=== PATIENT | female | born 1990 | race Caucasian/White ===

== ENCOUNTER 2020-01-19 18:48 | Emergency (ER) | payer BC, OTHER ==
[~2020-01-19] VITALS: Ht 162.6 cm; Wt 100.2 kg
[2020-01-19] MEDS ORDERED: LEVO25TA5 (18:55)
[2020-01-19] MEDS ORDERED: KETOROLAC 60 MG/2 ML VIAL (J1885) IM ONE (20:00)
[2020-01-19] MEDS ORDERED: KETO10TAB PO (21:24)
[2020-01-19] MEDS ORDERED: CYCL5TAB PO (21:24)
[2020-01-19 21:37] VITALS: BP 155/87
== END 2020-01-19 21:42 | disposition home or self-care (01) ==
LOC: M ED 18:48
DX: M54.16 Radiculopathy, lumbar region (principal); E06.3 Autoimmune thyroiditis; M32.9 Systemic lupus erythematosus, unspecified; Z79.899 Other long term (current) drug therapy; Z88.2 Allergy status to sulfonamides
CPT/HCPCS: 81001; 87088; 87186; 96372; 99283; J1885

== ENCOUNTER → 2020-07-23 | Outpatient (CLI) | payer OTHER ==
[~2020-07-23] MED LIST: ASPI81TAEC PO; CYCL5TAB PO; DOCU100C16 PO; IBUP1TAB7 PO; KETO10TAB PO; LEVO25TA5 PO; METF-839 PO; METF750T36 PO; PERCOCET PO
== END ==
LOC: M LABSMTC 12:05
PROVIDERS: ATTEND Anesthesiology
DX: Z11.59 Encounter for screening for other viral diseases (principal)
CPT/HCPCS: C9803; U0003

== ENCOUNTER 2020-07-28 06:20 | Day surgery (SDC) | payer OTHER ==
[2020-07-28] VITALS (7 sets, daily range): BP systolic 133–150; BP diastolic 74–85
[~2020-07-28] VITALS: Ht 162.6 cm; Wt 99.6 kg
[~2020-07-28 06:20] MED LIST changes: -ASPI81TAEC PO; -DOCU100C16 PO; -IBUP1TAB7 PO; -METF750T36 PO; -PERCOCET PO
[2020-07-28 06:50] LABS: HEMATOCRIT 42.5 % (36.0-47.0); HEMOGLOBIN 13.8 g/dl (12.0-15.5); MEAN CORPUSCULAR HEMOGLOBIN 30.7 pg (27.0-33.0); MEAN CORPUSCULAR HGB CONC 32.5 g/dl (32.0-36.5); MEAN CORPUSCULAR VOLUME 94.4 fl (80.0-96.0); PLATELET COUNT, AUTOMATED 302 10^3/uL (150-450); WHITE BLOOD COUNT 7.9 10^3/uL (4.0-10.0)
[2020-07-28] MEDS ORDERED: ceFAZolin SOD 2 GM in IV 1 EA IV ONE (07:00)
[2020-07-28] MEDS ORDERED: ROCURONIUM BROMIDE 50 MG/5 ML VIAL As Ordered ONE ×2 (07:00→08:06)
[2020-07-28] MEDS ORDERED: ONDANSETRON 4MG/2ML VIAL As Ordered ONE (07:00)
[2020-07-28] MEDS ORDERED: dexameTHASONE 4 MG/ML 1ML VIAL (J1100 PER 1MG) As Ordered ONE (07:00)
[2020-07-28] MEDS ORDERED: LIDOCAINE 2% 100MG/5ML SDV (FOR ANES.) As Ordered ONE (07:00)
[2020-07-28] MEDS ORDERED: LR 1,000 ML IV ONE (07:00)
[2020-07-28] MEDS ORDERED: propofoL 200 MG/20 ML VIAL As Ordered ONE ×2 (07:00→07:03)
[2020-07-28] MEDS ORDERED: ACETAMINOPHEN 1000MG 100ML IV BTL (OFIRMEV) (J0131 PER 10MG) As Ordered ONE (07:00)
[2020-07-28] MEDS ORDERED: fentaNYL 250 MCG/5 ML INJECTION (J3010) As Ordered ONE (07:00)
[2020-07-28] MEDS ORDERED: KETOROLAC 60MG 2ML VIAL As Ordered ONE (07:00)
[2020-07-28] MEDS ORDERED: MIDAZOLAM INJ 2MG/2ML VIAL (J2250 PER 1MG) As Ordered ONE (07:01)
[2020-07-28] MEDS ORDERED: BUPIVACAINE HCL 0.25% 30ML VIAL As Ordered ONE (07:15)
[2020-07-28] MEDS ORDERED: METHYLENE BLUE 0.5% (5MG/ML) 10 ML AMP (PROVAYBLUE) As Ordered ONE (07:15)
[2020-07-28] MEDS ORDERED: LABETALOL 100MG/20ML VIAL As Ordered ONE (08:12)
[2020-07-28] MEDS ORDERED: SUGAMMADEX SODIUM 500 MG/5 ML VIAL (BRIDION) As Ordered ONE (08:30)
[2020-07-28] MEDS ORDERED: MORPHINE 4 MG/ML 1ML VIAL/SYRINGE (J2270) IV PRN (10:30)
[2020-07-28] MEDS ORDERED: ONDANSETRON 4MG/2ML VIAL IV PRN ×2 (10:30→10:45)
[2020-07-28] MEDS ORDERED: LR 1,000 ML IV SCH (10:30)
[2020-07-28] MEDS ORDERED: PERCOCET 5MG/325MG TAB PO PRN ×2 (10:30)
[2020-07-28] MEDS ORDERED: oxyCODONE 5MG TAB PO PRN (10:30)
[2020-07-28] MEDS ORDERED: KETOROLAC 30 MG/ML 1ML VIAL IV PRN (10:30)
[2020-07-28] MEDS ORDERED: fentaNYL 100 MCG/2 ML INJECTION (J3010) IV PRN (10:30)
[2020-07-28] MEDS ORDERED: METF750T36 PO (10:36)
[2020-07-28] MEDS: LR 1,000 ML IV SCH ×2 (11:47→14:22)
--- NOTE | 2020-07-28 13:14 | ROOPDOC ---
[facility] Report Of Operation Report of Operation DATE OF PROCEDURE: 07/28/20 PREPROCEDURE DIAGNOSES: Abnormal uterine bleeding, chronic pelvic pain. Suspect adenomyosis POSTPROCEDURE DIAGNOSES: Same. PROCEDURE: Robotic-assisted total laparoscopic hysterectomy, right salpingectomy, cystoscopy SURGEON: Brooks Wilkinson D.O. FACOG PROFESSIONAL BONDSMAN: Starla Tellez ANESTHESIA: General endotracheal. ESTIMATED BLOOD LOSS: Approximately 50 mL. FLUIDS REPLACED: 1300 mL LR URINE OUTPUT: 200 mL COMPLICATIONS: None. FINDINGS: Normal-appearing ovaries bilaterally. Mildly enlarged uterus, surgically absent left fallopian tube. Cystoscopy: Bilateral ureteral orifice efflux, no bladder injury/suture material. PREOPERATIVE ANTIBIOTIC PROPHYLAXIS: Ancef 2 g IV 1. SPECIMEN(S): Uterus w/ cervix, fallopian tube (right) DESCRIPTION OF PROCEDURE: The patient was counseled, consented on the respective benefits, indications, alternatives of procedure. Informed consent was obtained. She was taken to the operating room with an IV running. She was placed on the operating table in dorsal supine position. Gen. anesthesia was administered and the airway was secured without any difficulty. She was placed in the low lithotomy position. . She was prepared and draped in the normal sterile fashion. A time out was performed per protocol. A Cuevas catheter was placed under sterile conditions. A sterile speculum was placed resulting in good visualization of the cervix. A single-tooth tenaculum was used to grasp the anterior lip cervix. The cervix was sequentially dilated with Antony dilators. A V-Care uterine manipulator was placed without any difficulty. The single-tooth tenaculum was removed, as well as the speculum. A sterile glove switch was performed. Attention was turned to the abdomen. 2mL 0.25% Marcaine was injected in the umbilicus. A 2mm incision was made, and through this incision a Veress needle was inserted into the intraperitoneal cavity. Intraperitoneal placement was confirmed with ease of flow of normal saline, positive drop test, no return on aspiration, and an opening pressure of less than 10 mmHg upon initial insufflation. The abdomen was insufflated with 2 L of gas. The Veress needle was removed. A supraumbilical 8 mm incision was made. Through this incision, the robotic trochar/cannula was inserted into the intraperitoneal cavity under direct visualization. No incidental bleeding nor injury was noted. Patient was placed in 30 Trendelenburg. The right and left trocars/cannulas were placed on both the right and left side through 8 mm incisions, guided by laparoscopic visualization. No incidental bleeding nor injury was noted. The robot was docked in typical fashion. The instruments were inserted, guided by laparoscopic visualization. My attention was turned to the robotic console. Using the vessel sealer device, the right fallopian tube was amputated. The right fallopian tube was brought through the 8 mm cannula without any difficulty. The right utero-ovarian ligament and right round ligament were sequentially clamped, coagulated and transected with the vessel sealer device. The vesicouterine peritoneum was dissected with the vessel sealer device to create the bladder flap, thus mobilizing the lower uterine segment and cervix off of the bladder. The left utero-ovarian ligament and left round ligament were sequentially clamped, coagulated and transected with the vessel sealer device. The remainder of the bladder flap was dissected using the vessel sealer device and blunt dissection. The entire V- care colpotomy cup was able to be delineated. The right uterine vasculature was sequentially clamped, coagulated and transected above the colpotomy cup. The left uterine vasculature was sequentially clamped, coagulated and transected above the colpotomy cup. Excellent blanching of the uterus was noted. A circumferential colpotomy was performed using the da Prasanth monopolar chetna, following the contour of the cup. The amputated cervix and uterus were brought through the colpotomy into and out of the vagina, intact as one unit. The vaginal cuff was closed with the V-lock barbed suture in running fashion. Excellent hemostasis was noted throughout the steps above. Gildardo was placed over the vaginal cuff to ensure hemostasis. The instruments were removed from the abdomen and the robot was un-docked. The gas was released from the abdomen and the patient was taken out of Trendelenburg. I re-scrubbed, and attention was turned to the pelvis. The Cuevas catheter was removed. The cystoscope was placed transurethrally into the bladder and normal saline was instilled. No bladder injury/suture material was noted. IV methylene blue had been administered by anesthesia and bilateral UO efflux was confirmed. The fluid was drained out of the bladder through the cystoscope device, then the cystoscope was removed. The vagina was copiously irrigated. A sterile digital vaginal exam revealed no significant bleeding and an intact vaginal cuff. A sterile glove switch was performed. The cannulas were removed. The skin incisions were closed with 4-0 Monocryl in subcuticular fashion. Sponge, needle and instrument counts were correct per protocol. The patient tolerated the entire procedure very well. She was transferred to the PACU in good and stable condition. DO JORGE LUIS Roche JONATHAN R. DO Jul 28, 2020 13:14
[2020-07-28] MEDS ORDERED: DOCU100C16 PO (13:54)
[2020-07-28] MEDS ORDERED: IBUP1TAB7 PO (13:54)
[2020-07-28] MEDS ORDERED: PERCOCET PO (13:54)
[2020-07-28] MEDS: DOCUSATE SODIUM 100 MG CAP PO SCH (21:34)
[2020-07-29] MEDS: LR 1,000 ML IV SCH (00:45)
[2020-07-29 02:00] VITALS: BP 138/81
[2020-07-29 06:00] VITALS: BP 139/80
[2020-07-29] MEDS ORDERED: LEVOTHYROXINE 25MCG TABLET (0.025MG) PO SCH (06:00)
[2020-07-29] MEDS: DOCUSATE SODIUM 100 MG CAP PO SCH (08:05)
== END 2020-07-29 11:00 | disposition home or self-care (01) ==
LOC: M SDC 06:20 → M MS5PR 11:35 → M SDC 07-29 11:00
PROVIDERS: ATTEND Obstetrics & Gynecology
DX: N93.9 Abnormal uterine and vaginal bleeding, unspecified (principal); R10.2 Pelvic and perineal pain; N72 Inflammatory disease of cervix uteri; E03.9 Hypothyroidism, unspecified; E28.2 Polycystic ovarian syndrome; G43.909 Migraine, unspecified, not intractable, without status migrainosus; M32.9 Systemic lupus erythematosus, unspecified; Z79.890 Hormone replacement therapy; Z79.84 Long term (current) use of oral hypoglycemic drugs; Z88.2 Allergy status to sulfonamides; Z91.040 Latex allergy status; Z91.048 Other nonmedicinal substance allergy status
CPT/HCPCS: 36415; 58571; 81025; 85027; 86850; 88307; J0131; J0690; J1100; J1885; J2250; J2405; J3010; Q9968

== ENCOUNTER → 2020-08-15 | Outpatient (REF) | payer OTHER ==
[~2020-08-15] MED LIST changes: +ASPI81TAEC PO; +DOCU100C16 PO; +IBUP1TAB7 PO; +METF750T36 PO; +PERCOCET PO
[2020-08-15 13:45] LABS: HEMATOCRIT 42.6 % (36.0-47.0); HEMOGLOBIN 13.8 g/dl (12.0-15.5); MEAN CORPUSCULAR HEMOGLOBIN 30.7 pg (27.0-33.0); MEAN CORPUSCULAR HGB CONC 32.4 g/dl (32.0-36.5); MEAN CORPUSCULAR VOLUME 94.7 fl (80.0-96.0); PLATELET COUNT, AUTOMATED 321 10^3/uL (150-450); WHITE BLOOD COUNT 7.9 10^3/uL (4.0-10.0)
[2020-08-15 14:19] LABS: FREE T4 0.9 NG/DL (0.76-1.46); THYROID STIMULATING HORMONE 0.921 uIU/ML (0.358-3.740)
[2020-08-15 14:23] LABS: ESTRADIOL 93.5 PG/ML; FOLLICLE STIMULATING HORMONE 3.5 mIU/mL; LUTEINIZING HORMONE 6.7 mIU/mL
[2020-08-15 14:37] LABS: HEMOGLOBIN A1c 5.2 %
[2020-08-16 12:07] LABS: TESTOSTERONE FREE (DIRECT) 3.1 pg/mL (0.0-4.2)
== END ==
LOC: M PLALAB 11:04
PROVIDERS: ATTEND Obstetrics & Gynecology
DX: E28.2 Polycystic ovarian syndrome (principal)

== ENCOUNTER 2020-09-22 05:03 | Inpatient (IN) | payer OTHER ==
[~2020-09-22] VITALS: Ht 162.6 cm; Wt 98.3 kg
[~2020-09-22 05:03] MED LIST changes: -ASPI81TAEC PO
[2020-09-22] MEDS ORDERED: NS 1,000 ML IV SCH (07:06)
[2020-09-22] MEDS ORDERED: KETOROLAC 30 MG/ML 1ML VIAL IV ONE ×2 (07:15→09:30)
[2020-09-22] MEDS ORDERED: NS 1,000 ML IV ONE (07:15)
[2020-09-22 07:33] LABS: BASO # 0.1 10^3/uL (0.0-0.2); BASO % 0.5 % (0.0-1.0); EOS # 0.4 10^3/uL (0.0-0.5); EOS % 3.6 % (0.0-3.0); HEMATOCRIT 41.8 % (36.0-47.0); HEMOGLOBIN 13.8 g/dl (12.0-15.5); LYMPH # 1.8 10^3/uL (1.5-5.0); LYMPH % 16.7 % (24.0-44.0); MEAN CORPUSCULAR HEMOGLOBIN 30.5 pg (27.0-33.0); MEAN CORPUSCULAR VOLUME 92.3 fl (80.0-96.0); MONO # 0.8 10^3/uL (0.0-0.8); MONO % 7.3 % (0.0-5.0); NEUTROPHILS # 7.5 10^3/uL (1.5-8.5); NEUTROPHILS % 71.6 % (36.0-66.0); PLATELET COUNT, AUTOMATED 318 10^3/uL (150-450); RED BLOOD COUNT 4.53 10^6/uL (4.00-5.40); WHITE BLOOD COUNT 10.5 10^3/uL (4.0-10.0)
[2020-09-22] MEDS ORDERED: ISOVUE-370 76% 100ML VIAL As Ordered ONE (07:47)
[2020-09-22 07:56] LABS: ALBUMIN 4.1 GM/DL (3.2-5.2); BILIRUBIN,DIRECT 0.2 MG/DL (0.0-0.2); BILIRUBIN,TOTAL 0.6 MG/DL (0.2-1.0); TOTAL PROTEIN 7.4 GM/DL (6.4-8.2)
--- NOTE | 2020-09-22 08:42 | REP ---
INDICATION: abd pain. COMPARISON: None. TECHNIQUE: Bolus 100 mL Isovue 370 scanning through the abdomen and pelvis with coronal and sagittal reconstructions. FINDINGS: CT abdomen: There is calcified granuloma in the lateral basal segment of the left lower lobe. Minor dependent atelectatic changes are seen without effusion or mass heart is not enlarged there is no pericardial thickening or effusion. No hiatal hernia. See no hepatosplenomegaly the spleen shows 2 wedges of hypodensity within intervening normal tissue. There is no ascites or perisplenic hematoma. No history of trauma. Gallbladder is surgically absent. Pancreas was unremarkable. The aorta is without aneurysm. No periaortic or other retroperitoneal lymphadenopathy seen small bowel loops and colon in the abdomen proper were unremarkable. Kidneys show symmetric enhancement and no mass, stone, or hydronephrosis. There is a interpolar left renal cyst peripherally. Lung window review of all CT slices in the abdomen and pelvis shows no free air perforation. Bone windows show lumbar and thoracic spine with no compression deformities or destructive lesions a few small marginal osteophytes and lower thoracic levels are normal in this age group. Visualized ribs are intact CT pelvis: Sacrum, SI joints, iliac bones, hips and acetabulae show no fracture or destructive lesion. There is some minor degenerative changes did fear left SI joint. Abdominal and pelvic portions of colon show scattered stool and gas without colitis or diverticulitis. A trace amount of free fluid in the right deep pelvis adjacent to the sigmoid. Small bowel loops are fluid-filled but not abnormally dilated. There are no inflammatory changes in the mesentery. Uterus is absent the vaginal cuff intact. The right ovary shows an 18 mm dominant follicle and low-density throughout. I do not see a solid adnexal mass. No ventral or inguinal hernia, inguinal or pelvic lymphadenopathy identified. IMPRESSION: 1. Small amount of free fluid in the deep pelvis adjacent to the sigmoid and the deep and inferior to the right ovary which has low density throughout in a dominant follicle 18 mm. I could not exclude ruptured ovarian cyst or follicle. Patient is status post hysterectomy. 2. Multiple low-density wedge-shaped areas in the spleen with normal intervening enhancing parenchyma most consistent with splenic infarcts. There is no upper abdominal ascites. Liver unremarkable. 3. Prior cholecystectomy. Small left renal cyst. No other significant finding. <Electronically signed by Ranjit Walker > 09/22/20 [id number]
--- NOTE | 2020-09-22 09:57 | ECGEPIP ---
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
--- NOTE | 2020-09-22 11:09 | REP ---
In the right ovary. INDICATION: right pain Ct ?hemor cyst. COMPARISON: Comparison is made with today's CT study.. TECHNIQUE: Transabdominal and transvaginal scanning were performed. FINDINGS: The uterus is surgically absent. A small right-sided ureterocele is noted incidentally in the urinary bladder. This corresponds to the CT. No free fluid is seen in the cul-de-sac.. The right ovary has dimensions of 2.9 x 2.2 x 2.8 cm. It's Doppler flow is normal with a resistive index of 0.38. There is a 1.9 cm hypoechoic cyst The left ovary dimensions are normal as well at 2.3 x 2.1 x 1.6 cm. It's Doppler flow was normal with resistive index of 0.57. IMPRESSION: Incidental small right ureterocele in the urinary bladder. 1.9 cm hypoechoic follicle cyst right ovary. Normal left ovary. No free fluid. Uterus surgically absent.. <Electronically signed by Arsh Cano > 09/22/20 [id number]
[2020-09-22] MEDS ORDERED: ONDANSETRON 4MG/2ML VIAL IV ONE (12:30)
[2020-09-22] MEDS: MORPHINE 2 MG/ML 1ML VIAL (J2270) IV PRN ×2 (12:53→16:55)
[2020-09-22] MEDS ORDERED: ONDANSETRON 4MG/2ML VIAL IV PRN (14:00)
[2020-09-22] MEDS ORDERED: oxyCODONE 5MG TAB PO PRN (14:00)
[2020-09-22] MEDS: LEVOTHYROXINE 25MCG TABLET (0.025MG) PO SCH (15:59)
[2020-09-22 16:50] LABS: INR 1.03; PARTIAL THROMBOPLASTIN TIME 28.3 SECONDS (24.2-38.5); PROTHROMBIN TIME 13.7 SECONDS (12.5-14.3)
[2020-09-22] MEDS: ACETAMINOPHEN 500 MG TAB PO SCH ×2 (16:54→20:10)
[2020-09-22] MEDS: NS 1,000 ML IV SCH ×2 (17:48→20:05)
[2020-09-22 18:01] VITALS: BP 135/84
--- NOTE | 2020-09-22 20:29 | HPEPDOC ---
General Date of Admission Sep 22, 2020 at 13:56 Date of Service: Sep 22, 2020 Chief Complaint The patient is a 30-year-old female admitted with a reason for visit of Intractable Pain,Splenic Infarct. Source: Patient History of Present Illness Mrs. Navarro is a 30 year old female with Lupus not on medication her with intractable abdominal pain found to have splenic infarct. Pain started yesterday afternoon. Abdominal pain was right sided, sharp, and radiated up to the chest, shoulders, and neck. Pain would be constant with waves of worsening pain. Worse with movement, better with rest. Pain progressively worsened and she decided to come to the ED. Pain was 9/10. Imaging demonstrated small amounts of pelvic free fluid which may be from ruptured ovarian cyst or follicle. Also demonstrated splenic infarcts. ED spoke with general surgery. No surgery at this time but rec ommended work up for cause of infarct. ED called for admission. Due to her intractable pain, her diet is poor. Otherwise, no fever/chills or dysuria. Abdomen was tender on the right side, but not on the left. She has never had a miscarriage, but she did have a ruptured ectopic . No known family history of hypercoagulably. Denies history of atrial fibrillation. Home Medications Scheduled Levothyroxine Sodium (Levothyroxine Sodium) 25 Mcg Tablet, 25 MCG PO DAILY, (Reported) Allergies Coded Allergies: Sulfa (Sulfonamide Antibiotics) (Verified Allergy, Intermediate, CHILD, 07/18/20) anaph latex (Verified Allergy, Intermediate, RASH, 07/18/20) adhesive (Verified Adverse Reaction, Unknown, SURGICAL GLUE- ITCHING, 07/18/20) Past Medical History Medical History 1. Lupus 2. Rosendo's thyroiditis 3. PCOS Surgical History 1. Tonsillectomy and adenoidectomy 2. Cholecystectomy 3. Left fallopian tube removal 4. Hysterectomy Family History Father: Unknown history Mother: Stroke and disease of the mitral valve Social History Alcohol: rarely Drugs: denies A-FIB/CHADSVASC A-FIB History Current/History of A-Fib/PAF?: No Review of Systems Constitutional: Denies: Chills, Fever Eyes: Denies: Vision change ENT: Denies: Sore Throat Skin: Denies: Rash Pulmonary: Reports: Dyspnea (from pain), Pleuritic Chest Pain; Denies: Cough Cardiovascular: Denies: Palpitations, Lt Headedness Gastrointestinal: Reports: Nausea, Abdominal Pain (right sided) Genitourinary: Denies: Dysuria Hematologic: Denies: Bruising Endocrine: Denies: Polydipsia, Polyphagia, Polyuria Physical Examination General Exam: Positive: Alert, Cooperative, Mild Distress Eye Exam: Positive: EOMI; Negative: Sclera icteric ENT Exam: Positive: Atraumatic Neck Exam: Positive: Supple Chest Exam: Positive: Clear to auscultation; Negative: Rales, Rhonchi, Wheezing Heart Exam: Positive: Rate Normal, Regular Rhythm Abdomen Exam: Positive: Normal bowel sounds, Soft, Tenderness Extremity Exam: Negative: Edema Neuro Exam: Positive: Cranial Nerves 3-12 NL Psych Exam: Positive: Mood NL Vital Signs Vital Signs Date Time Temp Pulse Resp B/P (MAP) Pulse Ox O2 Delivery O2 Flow Rate FiO2 09/22/20 18:01 99.0 62 18 135/84 (101) 98 Room Air Laboratory Data Labs 24H Laboratory Tests 2 09/22/20 07:20: Immature Granulocyte % (Auto) 0.3, Neutrophils (%) (Auto) 71.6H, Lymphocytes (%) (Auto) 16.7L, Monocytes (%) (Auto) 7.3H, Eosinophils (%) (Auto) 3.6H, Basophils (%) (Auto) 0.5, Neutrophils # (Auto) 7.5, Lymphocytes # (Auto) 1.8, Monocytes # (Auto) 0.8, Eosinophils # (Auto) 0.4, Basophils # (Auto) 0.1, Nucleated Red Blood Cells % (auto) 0.0, Total Bilirubin 0.6, Direct Bilirubin 0.2, Aspartate Amino Transf (AST/SGOT) 23, Alanine Aminotransferase (ALT/SGPT) 32, Alkaline Phosphatase 74, Total Protein 7.4, Albumin 4.1, Albumin/Globulin Ratio 1.2, Lipase 85 09/22/20 07:27: POC Glucose (Misc Panel) 90, POC Sodium (Misc Panel) 139, POC Potassium (Misc Panel) 4.1, POC Chloride (Misc Panel) 103, POC Total CO2 (Misc Panel) 26.0, POC Blood Urea Nitrogen (Misc Panel 8, POC Ionized Calcium (Misc Panel) 4.9, POC Creatinine (Misc Panel) 0.7, POC Hematocrit (Misc Panel) 42.0 09/22/20 14:53: Coronavirus (COVID-19)(PCR) NEGATIVE 09/22/20 16:25: Erythrocyte Sedimentation Rate 10, Prothrombin Time 13.7, Prothromb Time International Ratio 1.03, Activated Partial Thromboplast Time 28.3, C-Reactive Protein, Quantitative 1.53H 09/22/20 16:26: CBC/BMP Laboratory Tests 09/22/20 07:20 Assessment/Plan Mrs. Navarro is a 30 year old female with Lupus who is here with intractable abdominal pain from splenic infarction. Unknown etiology. Will monitor on Tele for atrial fibrillation and order an echo with bubble study to look for PFO. Will also obtain a hypercoagulable work up. Plan / VTE VTE Prophylaxis Ordered?: Yes Plan Plan 1. Intractable pain -2/2 to splenic infarcts -Pain control with scheduled acetaminophen and breakthrough pain with oxycodone -Clear liquid diet and IV fluids due to poor appetite -Zofran for the nausea 2. Splenic infarct -Monitor on tele for atrial fibrillation -Echocardiogram with bubble study. Look for emboli in the ventricles and look for PFO -Hypercoagulable work up -Denies miscarriage, denies family history of hypercoagulability 3. Hypothyroidism -Levothyroxine 4. DVT ppx -SCD and TEDs ASA FINNEGAN DO Sep 22, 2020 20:29
[2020-09-22 22:00] VITALS: BP 125/70
[2020-09-23 06:00] VITALS: BP 122/75
[2020-09-23] MEDS: LEVOTHYROXINE 25MCG TABLET (0.025MG) PO SCH (06:21)
[2020-09-23] MEDS: ACETAMINOPHEN 500 MG TAB PO SCH ×3 (08:51→20:25)
--- NOTE | 2020-09-23 11:26 | IPNPDOC ---
Date Seen The patient was seen on 09/23/20. Progress Note SUBJECTIVE: Patient is a 30 year old female who presented for severe right sided abdominal pain that was extending up her shoulder and back. The patient had received a CT of the abdomen and pelvis which demonstrated free pelvic fluid suggesting a possible right ruptured ovarian cyst or follicle. Additionally hypodense lesions the spleen were noted which were consistent for possible splenic infarction. Patient states that she has a history of Lupus although she states that she only has a positive ISRAEL. She did use to follow with Rheumatology in [place] and at one point was on Plaquenil for a year before discontinuing due to multiple recurrent upper respiratory infections. She has denied any previous history of clotting disorders in herself or family members. She has 2 children. She denies any miscarriages although did have an ectopic . She does admit to a history of Rosendo, Raynaud, photosensitivity, and chronic fatigue. She has recently had a total hysterectomy due to adenomyosis. Today the patient states that her pain has improved. She denies any current pain. She states that she feels well. OBJECTIVE PHYSICAL EXAMINATION: VITAL SIGNS: Please see below. GENERAL: Awake, alert, and oriented. Appears in no acute distress. Sitting up in bed comfortably. HEENT: Atraumatic, normocephalic. Eyes are nonicteric. Trachea is midline. Mucous membranes are pink and moist CARDIOVASCULAR: Normal S1, S2. Regular rate and rhythm. No clicks rubs or murmurs RESPIRATORY: Clear vesicular breath sounds bilaterally. No wheezes, rhonchi, or rales. Symmetric chest expansion. Good respiratory effort. ABDOMINAL: Soft, nondistended. Nontender. Normoactive bowel sounds throughout EXTREMITIES: No edema. Full and equal pulses in bilateral upper and lower extremities NEUROLOGICAL: No focal neurological deficits PSYCHOLOGICAL: Mood and affect appear appropriate LABORATORY DATA, IMAGING STUDIES, MICROBIOLOGY: Please see below. Echocardiogram: Pending DVT prophylaxis ordered?: Mechanical ASSESSMENT AND PLAN: Patient is a 30 year old female with a past medical history of ISRAEL positive questionable SLE, who presented to [facility] with intractable abdominal pain. CT of the abdomen and pelvis demonstrated free fluid in the pelvis suggesting a possible ruptured ovarian cyst/follicle. Additionally, imaging demonstrated two hypodense splenic lesions consistent with splenic infarct PROBLEMS: 1. Abdominal Pain -Patient presented with right sided abdominal pain. Imaging demonstrating free fluid in the pelvis suggesting a right ruptured ovarian cyst/follicle. Additionally, patient had two hypodense splenic lesions consistent with a splenic infarct -Patient abdominal pain has improved. She states that she feels well today. Her abdominal pain may have been secondary to ruptured ovarian cyst as it was p rimarily right sided -Continue with pain medications prn 2. Splenic Infarction -Patient has CT imaging consistent with possible splenic infarction. At this point the etiology is unknown. DDX includes cardioembolic source vs hypercoagulopathy such as antiphospholipid antibody syndrome, SLE, or inflammatory process. -She states that she has a history of SLE however she states that she has only ever had a positive ISRAEL and all other testing was negative. If true, unlikely that she has lupus as 15-20% of the general population will have positive ISRAEL. She did follow with a Maintenance Of Way Clerk in [place] who started her on Plaquenil due to fatigue. However this was discontinued in a year as her fatigue did not improve and she had medication side effects. She also has a history of hypothyroidism from Rosendo and Raynaud. Autoimmune/hypercoagulopathy is possible. Consider possible antiphospholipid antibody syndrome. She has had a hypercoagulable work up ordered through ED including Anti-cardiolipin antibody. However to complete workup for antiphospholipid she would need Anti-beta2 glycoprotein and lupus anticoagulant. However, this can be completed outpatient -Echocardiogram ordered to rule out cardioembolic source of splenic infarction 3. Hypothyroidism -Continue with Synthroid DISPOSITION: Patient is clinically improved. Currently awaiting echocardiogram. Likely D/C in 24-48 hours VS, I&O, 24H, Fishbone Vital Signs/I&O Vital Signs Date Time Temp Pulse Resp B/P (MAP) Pulse Ox O2 Delivery O2 Flow Rate FiO2 09/23/20 06:00 98.6 63 20 122/75 (91) 97 Room Air I&O- Last 24 Hours up to 6 AM 09/23/20 06:00 Intake Total 3860 ml Output Total 300 ml Balance 3560 ml Laboratory Data 24H LABS Laboratory Tests 2 09/22/20 14:53: Coronavirus (COVID-19)(PCR) NEGATIVE 09/22/20 16:25: Erythrocyte Sedimentation Rate 10, Prothrombin Time 13.7, Prothromb Time International Ratio 1.03, Activated Partial Thromboplast Time 28.3, C-Reactive Protein, Quantitative 1.53H 09/22/20 16:26: ANGELIA CONKLIN DO Sep 23, 2020 11:26
[2020-09-23 14:00] VITALS: BP 125/76
[2020-09-23 20:40] VITALS: O2SAT 99
[2020-09-23 22:00] VITALS: BP 143/82
[2020-09-24] MEDS: LEVOTHYROXINE 25MCG TABLET (0.025MG) PO SCH (05:36)
[2020-09-24 06:00] VITALS: BP 138/80
[2020-09-24 06:39] LABS: HEMATOCRIT 38.8 % (36.0-47.0); HEMOGLOBIN 12.6 g/dl (12.0-15.5); MEAN CORPUSCULAR HEMOGLOBIN 30.7 pg (27.0-33.0); MEAN CORPUSCULAR HGB CONC 32.5 g/dl (32.0-36.5); MEAN CORPUSCULAR VOLUME 94.4 fl (80.0-96.0); PLATELET COUNT, AUTOMATED 272 10^3/uL (150-450); RED BLOOD COUNT 4.11 10^6/uL (4.00-5.40); WHITE BLOOD COUNT 10.3 10^3/uL (4.0-10.0)
[2020-09-24 06:59] LABS: BLOOD UREA NITROGEN 5 MG/DL (7-18); CALCIUM LEVEL 8.5 MG/DL (8.5-10.1); CARBON DIOXIDE LEVEL 27 MEQ/L (21-32); CHLORIDE LEVEL 110 MEQ/L (98-107); CREATININE FOR GFR 0.71 MG/DL (0.55-1.30); GLOMERULAR FILTRATION RATE > 60.0 (>60); GLUCOSE, FASTING 94 MG/DL (70-100); POTASSIUM SERUM 4.2 MEQ/L (3.5-5.1); SODIUM LEVEL 142 MEQ/L (136-145)
[2020-09-24] MEDS: ACETAMINOPHEN 500 MG TAB PO SCH ×3 (09:42→21:44)
[2020-09-24] MEDS: ASPIRIN 81 MG ENTERIC TAB PO SCH (09:42)
--- NOTE | 2020-09-24 09:53 | ECHO ---
DATE OF PROCEDURE: 09/23/2020 Age: 30 Gender: Female Height: 163 cm Weight: 97 kg REFERRING PHYSICIAN: Dudley Murillo DO INDICATION: Cardioembolic source of emboli. MEASUREMENTS: 2D Measurements: Aortic root 3.1 cm Left atrium 3.3 cm Interventricular septum 1.02 cm Posterior wall 0.84 cm Left ventricle diastole 5.0 cm Inferior vena cava 2.0 cm (more than 50% respiratory variation) Doppler Measurements: No aortic stenosis No aortic regurgitation Aortic valve velocity 126 cm/s LVOT velocity 6.8 cm/s No mitral regurgitation No mitral stenosis No aortic regurgitation Mitral E velocity 170 cm/s Mitral A velocity 78 cm/s Mitral deceleration time 209 m/s Trace tricuspid regurgitation Trace pulmonic regurgitation Pulmonary acceleration time 140 m/s MITRAL ANNULAR TISSUE DOPPLER E prime septal 10.9 cm/s, E prime lateral 11.9 cm/s DESCRIPTION: Rhythm was sinus. Image quality was fair. No pericardial effusion. This was a 2D, M-mode, color flow Doppler, and pulsed wave Doppler examination including mitral annular tissue Doppler. Also included was a saline bubble study. CONCLUSIONS: 1. Positive bubble study for detection of intracardiac shunting from right heart to left hear probably at the level of the interatrial septum. 2. Suspicious (probable) for interatrial septal aneurysm. 3. Normal left ventricle size and systolic function. Normal left ventricular (LV) wall thickness. Normal regional left ventricular (LV) wall motion and wall thickening. Normal left ventricular (LV) systolic function. Left ventricular ejection fraction (LVEF) 60% by visual estimate. Normal left ventricular (LV) diastolic function. 4. Otherwise normal appearing echocardiogram Doppler findings. RECOMMENDATIONS: I recommend further evaluation with a transesophageal echocardiogram with saline bubble study. MTDD
[2020-09-24 10:18] LABS: DRVV SCREEN 40.3 SEC
--- NOTE | 2020-09-24 10:59 | IPNPDOC ---
Date Seen The patient was seen on 09/24/20. Progress Note SUBJECTIVE: Patient was seen and examined this morning. There have been no acute events overnight. She did receive an transthoracic echocardiogram yesterday which demonstrated a possible septal defect. A WIN has been arranged. The patient has been informed of the results. She otherwise states that she feels ok. She does note some increased pain on her left side today which is fairly new. She denies any shortness of breath or chest pain OBJECTIVE PHYSICAL EXAMINATION: VITAL SIGNS: Please see below. GENERAL: Awake, alert, and oriented. Appears in no acute distress. Sitting up in bed comfortably. HEENT: Atraumatic, normocephalic. Eyes are nonicteric. Trachea is midline. Mucous membranes are pink and moist CARDIOVASCULAR: Normal S1, S2. Regular rate and rhythm. No clicks rubs or murm urs RESPIRATORY: Clear vesicular breath sounds bilaterally. No wheezes, rhonchi, or rales. Symmetric chest expansion. Good respiratory effort. ABDOMINAL: Soft, nondistended. Nontender. Normoactive bowel sounds throughout EXTREMITIES: No edema. Full and equal pulses in bilateral upper and lower ex tremities NEUROLOGICAL: No focal neurological deficits PSYCHOLOGICAL: Mood and affect appear appropriate LABORATORY DATA, IMAGING STUDIES, MICROBIOLOGY: Please see below. Echocardiogram: Positive bubble study for detection of intracardiac shunting from right heart to left heart at the level of the interarterial septum suspicious for interarterial septal aneurysm DVT prophylaxis ordered?: Mechanical ASSESSMENT AND PLAN: Patient is a 30 year old female with a past medical history of ISRAEL positive questionable SLE, who presented to [facility] with intractable abdominal pain. CT of the abdomen and pelvis demonstrated free fluid in the pelvis suggesting a possible ruptured ovarian cyst/follicle. Additionally, imaging demonstrated two hypodense splenic lesions consistent with splenic infarct PROBLEMS: 1. Abdominal Pain -Patient presented with right sided abdominal pain. Imaging demonstrating free fluid in the pelvis suggesting a right ruptured ovarian cyst/follicle. Additionally, patient had two hypodense splenic lesions consistent with a splenic infarct -Patient abdominal pain has improved. She states that she feels well today. Her abdominal pain may have been secondary to ruptured ovarian cyst as it was primarily right sided however, may also have been 2/2 to abdominal serositis given her history of Lupus -Continue with pain medications prn 2. Splenic Infarction -Patient has CT imaging consistent with possible splenic infarction. At this point the etiology is unknown. DDX includes cardioembolic source vs hypercoagulopathy such as antiphospholipid antibody syndrome, SLE, or inflammatory process. -She states that she has a history of SLE however she states that she has only ever had a positive ISRAEL and all other testing was negative. If true, unlikely that she has lupus as 15-20% of the general population will have positive ISRAEL. She did follow with a Labor Contract Analyst in [place] who started her on Plaquenil due to fatigue. However this was discontinued in a year as her fatigue did not improve and she had medication side effects. She also has a history of hypothyroidism from Rosendo and Raynaud. Autoimmune/hypercoagulopathy is possible. -TTE demonstrated a positive bubble study suggesting a interarterial sepal aneurysm/shunt. Patient is currently planned to have a WIN for further evaluation. However, if the source of her splenic infarcts is cardioembolic there would likely be other areas of infarction such as in the brain. Will order a brain MRI to assess for further cardioembolic disease. -Case was discussed with Rheumatology who agree that her history can be suggestive of Lupus. Recommendations for additional blood work to look for both Lupus and antiphospholipid antibody syndrome. These tests would have to be completed off of anticoagulation. Patient will follow-up in Rheum after discharge -Will obtain CT angiography or abdomen and pelvis -Continue Aspirin 3. 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 Unclear if her shunt is at all related to her splenic infarcts. Will obtain a WIN to further assess. Patient denies any history of arrhythmias or feelings of palpitations. -Will obtain MRI of the brain to chronic cardioembolic disease 4. Hypothyroidism -Continue with Synthroid DISPOSITION: Patient has clinically improved. Currently awaiting WIN. Likely discharge in 24-48 hours Attending Note: Patient seen and examined independently. Agree with resident's note. VS, I&O, 24H, Fishbone Vital Signs/I&O Vital Signs Date Time Temp Pulse Resp B/P (MAP) Pulse Ox O2 Delivery O2 Flow Rate FiO2 09/24/20 06:00 96.7 68 18 138/80 (99) 98 09/23/20 20:40 Room Air I&O- Last 24 Hours up to 6 AM 09/24/20 06:00 Intake Total 1560 ml Output Total 1650 ml Balance -90 ml Laboratory Data 24H LABS Laboratory Tests 2 09/24/20 06:18: Nucleated Red Blood Cells % (auto) 0.0, Anion Gap 5L, Glomerular Filtration Rate > 60.0, Calcium Level 8.5 CBC/BMP Laboratory Tests 09/24/20 06:18 ANGELIA CONKLIN DO Sep 24, 2020 10:59 MARIKA PARSONS MD Sep 24, 2020 18:19
[2020-09-24 11:44] LABS: COMPLEMENT C3 131 MG/DL (90-180); COMPLEMENT C4 18 MG/DL (10-40)
[2020-09-24 12:00] VITALS: O2SAT 97
[2020-09-24] MEDS ORDERED: ISOVUE-370 76% 100ML VIAL As Ordered ONE (12:08)
[2020-09-24] MEDS ORDERED: MORPHINE 2 MG/ML 1ML VIAL (J2270) IV ONE (12:30)
[2020-09-24 14:00] VITALS: BP 140/90
--- NOTE | 2020-09-24 14:15 | REP ---
INDICATION: eval dvt. COMPARISON: None. TECHNIQUE: Bilateral lower extremity duplex venous ultrasound. FINDINGS: The deep veins are anechoic and fully compressible from the groin to the popliteal fossa in the left and right lower extremity. Color flow imaging is homogeneous. Spectral Doppler interrogation demonstrates intact respiratory variation in flow and normal manual augmentation of flow. There is no evidence of deep vein thrombosis. IMPRESSION: Negative bilateral lower extremity duplex venous ultrasound. No evidence of deep vein thrombosis. <Electronically signed by Arsh Cano > 09/24/20 [id number]
--- NOTE | 2020-09-24 15:20 | REP ---
INDICATION: Splenic infarcts COMPARISON: CT abdomen pelvis 09/22/2012 TECHNIQUE: CT angiogram of the abdomen and pelvis was performed with intravenous administration of 100 cc of Isovue 370, without oral contrast. 3D MIP reconstruction images performed. FINDINGS: Abdominal aorta: The abdominal aorta shows no evidence of an aneurysm or dissection. 3D reconstruction confirms. Origin of the celiac axis is without stenosis or aneurysm see no vessel cut off or aneurysm involving the splenic artery or the hepatic artery. The SMA and proximal branches are unremarkable. The right and left main renal arteries show no stenosis or aneurysm. Lung bases: Showed an old calcified granuloma in the left lower lobe but remain clear Liver: Normal Gallbladder: Surgically absent Spleen: Earlier arterial phase injection shows the 2 areas of splenic infarction to less advantage than the previous study but there are no new areas. Infarcts do not appear to have extended further in the spleen size is unchanged no adjacent ascites, subcapsular hematoma or other finding in the spleen. Adrenals: Normal. Pancreas: Normal. Kidneys: Again show a small cyst interpolar region laterally on the left. Unchanged kidneys and collecting systems. Small and large bowel: No hiatal hernia retained food is distends the stomach without wall thickening or mass small bowel loops and colon show no acute finding. Free fluid: None. Adenopathy: None. Appendix: Without inflammatory change about the cecum. Pelvis: Status post hysterectomy. I do not see free pelvic fluid on today's study nor evidence for ovarian cyst. No pelvic adenopathy. Bladder without mass wall thickening or stone. No ventral or inguinal hernia. Osseous structures: Unremarkable. IMPRESSION: There is no CT angiographic evidence of aortic aneurysm or dissection. The celiac axis and splenic artery are unremarkable and without vessel cut off, aneurysm or other acute finding. Likewise the SMA and renal arteries were under remarkable. Trace pelvic fluid on the previous study has resolved and there is no visible ovarian cyst. Kidneys ureters and bladder without stone mass or hydronephrosis. Bowel loops are unremarkable. No free air. No change in the size of the spleen and there are 2 edge shaped splenic infarcts again seen. These are less obvious than the previous study because of the earlier phase of contrast injection when filming the angiogram. Nevertheless no interval change of the spleen or or new infarcts. <Electronically signed by Ranjit Walker > 09/24/20 [id number]
--- NOTE | 2020-09-24 18:18 | REPVR ---
PROCEDURE INFORMATION: Exam: MR Head Without Contrast Exam date and time: 09/24/2020 5:52 PM Age: 30 years old Clinical indication: Pain; Headache; Cluster; Additional info: Eval infarcts TECHNIQUE: Imaging protocol: MR of the head without contrast. COMPARISON: No relevant prior studies available. FINDINGS: Brain: No intracranial hemorrhage or extra-axial fluid collection. No evidence of mass effect or midline shift. No restricted diffusion to suggest acute infarct. Cerebral ventricles: Ventricles, cisterns, and sulci are normal. Bones/joints: Unremarkable. Paranasal sinuses: Left maxillary sinus retention cyst. Mastoid air cells: No mastoid effusion. Orbits: Unremarkable. Soft tissues: Unremarkable. IMPRESSION: No acute intracranial findings. Electronically signed by: Zen Mccormack On 09/24/2020 18:17:58 PM
[2020-09-24 21:00] VITALS: O2SAT 98
[2020-09-24 22:00] VITALS: BP 142/86
[2020-09-25] MEDS: LEVOTHYROXINE 25MCG TABLET (0.025MG) PO SCH (05:27)
[2020-09-25 06:00] VITALS: BP 140/82
[2020-09-25 06:32] LABS: HEMATOCRIT 40.1 % (36.0-47.0); MEAN CORPUSCULAR HEMOGLOBIN 30.6 pg (27.0-33.0); MEAN CORPUSCULAR HGB CONC 32.4 g/dl (32.0-36.5); MEAN CORPUSCULAR VOLUME 94.4 fl (80.0-96.0); PLATELET COUNT, AUTOMATED 306 10^3/uL (150-450); RED BLOOD COUNT 4.25 10^6/uL (4.00-5.40); WHITE BLOOD COUNT 9.2 10^3/uL (4.0-10.0)
[2020-09-25 07:00] LABS: BLOOD UREA NITROGEN 8 MG/DL (7-18); CALCIUM LEVEL 8.7 MG/DL (8.5-10.1); CARBON DIOXIDE LEVEL 27 MEQ/L (21-32); CHLORIDE LEVEL 107 MEQ/L (98-107); CREATININE FOR GFR 0.62 MG/DL (0.55-1.30); GLOMERULAR FILTRATION RATE > 60.0 (>60); GLUCOSE, FASTING 91 MG/DL (70-100); POTASSIUM SERUM 3.7 MEQ/L (3.5-5.1); SODIUM LEVEL 140 MEQ/L (136-145)
[2020-09-25 09:00] VITALS: O2SAT 98
[2020-09-25] MEDS: ASPIRIN 81 MG ENTERIC TAB PO SCH (10:06)
[2020-09-25] MEDS: ACETAMINOPHEN 500 MG TAB PO SCH ×3 (10:06→21:42)
[2020-09-25] MEDS ORDERED: ASPI81TAEC PO (10:22)
--- NOTE | 2020-09-25 11:50 | IPNPDOC ---
Date Seen The patient was seen on 09/25/20. Progress Note SUBJECTIVE: Patient was seen and examined this morning. There have been no adverse events reported overnight. Patient is currently planned to have WIN completed tomorrow at 2pm. Patient denies any new complaints. She does have some left sided pain however this has improved since yesterday. She denies any chest pain or shortness of breath OBJECTIVE PHYSICAL EXAMINATION: VITAL SIGNS: Please see below. GENERAL: Awake, alert, and oriented. Appears in no acute distress. Sitting up in bed comfortably. HEENT: Atraumatic, normocephalic. Eyes are nonicteric. Trachea is midline. Mucous membranes are pink and moist CARDIOVASCULAR: Normal S1, S2. Regular rate and rhythm. No clicks rubs or murm urs RESPIRATORY: Clear vesicular breath sounds bilaterally. No wheezes, rhonchi, or rales. Symmetric chest expansion. Good respiratory effort. ABDOMINAL: Soft, nondistended. mild tenderness of the left upper quadrant. No rebound tenderness or guarding. Normoactive bowel sounds EXTREMITIES: No edema. Full and equal pulses in bilateral upper and lower extremities NEUROLOGICAL: No focal neurological deficits PSYCHOLOGICAL: Mood and affect appear appropriate LABORATORY DATA, IMAGING STUDIES, MICROBIOLOGY: Please see below. Echocardiogram: Positive bubble study for detection of intracardiac shunting from right heart to left heart at the level of the interarterial septum suspicious for interarterial septal aneurysm DVT prophylaxis ordered?: Mechanical ASSESSMENT AND PLAN: Patient is a 30 year old female with a past medical history of ISRAEL positive questionable SLE, who presented to [facility] with intractable abdominal pain. CT of the abdomen and pelvis demonstrated free fluid in the pel vis suggesting a possible ruptured ovarian cyst/follicle. Additionally, imaging demonstrated two hypodense splenic lesions consistent with splenic infarct PROBLEMS: 1. Abdominal Pain -Patient presented with right sided abdominal pain. Imaging demonstrating free fluid in the pelvis suggesting a right ruptured ovarian cyst/follicle. Additionally, patient had two hypodense splenic lesions consistent with a splenic infarct -Patient abdominal pain has improved. She states that she feels well today. Her abdominal pain may have been secondary to ruptured ovarian cyst as it was primarily right sided however, may also have been 2/2 to abdominal serositis given her history of Lupus -Continue with pain medications prn 2. Splenic Infarction -Patient has CT imaging consistent with possible splenic infarction. At this point the etiology is unknown. DDX includes cardioembolic source vs hyper coagulopathy such as antiphospholipid antibody syndrome, SLE, or inflammatory process. -She states that she has a history of SLE however she states that she has only ever had a positive ISRAEL and all other testing was negative. If true, unlikely that she has lupus as 15-20% of the general population will have positive ISRAEL. She did follow with a Electric Repair Supervisor in [place] who started her on Plaquenil due to fatigue. However this was discontinued in a year as her fatigue did not improve and she had medication side effects. She also has a history of hypothyroidism from Rosendo and Raynaud. Aut oimmune/hypercoagulopathy is possible. -TTE demonstrated a positive bubble study suggesting a interarterial sepal aneurysm/shunt. -Case was discussed with Rheumatology who agree that her history can be suggestive of Lupus. Recommendations for additional blood work to look for both Lupus and antiphospholipid antibody syndrome. These tests would have to be completed off of anticoagulation. Patient will follow-up in Rheum after discharge -CT angio of the abdomen and pelvis demonstrating splenic infarct as previously demonstrated. No worsening of infarction or other areas of infarction -MRI brain negative for any acute or chronic process. -WIN planned for 09/26/2020 at 2pm. Patient is to be NPO after midnight -Continue Aspirin 3. 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 Unclear if her shunt is at all related to her splenic infarcts. Will obtain a WIN to further assess. Patient denies any history of arrhythmias or feelings of palpitations. -MRI brain negative for any acute findings -WIN planned tomorrow 09/26/2020 at 2pm 4. Hypothyroidism -Continue with Synthroid DISPOSITION: Patient has clinically improved. Awaiting WIN tomorrow. Anticipate discharge in 24-48 hours Attending Note: Patient seen and examined independently. Agree with resident's note. Case discussed extensively with rheumatology and cardiology, with recommendations for laboratory studies, WIN and outpatient follow up. VS, I&O, 24H, Fishbone Vital Signs/I&O Vital Signs Date Time Temp Pulse Resp B/P (MAP) Pulse Ox O2 Delivery O2 Flow Rate FiO2 09/25/20 09:00 98 Room Air 09/25/20 06:00 98.1 66 16 140/82 (101) I&O- Last 24 Hours up to 6 AM 09/25/20 05:59 Intake Total 1920 ml Output Total 2700 ml Balance -780 ml Laboratory Data 24H LABS Laboratory Tests 2 09/24/20 12:19: 09/25/20 06:09: Nucleated Red Blood Cells % (auto) 0.0, Anion Gap 6L, Glomerular Filtration Rate > 60.0, Calcium Level 8.7 CBC/BMP Laboratory Tests 09/25/20 06:09 ANGELIA CONKLIN DO Sep 25, 2020 11:50 MARIKA PARSONS MD Sep 28, 2020 06:40
[2020-09-25 14:00] VITALS: BP 144/85
[2020-09-25 21:00] VITALS: O2SAT 98
[2020-09-25 22:00] VITALS: BP 145/84
[2020-09-26] MEDS: LEVOTHYROXINE 25MCG TABLET (0.025MG) PO SCH (05:35)
[2020-09-26 06:00] VITALS: BP 133/81
[2020-09-26 07:08] LABS: HEMATOCRIT 38.3 % (36.0-47.0); HEMOGLOBIN 12.4 g/dl (12.0-15.5); MEAN CORPUSCULAR HEMOGLOBIN 30.2 pg (27.0-33.0); MEAN CORPUSCULAR HGB CONC 32.4 g/dl (32.0-36.5); MEAN CORPUSCULAR VOLUME 93.2 fl (80.0-96.0); PLATELET COUNT, AUTOMATED 304 10^3/uL (150-450); RED BLOOD COUNT 4.11 10^6/uL (4.00-5.40); WHITE BLOOD COUNT 7.7 10^3/uL (4.0-10.0)
[2020-09-26 07:32] LABS: BLOOD UREA NITROGEN 8 MG/DL (7-18); CALCIUM LEVEL 8.7 MG/DL (8.5-10.1); CARBON DIOXIDE LEVEL 28 MEQ/L (21-32); CHLORIDE LEVEL 108 MEQ/L (98-107); CREATININE FOR GFR 0.66 MG/DL (0.55-1.30); GLOMERULAR FILTRATION RATE > 60.0 (>60); GLUCOSE, FASTING 84 MG/DL (70-100); POTASSIUM SERUM 3.9 MEQ/L (3.5-5.1); SODIUM LEVEL 140 MEQ/L (136-145)
[2020-09-26] MEDS: ASPIRIN 81 MG ENTERIC TAB PO SCH (08:26)
[2020-09-26] MEDS: ACETAMINOPHEN 500 MG TAB PO SCH ×2 (08:26→15:28)
[2020-09-26 09:05] VITALS: O2SAT 98
[2020-09-26 13:07] LABS: ANA (HEP2) Negative (.); ANTI DS-DNA AB Negative (Negative); BETA-2 GLYCOPROTEIN I ABY IGA <9 (0-25); BETA-2 GLYCOPROTEIN I ABY IGG <9 (0-20); BETA-2 GLYCOPROTEIN I ABY IGM <9 (0-32); RNP ANTIBODY < 0.2 AI (0.0-0.9); SMITHS ANTIBODY < 0.2 AI (0.0-0.9)
[2020-09-26] MEDS ORDERED: LIDOCAINE VISCOUS 2% SOLN 15ML UDC As Ordered ONE (13:57)
[2020-09-26] MEDS ORDERED: MIDAZOLAM INJ 2MG/2ML VIAL (J2250 PER 1MG) As Ordered ONE (13:58)
[2020-09-26] MEDS ORDERED: CETACAINE SPRAY 5GM As Ordered ONE (14:00)
[2020-09-26] MEDS: MIDAZOLAM INJ 2MG/2ML VIAL (J2250 PER 1MG) IV PRN ×2 (14:26→14:29)
[2020-09-26 15:00] VITALS: BP 124/80
[2020-09-26] MEDS ORDERED: LIDOCAINE VISCOUS 2% SOLN 15ML UDC PO ONE (15:00)
[2020-09-26] MEDS ORDERED: MIDAZOLAM INJ 2MG/2ML VIAL (J2250 PER 1MG) IV ONE (15:00)
--- NOTE | 2020-09-26 18:12 | DS.PDOC ---
Discharge Summary General Date of Admission Sep 22, 2020 at 13:56 Date of Discharge 09/26/20 Attending Physician: MARIKA PARSONS MD Discharge Summary PROCEDURES PERFORMED DURING STAY: Transesophageal Echocardiogram ADMITTING DIAGNOSES: 1. Intractable Abdominal Pain 2. Splenic Infarct DISCHARGE DIAGNOSES: 1. Splenic Infarct 2. Patent Foramen Ovale w/ interatrial septal aneurysm COMPLICATIONS/CHIEF COMPLAINT: Intractable Pain,Splenic Infarct. HISTORY OF PRESENT ILLNESS: Patient is a 30 year old female with a past medical history significant for Rosendo thyroiditis and SLE who presented to the [facility] ER with intractable abdominal pain. At the time of presentation the patient had stated that her pain was right sided extending up to her shoulder however then developed into left sided abdominal pain. In the ER the patient received a CT abdomen and pelvis demonstrating free fluid in the pelvis suggesting a possible right sided ruptured ovarian cyst or follicle. Additionally the patient was found to have hypodense lesions in the spleen consistent with possible infarctio ns. The patient was subsequently admitted for intractable abdominal pain On further questioning, the patient stated that she has a history of Lupus although she is not on any medication. She stated that she originally had long time fatigue and had also started getting photosensitivity rashes and would get cold white fingers when going outside. She stated that her Mother and sister have a history of Lupus with her sister having Lupus Nephritis. 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 At the time she was started on Plaquenil. She remained on this medication for about 1 year. She did notice improvement in her fatigue however started to develop upper respiratory tract infections and was taken off Plaquenil by her [employer]. She was then told that they would just watch her. She states that she has not followed up with her [employer] in sometime. She denied any history of blood clots in herself or family members. She states that she has 2 children. She denies any history of miscarriages. She did have an ectopic . She does have a history of Rosendo thyroiditis but otherwise denied any autoimmune diseases. HOSPITAL COURSE: On admission the patients pain was managed. She received a work-up for the etiology of her splenic infarcts. A hypercoagulable workup was initiate as the patient had not been on or received any anticoagulation. Case was discussed with Rheumatology with recommendations to order additional blood work while inpatient to evaluate for possible Lupus vs phospholipid antibody s yndrome. Blood work was ordered and pending. Additionally, patient received a CTA of the abdomen/pelvis as recommended which demonstrated splenic infarcts. Attempt was made to obtain records from patients [employer] at [facility] however was unsuccessful. At the time Rheumatology recommended outpatient follow-up after discharge. The patient did receive a transthoracic echocardiogram to assess for possible cardioembolic source. Interestingly her TTE demonstrated a positive bubble study for detection of intracardiac shunting from right heart to left heart at the level of the interarterial septum. Due to this finding the patient was scheduled to have a transesophageal echocardiogram. A WIN demonstrated a large PFO (0.5mm) with interatrial septal aneurysm but no thrombi. An MRI was obtained to assess for other areas of infarction. The patients MRI was negative. Her only area of infarction was in the spleen. It would be unlikely that a PFO would be the cause of isolated splenic infarcts without infarctions in other areas. The patient was started on aspirin. At discharge the patient stated she had some mild pain in her left side. She was referred to Rheumatology for further evaluation of her previous Lupus diagnosis as she does have symptoms suggestive although she does not appear to meet diagnostic criteria. Additionally, the patient was referred to Cardiology for consultation on her PFO. Lastly the patient was recommended to follow-up with her PCP for follow-up with her hypercoagulability work-up. She may benefit from a Hematology referral DISCHARGE MEDICATIONS: Please see below. ALLERGIES: Please see below. PHYSICAL EXAMINATION ON DISCHARGE: VITAL SIGNS: Please see below. GENERAL: Awake, alert, and oriented. Appears in no acute distress. Sitting up in bed comfortably. HEENT: Atraumatic, normocephalic. Eyes are nonicteric. Trachea is midline. Mucous membranes are pink and moist CARDIOVASCULAR: Normal S1, S2. Regular rate and rhythm. No clicks rubs or murmurs RESPIRATORY: Clear vesicular breath sounds bilaterally. No wheezes, rhonchi, or rales. Symmetric chest expansion. Good respiratory effort. ABDOMINAL: Soft, nondistended. mild tenderness of the left upper quadrant. No rebound tenderness or guarding. Normoactive bowel sounds EXTREMITIES: No edema. Full and equal pulses in bilateral upper and lower extremities NEUROLOGICAL: No focal neurological deficits PSYCHOLOGICAL: Mood and affect appear appropriate LABORATORY DATA: Please see below. IMAGING: ADDENDUM: There are no inflammatory changes or adenopathy about the cecum. No definite visualized appendix. The complex low-density right ovary is immediately adjacent to the cecum. This was discussed by phone with Dr. Yen at 9:12 a.m. <Electronically signed by Ranjit Walker > 09/22/20919 DD: Ranjit Walker MD 09/22/20917 DT: GISELLE 09/22/20919 DS: REAL 09/22/2091709/22/20917 [~ rep ct labl] INDICATION: abd pain. COMPARISON: None. TECHNIQUE: Bolus 100 mL Isovue 370 scanning through the abdomen and pelvis with coronal and sagittal reconstructions. FINDINGS: CT abdomen: There is calcified granuloma in the lateral basal segment of the left lower lobe. Minor dependent atelectatic changes are seen without effusion or mass heart is not enlarged there is no pericardial thickening or effusion. No hiatal hernia. See no hepatosplenomegaly the spleen shows 2 wedges of hypodensity within intervening normal tissue. There is no ascites or perisplenic hematoma. No history of trauma. Gallbladder is surgically absent. Pancreas was unremarkable. The aorta is without aneurysm. No periaortic or other retroperitoneal lymphadenopathy seen small bowel loops and colon in the abdomen proper were unremarkable. Kidneys show symmetric enhancement and no mass, stone, or hydronephrosis. There is a interpolar left renal cyst peripherally. Lung window review of all CT slices in the abdomen and pelvis shows no free air perforation. Bone windows show lumbar and thoracic spine with no compression deformities or destructive lesions a few small marginal osteophytes and lower thoracic levels are normal in this age group. Visualized ribs are intact CT pelvis: Sacrum, SI joints, iliac bones, hips and acetabulae show no fracture or destructive lesion. There is some minor degenerative changes did fear left SI joint. Abdominal and pelvic portions of colon show scattered stool and gas without colitis or diverticulitis. A trace amount of free fluid in the right deep pelvis adjacent to the sigmoid. Small bowel loops are fluid-filled but not abnormally dilated. There are no inflammatory changes in the mesentery. Uterus is absent the vaginal cuff intact. The right ovary shows an 18 mm dominant follicle and low-density throughout. I do not see a solid adnexal mass. No ventral or inguinal hernia, inguinal or pelvic lymphadenopathy identified. IMPRESSION: 1. Small amount of free fluid in the deep pelvis adjacent to the sigmoid and the deep and inferior to the right ovary which has low density throughout in a dominant follicle 18 mm. I could not exclude ruptured ovarian cyst or follicle. Patient is status post hysterectomy. 2. Multiple low-density wedge-shaped areas in the spleen with normal intervening enhancing parenchyma most consistent with splenic infarcts. There is no upper abdominal ascites. Liver unremarkable. 3. Prior cholecystectomy. Small left renal cyst. No other significant finding. <Electronically signed by Ranjit Walker > 09/22/20 0838 In the right ovary. INDICATION: right pain Ct ?hemor cyst. COMPARISON: Comparison is made with today's CT study.. TECHNIQUE: Transabdominal and transvaginal scanning were performed. FINDINGS: The uterus is surgically absent. A small right-sided ureterocele is noted incidentally in the urinary bladder. This corresponds to the CT. No free fluid is seen in the cul-de-sac.. The right ovary has dimensions of 2.9 x 2.2 x 2.8 cm. It's Doppler flow is normal with a resistive index of 0.38. There is a 1.9 cm hypoechoic cyst The left ovary dimensions are normal as well at 2.3 x 2.1 x 1.6 cm. It's Doppler flow was normal with resistive index of 0.57. IMPRESSION: Incidental small right ureterocele in the urinary bladder. 1.9 cm hypoechoic follicle cyst right ovary. Normal left ovary. No free fluid. Uterus surgically absent. . INDICATION: eval dvt. COMPARISON: None. TECHNIQUE: Bilateral lower extremity duplex venous ultrasound. FINDINGS: The deep veins are anechoic and fully compressible from the groin to the poplite al fossa in the left and right lower extremity. Color flow imaging is homogeneous. Spectral Doppler interrogation demonstrates intact respiratory variation in flow and normal manual augmentation of flow. There is no evidence of deep vein thrombosis. IMPRESSION: Negative bilateral lower extremity duplex venous ultrasound. No evidence of deep vein thrombosis. PROCEDURE INFORMATION: Exam: MR Head Without Contrast Exam date and time: 09/24/2020 5:52 PM Age: 30 years old Clinical indication: Pain; Headache; Cluster; Additional info: Eval infarcts TECHNIQUE: Imaging protocol: MR of the head without contrast. COMPARISON: No relevant prior studies available. FINDINGS: Brain: No intracranial hemorrhage or extra-axial fluid collection. No evidence of mass effect or midline shift. No restricted diffusion to suggest acute infarct. Cerebral ventricles: Ventricles, cisterns, and sulci are normal. Bones/joints: Unremarkable. Paranasal sinuses: Left maxillary sinus retention cyst. Mastoid air cells: No mastoid effusion. Orbits: Unremarkable. Soft tissues: Unremarkable. IMPRESSION: No acute intracranial findings. Electronically signed by: Zen Mccormack On 09/24/2020 18:17:58 PM INDICATION: Splenic infarcts COMPARISON: CT abdomen pelvis 09/22/2012 TECHNIQUE: CT angiogram of the abdomen and pelvis was performed with intravenous administration of 100 cc of Isovue 370, without oral contrast. 3D MIP reconstruction images performed. FINDINGS: Abdominal aorta: The abdominal aorta shows no evidence of an aneurysm or dissection. 3D reconstruction confirms. Origin of the celiac axis is without stenosis or aneurysm see no vessel cut off or aneurysm involving the splenic artery or the hepatic artery. The SMA and proximal branches are unremarkable. The right and left main renal arteries show no stenosis or aneurysm. Lung bases: Showed an old calcified granuloma in the left lower lobe but remain clear Liver: Normal Gallbladder: Surgically absent Spleen: Earlier arterial phase injection shows the 2 areas of splenic infarction to less advantage than the previous study but there are no new areas. Infarcts do not appear to have extended further in the spleen size is unchanged no adjacent ascites, subcapsular hematoma or other finding in the spleen. Adrenals: Normal. Pancreas: Normal. Kidneys: Again show a small cyst interpolar region laterally on the left. Unchanged kidneys and collecting systems. Small and large bowel: No hiatal hernia retained food is distends the stomach without wall thickening or mass small bowel loops and colon show no acute finding. Free fluid: None. Adenopathy: None. Appendix: Without inflammatory change about the cecum. Pelvis: Status post hysterectomy. I do not see free pelvic fluid on today's study nor evidence for ovarian cyst. No pelvic adenopathy. Bladder without mass wall thickening or stone. No ventral or inguinal hernia. Osseous structures: Unremarkable. IMPRESSION: There is no CT angiographic evidence of aortic aneurysm or dissection. The celiac axis and splenic artery are unremarkable and without vessel cut off, aneurysm or other acute finding. Likewise the SMA and renal arteries were under remarkable. Trace pelvic fluid on the previous study has resolved and there is no visible ovarian cyst. Kidneys ureters and bladder without stone mass or hydronephrosis. Bowel loops are unremarkable. No free air. No change in the size of the spleen and there are 2 edge shaped splenic infarcts again seen. These are less obvious than the previous study because of the earlier phase of contrast injection when filming the angiogram. Nevertheless no interval change of the spleen or or new infarcts. PROGNOSIS: Good ACTIVITY: [As tolerated]. DIET: as tolerated DISCHARGE PLAN: Patient is to be discharged home. She is to follow-up with Rheumatology regarding questionable SLE diagnosis. She is to follow-up with Dr. Goldstein of Cardiology for PFO. She is to follow-up with her PCP in 3-4 days for her hypercoagulable workup. Patient was instructed to continue aspirin daily. She will follow recommendations of her PCP and Cardiology in regards to discontinuation of aspirin or initiation of further anticoagulation DISPOSITION: 01 Home, Self-Care. DISCHARGE CONDITION: [Stable]. TIME SPENT ON DISCHARGE: Greater than 40 minutes. Attending Note: Patient seen and examined independently. Agree with resident's note. Case discussed again with cardiology with findings on WIN. Recs for outpatient follow up, starting aspirin 81mg, outpatient follow up with rheumatology. Vital Signs/I&Os Vital Signs Date Time Temp Pulse Resp B/P (MAP) Pulse Ox O2 Delivery O2 Flow Rate FiO2 09/26/20 15:00 99.8 77 16 124/80 (95) 96 Room Air 09/26/20 14:41 3 I&O- Last 24 Hours up to 6 AM 09/26/20 05:59 Intake Total 1520 ml Output Total 2650 ml Balance -1130 ml Laboratory Data Labs 24H Laboratory Tests 2 09/26/20 06:46: Nucleated Red Blood Cells % (auto) 0.0, Anion Gap 4L, Glomerular Filtration Rate > 60.0, Calcium Level 8.7 CBC/BMP Laboratory Tests 09/26/20 06:46 Discharge Medications Scheduled Aspirin (Aspirin EC) 81 Mg Tablet., 81 MG PO DAILY Levothyroxine Sodium (Levothyroxine Sodium) 25 Mcg Tablet, 25 MCG PO DAILY, (Reported) Allergies Coded Allergies: Sulfa (Sulfonamide Antibiotics) (Verified Allergy, Intermediate, CHILD, 07/18/20) anaph adhesive (Verified Adverse Reaction, Mild, SURGICAL GLUE- ITCHING, 09/24/20) ANGELIA CONKLIN DO Sep 26, 2020 18:12 MARIKA PARSONS MD Sep 28, 2020 07:06
--- NOTE | 2020-09-29 13:22 | T-ECHO ---
DATE: 09/26/2020 REFERRING PHYSICIAN: Dominic Anders M.D. REASON FOR WIN: Atrial septal defect. PREPROCEDURE DIAGNOSIS: Atrial septal defect. POSTPROCEDURE DIAGNOSIS: Atrial septal defect (patent foramen ovale with interatrial septal aneurysm) with positive bubble study for [id number] interatrial shunting. PROCEDURE PERFORMED BY: Cricket Goldstein M.D. CROZE MACHINE OPERATOR: None. PROCEDURE PERFORMED: Transesophageal echocardiogram with saline bubble study. INTRAVENOUS (IV) SEDATION: Midazolam 4 mg IV. DESCRIPTION OF PROCEDURE: Patient received viscous lidocaine to gargle and swallow. She received a total of midazolam 5 mg IV for sedation. The patient tolerated the procedure well without any immediate complications. Rhythm was sinus. Esophageal intubation was accomplished without difficulty using a Chao 3D transesophageal echocardiogram probe. The left ventricle appeared normal in size and systolic function and without regional wall motion abnormalities. Left ventricle ejection fraction was 65% by visual estimate. Right ventricle appeared normal in size and systolic function. Atria did not appear to be enlarged. Pulmonary venous inflow connections to the left atrium were anatomically normal. Pulmonary venous flow in the left upper pulmonary vein by pulse wave Doppler was normal. The interatrial septum demonstrated a small interatrial septal aneurysm measuring 1.05 cm bulging from midline towards the right atrium. A patent foramen ovale was visible and at rest, color flow Doppler showed shunting via the PFO from the left atrium to the right atrium. Saline bubble study x1 with Valsalva maneuver release was performed, which demonstrated a large amount of bubble shunting across the patent foramen ovale from the right atrium into the left atrium via the PFO. The bubble study was performed using 8 mL of normal saline combined with 1 mL of the patients own blood withdrawn from the peripheral saline lock, as well as 1 mL of air, which was then agitated back and forth between two 10 mL syringes via a three-way stopcock. All the cardiac valves were structurally and functionally normal. No pericardial effusion. Distal aortic arch and descending thoracic aorta were normal. CONCLUSIONS: 1. Large patent foramen ovale (0.5 cm) with left atrium to right atrium shunting at rest. Positive saline bubble study of a large amount of contrast with Valsalva maneuver release from the right atrium to the left atrium via the patent foramen ovale (PFO). 2. Interatrial septal aneurysm without fenestrations or atrial septal defect. No intracardiac thrombus. 3. Normal left ventricle size and systolic function. Normal left ventricular (LV) systolic function. Left ventricular ejection fraction (LVEF) 65% by visual estimate. 4. Otherwise normal appearing transesophageal echocardiogram findings. ADDITIONAL COMMENTS/RECOMMENDATIONS: In the absence of infarcts to other organs other than the spleen, suggest addition of enteric coated aspirin 81 mg daily if no contraindication. This was discussed via [place] with Dr. Anders who will be referring the patient to me for further evaluation/management as an outpatient. SHERRYD
[2020-09-29 18:26] LABS: ANCA-ATYPICAL <1:20 titer (Neg:<1:20); ANTI THROMBIN 3 ANTIGEN IMMUNO 92 % (72-124); ANTI THROMBIN 3 FUNCT ACTIVITY 102 % (75-135); ANTINUCLEAR ANTIBODIES DIRECT Negative (Negative); CARDIOLIPIN IGA ANTIBODY <9 APL U/mL (0-11); CARDIOLIPIN IGG ANTIBODY 12 GPL U/mL (0-14); CARDIOLIPIN IGM ANTIBODY 9 MPL U/mL (0-12); CYTOPLASMIC NEUTROP AB ANCA-C <1:20 titer (Neg:<1:20); HOMOCYST(E)INE SERUM 6.2 umol/L (0.0-14.5); PERINUCLEAR AB ANCA-P <1:20 titer (Neg:<1:20); PROTEIN C ANTIGEN 107 % (60-150); PROTEIN S ANTIGEN FREE 128 % (57-157); PROTEIN S ANTIGEN TOTAL 98 % (60-150); SJOGREN'S ANTI SS-A <0.2 AI (0.0-0.9); SJOGREN'S ANTI SS-B <0.2 AI (0.0-0.9)
== END 2020-09-26 17:01 | disposition home or self-care (01) | DRG 663 ==
LOC: M ED 05:03 → M ED INP 13:56 → ENRESERV 16:09 → M MSPAV 17:24
PROVIDERS: ADMIT Internal Medicine; ATTEND Internal Medicine
PROC: B246ZZ4 Ultrasonography of Right and Left Heart, Transesophageal (ICD-10-PCS; principal; 2020-09-26 14:00)
DX: D73.5 Infarction of spleen (principal); I25.3 Aneurysm of heart; M32.9 Systemic lupus erythematosus, unspecified; Q21.1 Atrial septal defect; E06.3 Autoimmune thyroiditis; E28.2 Polycystic ovarian syndrome; E03.9 Hypothyroidism, unspecified; N83.01 Follicular cyst of right ovary; Z88.2 Allergy status to sulfonamides; Z91.040 Latex allergy status; Z91.048 Other nonmedicinal substance allergy status; Z90.49 Acquired absence of other specified parts of digestive tract; Z90.710 Acquired absence of both cervix and uterus; Z79.899 Other long term (current) drug therapy; Z20.828 Contact with and (suspected) exposure to other viral communicable diseases

== ENCOUNTER → 2020-10-01 | Outpatient (CLI) | payer OTHER ==
[~2020-10-01] MED LIST changes: +ASPI81TAEC PO
--- NOTE | 2020-10-01 17:23 | REP ---
INDICATION: GENERALIZED HYPERHIDROSIS COMPARISON: None. TECHNIQUE: PA and lateral. FINDINGS: 7mm nodule at the left base. Mediastinum and cardiac silhouette are normal. Lung adler are otherwise clear. No effusion. No consolidation. No pneumothorax. Skeletal structures intact.. IMPRESSION: 7 mm nodule in the left lower lobe. Chest CT with contrast is recommended for further investigation. <Electronically signed by Tom Morales > 10/01/20 [id number]
== END ==
LOC: M RAD 15:35
PROVIDERS: ATTEND Internal Medicine
DX: R61 Generalized hyperhidrosis (principal); R91.1 Solitary pulmonary nodule

== ENCOUNTER → 2020-10-01 | Outpatient (REF) | payer OTHER ==
[2020-10-01 16:59] LABS: APPEARANCE, URINE CLEAR (CLEAR); BACTERIA, URINE AUTO NEGATIVE (NEGATIVE); BILIRUBIN, URINE AUTO NEGATIVE (NEGATIVE); BLOOD, URINE BLOOD NEGATIVE (NEGATIVE); COLOR, URINE COLORLESS (YELLOW); GLUCOSE, URINE (UA) AUTO NEGATIVE (NEGATIVE); KETONE, URINE AUTO NEGATIVE (NEGATIVE); LEUKOCYTE ESTERASE, URINE AUTO NEGATIVE (NEGATIVE); MUCUS, URINE SMALL (NEGATIVE); NITRITE, URINE AUTO NEGATIVE (NEGATIVE); PROTEIN, URINE AUTO NEGATIVE (NEGATIVE); RBC, URINE AUTO 0 /HPF (0-3); SPECIFIC GRAVITY URINE AUTO 1.003 (1.002-1.035); SQUAMOUS EPITHELIAL CELL UR AU 1 /HPF (0-6); UROBILINOGEN, URINE AUTO 0.2 mg/dL (0.0-2.0); WBC, URINE AUTO 0 /HPF (0-3)
[2020-10-01 17:10] LABS: CREATININE,RANDOM URINE 16.7 MG/DL; TOTAL PROTEIN,RANDOM URINE < 5.0 MG/DL (0.0-12.0)
[2020-10-01 17:11] LABS: TOTAL PROTEIN 7.9 GM/DL (6.4-8.2)
[2020-10-01 17:22] LABS: ALBUMIN 4.1 GM/DL (3.2-5.2); ALT/SGPT 31 U/L (12-78); BILIRUBIN,TOTAL 0.3 MG/DL (0.2-1.0); BLOOD UREA NITROGEN 9 MG/DL (7-18); C REACTIVE PROTEIN QUANTITATIV 0.82 MG/DL (0.00-0.30); CALCIUM LEVEL 9.3 MG/DL (8.5-10.1); CARBON DIOXIDE LEVEL 30 MEQ/L (21-32); CHLORIDE LEVEL 103 MEQ/L (98-107); CREATININE FOR GFR 0.69 MG/DL (0.55-1.30); GLOMERULAR FILTRATION RATE > 60.0 (>60); GLUCOSE, FASTING 105 MG/DL (70-100); IMMUNOGLOBULIN G 1230 MG/DL (681-1648); POTASSIUM SERUM 3.7 MEQ/L (3.5-5.1); RHEUMATOID FACTOR QUANT < 10.0 IU/ML (<15.0); SODIUM LEVEL 138 MEQ/L (136-145); TOTAL PROTEIN 7.8 GM/DL (6.4-8.2)
[2020-10-01 17:33] LABS: HEPATITIS B SURFACE ANTIGEN NEGATIVE (NEGATIVE)
[2020-10-01 18:02] LABS: HEPATITIS C VIRUS ABY INDEX 0.1 INDEX (<0.8)
[2020-10-02 15:43] LABS: ALBUMIN % 59.5 % (55.8-66.1); ALPHA-1-GLOBULIN % 4.7 % (2.9-4.9); ALPHA-1-GLOBULINS 0.37 GM/DL (0.17-0.41); ALPHA-2-GLOBULINS 0.74 GM/DL (0.42-0.99); ALPHA-2-GLOBULINS % 9.4 % (7.1-11.8); BETA-1-GLOBULINS 0.53 GM/DL (0.28-0.60); BETA-1-GLOBULINS % 6.7 % (4.7-7.2); BETA-2-GLOBULINS % 4.7 % (3.2-6.5)
[2020-10-02 15:44] LABS: BETA-2-GLOBULINS 0.37 GM/DL (0.19-0.55); GAMMA GLOBULINS 1.19 GM/DL (0.65-1.58)
[2020-10-07 15:08] LABS: ANGIOTENSIN 1 CONVERTING ENZYM 20 U/L (14-82); CYCLIC CITRULLINATED PEPTIDE 5 units (0-19); HEPATITIS B CORE ANTIBODY IGG Negative (Negative); HLA-B27 Negative (.)
== END ==
LOC: M SFHCRHEU 14:49
PROVIDERS: ATTEND Internal Medicine
DX: M32.9 Systemic lupus erythematosus, unspecified (principal); M25.50 Pain in unspecified joint; R61 Generalized hyperhidrosis

== ENCOUNTER → 2020-10-14 | Outpatient (CLI) | payer OTHER ==
[~2020-10-14] MED LIST changes: +ISOVUE-370 76% 100ML VIAL As Ordered ONE
--- NOTE | 2020-10-14 10:41 | REP ---
INDICATION: NIGHT SWEATS COMPARISON: None TECHNIQUE: Axial contrast enhanced images from the thoracic inlet to the upper abdomen with coronal and sagittal reformations using 75 ml Isovue [address] intravenous [address] examination was performed using the following dose reduction techniques: Automated exposure control, adjustment of mA and/or kv according to the patient's size, and use of iterative reconstruction technique. FINDINGS: Scattered bilateral centrally calcified nodules and calcified mediastinal/hilar lymph nodes are consistent with prior granulomatous disease. No acute consolidation, suspicious nodule, or mass lesion is appreciated. No pleural effusion. No pneumothorax. Tracheobronchial tree is patent and without bronchiectasis. No acute adenopathy. Thoracic aorta, pulmonary vasculature, and heart/pericardium are normal. Limited upper abdomen demonstrates hepatomegaly and hepatosteatosis along with normal bilateral adrenal glands and evidence for prior cholecystectomy. Musculoskeletal structures are intact and within normal limits. IMPRESSION: 1. Evidence for prior granulomatous disease. 2. No acute mediastinal or pleuroparenchymal process. <Electronically signed by Tom Morales > 10/14/20 1038
== END ==
LOC: M RAD 10:05
PROVIDERS: ATTEND Internal Medicine
DX: R61 Generalized hyperhidrosis (principal)
CPT/HCPCS: 71260; Q9967

== ENCOUNTER 2020-12-18 21:04 | Emergency (ER) | payer OTHER ==
[~2020-12-18] VITALS: Ht 162.6 cm; Wt 101.7 kg
[~2020-12-18 21:04] MED LIST changes: -ISOVUE-370 76% 100ML VIAL As Ordered ONE
[2020-12-18 21:05] VITALS: BP 157/77
--- OUTSIDE RECORDS SUMMARY | 2020-12-18 21:11 | CCD | Continuity of Care Document ---
Author Author Eryn PARKER M.D. Organization Unknown Address [address] [place] [id number] Phone [phone] Care Team Providers Care Tester [employer] Name Role Phone Eryn Martinez N.P. AUTM Zabrina Liu AUTM [phone] Problems Description No Information Available Social History Type Date Description Comments Sex Unknown Allergies, Adverse Reactions, Alerts Description No Information Available Medications Active Medications SIG Qnty Indications Ordering Provide r Date Topamax 25mg Tablets 1 tab nightly x 1 week, then 1 tab twice day x 1 week, then 1 tab morning and 2 tabs nightly 42tabs Emilee Parker M.D. 12/09/2020 Topamax 50mg Tablets 1 by mouth twice a day 60tabs Emilee Parker M.D. 12/09/2020 Immunizations Description No Information Available Vital Signs Description No Information Available Results Description No Information Available Procedures Description No Information Available Medical Devices Description No Information Available Encounters Description No Information Available Assessments Description No Information Available Plan of Treatment Future Appointment(s):* 02/06/2021 8:00 am - Emilee Parker M.D. at Main office - [place] Functional Status Description No Information Available Mental Status Description No Information Available Referrals Description No Information Available
--- OUTSIDE RECORDS SUMMARY | 2020-12-18 21:11 | CCD ---
Author Author [facility] Organization [facility] Address Unknown Phone Unavailable Care Team Providers Care Specification Manager Name Role Phone Brandon Desai Unavailable PROBLEMS Type Condition ICD9-CM Code [id number] Code Onset Dates Condition S tatus SNOMED Code Notes Problem Systemic lupus erythematosus , unspecified SLE type, unspecified organ involvement status M32.9 Active 49526816 Problem Chronic bladder pain R39.82 Active [id number] Problem PCOS (polycystic ovarian syndrome) E28.2 Activ e [id number] ALLERGIES Allergen (clinical drug ingredient) Drug/Non Drug Allergy do cumented on EMR Reaction Allergy Type Onset Date Status Sulfacet-R Anaphylaxis Drug Allergy Active adhesives rash Non Drug Allergy 08/15/2020 Active nickel Hives Non Drug Allergy Active ENCOUNTERS from 1988 to 2020-12-13 Encounter Location Date Provider Diagnosis [facility] Urology [id number] [place] [address] [place] [address] Nov Brandon Desai Dysuria R30.0 and Chronic bladder pain R 39.82 IMMUNIZATIONS No Information SOCIAL HISTORY Tobacco Use: Social History Observation Description Date Details (start date - stop date) Never Smoker Sex Assigned At : Social History Observation Description Sex Assigned At Unknown Language: Question Answer Notes Languages spoken: [place] Rastafarian: Question Answer Notes Rastafarian No quaker beliefs that would impact health care. Alcohol Screening: Question Answer Notes Did you have a drink containing alcohol in the past year? Ye s Points 1 Interpretation Negative How often did you have six or more drinks on one occas ion in the past year? Never (0 points) How many drinks did you have on a typica l day when you were drinking in the past year? 1 or 2 (0 points) How often did you have a drink containing alcohol in t he past year? Monthly or less (1 point) Tobacco Use: Question Answer Notes Are you a: never smoker REASON FOR REFERRAL No Information VITAL SIGNS Weight 221.6 lbs Nov, Height 64 in Nov, BMI 38.03 kg/m2 Nov, Heart Rate 71 /min Nov, Respiratory Rate 18 /min Nov, Oximetry 99 Nov, Blood pressure systolic 128 mm Hg Nov, Blood pressure diastolic 72 mm Hg Nov, MEDICATIONS Medication SIG (Take, Route, Frequency, Duration) Notes Start Da te End Date Status Phentermine-Topiramate 11.25-69 MG 1 capsule Orally Once a day Not-Taking Levothyroxine Sodium 25 MCG 1 tablet in the morning on an empty stomach Oral Once a day Not-Taking Multivitamin - 1 tablet Orally Once a day Active SM Aspirin Adult Low Strength 81 MG Oral for 30 Active PROCEDURES No Information RESULTS No Results REASON FOR VISIT CHRONIC CYSTITIS MEDICAL (GENERAL) HISTORY Type Description Date Medical History lupus Medical History hashimotos Medical History PCOS Medical History hypothyroid Medical History chronic cystitis Medical History blood clot that went to spleen Surgical History RALH, right salpingectomy, cystoscopy Surgical History T&A 1999 Surgical History plantars wart removed under anesthesia 2 002 Surgical History Left salpingectomy- ruptured ectopic 201 1 Surgical History cholecystectomy 2018 Hospitalization History 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 She'll be scheduled for cystoscopy and hydrodistention Nov, Chronic bladder pain (ICD-10 - R39.82) PLAN OF TREATMENT Treatment Notes Assessment Notes Clinical Notes Dysuria Patient was given an IC diet. She'll be scheduled for cystoscopy and hydrodistention Next Appt Details next available appointment for cystoscop y Reason:probable IC Provider Name:Brandon Azul Desai, 2021-01-07 09:00:00 AM, [address], [place], [address], Follow Up:next available appointment for cystoscopyprobable IC Insurance Providers Payer Name Payer Address Payer Phone Insured Name Patient Relati onship to Insured Coverage Start Date Coverage End Date [facility] [employer] [facility] [employer] [address] [facility] [id number] AMALIA DUNN LM self
--- OUTSIDE RECORDS SUMMARY | 2020-12-18 21:12 | CCD | Continuity of Care Document ---
Author Organization Unknown Address Unknown Phone Unavailable Care Team Providers Care Sales And Merchandising Representative Name Role Phone Dudley Murillo DO AUTM [phone] Zabrina Liu AUTM [phone] Miranda Castelan MD AUTM [phone] Problems Active Problems Provider Date Chronic nonalcoholic liver disease Cricket Goldstein MD Onse t: 10/24/2020 Dietary management surveillance Cricket Goldstein MD Onset: 10/24/2020 Obesity Cricket Goldstein MD Onset: 10/24/2020 Ostium secundum type atrial septal defect Cricket Goldstein MD Onset: 10/24/2020 Social History Type Date Description Comments Sex Unknown ETOH Use Rarely consumes alcohol Tobacco Use Start: Unknown Patient has never smoked Smoking Status Reviewed: 10/24/20 Patient has never smoked Exercise Type/Frequency Walks daily 45 minut es at a time Exercise Type/Frequency Yoga Exercise Limitations None Allergies, Adverse Reactions, Alerts Active Allergies Reaction Severity Comments Date Sulfa 10/24/2020 Medications Active Medications SIG Qnty Indications Ordering Provide r Date Levothyroxine Sodium 25mcg Tablets 1 by mouth every day Unknown 10/23/[address] 1 by mouth every day Unknown 10/23/2020 Immunizations Description No Information Available Vital Signs Date Vital Result Comment 10/24/2020 9:02am Weight 218.00 lb Home Weight 213lb home weight Height 64 inches 5'4" BMI (Body Mass Index) 37.4 kg/m2 Heart Rate 70 /min BP Systolic Sitting 130 mmHg Omron, large cuff/Ra BP Diastolic Sitting 93 mmHg Omron, large cuff/R a Results Test Acquired Date Facility Test Result H/L Range Note CMP 10/01/2020 [facility] - not interfaced (151)- - Albumin Serum/Plasma 4.1 Alt - SGPT 31 Calcium Ser/Plasma Mass/Vol 9.3 Carbon Dioxide Ser/Plasm 30 Chloride Serum/Plasma 103 Alkaline Phosphatase 79 Potassium 3.7 Protein Total 7.8 Sodium 138 Ast - Sgot 15 BUN - Urea Nitrogen 9 Glucose 105 83-110 Creatinine For GFR 0.69 CBC without Differential 09/26/2020 [facility] - not inter faced (315)- - White Blood Count 7.7 5.0-10.0 Red Blood Count 4.11 4.00-5.40 Platelets 304 172-450 Hemoglobin 12.4 Hematocrit 38.3 Procedures Date Code Description Status 10/24/2020 65987 ECG 12-Lead Completed Medical Devices Description No Information Available Encounters Type Date Location Provider Dx Diagnosis Office Visit 10/24/2020 8:45a Main Office Cricket Goldstein MD Q21.1 Atrial septal defect E66.09 Other obesity due to excess calories K76.0 Fatty (change of) liver, not elsewhere classified Z71.3 Dietary counseling and surve illance Assessments Date Code Description Provider 10/24/2020 Q21.1 Atrial septal defect Cricket spivey MD 10/24/2020 E66.09 Other obesity due to excess paulino christal Cricket Goldstein MD 10/24/2020 K76.0 Fatty (change of) liver, not els ewhere classified Cricket Goldstein MD 10/24/2020 Z71.3 Dietary counseling and surveilla nce Cricket Goldstein MD Plan of Treatment 10/24/2020 - Cricket Goldstein MD* Q21.1 Atrial septal defect * E66.09 Other obesity due to excess calories * K76.0 Fatty (change of) liver, not elsewhere classified * Z71.3 Dietary counseling and surveillance * All * Follow up:* No specific arrangements were made for further cardiology follow-up. Functional Status Functional Condition Comment Date Status Independent with all ADL's Activ e Mental Status Description No Information Available Referrals Description No Information Available
--- OUTSIDE RECORDS SUMMARY | 2020-12-18 21:12 | CCD ---
Author Author [facility] Organization [facility] Address Unknown Phone Unavailable Care Team Providers Care Record Producer Name Role Phone Miranda Castelan Unavailable PROBLEMS Type Condition ICD9-CM Code QGA46-OH Code Onset Dates Condition S tatus SNOMED Code Notes Problem PCOS (polycystic ovarian syndrome) E28.2 Activ e [id number] Problem Systemic lupus erythematosus , unspecified SLE type, unspecified organ involvement status M32.9 Active [id number] ALLERGIES Allergen (clinical drug ingredient) Drug/Non Drug Allergy do cumented on EMR Reaction Allergy Type Onset Date Status Sulfacet-R Anaphylaxis Drug Allergy Active adhesives rash Non Drug Allergy 08/15/2020 Active ENCOUNTERS from 1988 to 2020-10-06 Encounter Location Date Provider Diagnosis [facility] Rheumatology [address] [place] [address] Sep, Miranda Castelan Systemic lupus erythematosus, unspecifie d SLE type, unspecified organ involvement status M32.9 ; Polyarthralgia M25.50 ; Night sweats R61 and Infarction of spleen D73.5 IMMUNIZATIONS No Information SOCIAL HISTORY Tobacco Use: Social History Observation Description Date Details (start date - stop date) Never Smoker Sex Assigned At : Social History Observation Description Sex Assigned At Unknown Alcohol Screening: Question Answer Notes Did you [...] FOR REFERRAL No Information VITAL SIGNS Weight 215.6 lbs Sep, Weight-kg 97.7 kg Sep, Height 64 in Sep, BMI 37.00 kg/m2 Sep, Heart Rate 97 /min Sep, Respiratory Rate 18 /min Sep, Temperature 97.8 degrees Fahrenheit Sep, Oximetry 98% Sep, Blood pressure systolic 132 mm Hg Sep, Blood pressure diastolic 70 mm Hg Sep, MEDICATIONS Medication SIG (Take, Route, Frequency, Duration) Notes Start Da te End Date Status SM Aspirin Adult Low Strength 81 MG Oral for 30 Active Levothyroxine Sodium 25 MCG 1 tablet in the morning on an empty stomach Oral Once a day Active Multivitamin - 1 tablet Orally Once a day Active Phentermine-Topiramate 11.25-69 MG 1 capsule Orally Once a day Not-Taking PROCEDURES No Information RESULTS Component Value Reference Range Comprehensive Metabolic Profile (CMP) Reviewed date:10/02/2020 14:20:51 Interpretation: Performing Lab:[facility] [address] [place] [address] , ,[place] [address] GLUCOSE, FASTING 105 70-100 BLOOD UREA NITROGEN 9 7-18 CREATININE FOR GFR 0.69 0.55-1.30 GLOMERULAR FILTRATION RATE > 60.0 >60 SODIUM LEVEL 138 136-145 POTASSIUM SERUM 3.7 3.5-5.1 CHLORIDE LEVEL 103 98-107 CARBON DIOXIDE LEVEL 30 21-32 CALCIUM LEVEL 9.3 8.5-10.1 AST/SGOT 15 7-37 ALT/SGPT 31 12-78 ALKALINE PHOSPHATASE 79 45-117 BILIRUBIN,TOTAL 0.3 0.2-1.0 TOTAL PROTEIN 7.8 6.4-8.2 ALBUMIN 4.1 3.2-5.2 ALBUMIN/GLOBULIN RATIO 1.1 1.2-2.2 C REACTIVE PROTEIN QUANTITATIV (At [facility] L ab) Reviewed date:10/02/2020 14:20:51 Interpretation: Performing Lab:[facility] [address] [facility] [address] , ,[facility]01 C REACTIVE PROTEIN QUANTITATIV 0.82 0.00-0.30 HEPATITIS B SURFACE ANTIGEN Reviewed date:10/02/2020 14:20:51 Interpretation: Performing Lab:[facility] [address] [facility] [address] , ,[place] [address] HEPATITIS B SURFACE ANTIGEN NEGATIVE NEGATIVE HEPATITIS C ANTIBODY INDEX Reviewed date:10/02/2020 14:20:51 Interpretation: Performing Lab:[facility] [address] [place] [address] , ,[place] [address] HEPATITIS C VIRUS RUSTY INDEX 0.1 <0.8 TOTAL PROTEIN,RANDOM URINE Reviewed date:10/02/2020 14:20:51 Interpretation: Performing Lab:[facility] [address] [place] [address] , ,[place] [address] TOTAL PROTEIN,RANDOM URINE < 5.0 0.0-12.0 UA URINALYSIS Reviewed date:10/02/2020 14:20:51 Interpretation: Performing Lab:[facility] [address] [facility] [address] , ,[place] [address] CREATININE,RANDOM URINE Reviewed date:10/02/2020 14:20:51 Interpretation: Performing Lab:[facility] [address] [facility] [address] , ,[place] [address] CREATININE,RANDOM URINE 16.7 IMMUNOGLOBULIN G,A,M Reviewed date:10/02/2020 14:20:51 Interpretation: Performing Lab:[facility] [address] [facility] [address] , ,[place] [address] IMMUNOGLOBULIN A 140.0 70-400 IMMUNOGLOBULIN G 1290 039-3133 IMMUNOGLOBULIN M 104.0 40-230 RHEUMATOID FACTOR QUANT Reviewed date:10/02/2020 14:20:51 Interpretation: Performing Lab:[facility] [address] [facility] [address] , ,[place] [address] RHEUMATOID FACTOR QUANT < 10.0 <15.0 Ser Prot Electro RFX ITS Reviewed date:10/03/2020 08:36:27 Interpretation: Performing Lab:[facility], [facility] [address] [facility] [id number] , ,[place] [address] ALBUMIN % 59.5 55.8-66.1 LISKN-9-UMDWQUHK % 4.7 2.9-4.9 RNFYK-6-CHXMSXAUH % 9.4 7.1-11.8 OOBP-2-JLXNFXWTO % 6.7 4.7-7.2 MUUS-4-CXTAIJZDZ % 4.7 3.2-6.5 GAMMA GLOBULIN % 15.0 11.1-18.8 ALBUMIN 4.70 3.29-5.55 OJPUT-6-FAHCMNRQR 0.37 0.17-0.41 KJUFR-2-KCVJIDNPA 0.74 0.42-0.99 CVDU-0-PWMUXRVDP 0.53 0.28-0.60 CFGC-5-LJWCLDPNK 0.37 0.19-0.55 GAMMA GLOBULINS 1.19 0.65-1.58 TOTAL PROTEIN 7.9 6.4-8.2 SPEP INTERPRETATION FOR RFX SEE COMMENT [facility] Chest, 2 view (PA\Lat) Reviewed date:10/03/2020 07:44:32 Interpretation: Performing Lab:[facility] [address]], ,[place] [address] REASON FOR VISIT Urgent per Flip/Zeynep MEDICAL (GENERAL) HISTORY Type Description Date Medical History lupus Medical History hashimotos Medical History PCOS Medical History hypothyroid Surgical History RALH, right salpingectomy, cystoscopy Surgical [...] Notes Treatment Notes Treatm ent Clinical Notes Sep, Systemic lupus erythematosus , unspecified SLE type, unspecified organ involvement status (ICD-10 - M32.9) Her previous history sounds consistent with mild lupus but currently her laboratory testing is all negative. I do see a lot of variability with the lab testing from lab to lab in this area so it's hard to know what to make of this. Unfortunate and somewhat unusual that she perceives she was having more infections on Plaquenil. This would be an extremely idiosyncratic side effect in relation to using this drug. Plaquenil typically does not promote increased susceptibility to infection. At this time, I think the main thing would be to determine if there is a medication that she could be treated with that will improve her joint pain and fatigue with a favorable safety and side effect profile. She will do some labs today and follow-up in a few weeks to review test results. Sep, Polyarthralgia (ICD-10 - M25.50) Her main symptom seems to be polyarthralgia, I will check and make sure she doesn't have rheumatoid arthritis or another autoimmune type of arthritis as opposed to SLE. Sep, Night sweats (ICD-10 - R61) She describes night sweats for the last 4-5 months. This can be a feature of autoimmune disease including SLE, vasculitis or less commonly RA. However, I think it would also be important to rule out the possibility of malignancy. She has already had a thorough abdominal/pelvic workup, I think it would be important to image the chest to make sure there are no unexpected findings. I will order a chest x-ray and a CT scan of the chest. 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 Her lab workup to date shows no evidence of hypercoagulable state. Splenic infarcts can be associated with hematologic disorders like malignancy or myeloproliferative disease. As above, image the chest with chest x-ray and chest CT. Check protein electrophoresis and immunoelectrophoresis. Possibly for the future consider hematology referral. Sep, Other Patient instructions: Lab tests today. Chest x-ray and chest CT Follow-up visit in 3-4 weeks PLAN OF TREATMENT Treatment Notes Assessment Notes Clinical Notes Systemic lupus erythematosus, unspecifie d SLE type, unspecified organ involvement status Her previous history sounds consistent w ith mild lupus but currently her laboratory testing is all negative.I do see a lot of variability with the lab testing from lab to lab in this area so it's hard to know what to make of this.Unfortunate and somewhat unusual that she perceives she was having more infections on Plaquenil. This would be an extremely idiosyncratic side effect in relation to using this drug. Plaquenil typically does not promote increased susceptibility to infection.At this time, I think the main thing would be to determine if there is a medication that she could be treated with that will improve her joint pain and fatigue with a favorable safety and side effect profile.She will do some labs today and follow-up in a few weeks to review test results. Polyarthralgia Her main symptom seems to be polyarthralgia, I will check and make sure she doesn't have rheumatoid arthritis or another autoimmune type of arthritis as opposed to SLE. Night sweats She describes night sweats f or the last 4-5 months.This can be a feature of autoimmune disease including SLE, vasculitis or less commonly RA.However, I think it would also be important to rule out the possibility of malignancy.She has already had a thorough abdominal/pelvic workup, I think it would be important to image the chest to make sure there are no unexpected findings. I will order a chest x-ray and a CT scan of the chest. Infarction of spleen The etiology of the splenic infarcts is puzzling.Her lab workup to date shows no evidence of hypercoagulable state.Splenic infarcts can be associated with hematologic disorders like malignancy or myeloproliferative disease.As above, image the chest with chest x-ray and chest CT.Check protein electrophoresis and immunoelectrophoresis.Possibly for the future consider hematology referral. Treatment Notes Test Name Order Date ANGIOTENSIN 1 CONVERTING ENZYM 2020-10-06 CYCLIC CITRULLINATED PEPTIDE 2020-10-06 HEPATITIS B CORE ANTIBODY IGG 2020-10-06 HLA-B27 2020-10-06 QUANTIFERON TB GOLD TEST 2020-10-06 IgG SUBCLASS 4 2020-10-[address] [facility] [address] CHEST W/O FOLL BY WITH CONT 2020-10-06 Next Appt Details 3-4 weeks Reason: Provider Name:Mirandasully Castelan, 2020-10 02:30:00 PM, [address] [place] [address], [place], [address], Insurance Providers Payer Name Payer Address Payer Phone Insured Name Patient Relati onship to Insured Coverage Start Date Coverage End Date [facility] [address] [facility] [phone] AMALIA DUNN LM self
--- OUTSIDE RECORDS SUMMARY | 2020-12-18 21:12 | CCD | Summary of Care ---
Author Author [facility] Organization [facility] Address Unknown Phone Unavailable Care Team Providers Care Game Designer/Creative Director Name Role Phone Zabrina Liu PCP Reason for Visit * Reason Comments Follow-up Encounter Details Care Team Description Date Type Department Remy Morin MD [address] [facility] 2[address] Floor [place], [place] [id number] Systemic lupus erythematosus, unspecifie d SLE type, unspecified organ involvement status (Primary Dx); ISRAEL positive; Vitamin D deficiency 10/08/2020 Telemedicine [facility] Rheumatolog at [facility] [address] [facility] [address], [address] [place] [id number] Allergies Comments Active Allergy Reactions Severity Noted Date Sulfa Antibiotics 08/20/2013 documented as of this encounter (statuses as of 10/08/2020) Medications End Date Status Medication Sig Dispensed Refills Start Date Active levonorgestrel (MIRENA) 1 each by 0 20 MCG/24HR IUD Intrauterine route once. Active Levothyroxine Sodium 25 Take 25 mcg 0 MCG Oral Tablet by mouth (SYNTHROID, LEVOTHROID) Active Aspirin EC 81 MG Oral Take 81 mg by 0 Tablet Delayed Release mouth daily documented as of this encounter (statuses as of 10/08/2020) Active Problems Problem Noted Date Vitamin D deficiency 06/08/2017 ISRAEL positive 06/11/2016 SLE (systemic lupus erythematosus) ISRAEL positive PCOS (polycystic ovarian syndrome) documented as of this encounter (statuses as of 10/08/2020) Social History Date Tobacco Use Types Packs/Day Years Used Never Smoker 0 Smokeless Tobacco: Never Used Drinks/Week oz/Week Comments Alcohol Use 0 Standard drinks or equivalent 0.0 No Sex Assigned at Date Recorded Not on file documented as of this encounter Last Filed Vital Signs Not on filedocumented in this encounter Progress Notes * Remy Morin MD - 10/08/2020 3:00 PM EST Subjective: This is a tele-medical visit. The patient was informed of the risks including se curity breech, technological failure, inability to perform a comprehensive physi robert exam which could delay or prevent an accurate diagnosis, and potential compl ications from treatment decisions rendered over a telemedical platform. The ashly ent understands and consented to the use of tele-health services. Telecommunication method was audio and video on [employer]. The patient verbally consented with telemedicine visit. Patient ID: Eryn Navarro is a 30 y.o. female. HPI This is a 30-year-old, white female with history of polycystic ovarian syndrome, positive ISRAEL, arthritis, suspected SLE came in for follow up. I first time saw her on 06/11/2016 at which time she was referred by primary care doctor for posit sima antinuclear antibody test. Since December 2015, the patient started to have bilateral hand and joint pain. The pain was located in both hand PIP joints and wrists. The pain was achy, 6/10 at worst, stiff in the morning and lasts at l east a half hour. She tried dhzc-efb-jfnrsdg NSAIDs, which was not very helpful . She saw her primary doctor in December 2015. At that time, antinuclear antib luciano was positive and vitamin D was low at 14.4. Her mother and sister both have lupus. She did have rashes on her arms on and off, and she had right ear and j aw pain at this time. She feels a bump on the roof of the mouth. No alopecia. She does have photosensitivity and headaches, and sometimes abdominal pain from endometriosis, dry eyes, mild and no dry mouth. No Raynaud's. One ectopic pre gnancy, no miscarriages, 2 healthy children. Her primary doctor put her on phen termine 37.5 mg for weight loss, which helped for the past of the first 3 months , now her body weight seems to have plateaued. On 12/03/2016, she came in for follow up. I reviewed labs with the patient. ISRAEL s peckle 250. The patient tolerated Plaquenil 200 mg twice a day well. No side-ef fects of the infections. Even though she did not notice a significant improveme nt, her symptoms did not get worse. She would like to continue Plaquenil 200 mg twice a day for now. I encouraged her to see Ophthalmology once a year. She h as not tried Paleo Diet yet, but she gradually changed her diet slowly. She has not been losing weight significantly. Otherwise, she is doing well. No skin r ashes, oral ulcers, alopecia, chest pain. Arthritis mainly of the hands, wrists , and ankles, but this is much less compared to before. On 06/08/2017, the patient came in for follow up. She had EMG/NCS and found to mitchell ve carpal tunnel syndromes of both wrists. She was still on Plaquenil 200mg bid. She tried Paleo diet and lost 20lbs. She felt better but recently had flare up. Majority of her arthritis of both fingers, PIP, MCP, wrist, right elbow, ankles and toes. Will continue Plaquenil 200 mg twice a day. Could add hrmt-tmv-[id number] ter ibuprofen as needed. Will repeat the blood work again. She also noticed a few nevi, her skin getting larger and irregular shape. She would like to see a billing spec. I made a referral. On 10/03/2018, the patient came in for follow up. She has a lot of fatigue. Over all, she is stable on Plaquenil 200 mg twice a day. Still has right hand pain a t PIP, MCP joint and the right thumb CMC joint. She had EMG/NCS and found to mitchell ve very minimal carpal tunnel syndrome. She certainly noticed if she sticks wit h the Paleo diet, she will feel much better. On 10/03/2019, the patient came in for follow up. About a month ago, patient was diagnosed with Rosendo thyroid disease, hypothyroidism. She started levothyr oxine 25 mcg daily 3 weeks ago. She also noticed if she sticks on Paleo diet, s he will feel much better. She has some insomnia and difficult to fall asleep an d maintain sleep. I suggest to add a small dose Flexeril 5 mg at bedtime. We d iscussed about hydroxychloroquine again, but she feels that she has a lot of vir us infections when she was on hydroxychloroquine, and she has been off it right now. Will repeat antinuclear antibody again. Her ISRAEL was negative in September 2018, but that time she was on Plaquenil 200 mg twice a day. If repeat ISRAEL posi tive, she will consider Plaquenil 200 mg daily. On 10/08/2020, telemedicine visit. She had total hysterectomy on 07/28/2020. She was doing fine until about 2 weeks ago, she had severe abdominal pain. She went to ER, then admitted to [facility] for 5 days. 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 Workup showed "a hole" in the heart. She is taking Aspirin 81mg daily. She was referred to notching press operator in 11/12/2020 at [place]. CXR showed pulmonary nodules. She was scheduled to have CT of chest and referral to pulmona ry. She had MRI of brain which was negative. She denied skin rash, small sore on roof of mouth, SOB on exertion, chronic migraine headache, arthralgia at both h and MCP joints, left knee, both ankles. Labs in September 2020 at [facility], CBC, CMP, ESR, CRP, rheumatoid factor, antinuclear antibody, double-strande d DNA, Severino antibody, MACHINE OPERATORS antibody, ANCA, IgA, IgM, IgG, serum protein electrop horesis, beta-2 glycoprotein antibody, anticardiolipin antibody, lupus anticoagu lant were all normal. Doppler of both legs were negative for deep vein thrombos is. Review of Systems Per HPI. Review of complete ROS is negative. Past Medical History: Diagnosis Date ISRAEL positive PCOS (polycystic ovarian syndrome) SLE (systemic lupus erythematosus) Past Surgical History: Procedure Laterality Date FOOT SURGERY TONSILLECTOMY AND ADENOIDECTOMY Family History Problem Relation Age of Onset Lupus Mother Lupus Sister Social History Tobacco Use Smoking status: Never Smoker Smokeless tobacco: Never Used Substance Use Topics Alcohol use: No Alcohol/week: 0.0 standard drinks Drug use: No Sulfa antibiotics Current Outpatient Medications Medication Sig Dispense Refill Aspirin EC 81 MG Oral Tablet Delayed Release Take 81 mg by mouth daily levonorgestrel (MIRENA) 20 MCG/24HR IUD 1 each by Intrauterine route once . Levothyroxine Sodium 25 MCG Oral Tablet (SYNTHROID, LEVOTHROID) Take 25 m cg by mouth No current facility-administered medications for this visit. Objective: Physical Exam There were no vitals taken for this visit. HEENT: no facial erythema, hearing grossly intact. Extremities no cyanosis, club jacqueline or edema. Neuro exam: AAO*3. Skin exam: No psoriasis or vasculitis skin destin h except a few nevi. Joint exam: No active synovitis in both upper and lower ext remity joints except right hand tenderness MCP joints and CMC joints. Left knee and right ankle tenderness. Data reviewed: Labs done 12/31/2015 CBC, CMP TSH, Free T4 were normal. ISRAEL homo 1:80. Vitamin D 14.4 Labs in September [address] [facility], CBC, CMP, ESR, CRP, rheumatoid fact or, antinuclear antibody, double-stranded DNA, Severino antibody, MACHINE OPERATORS antibody, ANC A, IgA, IgM, IgG, serum protein electrophoresis, beta-2 glycoprotein antibody, a nticardiolipin antibody, lupus anticoagulant were all normal. Doppler of both l egs were negative for deep vein thrombosis. Office Visit on 10/03/2019 Component Date Value Ref Range Status Free T3 10/03/2019 3.73 2.00 - 4.40 pg/mL Final Free Thyroxine 10/03/2019 1.35 0.93 - 1.70 ng/dL Final TSH 10/03/2019 0.937 0.270 - 4.200 u[IU]/mL Final Thyroid Peroxidase Ab 10/03/2019 4.6 <9.0 IU/mL Final Albumin 10/03/2019 5.0 3.5 - 5.2 g/dL Final Bilirubin, Total 10/03/2019 0.5 <1.2 mg/dL Final Calcium 10/03/2019 10.1* 8.6 - 10.0 mg/dL Final Chloride 10/03/2019 100 98 - 107 mmol/L Final Creatinine 10/03/2019 0.72 0.50 - 0.90 mg/dL Final Glucose 10/03/2019 90 70 - 140 mg/dL Final Alkaline Phosphatase 10/03/2019 61 35 - 104 U/L Final Potassium 10/03/2019 4.3 3.4 - 5.1 mmol/L Final Total Protein 10/03/2019 7.9 6.4 - 8.3 g/dL Final Sodium 10/03/2019 140 136 - 145 mmol/L Final AST/SGO 10/03/2019 22 <32 U/L Final Blood Urea Nitrogen 10/03/2019 10 6 - 20 mg/dL Final Osmolality, Robert 10/03/2019 289 275 - 300 mosm/kg Final BUN/Cre Ratio 10/03/2019 14 Final Bicarbonate 10/03/2019 26 22 - 29 mmol/L Final ALT/SGP 10/03/2019 30 <33 U/L Final Anion Gap 10/03/2019 14 8 - 15 mmol/L Final A/G Ratio 10/03/2019 1.7 Final GFR Non 2008 CDK-* 10/03/2019 >90 >60 mL/min/1.73m2 Final GFR 2008 CKD-EPI 10/03/2019 >90 >60 mL/min/1.73m2 Final White Blood Cell 10/03/2019 8.5 4 - 10 10*3/uL Final Red Blood Cell 10/03/2019 4.77 4.1 - 5.3 10*6/uL Final Hemoglobin 10/03/2019 14.6 11.5 - 15.5 g/dL Final Hematocrit 10/03/2019 44.0 36 - 45 % Final Mean Cell Volume 10/03/2019 92.3 80 - 96 fL Final Mean Cell Hemoglobin 10/03/2019 30.5 27 - 33 pg Final Mean Cell Hgb Conc 10/03/2019 33.1 32.0 - 36.0 g/dL Final Red Cell Dist Width 10/03/2019 12.4 11.5 - 14.5 % Final Platelet Count 10/03/2019 309 150 - 400 10*3/uL Final Differential Type 10/03/2019 Automated Diff Final Neutrophil 10/03/2019 58 % Final Lymphocyte 10/03/2019 28 % Final Monocyte 10/03/2019 7 % Final Eosinophil 10/03/2019 7 % Final Basophil 10/03/2019 0 % Final Abs Neutrophil 10/03/2019 4.88 1.8 - 7.0 10*3/uL Final Abs Lymphocyte 10/03/2019 2.41 1.2 - 4.0 10*3/uL Final Abs Monocyte 10/03/2019 0.60 0 - 0.8 10*3/uL Final Abs Eosinophil 10/03/2019 0.59* 0 - 0.5 10*3/uL Final Abs Basophil 10/03/2019 0.04 0 - 0.2 10*3/uL Final Nucleated Red Blood Cells 10/03/2019 0 0 - 0 /100 Final Homogeneous Pattern 10/03/2019 <50 0 - 49 1/dil Final Speckled Pattern 10/03/2019 <50 0 - 49 1/dil Final Peripheral Pattern 10/03/2019 <50 0 - 49 1/dil Final ISRAEL,Nucleolar pattern 10/03/2019 <50 0 - 49 1/dil Final Assessment: 1. Positive ISRAEL, skin rash, photosensitivity, arthritis. Suspected mild form of SLE. Responsive to Plaquenil 200mg bid. But frequent infections. Off it in 2017. Repeated ISRAEL negative in 2017, 2018, 2019. 2. Vitamin D deficiency. 3. PCOS. 4. Finley. 5. Fatigue. 6. Rosendo hypothyroidism. Diagnosed in 08/2019. 7. Diagnosed with spleen infarction in 09/2020. Labs in September 2020 at [facility], CBC, CMP, ESR, CRP, rheumatoid factor, antinuclear antibody, double -stranded DNA, Severino antibody, MACHINE OPERATORS antibody, ANCA, IgA, IgM, IgG, serum protein electrophoresis, beta-2 glycoprotein antibody, anticardiolipin antibody, lupus a nticoagulant were all normal. Doppler of both legs were negative for deep vein thrombosis. 8. Heart disease. Plan: - Eryn was seen today for follow-up. Diagnoses and all orders for this visit: Systemic lupus erythematosus, unspecified SLE type, unspecified organ involvemen t status ISRAEL positive Vitamin D deficiency - hold off Plaquenil since repeated autoimmune serology were all negative in 2019. - agreed with cardiology and pulmonary consult. - Discussed about Paleo diet, exercise and lose weight. - Activities as tolerated. - RV in 3 months; above findings, analysis and plan were all discussed with the patient and her questions were answered as much as possible. Time of video visit: 20 minutes. More than half time was education and counselin g. documented in this encounter Plan of Treatment Health Maintenance Due Date Last Done Comments MMR Vaccines ( of - 02/09/1989 Standard series) Varicella Vaccines ( of 02/09/1989 2 - 2-dose childhood series) DTaP,Tdap,and Td Vaccines 02/09/1995 (1 - Tdap) HIV Screening 02/09/2001 Cervical Cancer Screening 02/09/2009 5 years Influenza Vaccine 08/14/2020 08/07/2014 Pneumococcal Vaccine: 65+ 02/09/2053 Years (1 of 1 - PPSV23) HIB Vaccines Aged Out No longer eligible based on patient's age to complete this topic Hepatitis A Vaccines Aged Out No longer eligibl e based on patient's age to complete this topic Hepatitis B Vaccines Aged Out No longer eligibl e based on patient's age to complete this topic IPV Vaccines Aged Out No longer eligible based on patient's age to complete this topic Pneumococcal Vaccine: Aged Out No longer eligib le based on patient's age to Pediatrics (0 to 5 Years) complete this topic and At-Risk Patients (6 to 64 Years) documented as of this encounter Results Not on filedocumented in this encounter Visit Diagnoses Diagnosis Systemic lupus erythematosus, unspecifi ed SLE type, unspecified organ involvement status - Primary ISRAEL positive Other and unspecified nonspecific immun ological findings Vitamin D deficiency Unspecified vitamin D deficiency documented in this encounter
--- OUTSIDE RECORDS SUMMARY | 2020-12-18 21:12 | CCD | Continuity of Care Document ---
Author Author Eryn GOLDSTEIN MD Organization Unknown Address [address] [place] [address], [place] [address] Phone [phone] Care Team Providers Care Logistics Analyst Name Role Phone Dudley Murillo DO AUTM [phone] Zabrina Liu AUTM [phone] Miranda Castelan MD AUTM [phone] Problems Active Problems Provider Date Chronic nonalcoholic [...] Test Result H/L Range Note CMP 10/01/2020 [facility] - not interfaced (315)- - Albumin Serum/Plasma 4.1 Alt - SGPT 31 Calcium Ser/Plasma Mass/Vol 9.3 Carbon Dioxide Ser/Plasm 30 Chloride Serum/Plasma 103 Alkaline Phosphatase 79 Potassium 3.7 Protein Total 7.8 Sodium 138 Ast - Sgot 15 BUN - Urea Nitrogen 9 Glucose 105 83-110 Creatinine For GFR 0.69 CBC without Differential 09/26/2020 [facility] - not inter faced (315)- - White Blood Count 7.7 5.0-10.0 Red Blood Count 4.11 4.00-5.40 Platelets 304 172-450 Hemoglobin 12.4 Hematocrit 38.3 Procedures Date Code Description Status 10/24/2020 69949 ECG 12-Lead Completed Medical Devices Description No [...]
--- OUTSIDE RECORDS SUMMARY | 2020-12-18 21:12 | CCD ---
Author Author [facility] Organization [facility] Address Unknown Phone Unavailable Care Team Providers Care Slot Shift Supervisor Name Role Phone Brooks Wilkinson Unavailable PROBLEMS Type Condition ICD9-CM Code [id number] Code Onset Dates Condition S tatus SNOMED Code Notes Problem PCOS (polycystic ovarian syndrome) E28.2 Activ e [id number] Problem Systemic lupus erythematosus , unspecified SLE type, unspecified organ involvement status M32.9 Active 14076328 ALLERGIES Allergen (clinical drug ingredient) Drug/Non Drug Allergy do cumented on EMR Reaction Allergy Type Onset Date Status Sulfacet-R Anaphylaxis Drug Allergy Active adhesives rash Non Drug Allergy 08/15/2020 Active ENCOUNTERS from 1988 to 2020-10-09 Encounter Location Date Provider Diagnosis [facility] [address] [place] [phone] Aug, Brooks Wilkinson Aftercare following surgery of the genitourinary system Z48.816 IMMUNIZATIONS No Information SOCIAL HISTORY Tobacco Use: [...] FOR REFERRAL No Information VITAL SIGNS Weight 215.2 lbs Aug, Weight-kg 97.61 kg Aug, Height 64 in Aug, BMI 36.93 kg/m2 Aug, Blood pressure systolic 130 mm Hg Aug, Blood pressure diastolic 80 mm Hg Aug, MEDICATIONS Medication SIG (Take, Route, Frequency, Duration) [...] a day Not-Taking PROCEDURES No Information RESULTS No Results REASON FOR VISIT post op hyster bleed MEDICAL (GENERAL) HISTORY Type Description Date Medical History lupus Medical History hashimotos Medical History PCOS Medical History hypothyroid Surgical History RALH, right salpingectomy, cystoscopy Surgical History T&A 1999 Surgical History plantars wart removed under anesthesia 2 002 Surgical History Left salpingectomy- ruptured ectopic 201 1 Surgical History cholecystectomy 2017 Hospitalization History Splenic infarct / patent foramen ova le 09/2020 Goals Section No Information Health Concerns No Information MEDICAL EQUIPMENT No Information MENTAL STATUS No Information FUNCTIONAL STATUS No Information ASSESSMENTS Encounter Date Diagnosis Assessment Notes Treatment Notes Treatm ent Clinical Notes Aug, Aftercare following surgery of the genitourinary system (ICD-10 - Z48.816) No evidence of vaginal cuff dehiscence. No evidence of infection. PLAN OF TREATMENT Treatment Notes Assessment Notes Clinical Notes Aftercare following surgery of the genitourinary system No evidence of vaginal cuff dehiscence. No evidence of infection. Next Appt Details Provider Name:Miranda Castelan, 2020-10 02:30:00 PM, [address] [place] [address], [address], Insurance Providers Payer Name Payer Address Payer Phone Insured Name Patient Relati onship to Insured Coverage Start Date Coverage End Date [facility] [employer] [address] [facility] [address] [phone] AMALIA DUNN LM self
--- OUTSIDE RECORDS SUMMARY | 2020-12-18 21:12 | CCD | Summary of Care ---
Author Author [facility] Organization [facility] Address Unknown Phone Unavailable Care Team Providers Care Dermatologist Managing Partner Name Role Phone Zabrina Liu PCP Reason for Visit * Reason Comments Follow-up Encounter Details Care Team Description Date Type Department Remy Morin MD [address] [facility] 2nd Floor [place], [place] [id number] Systemic lupus erythematosus, unspecifie d SLE type, unspecified organ involvement status (Primary Dx); ISRAEL positive; Vitamin D deficiency 10/01/2020 Office Visit [facility] Rheumatolog y at [facility] [address] [facility] [address], [address] [place] [phone] Allergies Comments Active Allergy Reactions Severity Noted Date Sulfa Antibiotics 08/20/2013 documented as of this encounter (statuses as of 10/03/2020) Medications End Date Status Medication Sig Dispensed Refills Start Date Active levonorgestrel (MIRENA) 1 each by 0 20 MCG/24HR IUD Intrauterine route once. Active Levothyroxine Sodium 25 Take 25 mcg 0 MCG Oral Tablet by mouth (SYNTHROID, LEVOTHROID) Active Aspirin EC 81 MG Oral Take 81 mg by 0 Tablet Delayed Release mouth daily documented as of this encounter (statuses as of 10/03/2020) Active Problems Problem Noted Date Vitamin D deficiency 06/08/2017 ISRAEL positive 06/11/2016 SLE (systemic lupus erythematosus) ISRAEL positive PCOS (polycystic ovarian syndrome) documented as of this encounter (statuses as of 10/03/2020) Social History Date Tobacco Use Types Packs/Day Years Used Never Smoker 0 Smokeless Tobacco: Never Used Drinks/Week oz/Week Comments Alcohol Use 0 Standard drinks or equivalent 0.0 No Sex Assigned at Date Recorded Not on file documented as of this encounter Last Filed Vital Signs Reading Time Taken Comments Vital Sign - - Blood Pressure - - Pulse - - Temperature - - Respiratory Rate - - Oxygen Saturation - - Inhaled Oxygen Concentration 98.9 kg (218 lb) 09/30/2020 3:47 PM EST Weight 162.6 cm (5' 4.02") 09/30/2020 3:47 PM EST Height 37.4 09/30/2020 3:47 PM EST Body Mass Index documented in this encounter Progress Notes * Remy Morin MD - 10/01/2020 11:00 AM EST Subjective: Patient ID: Eryn Navarro is a 30 y.o. female. HPI This is a 29-year-old, white female with history of polycystic ovarian [...] l east a half hour. She tried [id number]-uvl-tllexni NSAIDs, which was not very helpful . [...] 200 mg twice a day. Could add zdbr-ggj-ipun ter ibuprofen as needed. Will repeat the blood work again. She also noticed a few nevi, her skin getting larger and irregular shape. She would like to see a restaurant host. I made a referral. On 10/03/2018, the [...] she will consider Plaquenil 200 mg daily. Review of Systems Per HPI. Review of [...] Release Take 81 mg by mouth daily Levothyroxine Sodium 25 MCG Oral Tablet (SYNTHROID, LEVOTHROID) Take 25 m cg by mouth levonorgestrel (MIRENA) 20 MCG/24HR IUD 1 each by Intrauterine route once . No current facility-administered medications for this visit. Objective: Physical Exam Visit Vitals Ht 1.626 m (5' 4.02") Wt 98.9 kg (218 lb) BMI 37.40 kg/m HEENT: no facial erythema, hearing grossly intact. Chest exam: clear to ausculta tion, no wheezing or crackles. Good airway entry. Heart exam: regular rate and r hythm, S1, S2 present, no murmur, rub, gallop. Extremities no cyanosis, clubbing or edema. Neuro exam: AAO*3, no focal deficits. Muscle strength preserved. Skin exam: No psoriasis or vasculitis skin rash except a few nevi. Joint exam: No ac tive synovitis in both upper and lower extremity joints except right hand tender ness at PIP, MCP joints and CMC joints. Normal gait and stance. Data reviewed: Labs done 12/31/2015 CBC, CMP TSH, Free T4 were normal. ISRAEL homo 1:80. Vitamin D 14.4 Office Visit on 10/03/2019 Component Date Value [...] 10 6 - 20 mg/dL Final Osmolality, Jacob 10/03/2019 289 275 - 300 mosm/kg Final [...] Plaquenil 200mg bid. But frequent infections. Off it. 2. Vitamin D deficiency. 3. PCOS. 4. Hope. 5. Fatigue. 6. Rosendo hypothyroidism. Diagnosed in 08/2019. Plan: - Eryn was seen today for follow-up. Diagnoses and all orders for this visit: Systemic lupus erythematosus, unspecified SLE type, unspecified organ involvemen t status ISRAEL positive Vitamin D deficiency - Flexeril 5mg at bedtime. E-prescribed. - Consider hydroxychloroquine 200mg daily if repeat ISRAEL positive again. Need santosh gonzalez pipe joints supervisor exam to monitor retinal toxicity. Side effect explained. - Discussed about Paleo diet, exercise and lose weight. - Activities as tolerated. - RV in 12 months; above findings, analysis and plan were all discussed with the patient and her questions were answered as much as possible. documented in this encounter Plan of Treatment Health Maintenance Due Date Last Done Comments MMR Vaccines (1 of - 02/09/1989 Standard series) Varicella Vaccines (1 of 02/09/1989 2 - 2-dose childhood series) [...]
--- OUTSIDE RECORDS SUMMARY | 2020-12-18 21:12 | CCD | Continuity of Care Document ---
Author Author [facility] Address [address] [place] [address] Phone Support Name Relationship Address [place] [address] Marito Stapleton PRS [address] [place] [address] Zev Figueroa PRS [address] [place] [address] Doctor Provided, Family No PRS Unknown Unava ilable Emiliano Delarosa PRS [address] [place] [address] Elkin II, Luis Miguel Sullivan PRS [facility] [place] [address] Elkin HONG, Luis Miguel Sullivan PRS [address] [place] [address] [place] [address] Allergies, Adverse Reactions, Alerts Allergen Type Severity Reaction Last Updated Verified Status Sulfa (Sulfonamide Antibiotics) Allergy Severe COULD NOT BREATH June 18, 2020 11:59am Yes Active SEASONAL ALLERGIES Allergy Unknown June 18, 2020 11:59am Yes Active Medications Medication Status Dose Units Route Directions Qty Days Start Date End Date Instructions Levonorgestrel (Mirena) 20 mcg/24 hours (5 yrs) 52 mg intrauterine device Discontinued intrauterine September 06, 2019 1:53pm January 10:56am Levothyroxine Discontinued 25 MCG PO daily September 06, 2019 2:49pm September 06, 2019 3:04pm Levothyroxine (Synthroid) 25 mcg tablet Discontinued 25 MCG PO daily September 06, 2019 3:02pm January 22, 2020 1:44pm Metronidazole Discontinued 500 MG PO 2 Times Per Day 14 November 01, 2019 12:33pm November 08, 2019 12:05am Amoxicillin-Pot Clavulanate (Augmentin) 875-125 mg tab let Discontinued 1 TAB PO 2 Times Per Day 14 November 01, 2019 12:33pm January 212019 1:44pm Multivitamin Active 1 TAB PO daily January 22, 2020 1:45pm Ciprofloxacin Hcl (Cipro) 500 mg tablet Discontinued 500 MG PO 2 Times Per Day 20 January 24, 2020 8:24am February 02, 2020 11:03pm 1 tab by mouth twice a day for 10 days Fluconazole (Diflucan) 150 mg tablet Discontinued 150 MG PO Every Week 1 January 24, 2020 8:2 7am March 07, 2020 9:05am 1 tab by ashley once a week IF NEEDED Doxycycline Hyclate Discontinued 100 MG PO 2 Times Per Day 14 February 01, 2020 10 :53am February 07, 2020 11:03pm 1 tab by mo [facility] twice a day for 7 days Fluconazole (Diflucan) 150 mg tablet Discontinued 150 MG PO Every Week 1 February 01, 2020 10:53am March 07, 2020 9:05am 1 tab by mouth once a week IF NEEDED Meloxicam (Mobic) 15 mg tablet Discontinue d 15 MG PO daily 15 February 01, 2020 10 :54am May 28, 2020 10:26am 1 tab by ashley for 3 days every month Levonorgestrel (Mirena) 20 mcg/24 hours (5 yrs) 52 mg intrauterine device Discontinued 20 MCG intrauterine February 01, 2020 10:57am November 8:34am Doxycycline Hyclate Discontinued 100 MG PO 2 Times Per Day 28 March 07, 2020 9 :45am March 19, 2020 4:51pm 1 tab by mouth twice a day for 14 days Metronidazole (Flagyl) 500 mg tablet Discontinued 500 MG PO 2 Times Per Day 28 March 07, 2020 9:46am March 19, 2020 4:52pm 1 tab by mouth twice a day for 14 days Fluconazole (Diflucan) 150 mg tablet Discontinued 150 MG PO Every Week 2 March 07, 2020 9:46am March 19, 2020 4:52pm 1 tab by mouth once a week IF NEEDED Metformin Discontinued 1 500 MG PO At Bedtime April 02, 2020 11:57am November 19, 2020 8:34am Cimetidine Discontinued 800 MG PO 2 Times Per Day 60 April 02, 2020 11:58am May 28, 2020 10:26am administer with meals Levothyroxine (Synthroid) 25 mcg tablet Discontinued 25 MCG PO daily April 02, 2020 11:5 9am November 19, 2020 8:34am Phentermine Discontinued 37.5 MG PO Once Per Day June 18, 2020 12:04pm June 18, 2020 12:26pm take 1 tab by mouth daily as directed Phentermine Discontinued 37.5 MG PO Once Per Day June 18, 2020 12:26pm November 19, 2020 8:35am take 1 tab by mouth daily as directed Aspirin (St Zen Aspirin) 81 mg tablet,chewable Active 81 MG PO d aily November 19, 2020 8:35am Hydroxychloroquine Discontinued 100 MG PO Once Per Day July 26, 2017 8:43am July 27, 2019 6:11am Oxycodone-Acetaminophen Discontinued 1 TAB PO Every 4 hours February 13, 2018 2:3 0pm March 01, 2018 12:58pm Multivitamin (Daily Tracy) 1 EACH tablet Discontinued 1 EACH PO Once Per Day August 07, 2014 9:40am July 26, 2017 8:49am Desogestrel-Ethinyl Estradiol (Ortho-Cept) 1 EACH tabl et Discontinued 1 TAB PO Once Per Day August 07, 2014 9:40am June 212014 12:51am Flu Vacc [id number](4yr,Up)(Pf) (Fluvirin [id number] Syringe) 45 MCG/0.5 ML syringe Discontinued 0.5 ML IM ONE TIME August 07, 2014 11:51am August 07, 2014 11:53am Sumatriptan Succinate (Imitrex) 100 MG tablet Discontinued 100 MG PO ONE TIME March 11, 2016 10:57am January 30, 2018 10:28am 1TAB AT ONSET OF HEADACHE, MAY REPEAT IN 2HRS, MAX 200MG/24HRS Phentermine Discontinued 18.75 MG PO Once Per Day March 11, 2016 10:57am March 11, 2016 2:57pm [employer] [id number], MDD 1TAB Phentermine Discontinued 18.75 MG PO Once Per Day March 11, 2016 2:58pm April 07, 2016 10:35am [employer] [id number], MDD 1/2TAB Ketotifen Fumarate Discontinued 1 DROPS OP 2 Times Per Day 1 March 11, 2016 4:3 2pm December 31, 2016 2:20pm 1 DROP OU BID,DISPENSE 1 BOTTLE Phentermine Discontinued 37.5 MG PO Once Per Day April 07, 2016 10:35am May 04, 2016 9:21am [employer] [id number], MDD 1TAB Fluticasone Propionate Discontinued 1 SM.AMT TP 2 Times Per Da y April 07, 2016 10:35 am July 26, 2017 8:49am apply to affected areas bid, no longer than 2wks at one time Loratadine Discontinued 10 MG PO Once Per Day May 04, 2016 9:21am December 31, 2016 2:20pm Phentermine Discontinued 37.5 MG PO Once Per Day May 04, 2016 9:43am June 07, 2016 5:51pm [employer] [id number] Phentermine Discontinued 37.5 MG PO Once Per Day June 07, 2016 5:52pm June 22, 2016 12:59pm [employer] #[id number] Hydroxychloroquine Discontinued 200 MG PO 2 Times Per Day June 17, 2016 3:4 6pm July 26, 2017 8:49am Phentermine Discontinued 37.5 MG PO Once Per Day June 22, 2016 12:59pm June 29, 2016 12:01pm [employer] #[id number] Phentermine Discontinued 37.5 MG PO Once Per Day June 29, 2016 12:02pm July 08, 2016 10:00am [employer] #[id number] Phentermine Discontinued 37.5 MG PO Once Per Day July 08, 2016 10:01am December 31, 2016 5:17pm [employer] #[id number] Ketotifen Fumarate Discontinued 1 DROPS OP 2 Times Per Day 1 December 31, 2016 2:20pm July 26, 2017 8:49am 1 DROP O U BID,DISPENSE 1 BOTTLE,prn Loratadine Discontinued 10 MG PO Once Per Day December 31, 2016 2:20pm July 26, 2017 8:49am durind spring/summer/fall as needed Phentermine Discontinued 37.5 MG PO Once Per Day December 31, 2016 5:18pm February 04, 2017 9:22am [employer] [id number] , 1/2tab daily x 7days then 37.5mg daily Phentermine Discontinued 37.5 MG PO Once Per Day February 04, 2017 9:22am March 10, 2017 10:31am [employer] [id number] Phentermine Discontinued 37.5 MG PO Once Per Day March 10, 2017 10:31am April 06, 2017 8:20am [employer] [id number] Cholecalciferol (Vitamin D3) Discontinued 3 TAB PO Once Per Day April 06, 2017 7:53a m July 26, 2017 8:49am Phentermine Discontinued 37.5 MG PO Once Per Day April 06, 2017 8:21am May 19, 2017 8:58am [employer] [id number] Fluconazole Discontinued 150 MG PO ONE TIME April 19, 2017 11:52am July 26, 2017 8:49am Phentermine Discontinued 37.5 MG PO Once Per Day May 19, 2017 8:58am July 26, 2017 8:48am [employer] [id number] Cetirizine Discontinued 10 MG PO Once Per Day September 19, 2017 10:49am 2018 12:32pm Amoxicillin Discontinued 500 MG PO Three times a day September 19, 2017 10:49am January 30, 2018 10:28am Fluconazole Discontinued 150 MG PO ONE TIME September 19, 2017 11:17am January 30, 2018 10:28am Phentermine Discontinued 37.5 MG PO As Directed (Daily ) April 04, 2018 2:27 pm June 15, 2018 1:45pm [employer] [id number] , 1/2TAB DAILY X 1WK THEN 1TAB DAILY Amoxicillin-Pot Clavulanate (Augmentin 8 75-125 Tablet) 1 EACH tablet Discontinued 875 MG PO Every 12 Hours May 02, 2018 9:35am June 15 018 1:26pm Cholecalciferol (Vitamin D3) Discontinued 3000 UNIT PO September 14, 2018 1 :11pm July 27, 2019 6:11am Fluconazole Discontinued 150 MG PO .ONCE 1 November 05, 2019 11:00am November 06, 2019 12:02am Problems Active Problems Medical Problem Onset Date Status Poor sleep pattern Act sima SLE (systemic lupus erythematosus) F ebruary 2016 Active Educated about management of weight Active Encounter for removal and reinsertion of IUD Active Migraine with aura and without status mi grainosus, not intractable March 11, 2016 Active History of chronic cystitis Active Polycystic ovaries Act sima PID (pelvic inflammatory disease) Active Pelvic pain Active Pelvic pain Active ISRAEL positive Active ISRAEL positive June 16, 2016 Active Weight gain, abnormal Active Dysuria Active Endometriosis determined by laparoscopy Active Rosendo's thyroiditis Active PFO (patent foramen ovale) Active Splenic infarct Active Abdominal pain Active Hemorrhagic cysts of both ovaries Active Inactive/Resolved Problems Medical Problem Onset Date Status Delivery normal Resolv ed Acute abdominal pain R esolved Cholecystitis Resolved Left knee pain Resolve d Right wrist pain Resol sally Abdominal pain Resolve d Procedures Procedure Date Performed Status Xray Barium enema-SINGLE CONTR May 30, 2020 11:41am completed US Pelvic complete April 23, 2020 11:30am completed CT Abd/pel w/ contrast March 19, 2020 4:01p m completed Genital Culture February 01, 2020 completed Anaerobic Culture February 01, 2020 completed US Pelvic complete January 22, 2020 5:42pm completed Urine Culture January 22, 2020 completed Relevant Diagnostic Tests and/or Laboratory Data Laboratory Results Test Date/Time Result Interpretation Reference Range Result Comment Performing Site Urine Specific [place] November 19, 2020 9:20am 1.005 Urine pH November 19, 2020 9:20am 6 Urine Leukocyte Esterase November 9:20am NEGATIVE Urine Nitrite November 19, 2020 9:20am NEGATIVE Urine Protein November 19, 2020 9:20am NEGATIVE Urine Ketones November 19, 2020 9:20am NEG mg/dl Urine Urobilinogen November 19, 2020 9:20a m NORMAL Urine Blood November 19, 2020 9:20am NEGATIVE Urine Hemoglobin November 19, 2020 9:20am NEGATIVE Urine Glucose November 19, 2020 9:20am NORMAL Urine Bilirubin November 19, 2020 9:20am NORMAL White Blood Count March 19, 2020 4:15pm 7.9 10e3/uL 4.45-10.71 [facility], [address] [place] [address] 40511 Red Blood Count March 19, 2020 4:15pm 4.36 10e6/uL 4.20-5.40 [facility], [address] [place] [address] 42291 Hemoglobin March 19, 2020 4:15pm 13.5 g/dL 10.7-15.4 [facility], [address] [place] [address] 43054 Hematocrit March 19, 2020 4:15pm 40.2 % 37-47 [facility], [address] [place] [address] Mean Corpuscular Volume March 19 0 4:15pm 92.2 fl 80-96 [facility], [address] [place] [address] Mean Corpuscular Hemoglobin March 19, 2020 4:15pm 31.0 pg 27-31 [facility], [address] [place] [address] 45288 Mean Corpuscular Hemoglobin Concent March 19, 2020 4:15pm 33.6 g/dl 33-37 [facility], [address] [place] [address] Red Cell Distribution Width March 19, 2020 4:15pm 12 % 11-15 [facility], [address] [place] [address] 33163 Platelet Count March 19, 2020 4:15pm 282 10e3/ul 130-472 [facility], [address] [place] [address] 35298 Mean Platelet Volume March 19, 2020 4:15pm 9.6 fl 9.1-13.1 [facility], [address] [place] [address] 16570 Neutrophils (%) (Auto) March 19, 2020 4:15p m 50.8 % 41-77 [facility], [address] [place] [address] 64858 Absolute Neutrophil March 19, 2020 4:15pm 4.0 # 1.7-7.6 [facility], [address] [place] [address] 78680 Lymphocytes (%) (Auto) March 19, 2020 4:15p m 32.7 % 14-46 [facility], [address] [place] [address] 44079 Lymphocytes # (Auto) March 19, 2020 4:15pm 2.6 # 0.6-4.6 [facility], [address] [place] [address] 09821 Monocytes (%) (Auto) March 19, 2020 4:15pm 8.1 % 4-12 [facility], [address] [place] [address] 96904 Monocytes # March 19, 2020 4:15pm 0.6 # 0.2-1.2 [facility], [address] [place] [address] 23730 Eosinophils (%) (Auto) March 19, 2020 4:15p m 7.4 % 0-7 [facility], [address] [place] [address] 04888 Absolute Eosinophils (CBC) March 19, 2020 4:15pm 0.6 # 0.0-0.5 [facility], [address] [place] [address] 03129 Basophils (%) (Auto) March 19, 2020 4:15pm 0.5 % 0.4-1.3 [facility], [address] [place] [address] 21226 Absolute Basophils (CBC) March 19 4:15pm 0.0 # 0.0-0.2 [facility], [address] [place] [address] 53856 Immature Granulocyte % (Auto) March 4:15pm 0.5 % 0-2 [facility], [address] [place] [address] 76588 Absolute Immature Granulocyte (auto March 19, 2020 4:15pm 0.0 # 0-0.1 [facility], [address] [place] [address] 02815 Add Manual Differential March 19 0 4:15pm No [facility], [address] [place] [address] Urine Color April 02, 2020 10:49am Yellow [facility], [address] [place] [address] Urine Color March 19, 2020 5:10pm Yellow [facility], [address] [place] [address] Urine Color March 07, 2020 9:20am Yellow [facility], [address] [place] [address] Urine Color January 22, 2020 2:10pm Yellow [facility], [address] [place] [address] Urine Appearance April 02, 2020 10:49am Clear CLEAR [facility], [address] [place] [address] Urine Appearance March 19, 2020 5:10pm Clear CLEAR [facility], [address] [place] [address] Urine Appearance March 07, 2020 9:20am Clear CLEAR [facility], [address] [place] [address] Urine Appearance January 22, 2020 2:10pm Clear CLEAR [facility], [address] [place] [address] Urine pH April 02, 2020 10:49am 7.5 [facility], [address] [place] [address] Urine pH March 19, 2020 5:10pm 7.0 [facility], [address] [place] [address] Urine pH March 07, 2020 9:20am 7.0 [facility], [address] [place] [address] Urine pH January 22, 2020 2:10pm 6.5 [facility], [address] [place], [place] [id number] Urine Specific [place] April 02 0 10:49am 1.007 [facility], [address] [place] [address] 49117 Urine Specific [place] March 19, 2020 5:10p m 1.009 [facility], [address] [place], [place] [id number] Urine Specific [place] March 07, 020 9:20am 1.003 [facility], [address] [place] [address] 35243 Urine Specific [place] January 21, 020 2:10pm 1.006 [facility], [address] [place] [address] 31358 Urine Leukocyte Esterase April 02, 020 10:49am Negative NEGATIVE [facility], [address] [place] [address] 62287 Urine Leukocyte Esterase March 19 5:10pm Negative NEGATIVE [facility], [address] [place] [address] Urine Leukocyte Esterase March 07, 2020 9:20am Negative NEGATIVE [facility], [address] [place] [address] 82490 Urine Leukocyte Esterase January 22, 2020 2:10pm Moderate NEGATIVE A Culture has been added to this specimen per established criteria [facility], [address] [place] [address] Urine Nitrate April 02, 2020 10:49am Negative NEGATIVE [facility], [address] [place] [address] Urine Nitrate March 19, 2020 5:10pm Negative NEGATIVE [facility], [address] [place] [address] Urine Nitrate March 07, 2020 9:20am Negative NEGATIVE [facility], [address] [place] [address] Urine Nitrate January 22, 2020 2:10pm Negative NEGATIVE [facility], [address] [place] [address] Urine Protein April 02, 2020 10:49am Negative NEGATIVE [facility], [address] [place] [address] Urine Protein March 19, 2020 5:10pm Negative NEGATIVE [facility], [address] [place] [address] Urine Protein March 07, 2020 9:20am Negative NEGATIVE [facility], [address] [place] [address] 68000 Urine Protein January 22, 2020 2:10pm Negative NEGATIVE [facility], [address] [place] [address] 90874 Urine Glucose April 02, 2020 10:49am Negative NEGATIVE [facility], [address] [place] [address] 56146 Urine Glucose March 19, 2020 5:10pm Negative NEGATIVE [facility], [address] [place] [address] 62970 Urine Glucose March 07, 2020 9:20am Negative NEGATIVE [facility], [address] [place] [address] 68379 Urine Glucose January 22, 2020 2:10pm Negative NEGATIVE [facility], [address] [place] [address] 51931 Urine Ketones April 02, 2020 10:49am Negative NEGATIVE [facility], [address] [place] [address] Urine Ketones March 19, 2020 5:10pm Negative NEGATIVE [facility], [address] [place] [address] 73029 Urine Ketones March 07, 2020 9:20am Negative NEGATIVE [facility], [address] [place] [address] 82682 Urine Ketones January 22, 2020 2:10pm Negative NEGATIVE [facility], [address] [place] [address] 72333 Urine Urobilinogen April 02, 2020 10:49am 0.2 eu/dl [facility], [address] [place] [address] 66685 Urine Urobilinogen March 19, 2020 5:10pm 0.2 eu/dl [facility], [address] [place] [address] Urine Urobilinogen March 07, 2020 9:20am 0.2 eu/dl [facility], [address] [place] [address] 03019 Urine Urobilinogen January 22, 2020 2:10pm 0.2 eu/dl [facility], [address] [place] [address] 34637 Urine Bilirubin April 02, 2020 10:49am Negative NEGATIVE [facility], [address] [place] [address] 70227 Urine Bilirubin March 19, 2020 5:10pm Negative NEGATIVE [facility], [address] [place] [address] 44559 Urine Bilirubin March 07, 2020 9:20am Negative NEGATIVE [facility], [address] [place] [address] 81262 Urine Bilirubin January 22, 2020 2:10pm Negative NEGATIVE [facility], [address] [place] [address] 89874 Urine Blood April 02, 2020 10:49am Negative NEGATIVE [facility], [address] [place] [address] 11360 Urine Blood March 19, 2020 5:10pm Negative NEGATIVE [facility], [address] [place] [address] Urine Blood March 07, 2020 9:20am Negative NEGATIVE [facility], [address] [place] [address] 51644 Urine Blood January 22, 2020 2:10pm Negative NEGATIVE [facility], [address] [place] [address] 99029 Add Urine Microanalysis April 02 10:49am No [facility], [address] [place] [address] 80984 Add Urine Microanalysis March 19 0 5:10pm No [facility], [address] [place] [address] Add Urine Microanalysis March 07, 2020 9:20am No [facility], [address] [place] [address] Add Urine Microanalysis January 22, 2020 2:10pm Microscopic added [facility], [address] [place] [address] Urine WBC January 22, 2020 2:10pm 8-12 /hpf [facility], [address] [place] [address] 19548 Urine Squamous Epithelial Cells [place] 2019 2:10pm Few /hpf [facility], [address] [place] [address] 75189 Urine Bacteria January 22, 2020 2:10pm Small amount NEGATIVE [facility], [address] [place] [address] 68622 Blood Urea Nitrogen March 19, 2020 4:15pm 8 mg/dL 9-23 [facility], [address] [place] [address] 91603 Sodium Level March 19, 2020 4:15pm 140 mmol/L 132-146 [facility], [address] [place] [address] 16999 Potassium Level March 19, 2020 4:15pm 3.7 mmol/L 3.5-5.5 [facility], [address] [place] [address] 21057 Chloride Level March 19, 2020 4:15pm 108 mmol/l 99-109 [facility], [address] [place] [address] 79291 Carbon Dioxide Level March 19, 2020 4:15pm 27 mmol/l 20-31 [facility], [address] [place] [address] 09465 Anion Gap March 19, 2020 4:15pm 9 mmol/l 8-16 L [facility], [address] [place] [address] 01281 Glucose Level March 19, 2020 4:15pm 96 mg/dL 74-106 [facility], [address] [place] [address] 99516 Creatinine March 19, 2020 4:15pm 0.7 mg/dL 0.5-1.1 [facility], [address] [place] [address] 75570 Glomerular Filtration Rate Calc March 19, 2020 4:15pm Greater than 60 ml/min ABOVE 60 [facility], [address] [place] [address] 57211 Alanine Aminotransferase (ALT/SGPT) March 19, 2020 4:15pm 49 U/L 10-49 [facility], [address] [place] [address] 62947 Aspartate Amino Transf (AST/SGOT) Ma y 2019 4:15pm 30 U/L 0-33 [facility], [address] [place] [address] 68908 Alkaline Phosphatase March 19, 2020 4:15pm 71 U/L 45-129 [facility], [address] [place] [address] 81336 Amylase Level March 19, 2020 4:15pm 70 U/L 30-118 [facility], [address] [place] [address] 88191 Lipase March 19, 2020 4:15pm 112 U/L 73-393 [facility], [address] [place] [address] 63364 Calcium Level March 19, 2020 4:15pm 9.5 mg/dL 8.5-10.1 [facility], [address] [place] [address] 71053 Total Bilirubin March 19, 2020 4:15pm 0.5 mg/dL 0.3-1.2 [facility], [address] [place] [address] 30354 Albumin March 19, 2020 4:15pm 4.0 g/dL 3.2-4.8 [facility], [address] [place] [address] 10772 Serum Total Protein March 19, 2020 4:15pm 7.4 g/dL 5.7-8.2 [facility], [address] [place] [address] 96178 Serum Test, Qualitative Ma y 2019 4:15pm Negative NEGATIVE [facility], [address] [place] [address] 38318 Thin Prep Pap w Human Papilloma Vir January 22, 2020 2:30pm See scanned report [facility], [address] [facility] [address] Trichomonas DNA Probe January 21 2:30pm Negative Negative Performed at: RN - [facility] [address] [place], [place] [id number] Director: Shanell Kyle MD, Phone: [phone] [facility] , [address] [facility] [address] Gardnerella DNA Probe January 21 2:30pm Negative Negative [facility] , [address] [facility] [address] Chelsy species DNA Probe January 2:30pm Negative Negative [facility] , [address] [facility] [address] Chlamydia trachomatis (CHIDI) (LAB) [facility] 2019 2:30pm Negative Negative [facility] , [address] [facility] [address] Neisseria gonorrhoeae DNA (CHIDI) [facility] 2019 2:30pm Negative Negative Performed at: RN [facility] [address] [place], [place] [id number] Director: Shanell Kyle MD, Phone: [phone] [facility] , [address] [facility] [id number] Microbiology Results Procedure Source Result Collection Date/Time Result Date/Time Result Comment Performing Site Urine Culture Urine,clean catch No growth. January 22, 2020 3:10pm January 23, 2020 1:46pm [facility], [address] [place] [address] 77161 Genital Culture Cervical/vaginal February 01, 2020 11:30am February 04, 2020 8:17am [facility], [address] [place] [address] 93838 Anaerobic Culture Cervical/vaginal February 01, 2020 11:30am February 04, 2020 8:17am [facility], [address] [place] [address] 53845 Diagnostic Imaging Reports Report Dictated Date/Time Dictated By Status Radiology Report January 23, 2020 8:09am Alber Ortiz MD completed [facility] [address] [place] [address] [phone] NAME SEX PT STATUS ACCOUNT NUMBER AMALIA NAVARRO BRITTANIE REG REF [id number] ORDERING PHYSICIAN LOCATION MEDICAL RECORD NO. Marito Stapleton MD [id number] ATTENDING PHYSICIAN DATE OF DATE OF EXAM/TIME Zabrian Liu RPA 1990 01/22/201841 TYPE / EXAM US Pelvic complete REASON FOR EXAM pelvic pain COMPARISON: None FINDINGS: The uterus is normal in size and echogenicity. There is no evidence of lobulation or contour abnormality. The adnexa reveal no evidence of mass, cysts, or other abnormality. No fluid is seen in the cul-de-sac. The uterus measures 9.7 x 3.5 x 5.9cm. The endometrium measures approximately 4.5 mm AP dimension. The right ovary measures 4.2 x 2.7 x 3.0cm. A right ovarian cyst measures approximately 2.6 x 2.6 x 1.8 cm. The left ovary measures 2.4 x 1.7 x 1.8cm. Both ovaries demonstrate normal spectral waveforms. The bladder is unremarkable. IMPRESSION: 1. 2.6 cm right ovarian cyst. 2. Normal spectral waveforms in both ovaries. 3. IUD in place. 4. No free pelvic fluid. Reported By Alber Ortiz MD on 01/23/20808 Signed By Alber Ortiz MD on 01/23/20812 Date Time CC: Alber Ortiz MD; Zabrina Liu Techn: NOREM Trans Dt/Tm: Trans by: DT Prt Dt/Tm: : Total DLP = 0.00 mGy-cm : Total Radiation Dose = 0.0000 mSv Lifetime Dose: 0 mSv Radiology Report March 19, 2020 6:23pm Anaya White MD completed [id number] [place] [address] [phone] NAME SEX PT STATUS ACCOUNT NUMBER Amalia Navarro LM F [facility] [id number] ORDERING PHYSICIAN LOCATION MEDICAL RECORD NO. Emiliano Delarosa MD [id number] ATTENDING PHYSICIAN DATE OF DATE OF EXAM/TIME Zabrina Liu RPA 1988 03/19/20 / 1701 TYPE / EXAM CT Abd/pel w/ contrast REASON FOR EXAM RLQ pain, nausea; R/O Appy Clinical History/Indication for Exam: RLQ pain, nausea; R/O Appy CT ABDOMEN AND PELVIS WITH INTRAVENOUS CONTRAST INDICATION: Rule out appy. TECHNIQUE: Axial computed tomography images of the abdomen and pelvis with intravenous contrast. Sagittal and coronal reformatted images were created and reviewed. This CT exam was performed using one or more of the following dose reduction techniques: automated exposure control, adjustment of the mA and/or kV according to patient size, and/or use of iterative reconstruction technique. COMPARISON: no prior. FINDINGS: Lung bases: Unremarkable. No mass. No consolidation. ABDOMEN: Liver: Hepatic steatosis is present. Gallbladder and bile ducts: Cholecystectomy. No ductal dilation. Pancreas: Unremarkable. No mass. No ductal dilation. Spleen: Splenic calcifications are present consistent with old granulomatous disease. Adrenals: Unremarkable. No mass. Kidneys and ureters: The LEFT kidney shows 2.5 cm simple cyst in the mid to inferior pole region. No hydronephrosis. Stomach and bowel: Unremarkable. No obstruction. No mucosal thickening. PELVIS: Appendix: Normal appendix. Bladder: Unremarkable. No mass. Reproductive: Mirena type IUD is present in satisfactory position in the uterus lumen. Normal ovaries. ABDOMEN and PELVIS: Intraperitoneal space: Unremarkable. No free air. No significant fluid collection. Bones/joints: Moderate RIGHT posterolateral disc herniation at T10-T11. No acute fracture. No dislocation. Soft tissues: Unremarkable. Vasculature: Unremarkable. No abdominal aortic aneurysm. Lymph nodes: Unremarkable. No enlarged lymph nodes. IMPRESSION: 1. Normal appendix. 2. Hepatic steatosis. 3. No acute pathology present within the abdomen or within the pelvis. Automatic exposure control was used as a dose lowering technique. Radiation Dose: CTDI is 21.74 mGy. DLP is 1127 mGy-cm. Contrast Type: Isovue 300. Contrast Volume: 100 mL REPORT SIGNATURE ON FILE 03/19/2020 (18:23 Eastern Time ) Signed by: Anaya White M.D. Reported By Anaya White MD on 03/19/201822 Signed By Anaya White MD on 03/19/201822 Date Time CC: Anaya White MD; Zabrina Liu Techn: EBEBR Trans Dt/Tm: Trans by: DT Prt Dt/Tm: : Total DLP = 1127.00 mGy-cm : Total Radiation Dose = 16.9050 mSv Lifetime Dose: 16.9050 mS v Radiology Report April 23, 2020 1:38pm Alber Ortiz MD completed [id number] [place] [address] [phone] NAME SEX PT STATUS ACCOUNT NUMBER AMALIA NAVARRO LM F REG REF [id number] ORDERING PHYSICIAN LOCATION MEDICAL RECORD NO. Nate Granger II, MD [id number] ATTENDING PHYSICIAN DATE OF DATE OF EXAM/TIME Zabrina Liu RPA 1988 04/23/20 / 0 TYPE / EXAM US Pelvic complete REASON FOR EXAM F/U 01/30 RT OVARIAN CYST COMPARISON: None FINDINGS: The uterus is normal in size and echogenicity. There is no evidence of lobulation or contour abnormality. The adnexa reveal no evidence of mass, cysts, or other abnormality. No fluid is seen in the cul-de-sac. The uterus measures 11.6 x 2.4 x 5.4cm. The endometrium measures up to 4.5mm AP dimension. An IUD is seen in place. The right ovary measures 4.2 x 2.0 x 2.0cm. A small right ovarian cyst measures 1.9 x 1.4 x 1.4 cm. The left ovary measures 2.7 x 1.7 x 2.4cm. Normal spectral waveforms are seen in both ovaries. The bladder is unremarkable. IMPRESSION: 1. Small right ovarian cyst. 2. Ovaries otherwise unremarkable in appearance. Normal spectral waveforms. 3. No free pelvic fluid. Reported By Alber Ortiz MD on 04/23/20 8955 Signed By Alber Ortiz MD on 04/23/20 1348 Date Time CC: Alber Ortiz MD; Zabrina Liu Techn: FREST Trans Dt/Tm: Trans by: DT Prt Dt/Tm: : Total DLP = 0.00 mGy-cm : Total Radiation Dose = 0.0000 mSv Lifetime Dose: 16.9050 mSv Radiology Report May 30, 2020 2:35pm Alber Ortiz MD completed [facility] [address] [place] [id number] [phone] NAME SEX PT STATUS ACCOUNT NUMBER AMALIA NAVARRO LM REG REF [id number] ORDERING PHYSICIAN LOCATION MEDICAL RECORD NO. Nate Granger II, MD RAD [id number] ATTENDING PHYSICIAN DATE OF DATE OF EXAM/TIME Zabrina Liu RPA 1988 05/30/20 / 1241 TYPE / EXAM Xray Barium enema-SINGLE CONTR REASON FOR EXAM Lower Abdominal Pain COMPARISON: None FINDINGS: Vice President radiograph of the abdomen displays an unremarkable intestinal gas pattern. Free retrograde passage of barium is seen from the rectum to cecum. The colonic mucosa shows no evidence of ulceration or stricture. However, owing to incomplete insufflation of the colon, the mucosa, itself is not optimally v isualized. There is no evidence of obstruction or annular constricting mass lesion. No definite polypoid filling defects are noted. IMPRESSION Somewhat suboptimal study with no significant abnormalities noted. Reported By Alber Ortiz MD on 05/30/20 1435 Signed By Alber Ortiz MD on 05/30/20 1437 Date Time CC: Alber Ortiz MD; Zabrina Liu Techn: MORSA Trans Dt/Tm: Trans by: DT Prt Dt/Tm: [id number]: Total DLP = 0.00 mGy-cm Fluoroscopy Time (in secs): Health Concerns Health Concerns may be documented in an alternate section. Advance Directives Advance Directive Response Recorded Date/Time Advanced Directive No Brenton garcia 2020 2:46pm Advance Directives on File or in chart? No November 17, 2020 2:46pm Does Patient have a DNR? No November 17, 2020 2:46pm Healthcare Proxy No Dexter sriram 2020 2:46pm Health Care Proxy Name Triston Navarro November 17, 2020 2:46pm Health Care Proxy Phone Number [phone] November 17, 2020 2:46pm Living Will No November 172020 2:46pm Power of Pay Station Department Manager No Santino ming 2020 2:46pm Chief Complaint and Reason for Visit Chief Complaint Pelvic pain PELVIC PAIN,R10.2,Z12.4 Pelvic Pain Follow-up IUD Placement Z30.432 IUD Check ABDOMINAL PAIN Medication check R10.2 OVARIAN CYST Pelvic Pain Follow-up CHANGE IN BOWEL HABITS,R10.2,R19.4 Test result Hospital Discharge Follow-up Reason for Visit Hemorrhagic cysts o f both ovaries Encounter for removal and reinsertion of IUD Pelvic pain Pelvic pain PID (pelvic inflammatory disease) ISRAEL positive Rosendo's thyroiditis Weight gain, abnormal Polycystic ovaries Endometriosis determined by laparoscopy History of chronic cystitis Educated about management of weight Endometriosis determined by laparoscopy History of chronic cystitis Pelvic pain ISRAEL positive Dysuria Rosendo's thyroiditis History of chronic cystitis PFO (patent foramen ovale) Splenic infarct Migraine with aura and without status migrainosus, not intractable SLE (systemic lupus erythematosus) Encounters Encounter Location(s) Ar rival/Admit Date Discharge/Depart Date Provider(s) Departed Physician/Provider Office Visit [facility] January 22, 2020 1:30pm January 22, 2020 2:38pm Marito cooper MD Registered Referred [facility]-Ultrasound January 22, 2020 2:43pm Marito Stapleton MD Departed Physician/Provider Office Visit [facility] January 29, 2020 1:03pm January 29, 2020 1:42pm Zev smith DO Departed Physician/Provider Office Visit [facility] February 01, 2020 9:55am February 01, 2020 10:51am Marito loya MD Registered Referred [facility]-Lab Drop Off February 01, 2020 10:30am Marito Stapleton MD Departed Physician/Provider Office Visit [facility] March 07, 2020 8:56am March 07, 2020 9:27am Marito cooper MD Registered Referred [facility]-Lab Drop Off March 07, 2020 11:05am Marito Stapleton MD Departed Emergency [facility]-Emergency Room ER March 19, 2020 3:29pm March 19, 2020 5:39pm null Departed Physician/Provider Office Visit [facility] April 02, 2020 9:02am April 02, 2020 10:29am Nate owens II, MD Registered Referred [facility]-Laboratory April 02, 2020 10:34am Nate Granger II, MD Registered Referred [facility]-Ultrasound April 23, 2020 10:58am Nate Granger II, MD Departed Physician/Provider Office Visit [facility] May 28, 2020 10:05am May 28, 2020 10:51am Nate nick II, MD Registered Referred [facility]-Radiology May 30, 2020 12:16pm Nate Granger II, MD Departed Physician/Provider Office Visit [facility] June 18, 2020 10:48am June 18, 2020 11:57am Nate celmente II, MD Departed Physician/Provider Office Visit [facility] November 19, 2020 8:20am November 19, 2020 9:50am Amalia rollins NP Recent Diagnosis Onset Date Hemorrhagic cysts of both ovaries Encounter for removal and reinsertion of IUD Pelvic pain Pelvic pain PID (pelvic inflammatory disease) ISRAEL positive Rosendo's thyroiditis Weight gain, abnormal Polycystic ovaries Endometriosis determined by laparoscopy History of chronic cystitis Educated about management of weight Endometriosis determined by laparoscopy History of chronic cystitis Pelvic pain ISRAEL positive Dysuria Rosendo's thyroiditis History of chronic cystitis PFO (patent foramen ovale) Splenic infarct Migraine with aura and without status mi grainosus, not intractable March 11, 2016 SLE (systemic lupus erythematosus) F [facility] 2016 Assessments Diagnosis Onset Date Res olution Status Hemorrhagic cysts of both ovaries acute Encounter for removal and reinsertion of IUD acute Pelvic pain acute Pelvic pain acute PID (pelvic inflammatory disease) acute ISRAEL positive acute Rosendo's thyroiditis acute Weight gain, abnormal acute Polycystic ovaries chronic Endometriosis determined by laparoscopy acute History of chronic cystitis acute Educated about management of weight acute Endometriosis determined by laparoscopy acute History of chronic cystitis acute Pelvic pain acute ISRAEL positive acute Dysuria acute Rosendo's thyroiditis acute History of chronic cystitis acute PFO (patent foramen ovale) acute Splenic infarct acute Migraine with aura and without status mi grainosus, not intractable March 11, 2016 chron ic SLE (systemic lupus erythematosus) F [facility] 2016 chronic Family History Relationship Condition A ge at Onset Recorded Date/Time Not Specified Systemic lupus erythematosus Unknown Depression Unknown Transient ischemic attack Unknown Not Specified Type 2 diabetes mellitus Unknown Not Specified Systemic lupus erythematosus Unknown Rosendo's thyroiditis Unknown Not Specified Hypertension Unknown Not Specified Cardiac disease Unknown Hypertension Unknown Functional Status No Functional Status information available Goals Goals may be documented in an alternate section. Immunizations Immunization Event Date Not Given Reason Dose Number [employer] Lot Number Vaccine Information Statement (VIS) Deta il pneumococcal conjugate PCV 13 April 152019 Patient refused influenza vaccine, inactivated Septe mber 2013 influenza vaccine, inactivated Septe mber 2013 [id number] tetanus, diphtheria, acell pertussis 7yrs &up January 15, 2014 Mental Status Observation Response Polo e Recorded Impairments No impairments or barriers November 17, 2020 2:46pm Medical Equipment No Medical Equipment Information available Insurance Providers Guarantor AMALIA GU MONA Address [address] [place] [address] Contact Info. Home Phone: Payer Policy Id Coverage Id Subscriber's Name Subscriber Id Effective Date Expiration Date BC/BS [facility] [id number] AMALIA GU [place] [id number] [facility] CLAIM SERVICES [id number] AMALIA NAVARRO [id number] [facility] [id number] AMALIA CHAOMONS [id number] MEDICAID OTHER INSURANCES [id number] AMALIA NAVARRO [id number] Self Pay Self N/A [employer] MEDICAID [id number] AMALIA NAVARRO [id number] Plan of Treatment SANDIE 1. Mirena IUD in situ. 1. Pelvic pain: Possibly PID. 2. Doxycycline 100 mg p.o. twice daily x14 days. Flagyl 500 mg p.o. twice cherelle y x14 days. Diflucan 150 mg p.o. weekly x2, refill x3. 3. Patient has a history of endometriosis and pelvic adhesions, which was diagn osed 9 years ago, at the time of a left ectopic salpingectomy. If there is no change in pelvic pain with Doxycycline/Flagyl, may try patient on Lupron x3-6 months. Will leave IUD in situ during that time. 4. Increasing dyspareunia over the past few months. History of left ovarian cy st. Will do pelvic sonogram at next visit. 1. Mirena IUD removed without complication. Patient had to be instrumented 3 t imes to get IUD out, so to discharge home on Doxycycline, because of risk of endometritis. 2. Doxycycline 100 mg p.o. twice daily x7 days. Diflucan 150 mg p.o. weekly x1 , refill x2. Old Mirena IUD sent for culture. 3. New Mirena IUD placed in the uterus without complication. 4. Return to office in 4 weeks to check IUD placement. 1. History of chronic pelvic pain. 2. Sonogram diagnosis of right ovarian cyst, small. 3. History of endometriosis diagnosed in 2010. 4. To give Mobic 15 mg daily x3 days each month, to see if it will help chronic pelvic pain. 5. If pain is not resolved in 2 to 3 months, to place on Lupron Depot IM q. mon thly for 6 months. Explained how Lupron works. H/O right sided pelvic pain. Right ovarian cyst. No need for F/U. Can discontinue cipro since urine cx was negative. Discussed possible treatment with progestins(has H/O migraines with aura) ie: de po provera or micronor for possible endometriosis. Risks and benefits discussed. She has appt for mirena replacement but will think about alternatives. 1. Pelvic pain: Possibly due to hemorrhagic ovarian cyst. Rule out UTI. 2. Labs: UA/C&S, Pap, GC/chlamydia. 3. Pelvic sonogramTV/AB. 1. Cystic ovarian mass in adnexa, predominantly in left adnexa into the midline . 2. Rule out ovarian cyst. 3. Pelvic sonogramTV/AB. Future Tests Future scheduled test information is unavailable Pending Tests Pending diagnostic test information is unavailable Future Visits Future appointment information is unavailable Referrals to Other Providers Reason for Referral Referral Start Date Provider Provider Conta ct Information Provider Address D73.5 - Infarction of spleen November 19, 2020 formerly [facility] [address]; [address] [facility] [address] D73.5 - Infarction of spleen,E06.3 - Aut oimmune thyroiditis,M32.9 - Systemic lupus erythematosus, unspecified,G43.109 - Migraine with aura, not intractable, without status migrainosus November 19, 2020 Gisselle Ji [facility] [address] [facility] [address] G43.109 - Migraine with aura, not intractable, without status migrainosus November 19, 2020 Kevin Parker [facility] [address] [facility] [address] D73.5 - Infarction of spleen,Q21.1 - Atrial septal defect Ja radha 2020 Riaz Butler [facility] [address] Z87.448 - Personal history of other diseases of urinar y system November 19, 2020 Mary Belcher [facility] [address] [facility] [address] Future Procedures Future procedure information is unavailable Future Medications Future medication information is unavailable Patient Instructions Abdominal Pain (ED) Social History Smoking Status Status Date of Observation Never smoker November 17, 2020 2:46p m Observation Status Date of Observation Not November 17, 2020 Observation Status Observation Response Polo e of Response Smoking Status Never smoker November 17, 2020 2:46pm Alcohol Use No November 172020 2:46pm Substance Use No November 17, 2020 2:46pm Assigned Sex Female Vital Signs Vital Reading Result Ref erence Range Collection Date/Time Height 64 [in_i] January 22, 2020 2:38pm Weight 220.02 [lb_av] January 22, 2020 2:38pm Body Temperature 99.0 [degF] 97.6-99.5 January 22, 2020 2:38pm Heart Rate 89 /min 60-100 January 22, 2020 2:38pm Respiratory rate 18 /min 12-24 January 22, 2020 2:38pm Oxygen saturation by Pulse oximetry 98 % 95- 100 January 22, 2020 2:38pm BP Systolic 134 mm[Hg] January 22, 2020 2:38pm BP Diastolic 84 mm[Hg] January 22, 2020 2:38pm BMI (Body Mass Index) 37.8 kg/m2 January 22, 2020 2:38pm Height 64 [in_i] January 29, 2020 2:09pm Weight 219.02 [lb_av] January 29, 2020 2:09pm Body Temperature 98.6 [degF] 97.6-99.5 January 29, 2020 2:09pm Heart Rate 78 /min 60-100 January 29, 2020 2:09pm Oxygen saturation by Pulse oximetry 98 % 95- 100 January 29, 2020 2:09pm BP Systolic 136 mm[Hg] January 29, 2020 2:09pm BP Diastolic 82 mm[Hg] January 29, 2020 2:09pm BMI (Body Mass Index) 37.5 kg/m2 January 29, 2020 2:09pm Height 64 [in_i] February 01, 2020 11:04am Weight 225.00 [lb_av] February 01, 2020 11:04am Body Temperature 98.3 [degF] 97.6-99.5 February 01, 2020 11:04am Heart Rate 78 /min 60-100 February 01, 2020 11:04am Respiratory rate 18 /min 12-24 February 01, 2020 11:04am Oxygen saturation by Pulse oximetry 97 % 95- 100 February 01, 2020 11:04am BP Systolic 142 mm[Hg] February 01, 2020 11:04am BP Diastolic 98 mm[Hg] February 01, 2020 11:04am BMI (Body Mass Index) 38.6 kg/m2 February 01, 2020 11:04am Height 64 [in_i] March 07, 2020 10:01am Weight 223.50 [lb_av] March 07, 2020 10:01am Body Temperature 98.2 [degF] 97.6-99.5 March 07, 2020 10:01am Heart Rate 89 /min 60-100 March 07, 2020 10:01am Respiratory rate 18 /min -March 07, 2020 10:01am Oxygen saturation by Pulse oximetry 97 % 95- 100 March 07, 2020 10:01am BP Systolic 142 mm[Hg] March 07, 2020 10:01am BP Diastolic 88 mm[Hg] March 07, 2020 10:01am BMI (Body Mass Index) 38.3 kg/m2 March 07, 2020 10:01am Height 64 [in_i] March 19, 2020 4:36pm Weight 226.00 [lb_av] March 19, 2020 4:36pm Body Temperature 97.7 [degF] 97.6-99.5 March 19, 2020 6:38pm Heart Rate 68 /min 60-100 March 19, 2020 6:38pm Respiratory rate 16 /min -March 19, 2020 6:38pm Oxygen saturation by Pulse oximetry 99 % 95- 100 March 19, 2020 6:38pm BP Systolic 136 mm[Hg] March 19, 2020 6:38pm BP Diastolic 79 mm[Hg] March 19, 2020 6:38pm Height 64 [in_i] April 02, 2020 10:22am Weight 225.37 [lb_av] April 02, 2020 10:22am Body Temperature 98.7 [degF] 97.6-99.5 April 02, 2020 10:22am Heart Rate 81 /min 60-100 April 02, 2020 10:22am Respiratory rate 16 /min -April 02, 2020 10:22am Oxygen saturation by Pulse oximetry 98 % 95- 100 April 02, 2020 10:22am BP Systolic 141 mm[Hg] April 02, 2020 10:22am BP Diastolic 84 mm[Hg] April 02, 2020 10:22am BMI (Body Mass Index) 38.7 kg/m2 April 02, 2020 10:22am Height 64 [in_i] May 28, 2020 11:17am Weight 219.12 [lb_av] May 28, 2020 11:17am Body Temperature 98.6 [degF] 97.6-99.5 May 28, 2020 11:17am Heart Rate 70 /min 60-100 May 28, 2020 11:17am Respiratory rate 16 /min 12-24 May 28, 2020 11:17am Oxygen saturation by Pulse oximetry 97 % 95- 100 May 28, 2020 11:17am BP Systolic 123 mm[Hg] May 28, 2020 11:17am BP Diastolic 86 mm[Hg] May 28, 2020 11:17am BMI (Body Mass Index) 37.5 kg/m2 May 28, 2020 11:17am Height 64 [in_i] June 18, 2020 12:26pm Weight 215.00 [lb_av] June 18, 2020 12:26pm Body Temperature 98.1 [degF] 97.6-99.5 June 18, 2020 12:26pm Heart Rate 73 /min 60-100 June 18, 2020 12:26pm Respiratory rate 16 /min -June 18, 2020 12:26pm Oxygen saturation by Pulse oximetry 100 % 95-100 June 18, 2020 12:26pm BP Systolic 128 mm[Hg] June 18, 2020 12:26pm BP Diastolic 84 mm[Hg] June 18, 2020 12:26pm BMI (Body Mass Index) 36.8 kg/m2 June 18, 2020 12:26pm Height 64 [in_i] November 19, 2020 8:22am Weight 223.00 [lb_av] November 19, 2020 8:22am Body Temperature 98.1 [degF] 97.6-99.5 November 19, 2020 8:22am Heart Rate 81 /min 60-100 November 19, 2020 8:22am Respiratory rate 18 /min -November 19, 2020 8:22am Oxygen saturation by Pulse oximetry 96 % 95- 100 November 19, 2020 8:22am BP Systolic 138 mm[Hg] November 19, 2020 8:22am BP Diastolic 86 mm[Hg] November 19, 2020 8:22am BMI (Body Mass Index) 38.2 kg/m2 November 19, 2020 8:22am
--- OUTSIDE RECORDS SUMMARY | 2020-12-18 21:12 | CCD ---
Author Author [facility] Organization [facility] Address Unknown Phone Unavailable Care Team Providers Care Database Report Writer Name Role Phone Brooks Wilkinson Unavailable PROBLEMS Type Condition ICD9-CM Code [id number] Code Onset Dates Condition S tatus SNOMED Code Notes Problem PCOS (polycystic ovarian syndrome) E28.2 Activ e [id number] ALLERGIES Allergen (clinical drug ingredient) Drug/Non Drug Allergy do cumented on EMR Reaction Allergy Type Onset Date Status Sulfacet-R Unknown Drug Allergy Active adhesives Unknown Non Drug Allergy 08/15/2020 Active ENCOUNTERS from 1988 to 2020-09-30 Encounter Location Date Provider Diagnosis [facility] [address] [place] [id number] Aug, Brooks Wilkinson Aftercare following surgery of the genitourinary system Z48.816 IMMUNIZATIONS No Information SOCIAL HISTORY Tobacco Use: Social History Observation Description Date Details (start date - stop date) Never Smoker Sex Assigned At : Social History Observation Description Sex Assigned At Unknown Alcohol Screening: Question Answer Notes Did you have a drink containing alcohol in the past year? No Points 0 Interpretation Negative Tobacco Use: Question Answer Notes Are you a: never smoker REASON FOR REFERRAL No Information VITAL SIGNS Weight 217 lbs Aug, Height 64 in Aug, BMI 37.24 kg/m2 Aug, Blood pressure systolic 132 mm Hg Aug, Blood pressure diastolic 78 mm Hg Aug, MEDICATIONS Medication SIG (Take, Route, Frequency, Duration) Notes Start Da te End Date Status Phentermine-Topiramate 11.25-69 MG 1 capsule Orally Once a day Not-Taking Multivitamin - 1 tablet Orally Once a day Active PROCEDURES No Information RESULTS No Results REASON FOR VISIT 6 WK PO MEDICAL (GENERAL) HISTORY Type Description Date Medical History lupus Medical History hashimotos Medical History PCOS Medical History hypothyroid Surgical History RALH, right salpingectomy, cystoscopy Surgical History T&A 1999 Surgical History plantars wart removed under anesthesia 2 002 Surgical History Left salpingectomy- ruptured ectopic 201 1 Surgical History cholecystectomy 2018 Goals Section No Information Health Concerns No Information MEDICAL EQUIPMENT No Information MENTAL STATUS No Information FUNCTIONAL STATUS No Information ASSESSMENTS Encounter Date Diagnosis Assessment Notes Treatment Notes Treatm ent Clinical Notes Aug, Aftercare following surgery of the genitourinary system (ICD-10 - Z48.816) She has been recovering well. No clinical evidence of infection, severe anemia, or surgical wound disruption. Reviewed routine postoperative precautions (bleeding, infection, fever, pain). Patient may increase her activity level, but she must continue vaginal rest until 8 weeks postop. PLAN OF TREATMENT Treatment Notes Assessment Notes Clinical Notes Aftercare following surgery of the genitourinary system She has been recovering well. No clinical evidence of infection, severe anemia, or surgical wound disruption. Reviewed routine postoperative precautions (bleeding, infection, fever, pain). Patient may increase her activity level, but she must continue vaginal rest until 8 weeks postop. Next Appt Details prn, 1 Year Reason: Provider Name:Miranda Castelan, 2020-09 02:00:00 PM, [address] [place] [address], [id number], Insurance Providers Payer Name Payer Address Payer Phone Insured Name Patient Relati onship to Insured Coverage Start Date Coverage End Date [facility] [id number] [facility] [id number] AMALIA DUNN LM self
--- OUTSIDE RECORDS SUMMARY | 2020-12-18 21:12 | CCD | Continuity of Care Document ---
Author Organization Unknown Address Unknown Phone Unavailable Care Team Providers Care Chief Radiologic Technologist Name Role Phone Dudley Murillo DO [facility] [phone] Zabrina Liu [facility] [phone] Miranda Castelan MD [facility] [phone] Problems Active Problems Provider Date Chronic nonalcoholic [...] Note CMP 10/01/2020 [facility] - not interfaced (702)- - Albumin Serum/Plasma 4.1 Alt - SGPT [...] 38.3 Procedures Date Code Description Status 10/24/2020 81590 ECG 12-Lead Completed Medical Devices Description No [...] (change of) liver, not els ewhere classified Crikcet Goldstein MD 10/24/2020 Z71.3 Dietary counseling and [...]
[2020-12-18] MEDS ORDERED: TOPI50TA9 (21:13)
[2020-12-18] MEDS ORDERED: ASPI-1 PO (21:13)
--- OUTSIDE RECORDS SUMMARY | 2020-12-18 21:14 | CCD ---
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 Unavailable Unavailable Granger II, Luis Miguel Sullivan M.D. Unavailable Unavailable Granger II, Luis Miguel Sullivan M.D. Unavailable Unavailable Granger II, Luis Miguel Sullivan M.D. Unavailable Unavailable Granger II, Luis Miguel Sullivan M.D. Unavailable Unavailable Granger II, Luis Miguel Sullivan M.D. Unavailable Unavailable Granger II, Luis Miguel Sullivan M.D. Unavailable Unavailable Granger II, Luis Miguel Sullivan M.D. Unavailable Unavailable Granger II, Luis Miguel Sullivan M.D. Unavailable Unavailable Granger II, Luis Miguel Sullivan M.D. Unavailable Unavailable Granger II, Luis Miguel Sullivan M.D. Unavailable Unavailable Granger II, Luis Miguel Sullivan M.D. Unavailable Unavailable Granger II, Luis Miguel Sullivan M.D. Unavailable Unavailable Granger II, Luis Miguel Sullivan M.D. Unavailable Unavailable Granger II, Luis Miguel Sullivan M.D. Unavailable Unavailable Granger II, Luis Miguel Sullivan M.D. Unavailable Unavailable Granger II, Luis Miguel Sullivan M.D. Unavailable Unavailable Granger II, A Nate Naidu Unavailable Unavailable Granger II, A Nate Naidu Unavailable Unavailable Granegr II, A Nate Naidu Unavailable Unavailable Granger II, A Nate Naidu Unavailable Unavailable Granger II, A Nate Naidu Unavailable Unavailable Granger II, A Nate Naidu Unavailable Unavailable Granger II, A Nate Naidu Unavailable Unavailable Granger II, A Nate Naidu Unavailable Unavailable Granger II, A Nate Naidu Unavailable Unavailable Granger II, A Nate Naidu Unavailable Unavailable Granger II, A aNte Naidu Unavailable Unavailable Granger II, A Nate Naidu Unavailable Unavailable Granger II, A Nate Naidu Unavailable Unavailable Granger II, A Nate Naidu Unavailable Unavailable Granger II, A Nate Naidu Unavailable Unavailable Granger II, A Nate Naidu Unavailable Unavailable Granger II, A Nate Naidu Unavailable Unavailable Granger II, A Nate Naidu Unavailable Unavailable Granger II, A Nate Naidu Unavailable Unavailable Granger II, A Nate Naidu Unavailable Unavailable Granger II, A Nate Naidu Unavailable Unavailable Granger II, A Nate Naidu Unavailable Unavailable Granger II, A Nate Naidu Unavailable Unavailable Granger II, A Nate Naidu Unavailable Unavailable Granger II, A Nate Naidu Unavailable Unavailable Granger II, A Nate Naidu Unavailable Unavailable Granger II, A Nate Naidu Unavailable Unavailable Granger II, A Nate Naidu Unavailable Unavailable Granger II, A Nate Naidu Unavailable Unavailable Granger II, A Nate Naidu Unavailable Unavailable Granger II, A Nate Naidu Unavailable Unavailable Granger II, A Nate Naidu Unavailable Unavailable Granger II, A Nate Naidu Unavailable Unavailable Granger II, A Nate Naidu Unavailable Unavailable Granger II, A Nate Naidu Unavailable Unavailable Granger II, A Nate Naidu Unavailable Unavailable Granger II, A Nate Naidu Unavailable Unavailable Breslau, Davide DO Unavailable Unavailable [place], Davide DO Unavailable Unavailable [place], Davide DO Unavailable Unavailable [place], Davide DO Unavailable Unavailable [place], Davide DO Unavailable Unavailable [place], Davide DO Unavailable Unavailable [place], Davide DO Unavailable Unavailable [place]au, Davide DO Unavailable Unavailable [place]au, Davide DO Unavailable Unavailable B[place]lau, Davide DO Unavailable Unavailable Breslau, Davide DO Unavailable Unavailable Breslau, Davide DO Unavailable Unavailable Breslau, Davide DO Unavailable Unavailable B[place]lau, Davide DO Unavailable Unavailable [place], Davide DO Unavailable Unavailable [place], Davide DO Unavailable Unavailable B[place]au, Davide DO Unavailable Unavailable [place], Davide DO Unavailable Unavailable [place], Davide DO Unavailable Unavailable [place], Davide DO Unavailable Unavailable [place], Davide DO Unavailable Unavailable [place], Davide DO Unavailable Unavailable [place], Davide DO Unavailable Unavailable LYNETTE REED MD Unavailable Unavailable LYNETTE REED MD Unavailable Unavailable LYNETTE REED MD Unavailable Unavailable LYNETTE REED MD Unavailable Unavailable LYNETTE REED MD Unavailable Unavailable LYNETTE REED MD Unavailable Unavailable LYNETTE REED MD Unavailable Unavailable LYNETTE REED MD Unavailable Unavailable LYNETTE REED MD Unavailable Unavailable LYNETTE REED MD Unavailable Unavailable LYNETTE REED MD Unavailable Unavailable LYNETTE REED MD Unavailable Unavailable LYNETTE REED MD Unavailable Unavailable LYNETTE REED MD Unavailable Unavailable LYNETTE REED MD Unavailable Unavailable LYNETTE REED MD Unavailable Unavailable LYNETTE REED MD Unavailable Unavailable LYNETTE REED MD Unavailable Unavailable LYNETTE REED MD Unavailable Unavailable LYNETTE REED MD Unavailable Unavailable LYNETTE REED MD Unavailable Unavailable LYNETTE REED MD Unavailable Unavailable LYNETTE REED MD Unavailable Unavailable LYNETTE REED MD Unavailable Unavailable LYNETTE REED MD Unavailable Unavailable LYNETTE REED MD Unavailable Unavailable LYNETTE REED MD Unavailable Unavailable LYNETTE REED MD Unavailable Unavailable LYNETTE REED MD Unavailable Unavailable LYNETTE REED MD Unavailable Unavailable LYNETTE REED MD Unavailable Unavailable LYNETTE REED MD Unavailable Unavailable LYNETTE REED MD Unavailable Unavailable LYNETTE REED MD Unavailable Unavailable LYNETTE REED MD Unavailable Unavailable LYNETTE REED MD Unavailable Unavailable LYNETTE REED MD Unavailable Unavailable LYNETTE REED MD Unavailable Unavailable LYNETTE REED MD Unavailable Unavailable LYNETTE REED MD Unavailable Unavailable LYNETTE REED MD Unavailable Unavailable LYNETTE REED MD Unavailable Unavailable LYNETTE REED MD Unavailable Unavailable LYNETTE REED MD Unavailable Unavailable LYNETTE REED MD Unavailable Unavailable LYNETTE REED MD Unavailable Unavailable LYNETTE REED MD Unavailable Unavailable LYNETTE REED MD Unavailable Unavailable LYNETTE REED MD Unavailable Unavailable LYNETTE REED MD Unavailable Unavailable LYNETTE REED MD Unavailable Unavailable LYNETTE REED MD Unavailable Unavailable LYNETTE REED MD Unavailable Unavailable LYNETTE REED MD Unavailable Unavailable LYNETTE REED MD Unavailable Unavailable LYNETTE REED MD Unavailable Unavailable LYNETTE REED MD Unavailable Unavailable LYNETTE REED MD Unavailable Unavailable LYNETTE REED MD Unavailable Unavailable LYNETTE REED MD Unavailable Unavailable LYNETTE REED MD Unavailable Unavailable LYNETTE REED MD Unavailable Unavailable LYNETTE REED MD Unavailable Unavailable LYNETTE REED MD Unavailable Unavailable LYNETTE REED MD Unavailable Unavailable LYNETTE REED MD Unavailable Unavailable LYNETTE REED MD Unavailable Unavailable LYNETTE REED MD Unavailable Unavailable LYNETTE REED MD Unavailable Unavailable LYNETTE REED MD Unavailable Unavailable LYNETTE REED MD Unavailable Unavailable LYNETTE REED MD Unavailable Unavailable LYNETTE REED MD Unavailable Unavailable LYNETTE REED MD Unavailable Unavailable LYNETTE REED MD Unavailable Unavailable LYNETTE REED MD Unavailable Unavailable LYNETTE REED MD Unavailable Unavailable LYNETTE REED MD Unavailable Unavailable LYNETTE REED MD Unavailable Unavailable LYNETTE REED MD Unavailable Unavailable LYNETTE REED MD Unavailable Unavailable YLNETTE REED MD Unavailable Unavailable LYNETTE REED MD Unavailable Unavailable LYNETTE REED MD Unavailable Unavailable COLLINS SANCHEZ MD Unavailable Unavailable COLLINS SANCHEZ MD Unavailable Unavailable COLLINS SANCHEZ MD Unavailable Unavailable COLLINS SANCHEZ MD Unavailable Unavailable COLLINS SANCHEZ MD Unavailable Unavailable COLLINS SANCHEZ MD Unavailable Unavailable COLLINS SANCHEZ MD Unavailable Unavailable COLLINS SANCHEZ MD Unavailable Unavailable COLLINS SANCHEZ MD Unavailable Unavailable COLLINS SANCHEZ MD Unavailable Unavailable COLLINS SANCHEZ MD Unavailable Unavailable COLLINS SANCHEZ MD Unavailable Unavailable COLLINS SANCHEZ MD Unavailable Unavailable COLLINS SANCHEZ MD Unavailable Unavailable COLLINS SANCHEZ MD Unavailable Unavailable COLLINS SANCHEZ MD Unavailable Unavailable COLLINS SANCHEZ MD Unavailable Unavailable COLLINS SANCHEZ MD Unavailable Unavailable COLLINS SANCHEZ MD Unavailable Unavailable COLLINS SANCHEZ MD Unavailable Unavailable COLLINS SANCHEZ MD Unavailable Unavailable COLLINS SANCHEZ MD Unavailable Unavailable COLLINS SANCHEZ MD Unavailable Unavailable COLLINS SANCHEZ MD Unavailable Unavailable COLLINS SANCHEZ MD Unavailable Unavailable COLLINS SANCHEZ MD Unavailable Unavailable COLLINS SANCHEZ MD Unavailable Unavailable COLLINS SANCHEZ MD Unavailable Unavailable COLLINS SANCHEZ MD Unavailable Unavailable COLLINS SANCHEZ MD Unavailable Unavailable COLLINS SANCHEZ MD Unavailable Unavailable COLLINS SANCHEZ MD Unavailable Unavailable Simon MARTINEZ SCREENER PERFUMER-SCREW MACHINE OPERATOR-C Unavailable Unava ilable KOPIDLANSKYSimon SCREENER PERFUMER-SCREW MACHINE OPERATOR-C Unavailable Unava ilable KOPIDLRIKKIKYSimon SCREENER PERFUMER-SCREW MACHINE OPERATOR-C Unavailable Unava ilable KOPIDLANSKYSimon SCREENER PERFUMER-SCREW MACHINE OPERATOR-C Unavailable Unava ilable KOPIDLANSKYSimon SCREENER PERFUMER-SCREW MACHINE OPERATOR-C Unavailable Unava ilable KOPIDLANSKYSimon SCREENER PERFUMER-SCREW MACHINE OPERATOR-C Unavailable Unava ilable KOPIDLANSKYSimon SCREENER PERFUMER-SCREW MACHINE OPERATOR-C Unavailable Unava ilable KOPIDLRIKKIKYSimonIE SCREENER PERFUMER-SCREW MACHINE OPERATOR-C Unavailable Unava ilable KOPIDLANSKY, Simon HOLLAND SCREENER PERFUMER-SCREW MACHINE OPERATOR-C Unavailable Unava ilable KOPIDLANSKY, Simon HOLLAND SCREENER PERFUMER-SCREW MACHINE OPERATOR-C Unavailable Unava ilable KOPIDLANSKY, Simon HOLLAND SCREENER PERFUMER-SCREW MACHINE OPERATOR-C Unavailable Unava ilable KOPIDLANSKY, Simon HOLLAND APRN-SCREW MACHINE OPERATOR-C Unavailable Unava ilable KOPIDLANSKY, Simon HOLLAND SCREENER PERFUMER-SCREW MACHINE OPERATOR-C Unavailable Unava ilable KOPIDLANSKY, Simon HOLLAND SCREENER PERFUMER-SCREW MACHINE OPERATOR-C Unavailable Unava ilable KOPIDLANSKY, Simon HOLLAND SCREENER PERFUMER-SCREW MACHINE OPERATOR-C Unavailable Unava ilable KOPIDLANSKY, Simon HOLLAND APRN-SCREW MACHINE OPERATOR-C Unavailable Unava ilable KOPIDLANSKY, Simon HOLLAND SCREENER PERFUMER-SCREW MACHINE OPERATOR-C Unavailable Unava ilable KOPIDLANSKY, Simon HOLLAND APRN-SCREW MACHINE OPERATOR-C Unavailable Unava ilable KOPIDLANSKY, Simon HOLLAND SCREENER PERFUMER-SCREW MACHINE OPERATOR-C Unavailable Unava ilable KOPIDLANSKY, Simon HOLLAND SCREENER PERFUMER-SCREW MACHINE OPERATOR-C Unavailable Unava ilable KOPIDLANSKY, Simon HOLLAND SCREENER PERFUMER-SCREW MACHINE OPERATOR-C Unavailable Unava ilable KOPIDLANSKY, Simon HOLLAND SCREENER PERFUMER-SCREW MACHINE OPERATOR-C Unavailable Unava ilable Granger II, Luis Miguel Sullivan M.D. Unavailable Unavailable Granger II, Luis Miguel Sullivan M.D. Unavailable Unavailable Granger II, Luis Miguel Sullivan M.D. Unavailable Unavailable Granger II, Luis Miguel Sullivan M.D. Unavailable Unavailable Granger II, Luis Miguel Sullivan M.D. Unavailable Unavailable Granger II, Luis Miguel Sullivan M.D. Unavailable Unavailable Granger II, Luis Miguel Sullivan M.D. Unavailable Unavailable Granger II, Luis Miguel Sullivan M.D. Unavailable Unavailable Granger II, Luis Miguel Sullivan M.D. Unavailable Unavailable Granger II, Luis Miguel Sullivan M.D. Unavailable Unavailable Granger II, Luis Miguel Sullivan M.D. Unavailable Unavailable Granger II, Luis Miguel Sullivan M.D. Unavailable Unavailable Granger II, Luis Miguel Sullivan M.D. Unavailable Unavailable Granger II, Luis Miguel Sullivan M.D. Unavailable Unavailable Granger II, Luis Miguel Sullivan M.D. Unavailable Unavailable Granger II, A Nate Naidu Unavailable Unavailable Granger II, A Nate Naidu Unavailable Unavailable Granger II, A Nate Naidu Unavailable Unavailable Granger II, A Nate Naidu Unavailable Unavailable Granger II, A Nate Naidu Unavailable Unavailable Granger II, A Nate Naidu Unavailable Unavailable Granger II, A Nate Naidu Unavailable Unavailable Granger II, A Nate Naidu Unavailable Unavailable Granger II, A Nate Naidu Unavailable Unavailable Granger II, A Nate Naidu Unavailable Unavailable Granger II, A Nate Naidu Unavailable Unavailable Granger II, A Nate Naidu Unavailable Unavailable Granger II, A Nate Naidu Unavailable Unavailable Granger II, A Nate Naidu Unavailable Unavailable Granger II, A Nate Naidu Unavailable Unavailable Granger II, A Nate Naidu Unavailable Unavailable Granger II, A Nate Naidu Unavailable Unavailable Granger II, A Nate Naidu Unavailable Unavailable Granger II, A Nate Naidu Unavailable Unavailable Granger II, A Nate Naidu Unavailable Unavailable Granger II, A Nate Naidu Unavailable Unavailable Granger II, A Nate Naidu Unavailable Unavailable Granger II, A Nate Naidu Unavailable Unavailable Granger II, A Nate Naidu Unavailable Unavailable Granger II, A Nate Naidu Unavailable Unavailable Granger II, A Nate Naidu Unavailable Unavailable Granger II, A Nate Naidu Unavailable Unavailable Granger II, A Nate Naidu Unavailable Unavailable Granger II, A Nate Naidu Unavailable Unavailable Granger II, A Nate Naidu Unavailable Unavailable Granger II, A Nate Naidu Unavailable Unavailable Granger II, A Nate Naidu Unavailable Unavailable Granger II, A Nate Naidu Unavailable Unavailable Granger II, A Nate Naidu Unavailable Unavailable Granger II, A Nate Naidu Unavailable Unavailable Granger II, A Nate Naidu Unavailable Unavailable Granger II, A Nate Naidu Unavailable Unavailable Granger II, A Nate Naidu Unavailable Unavailable Granger II, A Nate M.D. Unavailable Unavailable Tao, D Abner PA Unavailable Unavailable Tao, D Abner PA Unavailable Unavailable Tao, D Abner PA Unavailable Unavailable Tao, D Abner PA Unavailable Unavailable Tao, D Abner PA Unavailable Unavailable Tao, D Abner PA Unavailable Unavailable Tao, D Abner PA Unavailable Unavailable Tao, D Abner PA Unavailable Unavailable Tao, D Abner PA Unavailable Unavailable Tao, D Abner PA Unavailable Unavailable Tao, D Abner PA Unavailable Unavailable Tao, D Abner PA Unavailable Unavailable Tao, D Abner PA Unavailable Unavailable Tao, D Abner PA Unavailable Unavailable Tao, D Abner PA Unavailable Unavailable Tao, D Abner PA Unavailable Unavailable Tao, D Abner PA Unavailable Unavailable Tao, D Abner PA Unavailable Unavailable Tao, D Abner PA Unavailable Unavailable Tao, D Abner PA Unavailable Unavailable Tao, D Abner PA Unavailable Unavailable Cordaro Zev DO Unavailable Unavailable ANTECOL, Geneva BUTLER MD Unavailable Unavailable ANTECOL, Geneva BUTLER MD Unavailable Unavailable ANTECOL, Geneva BUTLER MD Unavailable Unavailable ANTECOL, Geneva BUTLER MD Unavailable Unavailable ANTECOL, Geneva BUTLER MD Unavailable Unavailable ANTECOL, Geneva BUTLER MD Unavailable Unavailable ANTECOL, Geneva BUTLER MD Unavailable Unavailable ANTECOL, Geneva BUTLER MD Unavailable Unavailable ANTECOL, Geneva BUTLER MD Unavailable Unavailable ANTECOL, Geneva BUTLER MD Unavailable Unavailable ANTECOL, Geneva BUTLER MD Unavailable Unavailable ANTECOL, Geneva BUTLER MD Unavailable Unavailable ANTECOL, Geneva BUTLER MD Unavailable Unavailable ANTECOL, Gneeva BUTLER MD Unavailable Unavailable ANTECOL, Geneva BUTLER MD Unavailable Unavailable ANTECOL, Geneva BUTLER MD Unavailable Unavailable ANTECOL, Geneva BUTLER MD Unavailable Unavailable ANTECOL, Geneva BUTLER MD Unavailable Unavailable ANTECOL, Geneva BUTLER MD Unavailable Unavailable ANTECOL, Geneva BUTLER MD Unavailable Unavailable ANTECOL, Geneva BUTLER MD Unavailable Unavailable ANTECOL, Geneva BUTLER MD Unavailable Unavailable ANTECOL, Geneva BUTLER MD Unavailable Unavailable ANTECOL, Geneva BUTLER MD Unavailable Unavailable ANTECOL, Geneva BUTLER MD Unavailable Unavailable ANTECOL, Geneva BUTLER MD Unavailable Unavailable ANTECOL, Geneva BUTLER MD Unavailable Unavailable ANTECOL, Geneva BUTLER MD Unavailable Unavailable ANTECOL, Geneva BUTLER MD Unavailable Unavailable ANTECOL, Geneva BUTLER MD Unavailable Unavailable ANTECOL, Geneva BUTLER MD Unavailable Unavailable ANTECOL, Geneva BUTLER MD Unavailable Unavailable ANTECOL, Geneva BUTLER MD Unavailable Unavailable ANTECOL, Geneva BUTLER MD Unavailable Unavailable ANTECOL, Geneva BUTLER MD Unavailable Unavailable ANTECOL, Geneva BUTLER MD Unavailable Unavailable ANTECOL, Geneva BUTLER MD Unavailable Unavailable ANTECOL, Geneva BUTLER MD Unavailable Unavailable ANTECOL, Geneva BUTLER MD Unavailable Unavailable ANTECOL, Geneva BUTLER MD Unavailable Unavailable ANTECOL, Geneva BUTLER MD Unavailable Unavailable ANTECOL, Geneva BUTLER MD Unavailable Unavailable ANTECOL, Geneva BUTLER MD Unavailable Unavailable ANTECOL, Geneva BUTLER MD Unavailable Unavailable ANTECOL, Geneva BUTLER MD Unavailable Unavailable ANTECOL, Geneva BUTLER MD Unavailable Unavailable ANTECOL, Geneva BUTLER MD Unavailable Unavailable ANTECOL, Geneva BUTLER MD Unavailable Unavailable ANTECOL, Geneva BUTLER MD Unavailable Unavailable ANTECOL, Geneva BUTLER MD Unavailable Unavailable ANTECOL, Geneva BUTLER MD Unavailable Unavailable ANTECOL, Geneva BUTLER MD Unavailable Unavailable ANTECOL, Geneva BUTLER MD Unavailable Unavailable ANTECOL, Geneva BUTLER MD Unavailable Unavailable ANTECOL, Geneva BUTLER MD Unavailable Unavailable RINKU, MORGAN SOLIS Unavailable Unavailable RINKU, MORGAN SOLIS Unavailable Unavailable RINKU, MORGAN SOLIS Unavailable Unavailable RINKU, MORGAN SOLIS Unavailable Unavailable RINKU, MORGAN SOLIS Unavailable Unavailable RINKUMORGAN MD Unavailable Unavailable RINKUMORGAN MD Unavailable Unavailable RINKUMORGAN MD Unavailable Unavailable RINKUMORGAN MD Unavailable Unavailable RINKUMORGAN MD Unavailable Unavailable RINKUMORGAN MD Unavailable Unavailable RINKUMORGAN MD Unavailable Unavailable RINKUMORGAN MD Unavailable Unavailable RINKUMORGAN MD Unavailable Unavailable RINKUMORGAN MD Unavailable Unavailable RINKUMORGAN MD Unavailable Unavailable RINKU, MORGAN SOLIS Unavailable Unavailable RINKU, MORGAN SOLIS Unavailable Unavailable RINKU, MORGAN SOLIS Unavailable Unavailable RINKUMORGAN MD Unavailable Unavailable RINKUMORGAN MD Unavailable Unavailable RINKUMORGAN MD Unavailable Unavailable RINKUMORGAN MD Unavailable Unavailable RINKUMORGAN MD Unavailable Unavailable RINKUMORGAN MD Unavailable Unavailable RINKUMORGAN MD Unavailable Unavailable RINKUMORGAN MD Unavailable Unavailable RINKUMORGAN MD Unavailable Unavailable RINKUMORGAN MD Unavailable Unavailable RINKUMORGAN MD Unavailable Unavailable RINKUMORGNA MD Unavailable Unavailable RINKUMORGAN MD Unavailable Unavailable RINUKMORGAN MD Unavailable Unavailable RINKU, MORGAN SOLIS Unavailable Unavailable RINKU, MORGAN SOLIS Unavailable Unavailable RINKU, MORGAN SOLIS Unavailable Unavailable RINKU, MORGAN SOLIS Unavailable Unavailable RINKU, MORGAN SOLIS Unavailable Unavailable RINKUMORGAN MD Unavailable Unavailable RINKU, MORGAN SOLIS Unavailable Unavailable Taryn Encarnacion MD Unavailable Unavailable Taryn Encarnacion MD Unavailable Unavailable Shashank, Taryn MD Unavailable Unavailable Shashank, Taryn MD Unavailable Unavailable Shashank, Taryn MD Unavailable Unavailable Shashank, Taryn MD Unavailable Unavailable Shashank, Taryn MD Unavailable Unavailable Shashank, Taryn MD Unavailable Unavailable Shashank, Taryn MD Unavailable Unavailable Shashank, Taryn MD Unavailable Unavailable Shashank, Taryn MD Unavailable Unavailable Shashank, Taryn MD Unavailable Unavailable Shashank, Taryn MD Unavailable Unavailable Shashank, Taryn MD Unavailable Unavailable Shashank, Taryn MD Unavailable Unavailable Shashank, Taryn MD Unavailable Unavailable Shashank, Taryn MD Unavailable Unavailable Shashank, Taryn MD Unavailable Unavailable Shashank, Taryn MD Unavailable Unavailable Shashank, Taryn MD Unavailable Unavailable Shashank, Taryn MD Unavailable Unavailable Shashank, Taryn MD Unavailable Unavailable Shashank, Taryn MD Unavailable Unavailable Shashank, Taryn MD Unavailable Unavailable Shashank, Taryn MD Unavailable Unavailable Shashank, Taryn MD Unavailable Unavailable Shashank, Taryn MD Unavailable Unavailable Shashank, Taryn MD Unavailable Unavailable Shashank, Taryn MD Unavailable Unavailable Shashank, Taryn MD Unavailable Unavailable Shashank, Taryn MD Unavailable Unavailable Shashank, Taryn MD Unavailable Unavailable Shashank, Taryn MD Unavailable Unavailable Shashank, Taryn MD Unavailable Unavailable Alexa, A Zabrina PA Unavailable Unavailable Alexa, A Zabrina PA Unavailable Unavailable Alexa, A Zabrina PA Unavailable Unavailable Alexa, A Zabrina PA Unavailable Unavailable Alexa, A Zabrina PA Unavailable Unavailable Alexa, A Zabrina PA Unavailable Unavailable Alexa, A Zabrina PA Unavailable Unavailable Alexa, A Zabrina PA Unavailable Unavailable Alexa, A Zabrina PA Unavailable Unavailable Alexa, A Zabrina PA Unavailable Unavailable Alexa, A Zabrina PA Unavailable Unavailable Alexa, A Zabrina PA Unavailable Unavailable Alexa, A Zabrina PA Unavailable Unavailable Alexa, A Zabrina PA Unavailable Unavailable Alexa, A Zabrina PA Unavailable Unavailable Alexa, A Zabrina PA Unavailable Unavailable Alexa, A Zabrina PA Unavailable Unavailable Alexa, A Zabrina PA Unavailable Unavailable Alexa, A Zabrina PA Unavailable Unavailable Alexa, A Zabrina PA Unavailable Unavailable Alexa, A Zabrina PA Unavailable Unavailable Alexa, A Zabrina PA Unavailable Unavailable Alexa, A Zabrina PA Unavailable Unavailable Alexa, A Zabrina PA Unavailable Unavailable Alexa, A Zabrina PA Unavailable Unavailable Alexa, A Zabrina PA Unavailable Unavailable Alexa, A Zabrina PA Unavailable Unavailable Alexa, A Zabrina PA Unavailable Unavailable Alexa, A Zabrina PA Unavailable Unavailable Alexa, A Zabrina PA Unavailable Unavailable Alexa, A Zabrina PA Unavailable Unavailable Alexa, A Zabrina PA Unavailable Unavailable Alexa, A Zabrina PA Unavailable Unavailable Alexa, A Zabrina PA Unavailable Unavailable Alexa, A Zabrina PA Unavailable Unavailable Alexa, A Zabrina PA Unavailable Unavailable Alexa, A Zabrina PA Unavailable Unavailable Alexa, A Zabrina PA Unavailable Unavailable Alexa, A Zabrina PA Unavailable Unavailable Alexa, A Zabrina PA Unavailable Unavailable Alexa, A Zabrina PA Unavailable Unavailable Alexa, A Zabrina PA Unavailable Unavailable Alexa, A Zabrina PA Unavailable Unavailable Alexa, A Zabrina PA Unavailable Unavailable Alexa, A Zabrina PA Unavailable Unavailable Alexa, A Zabrina PA Unavailable Unavailable Alexa, A Zabrina PA Unavailable Unavailable Alexa, A Zabrina PA Unavailable Unavailable Alexa, A Zabrina PA Unavailable Unavailable Alexa, A Zabrina PA Unavailable Unavailable Alexa, A Zabrina PA Unavailable Unavailable Alexa, A Zabrina PA Unavailable Unavailable Alexa, A Zabrina PA Unavailable Unavailable Alexa, A Zabrina PA Unavailable Unavailable Alexa, A Zabrina PA Unavailable Unavailable Emiliano Delarosa MD Unavailable Unavailable SEBASBASIA MD Unavailable Unavailable SEBASBASIA MD Unavailable Unavailable SEBAS, BASIA SOLIS Unavailable Unavailable SEBAS, BASIA SOLIS Unavailable Unavailable SEBAS, BASIA SOLIS Unavailable Unavailable SEBAS, BASIA SOLIS Unavailable Unavailable SEBAS, BASIA SOLIS Unavailable Unavailable SEBAS, BASIA SOLIS Unavailable Unavailable SEBAS, BASIA SOLIS Unavailable Unavailable SEBAS, BASIA SOLIS Unavailable Unavailable SEBAS, BASIA SOLIS Unavailable Unavailable SEBAS, BASIA SOLIS Unavailable Unavailable SEBAS, BASIA SOLIS Unavailable Unavailable SEBAS, BASIA SOLIS Unavailable Unavailable SEBAS, BASIA SOLIS Unavailable Unavailable SEBAS, BASIA SOLIS Unavailable Unavailable SEBAS, BASIA SOLIS Unavailable Unavailable SEBAS, BASIA SOLIS Unavailable Unavailable SEBAS, BASIA SOLIS Unavailable Unavailable SEBAS, BASIA SOLIS Unavailable Unavailable SEBAS, BASIA SOLIS Unavailable Unavailable SEBAS, BASIA SOLIS Unavailable Unavailable SEBAS, BASIA SOLIS Unavailable Unavailable SEBAS, FLOR MD Unavailable Unavailable SEBAS, FLOR MD Unavailable Unavailable SEBAS, FLOR MD Unavailable Unavailable SEBAS, FLOR MD Unavailable Unavailable SEBAS, FLOR MD Unavailable Unavailable SEBAS, FLOR MD Unavailable Unavailable SEBAS, FLOR MD Unavailable Unavailable SEBAS, FLOR MD Unavailable Unavailable SEBAS, FLOR MD Unavailable Unavailable SEBAS, FLOR MD Unavailable Unavailable SEBAS, FLOR MD Unavailable Unavailable SEBAS, FLOR MD Unavailable Unavailable SEBAS, FLOR MD Unavailable Unavailable SEBAS, FLOR MD Unavailable Unavailable SEBAS, FLOR MD Unavailable Unavailable SEBAS, FLOR MD Unavailable Unavailable SEBAS, FLOR MD Unavailable Unavailable SEBAS, FLOR MD Unavailable Unavailable SEBAS, FLOR MD Unavailable Unavailable SEBAS, FLOR MD Unavailable Unavailable SEBAS, FLOR MD Unavailable Unavailable SEBAS, FLOR MD Unavailable Unavailable SEBAS, FLOR MD Unavailable Unavailable SEBAS, FLOR MD Unavailable Unavailable SEBAS, FLOR MD Unavailable Unavailable SEBAS, FLOR MD Unavailable Unavailable SEBAS, FLOR MD Unavailable Unavailable SEBAS, FLOR MD Unavailable Unavailable SEBAS, FLOR MD Unavailable Unavailable SEBAS, FLOR MD Unavailable Unavailable SEBAS, FLOR MD Unavailable Unavailable Marito Bosch MD Unavailable Unavailable El-Khally, A Ziad MD Unavailable Unavailable El-Khally, A Ziad MD Unavailable Unavailable El-Khally, A Ziad MD Unavailable Unavailable El-Khally, A Ziad MD Unavailable Unavailable El-Khally, A Ziad MD Unavailable Unavailable El-Khally, A Ziad MD Unavailable Unavailable El-Khally, A Ziad MD Unavailable Unavailable El-Khally, A Ziad MD Unavailable Unavailable El-Khally, A Ziad MD Unavailable Unavailable El-Khally, A Ziad MD Unavailable Unavailable El-Khally, A Ziad MD Unavailable Unavailable El-Khally, A Ziad MD Unavailable Unavailable El-Khally, A Ziad MD Unavailable Unavailable El-Khally, A Ziad MD Unavailable Unavailable El-Khally, A Ziad MD Unavailable Unavailable El-Khally, A Ziad MD Unavailable Unavailable El-Khally, A Ziad MD Unavailable Unavailable El-Khally, A Ziad MD Unavailable Unavailable El-Khally, A Ziad MD Unavailable Unavailable El-Khally, A Ziad MD Unavailable Unavailable El-Khally, A Ziad MD Unavailable Unavailable El-Khally, A Ziad MD Unavailable Unavailable El-Khally, A Ziad MD Unavailable Unavailable El-Khally, A Ziad MD Unavailable Unavailable El-Khally, A Ziad MD Unavailable Unavailable El-Khally, A Ziad MD Unavailable Unavailable El-Khally, A Ziad MD Unavailable Unavailable El-Khally, A Ziad MD Unavailable Unavailable El-Khally, A Ziad MD Unavailable Unavailable El-Khally, A Ziad MD Unavailable Unavailable El-Khally, A Ziad MD Unavailable Unavailable El-Khally, A Ziad MD Unavailable Unavailable El-Khally, A Ziad MD Unavailable Unavailable El-Khally, A Ziad MD Unavailable Unavailable El-Khally, A Ziad MD Unavailable Unavailable El-Khally, A Ziad MD Unavailable Unavailable El-Khally, A Ziad MD Unavailable Unavailable El-Khally, A Ziad MD Unavailable Unavailable El-Khally, A Ziad MD Unavailable Unavailable Granger II, A Nate Lin. Unavailable Unavailable Granger II, A Nate Naidu Unavailable Unavailable Granger II, A Nate Naidu Unavailable Unavailable Granger II, A Nate Naidu Unavailable Unavailable Granger II, A Nate Naidu Unavailable Unavailable Granger II, A Nate Naidu Unavailable Unavailable Granger II, A Nate Naidu Unavailable Unavailable Granger II, A Nate Naidu Unavailable Unavailable Granger II, A Nate Naidu Unavailable Unavailable Granger II, A Nate Naidu Unavailable Unavailable Granger II, A Nate Naidu Unavailable Unavailable Granger II, A Nate Naidu Unavailable Unavailable Granger II, A Nate Naidu Unavailable Unavailable Granger II, A Nate Naidu Unavailable Unavailable Granger II, A Nate Naidu Unavailable Unavailable Granger II, A Nate Naidu Unavailable Unavailable Granger II, A Nate Naidu Unavailable Unavailable Granger II, A Nate Naidu Unavailable Unavailable Granger II, A Nate Naidu Unavailable Unavailable Granger II, A Nate Naidu Unavailable Unavailable Granger II, A Nate Naidu Unavailable Unavailable Granger II, A Nate Naidu Unavailable Unavailable Granger II, A Nate Naidu Unavailable Unavailable Granger II, A Nate Naidu Unavailable Unavailable Granger II, A Nate Naidu Unavailable Unavailable Granger II, A Nate Naidu Unavailable Unavailable Granger II, A Nate M.D. Unavailable Unavailable Granger II, A Nate M.D. Unavailable Unavailable Granger II, A Nate M.D. Unavailable Unavailable Granger II, A Nate M.D. Unavailable Unavailable Granger II, A Nate M.D. Unavailable Unavailable Granger II, A Nate M.D. Unavailable Unavailable Granger II, A Nate M.D. Unavailable Unavailable Granger II, A Nate M.D. Unavailable Unavailable Granger II, A Nate M.D. Unavailable Unavailable Granger II, A Nate M.D. Unavailable Unavailable Granger II, A Nate M.D. Unavailable Unavailable Granger II, A Nate M.D. Unavailable Unavailable Granger II, A Nate M.D. Unavailable Unavailable Granger II, A Nate M.D. Unavailable Unavailable Granger II, A Nate M.D. Unavailable Unavailable Granger II, A Nate M.D. Unavailable Unavailable Granger II, A Nate M.D. Unavailable Unavailable Granger II, A Nate M.D. Unavailable Unavailable Granger II, A Nate M.D. Unavailable Unavailable Granger II, A Nate M.D. Unavailable Unavailable Granger II, A Nate M.D. Unavailable Unavailable Granger II, A Nate M.D. Unavailable Unavailable Granger II, A Nate M.D. Unavailable Unavailable Granger II, A Nate M.D. Unavailable Unavailable Granger II, A Nate M.D. Unavailable Unavailable Granger II, A Nate M.D. Unavailable Unavailable Granger II, A Nate M.D. Unavailable Unavailable Granger II, A Nate M.D. Unavailable Unavailable Re-disclosure Warning The records that you are about to access may contain information from federally-assisted alcohol or drug abuse programs. If such information is present, then the following federally mandated warning applies: This information has been disclosed to you from records protected by federal confidentiality rules (42 CFR part 2). The federal rules prohibit you from making any further disclosure of this information unless further disclosure is expressly permitted by the written consent of the person to whom it pertains or as otherwise permitted by 42 CFR part 2. A general authorization for the release of medical or other information is NOT sufficient for this purpose. The Federal rules restrict any use of the information to criminally investigate or prosecute any alcohol or drug abuse patient.The records that you are about to access may contain highly sensitive health information, the redisclosure of which is protected by Article 27-F of the [facility] Public Health law. If you continue you may have access to information: Regarding HIV / AIDS; Provided by facilities licensed or operated by the [facility] Office of Mental Health; or Provided by the [facility] Office for People With Developmental Disabilities. If such information is present, then the following [facility] mandated warning applies: This information has been disclosed to you from confidential records which are protected by state law. State law prohibits you from making any further disclosure of this information without the specific written consent of the person to whom it pertains, or as otherwise permitted by law. Any unauthorized further disclosure in violation of state law may result in a fine or fdc sentence or both. A general authorization for the release of medical or other information is NOT sufficient authorization for further disc losure. Allergies and Adverse Reactions Type Description Substance Reaction Status Data Source(s ) Propensity to adverse reactions NICKEL nickel sulfate Active [facility] Propensity to adverse reactions adhesives Propensity to adverse reactions rash Active eCW1 ([facility], 1928–1983) Propensity to adverse reactions adhesives Propensity to adverse reactions rash Active eCW ([facility], [facility]1983) Propensity to adverse reactions adhesives Propensity to adverse reactions rash Active [facility] ([facility], [facility]) Propensity to adverse reactions adhesives Propensity to ad verse reactions Unknown Active eCW ([facility]) Propensity to adverse reactions adhesives Propensity to ad verse reactions Unknown Active eCW ([facility]) Propensity to adverse reactions adhesives Propensity to ad verse reactions Unknown Active eCW ([facility]) Drug allergy Sulfa (Sulfonamide Antibiotics) Sulfa (Sulfonami de Antibiotics) COULD NOT BREATH [facility] Allergy SEASONAL ALLERGIES SEASONAL ALLERGIES [facility] Family History Family Member Name Family Member Gender Family Member Status Date o f Status Description Data Source(s) Unknown Condition [facility] Unknown Condition [facility] Unknown Condition [facility] Unknown Condition [facility] Unknown Condition [facility] Unknown Condition [facility] Unknown Condition [facility] Unknown Condition [facility] Unknown Condition [facility] Condition [facility] Condition [facility] Unknown Condition [facility] Unknown Condition [facility] Unknown Condition [facility] Unknown Condition [facility] Unknown Condition [facility] Unknown Condition [facility] Unknown Condition [facility] Unknown Condition [facility] Unknown Condition [facility] Unknown Condition [facility] Unknown Condition [facility] Unknown Condition [facility] Unknown Condition [facility] Unknown Condition [facility] Unknown Condition [facility] Unknown Condition [facility] Unknown Condition [facility] Unknown Condition [facility] Unknown Condition [facility] Unknown Condition [facility] Unknown Condition [facility] Unknown Condition [facility] Encounters Encounter Providers Location Date Indications Data Source(s ) Outpatient Attender: SABINE REED MD 01/12/2021 12:00:00 A M [facility] Office Visit Attender: MORGAN DOBBS MD Main office - [facility] 12/09/2020 12:30:00 PM EST MEDENT ([facility], ) Outpatient [address] [place] [address], [facility] [phone] 12/09/2020 12:00:00 AM EST eCW1 ([facility]) Outpatient Attender: BASIA MULLEN MD [email or web address] 12/04/2020 12:00:00 AM EST [facility] Outpatient Attender: Chelo Chambers MDAdmitter: Chelo wheeler MD [email or web address] 11/28/2020 08:34:[address] [facility] Outpatient Attender: ERYN MICHELLE 11/25/2020 07:30:00 AM EST D73.5,E06.3 [facility] D73.5,E06.3 Outpatient Attender: ERYN FISCHER CReferrer: Zabrina CAREY 11/19/2020 08:20:00 AM EST - 11/19/2020 09:50:00 AM EST [facility] Outpatient Attender: BASIA MULLEN MD [email or web address] [id number] 12:00:00 AM EST - 11/12/2020 04:21:28 PM EST [facility] Outpatient Attender: LUKE CARREON MD Main Office 10/24/2020 07:45:00 AM EST MED[facility] ([facility]) Outpatient Attender: SABINE REED MD [id number] 10/08/2020 12:0 0:00 AM EST Systemic lupus erythematosus, unspecified [facility] Systemic lupus erythematosus, unspecifie d Outpatient Attender: SABINE REED MD [id number] 10/01/2020 12:0 0:00 AM EST Systemic lupus erythematosus, unspecified [facility] Systemic lupus erythematosus, unspecifie d Outpatient [address] [phone] 10/01/2020 12:00:00 AM EST [facility]CW1 ([facility]) [facility] [address] [facility] [address] [address] 09/12/2020 12:00:00 AM EDT eCW1 ([facility]) Postop visit [address] [facility] [place] [address] 09/03/2020 12:00:00 AM EDT eCW1 ([facility]) Unknown [address] [facility] [address] [address] 09/02/2020 12:00:00 AM EDT eCW1 ([facility]) Outpatient Attender: Taryn Encarnacion MDReferrer: Nate Olmos rd II 08/20/2020 12:00:00 AM T [facility] Postop visit [address] [facility] [place] [address] 08/15/2020 12:00:00 AM EDT eCW1 ([facility]) Preadmit Attender: Nate Granger II 07/02/2020 0 7:30:00 AM EDT R10.2,N80.9/DIAGNOSTIC LAPAROSCOPY [id number] [facility] R10.2,N80.9/DIAGNOSTIC LAPAROSCOPY [id number] Outpatient Attender: Nate Granger IIReferrer: Zabrina CAREY 06/18/2020 11:48:00 AM EDT - 06/18/2020 12:57:00 PM EDT [facility] Outpatient Attender: Nate Granger II 05/30/2020 0 1:16:00 PM EDT CHANGE IN BOWEL HABITS,R10.2,R19.4 [facility] CHANGE IN BOWEL HABITS,R10.2,R19.4 Outpatient Attender: Nate Granger IIReferrer: Zabrina CAREY 05/28/2020 11:05:00 AM EDT - 05/28/2020 11:51:00 AM EDT [facility] Outpatient Attender: Nate Granger II 04/23/2020 1 1:58:00 AM EDT OVARIAN CYST [facility] OVARIAN CYST Outpatient Attender: Nate Granger II 04/02/2020 11:34:0 0 AM EDT R10.2 [facility] R10.2 Outpatient Attender: Nate Granger IIReferrer: Zabrina CAREY 04/02/2020 10:02:00 AM EDT - 04/02/2020 11:29:00 AM EDT [facility] Emergency Attender: Emiliano Delarosa MD 04/2020 04:29:00 PM EDT - 03/19/2020 06:39:00 PM EDT ABDOMINAL PAIN [facility] ABDOMINAL PAIN Patient discharged. Outpatient Attender: Marito Bosch MD 03/07/2020 12:05:0 0 PM EDT [facility] Outpatient Attender: Marito Bosch MDReferrer: Zabrina CAREY 03/07/2020 09:56:00 AM EDT - 03/07/2020 10:27:00 AM EDT [facility] Outpatient Attender: Marito Bosch MD 02/01/2020 11:30:0 0 AM EDT Z30.432 [facility] Z30.432 Outpatient Attender: Marito Bosch MDReferrer: Zabrina CAREY 02/01/2020 10:55:00 AM EDT - 02/01/2020 11:51:00 AM EDT [facility] Outpatient Attender: Zev Figueroa DOReferrer: Zabrina CAREY 01/29/2020 02:03:00 PM EDT - 01/29/2020 02:42:00 PM EDT [facility] Outpatient Attender: Marito Bosch MD 01/22/2020 0 3:43:00 PM EDT PELVIC PAIN,R10.2,Z12.4 [facility] PELVIC PAIN,R10.2,Z12.4 Outpatient Attender: Marito Bosch MDReferrer: Zabrina CAREY 01/22/2020 02:30:00 PM EDT - 01/22/2020 03:38:00 PM EDT [facility] Outpatient<td ID="[email or web address] [email or web address]">urgent visit</td><td>Abner Burger PA-C</td><td>[facility]</td><td>12/29/2019</td><td><content ID="[email or web address]">Otitis Media</content></td> Attender: Abner CAREY [facility] 12/29/2019 11:35:00 AM EST - 12/29/2019 11:59:00 PM EST [facility] [email or web address] 12/27/2019 06:46:29 AM EST [facility] Attender: COLLINS SANCHEZ MDReferrer: Nate Olmos rd II [email or web address] 12/24/2019 12:00:00 AM EST [facility] Outpatient Attender: Nate Granger II 11/05/2019 1 2:24:00 PM EST PELVIC PAIN [facility] PELVIC PAIN Outpatient Attender: Davide López DO 11/01/2019 12:49:00 PM EST R30.9,R10.2,N89.8,R79.89 [facility] R30.9,R10.2,N89.8,R79.89 Outpatient Attender: Davide Burriserrer: Zabrina CAREY 11/01/2019 11:39:00 AM EST - 11/01/2019 12:38:00 PM EST [facility] Immunizations Vaccine Date Status Description Data Source(s) Pneumococcal conjugate PCV 13 05/07/2020 12:00:00 AM EDT complet ed pneumococcal conjugate PCV 13 [facility] Medications Medication Brand Name Start Date Product Form Dose Route Admi nistrative Instructions Pharmacy Instructions Status Indications Reaction Description Data Source(s) topiramate 25 MG Oral Tablet [Topamax] Topamax 12/09/2020 12:00:00 A M EST active [facility] ([facility]) 25 mg 12/09/2020 12:00:00 AM EST tablet 42 TAKE ONE TABLET BY MOUTH NIGHTLY FOR 1 WEEK THEN TAKE ONE TABLET BY MOUTH TWICE A DAY FOR 1 WEEK THEN TAKE ONE TABLET BY MOUTH EVERY MORNING AND TAKE TWO TABLETS NIGHTLY TAKE ONE TABLET BY MOUTH NIGHTLY FOR 1 WEEK THEN TAKE ONE TABLET BY MOUTH TWICE A DAY FOR 1 WEEK THEN TAKE ONE TABLET BY MOUTH EVERY MORNING AND TAKE TWO TABLETS NIGHTLY SOLD: 12/09/2020 [facility] 50 mg 12/09/2020 12:00:00 AM EST tablet 60 TAKE ONE TABLET BY MOUTH TWICE A DAY TAKE ONE TABLET BY MOUTH TWICE A DAY SOLD: 12/09/2020 [facility] topiramate 50 MG Oral Tablet [Topamax] Topamax 12/09/2020 12:00:00 AM EST ORAL active [facility] ([facility]) Aspirin 81 MG Chewable Tablet Aspirin ([facility]) 81 mg tablet,chewable Aspirin ([facility] Aspirin) 81 mg tablet,chewable 11/19/2020 08:35:43 AM EST 81 MG active [facility] 150 mg 11/19/2020 12:00:00 AM EST tablet 1 TAKE 1 TABLET BY MOUTH FOR ONE TIME DOSE AFTER ANTIBIOTIC DOSE IS COMPLETE TAKE 1 TABLET BY MOUTH FOR ONE TIME DOSE AFTER ANTIBIOTIC DOSE IS COMPLETE SOLD: 11/20/2020 [facility] 2 % 11/19/2020 12:00:00 AM EST cream 45 INSERT 1 APPLICATORFUL VAGINALLY AT BEDTIME INSERT 1 APPLICATORFUL VAGINALLY AT BEDTIME SOLD: 11/20/2020 [facility] 875-125 mg 11/19/2020 12:00:00 AM EST tablet 14 TAKE 1 TABLET BY MOUTH TWO TIMES A DAY TAKE 1 TABLET BY MOUTH TWO TIMES A DAY SOLD: 11/20/2020 [facility] Aspirin 81 MG Delayed Release Oral Tablet aspirin 81 M G EC tablet aspirin 81 MG EC tablet 10/23/2020 12:00:00 AM EST Oral active Take by mouth [facility] Aspirin 81 MG Delayed Release Oral Tablet Aspirin 10/23/2020 1 2:00:00 AM EST ORAL active [facility] ([facility]) Levothyroxine Sodium 0.025 MG Oral Tablet Levothyroxine Sodi um 10/23/2020 12:00:00 AM EST ORAL active M [facility] ([facility]) 800 mg 07/28/2020 12:00:00 AM EDT tablet 30 TAKE ONE TABLET BY MOUTH THREE TIMES A DAY FOR PAIN TAKE ONE TABLET BY MOUTH THREE TIMES A DAY FOR PAIN SO LD: 07/29/2020 [facility] 100 mg 07/28/2020 12:00:00 AM EDT capsule 14 TAKE ONE CAPSULE BY MOUTH EVERY 12 HOURS TAKE ONE CAPSULE BY MOUTH EVERY 12 HOURS SOLD: 07/29/2020 [facility] 5-325 mg 07/28/2020 12:00:00 AM EDT tablet 20 TAKE ONE TABLET BY MOUTH EVERY 4 HOURS NEEDED FOR MILD/MODERATE PAIN (SCORE OF 1-7) MAXIMUM DAILY DOSE = SIX TABLETS TAKE ONE TABLET BY MOUTH EVERY 4 HOURS A S NEEDED FOR MILD/MODERATE PAIN (SCORE OF 1-7) MAXIMUM DAILY DOSE = SIX TABLETS SOLD: 07/29/2020 [facility] Phentermine Hydrochloride 37.5 MG Oral Tablet Phentermine 06/18/2020 01:26:11 PM EDT 37.5 MG [facility] Phentermine Hydrochloride 37.5 MG Oral Tablet Phentermine 06/18/2020 01:04:10 PM EDT 37.5 MG [facility] 37.5 mg 06/18/2020 12:00:00 AM EDT tablet 30 TAKE ONE TABLET BY MOUTH EVERY DAY FOR WEIGHT MANAGEMENT MAXIMUM DAILY DOSE = ONE TABLET TAKE ONE TABLET BY MOUTH EVERY DAY FOR WEIGHT MANAGEMENT MAXIMUM DAILY DOSE = ONE TABLET SOLD: 06/18/2020 [facility] 37.5 mg 06/18/2020 12:00:00 AM EDT tablet 30 TAKE ONE TABLET BY MOUTH EVERY DAY FOR WEIGHT MANAGEMENT MAXIMUM DAILY DOSE = ONE TABLET TAKE ONE TABLET BY MOUTH EVERY DAY FOR WEIGHT MANAGEMENT MAXIMUM DAILY DOSE = ONE TABLET SOLD: 07/17/2020 [facility] Levothyroxine Sodium 0.025 MG Oral Table t Levothyroxine (Synthroid) 25 mcg tablet Levothyroxine (Synthroid) 25 mcg tablet 04/02/2020 12:59:19 PM E DT 25 MCG active [facility] Levothyroxine Sodium 0.025 MG Oral Table t Levothyroxine (Synthroid) 25 mcg tablet Levothyroxine (Synthroid) 25 mcg tablet 04/02/2020 12:59:19 PM E DT 25 MCG active [facility] Levothyroxine Sodium 0.025 MG Oral Table t Levothyroxine (Synthroid) 25 mcg tablet Levothyroxine (Synthroid) 25 mcg tablet 04/02/2020 12:59:19 PM E DT 25 MCG completed [facility] Cimetidine 800 MG Oral Tablet Cimetidine 04/02/2020 12:58:39 PM EDT 800 MG completed [facility] Cimetidine 800 MG Oral Tablet Cimetidine 04/02/2020 12:58:39 PM EDT 800 MG completed [facility] Cimetidine 800 MG Oral Tablet Cimetidine 04/02/2020 12:58:39 PM EDT 800 MG completed [facility] 24 HR Metformin hydrochloride 750 MG Extended Release Oral T ablet Metformin 04/02/2020 12:57:59 PM EDT 1500 MG active [facility] 24 HR Metformin hydrochloride 750 MG Extended Release Oral T ablet Metformin 04/02/2020 12:57:59 PM EDT 1500 MG completed [facility] 24 HR Metformin hydrochloride 750 MG Extended Release Oral T ablet Metformin 04/02/2020 12:57:59 PM EDT 1500 MG active [facility] 25 mcg 04/02/2020 12:00:00 AM EDT tablet 30 TAKE ONE TABLET BY MOUTH EVERY DAY TAKE ONE TABLET BY MOUTH EVERY DAY SOLD: 04/02/2020 [facility] 750 mg 04/02/2020 12:00:00 AM EDT tablet extended release 24 hr 60 TAKE TWO TABLETS BY MOUTH AT BEDTIME TAKE TWO TABLETS BY MOUTH AT BEDTIME SOLD: 05/28/2020 [facility] 750 mg 04/02/2020 12:00:00 AM EDT tablet extended release 24 hr 60 TAKE TWO TABLETS BY MOUTH AT BEDTIME TAKE TWO TABLETS BY MOUTH AT BEDTIME SOLD: 05/01/2020 [facility] 25 mcg 04/02/2020 12:00:00 AM EDT tablet 30 TAKE ONE TABLET BY MOUTH EVERY DAY TAKE ONE TABLET BY MOUTH EVERY DAY SOLD: 05/01/2020 [facility] 750 mg 04/02/2020 12:00:00 AM EDT tablet extended release 24 hr 60 TAKE TWO TABLETS BY MOUTH AT BEDTIME TAKE TWO TABLETS BY MOUTH AT BEDTIME SOLD: 07/17/2020 [facility] 800 mg 04/02/2020 12:00:00 AM EDT tablet 60 TAKE ONE TABLET BY MOUTH TWICE A DAY WITH MEALS TAKE ONE TABLET BY MOUTH TWICE A DAY WITH MEALS SOLD: 04/02/2020 [facility] 25 mcg 04/02/2020 12:00:00 AM EDT tablet 30 TAKE ONE TABLET BY MOUTH EVERY DAY TAKE ONE TABLET BY MOUTH EVERY DAY SOLD: 05/28/2020 [facility] 750 mg 04/02/2020 12:00:00 AM EDT tablet extended release 24 hr 60 TAKE TWO TABLETS BY MOUTH AT BEDTIME TAKE TWO TABLETS BY MOUTH AT BEDTIME SOLD: 04/02/2020 [facility] 800 mg 04/02/2020 12:00:00 AM EDT tablet 60 TAKE ONE TABLET BY MOUTH TWICE A DAY WITH MEALS TAKE ONE TABLET BY MOUTH TWICE A DAY WITH MEALS SOLD: 05/01/2020 [facility] 25 mcg 04/02/2020 12:00:00 AM EDT tablet 30 TAKE ONE TABLET BY MOUTH EVERY DAY TAKE ONE TABLET BY MOUTH EVERY DAY SOLD: 07/17/2020 [facility] Fluconazole 150 MG Oral Tablet Fluconazole (Diflucan) 150 mg tablet Fluconazole (Diflucan) 150 mg tablet 03/07/2020 10:46:43 AM EDT 150 MG completed [facility] Fluconazole 150 MG Oral Tablet Fluconazole 03/07/2020 10:46:43 AM EDT 150 MG completed [facility] Fluconazole 150 MG Oral Tablet Fluconazole (Diflucan) 150 mg tablet Fluconazole (Diflucan) 150 mg tablet 03/07/2020 10:46:43 AM EDT 150 MG completed [facility] Fluconazole 150 MG Oral Tablet Fluconazole (Diflucan) 150 mg tablet Fluconazole (Diflucan) 150 mg tablet 03/07/2020 10:46:43 AM EDT 150 MG completed [facility] Fluconazole 150 MG Oral Tablet Fluconazole 03/07/2020 10:46:43 AM EDT 150 MG completed [facility] Metronidazole 500 MG Oral Tablet Metronidazole 03/07/2020 10:46:08 AM EDT 500 MG completed [facility] Metronidazole 500 MG Oral Tablet Metronidazole (Flagyl ) 500 mg tablet Metronidazole (Flagyl) 500 mg tablet 03/07/2020 10:46:08 AM EDT 500 MG completed [facility] Metronidazole 500 MG Oral Tablet Metronidazole (Flagyl ) 500 mg tablet Metronidazole (Flagyl) 500 mg tablet 03/07/2020 10:46:08 AM EDT 500 MG completed [facility] Metronidazole 500 MG Oral Tablet Metronidazole (Flagyl ) 500 mg tablet Metronidazole (Flagyl) 500 mg tablet 03/07/2020 10:46:08 AM EDT 500 MG completed [facility] Metronidazole 500 MG Oral Tablet Metronidazole 03/07/2020 10:46:08 AM EDT 500 MG completed [facility] doxycycline hyclate 100 MG Oral Capsule Doxycycline Hyclate Doxycycline Hyclate 03/07/2020 10:45:22 AM EDT 100 MG completed [facility] doxycycline hyclate 100 MG Oral Capsule Doxycycline Hyclate Doxycycline Hyclate 03/07/2020 10:45:22 AM EDT 100 MG completed [facility] doxycycline hyclate 100 MG Oral Capsule Doxycycline Hyclate Doxycycline Hyclate 03/07/2020 10:45:22 AM EDT 100 MG completed [facility] doxycycline hyclate 100 MG Oral Capsule Doxycycline Hyclate Doxycycline Hyclate 03/07/2020 10:45:22 AM EDT 100 MG completed [facility] doxycycline hyclate 100 MG Oral Capsule Doxycycline Hyclate Doxycycline Hyclate 03/07/2020 10:45:22 AM EDT 100 MG [facility] 500 mg 03/07/2020 12:00:00 AM EDT tablet 28 TAKE ONE TABLET BY MOUTH TWICE A DAY FOR 14 DAYS TAKE ONE TABLET BY MOUTH TWICE A DAY FOR 14 DAYS SOLD: 03/07/2020 [facility] 100 mg 03/07/2020 12:00:00 AM EDT capsule 28 TAKE ONE CAPSULE BY MOUTH TWICE A DAY FOR 14 DAYS TAKE ONE CAPSULE BY MOUTH TWICE A DAY FOR 14 DAYS SOLD : 03/07/2020 [facility] 150 mg 03/07/2020 12:00:00 AM EDT tablet 2 TAKE 1 TABLET BY MOUTH ONCE A WEEK IF NEEDED TAKE 1 TABLET BY MOUTH ONCE A WEEK IF NEEDED SOLD: 03/07/2020 [facility] Levonorgestrel 0.431277 MG/HR Drug Implant Levonorgestrel 02/01/2020 11:57:05 AM EDT 20 MCG active [facility] Levonorgestrel 0.957877 MG/HR Drug Impla nt Levonorgestrel (Mirena) 20 mcg/24 hours (5 yrs) 52 mg intrauterine device Levonorgestrel (Mirena) 20 mcg/24 hours (5 yrs) 52 mg intrauterine device 02/01/2020 11:57:05 AM EDT 20 MCG active [facility] Levonorgestrel 0.684761 MG/HR Drug Impla nt Levonorgestrel (Mirena) 20 mcg/24 hours (5 yrs) 52 mg intrauterine device Levonorgestrel (Mirena) 20 mcg/24 hours (5 yrs) 52 mg intrauterine device 02/01/2020 11:57:05 AM EDT 20 MCG active [facility] Levonorgestrel 0.284415 MG/HR Drug Implant Levonorgestrel 02/01/2020 11:57:05 AM EDT 20 MCG active [facility] Levonorgestrel 0.049451 MG/HR Drug Implant Levonorgestrel 02/01/2020 11:57:05 AM EDT completed [facility] Levonorgestrel 0.836595 MG/HR Drug Impla nt Levonorgestrel (Mirena) 20 mcg/24 hours (5 yrs) 52 mg intrauterine device Levonorgestrel (Mirena) 20 mcg/24 hours (5 yrs) 52 mg intrauterine device 02/01/2020 11:57:05 AM EDT 20 MCG completed [facility] meloxicam 15 MG Oral Tablet Meloxicam Meloxicam 02/01/2020 11:54 :25 AM EDT 15 MG active [facility] meloxicam 15 MG Oral Tablet Meloxicam (Mobic) 15 mg ta blet Meloxicam (Mobic) 15 mg tablet 02/01/2020 11:54:25 AM EDT 15 MG completed [facility] meloxicam 15 MG Oral Tablet Meloxicam Meloxicam 02/01/2020 11:54 :25 AM EDT 15 MG active [facility] meloxicam 15 MG Oral Tablet Meloxicam (Mobic) 15 mg ta blet Meloxicam (Mobic) 15 mg tablet 02/01/2020 11:54:25 AM EDT 15 MG completed [facility] meloxicam 15 MG Oral Tablet Meloxicam Meloxicam 02/01/2020 11:54 :25 AM EDT 15 MG active [facility] meloxicam 15 MG Oral Tablet Meloxicam (Mobic) 15 mg ta blet Meloxicam (Mobic) 15 mg tablet 02/01/2020 11:54:25 AM EDT 15 MG completed [facility] Fluconazole 150 MG Oral Tablet Fluconazole (Diflucan) 150 mg tablet Fluconazole (Diflucan) 150 mg tablet 02/01/2020 11:53:42 AM EDT 150 MG completed [facility] Fluconazole 150 MG Oral Tablet Fluconazole 02/01/2020 11:53:42 AM EDT 150 MG completed [facility] Fluconazole 150 MG Oral Tablet Fluconazole 02/01/2020 11:53:42 AM EDT 150 MG completed [facility] Fluconazole 150 MG Oral Tablet Fluconazole 02/01/2020 11:53:42 AM EDT 150 MG completed [facility] Fluconazole 150 MG Oral Tablet Fluconazole (Diflucan) 150 mg tablet Fluconazole (Diflucan) 150 mg tablet 02/01/2020 11:53:42 AM EDT 150 MG completed [facility] Fluconazole 150 MG Oral Tablet Fluconazole (Diflucan) 150 mg tablet Fluconazole (Diflucan) 150 mg tablet 02/01/2020 11:53:42 AM EDT 150 MG completed [facility] doxycycline hyclate 100 MG Oral Tablet Doxycycline Hyclate D oxycycline Hyclate 02/01/2020 11:53:14 AM EDT 100 MG completed [facility] doxycycline hyclate 100 MG Oral Tablet Doxycycline Hyclate D oxycycline Hyclate 02/01/2020 11:53:14 AM EDT 100 MG completed [facility] doxycycline hyclate 100 MG Oral Tablet Doxycycline Hyclate D oxycycline Hyclate 02/01/2020 11:53:14 AM EDT 100 MG completed [facility] doxycycline hyclate 100 MG Oral Tablet Doxycycline Hyclate D oxycycline Hyclate 02/01/2020 11:53:14 AM EDT 100 MG completed [facility] doxycycline hyclate 100 MG Oral Tablet Doxycycline Hyclate D oxycycline Hyclate 02/01/2020 11:53:14 AM EDT 100 MG completed [facility] doxycycline hyclate 100 MG Oral Tablet Doxycycline Hyclate D oxycycline Hyclate 02/01/2020 11:53:14 AM EDT 100 MG completed [facility] 15 mg 02/01/2020 12:00:00 AM EDT tablet 3 TAKE ONE TABLET BY MOUTH EVERY DAY FOR 3 DAYS EVERY MONTH FOR PELVIC PAIN TAKE ONE TABLET BY MOUTH EVERY DAY FOR 3 DAYS EVERY MONTH FOR PELVIC PAIN SOLD: 03/07/2020 [facility] 100 mg 02/01/2020 12:00:00 AM EDT capsule 14 TAKE ONE TABLET BY MOUTH TWICE A DAY FOR 7 DAYS FOR INFECTION TAKE ONE TABLET BY MOUTH TWICE A DAY FOR 7 DAYS FOR INFECTION SOLD: 02/01/2020 [facility] 15 mg 02/01/2020 12:00:00 AM EDT tablet 3 TAKE ONE TABLET BY MOUTH EVERY DAY FOR 3 DAYS EVERY MONTH FOR PELVIC PAIN TAKE ONE TABLET BY MOUTH EVERY DAY FOR 3 DAYS EVERY MONTH FOR PELVIC PAIN SOLD: 02/01/2020 [facility] 150 mg 02/01/2020 12:00:00 AM EDT tablet 1 TAKE 1 TABLET BY MOUTH ONCE WEEKLY NEEDED FOR CHANO TAKE 1 TABLET BY MOUTH ONCE WEEKLY NE EDED FOR CHANO SOLD: 02/01/2020 [facility] Fluconazole 150 MG Oral Tablet Fluconazole (Diflucan) 150 mg tablet Fluconazole (Diflucan) 150 mg tablet 01/24/2020 09:27:00 AM EDT 150 MG completed [facility] Fluconazole 150 MG Oral Tablet Fluconazole (Diflucan) 150 mg tablet Fluconazole (Diflucan) 150 mg tablet 01/24/2020 09:27:00 AM EDT 150 MG completed [facility] Fluconazole 150 MG Oral Tablet Fluconazole 01/24/2020 09:27:00 AM EDT 150 MG completed [facility] Fluconazole 150 MG Oral Tablet Fluconazole 01/24/2020 09:27:00 AM EDT 150 MG active [facility] Fluconazole 150 MG Oral Tablet Fluconazole 01/24/2020 09:27:00 AM EDT 150 MG completed [facility] Fluconazole 150 MG Oral Tablet Fluconazole (Diflucan) 150 mg tablet Fluconazole (Diflucan) 150 mg tablet 01/24/2020 09:27:00 AM EDT 150 MG [facility] Fluconazole 150 MG Oral Tablet Fluconazole 01/24/2020 09:27:00 AM EDT 150 MG completed [facility] Fluconazole 150 MG Oral Tablet Fluconazole 01/24/2020 09:27:00 AM EDT 150 MG active [facility] Ciprofloxacin 500 MG Oral Tablet Ciprofloxacin Hcl Ciproflox acin Hcl 01/24/2020 09:24:50 AM EDT 500 MG completed [facility] Ciprofloxacin 500 MG Oral Tablet Ciprofloxacin Hcl (Ci pro) 500 mg tablet Ciprofloxacin Hcl (Cipro) 500 mg tablet 01/24/2020 09:24:50 AM EDT 50 0 MG completed [facility] Ciprofloxacin 500 MG Oral Tablet Ciprofloxacin Hcl Ciproflox acin Hcl 01/24/2020 09:24:50 AM EDT 500 MG [facility] Ciprofloxacin 500 MG Oral Tablet Ciprofloxacin Hcl Ciproflox acin Hcl 01/24/2020 09:24:50 AM EDT [address] [facility] Ciprofloxacin 500 MG Oral Tablet Ciprofloxacin Hcl Ciproflox acin Hcl 01/24/2020 09:24:50 AM EDT 500 MG [facility] Ciprofloxacin 500 MG Oral Tablet Ciprofloxacin Hcl (Ci pro) 500 mg tablet Ciprofloxacin Hcl (Cipro) 500 mg tablet 01/24/2020 09:24:50 AM EDT 50 0 MG completed [facility] Ciprofloxacin 500 MG Oral Tablet Ciprofloxacin Hcl (Ci pro) 500 mg tablet Ciprofloxacin Hcl (Cipro) 500 mg tablet 01/24/2020 09:24:50 AM EDT 50 0 MG completed [facility] Ciprofloxacin 500 MG Oral Tablet Ciprofloxacin Hcl Ciproflox acin Hcl 01/24/2020 09:24:50 AM EDT [address] [facility] 500 mg 01/24/2020 12:00:00 AM EDT tablet 20 TAKE ONE TABLET BY MOUTH TWICE A DAY FOR 10 DAYS FOR UTI TAKE ONE TABLET BY MOUTH TWICE A DAY FOR 10 DAYS FOR UTI SOLD: 01/24/2020 [facility] 150 mg 01/24/2020 12:00:00 AM EDT tablet 1 TAKE 1 TABLET BY MOUTH ONCE WEEKLY NEEDED FOR CHANO TAKE 1 TABLET BY MOUTH ONCE WEEKLY NE EDED FOR CHANO SOLD: 01/24/2020 [facility] Multivitamin 01/22/2020 02:45:17 PM EDT 1 TAB [facility] Multivitamin 01/22/2020 02:45:17 PM EDT 1 TAB [facility] Multivitamin 01/22/2020 02:45:17 PM EDT 1 TAB comp [facility] Multivitamin 01/22/2020 02:45:17 PM EDT 1 TAB [facility] Multivitamin 01/22/2020 02:45:17 PM EDT 1 TAB comp [facility] Multivitamin 01/22/2020 02:45:17 PM EDT 1 TAB comp [facility] Multivitamin 01/22/2020 02:45:17 PM EDT 1 TAB [facility] Multivitamin 01/22/2020 02:45:17 PM EDT 1 TAB [facility] Multivitamin 01/22/2020 02:45:17 PM EDT 1 TAB [facility] 5 mg 01/20/2020 12:00:00 AM EST tablet 30 TAKE ONE TABLET BY MOUTH THREE TIMES A DAY NEEDED FOR MUSCLE SPASMS TAKE ONE TABLET BY MOUTH THREE TIMES A DAY NEEDED FOR MUSCLE SPASMS SOLD: 02/01/2020 [facility] 10 mg 01/20/2020 12:00:00 AM EST tablet 20 TAKE ONE TABLET BY MOUTH EVERY 6 HOURS NEEDED FOR PAIN TAKE ONE TABLET BY MOUTH EVERY 6 HOURS A S NEEDED FOR PAIN SOLD: 02/01/2020 [facility] Amoxicillin 500 MG Oral Capsule Amoxicillin 500 MG Oral Caps ule 12/29/2019 12:00:00 AM EST 1 active Amoxicil gurinder 500 MG Oral Capsule [facility] Fluconazole 150 MG Oral Tablet [Diflucan] Diflucan 150 MG Oral Tablet Diflucan 150 MG Oral Tablet 12/29/2019 12:00:00 AM EST active Fluconazole 150 MG Oral Tablet [Diflucan] [facility]) Fluconazole 150 MG Oral Tablet Fluconazole 11/05/2019 11:00:50 AM EST 150 MG completed [facility] Fluconazole 150 MG Oral Tablet Fluconazole 11/05/2019 11:00:50 AM EST 150 MG completed [facility] Fluconazole 150 MG Oral Tablet Fluconazole 11/05/2019 11:00:50 AM EST 150 MG completed [facility] Fluconazole 150 MG Oral Tablet Fluconazole 11/05/2019 11:00:50 AM EST 150 MG completed [facility] Fluconazole 150 MG Oral Tablet Fluconazole 11/05/2019 11:00:50 AM EST 150 MG completed [facility] Fluconazole 150 MG Oral Tablet Fluconazole 11/05/2019 11:00:50 AM EST 150 MG completed [facility] Fluconazole 150 MG Oral Tablet Fluconazole 11/05/2019 11:00:50 AM EST 150 MG completed [facility] Fluconazole 150 MG Oral Tablet Fluconazole 11/05/2019 11:00:50 AM EST 150 MG completed [facility] Fluconazole 150 MG Oral Tablet Fluconazole 11/05/2019 11:00:50 AM EST 150 MG completed [facility] 150 mg 11/05/2019 12:00:00 AM EST tablet 1 TAKE 1 TABLET BY MOUTH FOR SINGLE DOSE TAKE 1 TABLET BY MOUTH FOR SINGLE DOSE SOLD: 11/05/2019 [facility] Amoxicillin 875 MG / Clavulanate 125 MG Oral Tablet Am oxicillin-Pot Clavulanate Amoxicillin-Pot Clavulanate 11/01/2019 12:33:30 PM EST 1 TAB [facility] Amoxicillin 875 MG / Clavulanate 125 MG Oral Tablet Am oxicillin-Pot Clavulanate Amoxicillin-Pot Clavulanate 11/01/2019 12:33:30 PM EST 1 TAB [facility] Amoxicillin 875 MG / Clavulanate 125 MG Oral Tablet Am oxicillin-Pot Clavulanate Amoxicillin-Pot Clavulanate 11/01/2019 12:33:30 PM EST 1 TAB [facility] Amoxicillin 875 MG / Clavulanate 125 MG Oral Tablet Am oxicillin-Pot Clavulanate Amoxicillin-Pot Clavulanate 11/01/2019 12:33:30 PM EST 1 TAB [facility] Amoxicillin 875 MG / Clavulanate 125 MG Oral Tablet Amoxicillin-Pot Clavulanate (Augmentin) 875-125 mg tablet Amoxicillin-Pot Clavulanate (Augmentin) 875-125 mg tablet 11/01/2019 12:33:30 PM EST 1 TAB [facility] Amoxicillin 875 MG / Clavulanate 125 MG Oral Tablet Amoxicillin-Pot Clavulanate (Augmentin) 875-125 mg tablet Amoxicillin-Pot Clavulanate (Augmentin) 875-125 mg tablet 11/01/2019 12:33:30 PM EST 1 TAB completed [facility] Amoxicillin 875 MG / Clavulanate 125 MG Oral Tablet Am oxicillin-Pot Clavulanate Amoxicillin-Pot Clavulanate 11/01/2019 12:33:30 PM EST 1 TAB completed [facility] Amoxicillin 875 MG / Clavulanate 125 MG Oral Tablet Amoxicillin-Pot Clavulanate (Augmentin) 875-125 mg tablet Amoxicillin-Pot Clavulanate (Augmentin) 875-125 mg tablet 11/01/2019 12:33:30 PM EST 1 TAB completed [facility] Amoxicillin 875 MG / Clavulanate 125 MG Oral Tablet Am oxicillin-Pot Clavulanate Amoxicillin-Pot Clavulanate 11/01/2019 12:33:30 PM EST 1 TAB completed [facility] Metronidazole 500 MG Oral Tablet Metronidazole 11/01/2019 12:33:17 PM EST 500 MG [facility] Metronidazole 500 MG Oral Tablet Metronidazole 11/01/2019 12:33:17 PM EST 500 MG completed [facility] Metronidazole 500 MG Oral Tablet Metronidazole 11/01/2019 12:33:17 PM EST 500 MG [facility] Metronidazole 500 MG Oral Tablet Metronidazole 11/01/2019 12:33:17 PM EST 500 MG [facility] Metronidazole 500 MG Oral Tablet Metronidazole 11/01/2019 12:33:17 PM EST 500 MG [facility] Metronidazole 500 MG Oral Tablet Metronidazole 11/01/2019 12:33:17 PM EST 500 MG [facility] Metronidazole 500 MG Oral Tablet Metronidazole 11/01/2019 12:33:17 PM EST 500 MG [facility] Metronidazole 500 MG Oral Tablet Metronidazole 11/01/2019 12:33:17 PM EST 500 MG [facility] Metronidazole 500 MG Oral Tablet Metronidazole 11/01/2019 12:33:17 PM EST 500 MG [facility] 875-125 mg 11/01/2019 12:00:00 AM EST tablet 14 TAKE ONE TABLET BY MOUTH TWICE A DAY TAKE ONE TABLET BY MOUTH TWICE A DAY SOLD: 11/01/2019 [facility] 500 mg 11/01/2019 12:00:00 AM EST tablet 14 TAKE ONE TABLET BY MOUTH TWICE A DAY FOR 7 DAYS TAKE ONE TABLET BY MOUTH TWICE A DAY FOR 7 DAYS SOLD: 11/01/2019 [facility] Cyclobenzaprine hydrochloride 5 MG Oral Tablet Cyclobenzaprine HCl 5 MG Oral Tablet (FLEXERIL) Cyclobenzaprine HCl 5 MG Oral Tablet (FLEXERIL) 2018 12:00:00 AM EST 5 mg Oral active Take 1 tablet by mouth nightly as needed for Muscle spasms [facility] Amoxicillin 500 MG Oral Capsule Amoxicillin 500MG Oral Capsule Amoxicillin 500MG Oral Capsule 09/25/2019 12:00:00 AM EST 1 abor lorraine Amoxicillin 500 MG Oral Capsule [facility] Fluconazole 150 MG Oral Tablet [Diflucan] Diflucan 150 MG Oral Tablet Diflucan 150MG Oral Tablet 09/25/2019 12:00:00 AM EST aborted Fluconazole 150 MG Oral Tablet [Diflucan] [facility]) Levothyroxine Sodium 0.025 MG Oral Tablet Levothyroxine 09/06/2019 04:02:49 PM EDT 25 MCG completed [facility] Levothyroxine Sodium 0.025 MG Oral Tablet Levothyroxine 09/06/2019 04:02:49 PM EDT 25 MCG completed [facility] Levothyroxine Sodium 0.025 MG Oral Tablet Levothyroxine 09/06/2019 04:02:49 PM EDT 25 MCG completed [facility] Levothyroxine Sodium 0.025 MG Oral Table t Levothyroxine (Synthroid) 25 mcg tablet Levothyroxine (Synthroid) 25 mcg tablet 09/06/2019 04:02:49 PM E DT 25 MCG completed [facility] Levothyroxine Sodium 0.025 MG Oral Tablet Levothyroxine 09/06/2019 04:02:49 PM EDT 25 MCG completed [facility] Levothyroxine Sodium 0.025 MG Oral Tablet Levothyroxine 09/06/2019 04:02:49 PM EDT 25 MCG completed [facility] Levothyroxine Sodium 0.025 MG Oral Table t Levothyroxine (Synthroid) 25 mcg tablet Levothyroxine (Synthroid) 25 mcg tablet 09/06/2019 04:02:49 PM E DT 25 MCG completed [facility] Levothyroxine Sodium 0.025 MG Oral Table t Levothyroxine (Synthroid) 25 mcg tablet Levothyroxine (Synthroid) 25 mcg tablet 09/06/2019 04:02:49 PM E DT 25 MCG completed [facility] Levothyroxine Sodium 0.025 MG Oral Tablet Levothyroxine 09/06/2019 04:02:49 PM EDT 25 MCG completed [facility] Levonorgestrel 0.196176 MG/HR Drug Implant Levonorgestrel 09/06/2019 02:53:14 PM EDT completed [facility] Levonorgestrel 0.398685 MG/HR Drug Implant Levonorgestrel 09/06/2019 02:53:14 PM EDT completed [facility] Levonorgestrel 0.339482 MG/HR Drug Impla nt Levonorgestrel (Mirena) 20 mcg/24 hours (5 yrs) 52 mg intrauterine device Levonorgestrel (Mirena) 20 mcg/24 hours (5 yrs) 52 mg intrauterine device 09/06/2019 02:53:14 PM EDT completed [facility] Levonorgestrel 0.908561 MG/HR Drug Impla nt Levonorgestrel (Mirena) 20 mcg/24 hours (5 yrs) 52 mg intrauterine device Levonorgestrel (Mirena) 20 mcg/24 hours (5 yrs) 52 mg intrauterine device 09/06/2019 02:53:14 PM EDT completed [facility] Levonorgestrel 0.647546 MG/HR Drug Impla nt Levonorgestrel (Mirena) 20 mcg/24 hours (5 yrs) 52 mg intrauterine device Levonorgestrel (Mirena) 20 mcg/24 hours (5 yrs) 52 mg intrauterine device 09/06/2019 02:53:14 PM EDT completed [facility] Levonorgestrel 0.163977 MG/HR Drug Implant Levonorgestrel 09/06/2019 02:53:14 PM EDT completed [facility] 25 mcg 09/06/2019 12:00:00 AM EDT tablet 30 TAKE ONE TABLET BY MOUTH EVERY DAY TAKE ONE TABLET BY MOUTH EVERY DAY SOLD: 11/05/2019 [facility] Levothyroxine Sodium 0.025 MG Oral Table t levothyroxine (SYNTHROID, LEVOTHROID) 25 MCG tablet levothyroxine (SYNTHROID, LEVOTHROID) 25 MCG tablet 25 ug Oral aborted Take 25 mcg by mouth daily [facility] Levonorgestrel 0.226658 MG/HR Drug Impla nt levonorgestrel (MIRENA, 52 MG,) 20 MCG/24HR IUD levonorgestrel (MIRENA, 52 MG,) 20 MCG/24HR IUD 1 {each} Intrauterine aborted 1 each by Intraut erine route once [facility] Insurance Providers Payer name Policy type / Coverage type Policy ID Covered alliance party ID Covered alliance party's relationship to redman Policy Redman Plan Information [facility] [id number] SP [id number] [facility] [id number] [facility] MED[facility] [id number] Kaela [id number] [facility] [place] [id number] SP [id number] [facility]) O [id number] S [id number] [facility] I [id number] Self [id number] [place] PPO [id number] [employer] Other 0 Self 0 [employer] Other 0 Self 0 [facility] U [id number] Self [id number] [employer] Other 0 Self 0 [employer] Other 0 Self 0 MEDICAID M [id number] Self [id number] EXCELLUS C [id number] Spouse [id number] BCBS CNY O [id number] U 57 MEDICAID W [id number] S [id number] BLUE CHOICE OPTION O [id number] S [id number] BLUE CROSS BLUE SHIELD-PHYSICIAN [id number] 01 [id number] BLUE CROSS BLUE SHIELD-O/P [id number] 01 [id number] BLUE CROSS BLUE SHIELD-CLINIC [id number] Problems, Conditions, and Diagnoses Code Display Name Description Problem Type Effective Dates Data Source(s) R39.82 [id number] Chronic bladder pain Problem 12:00:00 AM EST eC1 (Formerly [facility], 1928–1983) Q21.1 Patent foramen ovale with atrial septal aneurysm Patent foramen ovale with atrial septal aneurysm [id number] 11/15/2020 12:00:00 AM [facility] D73.5 Splenic infarct Splenic infarct [id number] 11/12/2020 12:0 0:00 AM [facility] 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 E28.2 PCOS (polycystic ovarian syndrome) PCOS (polycys tic ovarian syndrome) [id number] 11/12/2020 12:00:[address] [facility] Q21.1 Ostium secundum type atrial septal defec t Ostium secundum type atrial septal defect [id number] 10/24/2020 12:00:00 AM [facility] K76.9 Chronic nonalcoholic liver disease Chronic nonal coholic liver disease [id number] 10/24/2020 12:00:[address] [facility] E66.9 Obesity Obesity [id number] 10/24/2020 12:00:00 AM [facility] [id number] Ostium secundum type atrial septal defec t Ostium secundum type atrial septal defect Problem 10/24/2020 12:00:00 AM EST [facility] ([facility] [id number] Obesity Obesity Problem 10/24/2020 12:00:00 AM ES T [facility] ([facility]) [id number] Dietary management surveillance Dietary manageme nt surveillance Problem 10/24/2020 12:00:00 AM EST [facility] ([facility] [id number] Chronic nonalcoholic liver disease Chronic nonal coholic liver disease Problem 10/24/2020 12:00:00 AM EST [facility] ([facility] M32.9 [id number] Systemic lupus eryth ematosus, unspecified SLE type, unspecified organ involvement status Problem 10/01/2020 12:00:00 AM EST eCW1 ([facility]) E28.2 [id number] PCOS (polycystic ovarian syndrome) Proble m 08/15/2020 12:00:00 AM EDT eCW1 ([facility], 1928–[facility]) K76.9 Liver disease, unspecified Liver disease, unspecified Diagnosis 11/12/2020 03:27:42 PM EST [facility] E66.9 Obesity, unspecified Obesity, unspecified Diagnosis 11/12/2020 03:27:42 PM EST [facility] M32.9 Systemic lupus erythematosus, unspecifie d Systemic lupus erythematosus, unspecifie Diagnosis 11/12/2020 03:27:42 PM EST [facility] E28.2 Polycystic ovarian syndrome Polycystic ovarian syndrom e Diagnosis 11/12/2020 03:27:42 PM EST [facility] D73.5 Infarction of spleen Infarction of spleen Diagnosis 11/12/2020 03:27:42 PM EST [facility] E06.3 Autoimmune thyroiditis Autoimmune thyroiditis Diagnosi s 11/12/2020 03:27:42 PM EST [facility] E03.8 Other specified hypothyroidism Other specified hypothy roidism Diagnosis 11/12/2020 03:27:42 PM EST [facility] Q21.1 Atrial septal defect Atrial septal defect Diagnosis 11/12/2020 03:27:42 PM EST [facility] K76.0 Fatty (change of) liver, not elsewhere c lassified Fatty (change of) liver, not elsewhere c Diagnosis 11/12/2020 03:27:42 PM EST [facility] Surgeries/Procedures Procedure Description Date Indications Data Source(s) ECG ROUTINE ECG W/LEAST 12 LDS W/I&R POCT AMB EKG Routine 11/12/2020 4:00 PM EST Patent foramen ovale with atrial septal aneurysm 11/12/2020 09:00:00 PM EST Patent foramen ovale with atrial septal aneurysm [facility] Patent foramen ovale with atrial septal aneurysm ECG ROUTINE ECG W/LEAST 12 LDS W/I&R 10/24/2020 12:00: 00 AM EST [facility] ([facility]) Single contrast barium enema (procedure) 05/30/2020 12 :41:00 PM EDT [facility] Single contrast barium enema (procedure) 05/30/2020 12 :41:00 PM EDT [facility] Pelvic echography (procedure) 04/23/2020 12:30:00 PM E [facility] Pelvic echography (procedure) 04/23/2020 12:30:00 PM E [facility] Pelvic echography (procedure) 04/23/2020 12:30:00 PM E [facility] Computed tomography of abdomen and pelvis with contrast (pro cedure) [facility] with contrast (pro cedure) 03/19/2020 05:01:00 PM EDT [facility] Computed tomography of abdomen and pelvis with contrast (pro cedure) 03[facility]19[facility] and [facility] with contrast (pro cedure) 03/19/2020 05:01[facility] and pelvis with contrast (pro cedure) 03/19/2020 05:01:00 PM [facility] Bacterial culture (procedure) 02/01/2020 12:00:00 AM E [facility] Bacteria identification test (procedure) 02/01/2020 12 :00:00 AM [facility] Bacterial culture (procedure) 02/01/2020 12:00:00 AM E [facility] Bacteria identification test (procedure) 02/01/2020 12 :00:00 AM [facility] Bacterial culture (procedure) 02/01/2020 12:00:00 AM E [facility] Bacteria identification test (procedure) 02/01/2020 12 :00:00 AM [facility] Bacterial culture (procedure) 02/01/2020 12:00:00 AM E [facility] Bacteria identification test (procedure) 02/01/2020 12 :00:00 AM EDT [facility] Bacterial culture (procedure) 02/01/2020 12:00:00 AM E [facility] Bacteria identification test (procedure) [facility]2020 12:00:00 AM E [facility] Bacteria identification test (procedure) 02/01/2020 12 :00:00 AM EDT [facility] Pelvic echography (procedure) 01/22/2020 06:42:00 PM E [facility] Pelvic echography (procedure) 01/22/2020 06:42:00 PM E [facility] Pelvic echography (procedure) 01/22/2020 06:42:00 PM E [facility] Pelvic echography (procedure) 01/22/2020 06:42:00 PM E [facility] Pelvic echography (procedure) 01/22/2020 06:42:00 PM E [facility] Pelvic echography (procedure) 01/22/2020 06:42:00 PM E [facility] Pelvic echography (procedure) 01/22/2020 06:42:00 PM E [facility] Pelvic echography (procedure) 01/22/2020 06:42:00 PM E [facility] Urine culture (procedure) [facility] 01/22/2020 12:00:00 AM [facility] Urine culture (procedure) 01/22[facility]2020 [facility]2020 [facility] 01/22/2020 12:00:00 AM [facility] Urine culture (procedure) 01/22/2020 12:00:00 AM [facility] Urine culture (procedure) 01/22/2020 12:00:00 AM [facility] Pelvic echography (procedure) 11/05/2019 01:48:00 PM E [facility] Pelvic echography (procedure) 11/05/2019 01:48:00 PM E [facility] Pelvic echography (procedure) 11/05/2019 01:48:00 PM E [facility] Pelvic echography (procedure) 11/05/2019 01:48:00 PM E [facility] Pelvic echography (procedure) 11/05/2019 01:48:00 PM E [facility] Pelvic echography (procedure) 11/05/2019 01:48:00 PM E [facility] Pelvic echography (procedure) 11/05/2019 01:48:00 PM E [facility] Pelvic echography (procedure) 11/05/2019 01:48:00 PM E [facility] Results ID Date Data Source [id number] 11/25/2020 09:52:00 AM [facility] BR[facility] NOTERESULT: [id number] variant not detectedSEE NOTEINTERPRETATION: This individual is negative (normal) for [id number] variant in the Prothrombin/Factor II gene. Increasedrisk of thrombophilia can be caused by a variety of geneticand non-genetic factors not screened for by this assay.Laboratory testing supervised and results monitored byJuana Panchal, Ph.D., [facility], [facility].The V17589Y mutation [VR204167.1: g.61642T>A (c.*97G>A)] inthe Prothrombin/Factor II gene is the second most commoninherited risk factor for thrombosis occurring inapproximately 2% of Caucasians. Presence of the mutation isassociated with an elevation of prothrombin levels to about30% above normal in heterozygotes and to 70% above normal inhomozygotes.Prothrombin (W47745P) mutations are detected byamplification of their selected gene regions by polymerasechain reaction (PCR) and fluorescent probe hybridization tothe targeted region, followed by melting curve analysis witha real time PCR system. Although rare, false positive orfalse negative results may occur. All results should beinterpreted in context of clinical findings, relevanthistory, and other laboratory data.Health care providers, please contact your local [facility]' genetic counselor or call [phone]) for assistance with interpretation of theseresults.This test was developed and its analytical performancecharacteristics have been determined by [facility] [place]. It has not beencleared or approved by FDA. This assay has been validatedpursuant to the CLIA regulations and is used for clinicalpurposes.THIS TEST WAS PERFORMED AT:[employer]/[place] [id number] [address]VZPPPJASON AYON MD,PHD,ONI [facility] Name Value Range Interpretation Code Description Data Jodie rce(s) Supporting Document(s) Leukocytes [#/volume] in Blood by Automated count 8.0 10*3/uL 4.45-10 .71 N [facility] Erythrocytes [#/volume] in Blood by Automated count 4.41 10*6/uL 4.20 -5.40 N [facility] Hemoglobin [Moles/volume] in Blood 13.3 g/dL 10.7-15.4 N [facility] Hematocrit [Volume Fraction] of Blood by Automated count 41.6 % 3 7-47 N [facility] Erythrocyte mean corpuscular volume [Ent itic volume] in Cord blood by Automated count 94.3 fL 80-96 N [facility] Erythrocyte mean corpuscular hemoglobin [Entitic mass] by Automated count 30.2 pg 27-31 N [facility] Erythrocyte mean corpuscular hemoglobin concentration [Mass/volume] in Cord blood 32.0 g/dL 33-37 Below low normal [facility] Erythrocyte distribution width [Entitic volume] by Automated count 12 % 11-15 N [facility] Platelets [#/volume] in Blood by Automated count 305 10*3/uL 130-472 N [facility] Platelet mean volume [Entitic volume] in Blood 10.4 fL 9.1-13.1 N [facility] Neutrophils/100 leukocytes in Blood by Automated count 54.5 % 41- 77 N [facility] Neutrophils [#/volume] in Blood by Automated count 4.4 U 1.7-7.6 N [facility] Lymphocytes/100 leukocytes in Blood by Automated count 32.4 % 14- 46 N [facility] Lymphocytes [#/volume] in Blood by Automated count 2.6 U 0.6-4.6 N [facility] Monocytes/100 leukocytes in Blood by Automated count 6.7 % 4-12 N [facility] Monocytes [#/volume] in Blood by Automated count 0.5 U 0.2-1.2 N [facility] Eosinophils/100 leukocytes in Blood by Automated count 5.7 % 0-7 N [facility] Eosinophils [#/volume] in Blood by Automated count 0.5 U 0.0-0.5 N [facility] Basophils/100 leukocytes in Blood by Automated count 0.5 % 0.4-1 .3 N [facility] Basophils [#/volume] in Blood by Automated count 0.0 U 0.0-0.2 N [facility] NUCLEATED RED BLOOD CELL 0 % [facility] NUCLEATED RED BLOOD CELL# 0 U [facility] Immature granulocytes [Presence] in Blood by Automated count 0-2 N [facility] Immature granulocytes [#/volume] in Blood by Automated count 0.0 U 0-0.1 N [facility] Manual Differential panel - Blood NO [facility] ID Date Data Source [id number] 11/25/2020 10:37:00 AM EST [facility] BRSEE NOTERESULT: [id number] variant not detectedSEE NOTEINTERPRETATION: This individual is negative (normal) for [id number] variant in the Prothrombin/Factor II gene. Increasedrisk of thrombophilia can be caused by a variety of geneticand non-genetic factors not screened for by this assay.Laboratory testing supervised and results monitored Daniela Panchal, Ph.D., [facility], [facility].The R97106U mutation [JJ610308.1: g.77820K>A (c.*97G>A)] inthe Prothrombin/Factor II gene is the second most commoninherited risk factor for thrombosis occurring inapproximately 2% of Caucasians. Presence of the mutation isassociated with an elevation of prothrombin levels to about30% above normal in heterozygotes and to 70% above normal inhomozygotes.Prothrombin (S61506N) mutations are detected byamplification of their selected gene regions by polymerasechain reaction (PCR) and fluorescent probe hybridization tothe targeted region, followed by melting curve analysis witha real time PCR system. Although rare, false positive orfalse negative results may occur. All results should beinterpreted in context of clinical findings, relevanthistory, and other laboratory data.Health care providers, please contact your local [facility]' genetic counselor or call [phone]) for assistance with interpretation of theseresults.This test was developed and its analytical performancecharacteristics have been determined by [facility] [place]. It has not beencleared or approved by FDA. This assay has been validatedpursuant to the CLIA regulations and is used for clinicalpurposes.THIS TEST WAS PERFORMED AT:[employer] [id number] [facility] [place] [address]MCHFEJASON AYON MD,PHD,ONI [facility] Name Value Range Interpretation Code Description Data Jodie rce(s) Supporting Document(s) C reactive protein [Mass/volume] in Serum or Plasma 3.8 mg/L 0.0-5. 0 N [facility] ID Date Data Source [id number] 11/29/2020 04:27:00 [facility]: [id number] variant not detectedSEE NOTEINTERPRETATION: This individual is negative (normal) for [id number] variant in the Prothrombin/Factor II gene. Increasedrisk of thrombophilia can be caused by a variety of geneticand non-genetic factors not screened for by this assay.Laboratory testing supervised and results monitored Daniela Panchal, Ph.D., [facility], [facility].The P92621X mutation [VJ427051.1: g.05840P>A (c.*97G>A)] inthe Prothrombin/Factor II gene is the second most commoninherited risk factor for thrombosis occurring inapproximately 2% of Caucasians. Presence of the mutation isassociated with an elevation of prothrombin levels to about30% above normal in heterozygotes and to 70% above normal inhomozygotes.Prothrombin (B07884V) mutations are detected byamplification of their selected gene regions by polymerasechain reaction (PCR) and fluorescent probe hybridization tothe targeted region, followed by melting curve analysis witha real time PCR system. Although rare, false positive orfalse negative results may occur. All results should beinterpreted in context of clinical findings, relevanthistory, and other laboratory data.Health care providers, please contact your local [facility]' genetic counselor or call [phone]) for assistance with interpretation of theseresults.This test was developed and its analytical performancecharacteristics have been determined by [facility]. It has not beencleared or approved by FDA. This assay has been validatedpursuant to the CLIA regulations and is used for clinicalpurposes.THIS TEST WAS PERFORMED AT:[employer] [id number] [place] [address]TRWAHJASON AYON MD,PHD,ONI [facility] Name Value Range Interpretation Code Description Data Jodie rce(s) Supporting Document(s) Cardiolipin IgG Ab in Serum 17 GPL Above high normal [facility] Value Interpretation ----- < or = 14 Negative 15 - 20 Indeterminate 21 - 80 Low to Medium Positive >80 High Positive Cardiolipin IgA Ab in Serum <11 [facility] Value Interpretation ----- < or = 11 Negative 12 - 20 Indeterminate 21 - 80 Low to Medium Positive >80 High Positive Cardiolipin IgM Ab in Serum 13 MPL Above high normal [facility] Value Interpretation ----- < or = 12 Negative 13 - 20 Indeterminate 21 - 80 Low to Medium Positive > 80 High PositiveThe antiphospholipid antibody syndrome (APS) is aclinical-pathologic correlation that includes aclinical event (e.g. thrombosis, loss,thrombocytopenia) and persistent positiveantiphospholipid antibodies(IgM or IgG AWILDA >40 MPL/GPL, IgM or IgG anti-m8TUTtrdnwnlxun or a lupus anticoagulant). Internationalconsensus guidelines for APS suggest waiting at least12 weeks before retesting to confirm antibodypersistence. The Systemic Lupus International[facility]ating [facility] immunological classificationcriteria for systemic lupus erythematosus (SLE)include testing for isotype IgA, which has yet to beincorporated into APS criteria. Low levelantiphospholipid antibodies may sometimes be detectedin the setting of infection, drug therapy or aging.THIS TEST WAS PERFORMED AT:[employer] [address]OMWEUJ MERATI,MD ID Date Data Source [id number] 11/25/2020 10:37:00 AM [facility] BR BRFORMERLY [facility] BRSEE NOTERESULT: [id number] variant not detectedSEE NOTEINTERPRETATION: This individual is negative (normal) for [id number] variant in the Prothrombin/Factor II gene. Increasedrisk of thrombophilia can be caused by a variety of geneticand non-genetic factors not screened for by this assay.Laboratory testing supervised and results monitored byJuana Panchal, Ph.D., [facility], [facility].The N88706Q mutation [CT293740.1: g.99437J>A (c.*97G>A)] inthe Prothrombin/Factor II gene is the second most commoninherited risk factor for thrombosis occurring inapproximately 2% of Caucasians. Presence of the mutation isassociated with an elevation of prothrombin levels to about30% above normal in heterozygotes and to 70% above normal inhomozygotes.Prothrombin (C05699K) mutations are detected byamplification of their selected gene regions by polymerasechain reaction (PCR) and fluorescent probe hybridization tothe targeted region, followed by melting curve analysis witha real time PCR system. Although rare, false positive orfalse negative results may occur. All results should beinterpreted in context of clinical findings, relevanthistory, and other laboratory data.Health care providers, please contact your local [employer]' genetic counselor or call [phone]) for assistance with interpretation of theseresults.This test was developed and its analytical performancecharacteristics have been determined by [facility] [place]. It has not beencleared or approved by FDA. This assay has been validatedpursuant to the CLIA regulations and is used for clinicalpurposes.THIS TEST WAS PERFORMED AT:[employer] [id number] [place] [address]CZKSDJASON AYON MD,PHD,ONI [facility] Name Value Range Interpretation Code Description Data Jodie rce(s) Supporting Document(s) Thyrotropin [Units/volume] in Serum or Plasma by Detec tion limit <= 0.005 mIU/L 2.34 u[iU]/mL 0.35-5.50 N [facility] al ID Date Data Source [id number] 11/29/2020 04:27:00 PM [facility]: [id number] variant not detectedSEE NOTEINTERPRETATION: This individual is negative (normal) for [id number] variant in the Prothrombin/Factor II gene. Increasedrisk of thrombophilia can be caused by a variety of geneticand non-genetic factors not screened for by this assay.Laboratory testing supervised and results monitored byJuana Panchal, Ph.D., [facility], [facility].The Z90334P mutation [MD246667.1: g.25750W>A (c.*97G>A)] inthe Prothrombin/Factor II gene is the second most commoninherited risk factor for thrombosis occurring inapproximately 2% of Caucasians. Presence of the mutation isassociated with an elevation of prothrombin levels to about30% above normal in heterozygotes and to 70% above normal inhomozygotes.Prothrombin (M24553Y) mutations are detected byamplification of their selected gene regions by polymerasechain reaction (PCR) and fluorescent probe hybridization tothe targeted region, followed by melting curve analysis witha real time PCR system. Although rare, false positive orfalse negative results may occur. All results should beinterpreted in context of clinical findings, relevanthistory, and other laboratory data.Health care providers, please contact your local [employer]' genetic counselor or call [phone]) for assistance with interpretation of theseresults.This test was developed and its analytical performancecharacteristics have been determined by [facility]. It has not beencleared or approved by FDA. This assay has been validatedpursuant to the CLIA regulations and is used for clinicalpurposes.THIS TEST WAS PERFORMED AT:[employer] [id number] [address] [place] [address]WEAZMJASON AYON MD,PHD,ONI [facility] Name Value Range Interpretation Code Description Data Jodie rce(s) Supporting Document(s) Protein S [Units/volume] in Platelet poor plasma by Co agulation assay 84 % normal 70-140 [facility] Protein S actual/normal in Platelet poor plasma by Coa gulation assay 97 % normal 50-147 [facility] l THIS TEST WAS PERFORMED AT:[employer] [facility]/[employer] [id number] [place] [address] MD,PHD ID Date Data Source [id number] 11/29/2020 04:27:00 PM EST [facility]: [id number] variant not detectedSEE NOTEINTERPRETATION: This individual is negative (normal) for [id number] variant in the Prothrombin/Factor II gene. Increasedrisk of thrombophilia can be caused by a variety of geneticand non-genetic factors not screened for by this assay.Laboratory testing supervised and results monitored Daniela Panchal, Ph.D., [facility], [facility].The Z51694G mutation [VO094524.1: g.52360K>A (c.*97G>A)] inthe Prothrombin/Factor II gene is the second most commoninherited risk factor for thrombosis occurring inapproximately 2% of Caucasians. Presence of the mutation isassociated with an elevation of prothrombin levels to about30% above normal in heterozygotes and to 70% above normal inhomozygotes.Prothrombin (D91830U) mutations are detected byamplification of their selected gene regions by polymerasechain reaction (PCR) and fluorescent probe hybridization tothe targeted region, followed by melting curve analysis witha real time PCR system. Although rare, false positive orfalse negative results may occur. All results should beinterpreted in context of clinical findings, relevanthistory, and other laboratory data.Health care providers, please contact your local [facility]' genetic counselor or call [phone]) for assistance with interpretation of theseresults.This test was developed and its analytical performancecharacteristics have been determined by [facility]. It has not beencleared or approved by FDA. 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 found [Identifier] in Blood or Tissue by Molecular genetics method [facility] INTERPRETATION: This individual is negat jadyn (normal) for theFactor V Leiden (R506Q) variant in the Factor V gene.Increased risk of thrombophilia can be caused by a varietyof genetic and non-genetic factors not screened for by thisassay.Laboratory testing supervised and results monitored by MD Drea, PhD, [facility], [facility].MUTATION ANALYSIS:The Factor V Leiden (R506Q) mutation [NM 242615.2: c.1601G>A(p.R534Q)] in the Factor V gene is one of the most commoncauses of inherited thrombophilia. This mutation causesresistance to degradation of activated Factor V protein byactivated protein C (APC). The Factor V Leiden (R506Q)mutation is detected by amplification of the selected regionof Factor V gene by polymerase chain reaction (PCR) andfluorescent probe hybridization to the targeted region,followed by melting curve analysis with a real time PCRsystem. Although rare, false positive or false negativeresults may occur. All results should be interpreted incontext of clinical findings, relevant history, and otherlaboratory data.This test was developed and its analytical performancecharacteristics have been determined by [facility] [place]. It has not beencleared or approved by FDA. This assay has been validatedpursuant to the CLIA regulations and is used for clinicalpurposes.Health care providers, please contact your local [employer] genetic counselor or call [phone]) for assistance with interpretation of theseresults.THIS TEST WAS PERFORMED AT:[employer] [id number] [facility] [place] [address]JASON AYON MD,PHD,ONI ID Date Data Source [id number] 11/29/2020 04:27:00 PM [facility] BR BRFORMERLY [facility] BRSEE NOTERESULT: [id number] variant not detectedSEE NOTEINTERPRETATION: This individual is negative (normal) for [id number] variant in the Prothrombin/Factor II gene. Increasedrisk of thrombophilia can be caused by a variety of geneticand non-genetic factors not screened for by this assay.Laboratory testing supervised and results monitored byJuana Panchal, Ph.D., [facility], [facility].The H04035P mutation [EZ344781.1: g.54936F>A (c.*97G>A)] inthe Prothrombin/Factor II gene is the second most commoninherited risk factor for thrombosis occurring inapproximately 2% of Caucasians. Presence of the mutation isassociated with an elevation of prothrombin levels to about30% above normal in heterozygotes and to 70% above normal inhomozygotes.Prothrombin (U81227F) mutations are detected byamplification of their selected gene regions by polymerasechain reaction (PCR) and fluorescent probe hybridization tothe targeted region, followed by melting curve analysis witha real time PCR system. Although rare, false positive orfalse negative results may occur. All results should beinterpreted in context of clinical findings, relevanthistory, and other laboratory data.Health care providers, please contact your local [facility]' genetic counselor or call [phone]) for assistance with interpretation of theseresults.This test was developed and its analytical performancecharacteristics have been determined by [facility] [place]. It has not beencleared or approved by FDA. This assay has been validatedpursuant to the CLIA regulations and is used for clinicalpurposes.THIS TEST WAS PERFORMED AT:[employer] [id number] [facility] [place] [address]BRKHYJASON AYON MD,PHD,ONI [facility] Name Value Range Interpretation Code Description Data Jodie rce(s) Supporting Document(s) ID Date Data Source [id number] 11/29/2020 04:27:00 PM [facility]: [id number] variant not detectedSEE NOTEINTERPRETATION: This individual is negative (normal) for [id number] variant in the Prothrombin/Factor II gene. Increasedrisk of thrombophilia can be caused by a variety of geneticand non-genetic factors not screened for by this assay.Laboratory testing supervised and results monitored byJuana Panchal, Ph.D., [facility].The [id number] mutation [AP655855.1: g.33466D>A (c.*97G>A)] inthe Prothrombin/Factor II gene is the second most commoninherited risk factor for thrombosis occurring inapproximately 2% of Caucasians. Presence of the mutation isassociated with an elevation of prothrombin levels to about30% above normal in heterozygotes and to 70% above normal inhomozygotes.Prothrombin (L93010A) mutations are detected byamplification of their selected gene regions by polymerasechain reaction (PCR) and fluorescent probe hybridization tothe targeted region, followed by melting curve analysis witha real time PCR system. Although rare, false positive orfalse negative results may occur. All results should beinterpreted in context of clinical findings, relevanthistory, and other laboratory data.Health care providers, please contact your local [employer] genetic counselor or call [phone]) for assistance with interpretation of theseresults.This test was developed and its analytical performancecharacteristics have been determined by [facility]. It has not beencleared or approved by FDA. This assay has been validatedpursuant to the CLIA regulations and is used for clinicalpurposes.THIS TEST WAS PERFORMED AT:[employer] [id number] [place] [address]EJUHJJASON AYON MD,PHD,[facility] Name Value Range Interpretation Code Description Data Jodie rce(s) Supporting Document(s) Protein C Ag in Platelet poor plasma 108 % 70-140 [facility] Units: % of normalTHIS TEST WAS PERFORME D AT:[employer] [id number] [place] [address] MD,PHD ID Date Data Source [id number] 11/29/2020 04:27:00 PM EST [facility] BRSEE NOTERESULT: [id number] variant not detectedSEE NOTEINTERPRETATION: This individual is negative (normal) for [id number] variant in the Prothrombin/Factor II gene. Increasedrisk of thrombophilia can be caused by a variety of geneticand non-genetic factors not screened for by this assay.Laboratory testing supervised and results monitored byJuana Panchal, Ph.D., [facility], [facility].The T39788D mutation [RJ524145.1: g.37244C>A (c.*97G>A)] inthe Prothrombin/Factor II gene is the second most commoninherited risk factor for thrombosis occurring inapproximately 2% of Caucasians. Presence of the mutation isassociated with an elevation of prothrombin levels to about30% above normal in heterozygotes and to 70% above normal inhomozygotes.Prothrombin (A53474P) mutations are detected byamplification of their selected gene regions by polymerasechain reaction (PCR) and fluorescent probe hybridization tothe targeted region, followed by melting curve analysis witha real time PCR system. Although rare, false positive orfalse negative results may occur. All results should beinterpreted in context of clinical findings, relevanthistory, and other laboratory data.Health care providers, please contact your local [employer]' genetic counselor or call [phone]) for assistance with interpretation of theseresults.This test was developed and its analytical performancecharacteristics have been determined by [facility]. It has not beencleared or approved by FDA. This assay has been validatedpursuant to the CLIA regulations and is used for clinicalpurposes.THIS TEST WAS PERFORMED AT:[employer] [id number] [place] [address]ETFZUJASON AYON MD,PHD,[facility] Name Value Range Interpretation Code Description Data Jodie rce(s) Supporting Document(s) Anti-Thrombin III Activity 91 % normal 80-[address] [facility] THIS TEST WAS PERFORMED AT:[employer] [id number] [place] [address] MD,PHD ID Date Data Source [id number] 11/29/2020 04:27:00 PM [facility] BRSEE NOTERESULT: [id number] variant not detectedSEE NOTEINTERPRETATION: This individual is negative (normal) for [id number] variant in the Prothrombin/Factor II gene. Increasedrisk of thrombophilia can be caused by a variety of geneticand non-genetic factors not screened for by this assay.Laboratory testing supervised and results monitored byJuana Panchal, Ph.D., [facility], [facility].The [id number] mutation [TZ594392.1: g.84181T>A (c.*97G>A)] inthe Prothrombin/Factor II gene is the second most commoninherited risk factor for thrombosis occurring inapproximately 2% of Caucasians. Presence of the mutation isassociated with an elevation of prothrombin levels to about30% above normal in heterozygotes and to 70% above normal inhomozygotes.Prothrombin (Q10378Z) mutations are detected byamplification of their selected gene regions by polymerasechain reaction (PCR) and fluorescent probe hybridization tothe targeted region, followed by melting curve analysis witha real time PCR system. Although rare, false positive orfalse negative results may occur. All results should beinterpreted in context of clinical findings, relevanthistory, and other laboratory data.Health care providers, please contact your local [employer]' genetic counselor or call [phone]) for assistance with interpretation of theseresults.This test was developed and its analytical performancecharacteristics have been determined by [facility]. It has not beencleared or approved by FDA. This assay has been validatedpursuant to the CLIA regulations and is used for clinicalpurposes.THIS TEST WAS PERFORMED AT:[employer]/[address]RA [id number] [place] [address]UPFSWJASON AYON MD,PHD,[facility] Name Value Range Interpretation Code Description Data Jodie rce(s) Supporting Document(s) Fibrinogen [Mass/volume] in Platelet poor plasma by Coagulat ion assay 290 mg/dL 175-425 [facility] THIS TEST WAS PERFORMED AT:[employer] [facility]/[address]RA [id number] [place] [address] MD,PHD ID Date Data Source [id number] 11/19/2020 08:21:00 AM [facility] Patient Name: ERYN NAVARRO LM : 1990 Sex: F Pt Unit #: [id number] Location:[facility] Provider: Visit Date/Time: 11/19/20 Primary Insurance: [facility] Secondary Insurance: Self Pay Intake Vital Signs 11/19/20 08:22 Current Height 5 ft 4 in Current Weight 223 lb Weight Measurement Method Standing Scale BMI 38.2 BP 138/86 Blood Pressure Location Lt brachial Position Sitting Respiration 18 Pulse 81 Pulse Strength Normal Pulse Source Pulse Oximeter Temp 98.1 F Temp Source Tympanic Pulse Oximetry (%) 96 Oxygen Delivery Method room air Intake Visit Reasons: Hospital Discharge Follow-up Nurse Note: 30 year old female presents today s/p hospital discharge from [facility] 09/22/20-09/26/20. Patients discharge diagnosis Splenic Infarct, Patent Foramen Ovale/Interatrial Septal Aneurysm. Rheumatology consult done and holding off on restarting Plaquenil until sees Pulmonology. Patient saw Cardiology and she is to be monitoring BP at home. Patient notes that she checks Bi-weekly 130'sover low 80's per patient. Patient notes Facility Examiner wants her to be referred for possible removal of diseased portion of her spleen. Patient needs referral to Pulmonology. Sex Therapist Required: No Accompanied by: Self / Same as Patient Allergies Sulfa (Sulfonamide Antibiotics) Allergy (Severe, Verified 06/18/20 12:59) COULD NOT BREATH SEASONAL ALLERGIES Allergy (Unknown, Verified 06/18/20 12:59) Medications - Last Reconciled 11/19/20 by Eryn Martinez NP aspirin (St Zen Aspirin) 81 mg PO QDAY multivitamin 1 tab PO QDAY Post menopausal: Yes Fall Risk History of falls: No Medications:: Analgesics (BabyAspirin QD) HIV Testing Offer - ages 13-64 HIV testing Offer: Yes Req uirement for HIV testing offer been met?: Declines today. Pretest education received and acknowledged SBIRT Annual Questionnaire Are you currently in recovery for alcohol or substance use?: No How many times in the past year have you had 4 or more drinks in a day?: None How many times in the past year have you used a recreational drug or used a prescription medication for nonmedical reasons?: None Do you need a note to return Do you need a note to return to daycare/school/sports/work: No Coronavirus Screening Screening Have you traveled outside of [facility] or [facility] in the last 14 days.: No Has patient experienced coronavirus symptoms: No PFSH Medical History (Updated 11/23/20 @ 13:55 by Eryn Martinez NP) ISRAEL positive Carpal tunnel syndrome on right (04/04/17) Educated about management of weight endometriosis Endometriosis determined by laparoscopy History of chronic cystitis Migraine with aura Pelvic pain PFO with atrial septal ane urysm PID Polycystic ovaries Seasonal allergic rhinitis SLE (systemic lupus erythematosus) Vertigo Vitamin D deficiency Surgical History Cholecystectomy (02/13/18) History of - surgery History of - surgery planters wart removal Status post tonsillectomy Family History Mother Systemic lupus erythematosus Depression Transient ischemic attack Father Diabetes mellitus, type 2 Brother No problems noted. 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 current occupational exposures/hazards: No Hx Recent Travel (where): No sexually active: Yes well-balanced diet: daily high-fat food intake: 0-1 times daily daily servings fruits/ve-4 daily servings of milk/calcium: 2-4 eating out: rarely or never reads food labels: usually or always during the past year weight has: increased > 10 lbs Smoking Status: Never smoker alcohol intake: current alcohol intake frequency: holidays/special occasions only substance use type: does not use seatbelt use: always helmet use: Yes drive intox or ride w/ intox 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 driver: No working smoke detector in home: Yes fire extinguisher in home: Yes carbon monox detector in home: Yes firearms in home: Yes firearms unloaded a nd locked: Yes do you feel safe at home: Yes victim of physical abuse: No victim of emotional abuse: No victim of sexual abuse: No would you like helpful sources: No Female Reproductive History Menstrual Age of Menarche: 10 Duration of menses: other control method: progestin IUCD Total pregnancies: 3 Ab induced: 0 Ab spontaneous: 0 Ectopics: 1 HPI Additional HPI HPI Details: 30-year-old female patient presents to clinic today for a hospital discharge follow-up. Patient was recently hospitalized with unexpected/unprovoked splenic infarct. Patient reports that she has a known history of systemic lupus erythematous, and has had previous care by rheumatology. However recently was not undergoing chronic care management. She reports that her family members have a significant history of autoimmune issues and her's was much less intense than their's was. She reports that she also has had a complete hysterectomy, and has been a longtime suffer of migraines. She reports that she has had an MRI of her head, however has never been referred or [place] neurologist. She states that she does not take triptans for migraine management or daily medication to prevent migraines as she would rather deal with the discomfort of the headache and theway the medications make her feel. Review of Systems Const Denies anorexia, Denies body aches, Denies chills, Denies excessive sweating, Denies fatigue, Deniesfever(s), Reports headache(s), Denies increased appetite, Denies poor appetite, Denies weakness, Denies weight gain and Denies weight loss Eyes Den ies change in vision, Denies eye discharge, Denies dry eyes, Denies floaters, Denies itchy eyes, Reports other visual disturbances (Visual aura with migraines), Denies seeing flashes and Denies photophobia ENT Denies vertigo, Denies dizziness, Denies otalgia, Reports headache(s), Denies hearing loss, Denies lip swelling, Denies nasal congestion, Denies nasal discharge, Denies neck pain, Denies odynophagia,Denies tinnitus, Denies sinus pain, Denies sore throat, Denies throat swelling and Denies tongue swelling Card Denies chest pain, Denies diaphoresis, Denies syncope, Denies edema, Denies irregular heart rhythm, Denies leg ulcers, Denies leg edema, Denies palpitations, Denies dyspnea, Denies dyspnea on exertionand Denies orthopnea Resp Denies chest congestion, Denies cough, Denies dyspnea and Denies dyspnea on exertion GI Denies melena, Denies hematochezia, Denies change in bowel habits, Denies constipation, Denies diarrhea, Denies nausea, Denies odynophagia and Denies vomiting Genitourinary: Denies hematuria, difficulty voiding, post void dribbling, dyspareunia, dysuria, pelvic pain, prolapse symptoms, flank pain, urinary frequency, urinary incontinence, urinary hesitancy, urinary urgency, vaginal dryness, vaginal odor or vaginal pruritus Musc Denies back pain, Denies myalgias, Denies arthralgias, Denies joint swelling, Denies muscle cramps, Denies muscle weakness, Denies neck pain and Denies numbness Skin/Breast Denies change in hair, Denies changing lesions, Denies dry skin, Denies hirsutism, Denies alopecia, Denies pruritus, Denies non-healing lesions, Denies photosensitivity, Denies skin pain, Denies skin ulcer, Denies unusual bruising and Denies wounds Neuro Denies abnormal movements, Denies abnormal speech, Denies behavioral changes, Denies confusion, Denies vertigo, Denies dizziness, Denies syncope, Reports headache(s), Denies localized weakness, Denies numbness, Denies other visual disturbances, Denies convulsions, Denies seizure-like activity,Denies paresthesias and Denies weakness Psych Denies anxiety, Denies behavioral changes, Denies confusion, Denies depression, Denies hopelessness,Denies mood swings, Denies hallucinations, Denies tactile hallucinations, Denies homicidal ideation and Denies suicidal ideation Endo Denies deepening of the voice, Denies excessive sweating, Denies fatigue, Denies increase in ring/shoe/hat size and Denies palpitations Leander/Lymph Denies easy bleeding, Denies easy bruising and Denies lymphadenopathy Aller/Immun Denies itchy eyes, Denies lip swelling, Denies throat swelling and Denies tongue swelling Exam Const General: cooperative, healthy appearing and no acute distress Nutritional Appearance: overweight Orientation: alert, awake and oriented x3 [place] Head: normal to inspection, normocephalic and atraumatic Ears: hearing grossly normal bilaterally, external ears normal, TM's normal bilaterally and EAC's normal General nose exam: external nose normal, nares normal, nasal mucous membranes and turbinates normal and septum normal Face and sinus: normal facial exam and face symmetric Mouth: oral mucosae normal, lip normal, tongue normal, oropharynx normal and moist mucous membranes Throat: posterior oropharynx normal and uvula midline Eyes Alignment and Position: alignment normal and position normal Periorbital: periorbital findings normal Eyelids: eyelids normal Conjunctivae: conjunctivae normal Sclera: sclerae normal Pupils: PERRL and normal by confrontation EOM: EOM intact bilaterally Neck Neck: normal visual inspection, full ROM, no lymphadenopathy, trachea midline and supple Chest Chest: normal palpation of entire chest wall Resp Effort Inspection: normal respiratory effort, able to speak in complete sentences, no audible wheezes, no cough, no grunting, not labored, no nasal flaring and no pursed lip breathing Auscultation: clear to auscultation bilaterally Cardio Rate: regular rate Rhythm: regular rhythm Heart Sounds: S1 normal, S2 normal, no click, no gallops, no murmurs and no rubs GI Inspection: Yes normal to inspection, No edema and Yes obesity Palpation: soft and no hepatosplenomegaly Auscultation: normal bowel sounds Musc Cervical Spine: normal cervical lordosis and cervical ROM normal Thoracic/Lumbar Spine: thoracic and lumbar spine normal to inspection and thoraco-lumbar ROM normal Pelvis: no pain with anterior-posterior compression and no pain with lateral compression Skin Lesions: no lesions Rashes: no rashes Trauma: no lacerations or abrasions Wounds: no wounds Hair: normal Nails: normal Neuro General: patient alert, patient awake, patient oriented x3 and normal light touch, pain and propioception Cranial Nerves: CN's II-XII intact bilaterally Cognition: normal cognition Speech: speech normal Gait: normal gait Motor: muscle tone normal throughout and strength 5/5 throughout Extrem General: normal to inspection, full ROM, capillary refill normal, no joint enlargement, no pedal edema and no calf tenderness Psych Appearance: grossly normal and well kempt Mental Status: mental status grossly normal Speech and Movement: speech and movement normal Mood: congruent mood Affect: normal affect Attitude: cooperative Thought Process: normal Thought Content: normal Results Urinalysis (DipStick) Urine Specific [place] 1.005 Last Edit by Silvana Zee on 11/19/20 09:27 Urine PH 6 Last Edit by Silvana Zee on 11/19/20 09:27 Urine Leukocytes NEGATIVE Last Edit by Silvana Zee on 11/19/20 09:27 Urine Nitrates NEGATIVE Last Edit by Silvana Zee on 11/19/20 09:27 Urine Protein NEGATIVE Last Edit by Silvana Zee on 11/19/20 09:2 7 Urine Ketones NEG mg/dl Last Edit by Silvana Zee on 11/19/20 09:27 Urine Urobilinogen NORMAL Last Edit by Silvana Zee on 11/19/20 09:27 Urine Blood NEGATIVE Last Edit by Silvana Zee on 11/19/20 09:27 Urine Hemoglobin NEGATIVE Last Edit by Silvana Zee on 11/19/20 09:27 Urine Glucose NORMAL Last Edit by Silvana Zee on 11/19/20 09:27 Urine Bilirubin NORMAL Last Edit by Silvana Zee on 11/19/20 09:27 Assessment Plan Assessment Plan (1) Hospital discharge follow-up: Code(s): Z09 - Encounter for follow-up examination after completed treatment for conditions other than malignant neoplasm Plan - Eryn Martinez NP: Examination complete. Please see documentation. (2) Splenic infarct: Status: Acute Comment: admitted [facility] 09/22/20,D/C 09/26/20 Code(s): D73.5 - Infarction of spleen SNOMED Code(s): 67794764 Category: Medical Plan - Eryn Martinez NP: This has been documented as a condition found during her recent hospitalization. It has been suggested to patient that she have disease/affected portion of spleen removed. Will refer to GI. We will also add some hypercoagulability labs. Will advise patient of lab results as they are available. Orders: Orders: CBC W AUTO DIFF Today Anticardiolipin Ab IgG,IgA,IgM 11/19/20 Factor II DNA Analysis (PCR) 11/19/20 Factor V Leiden Mutation 11/19/20 Protein C Antigen 11/19/20 AT3 Anti-Thrombin III Activity 11/19/20 Protein S Antigen, Tot/Free 11/19/20 CRP, C-REACTIVE PROTEIN 11/19/20 Fibrinogen Activity (Factor I) 11/19/20 Referrals: Gastroenterology Referral Hematology/Oncology Referral Pulmonary Referral (3) History of chronic cystitis: Status: Acute Code(s): Z87.448 - Personal history of other diseases of urinary system SNOMED Code(s): 187867757 Category: Medical Plan - Eryn Martinez NP: Patient reports that she has a history of interstitial cystitis. States that she was diagnosed by her story analyst. Will check urine today and will treat if infection is present. Will refer to urology for further evaluation. Orders: Referrals: Urology Referral (4) ISRAEL positive: Status: Acute SNOMED Code(s): 421575562 Category: Medical Plan - Eryn Martinez NP: Encouraged patient to continue scheduled follow-up with rheumatology. Discussed with her that condition can affect different organs of the body in different ways. (5) Rosendo's thyroiditis: Status: Acute Code(s): E06.3 - Autoimmune thyroiditis SNOMED Code(s): 55120532 Category: Medical Plan - Eryn Martinez NP: Will check a TSH. Will advise patient of results as they are available. Will encourage patient to follow-up with endocrine. Orders: Orders: Protein C Antigen 11/19/20 AT3 Anti-Thrombin III Activity 11/19/20 Protein S Antigen, Tot/Free 11/19/20 Referrals: Hematology/Oncology Referral (6) Migraine with aura and without status migrainosus, not intractable: Status: Chronic Onset Date: 03/11/16 Code(s): G43.109 - Migraine with aura, not intractable, without status migrainosus SNOMED Code(s): 0947086 Category: Medical Plan - Eryn Martinez NP: Advised patient that migraines are occasionally associated with infarcts of the brain cardiac or other organs. Discussed with her that since she has issues with organic infarcts and migraines and is never seen neurology it is important with her to follow-up with neurologist. Will refer to neurology and hematology as suggested by discharge instructions. Orders: Orders: AT3 Anti- Thrombin III Activity 11/19/20 Referrals: Hematology/Oncology Referral Neurology Referral (7) SLE (systemic lupus erythematosus): Status: Chronic Onset Date: 12/31/16 Code(s): M32.9 - Systemic lupus erythematosus, unspecified SNOMED Code(s): 37818146 Category: Medical Qualifiers: Systemic lupus erythematosus organ involvement: unspecified Systemic lupus erythematosus type: unspecified Qualified Code(s): M32.9 - Systemic lupus erythematosus, unspecified Orders: Orders: Protein C Antigen 11/19/20 AT3 Anti-Thrombin III Activity 11/19/20 Protein S Antigen, Tot/Free 11/19/20 Referrals: Hematology/Oncology Referral (8) PFO (patent foramen ovale): Status: Acute Code(s): Q21.1 - Atrial septal defect SNOMED Code(s): 669321430 Category: Medical Plan - Eryn Martinez ROTARY DRIER: Will refer to pulmonology as suggested by discharge instructions. Also encouraged patient to continue scheduled follow-ups with cardiology. Orders: Referrals: Pulmonary Referral (9) Dysuria: Status: Acute Code(s): R30.0 - Dysuria SNOMED Code(s): 58637458 Category: Medical Plan - Eryn Martinez ROTARY DRIER: Urine in the office is indicative of UTI. Will treat with Augmentin twice daily. We will also givemiconazole and fluconazole for yeast infection if needed as patient is prone to having vaginal yeastinfections. Discussed dosing/side effects/administration. Encourage patient to complete antibiotics and follow-up in the clinic if needed. Orders Other Medications: New: amoxicillin-pot clavulanate 875-125 mg 1 tab PO BID 14 tabs 0RF fluconazole take after antibiotic complete 150 mg PO .once 1 tab 0RF miconazole nitrate 2% (Miconazole 7) 1 appful vaginal .at hs 45 grams 0RF [place] [address] New Pt Extended Comp Patient Type New History Detailed Exam Detailed Medical Decision Making Moderate Complexity Diagnoses Hospital discharge follow-up Z09 Splenic infarct D73.5 History of chronic cystitis Z87.448 ISRAEL positive R76.8 Rosendo's thyroiditis E06.3 Migraine with aura and without status migrainosus, not intractable G43.109 SLE (systemic lupus erythematosus) M32.9 Systemic lupus erythematosus organ involvement: unspecified Systemic lupus erythematosus type: unspecified PFO (patent foramen ovale) Q21.1 Dysuria R30.0 <Electronically signed by Eryn Martinez ROTARY DRIER> 11/23/20 1401 Name Value Range Interpretation Code Description Data Jodie rce(s) Supporting Document(s) ID Date Data Source [id number] 10/08/2020 03:34:20 PM [facility] Name Value Range Interpretation Code Description Data Jodie rce(s) Supporting Document(s) Progress Note [facility] IZZSRb8qWbDZBxPs79/LVAovONPmw5EkYOtxBUi3NCixHGLdO0UoJQO5yI6cHPU3JOzMVrEgPiMxHCH6 [facility] TcNwnYEqNgZVNoVikCLwXcYCudAkhigVAxWE8EzHX0DSVjB64qLGIvWGTaY8NuGXMtBSI+Yc4HTUJpnX EuEM1LYjuO3C5di4yYZl9+uN2RMO06r3BIIlv9QseDIQKcHKP3A/RlIIsbuwpAfxLokjUWqx42NKX3JL P0CBf9bIloUbFihydc9PjsxctwYzZ/o8nBEIpdy7o/ 1b8Ca0wHVmZt/6Lqx4y+moses+ak5LEqPy3rIlL/mfxv/yhR+P1N5zT+GvpbPSlYHGXEWpLaKcxN9Vmbw1 [file] Y98clX+KCanY1AS1sc2Yf89S8exq/Mónica+w4E3j/DoYRu9jfsvihPUE9mCJ2AY/8Dv/42lj0PRA2cz0Ue [file] ID Date Data Source [id number] 10/07/2020 10:03:57 AM EST [facility] Name Value Range Interpretation Code Description Data Jodie rce(s) Supporting Document(s) Progress Note [facility] IYNBAa3nVhSZNgZm36/EOGazGEEmw2FmMXelIPp9KPezNKKfU3HlOSW7wP3kCPF3TCbNAbFzPhQzWLW3 lbm [file] AgICAgICAgICAgICAgICAgICAgICAgICAgICAgICAg DMTjPGEjWXBtZXQpARIqQASmBDQuRYSuLOYsSVLfWBVqYMOyEKHiNAUyMXZhDYFbNMUjWKXlVY3BSKNt ICAgICAgICAgICAgICAgICAgICAgICAgICAgICAgICAgICAgICAgICAgICAgICAgICAgICAgICAgICAg ICAgICAgICAgICAgICAgICAgICAgICAgICAgICAgIC YpJTRcBY2NDYMjKLIrHNYlAUUtKRDfQKIkEWLoHZAiKYFnKPXuRPUbUINpHAKwENSpUGZcMHTrIFVzWB NuXIXzAMMjODPuAPLlJETsQKLgCXTqFKHrGWExIKGpMPDxUZTsKAQaTGHfXUPqKC4FBPJhAOPgLLRcES AgICAgICAgICAgICAgICAgICAgICAgICAgICAgICAg CZFuOJDpUHTxUZKdRWWmRMJrMCRyNALzRCEbXUDxTUPxAAOmWKTaQJFiMQQhHBXwRNAvYCBaIRFkCO9H ICAgICAgICAgICAgICAgICAgICAgICAgICAgICAgICAgICAgICAgICAgICAgICAgICAgICAgICAgICAg ICAgICAgICAgICAgICAgICAgICAgICAgICAgICAgIC RsAYPpKQCeJR7VWCFiUCRmFHIjMAHyJGPePIDeMIAhISCeMNBeCTViTVOvLUNvOTFhBKIxOVWqCLZtAL IzZGBsWMGlVRAvYSTcBGAdRDTlOZQiVQQyCEPhJMQwKUPvULHtMKAjPCRrHWSpODGnLY3YCGSmTHEcWH AgICAgICAgICAgICAgICAgICAgICAgICAgICAgICAg ICAgICAgICAgICAgICAgICAgICAgICAgICAgICAgICAgICAgICAgICAgICAgICAgICAgICAgICAgICAg TX0QBEGlTHHgIBAxALNrSRTlRDJgFIRoZAAzBBEuGQHgAZLeBPWpEPZeALRyFJYpVYBiLOSeQHMeVPQn ICAgICAgICAgICAgICAgICAgICAgICAgICAgICAgIC QjLJTwAIPxUPMjES3EZPJyBREqSMYsLIPqDTSxYTGoKJEgLMUuUOGbPTVnAUZaMAJdPVZuOLAkLLBhCM NwDRVqFYOlYYUuEUTbULPjWVEuUTTiGNHrJFQhWNZhMUErMHDtOPPaUWFmSQDiMUSaYWCcEJ8FMV45nE Dsy6Q5MASmVD9xotf/Py7QKHxpwxUxjJNaNC3WDdIp ZM8lya6NVyYoKG4lwk2ISClZIgHpW4T2sWUcXKQzHWTWBzCsS54yGUpaHl55AYrwTFHpUiFfKFo1Rv0X GqLcQ0sjTFFfXiB0OWKyGaWjDGgqYA9Ts6AcyGKeJRy+My3PNB7ro5KhZYxsXMEgJV0swd7MXTqFGzHq S1JamsG5SZMyDGOlZo3NBFVbXLDsqMPcYFPtFNBWEz YgY7EgkL08JKBZDk5+TKzyeuIlHszLVdHhDTElq7LuQMe2HE4RMVXbBIv4wEIoWVAtE8Uxv9KkSv10UT BsWqkyIbqbtdvdb45kFDp0JLNDKEGekEPlXS6xWZ3aDLXxAXVnTnNrOFPTIU8FMLPsOFUlvSFeRZDoDM DTWL0OTCtwKIK5HRJjqcYniOEiXAtoMO1QDDMeygXy MTkgMCBSDQo+St8QWB2mx6NoGAryTFBhLY5sfm8UQZkCPdReC3L7qOYfB1X7YNkoZv1GONSyPELoKOhx PZZYIQwvNH2JJY3upjG4QS2WuZXaEWGhESPhoMQnHPb8N16jqZLdFKoeAD6AKCI+Manuel+Rp0YCWRlPUEp CIJbScZpHORWUmRqU4OyB9SAo6GvW3BpPE00vSnsym BaCSrvUX4OZN1zNFSrJRTCTG7AnGGjsW3qpbRyMTTrNAEUHbPkD92wwKVdRXVrXAG0TEGkPg4RXHEwO5 XnatVqzJgyvbPaRYFjVCQFUO3ASFgkilUmqEZfmJjuVA18pUeiQT8BTw3KTnElGE5ait2QaGViVq5NIS IqMz9QPNJwXRXyFMBhQHK6OTUmXbMjATouGYYiNXUq ENK9JDGlVITnWF8HPoFgWPNjRQU2TyWqXUXoERGkhp1CAIOmIFKtWNE3QGDgPHAmUZLsEIzjXREiXFSv EVL2XDZtGFAjUA8OSgNnQVFqPUY9GVeaGWZbMGJnug2AFTCgMEViSWrcKQIyEPBdFANtKSqoXPQoIKQg XfNoSEIaWCNsCS2ORrBcPJJgUHE3VGIvBJTpVHUnkv 0IRFRwZOGvPbOmZaLnERPyIKXdOOfrKGRfWRI0CSe5HHEwHBEoSC4ECoAnZXViYZBdOBEqJBZcCRZndj 0LAFPbYFVwFEV0KeMtSWBbYMTfWDrtHRXuFXS6GPQ3SQSbABAhOU9EKqJaNWGwHHCqQDNoDRElTLFaws 9LQHJrFSGlWlP1CkZdEWBqPQEySUdfEKHoWZD0ItLz KKEiFIQpXB4QYrRzCOXrFUM7FXwtTRIiALHekk7NMUMqPSSwTlQ6CVXmGMPvSLGhPZniHWUeMRQ9WHe1 ZCLmGBPzBZ5KVmOzPOPpBLn5KBhqMKElBCKcjo7UWAQyDBPfAIhvXzDnCFVfFMYeXGc5ivDggLIxISi0 LE5HN8NagzSaHkZRBo2Ph313SOOvMOBhGy0WC6zbGv 1lPCCxSKLVHk6IDSt3CmQtKwr6HhygCei5KMPbQqGrZIUiRkD0UkM8NXXtBEG+IDxmZTMyNzhiOGNjNz EfKSQ7JgLyMAMaKodkPUkcGsA6Bz0uIMDAUa2+EAtetMHgcYvkUIHIKwK5HKNsMNgjZLWJRc6J ID Date Data Source [id number] 10/03/2020 08:47:58 AM EST [facility] Name Value Range Interpretation Code Description Data Jdoie rce(s) Supporting Document(s) Progress Note [facility] YQOMJd1mGhZYWpWu49/NVNzrKXOuq8LoIXrjQQb5HRuzITGnY5GjAKE4iV3pDAH0NPhVZoYxHaZkDWUd lbm [file] AgICAgICAgICAgICAgICAgICAgICAgICAgICAgICAg ICAgICAgICAgICAgICAgICAgICAgICAgICAgICAgICAgICAgICANCiAgICAgICAgICAgICAgICAgICAg ICAgICAgICAgICAgICAgICAgICAgICAgICAgICAgICAgICAgICAgICAgICAgICAgICAgICAgICAgICAg ICAgICAgICAgICAgICAgICAgICANCiAgICAgICAgIC AgICAgICAgICAgICAgICAgICAgICAgICAgICAgICAgICAgICAgICAgICAgICAgICAgICAgICAgICAgIC AgICAgICAgICAgICAgICAgICAgICAgICAgICAgICANCiAgICAgICAgICAgICAgICAgICAgICAgICAgIC AgICAgICAgICAgICAgICAgICAgICAgICAgICAgICAg ICAgICAgICAgICAgICAgICAgICAgICAgICAgICAgICAgICAgICAgICANCiAgICAgICAgICAgICAgICAg ICAgICAgICAgICAgICAgICAgICAgICAgICAgICAgICAgICAgICAgICAgICAgICAgICAgICAgICAgICAg ICAgICAgICAgICAgICAgICAgICAgICANCiAgICAgIC AgICAgICAgICAgICAgICAgICAgICAgICAgICAgICAgICAgICAgICAgICAgICAgICAgICAgICAgICAgIC AgICAgICAgICAgICAgICAgICAgICAgICAgICAgICAgICANCiAgICAgICAgICAgICAgICAgICAgICAgIC AgICAgICAgICAgICAgICAgICAgICAgICAgICAgICAg ICAgICAgICAgICAgICAgICAgICAgICAgICAgICAgICAgICAgICAgICAgICANCiAgICAgICAgICAgICAg ICAgICAgICAgICAgICAgICAgICAgICAgICAgICAgICAgICAgICAgICAgICAgICAgICAgICAgICAgICAg ICAgICAgICAgICAgICAgICAgICAgICAgICANCiAgIC AgICAgICAgICAgICAgICAgICAgICAgICAgICAgICAgICAgICAgICAgICAgICAgICAgICAgICAgICAgIC AgICAgICAgICAgICAgICAgICAgICAgICAgICAgICAgICAgICANCiAgICAgICAgICAgICAgICAgICAgIC AgICAgICAgICAgICAgICAgICAgICAgICAgICAgICAg ICAgICAgICAgICAgICAgICAgICAgICAgICAgICAgICAgICAgICAgICAgICAgICANCjw/wJMtL2asmTCl ycR8H4poOd2BYk0TIM1jq9RpTEUjRRrmdbMnOmnTBsLuRSIrTodXIbf9HNxvCR7AeQBtV5MkV7WfCEpt SS2YZTVnGZQpuPDuXNVaTMLxUkX5ZUQcOQwdVJ5UcW BgOEcxVYEuDEPwBoDoYJEaHQWlTXTrXQDrFHWBZSCaWWEqSdTyNRyoLE8Sj6SxgAA2NHt+Eu2UOW5jk0 MmZZrlGOQgTL2etf1RKNaVSrWsK0UeupT2OPDwMJWpSm6UWBUzAHPkwZRnIPBkRLSJRtOjQ0RztD73LJ ENCj4+VMmdznBrNkbCGbTpAHAvh1AkZMr8GW9BKFWy KLr7mBTyNVDfF1Sft6NgJk92BGEwTxhiLzcugldrm29iQQv4RHWCGGPinIVtNT9vMA6iHTZnQPBsZcEi UYMCJF6PJEVcYPOvlPViNBYbVGNCLQ3NLNypKEQ7TIPstsTdyBFnYQywII9NPCFnctReOkWxNSYEEIj+ Lz5IQB8pt0GrLQclUwGsSL8ebe7OVDvNQkItV9U2iO HuD1O3RDdlBx5XEGBcUMZqQcjcWZYFJDvhJN4DNP3iqdA9BV2LdUHtVPMoIUAlhJZvLNh1Y64tgPAqFL fvKB1SDZF+Manuel+We6OPPNdFDEhAXOjPmDmGJJPVnYwY4CkP0UAa0OdH0GvGO89dYyoodKcGQezQA1YYS 1pYAHvEJPYYG0HcIMgiW3lgfXgQORcFCCLVvUjY41j sAFnQXQgXKR0LXRoEd4VHKHoP6CpupIuuNyrfbCkJQWkBMCYGZ0JIDucekCxlXPytZuzLL02sVbjOB4I Tx3QNkBoVI6pdb5KgTTzGe3XDBGpQm1FYNGnJFZrGCVbYCF3XDRkOxMpXCwxETLxYFGeZZL8GSFkKXRh CW2MYmZlHVCrEqMkUXFbCZPaIHDjsp6PPRIlFQVoMT RmTnXqPOCvSCWeQSedWAHvNZCuNFQ6BLKpJZLwVH3QCrUqUZYbUAJ8MlTnCGEmHPHayx8FVAHjYZFeQL epNZIlWENdUMRoKVlgKQSzJNF8YVItWSKuNGVkLY5AVfApUKIwWXopHUQvKWRyYEGdtx5CBGUgHRLtXE Y6ZcGqMXQpPQMcLKwfLRDyBGAaNZsgEMXsXQCjFI1S CsMwZKLfKPVsQyFfOJExFAXbof8YHHVlKFArXGQaFBYlPZTpRZHfLJeiSSIvLDL1MhLcMVXxCFZiVM2Z YqBuAEJzHFS4EEtvJGBsHSOusj1MZKZiZGDaBsi6MEDvOMKhRARxAQrbOGEjAYF4FGN1CXMhDBCfOD8J SiPoJZLjGXvhADxlLMEoHTUpgz1WDPChJOMqBFQgYR SoIBXxJMYtIGqlUDJhXUD1MFCzTGItMYNfTL8MVkYcMXYkRGu8IUvbQMCzPGUnqz9XMWAkYRRcJNGjXY LdYIAmHZQjACrdIWDgWLSqWzPmRCQlQUSnYJ4LWcOjVCXtPsD9WhPlXQXyMMGnyo9PKNMtGVYcYDubSb LgAEYrSXGzWEnqLCSbXZOtWJA9QBZjDNRkYK3WOhVr NDCnEkR4XEJqOACaSZSmsm9DLDWaQYGeMvO9UqKkLBOiKIQpIUvzGUGyZMVePzqzVTGqNONiHK1TJnQf YDSdXyM6RVigGKWqJFWsvv6OZMZxZZThQKT2NQCfBFBbZVZpBCeaINMfPED8TdQwMRXvVMCbWR2RZbAa YFSdDaYeAjFpJEHmZPLshn6XwSEkxNosla8RIXwWCz 2QeSiwCZHtEKyzOd5lwHImXpWpWIFEMg6ZgzYtTELbDGVMIExoBSRuSPh2NbQsNRFcCiVxKbXsSOVqJR T7X4ZpZcBxTkDmFJydGzT0YhMlEcXbDwVeYZHbTIFkMsBwADA6KHM8HMCdKgRjJYY+IX6dARj+Pg0Kc3 UvecT5pkFlNFlqCSGsXA5TUPEUH8PFHb== ID Date Data Source [id number] 10/01/2020 08:55:00 AM EST [facility] ([facility] Name Value Range Interpretation Code Description Data Jodie rce(s) Supporting Document(s) Albumin [Mass/volume] in Serum or Plasma 4.1 [facility] ([facility]) Alanine aminotransferase [Enzymatic activity/volume] in Serum or Pl asma 31 [facility] ([facility]) Calcium [Mass/volume] in Serum or Plasma 9.3 [facility] ([facility]) Carbon dioxide, total [Moles/volume] in Serum or Plasma 30 [facility] ([facility]) Chloride [Moles/volume] in Serum or Plasma 103 [facility] ([facility]) Alkaline phosphatase [Enzymatic activity/volume] in Serum or Plasma 7 9 [facility] ([facility]) Potassium [Moles/volume] in Serum or Plasma 3.7 [facility] ([facility]) Protein [Mass/volume] in Serum or Plasma 7.8 [facility] ([facility]) Sodium 138 [facility] ([facility] Aspartate aminotransferase [Enzymatic activity/volume] in Serum or Plasma 15 [facility] ([facility]) Urea nitrogen [Mass/volume] in Serum or Plasma 9 [facility] ([facility]) Glucose 105 83-110 [facility] ([facility] Creatinine For GFR 0.69 [facility] ([facility]) ID Date Data Source [facility] Chest, 2 view (PA\\Lat) 10/01/2020 12:00:00 AM EST eCW1 ( Formerly [facility], [facility]1983) Name Value Range Interpretation Code Description Data Jodie rce(s) Supporting Document(s) [facility] Chest, 2 view (PA\\Lat) eCW 1 (Formerly [facility], [facility]–1983) ID Date Data Source Ser Prot Electro RFX ITS 10/01/2020 12:00:00 AM EST eCW1 ([facility]) Name Value Range Interpretation Code Description Data Jodie rce(s) Supporting Document(s) 59.5 55.8-66.1 ALBUMIN % eCW1 ([facility]) 9.4 7.1-11.8 SKNAY-8-GBVQIRDFH % eCW1 ([facility]) 4.7 2.9-4.9 VCNSB-6-OSMWCQZW % eCW1 ([facility]) 4.7 3.2-6.5 UPLF-1-RECBAWMJB % eCW1 ([facility]) 6.7 4.7-7.2 CAVS-2-DDITUXEUH % eCW1 ([facility]) 15.0 11.1-18.8 GAMMA GLOBULIN % eCW1 ([facility]) 0.53 0.28-0.60 VRGJ-5-LKJWLHRLD eCW1 ([facility]) 4.70 3.29-5.55 ALBUMIN eCW1 ([facility]) 0.74 0.42-0.99 AMGVW-8-VFBXYUVLJ eCW1 ([facility]) 0.37 0.17-0.41 KBJKV-0-ERQBAGSTV eCW1 ([facility]) 1.19 0.65-1.58 GAMMA GLOBULINS eCW1 ([facility]) SEE COMMENT SPEP INTERPRETATION FOR RFX eCW1 ([facility], [facility]) 7.9 6.4-8.2 TOTAL PROTEIN eCW1 ([facility], [facility]) 0.37 0.19-0.55 WZOL-3-BDETPJTHJ eCW1 ([facility]) ID Date Data Source RHEUMATOID FACTOR QUANT 10/01/2020 12:00:00 AM EST eCW1 ([facility]) Name Value Range Interpretation Code Description Data Jodie rce(s) Supporting Document(s) < 10.0 <15.0 RHEUMATOID FACTOR QUANT eCW1 ( [facility], [facility]) ID Date Data Source IMMUNOGLOBULIN G,A,M 10/01/2020 12:00:00 AM EST eCW1 ([facility]) Name Value Range Interpretation Code Description Data Jodie rce(s) Supporting Document(s) 104.0 40-230 IMMUNOGLOBULIN M eCW1 ([facility]) 140.0 70-400 IMMUNOGLOBULIN A eCW1 ([facility]) [phone] IMMUNOGLOBULIN G eCW1 ([facility]) ID Date Data Source CREATININE,RANDOM URINE 10/01/2020 12:00:00 AM EST eCW1 ([facility]) Name Value Range Interpretation Code Description Data Jodie rce(s) Supporting Document(s) 16.7 CREATININE,RANDOM URINE eCW1 ( [facility], [facility]) ID Date Data Source UA URINALYSIS 10/01/2020 12:00:00 AM EST eCW1 ([facility]) Name Value Range Interpretation Code Description Data Jodie rce(s) Supporting Document(s) UA URINALYSIS eCW1 ([facility]ly [facility], [facility]–1983) ID Date Data Source TOTAL PROTEIN,RANDOM URINE 10/01/2020 12:00:00 AM EST eCW1 ( [facility]) Name Value Range Interpretation Code Description Data Jodie rce(s) Supporting Document(s) < 5.0 0.0-12.0 TOTAL PROTEIN,RANDOM URIN E eCW1 ([facility], [facility]1983) ID Date Data Source HEPATITIS C ANTIBODY INDEX 10/01/2020 12:00:00 AM EST eCW1 ( [facility]) Name Value Range Interpretation Code Description Data Jodie rce(s) Supporting Document(s) 0.1 <0.8 HEPATITIS C VIRUS RUSTY INDEX eC W1 ([facility]ly [facility], [facility]–1983) ID Date Data Source HEPATITIS B SURFACE ANTIGEN 10/01/2020 12:00:00 AM EST eCW1 ([facility], [facility]) Name Value Range Interpretation Code Description Data Jodie rce(s) Supporting Document(s) NEGATIVE NEGATIVE HEPATITIS B SURFACE ANTIG EN eCW1 ([facility], [facility]) ID Date Data Source C REACTIVE PROTEIN QUANTITATIV (At [facility]) 10/01/2020 12:00 :00 AM EST eCW1 ([facility], [facility]) Name Value Range Interpretation Code Description Data Jodie rce(s) Supporting Document(s) 0.82 0.00-0.30 C REACTIVE PROTEIN QUANTI TATIV eCW1 ([facility]ly [facility], [facility]) ID Date Data Source Comprehensive Metabolic Profile (CMP) 10/01/2020 12:00:00 AM EST eCW1 ([facility], [facility]) Name Value Range Interpretation Code Description Data Jodie rce(s) Supporting Document(s) 105 70-100 GLUCOSE, FASTING eCW1 ([facility]) 138 136-145 SODIUM LEVEL eCW1 ([facility]) > 60.0 >60 GLOMERULAR FILTRATION RATE eCW 1 ([facility], [facility]) 9 7-18 BLOOD UREA NITROGEN eCW1 ([facility]) 0.69 0.55-1.30 CREATININE FOR GFR eCW1 ([facility]) 3.7 3.5-5.1 POTASSIUM SERUM eCW1 ([facility]) 30 21-32 CARBON DIOXIDE LEVEL eCW1 ([facility]) 103 98-107 CHLORIDE LEVEL eCW1 ([facility], [facility]) 9.3 8.5-10.1 CALCIUM LEVEL eCW1 ([facility]) 0.3 0.2-1.0 BILIRUBIN,TOTAL eCW1 ([facility]) 15 7-37 AST/SGOT eCW1 ([facility]) 79 45-117 ALKALINE PHOSPHATASE eCW1 ([facility]) 31 12-78 ALT/SGPT eCW1 ([facility]) 4.1 3.2-5.2 ALBUMIN eCW1 ([facility]) 7.8 6.4-8.2 TOTAL PROTEIN eCW1 ([facility]) 1.1 1.2-2.2 ALBUMIN/GLOBULIN RATIO eCW1 ([facility]) ID Date Data Source [id number] 09/26/2020 08:53:00 AM EST [facility] ([facility]) Name Value Range Interpretation Code Description Data Jodie rce(s) Supporting Document(s) White Blood Count 7.7 5.0-10.0 [facility] ([facility]) Red Blood Count 4.11 4.00-5.40 [facility] ([facility]) Platelets 304 172-450 [facility] ([facility] Hemoglobin 12.4 [facility] ([facility]) Hematocrit 38.3 [facility] ([facility]) ID Date Data Source ESTRADIOL 08/22/2020 10:17:50 AM EDT eCW1 ([facility]) Name Value Range Interpretation Code Description Data Jodie rce(s) Supporting Document(s) 93.5 eCW1 ([facility]) ID Date Data Source FREE T4 & TSH PANEL 08/22/2020 10:17:41 AM EDT eCW1 ([facility]) Name Value Range Interpretation Code Description Data Jodie rce(s) Supporting Document(s) 0.921 eCW1 ([facility]) 0.90 eCW1 ([facility]) ID Date Data Source FSH & LH EVAL 08/22/2020 10:17:35 AM EDT eCW1 ([facility]) Name Value Range Interpretation Code Description Data Jodie rce(s) Supporting Document(s) 3.5 eCW1 ([facility]) 6.7 eCW1 ([facility]) ID Date Data Source TESTOSTERONE FREE & TOTAL 08/22/2020 10:17:27 AM EDT eCW1 ([facility]) Name Value Range Interpretation Code Description Data Jodie rce(s) Supporting Document(s) 3.1 eCW1 ([facility]) 27.0 eCW1 ([facility]) ID Date Data Source CBC - Complete Blood Count 08/22/2020 10:17:20 AM EDT eCW1 ( [facility]) Name Value Range Interpretation Code Description Data Jodie rce(s) Supporting Document(s) 42.6 eCW1 ([facility]) 4.50 eCW1 ([facility]) 7.9 eCW1 ([facility]) 13.8 eCW1 ([facility]) 11.9 eCW1 ([facility]) 30.7 eCW1 ([facility]) 32.4 eCW1 ([facility]) 94.7 eCW1 ([facility]) 321 eCW1 ([facility]) ID Date Data Source [id number] 08/22/2020 10:16:50 AM EDT eCW1 ([facility]) Name Value Range Interpretation Code Description Data Jodie rce(s) Supporting Document(s) Hemoglobin A1c/Hemoglobin.total in Blood 5.2 eCW1 ([facility], [facility]) ID Date Data Source [id number] 07/23/2020 12:00:00 PM EDT [facility] Name Value Range Interpretation Code Description Data Jodie rce(s) Supporting Document(s) SARS coronavirus 2 RNA [facility] This lab was ordered by [facility] and reported by [facility]. ID Date Data Source [id number] 06/18/2020 12:25:00 PM EDT [facility] Patient Name: ERYN NAVARRO : 1990 Sex: F Pt Unit #: [id number] Location:[facility] Provider: Visit Date/Time: 06/18/20 Primary Insurance: [facility] Secondary Insurance: Self Pay Intake Vital Signs 06/18/20 12:26 Current Height 5 ft 4 in Current Weight 215 lb Weight Measurement Method Standing Scale BMI 36.8 BP 128/84 Blood Pressure Location Lt radial Position Sitting Respiration 16 Pulse 73 Pulse Strength Normal Pulse Source Pulse Oximeter Temp 98.1 F Temp Source Oral Pulse Oximetry (%) 100 Oxygen Delivery Method room air Intake Visit Reasons: Test result Nurse Note: PT HERE FOR FOLLOW UP ON BARIUM ENEMA WT LOSS AND PELVIC PAIN. SHE STATES THAT SHE HAS ALOG TODAY OF HER PAIN THAT SHE HAS HAD AND TRACKING OF TIMES OF MONTH. SHE FEELS IT IS CYCLIC SEEMS TO BE BEGINNING OF MONTHS. PAIN IS REPORTED "STABBING TWISTING PAIN LT>RT RADIATING INTO HER BACK. LMP WAS 01/27/20. SHE HAS THE MIRENA IUD HX PCOS AND ENDOMETRIOSIS. SHE WOULD LIKE TO TALK ABOUT A DX LAP TODAY SHE STATES YEARS AGO SHE HAD "TISSUE REMOVED". DO NOT HAVE DR PHILLIPS'S OLD RECORDS. SHE IS DOWN TOTAL 1O# SINCE MARCH AND DOING IT ON HER OWN. SHE HAS TOTALLY CHANGED HER DIET. SHE ISFEELING BETTER ABOUT HERSELF. SHE HAS USED PHENTERMINE IN PAST YEARS AGO SHE TELLS ME. Sex Therapist Required: No Is patient in pain?: Yes (LT>RT PELVIC INTO BACK) Pain scale (1-10): 4 Allergies Sulfa (Sulfonamide Antibiotics) Allergy (Sev ere, Verified 06/18/20 12:59) COULD NOT BREATH SEASONAL ALLERGIES Allergy (Unknown, Verified 06/18/20 12:59) Is last menstrual period known: Yes Last menstrual period: 01/27/20 Post menopausal: No Patient : No Vision Wearing glasses?: No Fall Risk Gait/Transferring:: Normal Coronavirus Screening Screening Have you traveled outside of [facility] or [facility] in the last 14 days.: No Has patient experienced coronavirus symptoms: No PFSH Medical History ISRAEL positive Carpal tunnel syndrome on right (04/04/17) endometriosis Endometriosis determined by laparoscopy History of chronic cystitis Migraine with aura Pelvic pain PID Polycystic ovaries Seasonal allergic rhinitis SLE (systemic lupus erythematosus) Vertigo Vitamin D deficiency Surgical History Cholecystectomy (02/13/18) History of - surgery History of - surgery planters wart removal Status post tonsillectomy Family History Mother Systemic lupus erythematosus Depression Transient ischemic attack Father Diabetes mellitus, type 2 Brother No problems noted. 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 current occupational exposures/hazards: No Hx Recent Travel (where): No sexually active: Yes well-balanced diet: daily high-fat food intake: 0-1 times daily daily servings fruits/ve-4 daily servings of milk/calcium: 2-4 eating out: rarely or never reads food labels: usually or always during the past year weight has: increased > 10 lbs alcohol intake: current alcohol intake frequency: holidays/special occasions only substance use type: does not use seatbelt use: always helmet use: Yes drive intox or ride w/ intox 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 driver: No working smoke detector in home: Yes fire extinguisher in home: Yes carbon monox detector in home: Yes firearms in home: Yes firearms unloaded and locked: Yes do you feel safe at home: Yes victim of physical abuse: No victim of emotional abuse: No victim of sexual abuse: No would you like helpful sources: No Female Reproductive History Menstrual Age of Menarche: 10 Duration of menses: other Date of last menstrual period: 01/27/20 control method: progestin IUCD Total pregnancies: 3 Full term: 2 Ab induced: 0 Ab spontaneous: 0 Ectopics: 1 Review of Systems Const All systems reviewed are unremarkable except as noted in HPI and below Reports as per HPI, Reports system reviewed and no additional complaints, except as documented, Denies headache(s) and Reports weight loss Details: has been loosing on her own,has used Phentermine in the past Eyes Reports as per HPI, Reports system reviewed and no additional complaints, except as documented, Denies change in vision and Denies other visual disturbances ENT Reports system reviewed and no additional complaints, except as documented, Reports as per HPI, Denies change in voice, Denies vertigo and Denies headache(s) Card Reports as per HPI, Reports system reviewed and no additional complaints, except as documented, Denies chest pain, Denies irregular heart rhythm, Denies palpitations and Denies dyspnea Resp Reports as per HPI, Reports system reviewed and no additional complaints, except as documented and Denies dyspnea GI Reports as per HPI, Reports system reviewed and no additional complaints, except as documented, Reports abdominal pain (bilateral lower quadrants,has been tracking and seems to flare monthly), Denies belching, Denies change in bowel habits, Denies change in stool character, Denies dyspepsia, Denies nausea and Denies vomiting Genitourinary: Reports system reviewed and no additional complaints, except as documented, as per HPI, amenorrhea (using MIrena) and pelvic pain (seems to occur monthly) Details: had removal of left ectopic 9 years ago and was told she had endometriosis.{old records pending}.May have scar tissue/ adhesions Musc Reports system reviewed and no additional complaints, except as documented and Reports as per HPI Skin/Breast Reports system reviewed and no additional complaints, except as documented and Reports as per HPI Neuro Reports system reviewed and no additional complaints, except as documented, Reports as per HPI, Denies vertigo, Denies headache(s) and Denies memory loss Psych Reports system reviewed and no additional complaints, except as documented, Reports as per HPI, Denies change in appetite, Denies memory loss and Denies mood swings Endo Reports system reviewed and no additional complaints, except as documented, Reports as per HPI and Denies palpitations Leander/Lymph Reports system reviewed and no additional complaints, except as documented and Reports as per HPI Aller/Immun Reports system reviewed and no additional complaints, except as documented and Reports as per HPI Exam Const General: cooperative, healthy appearing, comfortable, no acute distress, well developed and well groomed Nutritional Appearance: average body habitus and obese (BMI = 36.8) Orientation: alert, aw sourav and oriented x3 HENOH Head: normal to inspection and normocephalic Ears: hearing grossly normal bilaterally and external ears normal Other: Wearing mask due to COVID -19 Eyes General: appearance normal, both eyes and all related structures Alignment and Position: alignment normal Periorbital: periorbital findings normal Eyelids: eyelids normal Conjunctivae: conjunctivae normal Pupils: PERRL EOM: EOM intact bilaterally Neck Neck: normal visual inspection, full ROM, no lymphadenopathy, trachea midline and supple Neck mass: No Thyroid: thyroid normal Lymphatic: no lymphadenopathy noted Chest Chest: normal inspection of the chest Breast/Axilla Inspection: normal inspection of the breasts Resp Effort Inspection: normal respiratory effort and able to speak in complete sentences Auscultation: clear to auscultation bilaterally Percussion: percussion normal Cardio Rate: regular rate Rhythm: regular rhythm Heart Sounds: S1 normal and S2 normal Pulses: femoral pulses present bilaterally 2+ GI Inspection: Yes normal to inspection and Yes obesity Palpation: soft Percussion: normal to percussion Auscultation: normal bowel sounds Rectal Exam - Female: Yes visual inspection normal Other: tender to deep palpation bilaterally General: bimanual renal exam normal bilaterally and deferred (pelvic exam deferred to EUA) Musc Cervical Spine: normal cervical lordosis and cervical ROM normal Thoracic/Lumbar Spine: thoracic and lumbar spine normal to inspection Skin Lesions: no lesions Rashes: no rashes Trauma: no lacerations or abrasions Wounds: no wounds Hair: normal Nails: normal Neuro General: patient alert, patient awake, patient oriented x3, gait normal and moves all extremities Cranial Nerves: PERRL, hearing normal, able to rotate head bilaterally and able to elevate shouldersbilaterally Cognition: normal cognition Speech: speech normal Gait: normal gait Motor: no movement abnormalities noted Extrem General: normal to inspection, full ROM and normal gait Psych Appearance: grossly normal and well kempt Mental Status: mental status grossly normal Speech and Movement: speech and movement normal Mood: congruent mood Affect: normal affect Attitude: cooperative Thought Process: normal Thought Content: normal Insight: insight good Judgment: judgment good Assessment Plan Assessment Plan (1) Encounter to discuss test resu lts: Code(s): Z71.2 - Person consulting for explanation of examination or test findings (2) Endometriosis determined by laparoscopy: Status: Acute Comment: requesting operative report and pathology from surgery with . Code(s): N80.9 - Endometriosis, unspecified SNOMED Code(s): 797658261 Category: Medical (3) History of chronic cystitis: Status: Acute Code(s): Z87.448 - Personal history of other diseases of urinary system SNOMED Code(s): 615515431 Category: Medical (4) Pelvic pain: Status: Acute Code(s): R10.2 - Pelvic and perineal pain SNOMED Code(s): 33142217 Category: Medical (5) Educated about management of weight: Status: Acute Comment: has been able to lose on her own;used Phentermine in the past Code(s): Z78.9 - Other specified health status SNOMED Code(s): 234916923 Category: Medical Orders Other Medications: New: phent ermine take 1 tab by mouth daily as directed 37.5 mg PO DAILY 30 tabs 1RF MDD 1 Follow Up: 1 Week (postop) Electronically Signed By: <Electronically signed by Nate Granger II, MD> Date/Time Signed: 06/18/20 1321 Name Value Range Interpretation Code Description Data Jodie rce(s) Supporting Document(s) ID Date Data Source [id number] 05/30/2020 02:35:00 PM EDT [facility] [address] [place] [id number] [phone] NAME SEX PT STATUS ACCOUNT NUMBER ERYN NAVARRO LM F REG REF [id number] ORDERING PHYSICIAN LOCATION MEDICAL RECORD NO. Nate Granger II, MD RAD [id number] ATTENDING PHYSICIAN DATE OF DATE OF EXAM/TIME Zabrina Liu RPA 1990 05/30/20 / 1240 TYPE / EXAM Xray Barium enema-SINGLE CONTR REASON FOR EXAM Lower Abdominal Pain COMPARISON: None FINDINGS: Punchboard Assembler radiograph of the abdomen displays an unremarkable intestinal gas pattern. Free retrograde passage of barium is seen from the rectum to cecum. The colonic mucosa shows no evidence of ulceration or stricture. However, owing to incomplete insufflation of the colon, the mucosa, itself is not optimally visualized. There is no evidence of obstruction or annular constricting mass lesion. No definite polypoid filling defects are noted. IMPRESSION Somewhat suboptimal study with no significant abnormalities noted. Reported By Alber Ortiz MD on 05/30/20 1435 Signed By Alber Ortiz MD on 05/30/20 1437 Date Time CC: Alber Ortiz MD; Zabrina Liu Techn: MORSA Trans Dt/Tm: Trans by: DT Prt Dt/Tm: [id number]: Total DLP = 0.00 mGy-cm Fluoroscopy Time (in secs): Name Value Range Interpretation Code Description Data Jodie rce(s) Supporting Document(s) ID Date Data Source [id number] 05/28/2020 11:16:00 AM EDT [facility] Patient Name: ERYN NAVARRO LM : 1990 Sex: F Pt Unit #: [id number] Location:[facility] Provider: Visit Date/Time: 05/28/20 Primary Insurance: [facility] Secondary Insurance: Self Pay Intake Vital Signs 05/28/20 11:17 Current Height 5 ft 4 in Current Weight 219 lb 2 oz Weight Measurement Method Standing Scale BMI 37.5 BP 123/86 Blood Pressure Location Lt radial Position Sitting Respiration 16 Pulse 70 Pulse Strength Normal Pulse Source Pulse Oximeter Temp 98.6 F Temp Source Oral Pulse Oximetry (%) 97 Oxygen Delivery Method room air Intake Visit Reasons: Pelvic Pain Follow-up Nurse Note: PT HERE FOR FOLLOW UP ON UA AND PELVIC SONO. SONO SHOWED SMALL RT OVARIAN CYST. SHE STATES THAT SHE HAS CONSTANT STOMACH PAIN WONDERS IT MAYBE THAT . SHE HAS CHNAGED HER DIET HAS LOST WT 6#. SHE STATES THAT CHANGING HER DIET HAS NOT HELPED. SHE HAS BEEN TAKING THE METFORMIN AND IS TOLERATING IT TAKING 1500 MG PO QD. SHE DID NOT TOLERATE THE CIMETADINE MADE HER SICK TOOK IT FOR A MONTH BUT STOPPED IT A MONTH AGO WAS MAKING HER SICK AND ALSO HAD BREAST PAIN. PT HAS THE MIRENA ANDSTTAES SHE HAS NOT HAD ANY BLEEDING. SHE HAS WENT TO SEE NEPHROLOGY AND THEY ADVISED NO FURTHER FOLLOW UP ONLY PRN. SHE HAS NOT SEEN ENDOCRINE YET HAD A APPT IN AUGUST THAT WAS CANCELED BY THEM, THEY HAVE NOT CALLED HER BACK FOR F/U ADVISED PT TO CALL THEM AND SEE WHY SHE HAS NOT BEEN CALLED. Sex Therapist Required: No Is patient in pain?: No Allergies Sulfa (Sulfonamide Antibiotics) Allergy (Severe, Verified 05/28/20 13:19) COULD NOT BREATH SEASONAL ALLERGIES Allergy (Unknown, Verified 05/28/20 13:19) Is last menstrual period known: Yes Post menopausal: No Patient : No Fall Risk Gait/Transferring:: Normal HIV Testing Offer - ages 13-64 Requirement for HIV testing offer been met?: Declines today. Pretest education received and acknowledged Coronavirus Screening Screening Have you traveled outside of [facility] or [facility] in the last 14 days.: No Has patient experienced coronavirus symptoms: No PFSH Medical History ISRAEL positive Carpal tunnel syndrome on right (04/04/17) endometriosis Migraine with aura Pelvic pain PID Polycystic ovaries Seasonal allergic rhinitis SLE (systemic lupus erythematosus) Vertigo Vitamin D deficiency Surgical History Cholecystectomy (02/13/18) History of - surgery History of - surgery planters wart removal Status post tonsillectomy Family History Mother Systemic lupus erythematosus Depression Transient ischemic attack Father Diabetes mellitus, type 2 Brother No problems noted. 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 current occupational exposures/hazards: No Hx Recent Travel (where): No well- balanced diet: daily high-fat food intake: 0-1 times daily daily servings fruits/ve-4 daily servings of milk/calcium: 2-4 eating out: rarely or never reads food labels: usually or always during the past year weight has: increased > 10 lbs alcohol intake: current alcohol intake frequency: holidays/special occasions only substance use type: does not use seatbelt use: always helmet use: Yes drive intox or ride w/ intox 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 driver: No working smoke detector in home: Yes fire extinguisher in home: Yes carbon monox detector in home: Yes firearms in home: Yes firearms unloaded and locked: Yes do you feel safe at home: Yes victim of physical abuse: No victim of emotional abuse: No victim of sexual abuse: No would you like helpful sources: No Female Reproductive History Menstrual Age of Menarche: 10 Duration of menses: other control method: progestin IUCD Ab induced: 0 Ab spontaneous: 0 Ectopics: 1 HPI Pelvic Pain Associated symptoms: Reports dyspareunia (on ocassion) Review of Systems Const All systems reviewed are unremarkable except as noted in HPI and below Reports as per HPI, Reports system reviewed and no additional complaints, except as documented and Reports weight loss (down 6 lbs with change in diet and exercise.) Eyes Denies loss of vision ENT Denies dysphagia, Denies vertigo and Denies odynophagia GI Reports as per HPI, Reports system reviewed and no additional complaints, except as documented, Reports abdominal pain (constantlo wer abdominal pain.Patient states + CIC ,endometriosis), Denies hematochezia, Reports change in bowel habits, Reports change in stool character (loose), Denies dysphagia, Reports dyspepsia, Reports loose stools, Denies odynophagia and Denies hematemesis Genitourinary: Reports system reviewed and no additional complaints, except as documented, as per HPI, amenorrhea (Mirena in good position per US), dyspareunia (on ocassion) and pelvic pain Details: family history of endometriosis Musc Reports system reviewed and no additional complaints, except as documented, Reports as per HPI, Denies deformity and Denies loss of height Skin/Breast Reports system reviewed and no additional complaints, except as documented, Reports as per HPI, Denies breast swelling, Denies breast pain, Denies breast mass and Denies change in breast shape Neuro Reports system reviewed and no additional complaints, except as documented, Reports as per HPI, Denies behavioral changes, Denies vertigo, Denies lack of c oordination, Denies loss of vision, Denies memory loss and Denies other visual disturbances Psych Reports system reviewed and no additional complaints, except as documented, Reports as per HPI, Denies behavioral changes, Denies depression and Denies memory loss Endo Reports system reviewed and no additional complaints, except as documented and Reports as per HPI Leander/Lymph Reports system reviewed and no additional complaints, except as documented, Reports as per HPI, Denies easy bleeding, Denies easy bruising and Denies lymphadenopathy Aller/Immun Reports system reviewed and no additional comp laints, except as documented and Reports as per HPI Exam Const General: cooperative, comfortable, no acute distress, well developed and well groomed Nutritional Appearance: obese (BMI=37.5) Orientation: alert, awake and oriented x3 GI Inspection: Yes normal to inspection Palpation: soft Percussion: normal to percussion Auscultation: normal bowel sounds Other: deferred to next visit. Musc Cervical Spine: normal cervical lordosis and cervical ROM normal Thoracic/Lumbar Spine: thoracic and lumbar spine normal to inspection Skin Lesions: no lesions Rashes: no rashes Trauma: no lacerations or abrasions Wounds: no wounds Hair: normal Nails: normal Neuro General: patient alert, patient awake, patient oriented x3, oriented, gait normal and moves all extremities Cranial Nerves: PERRL, hearing normal, able to rotate head bilaterally and able to elevate shouldersbilaterally Cognition: normal cognition Speech: speech normal Gait: normal gait Motor: no movement abnormalities noted Extrem General: normal to inspection and full ROM Psych Appearance: grossly normal and well kempt Mental Status: mental status grossly normal Speech and Movement: speech and movement normal Mood: congruent mood Affect: normal affect Thought Process: normal Thought Content: normal Insight: insight good Judgment: judgment good Quality Reporting Sexual Activity Screening ([facility]) Sexually active?: Yes Assessment Plan Assessment Plan (1) Pain in female pelvis: Code(s): R10.2 - Pelvic and perineal pain (2) History of chronic cystitis: Status: Acute Code(s): Z87.448 - Personal history of other diseases of urinary system SNOMED Code(s): 043594700 Category: Medical (3) Endometriosis determined by laparoscopy: Status: Acute Comment: requesting operative report and pathology from surgery with . Code(s): N80.9 - Endometriosis, unspecified SNOMED Code(s): 930537954 Category: Medical Plan - Nate Granger II, MD: SANDIE Additional Comments Additional Comments: given the constant nature of her lower abdominal discomfort and change in bowels will request BaEnema. Orders Follow Up: 3 Weeks Electronically Signed By: <Electronically signed by Nate Granger II, MD> Date/Time Signed: 05/28/20 1345 Name Value Range Interpretation Code Description Data Jodie rce(s) Supporting Document(s) ID Date Data Source [id number] 04/23/2020 01:38:00 PM EDT [facility] [address] [place] [address] [phone] NAME SEX PT STATUS ACCOUNT NUMBER ERYN NAVARRO LM F REG REF [id number] ORDERING PHYSICIAN LOCATION MEDICAL RECORD NO. Nate Granger II, MD [id number] ATTENDING PHYSICIAN DATE OF DATE OF EXAM/TIME Zabrina Liu RPA 1990 04/23/20 / 0 TYPE / EXAM US Pelvic complete REASON FOR EXAM F/U 01/30 RT OVARIAN CYST COMPARISON: None FINDINGS: The uterus is normal in size and echogenicity. There is no evidence of lobulation or contour abnormality. The adnexa reveal no evidence of mass, cysts, or other abnormality. No fluid is seen inthe cul-de-sac. The uterus measures 11.6 x 2.4 [...] ovaries. The bladder is unremarkable. IMPRESSION: 1. Smal l right ovarian cyst. 2. Ovaries otherwise unremarkable in appearance. Normal spectral waveforms. 3. No free pelvic fluid. Reported By Alber Ortiz MD on 04/23/20 1338 Signed By Alber Ortiz MD on 04/23/20 1348 Date Time CC: Alber Ortiz MD; Zabrina Liu Techn: FREST Trans Dt/Tm: Trans by: DT Prt Dt/Tm: 19: Total DLP = 0.00 mGy-cm : Total Radiation Dose = 0.0000 mSv Lifetime Dose: 16.9050 mSv Name Value Range Interpretation Code Description Data Jodie rce(s) Supporting Document(s) ID Date Data Source [id number] 04/02/2020 12:03:00 PM EDT [facility] Method of Collection:: Clean Catch Name Value Range Interpretation Code Description Data Jodie rce(s) Supporting Document(s) Color of Urine [facility] Appearance of Urine CLEAR [facility] pH of Urine by Test strip 7.5 5-8 [facility] Specific gravity of Urine by Refractometry 1.007 1.005-1.030 [facility] Leukocyte esterase [Presence] in Urine by Test strip NEGAT JADYN [facility] Nitrite [Presence] in Urine by Test strip NEGATIVE [facility] Protein [Presence] in Urine by Test strip NEGATIVE [facility] Glucose [Mass/volume] in Urine by Automated test strip NEGATIVE NEG ATIVE [facility] Ketones [Presence] in Urine by Test strip NEGATIVE [facility] Urobilinogen [Presence] in Urine 0.2-1 EU/dl [facility] Bilirubin.total [Presence] in Urine by Automated test strip NEGATIVE [facility] Erythrocytes [#/volume] in Urine by Test strip NEGATIVE NEGATIVE [facility] URINE MICROSCOPIC? (CIF) NO [facility] ID Date Data Source [id number] 04/02/2020 10:21:00 AM EDT [facility] Patient Name: Eryn Navarro LM : 1990 Sex: F Pt Unit #: [id number] Location:[facility] Provider: Visit Date/Time: 04/02/20 Primary Insurance: [facility] Secondary Insurance: Self Pay Intake Vital Signs 04/02/20 10:22 Current Height 5 ft 4 in Current Weight 225 lb 6 oz Weight Measurement Method Standing Scale BMI 38.7 BP 141/84 Blood Pressure Location Lt radial Position Sitting Respiration 16 Pulse 81 Pulse Strength Normal Pulse Source Pulse Oximeter Temp 98.7 F Temp Source Oral Pulse Oximetry (%) 98 Oxygen Delivery Method room air Intake Visit Reasons: Medication check Nurse Note: PT HERE TODAY FROM A APPT BACK IN AUGUST. SHE WAS TO COME BACK TO SEE DR GRANGER BUT HAD GOT/ R/S . SHE SEEN DR BOSCH LAST 03/07/20 AND HAD A NEW MIRENA IUD PLACED IN. SHE HAS ENDOMETRIOSIS PCOS AND HASHIMOTOS. SHE ALSO REPORTS SEVERAL TIMES HAVING PID. SHE ALSO STATES LUPUS.SHE DID SEE [facility]. SHE WAS DOING PLAQUENIL BUT STOPPED IT MONTHS NOW. SHE WONDERS IF SHE SHOULD GO BACK TO IT. SHE WAS TO FOLLOW UP WITH THEM IN FEBRUARY GOT R/S D/T COVID. SHE ALSO STATESTHAT WANTED TO HAVE HER BACK IN AUGUST BUT THAT ALSO GOT CANCELED D/T COVID SHE HAS NO CURRENT APPTPER [facility]. SHE WAS RECENTLY IN ER FOR STOMACH PAIN. SHE HAD A CT DONE SHOWING LT KIDNEY CYST. SHE STATES ALSO HERNIATED T10-T11. SHE ALSO HAD SPLEEN CALCIFICATIONS. SHE STATES THAT SHE WAS UNAWARE OF THESE THINGS SHE SEEN THIS ON HER PORTAL. NOBODY HAD CALLED HER. SHE DID HAVE A RT OVARIAN CYST WITH A SONO DONE 01/22/[address] BOSCH. SHE HAS ABN HAIR GROWTH ALL OVER. SHE IS NOT ON ANY MEDS FOR THE ABN HAIR GROWTH. SHE CAN NOT LOSE WT NIGHT SWEATS ABD PAIN AN PRESSURE ON BLADDER REGION. SHE HAS NOENERGY. SHE IS NOT ON ANY THROID MEDS DID DO A SHORT RX OF ABOUT [address] GRANGER.SHE DID NOT GET ANY REFILLS WITH PCP THEY WANTED HER TO SEE ENDOCRINE. SHE DID GET A REFERRAL FROM DR GRANGER TO GO BUT HAS GOTTEN NO APPT. LAST PAP WAS 02/01/20 WNL SHE HAS NOT GOT ANY OTHER APPT TO CHECK ON THESE ANOMALIES FROM CT. Sex Therapist Required: No Is patient in pain?: Yes (STOMACH) Pain scale (1-10): 2 Allergies Sulfa (Loepz lfonamide Antibiotics) Allergy (Severe, Verified 04/02/20 13:54) COULD NOT BREATH SEASONAL ALLERGIES Allergy (Unknown, Verified 04/02/20 13:54) Is last menstrual period known: No Post menopausal: No Patient : No Fall Risk Gait/Transferring:: Normal HIV Testing Offer - ages 13-64 Requirement for HIV testing offer been met?: Declines today. Pretest education received and acknowledged [facility] Medical History ISRAEL positive (Inactive) Carpal tunnel syndrome on right (Chronic 04/04/17) endometriosis (Inactive) (Inactive) Migraine with aura (Chronic) Pelvic pain (Acute) PID (Resolved) Polycystic ovaries (Chronic) Seasonal allergic rhinitis (Chronic) SLE (systemic lupus erythematosus) (Chronic) Vertigo (Resolved) Vitamin D deficiency (Chronic) Surgical History Cholecystectomy (Resolved 02/13/18) History of - surgery (Resolved) History of - surgery (Resolved) planters wart removal (Resolved) Status post tonsillectomy (Resolved) Family History Mother Systemic lupus erythematosus Depression Transient ischemic attack Father Diabetes mellitus, type 2 Brother No problems noted. 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 current occupational exposures/hazards: No Hx Recent Travel (where): No well- balanced diet: daily high-fat food intake: 0-1 times daily daily servings fruits/ve-4 daily servings of milk/calcium: 2-4 eating out: rarely or never reads food labels: usually or always during the past year weight has: increased > 10 lbs alcohol intake: current alcohol intake frequency: holidays/special occasions only substance use type: does not use seatbelt use: always helmet use: Yes drive intox or ride w/ intox 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 driver: No working smoke detector in home: Yes fire extinguisher in home: Yes carbon monox detector in home: Yes firearms in home: Yes firearms unloaded and locked: Yes do you feel safe at home: Yes victim of physical abuse: No victim of emotional abuse: No victim of sexual abuse: No would you like helpful sources: No Female Reproductive History Menstrual Age of Menarche: 10 Duration of menses: other control method: progestin IUCD Ab induced: 0 Ab spontaneous: 0 Ectopics: 1 Review of Systems Const All systems reviewed are unremarkable except as noted in HPI and below Reports as per HPI, Reports system reviewed and no additional complaints, except as documented and Reports weight gain Details: Patient here to review labs and US and plan follow up.She had recent exam and placement of Mirena and is doing well with this. Previously we had discussed possible use of Synthroid 25mcg for Rosendo.She has used phentermine in the past and did well with it.She was given dietary educational material related to PCOS and weight loss.Her SLE status remains up in the air as she hasnot seen Rheumatology ;but was on Plaquenil in the past.Will refer by her request to Nephrology for renal cyst.She will need follow up ultrasound as well.In the meantime will restart the synthroid 25mcg daily and start Metformin 1500 mg HS.Will revaluate for phentermine use at next6 visit. GI Reports as per HPI and Reports system reviewed and no additional complaints, except as documented Exam Const General: cooperative, healthy appearing, comfortable, no acute distress and well developed Nutritional Appearance: average body habitus and obese Orientation: alert, awake and oriented x3 Assessment Plan Assessment Plan (1) Encounter for medication adjustment: Code(s): Z51.89 - Encounter for other specified aftercare (2) Rosendo's thyroiditis: Status: Acute Comment: WILL START SYNTHROID 25MCG AND FOLLOW UP ENDOCRINE W/U Code(s): E06.3 - Autoimmune thyroiditis SNOMED Code(s): 73286936 Category: Medical (3) ISRAEL positive: Status: Acute SNOMED Code(s): 117225298 Category: Medical (4) Weight gain, abnormal: Status: Acute Comment: +/- 40 LBS IN 4 MONTHS Code(s): R63.5 - Abnormal weight gain SNOMED Code(s): 331970867 Category: Medical (5) Polycystic ovaries: Status: Chronic Comment: LABS IN THE PAST WERE NOT SUFFICIENT FOR MAKING DIAGNOSIS SNOMED Code(s): 126110145 Category: Medical Orders Other Medications: New: metformin ER 1,500 mg (2 x 750 mg) PO HS 60 tabs 3RF cimetidine administer with meals 800 mg PO BID 60 tabs 3RF levothyroxine (Synthroid) 25 mcg PO QDAY 30 tabs 3RF Other Orders: Orders: UA W/ CULTURE IF ABNORMAL Today R10.2 US Pelvic complete 1 Month N83.201 Follow Up: 6 Weeks Electronically Signed By: <Electronically signed by Nate Granger II, MD> Date/Time Signed: 04/02/20 1611 Name Value Range Interpretation Code Description Data Jodie rce(s) Supporting Document(s) ID Date Data Source [id number] 03/19/2020 06:23:00 PM EDT [facility] [address] [place] [address] [phone] NAME SEX PT STATUS ACCOUNT NUMBER Eryn Navarro LM [facility] [id number] ORDERING PHYSICIAN LOCATION MEDICAL RECORD NO. Emiliano Delarosa MD ER [id number] ATTENDING PHYSICIAN DATE OF DATE OF EXAM/TIME Zabrina Liu LUKASZ Thao 1990 03/19/201700 TYPE / EXAM CT Abd/pel w/ contrast [...] Dose = 16.9050 mSv Lifetime Dose: 16.9050 mSv Name Value Range Interpretation Code Description Data Jodie rce(s) Supporting Document(s) ID Date Data Source [id number] 03/19/2020 06:18:00 PM EDT [facility] Reason for ordering culture: Abnormal fi ndings UAMethod of Collection:: Voided Name Value Range Interpretation Code Description Data Jodie rce(s) Supporting Document(s) Color of Urine [facility] Appearance of Urine CLEAR [facility] pH of Urine by Test strip 7.0 5-8 [facility] Specific gravity of Urine by Refractometry 1.009 1.005-1.030 [facility] Leukocyte esterase [Presence] in Urine by Test strip NEGAT JADYN [facility] Nitrite [Presence] in Urine by Test strip NEGATIVE [facility] Protein [Presence] in Urine by Test strip NEGATIVE [facility] Glucose [Mass/volume] in Urine by Automated test strip NEGATIVE NEG ATIVE [facility] Ketones [Presence] in Urine by Test strip NEGATIVE [facility] Urobilinogen [Presence] in Urine 0.2-1 EU/dl [facility] Bilirubin.total [Presence] in Urine by Automated test strip NEGATIVE [facility] Erythrocytes [#/volume] in Urine by Test strip NEGATIVE NEGATIVE [facility] URINE MICROSCOPIC? (CIF) NO [facility] ID Date Data Source [id number] 03/19/2020 05:39:00 PM EDT [facility] @ DID THE CONTROL BAND APPEAR? YES@ DID THE BACKGROUND CLEAR? YES Name Value Range Interpretation Code Description Data Jodie rce(s) Supporting Document(s) Choriogonadotropin [Moles/volume] in Serum or Plasma NEGATIVE NEGAT JADYN [facility] @Reenter manual test result: NEGATIVE@by Irena Laura at 03/19/20 1739. ID Date Data Source [id number] 03/19/2020 05:19:00 PM EDT [facility] Name Value Range Interpretation Code Description Data Jodie rce(s) Supporting Document(s) Leukocytes [#/volume] in Blood by Automated count 7.9 10*3/uL 4.45-10 .71 N [facility] Erythrocytes [#/volume] in Blood by Automated count 4.36 10*6/uL 4.20 -5.40 N [facility] Hemoglobin [Moles/volume] in Blood 13.5 g/dL 10.7-15.4 N [facility] Hematocrit [Volume Fraction] of Blood by Automated count 40.2 % 3 7-47 N [facility] Erythrocyte mean corpuscular volume [Ent itic volume] in Cord blood by Automated count 92.2 fL 80-96 [facility] Erythrocyte mean corpuscular hemoglobin [Entitic mass] by Automated count 31.0 pg 27-31 [facility] Erythrocyte mean corpuscular hemoglobin concentration [Mass/volume] in Cord blood 33.6 g/dL 33-37 [facility] Erythrocyte distribution width [Entitic volume] by Automated count 12 % 11-15 N [facility] Platelets [#/volume] in Blood by Automated count 282 10*3/uL 130-472 N [facility] Platelet mean volume [Entitic volume] in Blood 9.6 fL 9.1-13.1 N [facility] Neutrophils/100 leukocytes in Blood by Automated count 50.8 % 41- 77 N [facility] Neutrophils [#/volume] in Blood by Automated count 4.0 U 1.7-7.6 N [facility] Lymphocytes/100 leukocytes in Blood by Automated count 32.7 % 14- 46 N [facility] Lymphocytes [#/volume] in Blood by Automated count 2.6 U 0.6-4.6 N [facility] Monocytes/100 leukocytes in Blood by Automated count 8.1 % 4-12 N [facility] Monocytes [#/volume] in Blood by Automated count 0.6 U 0.2-1.2 N [facility] Eosinophils/100 leukocytes in Blood by Automated count 7.4 % 0-7 Above high normal [facility] Eosinophils [#/volume] in Blood by Automated count 0.6 U 0.0-0.5 Above high normal [facility] Basophils/100 leukocytes in Blood by Automated count 0.5 % 0.4-1 .3 N [facility] Basophils [#/volume] in Blood by Automated count 0.0 U 0.0-0.2 N [facility] NUCLEATED RED BLOOD CELL 0 % [facility] NUCLEATED RED BLOOD CELL# 0 U [facility] Immature granulocytes [Presence] in Blood by Automated count 0-2 N [facility] Immature granulocytes [#/volume] in Blood by Automated count 0.0 U 0-0.1 N [facility] Manual Differential panel - Blood NO [facility] ID Date Data Source [id number] 03/19/2020 05:38:00 PM EDT [facility] Name Value Range Interpretation Code Description Data Jodie rce(s) Supporting Document(s) Urea nitrogen [Mass/volume] in Serum or Plasma 8 mg/dL 9-23 Below low normal [facility] Sodium [Moles/volume] in Serum or Plasma 140 mmol/L 132-146 [facility] Potassium [Moles/volume] in Serum or Plasma 3.7 mmol/L 3.5-5.5 [facility] Chloride [Moles/volume] in Serum or Plasma 108 mmol/L 99-109 [facility] Carbon dioxide, total [Moles/volume] in Serum or Plasma 27 mmol/L 20 -31 N [facility] Anion gap in Serum or Plasma 9 mmol/L 8-16 N [facility] Glucose [Mass/volume] in Serum or Plasma 96 mg/dL 74-106 [facility] Creatinine 0.7 mg/dL 0.5-1.1 [facility] Glomerular filtration rate/1.73 sq M.pre dicted [Volume Rate/Area] in Serum or Plasma Greater Than 60 ABOVE 60 [facility] Alanine aminotransferase [Enzymatic acti vity/volume] in Serum or Plasma by With P-5'-P 49 U/L 10-49 N [facility] Aspartate aminotransferase [Enzymatic ac tivity/volume] in Serum or Plasma by With P-5'-P 30 U/L 0-33 N [facility] pital Alkaline phosphatase [Enzymatic activity/volume] in Serum or Plasma 71 U/L 45-129 N [facility] Calcium [Mass/volume] in Serum or Plasma 9.5 mg/dL 8.5-10.1 N [facility] Bilirubin.total [Mass/volume] in Serum or Plasma 0.5 mg/dL 0.3-1.2 N [facility] Albumin [Mass/volume] in Serum or Plasma by Bromocresol purple (BCP) dye binding method 4.0 g/dL 3.2-4.8 N [facility] Protein [Mass/volume] in Serum or Plasma 7.4 g/dL 5.7-8.2 N [facility] ID Date Data Source [id number] 03/19/2020 05:38:00 PM EDT [facility] Name Value Range Interpretation Code Description Data Jodie rce(s) Supporting Document(s) Amylase [Enzymatic activity/volume] in Serum or Plasma 70 U/L 30- 118 N [facility] ID Date Data Source [id number] 03/19/2020 05:38:00 PM EDT [facility] Name Value Range Interpretation Code Description Data Jodie rce(s) Supporting Document(s) Lipase [Enzymatic activity/volume] in Serum or Plasma 112 U/L 73-3 93 N [facility] ID Date Data Source [id number] 03/19/2020 05:03:00 PM EDT [facility] ED Physician Documentation NAME: Eryn Navarro BRITTANIE : 1990 AGE: 30 MR#: [id number] SERVICE DATE: 03/19/[address]: Emiliano Delarosa MD PRIMARY CARE DR: Zabrina Liu [facility] ROOM#: HPI (Adult, General) General Chief Complaint: GI Stated Complaint: ABDOMINAL PAIN Resident LT, travel outisde home, exposure to hot tubs:: No Time Seen by Provider: 03/19/20 16:31 Source: patient Exam Limitations: no limitations History of Present Illness Narrative: right lower abdominal pain and nausea since last night; deniesvomiting, fever or chills, but has had some diarrhea; pain si constant and is getting worse; denies preganacy because of her IUD History of Present Illness Timing/Duration: constant and getting worse Place Injury/Event Occurred (if applicable): home Past Medical History Past Medical History: Nursing Past Medical History Has Been Reviewed Allergies/Home Meds Allergies Allergy/AdvReac Type Severity Reaction Status Date / Time Sulfa (Sulfona mide Allergy Severe COULD NOT Verified 03/19/20 17:43 Antibiotics) BREATH SEASONAL ALLERGIES Allergy Unknown Verified 03/19/20 17:43 Home Medications Medication Instructions Recorded Confirmed Last Taken Type multivitamin 1 tab PO QDAY 01/22/20 03/19/20 03/19/20 History levonorgestrel 20 mcg/24 hours (5 20 mcg INTRAUTERINE 02/01/20 03/07/20 02/01/20 History yrs) 52 mg intrauterine device meloxicam 15 mg tablet 15 mg PO QDAY 3 Days #15 tab 02/01/20 03/07/20 Unknown Rx PMH (from Triage) Patient Medical History PMH Reviewed/Updated as Needed: Yes PMH/PSH from Triage: Medical History (Updated 03/07/20 @ 11:06 by Marito Bosch MD) ISRAEL positive (Inactive Medical) Carpal tunnel syndrome on right (Chronic Medical 04/04/17) very mild right median nerve entrapment endometriosis (Inactive Medical) (Inactive Medical) Migraine with aura (Chronic Medical) PID (Resolved Medical) Polycystic ovaries (Chronic Medical) LABS IN THE PAST WERE NOT SUFFICIENT FOR MAKING DIAGNOSIS Seasonal allergic rhinitis (Chronic Medical) SLE (systemic lupus erythematosus) (Chronic Medical) Dx by Dr. Patience Cortes 06/11/16 Vertigo (Resolved Medical) Vitamin D deficiency (Chronic Medical) Surgical History (Updated 07/27/19 @ 07:50 by NERI Tejada) Cholecystectomy (Resolved Surgical 02/13/18) Lap Dr Maldonado History of - surgery (Resolved Surgical) History of - surgery (Resolved Surgical) HX ECTOPIC , LT FALLOPIAN TUBE REMOVED 2010 planters wart removal (Resolved Surgical) 2000- put to sleep for this procedure. Status post tonsillectomy (Resolved Surgical) AND ADENOIDECTOMY Female History : No Hx Drug Resistant Infections Hx MRSA: (Methicillin- resistant Staphylococcus aureus): No Hx VRE (Vancomycin-resistant enterococci): No Hx C.Diff: No Hx CRKP: No Hx Other Resistant Infection?: No Isolation: St andard precautions Hx Recent Travel Out of the country within 10 days (where): No Hx Fever: No Hx Fever with a rash?: No Social History Does patient have suicidal/homicidal thoughts or ideation?: No Are you in a relationship with/Does anyone hit you, yell/swear at you, steal from you?: No Substance Use Hx Alcohol Use: No Hx Substance Use: No Hx Substance Use Treatment: No Vaccination History Hx/Date of Tetanus, Diphtheria Vaccination: Yes Hx/Date of Influenza Vaccination: No Hx/Date of Pneumococcal Vaccination: No ROS Review of Systems Constitutional: Reports fever; Denies chills and malaise Eyes: Denies vision change ENT: Denies mouth pain, nasal pain, nasal discharge, throat pain and hoarseness Respiratory: Denies cough and SOB Cardiovascular: Denies chest pain and palpitations Gastrointestinal: Reports nausea, abdominal pain and diarrhea; Denies vomiting Genitourinary-Female: Denies dysuria, frequency and urgency Musculoskeletal: Denies neck pain, arm pain and back pain Neurologic: Denies weakness, headache and lightheadedness Physical Exam General Limitations: no limitations General appearance: alert, in distress (miold distress) and obese Head Head exam: Present atraumatic, normocephalic and normal inspection Eye Eye exam: Present normal apperance and EOMI ENT ENT exam: Present normal exam, normal orophraynx and mucous membranes moist Neck Neck exam: Present normal inspection, full ROM and supple Respiratory Respiratory exam: Present normal lung sounds bilaterally Cardiovascular Cardiovascular Exam: Present regular rate and normal rhythm GI/Abdominal GI/Abdominal exam: Present soft and tenderness (RLQ tenderness with guarding and rebound; psoas and obturator signs positive) Extremities Exam Extremities exam: Present normal inspection and full ROM; Absent tenderness Back Exam Back exam: Present normal inspection and full ROM; Absent tenderness Neurological Exam Neurological exam: Present alert, normal gait and other (speech normal) Psychiatric Psychiatric exam: Present normal affect and normal mood Skin Skin exam: Present warm, dry, intact and normal color Vital Signs Vital Signs: Vital Signs 03/19/20 17:01 Temperature 98.3 F Pulse Rate 72 Respiratory Rate 18 Blood Pressure 137/92 O2 Sat by Pulse Oximetry 99 MDM (comprehensive) Lab Data Labs: 03/19/20 17:15 03/19/20 17:15 Laboratory Results Last 24 hours 03/19/20 17:15: WBC 7.9, RBC 4.36, Hgb 13.5, Hct 40.2, MCV 92.2, MCH 31.0, MCHC 33.6, RDW 12, Plt Count 282, MPV 9.6, Immature Gran % (Auto) 0.5, Neut % (Auto) 50.8, Lymph % (Auto) 32.7, [place] % (Auto) 8.1, Eos % (Auto) 7.4 H, Baso % (Auto) 0.5, Lymph # (Auto) 2.6, Abs Immat Gran (auto) 0.0, Add Manual Diff No, Absolute Neutrophils 4.0, Monocytes # 0.6, Absolute Eosinophils 0.6 H, Absolute Basophils 0.0 03/19/20 17:15: Sodium 140, Potassium 3.7, Chloride 108, Carbon Dioxide 27, Anion Gap 9, BUN 8 L, Creatinine 0.7, GFR Calculation Greater than 60, Glucose 96, Calcium 9.5, Total Bilirubin 0.5, AST 30, ALT 49, Alkaline Phosphatase 71, Serum Total Protein 7.4, Albumin 4.0, Amylase 70, Lipase 112 03/19/20 17:15: Serum , Qual Negative 03/19/20 18:10: Urine Color Yellow, Urine Appearance Clear, Urine pH 7.0, Ur Specific [place] 1.009,Urine Protein Negative, Urine Ketones Negative, Urine Blood Negative, Urine Nitrate Negative, Urine Bilirubin Negative, Urine Urobilinogen 0.2 eu/dl, Ur Leukocyte Esterase Negative, Add Ur Microanalysis No, Urine Glucose Negative Radiology Data Radiology impressions: CT abdomen and pelvis: IMPRESSION: 1. Normal appendix. 2. Hepatic steatosis. 3. No acute pathology present within the abdomen or within the pelvis. Discharge Plan Admission/Discharge Dx Primary DC Diagnosis: abdomnal pain of uncertain etiology ED Provider: Emiliano Delarosa ED Status: Sign up Time Seen by Provider: 03/19/20 16:31 Triaged At: 03/19/20 16:30 Discharge Detail Disposition: Home, Self-Care Med Rec New Prescriptions: Continued multivitamin Tablet 1 tab PO QDAY RF: 0 meloxicam [Mobic] 15 mg tablet 15 mg PO QDAY 3 Days Qty: 15 RF: 3 Mirena 20 mcg/24 hours (5 yrs) 52 mg intrauterine device 20 mcg intrauterine RF: 0 Discharge Education Printouts: Abdominal Pain (ED) Discharge Problem: Abdominal pain Medications Medication reconciliation performed by provider at discharge: Yes Follow Up Care/Instructions Diet/Activity/Wound Care..: drink plenty of fluids; take Tylenol or Ibuprofen, as needed for pain; return to the ED for any new or worsening symptoms *Dis charge Patient* Discharge Orders: Discharge Order (Routine); Ordered 03/19/20 Ordered By: Emiliano Delarosa Interventions Interventions: ED GI Gastrointestinal Last Done: 03/19/20 16:36 Report Signers: <Electronically signed by Emiliano Delarosa MD> Emiliano Delarosa MD 03/19/20 1831 Emiliano Delarosa MD SIGNATURE DA Report Cosigners: D: ROMAN 03/19/201702 T: ROMAN 03/19/201702 CC: Zabrina Liu Name Value Range Interpretation Code Description Data Jodie rce(s) Supporting Document(s) ID Date Data Source [id number] 03/07/2020 12:17:00 PM EDT [facility] Method of Collection:: Clean Catch Name Value Range Interpretation Code Description Data Jodie rce(s) Supporting Document(s) Color of Urine [facility] Appearance of Urine CLEAR [facility] pH of Urine by Test strip 7.0 5-8 [facility] Specific gravity of Urine by Refractometry 1.003 1.005 -1.030 Abnormal (applies to non-numeric results) [facility] Leukocyte esterase [Presence] in Urine by Test strip NEGAT JADYN [facility] Nitrite [Presence] in Urine by Test strip NEGATIVE [facility] Protein [Presence] in Urine by Test strip NEGATIVE [facility] Glucose [Mass/volume] in Urine by Automated test strip NEGATIVE NEG ATIVE [facility] Ketones [Presence] in Urine by Test strip NEGATIVE [facility] Urobilinogen [Presence] in Urine 0.2-1 EU/dl [facility] Bilirubin.total [Presence] in Urine by Automated test strip NEGATIVE [facility] Erythrocytes [#/volume] in Urine by Test strip NEGATIVE NEGATIVE [facility] URINE MICROSCOPIC? (CIF) NO [facility] ID Date Data Source [id number] 03/07/2020 09:56:00 AM EDT [facility] Patient Name: Eryn Navarro Lm : 1990 Sex: F Pt Unit #: [id number] Location:[facility] Provider: Visit Date/Time: 03/07/20 Primary Insurance: [facility] Secondary Insurance: Self Pay Intake Vital Signs 03/07/20 10:01 Current Height 5 ft 4 in Current Weight 223 lb 8 oz Weight Measurement Method Standing Scale BMI 38.3 BP 142/88 Blood Pressure Location Lt brachial Position Sitting Respiration 18 Pulse 89 Pulse Strength Normal Pulse Source Pulse Oximeter Temp 98.2 F Temp Source Tympanic Pulse Oximetry (%) 97 Oxygen Delivery Method room air Intake Visit Reasons: IUD Check Nurse Note: Patient presents to the clinic today for an IUD check. She notes that it was placed due to heavy bleeding and help with her cysts. She notes that this second IUD and she does not feel thatit is helping with her ovarian cysts. She does not get a period but continues to get cysts. She notes lower Right Quad pain. She did have a small cyst there. She is unsure if the pain is from thator something else. Sex Therapist Required: No Accompanied by: Self / Same as Patient Is patient in pain?: Yes (Right lower quadrant) Pain scale (1-10): 3 Allergies Sulfa (Sulfonamide Antibiotics) Allergy (Severe, Verified 03/07/20 10:30) COULD NOT BREATH SEASONAL ALLERGIES Allergy (Unknown, Verified 03/07/20 10:30) Patient : No Fall Risk History of falls: Yes PHQ-2/9 Over the last 2 weeks, how often have you been bothered by any of the following problems? 1. Little interest or pleasure in doing things: not at all 2. Feeling down, depressed, or hopeless: not at all Total score: 0 HIV Testing Offer - ages 13-64 HIV testing Offer: No Requirement for HIV testing offer been met?: Patient reports past refusal SBIRT Annual Questionnaire Are you currently in recovery for alcohol or substance use?: No Do you need a note to return Do you need a note to return to daycare/school/sports/work: No Coronavirus Screening Screening Have you traveled outside of [facility] or [facility] in the last 14 days.: No Has patient experienced coronavirus symptoms: No PFSH Medical History ISRAEL positive (Inactive) Carpal tunnel syndrome on right (Chronic 04/04/17) endometriosis (Inactive) (Inactive) Migraine with aura (Chronic) PID (Resolved) Polycystic ovaries (Chronic) Seasonal allergic rhinitis (Chronic) SLE (systemic lupus erythematosus) (Chronic) Vertigo (Resolved) Vitamin D deficiency (Chronic) Surgical History Cholecystectomy (Resolved 02/13/18) History of - surgery (Resolved) History of - surgery (Resolved) planters wart removal (Resolved) Status post tonsillectomy (Resolved) Family History Mother Systemic lupus erythematosus Depression Transient ischemic attack Father Diabetes mellitus, type 2 Brother No problems noted. 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 current occupational exposures/hazards: No Hx Recent Travel (where): No well-balanced diet: daily high-fat food intake: 0-1 times daily daily servings fruits/ve-4 daily servings of milk/calcium: 2-4 eating out: rarely or never reads food labels: usually or always during the past year weight has: increased > 10 lbs alcohol intake: current alcohol intake frequency: holidays/special occasions only substance use type: does not use seatbelt use: always helmet use: Yes drive intox or ride w/ intox 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 driver: No working smoke detector in home: Yes fire extinguisher in home: Yes carbon monox detector in home: Yes firearms in home: Yes firearms unloaded and locked: Yes do you feel safe at home: Yes victim of physical abuse: No victim of emotional abuse: No victim of sexual abuse: No would you like helpful sources: No Female Reproductive History Menstrual Age of Menarche: 10 Duration of menses: other (ABSENT) control method: progestin IUCD Total pregnancies: 3 Full term: 2 Premature: 0 Ab induced: 0 Ab spontaneous: 0 Ectopics: 1 Multiple births: 0 HPI Additional HPI HPI Details: 30-year-old CF LMP: 01/2020. Patient had Mirena IUD placed on 02/01/2020, same day the previous IUD was removed. Says she had a little bit of spotting afterwards for about 2-3 days, nothing since. Patient complains of right lower quadrant abdominalpelvic pain. It is a dull aching pain, before intermittent, now more constant. Patient has history of urinary frequency for a while now, but no urgency, dysuria or hematuria. No hesitancy. Patient states she had surgery for a left ectopic , 9 years ago, at that time she was told she had endometriosis and pelvic adhesions. Her first Mirena IUD, have decrease her heavy menses, sev ere dysmenorrhea and pelvic pain. Over thepast couple of years, the pain has gradually been going up. It feels more constant than intermittent. Sonogram she had on January 22, 2020, showed a right ovarian cyst, 2 cm size. Patient is sexually active. Now has increased pain with coitus. No other complaints. Review of Systems Const Denies anorexia, Denies fatigue, Denies fever(s), Denies weight gain and Denies weight loss ENT Denies dysphagia Card Denies chest pain, Denies pedal edema, Denies lightheadedness, Denies palpitations and Denies dyspnea Resp Denies dyspnea GI Reports abdominal pain (01/21, RLQ.), Denies change in bowel habits, Denies dysphagia, Denies early satiety, Denies heartburn, Denies diarrhea, Denies nausea and Denies vomiting Denies abnormal vaginal bleeding, Reports amenorrhea, Denies difficulty voiding, Reports pelvic pain(Increasing pain with time, over 1-2 yrs.), Denies urinary incontinence and Denies urinary urgency Details: Urinary frequency. Endo Denies fatigue and Denies palpitations Exam Const General: cooperative, healthy appearing, no acute distress, well developed and well groomed Nutritional Appearance: well nourished Orientation: alert, awake and oriented x3 HENMT Head: normal to inspection, normocephalic and atraumatic Ears: hearing grossly normal bilaterally and external ears normal General nose exam: external nose normal, nares normal, septum normal and no nasal discharge Face and sinus: normal facial exam Mouth: oral mucosae normal, lip normal, tongue normal and moist mucous membranes General: bladder abnormal tender (Moderately tender.) Distended: Moderate If distended, up to where:midway to bladder External Female Exam: normal external appearance (No erythema or lesions.) and normal appearance of the urethra Urethra: normal appearance of the urethra Speculum Exam - Vagina: normal appearance of the vagina and normal vaginal discharge (Small mucous.) Speculum Exam - Cervix: normal appearance of the cervix (IUD string visible on cervix.) Bimanual Exam- Vagina Uterus: normal bimanual exam, normal palpation, uterine size normal, consistency normal, normal palpation (Mildmoderate CMT.), uterine mobility normal, uterine shape normal, cervical motion tenderness (Mildmoderate CMT.) and tender (Anteverted, moderately tender.) Bimanual Exam- Adnexa, other: normal adnexae, normal and tender (Moderately tender bilaterally, no masses.) Pelvic Support: normal Assessment Plan Assessment Plan (1) Encounter for management of intrauterine contraceptive device (IUD): Code(s): Z30.431 - Encounter for routine checking of intrauterine contraceptive device Plan - Marito Bosch MD: 1. Mirena IUD in situ. (2) Pelvic pain: Status: Acute Code(s): R10.2 - Pelvic and perineal pain SNOMED Code(s): 91662237 Category: Medical Plan - Marito Bosch MD: 1. Pelvic pain: Possibly PID. 2. Doxycycline 100 mg p.o. twice daily x14 days. Flagyl 500 mg p.o. twice daily x14 days. Diflucan 150 mg p.o. weekly x2, refill x3. 3. Patient has a history of endometriosis and pelvic adhesions, which was diagnosed 9 years ago, atthe time of a left ectopic salpingectomy. If there is no change in pelvic pain with Doxycycline/Flagyl, may try patient on Lupron x3-6 months. Will leave IUD in situ during that time. 4. Increasing dyspareunia over the past few months. History of left ovarian cyst. Will do pelvic sonogram at next visit. Medications: New: doxycycline hyclate 1 tab by mouth twice a day for 14 days 100 mg PO BID 14 days 28 caps 0RF PID metronidazole (Flagyl) 1 tab by mouth twice a day for 14 days 500 mg PO BID 14 days 28 tabs 0RF PID (3) PID (pelvic inflammatory disease): Status: Acute Code(s): N73.9 - Female pelvic inflammatory disease, unspecified SNOMED Code(s): 424336311 Category: Medical Orders Other Medications: New: doxycycline hyclate 1 tab by mouth twice a day for 14 days 100 mg PO BID 14 days 28 caps 0RF PID N73.0 metronidazole (Flagyl) 1 tab by mouth twice a day for 14 days 500 mg PO BID 14 days 28 tabs 0RF PID N73.0 fluconazole (Diflucan) 1 tab by mouth once a week IF NEEDED 150 mg PO QWEEK 2 weeks PRN 2 tabs 3RF Chano B37.3 Follow Up: 4 Weeks Electronically Signed By: <Electronically signed by Marito Bosch MD> Date/Time Signed: 03/07/20 1111 Name Value Range Interpretation Code Description Data Jodie rce(s) Supporting Document(s) ID Date Data Source [id number] 02/04/2020 08:17:00 AM EDT [facility] SP DESC: IUD CULTURENO ANAEROBIC ORGANIS MS ISOLATED Name Value Range Interpretation Code Description Data Jodie rce(s) Supporting Document(s) Bacteria identified in Genital specimen by Aerobe culture SP DESC: IUD CULTURE [facility] No N. Gonorrhoaea isolatedFEW Staph Spp. coag neg ID Date Data Source [id number] 02/04/2020 08:17:00 AM EDT [facility] SP DESC: IUD CULTURENO ANAEROBIC ORGANIS MS ISOLATED Name Value Range Interpretation Code Description Data Jodie rce(s) Supporting Document(s) ID Date Data Source [id number] 02/01/2020 11:03:00 AM EDT [facility] Patient Name: ERYN NAVARRO LM : 1990 Sex: F Pt Unit #: [id number] Location:[facility] Provider: Visit Date/Time: 02/01/20 Primary Insurance: [facility] Secondary Insurance: Self Pay ADDENDUM Labs: 01/22/2020: Papnegative; HPVHRnegative. Pelvic sonogram: 01/22/2020: Uterus9.7 x 3.5 x 5.9 cm. Normal size and echogenicity. No evidence of lobulation or contour abnormality. Endometrium: 4.[address] Right ovary: 4.2 x 2.7 x 3.0 cm. Right ovarian cyst2.6 x 2.6 x 1.8 cm. Left ovary: 2.4 x 1.7 x 1.8 cm. Both ovaries demonstrate normal spectral waveforms. Both ovaries demonstrate normal spectral waveforms. The bladder is unremarkable. No free fluid in the pelvis. <Electronically signed by Marito Bosch MD> Addendum Signed By: Date/Time: 02/01/20 1441 Intake Vital Signs 02/01/20 11:04 Current Height 5 ft 4 in Current Weight 225 lb Weight Measurement Method Standing Scale BMI 38.6 BP 142/98 Blood Pressure Location Lt brachial Position Sitting Respiration 18 Pulse 78 Pulse Strength Normal Pulse Source Pulse Oximeter Temp 98.3 F Temp Source Tympanic Pulse Oximetry (%) 97 Oxygen Delivery Method room air Intake Visit Reasons: IUD Placement Nurse Note: Pt is here for IUD Mirena removal and replacement and pap results. Pt has had IUD since 2014 and has not had a period since then. Urine HCG test done in office and negative. Pt signed consent for procedure. IUD removed and replaced with Mirena, [facility] #: [id number], lot #: [id number], exp: 01/2022. Remove by 01/31/2025. Sex Therapist Required: No Accompanied by: Self / Same as Patient Is patient in pain?: No Allergies Sulfa (Sulfonamide Antibiotics) Allergy (Severe, Verified 02/01/20 11:54) COULD NOT BREATH SEASONAL ALLERGIES Allergy (Unknown, Verified 02/01/20 11:54) Is last menstrual period known: No Post menopausal: No Patient : No Fall Risk History of falls: No Ambulatory Aid:: None Gait/Transferring:: Normal HIV Testing Offer - ages 13-64 HIV testing Offer: No SBIRT Annual Questionnaire Are you currently in recovery for alcohol or substance use?: No Do you need a note to return Do you need a note to return to daycare/school/sports/work: No Coronavirus Screening Screening Risk:travel to high risk area;contact w/ high risk person: No Has patient experienced coronavirus symptoms: No PFSH Medical History ISRAEL positive (Inactive) Carpal tunnel syndrome on right (Chronic 04/04/17) endometriosis (Inactive) (Inactive) Migraine with aura (Chronic) PID (Resolved) Polycystic ovaries (Chronic) Seasonal allergic rhinitis (Chronic) SLE (systemic lupus erythematosus) (Chronic) Vertigo (Resolved) Vitamin D deficiency (Chronic) Surgical History Cholecystectomy (Resolved 02/13/18) History of - surgery (Resolved) History of - surgery (Resolved) planters wart removal (Resolved) Status post tonsillectomy (Resolved) Family History Mother Systemic lupus erythematosus Depression Transient ischemic attack Father Diabetes mellitus, type 2 Brother No problems noted. 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 current occupational exposures/hazards: No Hx Recent Travel (where): No well- balanced diet: daily high-fat food intake: 0-1 times daily daily servings fruits/ve-4 daily servings of milk/calcium: 2-4 eating out: rarely or never reads food labels: usually or always during the past year weight has: increased > 10 lbs alcohol intake: current alcohol intake frequency: holidays/special occasions only substance use type: does not use seatbelt use: always helmet use: Yes drive intox or ride w/ intox 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 driver: No working smoke detector in home: Yes fire extinguisher in home: Yes carbon monox detector in home: Yes firearms in home: Yes firearms unloaded and locked: Yes do you feel safe at home: Yes victim of physical abuse: No victim of emotional abuse: No victim of sexual abuse: No would you like helpful sources: No Female Reproductive History Menstrual Age of Menarche: 10 Duration of menses: other (ABSENT) control method: progestin IUCD Ab induced: 0 Ab spontaneous: 0 Ectopics: 1 HPI Additional HPI HPI Details: 29y/o CF LMP: 01/2012, Mirena in situ. Patient had been evaluated 2wks ago with c/o chronic pelvic pain and old IUD that she wanted out. New Mirena available, pelvic sonogram done. Patient says still has chronic pelvic pain, constant. Reviewed pelvic sonogram. Shows Right ovariancyst, and otherwise normal pelvis. Patient says at the time of her surgery for ectopic 2010, she was told by the [employer] at that time, that she had endometriosis, and that tissue was removed which had endometriosis in it. Wants something for the pain, and possibily long-term treatment for endometriosis. No other complaints. Review of Systems Const Denies anorexia, Denies fatigue, Denies fever(s), Denies weight gain and Denies weight loss Card Denies chest pain, Denies pedal edema, Denies lightheadedness, Denies palpitations and Denies dyspnea Resp Denies dyspnea Denies abnormal vaginal bleeding, Denies difficulty voiding, Reports pelvic pain, Denies urinary incontinence and Denies urinary urgency Endo Denies fatigue and Denies palpitations Exam Const General: cooperative, healthy appearing, no acute distress, well developed and well groomed Nutritional Appearance: well nourished Orientation: alert, awake and oriented x3 HENMT Head: normal to inspection, normocephalic and atraumatic Ears: hearing grossly normal bilaterally and external ears normal General nose exam: external nose normal, nares normal, septum normal and no nasal discharge Face and sinus: normal facial exam Mouth: oral mucosae normal, lip normal, tongue normal and moist mucous membranes General: bladder normal to palpation External Female Exam: external appearance normal and normal appearance of the urethra (No e rythema or lesions.) Urethra: normal appearance of the urethra (No erythema or lesions.) Speculum Exam - Vagina: normal appearance of the vagina and normal vaginal discharge Speculum Exam - Cervix: normal appearance of the cervix Bimanual Exam- Vagina Uterus: normal bimanual exam, normal vaginal palpation, uterine size normal (Anteverted, nontender.), bladder normal to palpation, uterine consistency normal, normal cervical palpation (No CMT.), uterine mobility normal and uterine shape normal Bimanual Exam- Adnexa, other: normal adnexae and pelvic support normal Pelvic Support: normal Office Procedures IUD Insertion Diagnosis: Contraception: Mirena IUD insertion. Informed consent given: Yes Consent signed: Yes Patient tolerated procedure: well Procedure note: Used speculum was placed in the vagina cavity. Cervix and vagina was cleaned with Betadine solution 3 times, the last 2 times lidocaine gel was added to Betadine swab. Anterior cervical lip was then grasped with single-tooth tenaculum. Uterus was sounded to 8 cm. Lidocaine gel was applied to the IUD introducer, the introducer was slowly placed into the uterus toreach the fundus. Pulled back 1cm. Arms of IUD deployed. Waited 30 seconds, Mirena IUD deployed. Introducer removed. String was then cut, leaving 4cm of string behind. Patient tolerated procedure well without complication. Discharged home in satisfactory condition. IUD Removal Diagnosis: Contraception: Removal of IUD. Informed consent given: Yes Consent signed: Yes Patient tolerated procedure: well Procedure note: A sterile speculum with a light attached, was introduced into the vagina cavity, cervix was visualized. Because of thickness of the mucus, unable to see the IUD string properly. Mucus was cleaned of the cervix IUD string was noticed in the external os. Every attempt to remove it with a sponge stick was not successful. A Cytobrush was introduced into the endocervical canal, and several attempts were made to try to get the string down. Not successful. The cervix was then cleaned with Betadinesolution the last 2 swabs of Betadine infused with Lidocaine gel. A straight clamp was obtained, and slowly we reached inside the cervical os the IUD string, grabbed it and slowly brought it out. Patient tolerated procedure well. Speculum was then removed. Assessment Plan Assessment Plan (1) Encounter for removal and reinsertion of IUD: Status: Acute Code(s): Z30.433 - Encounter for removal and reinsertion of intrauterine contraceptive device SNOMED Code(s): 552588429 Category: Medical Plan - Marito Bosch MD: 1. Mirena IUD removed without complication. Patient had to be instrumented 3 times to get IUD out,so to discharge home on Doxycycline, because of risk of endometritis. 2. Doxycycline 100 mg p.o. twice daily x7 days. Diflucan 150 mg p.o. weekly x1, refill x2. Old Mirena IUD sent for culture. 3. New Mirena IUD placed in the uterus without complication. 4. Return to office in 4 weeks to check IUD placement. (2) Pelvic pain: Status: Acute Code(s): R10.2 - Pelvic and perineal pain SNOMED Code(s): 80554068 Category: Medical Plan - Marito Bosch MD: 1. History of chronic pelvic pain. 2. Sonogram diagnosis of right ovarian cyst, small. 3. History of endometriosis diagnosed in 2010. 4. To give Mobic 15 mg daily x3 days each month, to see if it will help chronic pelvic pain. 5. If pain is not resolved in 2 to 3 months, to place on Lupron Depot IM q. monthly for 6 months. Explained how Lupron works. Orders Other Medications: New: doxycycline hyclate 1 tab by mouth twice a day for 7 days 100 mg PO BID 7 days 14 tabs 0RF infection fluconazole (Diflucan) 1 tab by mouth once a week IF NEEDED 150 mg PO QWEEK 1 week PRN 1 tab 2RF Chano meloxicam (Mobic) 1 tab by mouth for 3 days every month 15 mg PO QDAY 3 days 15 tabs 3RF pelvic pain Discontinued: levonorgestrel (Mirena) Discontinued Reason: Order intrauterine Other Orders: Orders: IUD culture Today Z30.432 Follow Up: 4 Weeks Electronically Signed By: <Electronically signed by Marito Bosch MD> Date/Time Signed: 02/01/20 1436 Name Value Range Interpretation Code Description Data Jodie rce(s) Supporting Document(s) ID Date Data Source [id number] 01/29/2020 02:09:00 PM EDT [facility] Patient Name: ERYN NAVARRO LM : 1990 Sex: F Pt Unit #: [id number] Location:[facility] Provider: Visit Date/Time: 01/29/20 Primary Insurance: [facility] Secondary Insurance: Self Pay Intake Vital Signs 01/29/20 14:09 Current Height 5 ft 4 in Current Weight 219 lb 0.4 oz Weight Measurement Method Standing Scale BMI 37.5 BP 136/82 Blood Pressure Location Lt brachial Position Sitting Pulse 78 Pulse Strength Normal Pulse Source Pulse Oximeter Temp 98.6 F Temp Source Tympanic Pulse Oximetry (%) 98 Oxygen Delivery Method room air Intake Visit Reasons: Pelvic Pain Follow-up Nurse Note: Pt presents for f/u of pelvic pain. Pt is currently taking Cipro and her last dose is . Pt states that she continues to have lower right abdominal pain which is radiating to herlower back. She states that it is consistent with occasional sharp shooting pains. Pt had labs:UAC C, pelvic sono, swabs, and a PAP on 01/22/2020. Pt's PAP is still pending. Sex Therapist Required: No Accompanied by: Self / Same as Patient Is patient in pain?: Yes (right abdomen and lower back) Pain scale (1-10): 7 Allergies Sulfa (Sulfonamide Antibiotics) Allergy (Severe, Verified 09/06/19 15:08) COULD NOT BREATH SEASONAL ALLERGIES Allergy (Unknown, Verified 09/06/19 15:08) Is last menstrual period known: No Post menopausal: No Patient : No Fall Risk Ambulatory Aid:: None Gait/Transferring:: Normal Medications:: No High Risk Medications HIV Testing Offer - ages 13-64 Requirement for HIV testing offer been met?: Patient reports past refusal SBIRT Annual Questionnaire Are you currently in recovery for alcohol or substance use?: No How many times in the past year have you had 4 or more drinks in a day?: None How many times in the past year have you used a recreational drug or used a prescription medication for nonmedical reasons?: None Do you need a note to return Do you need a note to return to daycare/school/sports/work: No Coronavirus Screening Screening Risk:travel to high risk area;contact w/ high risk person: No Has patient experienced coronavirus symptoms: No PFSH Medical History ISRAEL positive (Inactive) Carpal tunnel syndrome on right (Chronic 04/04/17) endometriosis (Inactive) (Inactive) Migraine with aura (Chronic) PID (Resolved) Polycystic ovaries (Chronic) Seasonal allergic rhinitis (Chronic) SLE (systemic lupus erythematosus) (Chronic) Vertigo (Resolved) Vitamin D deficiency (Chronic) Surgical History Cholecystectomy (Resolved 02/13/18) History of - surgery (Resolved) History of - surgery (Resolved) planters wart removal (Resolved) Status post tonsillectomy (Resolved) Family History Mother Systemic lupus erythematosus Depression Transient ischemic attack Father Diabetes mellitus, type 2 Brother No problems noted. 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 current occupational exposures/hazards: No Hx Recent Travel (where): No well- balanced diet: daily high-fat food intake: 0-1 times daily daily servings fruits/ve-4 daily servings of milk/calcium: 2-4 eating out: rarely or never reads food labels: usually or always during the past year weight has: increased > 10 lbs alcohol intake: current alcohol intake frequency: holidays/special occasions only substance use type: does not use seatbelt use: always helmet use: Yes drive intox or ride w/ intox 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 driver: No working smoke detector in home: Yes fire extinguisher in home: Yes carbon monox detector in home: Yes firearms in home: Yes firearms unloaded and locked: Yes do you feel safe at home: Yes victim of physical abuse: No victim of emotional abuse: No victim of sexual abuse: No would you like helpful sources: No Female Reproductive History Menstrual Age of M enarche: 10 Duration of menses: other (ABSENT) control method: progestin IUCD Ab induced: 0 Ab spontaneous: 0 Ectopics: 1 HPI Additional HPI HPI Details: 29 yo with H/O chronic pelvic pain with recent worsening which prompted last visit 01/22/20. Currently taking cipro for presumed UTI, but urine cx was negative. GC and chlamydia cx neg. Pt has Mirena since 01/2015 and has appt to replace. Pelvic sono 01/22/20 revealed normal uterus, IUD in proper position and 2.6 cm right ovarian cyst. Pt has H/O migraines with aura and lupus. Duration: chronic Pelvic Pain Pelvic pain severity: moderate Location: right lower quadrant Quality: sharp, shooting and radiates to back (right side) Timing: often present Associated symptoms: Denies nausea, vomiting or vaginal discharge Changes with: nothing Review of Systems Const Reports as per HPI and Denies poor appetite GI Denies nausea and Denies vomiting Reports amenorrhea (due to Mirena), Denies urinary frequency, Denies urinary urgency and Denies vaginal discharge Psych Denies change in appetite Exam Const General: cooperative, healthy appearing, comfortable and no acute distress Orientation: alert, awake and oriented x3 Psych Appearance: grossly normal Mood: congruent mood Attitude: cooperative Assessment Plan Assessment Plan (1) Pain in female pelvis: Code(s): R10.2 - Pelvic and perineal pain Plan - Zev Figueroa, DO: H/O right sided pelvic pain. Right ovarian cyst. No need for F/U. Can discontinue cipro since urine cx was negative. Discussed possible tr eatment with progestins(has H/O migraines with aura) ie: depo provera or micronor for possible endometriosis. Risks and benefits discussed. She has appt for mirena replacement but will think about alternatives. Electronically Signed By: <Electronically signed by Zev Figueroa DO> Date/Time Signed: 01/29/20 2412 Name Value Range Interpretation Code Description Data Jodie rce(s) Supporting Document(s) ID Date Data Source [id number] 01/23/2020 08:09:00 AM EDT [facility] [address] [place] [id number] [phone] NAME SEX PT STATUS ACCOUNT NUMBER ERYN NAVARRO LM REG REF [id number] ORDERING PHYSICIAN LOCATION MEDICAL RECORD NO. Marito Bosch MD [id number] ATTENDING PHYSICIAN DATE OF DATE OF EXAM/TIME Zabrina Liu RPA 1990 01/22/201841 TYPE / EXAM US Pelvic complete REASON FOR EXAM pelvic pain COMPARISON: None FINDINGS: The uterus is normal in size and echogenicity. There is no evidence of lobulation or contour abnormality. The adnexa reveal no evidence of mass, cysts, or other abnormality. No fluid is seen inthe cul-de-sac. The uterus measures 9.7 x 3.5 [...] Trans Dt/Tm: Trans by: DT Prt Dt/Tm: 21: Total DLP = 0.00 mGy-cm : Total Radiation Dose = 0.0000 mSv Lifetime Dose: 0 mSv Name Value Range Interpretation Code Description Data Jodie rce(s) Supporting Document(s) ID Date Data Source [id number] 01/30/2020 07:47:00 AM EDT [facility] LAST MENSTRUAL PERIOD [id number] on Technique: BRUSH-SPATULAPATIENT INFORMATION: IUDPREVIOUS CYTOLOGY: NEGATIVEDATES AND RESULTS: 2018 pap negativePREVIOUS TREATMENT: NONEBody Site: CERVIX Name Value Range Interpretation Code Description Data Jodie rce(s) Supporting Document(s) Microscopic observation [Identifier] in Cervix by Cyto stain.thin pre p [facility] ID Date Data Source [id number] 01/24/2020 06:06:00 AM EDT [facility] NegativeNegativePerformed at: [facility] [address] [id number] Director: Shanell Kyle MD, Phone: [phone] @01/22/20 1658: UA W/ MICRO added. RFLXG = UMIC CIF.Method of Collection:: Clean Catch @01/22/20 1728: Urine culture added. RFL XG = CULT.ADD. @01/22/20 1658: UA W/ MICRO added. RFLXG = UMIC CIF.Method of Collection:: Clean Catch Name Value Range Interpretation Code Description Data [facility] rce(s) Supporting Document(s) Trichomonas vaginalis DNA [Presence] in Unspecified specimen by Probe and target amplification method Negative [facility] Performed at: [facility] [address] [place] [id number] Director: Shanell Kyle MD, Phone: [phone] Gardnerella vaginalis rRNA [Presence] in Genital specimen by DNA probe Negative [facility] Chano sp rRNA [Presence] in Vaginal fluid by DNA probe N egative [facility] ID Date Data Source [id number] 01/24/2020 06:06:00 AM EDT [facility] NegativeNegativePerformed at: [facility] [address] [id number] Director: Shanell Kyle MD, Phone: [phone] @01/22/20 1658: UA W/ MICRO added. RFLXG = UMIC CIF.Method of Collection:: Clean Catch @01/22/20 1728: Urine culture added. RFL XG = CULT.ADD. @01/22/20 1658: UA W/ MICRO added. RFLXG = UMIC CIF.Method of Collection:: Clean Catch Name Value Range Interpretation Code Description Data Jodie rce(s) Supporting Document(s) ID Date Data Source [id number] 01/22/2020 05:28:00 PM EDT [facility] NegativeNegativePerformed at: [facility] [address] [id number] Director: Shanell Kyle MD, Phone: [phone] @01/22/20 1658: UA W/ MICRO added. RFLXG = UMIC CIF.Method of Collection:: Clean Catch @01/22/20 1728: Urine culture added. RFL XG = CULT.ADD. @01/22/20 1658: UA W/ MICRO added. RFLXG = UMIC CIF.Method of Collection:: Clean Catch Name Value Range Interpretation Code Description Data [facility] rce(s) Supporting Document(s) Color of Urine [facility] Appearance of Urine CLEAR [facility] pH of Urine by Test strip 6.5 5-8 [facility] Specific gravity of Urine by Refractometry 1.006 1.005-1.030 [facility] Leukocyte esterase [Presence] in Urine by Test strip NEGATIVE Abnormal (applies to non-numeric results) [facility] @DO MICRO!!!!A Culture has been added to this specimen per established criteria Nitrite [Presence] in Urine by Test strip NEGATIVE [facility] Protein [Presence] in Urine by Test strip NEGATIVE [facility] Glucose [Mass/volume] in Urine by Automated test strip NEGATIVE NEG ATIVE [facility] Ketones [Presence] in Urine by Test strip NEGATIVE [facility] Urobilinogen [Presence] in Urine 0.2-1 EU/dl [facility] Bilirubin.total [Presence] in Urine by Automated test strip NEGATIVE [facility] Erythrocytes [#/volume] in Urine by Test strip NEGATIVE NEGATIVE [facility] URINE MICROSCOPIC? (CIF) Microscopic Added [facility] ID Date Data Source [id number] 01/23/2020 01:46:00 PM EDT [facility] NegativeNegativePerformed at: [facility] [address] [id number] Director: Shanell Kyle MD, Phone: [phone] @01/22/20 1658: UA W/ MICRO added. RFLXG = UMIC CIF.Method of Collection:: Clean Catch @01/22/20 1728: Urine culture added. RFL XG = CULT.ADD. @01/22/20 1658: UA W/ MICRO added. RFLXG = UMIC CIF.Method of Collection:: Clean Catch Name Value Range Interpretation Code Description Data Jodie rce(s) Supporting Document(s) Bacteria identified in Urine by Culture [facility] ID Date Data Source [id number] 01/22/2020 05:28:00 PM EDT [facility] NegativeNegativePerformed at: [facility] [address] [id number] Director: Shanell Kyle MD, Phone: [phone] @01/22/20 1658: UA W/ MICRO added. RFLXG = UMIC CIF.Method of Collection:: Clean Catch @01/22/20 1728: Urine culture added. RFL XG = CULT.ADD. @01/22/20 1658: UA W/ MICRO added. RFLXG = UMIC CIF.Method of Collection:: Clean Catch Name Value Range Interpretation Code Description Data Jodie rce(s) Supporting Document(s) Leukocytes [#/volume] in Urine by Manual count 8-12 /hpf 0-5 Above high normal [facility] Cells [Type] in Urine sediment by Light microscopy [facility] Bacteria [Presence] in Urine sediment by Light microscopy NEGATIVE Above high normal [facility] ID Date Data Source [id number] 01/22/2020 02:37:00 PM EDT [facility] Patient Name: ERYN NAVARRO LM : 1990 Sex: F Pt Unit #: [id number] Location:[facility] Provider: Visit Date/Time: 01/22/20 Primary Insurance: [facility] Secondary Insurance: Self Pay Intake Vital Signs 01/22/20 14:38 Current Height 5 ft 4 in Current Weight 220 lb 0.4 oz Weight Measurement Method Standing Scale BMI 37.8 BP 134/84 Blood Pressure Location Lt brachial Position Sitting Respiration 18 Pulse 89 Pulse Strength Normal Pulse Source Pulse Oximeter Temp 99.0 F Temp Source Tympanic Pulse Oximetry (%) 98 Oxygen Delivery Method room air Intake Visit Reasons: Pelvic pain Nurse Note: Pt presents today for complaints of pelvic pain. Pt has hx of PID, PCOS, and endometriosis. Pt also has lupus. Pt states that she has had lower back, lower abdomen and cervix pain for the last week. Pt states that her cervix feels like it is burning. She was in the ER overweekend was told that she had a pulled muscle in her lower back. States she takes Synthroid but has not taken it in several months due to not getting back into her dr for refills. Pt's last visit was 11/01/19 and had labs, urine and a pelvic ultrasound completed. She was tx withantibiotics at that time. Pt stated that she did improved after that but her sx have returned. Sex Therapist Required: No Accompanied by: Self / Same as Patient Is patient in pain?: Yes (lower back, abdomen and cervix) Pain scale (1-10): 4 Allergies Sulfa (Sulfonamide Antibiotics) Allergy (Severe, Verified 09/06/19 15:08) COULD NOT BREATH SEASONAL ALLERGIES Allergy (Unknown, Verified 09/06/19 15:08) Is last menstrual period known: No Post menopausal: No Patient : No Fall Risk History of falls: No Ambulatory Aid:: None Gait/Transferring:: Normal Medications:: No High Risk Medications HIV Testing Offer - ages 13-64 Requirement for HIV testing offer been met?: Patient reports past refusal SBIRT Annual Questionnaire Are you currently in recovery for alcohol or substance use?: No How many times in the past year have you had 4 or more drinks in a day?: None How many times in the past year have you used a recreational drug or used a prescription medication for nonmedical reasons?: None Do you need a note to return Do you need a note to return to daycare/school/sports/work: No [facility] Medical History ISRAEL positive (Inactive) Carpal tunnel syndrome on right (Chronic 04/04/17) endometriosis (Inactive) (Inactive) Migraine with aura (Chronic) PID (Resolved) Polycystic ovaries (Chronic) Seasonal allergic rhinitis (Chronic) SLE (systemic lupus erythematosus) (Chronic) Vertigo (Resolved) Vitamin D deficiency (Chronic) Surgical History Cholecystectomy (Resolved 02/13/18) History of - surgery (Resolved) History of - surgery (Resolved) planters wart removal (Resolved) Status post tonsillectomy (Resolved) Family History Mother Systemic lupus erythematosus Depression Transient ischemic attack Father Diabetes mellitus, type 2 Brother No problems noted. 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 current occupational exposures/hazards: No Hx Recent Travel (where): No well- balanced diet: daily high-fat food intake: 0-1 times daily daily servings fruits/ve-4 daily servings of milk/calcium: 2-4 eating out: rarely or never reads food labels: usually or always during the past year weight has: increased > 10 lbs alcohol intake: current alcohol intake frequency: holidays/special occasions only substance use type: does not use seatbelt use: always helmet use: Yes drive intox or ride w/ intox 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 driver: No working smoke detector in home: Yes fire extinguisher in home: Yes carbon monox detector in home: Yes firearms in home: Yes firearms unloaded and locked: Yes do you feel safe at home: Yes victim of physical abuse: No victim of emotional abuse: No victim of sexual abuse: No would you like helpful sources: No Female Reproductive History Menstrual Age of M enarche: 10 Duration of menses: other (ABSENT) control method: progestin IUCD Total pregnancies: 3 Full term: 2 Premature: 0 Ab induced: 0 Ab spontaneous: 0 Ectopics: 1 Multiple births: 0 HPI Additional HPI HPI Details: 29-year-old CF -0-1-2 LMP: 01/2015, Mirena IUD, amenorrhea. Patient presents with past history of chronic pelvic pain for many years. IUD placed in January 2015, and it helped bring down level of pelvic pain, but never really went away,about 3/10. Has also had a history of endometriosis since teen years. Had an ectopic in 2010, with a left salpingectomy, at [facility]. For the past 1 week has had increased pain in pelvis. Mostly aching in nature, intensity of 45/10,but intermittently sharp, doubles around her waist and makes her double over in pain about 7/10. No complaints of urinary frequency, hesitancy, urgency, dysuria or hematuria. Patient is sexually active. Has been with the same partner for 15-16 years. No history of STDs. She says she has had pain before Mirena was placed in 2014, pain has gone down since Mirena placed. This current pain feels different. No other complaints. Pelvic Pain Associated symptoms: Denies nausea, vomiting, diarrhea or fever(s) Review of Systems Const Denies anorexia, Denies fatigue, Denies fever(s), Denies weight gain and Denies weight loss ENT Denies dysphagia Card Denies chest pain, Denies pedal edema, Denies lightheadedness, Denies palpitations and Denies dyspnea Resp Denies dyspnea GI Reports abdominal pain, Denies change in bowel habits, Denies dysphagia, Denies early satiety, Denies heartburn, Denies diarrhea, Denies nausea and Denies vomiting Denies abnormal vaginal bleeding, Denies difficulty voiding, Denies pelvic pain, Denies urinary incontinence and Denies urinary urgency Endo Denies fatigue and Denies palpitations Exam Const General: cooperative, healthy appearing, no acute distress, well developed and well groomed Nutritional Appearance: well nourished Orientation: alert, awake and oriented x3 HENMT Head: normal to inspection, normocephalic and atraumatic Ears: hearing grossly normal bilaterally and external ears normal General nose exam: external nose normal, nares normal, septum normal and no nasal discharge Face and sinus: normal facial exam Mouth: oral mucosae normal, lip normal, tongue normal and moist mucous membranes GI Inspection: Yes normal to inspection Palpation: soft, no hepatosplenomegaly and tender (Diffusely tender in all quadrants with rebound. No masses or guarding. ) Percussion: normal to percussion Auscultation: normal bowel sounds General: bladder normal to palpation External Female Exam: external appearance normal (No lesions or erythema.) and normal appearance of the urethra Urethra: normal appearance of the urethra Speculum Exam - Vagina: normal appearance of the vagina and normal vaginal discharge Speculum Exam - Cervix: normal appearance of the cervix Bimanual Exam- Vagina Uterus: normal bimanual exam, normal vaginal palpation, uterine size normal,bladder normal to palpation, uterine consistency normal, uterine mobility normal, uterine shape normal, cervical motion tenderness (Moderate CMT.) and uterus tender (Normal size, anteverted, moderately tender.) Bimanual Exam- Adnexa, other: normal adnexae, pelvic support normal and adnexal tenderness (Markedlytender bilaterally, questionable cystic mass in the left adnexa to midline.) Pelvic Support: normal Assessment Plan Assessment Plan (1) Pain in female pelvis: Code(s): R10.2 - Pelvic and perineal pain Plan - Marito Bosch MD: 1. Pelvic pain: Possibly due to hemorrhagic ovarian cyst. Rule out UTI. 2. Labs: UA/C S, Pap, GC/chlamydia. 3. Pelvic sonogramTV/AB. Orders: Orders: UA W/ CULTURE IF ABNORMAL 01/22/20 US Pelvic complete 01/22/20 Vaginitis DNA Probe Screen 01/22/20 GC Chlamydia CHIDI 01/22/20 (2) Hemorrhagic cysts of both ovaries: Status: Acute Code(s): N83.201 - Unspecified ovarian cyst, right side; N83.202 - Unspecified ovarian cyst, left side SNOMED Code(s): 388561760 Category: Medical Plan - Marito Bosch MD: 1. Cystic ovarian mass in adnexa, predominantly in left adnexa into the midline. 2. Rule out ovarian cyst. 3. Pelvic sonogramTV/AB. Orders Other Orders: Orders: PAP w HPV-Genotype if Positive 01/22/20 Z12.4 Follow Up: 1 Week Electronically Signed By: <Electronically signed by Marito Bosch MD> Date/Time Signed: 01/23/20 9062 Name Value Range Interpretation Code Description Data Jodie rce(s) Supporting Document(s) ID Date Data Source [id number] 11/05/2019 01:57:00 PM [facility] [address] [place] [address] [phone] NAME SEX PT STATUS ACCOUNT NUMBER ERYN NAVARRO LM REG REF [id number] ORDERING PHYSICIAN LOCATION MEDICAL RECORD NO. Davide López DO [id number] ATTENDING PHYSICIAN DATE OF DATE OF EXAM/TIME Zabrina Liu RPA 1990 11/05/191347 TYPE / EXAM US Pelvic complete REASON FOR EXAM pelvic pain/ IUD check COMPARISON: None FINDINGS: Transabdominal pelvic imaging is performed. The urinary bladder is grossly unremarkable and is usedas an acoustic window. The uterus measures 9.8 x 3.2 x 3.8 cm. There is an IUD present in the endometrial canal which appears to extend to the fundal region. Right ovary measures 2.8 x 1.7 x 2.1 cm. Left ovary measures 3.1 x 1.6 x 1.8 cm. Vascular flow is noted in both ovaries. No findings to suggest torsion. No adnexalmasses are seen. IMPRESSION: IUD appears to be in satisfactory position within the uterus. No adnexal masses or cul-de-sac fluid. Reported By Kajal Fernandez MD on 11/05/19 1357 Signed By Kajal Fernandez MD on 11/06/19 1437 Date Time CC: Kajal Fernandez MD; Zabrina Liu Techn: NOREM Trans Dt/Tm: Trans by: DT Prt Dt/Tm: 5625-7791: Total DLP = 0.00 mGy-cm 8775-7987: Total Radiation Dose = 0.0000 mSv Lifetime Dose: 0 mSv Name Value Range Interpretation Code Description Data Jodie rce(s) Supporting Document(s) ID Date Data Source [id number] 11/01/2019 02:10:00 PM [facility] Name Value Range Interpretation Code Description Data Jodie rce(s) Supporting Document(s) Hemoglobin A1c % 5.3 % 4.0-6.0 N [facility] The following ranges may be u sed for interpretation of results: HGBA1C degree of glucose control: Greater than 8%: Action Suggested * Less than 7%: Goal of Diabetic Therapy Less than 6%: NormalFactors such as duration of diabetes, adherence to therapyand the age of the patient should also be considered inassessing the degree of blood glucose control.* High risk of developing residential complications such asretinopathy, nephropathy, neuropathy, cardiopathy, etc. Some danger of hypoglycemic reaction in Type I diabetics.Some glucose intolerant individuals and "Sub Clinical"diabetics may demonstrate HGBA1C levels in this area. Glucose mean value [Moles/volume] in Blood Estimated f rom glycated hemoglobin 105 mg/dL [facility] An A1C of 7% - the goal of diabetic ther apy - is equivalentto an EAG of 154 mg/dl. ID Date Data Source [id number] 11/01/2019 02:17:00 PM [facility] Name Value Range Interpretation Code Description Data Jodie rce(s) Supporting Document(s) Follitropin [Units/volume] in Serum or Plasma 5.9 [iU]/L [facility] FSH REFERENCE RANGE IU/L Males Ages 13 - 70 yrs 1.4 - 18.1 Normally Menstruating Females Follicular Phase 2.5 - 10.2 Mid-Cycle Peak 3.4 - 33.4 Luteal Phase 1.5 - 9.1 Post-menopausal Females 23.0 - 116.3 Less Than 0.3 ID Date Data Source [id number] 11/02/2019 08:06:00 PM [facility] Name Value Range Interpretation Code Description Data Jodie rce(s) Supporting Document(s) Testosterone 41 ng/dL 8-48 [facility] Free Testosterone (Direct) 8.5 pg/mL 0.0-4.2 Above high normal [facility] Performed at: RN - [facility] [id number] [id number] Director: Shanell Kyle MD, Phone: [phone] ID Date Data Source 11/01/2019 02:17:00 PM [facility] Name Value Range Interpretation Code Description Data Jodie rce(s) Supporting Document(s) Lutropin [Units/volume] in Serum or Plasma 7.8 [iU]/L [facility] LH REFERENCE RANGE IU/L Males 20 - 70yrs 1.5 - 9.3 Greater than 70yrs 3.1 - 34.6 Normally Menstruating Females Follicular Phase 1.9 - 12.5 Mid-Cycle Peak 8.7 - 76.3 Luteal Phase 0.5 - 16.9 Postmenopausal Females 15.9 - 54.0 Less Than 0.1 - 1.5 Contraceptives 0.7 - 5.6 Children Less Than 0.1 - 6.0 ID Date Data Source [id number] 11/01/2019 02:17:00 PM [facility] Name Value Range Interpretation Code Description Data Jodie rce(s) Supporting Document(s) Prolactin [Mass/volume] in Serum or Plasma 4.3 ng/mL [facility] PROLACTIN REFERENCE RANGE ng/mL Males 2.1 - 17.7 Females Non 2.8 - 29.2 9.7 - 208.5 Postmenopausal 1.8 - 20.3 ID Date Data Source [id number] 11/01/2019 02:17:00 PM [facility] Name Value Range Interpretation Code Description Data Jodie rce(s) Supporting Document(s) Thyroxine (T4) free [Mass/volume] in Serum or Plasma 0.91 ng/dL 0.89- 1.76 N [facility] ID Date Data Source [id number] 11/01/2019 02:17:00 PM [facility] Name Value Range Interpretation Code Description Data Jodie rce(s) Supporting Document(s) Thyrotropin [Units/volume] in Serum or Plasma by Detec tion limit <= 0.005 mIU/L 0.72 u[iU]/mL 0.35-5.50 [facility] ID Date Data Source [id number] 11/02/2019 08:06:00 PM [facility] Name Value Range Interpretation Code Description Data Jodie rce(s) Supporting Document(s) Trichomonas vaginalis DNA [Presence] in Unspecified specimen by Probe and target amplification method Negative [facility] Performed at: RN - [facility] [place] [id number] Director: Shanell Kyle MD, Phone: [phone] Gardnerella vaginalis rRNA [Presence] in Genital specimen by DNA probe Negative [facility] [place] sp rRNA [Presence] in Vaginal fluid by DNA probe N egative [facility] ID Date Data Source [id number] 11/01/2019 12:01:00 PM [facility] Patient Name: ERYN NAVARRO LM : 1990 Sex: F Pt Unit #: [id number] Location:[facility] Provider: Visit Date/Time: 11/01/19 Primary Insurance: [facility] Secondary Insurance: Self Pay Intake Vital Signs 11/01/19 12:01 Current Height 5 ft 4 in Current Weight 220 lb 6 oz BMI 37.8 BP 122/80 Blood Pressure Location Lt brachial Position Sitting Respiration 18 Pulse 68 Pulse Strength Normal Pulse Source Pulse Oximeter Temp 99.3 F Temp Source Tympanic Pulse Oximetry (%) 99 Oxygen Delivery Method room air Intake Visit Reasons: Vaginal Discharge Nurse Note: Patient is here due to vaginal discharge and she has a history of PID. She is concerned she has pid now due to the lower abdominal pain. She also has a history of PCOS and endometriosis. Patient has had this for about 2 days. She also has lupus. Obtained a urine. no other questions orconcerns Sex Therapist Required: No Accompanied by: Self / Same as Patient Is patient in pain?: Yes (low abdominal discomfort) Pain scale (1-10): 3 Allergies Sulfa (Sulfonamide Antibiotics) Allergy (Severe, Verified 09/06/19 15:08) COULD NOT BREATH SEASONAL ALLERGIES Allergy (Unknown, Verified 09/06/19 15:08) Is last menstrual period known: No Post menopausal: No Patient : No Fall Risk History of falls: No Ambulatory Aid:: None Gait/Transferring:: Normal Medications:: No High Risk Medications HIV Testing Offer - ages 13-64 HIV testing Offer: No Requirement for HIV testing offer been met?: Patient reports past refusal SBIRT Annual Questionnaire Are you currently in recovery for alcohol or substance use?: No How many times in the past year have you had 4 or more drinks in a day?: None How many times in the past year have you used a recreati onal drug or used a prescription medication for nonmedical reasons?: None Do you need a note to return Do you need a note to return to daycare/school/sports/work: No PFSH Medical History ISRAEL positive (Inactive) Carpal tunnel syndrome on right (Chronic 04/04/17) endometriosis (Inactive) (Inactive) Migraine with aura (Chronic) PID (Resolved) Polycystic ovaries (Chronic) Seasonal allergic rhinitis (Chronic) SLE (systemic lupus erythematosus) (Chronic) Vertigo (Resolved) Vitamin D deficiency (Chronic) Surgical History Cholecystectomy (Resolved 02/13/18) History of - surgery (Resolved) History of - surgery (Resolved) planters wart removal (Resolved) Status post tonsillectomy (Resolved) Family History Mother Systemic lupus erythematosus Depression Transient ischemic attack Father Diabetes mellitus, type 2 Brother No problems noted. 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 current occupational exposures/hazards: No Hx Recent Travel (where): No well-ba lanced diet: daily high-fat food intake: 0-1 times daily daily servings fruits/ve-4 daily servings of milk/calcium: 2-4 eating out: rarely or never reads food labels: usually or always during the past year weight has: increased > 10 lbs alcohol intake: current alcohol intake frequency: holidays/special occasions only substance use type: does not use seatbelt use: always helmet use: Yes drive intox or ride w/ intox 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 Hx of Lupus, PCOS, Endometriosis., Ectopic Onset: 10/25/19 Location: Lower abdomen Review of Systems Const Reports as per HPI and Reports system reviewed and no additional complaints, except as documented Reports system reviewed and no additional complaints, except as documented, Reports as per HPI and Reports pelvic pain Exam Const General: cooperative, healthy appearing, comfortable, no acute distress, well developed, well groomed and well hydrated Nutritional Appearance: well nourished and obese Orientation: alert, awake, oriented x3, oriented to person, oriented to place and oriented to time General: bladder normal to inspection and bladder normal to palpation External Female Exam: external appearance normal and normal appearance of the urethra Urethra: normal appearance of the urethra and normal palpation Speculum Exam - Vagina: normal appearance of the vagina and normal vaginal discharge Speculum Exam - Cervix: normal appearance of the cervix (No IUD strings seen.), closed cervix and cervical tenderness Bimanual Exam- Vagina Uterus: uterine size normal, bladder normal to palpation, cervical tenderness and uterus tender Bimanual Exam- Adnexa, other: adnexal tenderness bilaterally Assessment Plan Assessment Plan (1) Vaginal discharge: Code(s): N89.8 - Other specified noninflammatory disorders of vagina Orders: Orders: Vaginitis DNA Probe Screen Today Additional Comments Additional Comments: Pelvic pain in female with the history of endometriosis, ectopic tubal resection, Lupus, PCOS 1. Augmentin 875 mg PO 1 tab BID for 7 days 2. Metronidazole 500 mg PO BID for 7 days Orders Other Medications: New: metronidazole 500 mg PO BID 7 days 14 tabs 0RF amoxicillin-pot clavulanate 875-125 mg (Augmentin) 1 tab PO BID 14 tabs 0RF Other Orders: Orders: UA W/ CULTURE IF ABNORMAL Today R30.9 LH -LUTINIZING HORMONE Today R10.2 FSH Today R10.2 PROLACTIN Today R10.2 Testosterone, Free(Direct)/Tot Today R10.2 US Pelvic complete 2 Weeks R10.2, T83.32XA HGBA1C + EAG Today R10.2 Follow Up: 2 Weeks Electronically Signed By: <Electronically signed by Davide López DO> Date/Time Signed: 11/01/19 1246 Name Value Range Interpretation Code Description Data Jodie rce(s) Supporting Document(s) ID Date Data Source [id number] 11/01/2019 01:41:00 PM EST [facility] Method of Collection:: Clean Catch Name Value Range Interpretation Code Description Data Jodie rce(s) Supporting Document(s) Color of Urine [facility] Appearance of Urine CLEAR [facility] pH of Urine by Test strip 7.0 5-8 [facility] Specific gravity of Urine by Refractometry 1.006 1.005-1.030 [facility] Leukocyte esterase [Presence] in Urine by Test strip NEGAT JADYN [facility] Nitrite [Presence] in Urine by Test strip NEGATIVE [facility] Protein [Presence] in Urine by Test strip NEGATIVE [facility] Glucose [Mass/volume] in Urine by Automated test strip NEGATIVE NEG ATIVE [facility] Ketones [Presence] in Urine by Test strip NEGATIVE [facility] Urobilinogen [Presence] in Urine 0.2-1 EU/dl [facility] Bilirubin.total [Presence] in Urine by Automated test strip NEGATIVE [facility] Erythrocytes [#/volume] in Urine by Test strip NEGATIVE NEGATIVE [facility] URINE MICROSCOPIC? (CIF) NO [facility] Procedure Social History Code Duration Value Status Description Data Source(s ) Smoking 12/09/2020 12:00:00 AM EST Never Smoker completed Never S moker eCW1 (Formerly [facility], 1928[facility]1983) Alcohol intake 12/04/2020 12:00:00 AM EST Yes completed [facility] Smoking 12/04/2020 12:00:00 AM EST Never smoker completed Never s [facility] 11/17/2020 02:46:00 PM EST No completed No [facility] 11/17/2020 02:46:00 PM EST No completed No [facility] 11/17/2020 02:46:00 PM EST Never smoker completed Never s [facility] Smoking 11/17/2020 02:46:00 PM EST Never smoker completed Never s [facility] Alcohol intake 11/15/2020 12:00:00 AM EST Yes completed [facility] Smoking 11/15/2020 12:00:00 AM EST Never smoker completed Never s [facility] Smoking 10/24/2020 12:00:00 AM EST Patient has never smoked co mpleted Patient has never smoked [facility] ([facility]) Smoking 10/01/2020 12:00:00 AM EST Never Smoker completed Never S moker eCW1 (Formerly [facility], 1928–1983) Smoking 10/01/2020 12:00:00 AM EST Never Smoker completed Never S moker eCW1 (Formerly [facility], 1928[facility]1983) Alcohol intake 09/30/2020 12:00:00 AM EST Current non-d petra of alcohol (finding) completed Current non-drinker of alcohol (finding) [facility] Tobacco use and exposure 09/30/2020 12:00:00 AM EST Never used co mpleted Never used [facility] Smoking 09/30/2020 12:00:00 AM EST Never smoker completed Never s [facility] Smoking 09/11/2020 12:00:00 AM EDT Never Smoker completed Never S moker eCW1 (Formerly [facility], [facility]1983) Smoking 09/11/2020 12:00:00 AM EDT Never Smoker completed Never S moker eCW1 (Formerly [facility], [facility]) Smoking 09/03/2020 12:00:00 AM EDT Never Smoker completed Never S moker eCW1 (Formerly [facility], [facility]) 04/02/2020 11:27:00 AM EDT No completed [facility] 04/02/2020 11:27:00 AM EDT No completed No [facility] 03/19/2020 04:36:00 PM EDT Never smoker completed Never s [facility] Smoking 03/19/2020 04:36:00 PM EDT Never smoker completed Never s [facility] 03/19/2020 04:36:00 PM EDT Never smoker completed Never s [facility] Smoking 03/19/2020 04:36:00 PM EDT Never smoker completed Never s [facility] 03/19/2020 04:36:00 PM EDT Never smoker completed Never s [facility] Smoking 03/19/2020 04:36:00 PM EDT Never smoker completed [facility] 03/19/2020 04:36:00 PM EDT Never smoker completed [facility] Smoking 03/19/2020 04:36:00 PM EDT Never smoker completed [facility] 03/07/2020 10:25:00 AM EDT No completed [facility] 03/07/2020 10:25:00 AM EDT No completed [facility] Vital Signs ID Date Data Source UNK Name Value Range Interpretation Code Description Data Source(s) Diastolic blood pressure 72 mm[Hg] 72 mm[Hg] eCW1 (Formerly [facility], 1928–1983) Systolic blood pressure 128 mm[Hg] 128 mm[Hg] e CW1 (Formerly [facility], 1928–1983) Respiratory rate 18 /min 18 /min eCW1 ([facility]) Heart rate 71 /min 71 /min eCW1 ([facility]) Body mass index (BMI) [Ratio] 38.03 kg/m2 38.03 kg/m2 eCW1 (Formerly [facility], 1928–1983) Body height 64 [in_i] 64 [in_i] eCW1 ([facility]) Body weight 221.6 [lb_av] 221.6 [lb_av] eCW1 ([facility]) Body mass index (BMI) [Ratio] 37.08 kg/m2 37.08 kg/m2 [facility] Body weight 97.977 kg 97.977 kg [facility] Body height 162.6 cm 162.6 cm [facility] Oxygen saturation in Arterial blood by Pulse oximetry 97 % 97 % [facility] Body mass index (BMI) [Ratio] 38.11 kg/m2 38.11 kg/m2 [facility] Body weight 100.699 kg 100.699 kg [facility] Body height 162.6 cm 162.6 cm [facility] Heart rate 72 /min 72 /min [facility] Diastolic blood pressure 90 mm[Hg] 90 mm[Hg] [facility] Systolic blood pressure 130 mm[Hg] 130 mm[Hg] [facility] Diastolic blood pressure--sitting 93 mm[Hg] 93 mm[Hg] MEDENT ([facility]) [place], large cuff/Ra Systolic blood pressure--sitting 130 mm[Hg] 130 mm[Hg] MEDENT ([facility]) [place], large cuff/Ra Heart rate 70 /min 70 /min [facility]ENT ([facility] Body mass index (BMI) [Ratio] 37.4 kg/m2 37.4 k g/m2 MEDENT ([facility]) Body height 64 [in_i] 64 [in_i] MEDENT ([facility] 5'4" Body weight 218.00 [lb_av] 218.00 [lb_av] MEDEN T ([facility]) Diastolic blood pressure 70 mm[Hg] 70 mm[Hg] eCW1 (Formerly [facility], 1928–1983) Systolic blood pressure 132 mm[Hg] 132 mm[Hg] e CW1 (Formerly [facility], 1928–1983) Body temperature 97.8 [degF] 97.8 [degF] eCW1 ( [facility]ly [facility], 1928–1983) Respiratory rate 18 /min 18 /min eCW1 ([facility]) Heart rate 97 /min 97 /min eCW1 ([facility]) Body mass index (BMI) [Ratio] 37.00 kg/m2 37.00 kg/m2 eCW1 (Formerly [facility], 1928–1983) Body height 64 [in_i] 64 [in_i] eCW1 ([facility]) Body weight 97.7 kg 97.7 kg eCW1 ([facility]) Body weight 215.6 [lb_av] 215.6 [lb_av] eCW1 ([facility]) Diastolic blood pressure 78 mm[Hg] 78 mm[Hg] eCW1 (Formerly [facility], 1928–1983) Systolic blood pressure 132 mm[Hg] 132 mm[Hg] e CW1 (Formerly [facility], 1928–1983) Body mass index (BMI) [Ratio] 37.24 kg/m2 37.24 kg/m2 eCW1 ([facility]ly [facility], 1928–1983) Body height 64 [in_i] 64 [in_i] eCW1 ([facility]) Body weight 217 [lb_av] 217 [lb_av] eCW1 ([facility]) Diastolic blood pressure 80 mm[Hg] 80 mm[Hg] eCW1 (Formerly [facility], 1928–1983) Systolic blood pressure 130 mm[Hg] 130 mm[Hg] e CW1 (Formerly [facility], 1928–1983) Body mass index (BMI) [Ratio] 36.93 kg/m2 36.93 kg/m2 eCW1 ([facility]ly [facility], 1928–1983) Body height 64 [in_i] 64 [in_i] eCW1 ([facility]) Body weight 97.61 kg 97.61 kg eCW1 ([facility]) Body weight 215.2 [lb_av] 215.2 [lb_av] eCW1 ([facility]) Diastolic blood pressure 78 mm[Hg] 78 mm[Hg] eCW1 (Formerly [facility], 1928–1983) Systolic blood pressure 130 mm[Hg] 130 mm[Hg] e CW1 (Formerly [facility], 1928–1983) Body mass index (BMI) [Ratio] 36.9 kg/m2 36.9 k g/m2 eCW1 (Formerly [facility], 1928–1983) Body height 64 [in_i] 64 [in_i] eCW1 ([facility]) Body weight 215 [lb_av] 215 [lb_av] eCW1 ([facility]) Diastolic blood pressure 88 mm[Hg] 88 mm[Hg] ANA[facility]) Systolic blood pressure 136 mm[Hg] 136 mm[Hg] G REENWAY ([facility]) Oxygen saturation in Arterial blood by Pulse oximetry 98 % 98 % [facility] ([facility]) Body temperature 97.9 [degF] 97.9 [degF] [facility] ([facility]) Respiratory rate 18 /min 18 /min A[facility] ([facility]) Heart rate rhythm 1 1 [place] Y ([facility]) Heart rate 75 /min 75 /min ANABEL ([facility]) ID Date Data Source [id number] 10/07/2020 10:03:57 AM [facility] Name Value Range Interpretation Code Description Data Source(s) WEIGHT RECORDED 218 lb 218 lb [facility] Body height Measured 64.02 in 64.02 in [facility] Patient Treatment Plan of Care Planned Activity Planned Date Details Description Data Source (s) Aspirin 81 MG Delayed Release Oral Tablet 10/23/2020 12:00:00 AM [facility] Amoxicillin 500 MG Oral Capsule 12/29/2019 12:00:00 AM [facility] Fluconazole 150 MG Oral Tablet [Diflucan] 12/29/2019 12:00:[address] [facility] Cyclobenzaprine hydrochloride 5 MG Oral Tablet 10/03/2019 12:00:00 AM [facility] Fluconazole 150 MG Oral Tablet [Diflucan] 09/25/2019 12:00:[address] [facility] Amoxicillin 500 MG Oral Capsule 09/25/2019 12:00:00 AM [facility]) Levonorgestrel 0.070063 MG/HR Drug Implant [facility] Levothyroxine Sodium 0.025 MG Oral Tablet [facility]
[2020-12-19 00:09] LABS: ALT/SGPT 43 U/L (12-78); BILIRUBIN,DIRECT < 0.1 MG/DL (0.0-0.2); BILIRUBIN,TOTAL 0.3 MG/DL (0.2-1.0); BLOOD UREA NITROGEN 9 MG/DL (7-18); CALCIUM LEVEL 9.8 MG/DL (8.5-10.1); CARBON DIOXIDE LEVEL 28 MEQ/L (21-32); CHLORIDE LEVEL 105 MEQ/L (98-107); CREATININE FOR GFR 0.79 MG/DL (0.55-1.30); GLOMERULAR FILTRATION RATE > 60.0 (>60); GLUCOSE, FASTING 87 MG/DL (70-100); LIPASE 111 U/L (73-393); SODIUM LEVEL 141 MEQ/L (136-145); TOTAL PROTEIN 7.5 GM/DL (6.4-8.2)
[2020-12-19 00:17] LABS: BASO # 0.1 10^3/uL (0.0-0.2); BASO % 0.6 % (0.0-1.0); EOS # 0.5 10^3/uL (0.0-0.5); EOS % 4.1 % (0.0-3.0); HEMATOCRIT 41.9 % (36.0-47.0); HEMOGLOBIN 13.5 g/dl (12.0-15.5); LYMPH # 3.7 10^3/uL (1.5-5.0); MEAN CORPUSCULAR HEMOGLOBIN 29.9 pg (27.0-33.0); MEAN CORPUSCULAR HGB CONC 32.2 g/dl (32.0-36.5); MEAN CORPUSCULAR VOLUME 92.9 fl (80.0-96.0); MONO # 0.9 10^3/uL (0.0-0.8); MONO % 7.9 % (0.0-5.0); NEUTROPHILS # 6.1 10^3/uL (1.5-8.5); PLATELET COUNT, AUTOMATED 344 10^3/uL (150-450); RED BLOOD COUNT 4.51 10^6/uL (4.00-5.40); WHITE BLOOD COUNT 11.3 10^3/uL (4.0-10.0)
--- OUTSIDE RECORDS SUMMARY | 2020-12-19 02:43 | CCD | Continuity of Care Document ---
Author Author Eryn BARRERA Organization Unknown Address [address] [place] [address] Phone [phone] Care Team Providers Care Plugger Name Role Phone Eryn Martinez N.P. [phone] Zabrina Liu AUTM Problems Description No Information Available Social History [...] Date Location Provider Dx Diagnosis Office Visit 12/09/2020 1:30p Main office - [place] Emilee Parker M.D. R42 Dizziness and giddiness G43.809 Other migraine, not intracta ble, without status migrainosus I95.1 Orthostatic hypotension H53.8 Other visual disturbances Q25.0 Patent ductus arteriosus Assessments Date Code Description Provider 12/09/2020 R42 Dizziness and giddiness Emilee hall M.D. 12/09/2020 G43.809 Other migraine, not intractable, without status migrainosus Emilee Parker M.D. 12/09/2020 I95.1 Orthostatic hypotension Emilee hall M.D. 12/09/2020 H53.8 Other visual disturbances Emilee Parker M.D. 12/09/2020 Q25.0 Patent ductus arteriosus Emilee Parker M.D. Plan of Treatment Future Appointment(s):* 02/06/2021 8:00 am - Emilee Parker M.D. at Main office - [place] Functional Status Description No Information Available Mental Status Description No Information Available Referrals Refer to Reason for Referral Status Appt Date Created
--- OUTSIDE RECORDS SUMMARY | 2020-12-19 02:45 | CCD ---
Author Author [facility] Organization [facility] Address Unknown Phone Unavailable Care Team Providers Care Transmission Inspector Name Role Phone Granger II, Luis Miguel [...] Naidu Unavailable Unavailable Granger II, A Nate aNidu Unavailable Unavailable Granger II, A Nate Naidu [...] COLLINS SANCHEZ MD Unavailable Unavailable Simon MARTINEZ GENERAL STORE MANAGER-HEALTH PLAN ADVISOR-C Unavailable Unava ilable KOPIDLANSKYSimon GENERAL STORE MANAGER-HEALTH PLAN ADVISOR-C Unavailable Unava ilable KOPIDLRIKKIKYSimon GENERAL STORE MANAGER-HEALTH PLAN ADVISOR-C Unavailable Unava ilable KOPIDLANSKYSimon GENERAL STORE MANAGER-HEALTH PLAN ADVISOR-C Unavailable Unava ilable KOPIDLANSKYSimon GENERAL STORE MANAGER-HEALTH PLAN ADVISOR-C Unavailable Unava ilable KOPIDLANSKYSimon GENERAL STORE MANAGER-HEALTH PLAN ADVISOR-C Unavailable Unava ilable KOPIDLANSKYSimon GENERAL STORE MANAGER-HEALTH PLAN ADVISOR-C Unavailable Unava ilable KOPIDLRIKKIKYSimonIE GENERAL STORE MANAGER-HEALTH PLAN ADVISOR-C Unavailable Unava ilable KOPIDLANSKY, Simon HOLLAND GENERAL STORE MANAGER-HEALTH PLAN ADVISOR-C Unavailable Unava ilable KOPIDLANSKY, Simon HOLLAND GENERAL STORE MANAGER-HEALTH PLAN ADVISOR-C Unavailable Unava ilable KOPIDLANSKY, Simon HOLLAND GENERAL STORE MANAGER-HEALTH PLAN ADVISOR-C Unavailable Unava ilable KOPIDLANSKY, Simon HOLLAND APRN-HEALTH PLAN ADVISOR-C Unavailable Unava ilable KOPIDLANSKY, Simon HOLLAND GENERAL STORE MANAGER-HEALTH PLAN ADVISOR-C Unavailable Unava ilable KOPIDLANSKY, Simon HOLLAND GENERAL STORE MANAGER-HEALTH PLAN ADVISOR-C Unavailable Unava ilable KOPIDLANSKY, Simon HOLLAND GENERAL STORE MANAGER-HEALTH PLAN ADVISOR-C Unavailable Unava ilable KOPIDLANSKY, Simon HOLLAND APRN-HEALTH PLAN ADVISOR-C Unavailable Unava ilable KOPIDLANSKY, Simon HOLLAND GENERAL STORE MANAGER-HEALTH PLAN ADVISOR-C Unavailable Unava ilable KOPIDLANSKY, Simon HOLLAND APRN-HEALTH PLAN ADVISOR-C Unavailable Unava ilable KOPIDLANSKY, Simon HOLLAND GENERAL STORE MANAGER-HEALTH PLAN ADVISOR-C Unavailable Unava ilable KOPIDLANSKY, Simon HOLLAND GENERAL STORE MANAGER-HEALTH PLAN ADVISOR-C Unavailable Unava ilable KOPIDLANSKY, Simon HOLLAND GENERAL STORE MANAGER-HEALTH PLAN ADVISOR-C Unavailable Unava ilable KOPIDLANSKY, Simon HOLLAND GENERAL STORE MANAGER-HEALTH PLAN ADVISOR-C Unavailable Unava ilable Granger II, Luis Miguel [...] Unavailable Shashank, Taryn MD Unavailable Unavailable Shashank, Atryn MD Unavailable Unavailable Shashank, Taryn MD Unavailable [...] Unavailable Alexa, A Zabrina PA Unavailable Unavailable Aelxa, A Zabrina PA Unavailable Unavailable Alexa, A [...] Granger II, A Nate Naidu Unavailable Unavailable Grangre II, A Nate Naidu Unavailable Unavailable Granger [...] is protected by Article 27-F of the [facility] Public Health law. If you continue you may have access to information: Regarding HIV / AIDS; Provided by facilities licensed or operated by the [facility] Office of Mental Health; or Provided by the [facility] Office for People With Developmental Disabilities. If such information is present, then the following [facility] mandated warning applies: This information has been [...] law may result in a fine or senior care sentence or both. A general authorization for the release of medical or other information is NOT sufficient authorization for further disc losure. Allergies and Adverse Reactions Type Description Substance Reaction Status Data Source(s ) Propensity to adverse reactions NICKEL nickel sulfate Active [facility] Propensity to adverse reactions adhesives Propensity to adverse reactions rash Active eCW1 (Replaced By [facility]) Propensity to adverse reactions adhesives Propensity to adverse reactions rash Active eCW (Replaced By [facility]) Propensity to adverse reactions adhesives Propensity to adverse reactions rash Active [facility] (Replaced By [facility]) Propensity to adverse reactions adhesives Propensity to ad verse reactions Unknown Active eCW ([facility]) Propensity to adverse reactions adhesives Propensity to ad verse reactions Unknown Active eCW ([facility]) Propensity to adverse reactions adhesives Propensity to ad verse reactions Unknown Active eCW ([facility]) Drug allergy Sulfa (Sulfonamide Antibiotics) Sulfa (Sulfonami de Antibiotics) [facility] BREATH [facility] SEASONAL ALLERGIES SEASONAL ALLERGIES [facility] Family History Family Member Name Family Member Gender Family Member Status Date o f Status Description Data Source(s) Unknown Condition [facility] Unknown Condition [facility] Unknown Condition [facility] Unknown Condition [facility] Unknown Condition [facility] Unknown Condition [facility] Unknown Condition [facility] Unknown Condition [facility] Condition [facility] Unknown Condition [facility] Unknown Condition [facility] Unknown Condition [facility] Unknown Condition [facility] Unknown Condition [facility] Unknown Condition [facility] Unknown Condition [facility] Unknown Condition [facility] Unknown Condition [facility] Unknown Condition [facility] Unknown Condition [facility] Unknown Condition [facility] Unknown Condition [facility] Unknown Condition [facility] Unknown Condition [facility] Unknown Condition [facility] Unknown [facility] Unknown Condition [facility] Unknown Condition [facility] Unknown Condition [facility] Unknown Condition [facility] Unknown Condition [facility] Unknown Condition [facility] Encounters Encounter Providers Location Date Indications Data Source(s ) Outpatient Attender: SABINE REED MD 01/12/2021 12:00:00 [facility] Office Visit Attender: MORGAN DOBBS MD Main office - [facility] 12/09/2020 12:30:00 PM EST MEDENT ([facility], ) Outpatient [address] [place] [address], [facility] [address] 12/09/2020 12:00:00 AM EST eCW1 ([facility]) Outpatient Attender: BASIA MULLEN MD [id number] 12/04/2020 12:00:00 AM EST [facility] Outpatient Attender: Chelo Chambers MDAdmitter: Chelo wheeler MD [email or web address] 11/28/2020 08:34:22 AM [facility] Outpatient Attender: ERYN MICHELLE 11/25/2020 07:30:00 AM EST D73.5,E06.3 [facility] D73.5,E06.3 Outpatient Attender: ERYN FISCHER CReferrer: Zabrina CAREY 11/19/2020 08:20:00 AM EST - 11/19/2020 09:50:[address] [facility] Outpatient Attender: BASIA MULLEN MD [email or web address] [id number] 12:00:00 AM EST - 11/12/2020 04:21:28 PM EST [facility] Outpatient Attender: LUKE CARREON MD Main Office 10/24/2020 07:45:00 AM EST MED[facility] ([facility]) Outpatient Attender: SABINE REED MD [id number] 10/08/2020 12:0 0:00 AM EST Systemic lupus erythematosus, unspecified [facility] Systemic lupus erythematosus, unspecifie d Outpatient Attender: SABINE REED MD [id number] 10/01/2020 12:0 0:00 AM EST Systemic lupus erythematosus, unspecified [facility] Systemic lupus erythematosus, unspecifie d Outpatient [address] [facility] [id number] 10/01/2020 12:00:00 AM EST [facility]CW1 ([facility]) [facility] [address] [facility] [address] [address] 09/12/2020 12:00:00 AM EDT eCW1 ([facility]) Postop visit [address] [facility] [address] [address] 09/03/2020 12:00:00 AM EDT eCW1 ([facility]) Unknown [address] [facility] [address] [address] 09/02/2020 12:00:00 AM EDT eCW1 ([facility]) Outpatient Attender: Taryn Encarnacion MDReferrer: Nate Olmos rd II 08/20/2020 12:00:00 AM T [facility] Postop visit [address] [facility] [address] [address] 08/15/2020 12:00:00 AM EDT eCW1 ([facility]) Preadmit Attender: Nate Granger II 07/02/2020 0 7:30:00 AM EDT R10.2,N80.9/DIAGNOSTIC LAPAROSCOPY [id number] [facility] R10.2,N80.9/DIAGNOSTIC LAPAROSCOPY [id number] Outpatient Attender: Nate Granger IIReferrer: Zabrina CAREY 06/18/2020 11:48:00 AM EDT - 06/18/2020 12:57:00 PM EDT [facility] Outpatient Attender: Nate Granger II 05/30/2020 0 1:16:00 PM EDT CHANGE IN BOWEL HABITS,R10.2,R19.4 [facility] CHANGE IN BOWEL HABITS,R10.2,R19.4 Outpatient Attender: Nate Granger IIReferrer: Zabrina CAREY 05/28/2020 11:05:00 AM EDT - 05/28/2020 11:51:00 AM EDT [facility] Outpatient Attender: Nate Granger II 04/23/2020 1 1:58:[address] [facility] OVARIAN CYST Outpatient Attender: Nate Granger II 04/02/2020 11:34:[address] [facility] R10.2 Outpatient Attender: Nate Granger IIReferrer: Zabrina CAREY 04/02/2020 10:02:00 AM EDT - 04/02/2020 11:29:00 AM EDT [facility] Emergency Attender: Emiliano Delarosa MD 04/2020 04:29:00 PM EDT - 03/19/2020 06:39:00 PM EDT [facility] Patient discharged. Outpatient Attender: Marito Bosch MD 03/07/2020 12:05:[address] [facility] Outpatient Attender: Marito Bosch MDReferrer: Zabrina CAREY 03/07/2020 09:56:00 AM EDT - 03/07/2020 10:27:00 AM EDT [facility] Outpatient Attender: Marito Bosch MD 02/01/2020 11:30:[address] [facility] Z30.432 Outpatient Attender: Marito Bosch MDReferrer: Zabrina CAREY 02/01/2020 10:55:00 AM EDT - 02/01/2020 11:51:00 AM EDT [facility] Outpatient Attender: Zev Figueroa DOReferrer: Zabrina CAREY 01/29/2020 02:03:00 PM EDT - 01/29/2020 02:42:00 PM EDT [facility] Outpatient Attender: Marito Bosch MD 01/22/2020 0 3:43:00 PM EDT PELVIC PAIN,R10.2,Z12.4 [facility] PELVIC PAIN,R10.2,Z12.4 Outpatient Attender: Marito Bosch MDReferrer: Zabrina CAREY 01/22/2020 02:30:00 PM EDT - 01/22/2020 03:38:00 PM EDT [facility] Outpatient<td ID="[email or web address]">urgent visit</td><td>Abner Burger PA-C</td><td>[facility]</td><td>12/29/2019</td><td><content ID="[email or web address]">[employer]</content></td> Attender: Abner CAREY [facility] 12/29/2019 11:35:00 AM EST - 12/29/2019 11:59:00 PM EST [employer] [place] ([facility] CLINIC [id number] 12/27/2019 06:46:29 AM EST [facility] Attender: COLLINS SANCHEZ MDReferrer: Nate Olmos rd II [id number] 12/24/2019 12:00:00 AM EST [facility] Outpatient Attender: Nate Granger II 11/05/2019 1 2:24:00 [address] [facility] PELVIC PAIN Outpatient Attender: Davide López DO 11/01/2019 12:49:00 PM EST R30.9,R10.2,N89.8,R79.89 [facility] R30.9,R10.2,N89.8,R79.89 Outpatient Attender: Davide Burriserrer: Zabrina CAREY 11/01/2019 11:39:00 AM EST - 11/01/2019 12:38:00 PM EST [facility] Immunizations Vaccine Date Status Description Data Source(s) Pneumococcal conjugate PCV 13 05/07/2020 12:00:00 AM EDT complet ed pneumococcal conjugate PCV 13 [facility] Medications Medication Brand Name Start Date Product Form Dose Route Admi nistrative Instructions Pharmacy Instructions Status Indications Reaction Description Data Source(s) topiramate 25 MG Oral Tablet [Topamax] Topamax 12/09/2020 12:00:00 A M EST active [facility] ([facility]) 25 mg 12/09/2020 12:00:00 AM [...] 12/09/2020 12:00:00 AM EST ORAL active [facility] ([facility] Aspirin 81 MG Chewable Tablet Aspirin ([facility]) 81 mg tablet,chewable Aspirin ([facility] Aspir[facility]) 81 mg tablet,chewable 11/19/2020 08:35:43 AM EST 81 MG active [facility] 150 mg 11/19/2020 12:00:00 AM EST [...] Oral active Take by mouth [facility] Aspirin 81 MG Delayed Release Oral Tablet Aspirin 10/23/2020 1 2:00:00 AM EST ORAL active [facility] ([facility] Levothyroxine Sodium 0.025 MG Oral Tablet Levothyroxine Sodi um 10/23/2020 12:00:00 AM EST ORAL active M EDENT ([facility]) 800 mg 07/28/2020 12:00:00 AM EDT tablet 30 TAKE ONE TABLET BY MOUTH THREE TIMES A DAY FOR PAIN TAKE ONE TABLET BY MOUTH THREE TIMES A DAY FOR PAIN SO LD: 07/29/2020 [facility] 100 mg 07/28/2020 12:00:00 AM EDT capsule 14 TAKE ONE CAPSULE BY MOUTH EVERY 12 HOURS TAKE ONE CAPSULE BY MOUTH EVERY 12 HOURS SOLD: 07/29/2020 [facility] 5-325 mg 07/28/2020 12:00:00 AM EDT tablet 20 TAKE ONE TABLET BY MOUTH EVERY 4 HOURS NEEDED FOR MILD/MODERATE PAIN (SCORE OF 1-7) MAXIMUM DAILY DOSE = SIX TABLETS TAKE ONE TABLET BY MOUTH EVERY 4 HOURS A S NEEDED FOR MILD/MODERATE PAIN (SCORE OF 1-7) MAXIMUM DAILY DOSE = SIX TABLETS SOLD: 07/29/2020 [facility] Phentermine Hydrochloride 37.5 MG Oral Tablet Phentermine 06/18/2020 01:26:11 PM EDT 37.5 MG [facility] Phentermine Hydrochloride 37.5 MG Oral Tablet Phentermine 06/18/2020 01:04:10 PM EDT 37.5 MG [facility] 37.5 mg 06/18/2020 12:00:00 AM EDT tablet 30 TAKE ONE TABLET BY MOUTH EVERY DAY FOR WEIGHT MANAGEMENT MAXIMUM DAILY DOSE = ONE TABLET TAKE ONE TABLET BY MOUTH EVERY DAY FOR WEIGHT MANAGEMENT MAXIMUM DAILY DOSE = ONE TABLET SOLD: 06/18/2020 [facility] 37.5 mg 06/18/2020 12:00:00 AM EDT [...] 12:59:19 PM E DT 25 MCG active [facility] Levothyroxine Sodium 0.025 MG Oral Table t Levothyroxine (Synthroid) 25 mcg tablet Levothyroxine (Synthroid) 25 mcg tablet 04/02/2020 12:59:19 PM E DT 25 MCG active [facility] Levothyroxine Sodium 0.025 MG Oral Table t Levothyroxine (Synthroid) 25 mcg tablet Levothyroxine (Synthroid) 25 mcg tablet 04/02/2020 12:59:19 PM E DT 25 MCG completed [facility] Cimetidine 800 MG Oral Tablet Cimetidine 04/02/2020 12:58:39 PM EDT 800 MG completed [facility] Cimetidine 800 MG Oral Tablet Cimetidine 04/02/2020 12:58:39 PM EDT 800 MG completed [facility] Cimetidine 800 MG Oral Tablet Cimetidine 04/02/2020 12:58:39 PM EDT 800 MG completed [facility] 24 HR Metformin hydrochloride 750 MG Extended Release Oral T ablet Metformin 04/02/2020 12:57:59 PM EDT [address] [facility] 24 HR Metformin hydrochloride 750 MG Extended Release Oral T ablet Metformin 04/02/2020 12:57:59 PM EDT [address] [facility] 24 HR Metformin hydrochloride 750 MG Extended Release Oral T ablet Metformin 04/02/2020 12:57:59 PM EDT [address] [facility] 25 mcg 04/02/2020 12:00:00 AM EDT [...] 03/07/2020 10:46:43 AM EDT 150 MG completed [facility] Fluconazole 150 MG Oral Tablet Fluconazole 03/07/2020 10:46:43 AM EDT 150 MG completed [facility] Fluconazole 150 MG Oral Tablet Fluconazole (Diflucan) 150 mg tablet Fluconazole (Diflucan) 150 mg tablet 03/07/2020 10:46:43 AM EDT 150 MG completed [facility] Fluconazole 150 MG Oral Tablet Fluconazole (Diflucan) 150 mg tablet Fluconazole (Diflucan) 150 mg tablet 03/07/2020 10:46:43 AM EDT 150 MG completed [facility] Fluconazole 150 MG Oral Tablet Fluconazole 03/07/2020 10:46:43 AM EDT 150 MG completed [facility] Metronidazole 500 MG Oral Tablet Metronidazole 03/07/2020 10:46:08 AM EDT 500 MG completed [facility] Metronidazole 500 MG Oral Tablet Metronidazole (Flagyl ) 500 mg tablet Metronidazole (Flagyl) 500 mg tablet 03/07/2020 10:46:08 AM EDT 500 MG completed [facility] Metronidazole 500 MG Oral Tablet Metronidazole (Flagyl ) 500 mg tablet Metronidazole (Flagyl) 500 mg tablet 03/07/2020 10:46:08 AM EDT 500 MG completed [facility] Metronidazole 500 MG Oral Tablet Metronidazole (Flagyl ) 500 mg tablet Metronidazole (Flagyl) 500 mg tablet 03/07/2020 10:46:08 AM EDT 500 MG completed [facility] Metronidazole 500 MG Oral Tablet Metronidazole 03/07/2020 10:46:08 AM EDT 500 MG completed [facility] doxycycline hyclate 100 MG Oral Capsule Doxycycline Hyclate Doxycycline Hyclate 03/07/2020 10:45:22 AM EDT [address] [facility] doxycycline hyclate 100 MG Oral Capsule Doxycycline Hyclate Doxycycline Hyclate 03/07/2020 10:45:22 AM EDT [address] [facility] doxycycline hyclate 100 MG Oral Capsule Doxycycline Hyclate Doxycycline Hyclate 03/07/2020 10:45:22 AM EDT [address] [facility] doxycycline hyclate 100 MG Oral Capsule Doxycycline Hyclate Doxycycline Hyclate 03/07/2020 10:45:22 AM EDT [address] [facility] doxycycline hyclate 100 MG Oral Capsule Doxycycline Hyclate Doxycycline Hyclate 03/07/2020 10:45:22 AM EDT 100 MG [facility] 500 mg 03/07/2020 12:00:00 AM EDT tablet [...] IF NEEDED SOLD: 03/07/2020 [facility] Levonorgestrel 0.946112 MG/HR Drug Implant Levonorgestrel 02/01/2020 11:57:05 AM EDT 20 MCG active [facility] Levonorgestrel 0.532542 MG/HR Drug Impla nt Levonorgestrel (Mirena) 20 mcg/24 hours (5 yrs) 52 mg intrauterine device Levonorgestrel (Mirena) 20 mcg/24 hours (5 yrs) 52 mg intrauterine device 02/01/2020 11:57:05 AM EDT 20 MCG active [facility] Levonorgestrel 0.536722 MG/HR Drug Impla nt Levonorgestrel (Mirena) 20 mcg/24 hours (5 yrs) 52 mg intrauterine device Levonorgestrel (Mirena) 20 mcg/24 hours (5 yrs) 52 mg intrauterine device 02/01/2020 11:57:05 AM EDT 20 MCG active [facility] Levonorgestrel 0.480629 MG/HR Drug Implant Levonorgestrel 02/01/2020 11:57:05 AM EDT 20 MCG active [facility] Levonorgestrel 0.934150 MG/HR Drug Implant Levonorgestrel 02/01/2020 11:57:05 AM EDT completed [facility] Levonorgestrel 0.414206 MG/HR Drug Impla nt Levonorgestrel (Mirena) 20 mcg/24 hours (5 yrs) 52 mg intrauterine device Levonorgestrel (Mirena) 20 mcg/24 hours (5 yrs) 52 mg intrauterine device 02/01/2020 11:57:05 AM EDT 20 MCG completed [facility] meloxicam 15 MG Oral Tablet Meloxicam Meloxicam 02/01/2020 11:54 :25 AM EDT 15 MG active [facility] meloxicam 15 MG Oral Tablet Meloxicam (Mobic) 15 mg ta blet Meloxicam (Mobic) 15 mg tablet 02/01/2020 11:54:25 AM EDT [address] [facility] meloxicam 15 MG Oral Tablet Meloxicam Meloxicam 02/01/2020 11:54 :25 AM EDT 15 MG active [facility] meloxicam 15 MG Oral Tablet Meloxicam (Mobic) 15 mg ta blet Meloxicam (Mobic) 15 mg tablet 02/01/2020 11:54:25 AM EDT [address] [facility] meloxicam 15 MG Oral Tablet Meloxicam Meloxicam 02/01/2020 11:54 :25 AM EDT 15 MG active [facility] meloxicam 15 MG Oral Tablet Meloxicam (Mobic) 15 mg ta blet Meloxicam (Mobic) 15 mg tablet 02/01/2020 11:54:25 AM EDT [address] [facility] Fluconazole 150 MG Oral Tablet Fluconazole (Diflucan) 150 mg tablet Fluconazole (Diflucan) 150 mg tablet 02/01/2020 11:53:42 AM EDT 150 MG completed [facility] Fluconazole 150 MG Oral Tablet Fluconazole 02/01/2020 11:53:42 AM EDT 150 MG completed [facility] Fluconazole 150 MG Oral Tablet Fluconazole 02/01/2020 11:53:42 AM EDT 150 MG completed [facility] Fluconazole 150 MG Oral Tablet Fluconazole 02/01/2020 11:53:42 AM EDT 150 MG completed [facility] Fluconazole 150 MG Oral Tablet Fluconazole (Diflucan) 150 mg tablet Fluconazole (Diflucan) 150 mg tablet 02/01/2020 11:53:42 AM EDT 150 MG completed [facility] Fluconazole 150 MG Oral Tablet Fluconazole (Diflucan) 150 mg tablet Fluconazole (Diflucan) 150 mg tablet 02/01/2020 11:53:42 AM EDT 150 MG completed [facility] doxycycline hyclate 100 MG Oral Tablet Doxycycline Hyclate D oxycycline Hyclate 02/01/2020 11:53:14 AM EDT [address] [facility] doxycycline hyclate 100 MG Oral Tablet Doxycycline Hyclate D oxycycline Hyclate 02/01/2020 11:53:14 AM EDT [address] [facility] doxycycline hyclate 100 MG Oral Tablet Doxycycline Hyclate D oxycycline Hyclate 02/01/2020 11:53:14 AM EDT [address] [facility] doxycycline hyclate 100 MG Oral Tablet Doxycycline Hyclate D oxycycline Hyclate 02/01/2020 11:53:14 AM EDT [address] [facility] doxycycline hyclate 100 MG Oral Tablet Doxycycline Hyclate D oxycycline Hyclate 02/01/2020 11:53:14 AM EDT [address] [facility] doxycycline hyclate 100 MG Oral Tablet Doxycycline Hyclate D oxycycline Hyclate 02/01/2020 11:53:14 AM EDT [address] [facility] 15 mg 02/01/2020 12:00:00 AM EDT [...] 01/24/2020 09:27:00 AM EDT 150 MG completed [facility] Fluconazole 150 MG Oral Tablet Fluconazole (Diflucan) 150 mg tablet Fluconazole (Diflucan) 150 mg tablet 01/24/2020 09:27:00 AM EDT 150 MG completed [facility] Fluconazole 150 MG Oral Tablet Fluconazole 01/24/2020 09:27:00 AM EDT 150 MG completed [facility] Fluconazole 150 MG Oral Tablet Fluconazole 01/24/2020 09:27:00 AM EDT 150 MG active [facility] Fluconazole 150 MG Oral Tablet Fluconazole 01/24/2020 09:27:00 AM EDT 150 MG completed [facility] Fluconazole 150 MG Oral Tablet Fluconazole (Diflucan) 150 mg tablet Fluconazole (Diflucan) 150 mg tablet 01/24/2020 09:27:00 AM EDT 150 MG completed [facility] Flu[facility] 150 MG Oral Tablet Fluconazole 01/24/2020 09:27:00 AM EDT 150 MG completed [facility] Fluconazole 150 MG Oral Tablet Fluconazole 01/24/2020 09:27:00 AM EDT 150 MG active [facility] Ciprofloxacin 500 MG Oral Tablet Ciprofloxacin Hcl Ciproflox acin Hcl 01/24/2020 09:24:50 AM EDT [address] [facility] Ciprofloxacin 500 MG Oral Tablet Ciprofloxacin Hcl (Ci pro) 500 mg tablet Ciprofloxacin Hcl (Cipro) 500 mg tablet 01/24/2020 09:24:50 AM EDT 50 0 MG completed [facility] Ciprofloxacin 500 MG Oral Tablet Ciprofloxacin Hcl Ciproflox acin Hcl 01/24/2020 09:24:50 AM EDT 500 MG [facility] Ciprofloxacin 500 MG Oral Tablet Ciprofloxacin Hcl Ciproflox acin Hcl 01/24/2020 09:24:50 AM EDT 500 MG active [facility] Ciprofloxacin 500 MG Oral Tablet Ciprofloxacin Hcl Ciproflox acin Hcl 01/24/2020 09:24:50 AM EDT 500 MG [facility] Ciprofloxacin 500 MG Oral Tablet Ciprofloxacin Hcl (Ci pro) 500 mg tablet Ciprofloxacin Hcl (Cipro) 500 mg tablet 01/24/2020 09:24:50 AM EDT 50 0 MG completed [facility] Ciprofloxacin 500 MG Oral Tablet Ciprofloxacin Hcl (Ci pro) 500 mg tablet Ciprofloxacin Hcl (Cipro) 500 mg tablet 01/24/2020 09:24:50 AM EDT 50 0 MG completed [facility] Ciprofloxacin 500 MG Oral Tablet Ciprofloxacin Hcl Ciproflox acin Hcl 01/24/2020 09:24:50 AM EDT 500 MG active L [facility] 500 mg 01/24/2020 12:00:00 AM [...] Multivitamin 01/22/2020 02:45:17 PM EDT 1 TAB [facility] Multivitamin 01/22/2020 02:45:17 PM EDT 1 TAB [facility] Multivitamin 01/22/2020 02:45:17 PM EDT 1 TAB comp [facility] Multivitamin 01/22/2020 02:45:17 PM EDT 1 TAB [facility] Multivitamin 01/22/2020 02:45:17 PM EDT 1 TAB comp [facility] Multivitamin 01/22/2020 02:45:17 PM EDT 1 TAB comp [facility] Multivitamin 01/22/2020 02:45:17 PM EDT 1 TAB [facility] Multivitamin 01/22/2020 02:45:17 PM EDT 1 TAB [facility] Multivitamin 01/22/2020 02:45:17 PM EDT 1 TAB [facility] 5 mg 01/20/2020 12:00:00 AM EST tablet [...] active Amoxicil gurinder 500 MG Oral Capsule [place] ([facility]) Fluconazole 150 MG Oral Tablet [Diflucan] Diflucan 150 MG Oral Tablet Diflucan 150 MG Oral Tablet 12/29/2019 12:00:00 AM EST active Fluconazole 150 MG Oral Tablet [Diflucan] [facility] Fluconazole 150 MG Oral Tablet Fluconazole 11/05/2019 11:00:50 AM EST 150 MG completed [facility] Fluconazole 150 MG Oral Tablet Fluconazole 11/05/2019 11:00:50 AM EST 150 MG completed [facility] Fluconazole 150 MG Oral Tablet Fluconazole 11/05/2019 11:00:50 AM EST 150 MG completed [facility] Fluconazole 150 MG Oral Tablet Fluconazole 11/05/2019 11:00:50 AM EST 150 MG completed [facility] Fluconazole 150 MG Oral Tablet Fluconazole 11/05/2019 11:00:50 AM EST 150 MG completed [facility] Fluconazole 150 MG Oral Tablet Fluconazole 11/05/2019 11:00:50 AM EST 150 MG completed [facility] Fluconazole 150 MG Oral Tablet Fluconazole 11/05/2019 11:00:50 AM EST 150 MG completed [facility] Fluconazole 150 MG Oral Tablet Fluconazole 11/05/2019 11:00:50 AM EST 150 MG completed [facility] Fluconazole 150 MG Oral Tablet Fluconazole 11/05/2019 11:00:50 AM EST 150 MG completed [facility] 150 mg 11/05/2019 12:00:00 AM EST tablet 1 TAKE 1 TABLET BY MOUTH FOR SINGLE DOSE TAKE 1 TABLET BY MOUTH FOR SINGLE DOSE SOLD: 11/05/2019 [facility] Amoxicillin 875 MG / Clavulanate 125 MG Oral Tablet Am oxicillin-Pot Clavulanate Amoxicillin-Pot Clavulanate 11/01/2019 12:33:30 PM EST 1 TAB [facility] Amoxicillin 875 MG / Clavulanate 125 MG Oral Tablet Am oxicillin-Pot Clavulanate Amoxicillin-Pot Clavulanate 11/01/2019 12:33:30 PM EST 1 TAB [facility] Amoxicillin 875 MG / Clavulanate 125 MG Oral Tablet Am oxicillin-Pot Clavulanate Amoxicillin-Pot Clavulanate 11/01/2019 12:33:30 PM EST 1 TAB [facility] Amoxicillin 875 MG / Clavulanate 125 MG Oral Tablet Am oxicillin-Pot Clavulanate Amoxicillin-Pot Clavulanate 11/01/2019 12:33:30 PM EST 1 TAB [facility] Amoxicillin 875 MG / Clavulanate 125 MG Oral Tablet Amoxicillin-Pot Clavulanate (Augmentin) 875-125 mg tablet Amoxicillin-Pot Clavulanate (Augmentin) 875-125 mg tablet 11/01/2019 12:33:30 PM EST 1 TAB [facility] Amoxicillin 875 MG / Clavulanate 125 MG Oral Tablet Amoxicillin-Pot Clavulanate (Augmentin) 875-125 mg tablet Amoxicillin-Pot Clavulanate (Augmentin) 875-125 mg tablet 11/01/2019 12:33:30 PM EST [address] [facility] Amoxicillin 875 MG / Clavulanate 125 MG Oral Tablet Am oxicillin-Pot Clavulanate Amoxicillin-Pot Clavulanate 11/01/2019 12:33:30 PM EST [address] [facility] Amoxicillin 875 MG / Clavulanate 125 MG Oral Tablet Amoxicillin-Pot Clavulanate (Augmentin) 875-125 mg tablet Amoxicillin-Pot Clavulanate (Augmentin) 875-125 mg tablet 11/01/2019 12:33:30 PM EST [address] [facility] Amoxicillin 875 MG / Clavulanate 125 MG Oral Tablet Am oxicillin-Pot Clavulanate Amoxicillin-Pot Clavulanate 11/01/2019 12:33:30 PM EST [address] [facility] Metronidazole 500 MG Oral Tablet Metronidazole 11/01/2019 12:33:17 PM EST 500 MG [facility] Metronidazole 500 MG Oral Tablet Metronidazole 11/01/2019 12:33:17 PM EST 500 MG completed [facility] Metronidazole 500 MG Oral Tablet Metronidazole 11/01/2019 12:33:17 PM EST 500 MG [facility] Metronidazole 500 MG Oral Tablet Metronidazole 11/01/2019 12:33:17 PM EST 500 MG [facility] Metronidazole 500 MG Oral Tablet Metronidazole 11/01/2019 12:33:17 PM EST 500 MG [facility] Metronidazole 500 MG Oral Tablet Metronidazole 11/01/2019 12:33:17 PM EST 500 MG [facility] Metronidazole 500 MG Oral Tablet Metronidazole 11/01/2019 12:33:17 PM EST 500 MG [facility] Metronidazole 500 MG Oral Tablet Metronidazole 11/01/2019 12:33:17 PM EST 500 MG [facility] Metronidazole 500 MG Oral Tablet Metronidazole 11/01/2019 12:33:17 PM EST 500 MG [facility] 875-125 mg 11/01/2019 12:00:00 AM EST tablet 14 TAKE ONE TABLET BY MOUTH TWICE A DAY TAKE ONE TABLET BY MOUTH TWICE A DAY SOLD: 11/01/2019 [facility] 500 mg 11/01/2019 12:00:00 AM EST tablet 14 TAKE ONE TABLET BY MOUTH TWICE A DAY FOR 7 DAYS TAKE ONE TABLET BY MOUTH TWICE A DAY FOR 7 DAYS SOLD: 11/01/2019 [facility] Cyclobenzaprine hydrochloride 5 MG Oral Tablet Cyclobenzaprine HCl 5 MG Oral Tablet (FLEXERIL) Cyclobenzaprine HCl 5 MG Oral Tablet (FLEXERIL) 2018 12:00:00 AM EST 5 mg Oral active Take 1 tablet by mouth nightly as needed for Muscle spasms [facility] Amoxicillin 500 MG Oral Capsule Amoxicillin 500MG Oral Capsule Amoxicillin 500MG Oral Capsule 09/25/2019 12:00:00 AM EST 1 abor lorraine Amoxicillin 500 MG Oral Capsule [place] ([facility]) Fluconazole 150 MG Oral Tablet [Diflucan] Diflucan 150 MG Oral Tablet Diflucan 150MG Oral Tablet 09/25/2019 12:00:00 AM EST aborted Fluconazole 150 MG Oral Tablet [Diflucan] [place] ([facility]) Levothyroxine Sodium 0.025 MG Oral Tablet Levothyroxine 09/06/2019 04:02:49 PM EDT 25 MCG completed [facility] Levothyroxine Sodium 0.025 MG Oral Tablet Levothyroxine 09/06/2019 04:02:49 PM EDT 25 MCG completed [facility] Levothyroxine Sodium 0.025 MG Oral Tablet Levothyroxine 09/06/2019 04:02:49 PM EDT 25 MCG completed [facility] Levothyroxine Sodium 0.025 MG Oral Table t Levothyroxine (Synthroid) 25 mcg tablet Levothyroxine (Synthroid) 25 mcg tablet 09/06/2019 04:02:49 PM E DT 25 MCG completed [facility] Levothyroxine Sodium 0.025 MG Oral Tablet Levothyroxine 09/06/2019 04:02:49 PM EDT 25 MCG completed [facility] Levothyroxine Sodium 0.025 MG Oral Tablet Levothyroxine 09/06/2019 04:02:49 PM EDT 25 MCG completed [facility] Levothyroxine Sodium 0.025 MG Oral Table t Levothyroxine (Synthroid) 25 mcg tablet Levothyroxine (Synthroid) 25 mcg tablet 09/06/2019 04:02:49 PM E DT 25 MCG completed [facility] Levothyroxine Sodium 0.025 MG Oral Table t Levothyroxine (Synthroid) 25 mcg tablet Levothyroxine (Synthroid) 25 mcg tablet 09/06/2019 04:02:49 PM E DT 25 MCG completed [facility] Levothyroxine Sodium 0.025 MG Oral Tablet Levothyroxine 09/06/2019 04:02:49 PM EDT 25 MCG completed [facility] Levonorgestrel 0.098912 MG/HR Drug Implant Levonorgestrel 09/06/2019 02:53:14 PM EDT completed [facility] Levonorgestrel 0.190684 MG/HR Drug Implant Levonorgestrel 09/06/2019 02:53:14 PM EDT completed [facility] Levonorgestrel 0.485916 MG/HR Drug Impla nt Levonorgestrel (Mirena) 20 mcg/24 hours (5 yrs) 52 mg intrauterine device Levonorgestrel (Mirena) 20 mcg/24 hours (5 yrs) 52 mg intrauterine device 09/06/2019 02:53:14 PM EDT completed [facility] Levonorgestrel 0.073215 MG/HR Drug Impla nt Levonorgestrel (Mirena) 20 mcg/24 hours (5 yrs) 52 mg intrauterine device Levonorgestrel (Mirena) 20 mcg/24 hours (5 yrs) 52 mg intrauterine device 09/06/2019 02:53:14 PM EDT completed [facility] Levonorgestrel 0.880782 MG/HR Drug Impla nt Levonorgestrel (Mirena) 20 mcg/24 hours (5 yrs) 52 mg intrauterine device Levonorgestrel (Mirena) 20 mcg/24 hours (5 yrs) 52 mg intrauterine device 09/06/2019 02:53:14 PM EDT completed [facility] Levonorgestrel 0.044706 MG/HR Drug Implant Levonorgestrel 09/06/2019 02:53:14 PM EDT completed [facility] 25 mcg 09/06/2019 12:00:00 AM EDT tablet 30 TAKE ONE TABLET BY MOUTH EVERY DAY TAKE ONE TABLET BY MOUTH EVERY DAY SOLD: 11/05/2019 [facility] Levothyroxine Sodium 0.025 MG Oral Table t levothyroxine (SYNTHROID, LEVOTHROID) 25 MCG tablet levothyroxine (SYNTHROID, LEVOTHROID) 25 MCG tablet 25 ug Oral aborted Take 25 mcg by mouth daily [facility] Levonorgestrel 0.873880 MG/HR Drug Impla nt levonorgestrel (MIRENA, 52 MG,) 20 MCG/24HR IUD levonorgestrel (MIRENA, 52 MG,) 20 MCG/24HR IUD 1 {each} Intrauterine aborted 1 each by Intraut erine route once [facility] Insurance Providers Payer name Policy type / Coverage type Policy ID Covered constitution party ID Covered constitution party's relationship to redman Policy Redman Plan Information [facility] [id number] SP [id number] [facility] MEDICAID [id number] [facility] MEDICAID [id number] Kaela [id number] [facility] [id number] SP [id number] [facility]) O [id number] S [id number] [facility] I [id number] Self [id number] [place] PPO [id number] [employer] Other 0 Self 0 United[employer] Other 0 Self 0 [facility] [id number] Self [id number] United[employer] Other 0 Self 0 United[employer] Other 0 Self 0 MEDICAID M [id number] Self [id number] EXCELLUS C [id number] Spouse [id number] BCBS CNY O [id number] U 59 MEDICAID W [id number] BLUE CHOICE OPTION O [id number] S [id number] BLUE CROSS BLUE SHIELD-PHYSICIAN [id number] 01 [id number] BLUE CROSS BLUE SHIELD-O/P [id number] 01 [id number] BLUE CROSS BLUE SHIELD-CLINIC [id number] 01 [id number] Problems, Conditions, and Diagnoses Code Display Name Description Problem Type Effective Dates Data Source(s) R39.82 [id number] Chronic bladder pain Problem 12:00:00 AM EST eC1 (Replaced By [facility]) Q21.1 Patent foramen ovale with atrial septal aneurysm Patent foramen ovale with atrial septal aneurysm [id number] 11/15/2020 12:00:00 AM [facility] D73.5 Splenic infarct Splenic infarct [id number] 11/12/2020 12:0 0:[address] 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 K76.9 Chronic nonalcoholic liver disease Chronic nonal coholic liver disease [id number] 10/24/2020 12:00:00 AM [facility] E66.9 Obesity Obesity [id number] 10/24/2020 12:00:00 AM [facility] [id number] Ostium secundum type atrial septal defec t Ostium secundum type atrial septal defect Problem 10/24/2020 12:00:00 AM EST [facility] ([facility]) [id number] Obesity Obesity Problem 10/24/2020 12:00:00 AM ES T [facility] ([facility]) [id number] Dietary management surveillance Dietary manageme nt surveillance Problem 10/24/2020 12:00:00 AM EST [facility] ([facility] [id number] Chronic nonalcoholic liver disease Chronic nonal coholic liver disease Problem 10/24/2020 12:00:00 AM EST [facility] ([facility] M32.9 [id number] Systemic lupus eryth ematosus, unspecified SLE type, unspecified organ involvement status Problem 10/01/2020 12:00:00 AM EST eCW1 ([facility]) E28.2 [id number] PCOS (polycystic ovarian syndrome) Proble m 08/15/2020 12:00:00 AM EDT eCW1 (Replaced By [facility]) K76.9 Liver disease, unspecified Liver disease, unspecified Diagnosis 11/12/2020 03:27:42 PM EST [facility] E66.9 Obesity, unspecified Obesity, unspecified Diagnosis 11/12/2020 03:27:42 PM EST [facility] M32.9 Systemic lupus erythematosus, unspecifie d Systemic lupus erythematosus, unspecifie Diagnosis 11/12/2020 03:27:42 PM EST [facility] E28.2 Polycystic ovarian syndrome Polycystic ovarian syndrom e Diagnosis 11/12/2020 03:27:42 PM EST [facility] D73.5 Infarction of spleen Infarction of spleen Diagnosis 11/12/2020 03:27:42 PM EST [facility] E06.3 Autoimmune thyroiditis Autoimmune thyroiditis Diagnosi s 11/12/2020 03:27:42 PM EST [facility] E03.8 Other specified hypothyroidism Other specified hypothy roidism Diagnosis 11/12/2020 03:27:42 PM EST [facility] Q21.1 Atrial septal defect Atrial septal defect Diagnosis 11/12/2020 03:27:42 PM EST [facility] K76.0 Fatty (change of) liver, not elsewhere c lassified Fatty (change of) liver, not elsewhere c Diagnosis 11/12/2020 03:27:42 PM EST [facility] Surgeries/Procedures Procedure Description Date Indications Data Source(s) ECG ROUTINE ECG W/LEAST 12 LDS W/I&R POCT AMB EKG Routine 11/12/2020 4:00 PM EST Patent foramen ovale with atrial septal aneurysm 11/12/2020 09:00:00 PM EST Patent foramen ovale with atrial septal aneurysm [facility] Patent foramen ovale with atrial septal aneurysm ECG ROUTINE ECG W/LEAST 12 LDS W/I&R 10/24/2020 12:00: 00 AM EST [place] ([facility] Single contrast barium enema (procedure) 05/30/2020 12 :41:[address] [facility] Single contrast barium enema (procedure) 05/30/2020 12 :41:[address] [facility] Pelvic echography (procedure) 04/23/2020 12:30:00 PM E [facility] Pelvic echography (procedure) 04/23/2020 12:30:00 PM E [facility] Pelvic echography (procedure) 04/23/2020 12:30:00 PM E [facility] Computed tomography of abdomen and pelvis with contrast (pro cedure) [facility] and [facility] with contrast (pro cedure) 03/19/2020 05:01:00 PM EDT [facility] l Computed tomography of abdomen and pelvis with contrast (pro cedure) 03/19/2020 [facility] of [facility] and pelvis with contrast (pro cedure) 03/19/2020 [facility] of abdomen and pelvis with contrast (pro cedure) 03/19/2020 05:01:00 PM [facility] Bacterial culture (procedure) 02/01/2020 12:00:00 AM E [facility] Bacteria identification test (procedure) 02/01/2020 12 :00:00 AM [facility] Bacterial culture (procedure) 02/01/2020 12:00:00 AM E [facility] Bacteria identification test (procedure) 02/01/2020 12 :00:00 AM [facility] Bacterial culture (procedure) 02/01/2020 12:00:00 AM E [facility] Bacteria identification test (procedure) 02/01/2020 12 :00:00 AM [facility] Bacterial culture (procedure) 02/01/2020 12:00:00 AM E [facility] Bacteria identification test (procedure) 02/01/2020 12 :00:[address] [facility] Bacterial culture (procedure) 02/01/2020 12:00:00 AM E [facility] Bacteria identification test (procedure) 02/[facility]2020 [facility]/01/2020 12:00:00 AM E [facility] Bacteria identification test (procedure) 02/01/2020 12 :00:[address] [facility] Pelvic echography (procedure) 01/22/2020 06:42:00 PM E [facility] Pelvic echography (procedure) 01/22/2020 06:42:00 PM E [facility] Pelvic echography (procedure) 01/22/2020 06:42:00 PM E [facility] Pelvic echography (procedure) 01/22/2020 06:42:00 PM E [facility] Pelvic echography (procedure) 01/22/2020 06:42:00 PM E [facility] Pelvic echography (procedure) 01/22/2020 06:42:00 PM E [facility] Pelvic echography (procedure) 01/22/2020 06:42:00 PM E [facility] Pelvic echography (procedure) 01/22/2020 06:42:00 PM E [facility] Urine culture (procedure) 01/22/2020 [facility] 01/22/2020 12:00:00 AM [facility] Urine culture (procedure) 01/22/2020 12:00[facility] (procedure[facility] 01/22/2020 [facility] ([facility] 01/22/2020 12:[facility] (procedure) 01/22/2020 12:00:00 AM [facility] Urine culture (procedure) 01/22/2020 12:00:00 AM [facility] Urine culture (procedure) 01/22/2020 12:00:00 AM [facility] Pelvic echography (procedure) 11/05/2019 01:48:00 PM E [facility] Pelvic echography (procedure) 11/05/2019 01:48:00 PM E [facility] Pelvic echography (procedure) 11/05/2019 01:48:00 PM E [facility] Pelvic echography (procedure) 11/05/2019 01:48:00 PM E [facility] Pelvic echography (procedure) 11/05/2019 01:48:00 PM E [facility] Pelvic echography (procedure) 11/05/2019 01:48:00 PM E [facility] Pelvic echography (procedure) 11/05/2019 01:48:00 PM E [facility] Pelvic echography (procedure) 11/05/2019 01:48:00 PM E [facility] Results ID Date Data Source [id number] 11/25/2020 09:52:00 AM [facility] BRSEE NOTERESULT: [id number] variant not detectedSEE NOTEINTERPRETATION: This individual is negative (normal) for [id number] variant in the Prothrombin/Factor II gene. Increasedrisk of thrombophilia can be caused by a variety of geneticand non-genetic factors not screened for by this assay.Laboratory testing supervised and results monitored byJuana Panchal, Ph.D., [facility], [facility].The [id number] mutation [EZ526202.1: g.60833M>A (c.*97G>A)] inthe Prothrombin/Factor II gene is the second most commoninherited risk factor for thrombosis occurring inapproximately 2% of Caucasians. Presence of the mutation isassociated with an elevation of prothrombin levels to about30% above normal in heterozygotes and to 70% above normal inhomozygotes.Prothrombin (C76768K) mutations are detected byamplification of their selected [...] your local [facility]' genetic counselor or call [phone]) for assistance with interpretation of theseresults.This test was developed and its analytical performancecharacteristics have been determined by [facility] [place]. It has not beencleared or approved by FDA. This assay has been validatedpursuant to the CLIA regulations and is used for clinicalpurposes.THIS TEST WAS PERFORMED AT:[employer]/[place] [id number] [facility] [id number] AYON MD,PHD,[facility]I [facility] Name Value Range Interpretation Code Description Data Jodie rce(s) Supporting Document(s) Leukocytes [#/volume] in Blood by Automated count 8.0 10*3/uL 4.45-[address] [facility] Erythrocytes [#/volume] in Blood by Automated count 4.41 10*6/uL 4.20 -5.[address] [facility] Hemoglobin [Moles/volume] in Blood 13.3 g/dL 10.7-15.[address] [facility] Hematocrit [Volume Fraction] of Blood by Automated count 41.6 % 3 7-[address] [facility] Erythrocyte mean corpuscular volume [Ent itic volume] in Cord blood by Automated count 94.3 fL 80-96 N [facility] Erythrocyte mean corpuscular hemoglobin [Entitic mass] by Automated count 30.2 pg 27-31 N [facility] Erythrocyte mean corpuscular hemoglobin concentration [Mass/volume] in Cord blood 32.0 g/dL 33-37 Below low normal [facility] Erythrocyte distribution width [Entitic volume] by Automated count 12 % 11-[address] [facility] Platelets [#/volume] in Blood by Automated count 305 10*3/uL 130-[address] [facility] Platelet mean volume [Entitic volume] in Blood 10.4 fL 9.1-13.[address] [facility] Neutrophils/100 leukocytes in Blood by Automated count 54.5 % 41- [address] [facility] Neutrophils [#/volume] in Blood by Automated count 4.4 U 1.7-7.[address] [facility] Lymphocytes/100 leukocytes in Blood by Automated count 32.4 % 14- [address] [facility] Lymphocytes [#/volume] in Blood by Automated count 2.6 U 0.6-4.[address] [facility] Monocytes/100 leukocytes in Blood by Automated count 6.7 % 4-[address] [facility] Monocytes [#/volume] in Blood by Automated count 0.5 U 0.2-1.[address] [facility] Eosinophils/100 leukocytes in Blood by Automated count 5.7 % 0-[address] [facility] Eosinophils [#/volume] in Blood by Automated count 0.5 U 0.0-0.[address] [facility] Basophils/100 leukocytes in Blood by Automated count 0.5 % 0.4-[address] [facility] Basophils [#/volume] in Blood by Automated count 0.0 U 0.0-0.[address] [facility] NUCLEATED RED BLOOD CELL 0 % [facility] NUCLEATED RED BLOOD CELL# 0 U [facility] Immature granulocytes [Presence] in Blood by Automated count 0-[address] [facility] Immature granulocytes [#/volume] in Blood by Automated count 0.0 U 0-0.[address] [facility] Manual Differential panel - Blood NO [facility] ID Date Data Source [id number] 11/25/2020 10:37:00 AM EST [facility] BRSEE NOTERESULT: [id number] variant not detectedSEE NOTEINTERPRETATION: This individual is negative (normal) for [id number] variant in the Prothrombin/Factor II gene. Increasedrisk of thrombophilia can be caused by a variety of geneticand non-genetic factors not screened for by this assay.Laboratory testing supervised and results monitored Daniela Panchal, Ph.D., [facility], [facility].The [id number] mutation [WP920395.1: g.24949C>A (c.*97G>A)] inthe Prothrombin/Factor II gene is the second most commoninherited risk factor for thrombosis occurring inapproximately 2% of Caucasians. Presence of the mutation isassociated with an elevation of prothrombin levels to about30% above normal in heterozygotes and to 70% above normal inhomozygotes.Prothrombin (K02634E) mutations are detected byamplification of their selected gene regions by polymerasechain reaction (PCR) and fluorescent probe hybridization tothe targeted region, followed by melting curve analysis witha real time PCR system. Although rare, false positive orfalse negative results may occur. All results should beinterpreted in context of clinical findings, relevanthistory, and other laboratory data.Health care providers, please contact your local [employer] genetic counselor or call [phone] for assistance with interpretation of theseresults.This test was developed and its analytical performancecharacteristics have been determined by [facility] [place]. It has not beencleared or approved by FDA. This assay has been validatedpursuant to the CLIA regulations and is used for clinicalpurposes.THIS TEST WAS PERFORMED AT:[employer] [id number] [facility] [place] [address]YYITQJASON AYON MD,PHD,ONI [facility] Name Value Range Interpretation Code Description Data Jodie rce(s) Supporting Document(s) C reactive protein [Mass/volume] in Serum or Plasma 3.8 mg/L 0.0-5. [address] [facility] ID Date Data Source [id number] 11/29/2020 04:27:00 [facility] NOT[facility]: [id number] variant not detectedSEE NOTEINTERPRETATION: This individual is negative (normal) for [id number] variant in the Prothrombin/Factor II gene. Increasedrisk of thrombophilia can be caused by a variety of geneticand non-genetic factors not screened for by this assay.Laboratory testing supervised and results monitored Daniela Panchal, Ph.D., [facility].The S16162I mutation [EG119183.1: g.70757R>A (c.*97G>A)] inthe Prothrombin/Factor II gene is the second most commoninherited risk factor for thrombosis occurring inapproximately 2% of Caucasians. Presence of the mutation isassociated with an elevation of prothrombin levels to about30% above normal in heterozygotes and to 70% above normal inhomozygotes.Prothrombin (C09256E) mutations are detected byamplification of their selected gene regions by polymerasechain reaction (PCR) and fluorescent probe hybridization tothe targeted region, followed by melting curve analysis witha real time PCR system. Although rare, false positive orfalse negative results may occur. All results should beinterpreted in context of clinical findings, relevanthistory, and other laboratory data.Health care providers, please contact your local [employer] genetic counselor or call [phone]) for assistance with interpretation of theseresults.This test was developed and its analytical performancecharacteristics have been determined by [facility]. It has not beencleared or approved by FDA. This assay has been validatedpursuant to the CLIA regulations and is used for clinicalpurposes.THIS TEST WAS PERFORMED AT:[employer] [id number] [place] [address]ALRVRJASON AYON MD,PHD,ONI [facility] Name Value Range Interpretation Code Description Data Jodie rce(s) Supporting Document(s) Cardiolipin IgG Ab in Serum [address] [facility] Value Interpretation ----- < or = 14 Negative 15 - 20 Indeterminate 21 - 80 Low to Medium Positive >80 High Positive Cardiolipin IgA Ab in Serum <11 [facility] Value Interpretation ----- < or = 11 Negative 12 - 20 Indeterminate 21 - 80 Low to Medium Positive >80 High Positive Cardiolipin IgM Ab in Serum 13 M[address] Above high normal [facility] Value Interpretation ----- < or = 12 Negative 13 - 20 Indeterminate 21 - 80 Low to Medium Positive > 80 High PositiveThe antiphospholipid antibody syndrome (APS) is aclinical-pathologic correlation that includes aclinical event (e.g. thrombosis, loss,thrombocytopenia) and persistent positiveantiphospholipid antibodies(IgM or IgG AWILDA >40 MPL/GPL, IgM or IgG anti-y6XAQsafyfxgezx or a lupus anticoagulant). Internationalconsensus guidelines for APS suggest waiting at least12 weeks before retesting to confirm antibodypersistence. The [facility] Lupus [facility] immunological classificationcriteria for systemic lupus erythematosus (SLE)include testing for isotype IgA, which has yet to beincorporated into APS criteria. Low levelantiphospholipid antibodies may sometimes be detectedin the setting of infection, drug therapy or aging.THIS TEST WAS PERFORMED AT:[employer] [address]YSSHGR MERATI,MD ID Date Data Source [id number] 11/25/2020 10:37:00 AM [facility] BR BRFORMERLY [facility] BRSEE NOTERESULT: [id number] variant not detectedSEE NOTEINTERPRETATION: This individual is negative (normal) for [id number] variant in the Prothrombin/Factor II gene. Increasedrisk of thrombophilia can be caused by a variety of geneticand non-genetic factors not screened for by this assay.Laboratory testing supervised and results monitored byJuana Panchal, Ph.D., [facility].The F62866W mutation [XD873958.1: g.65395U>A (c.*97G>A)] inthe Prothrombin/Factor II gene is the second most commoninherited risk factor for thrombosis occurring inapproximately 2% of Caucasians. Presence of the mutation isassociated with an elevation of prothrombin levels to about30% above normal in heterozygotes and to 70% above normal inhomozygotes.Prothrombin (I93275M) mutations are detected byamplification of their selected gene regions by polymerasechain reaction (PCR) and fluorescent probe hybridization tothe targeted region, followed by melting curve analysis witha real time PCR system. Although rare, false positive orfalse negative results may occur. All results should beinterpreted in context of clinical findings, relevanthistory, and other laboratory data.Health care providers, please contact your local [employer] genetic counselor or call [phone] for assistance with interpretation of theseresults.This test was developed and its analytical performancecharacteristics have been determined by [facility] [place]. It has not beencleared or approved by FDA. This assay has been validatedpursuant to the CLIA regulations and is used for clinicalpurposes.THIS TEST WAS PERFORMED AT:[employer] [id number] [place] [address]MUGPCJASON AYON MD,PHD,ONI [facility] Name Value Range Interpretation Code Description Data Jodie rce(s) Supporting Document(s) Thyrotropin [Units/volume] in Serum or Plasma by Detec tion limit <= 0.005 mIU/L 2.34 u[iU]/mL 0.35-5.50 N [facility] al ID Date Data Source [id number] 11/29/2020 04:27:00 PM [facility] NOT[facility]ESULT: [id number] variant not detectedSEE NOTEINTERPRETATION: This individual is negative (normal) for wplR07476U variant in the Prothrombin/Factor II gene. Increasedrisk of thrombophilia can be caused by a variety of geneticand non-genetic factors not screened for by this assay.Laboratory testing supervised and results monitored byJuana Panchal, Ph.D., [facility].The F83998Y mutation [LR526338.1: g.72024F>A (c.*97G>A)] inthe Prothrombin/Factor II gene is the second most commoninherited risk factor for thrombosis occurring inapproximately 2% of Caucasians. Presence of the mutation isassociated with an elevation of prothrombin levels to about30% above normal in heterozygotes and to 70% above normal inhomozygotes.Prothrombin (L37208Q) mutations are detected byamplification of their selected gene regions by polymerasechain reaction (PCR) and fluorescent probe hybridization tothe targeted region, followed by melting curve analysis witha real time PCR system. Although rare, false positive orfalse negative results may occur. All results should beinterpreted in context of clinical findings, relevanthistory, and other laboratory data.Health care providers, please contact your local [employer] genetic counselor or call [phone] for assistance with interpretation of theseresults.This test was developed and its analytical performancecharacteristics have been determined by [facility]. It has not beencleared or approved by FDA. This assay has been validatedpursuant to the CLIA regulations and is used for clinicalpurposes.THIS TEST WAS PERFORMED AT:[employer] [id number] [address] [address]WZTODJASON AYON MD,PHD,ONI [facility] Name Value Range Interpretation Code Description Data Jodie rce(s) Supporting Document(s) Protein S [Units/volume] in Platelet poor plasma by Co agulation assay 84 % normal 70-140 [facility] Protein S actual/normal in Platelet poor plasma by Coa gulation assay 97 % normal 50-147 [facility] l THIS TEST WAS PERFORMED AT:[facility] [id number] [place] [address] MD,PHD ID Date Data Source [id number] 11/29/2020 04:27:00 PM EST [facility] NOT[facility]: [id number] variant not detectedSEE NOTEINTERPRETATION: This individual is negative (normal) for yzeG85828J variant in the Prothrombin/Factor II gene. Increasedrisk of thrombophilia can be caused by a variety of geneticand non-genetic factors not screened for by this assay.Laboratory testing supervised and results monitored Daniela Panchal, Ph.D., [facility].The K94471I mutation [YN057502.1: g.95122A>A (c.*97G>A)] inthe Prothrombin/Factor II gene is the second most commoninherited risk factor for thrombosis occurring inapproximately 2% of Caucasians. Presence of the mutation isassociated with an elevation of prothrombin levels to about30% above normal in heterozygotes and to 70% above normal inhomozygotes.Prothrombin (G73883E) mutations are detected byamplification of their selected gene regions by polymerasechain reaction (PCR) and fluorescent probe hybridization tothe targeted region, followed by melting curve analysis witha real time PCR system. Although rare, false positive orfalse negative results may occur. All results should beinterpreted in context of clinical findings, relevanthistory, and other laboratory data.Health care providers, please contact your local [employer] genetic counselor or call [phone]) for assistance with interpretation of theseresults.This test was developed and its analytical performancecharacteristics have been determined by [facility]. It has not beencleared or approved by FDA. 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 F5 gene mutations found [Identifier] in Blood or Tissue by Molecular genetics method [facility] INTERPRETATION: This individual is negat jadyn (normal) for theFactor V Leiden (R506Q) variant in the Factor V gene.Increased risk of thrombophilia can be caused by a varietyof genetic and non-genetic factors not screened for by thisassay.Laboratory testing supervised and results monitored by MD Drea, PhD, [facility].MUTATION ANALYSIS:The Factor V Leiden (R506Q) mutation [NM 331649.2: c.1601G>A(p.R534Q)] in the Factor V gene is [...] its analytical performancecharacteristics have been determined by [facility] [place]. It has not beencleared or approved by FDA. This assay has been validatedpursuant to the CLIA regulations and is used for clinicalpurposes.Health care providers, please contact your local [employer] genetic counselor or call [phone]) for assistance with interpretation of theseresults.THIS TEST WAS PERFORMED AT:[employer] [id number] [facility] [place] [address]JASON AYON MD,PHD,ONI ID Date Data Source [id number] 11/29/2020 04:27:00 PM [facility] BR BRFORMERLY [facility] BRSEE NOTERESULT: [id number] variant not detectedSEE NOTEINTERPRETATION: This individual is negative (normal) for zikA23969I variant in the Prothrombin/Factor II gene. Increasedrisk of thrombophilia can be caused by a variety of geneticand non-genetic factors not screened for by this assay.Laboratory testing supervised and results monitored byJuana Panchal, Ph.D., [facility].The N00495G mutation [ZR980598.1: g.68482R>A (c.*97G>A)] inthe Prothrombin/Factor II gene is the second most commoninherited risk factor for thrombosis occurring inapproximately 2% of Caucasians. Presence of the mutation isassociated with an elevation of prothrombin levels to about30% above normal in heterozygotes and to 70% above normal inhomozygotes.Prothrombin (W01318I) mutations are detected byamplification of their selected [...] your local [employer] genetic counselor or call [phone]) for assistance with interpretation of theseresults.This test was developed and its analytical performancecharacteristics have been determined by [facility] [place]. It has not beencleared or approved by FDA. This assay has been validatedpursuant to the CLIA regulations and is used for clinicalpurposes.THIS TEST WAS PERFORMED AT:[employer] [id number] [facility] [place] [address]WSEZNJASON AYON MD,PHD,ONI [facility] Name Value Range Interpretation Code Description Data Jodie rce(s) Supporting Document(s) ID Date Data Source [id number] 11/29/2020 04:27:00 PM [facility] NOT[facility]: [id number] variant not detectedSEE NOTEINTERPRETATION: This individual is negative (normal) for yfwG38803J variant in the Prothrombin/Factor II gene. Increasedrisk of thrombophilia can be caused by a variety of geneticand non-genetic factors not screened for by this assay.Laboratory testing supervised and results monitored byJuana Panchal, Ph.D., [facility].The E38270J mutation [OI157959.1: g.39844R>A (c.*97G>A)] inthe Prothrombin/Factor II gene is the second most commoninherited risk factor for thrombosis occurring inapproximately 2% of Caucasians. Presence of the mutation isassociated with an elevation of prothrombin levels to about30% above normal in heterozygotes and to 70% above normal inhomozygotes.Prothrombin (Q78960Q) mutations are detected byamplification of their selected gene regions by polymerasechain reaction (PCR) and fluorescent probe hybridization tothe targeted region, followed by melting curve analysis witha real time PCR system. Although rare, false positive orfalse negative results may occur. All results should beinterpreted in context of clinical findings, relevanthistory, and other laboratory data.Health care providers, please contact your local [employer] genetic counselor or call [phone]) for assistance with interpretation of theseresults.This test was developed and its analytical performancecharacteristics have been determined by [facility]. It has not beencleared or approved by FDA. This assay has been validatedpursuant to the CLIA regulations and is used for clinicalpurposes.THIS TEST WAS PERFORMED AT:[employer] [id number] [place] [address]PPROYJASON AYON MD,PHD,ONI [facility] Name Value Range Interpretation Code Description Data Jodie rce(s) Supporting Document(s) Protein C Ag in Platelet poor plasma 108 % 70-140 [facility] Units: % of normalTHIS TEST WAS PERFORME D AT:[employer] [id number] [place] [address] MD,PHD ID Date Data Source [id number] 11/29/2020 04:27:00 PM EST [facility] BRSEE NOTERESULT: [id number] variant not detectedSEE NOTEINTERPRETATION: This individual is negative (normal) for uxzX47651O variant in the Prothrombin/Factor II gene. Increasedrisk of thrombophilia can be caused by a variety of geneticand non-genetic factors not screened for by this assay.Laboratory testing supervised and results monitored byJuana Panchal, Ph.D., [facility].The S24599U mutation [FG409993.1: g.53371T>A (c.*97G>A)] inthe Prothrombin/Factor II gene is the second most commoninherited risk factor for thrombosis occurring inapproximately 2% of Caucasians. Presence of the mutation isassociated with an elevation of prothrombin levels to about30% above normal in heterozygotes and to 70% above normal inhomozygotes.Prothrombin (L81923R) mutations are detected byamplification of their selected gene regions by polymerasechain reaction (PCR) and fluorescent probe hybridization tothe targeted region, followed by melting curve analysis witha real time PCR system. Although rare, false positive orfalse negative results may occur. All results should beinterpreted in context of clinical findings, relevanthistory, and other laboratory data.Health care providers, please contact your local [employer] genetic counselor or call [phone] for assistance with interpretation of theseresults.This test was developed and its analytical performancecharacteristics have been determined by [facility]. It has not beencleared or approved by FDA. This assay has been validatedpursuant to the CLIA regulations and is used for clinicalpurposes.THIS TEST WAS PERFORMED AT:[employer] [id number] [place] [address]XCNFQJASON AYON MD,PHD,ONI [facility] Name Value Range Interpretation Code Description Data Jodie rce(s) Supporting Document(s) Anti-Thrombin III Activity 91 % normal 80-135 L [facility] THIS TEST WAS PERFORMED AT:[employer] [id number] [place] [address] MD,PHD ID Date Data Source [id number] 11/29/2020 04:27:00 PM [facility] BRSEE NOTERESULT: [id number] variant not detectedSEE NOTEINTERPRETATION: This individual is negative (normal) for jzrE00607R variant in the Prothrombin/Factor II gene. Increasedrisk of thrombophilia can be caused by a variety of geneticand non-genetic factors not screened for by this assay.Laboratory testing supervised and results monitored byJuana Panchal, Ph.D., [facility].The X75881N mutation [XC427697.1: g.49170J>A (c.*97G>A)] inthe Prothrombin/Factor II gene is the second most commoninherited risk factor for thrombosis occurring inapproximately 2% of Caucasians. Presence of the mutation isassociated with an elevation of prothrombin levels to about30% above normal in heterozygotes and to 70% above normal inhomozygotes.Prothrombin (V12814W) mutations are detected byamplification of their selected gene regions by polymerasechain reaction (PCR) and fluorescent probe hybridization tothe targeted region, followed by melting curve analysis witha real time PCR system. Although rare, false positive orfalse negative results may occur. All results should beinterpreted in context of clinical findings, relevanthistory, and other laboratory data.Health care providers, please contact your local [employer] genetic counselor or call [phone] for assistance with interpretation of theseresults.This test was developed and its analytical performancecharacteristics have been determined by [facility]. It has not beencleared or approved by FDA. This assay has been validatedpursuant to the CLIA regulations and is used for clinicalpurposes.THIS TEST WAS PERFORMED AT:[employer] [id number] [place] [address]ZYWCQJASON AYON MD,PHD,ONI [facility] Name Value Range Interpretation Code Description Data Jodie rce(s) Supporting Document(s) Fibrinogen [Mass/volume] in Platelet poor plasma by Coagulat ion assay 290 mg/dL 175-425 [facility] THIS TEST WAS PERFORMED AT:[facility]/[employer] [id number] [place] [address] MD,PHD ID Date Data Source [id number] 11/19/2020 08:21:00 AM [facility] Patient Name: ERYN NAVARRO LM : 1990 Sex: F Pt Unit #: [id number] Location:[facility] Provider: Visit Date/Time: 11/19/20 Primary Insurance: [facility] Secondary Insurance: Self Pay Intake Vital Signs [...] female presents today s/p hospital discharge from [facility] 09/22/20-09/26/20. Patients discharge diagnosis Splenic Infarct, Patent Foramen Ovale/Interatrial Septal Aneurysm. Rheumatology consult done and holding off on restarting Plaquenil until sees Pulmonology. Patient saw Cardiology and she is to be monitoring BP at home. Patient notes that she checks Bi-weekly 130'sover low 80's per patient. Patient notes Administrator wants her to be referred for possible removal of diseased portion of her spleen. Patient needs referral to Pulmonology. 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 States that she was diagnosed by her tobacco hanger. Will check urine today and will treat if infection is present. Will refer to urology for further evaluation. Orders: Referrals: Urology Referral (4) ISRAEL positive: Status: Acute SNOMED Code(s): 996486039 Category: Medical Plan - Eryn Martinez NP: Encouraged patient to continue scheduled follow-up with rheumatology. Discussed with her that condition can affect different organs of the body in different ways. (5) Rosendo's thyroiditis: Status: Acute Code(s): E06.3 - Autoimmune thyroiditis SNOMED Code(s): 93265773 Category: Medical Plan - Eryn Martinez NP: [...] not intractable, without status migrainosus SNOMED Code(s): 6744137 Category: Medical Plan - Eryn Martinez NP: [...] - Systemic lupus erythematosus, unspecified SNOMED Code(s): 19076315 Category: Medical Qualifiers: Systemic lupus erythematosus organ involvement: unspecified Systemic lupus erythematosus type: unspecified Qualified Code(s): M32.9 - Systemic lupus erythematosus, unspecified Orders: Orders: Protein C Antigen 11/19/20 AT3 Anti-Thrombin III Activity 11/19/20 Protein S Antigen, Tot/Free 11/19/20 Referrals: Hematology/Oncology Referral (8) PFO (patent foramen ovale): Status: Acute Code(s): Q21.1 - Atrial septal defect SNOMED Code(s): 028667434 Category: Medical Plan - Eryn Martinez RAIL DETECTOR CAR OPERATOR: Will refer to pulmonology as suggested by discharge instructions. Also encouraged patient to continue scheduled follow-ups with cardiology. Orders: Referrals: Pulmonary Referral (9) Dysuria: Status: Acute Code(s): R30.0 - Dysuria SNOMED Code(s): 42787204 Category: Medical Plan - Eryn Martinez RAIL DETECTOR CAR OPERATOR: Urine in the office is indicative of [...] [place] [address] New Pt Extended Comp Patient Type New [...] Dysuria R30.0 <Electronically signed by Eryn Martinez RAIL DETECTOR CAR OPERATOR> 11/23/20 1401 Name Value Range Interpretation Code Description Data Jodie rce(s) Supporting Document(s) ID Date Data Source [id number] 10/08/2020 03:34:20 PM [facility] Name Value Range Interpretation Code Description Data Jodie rce(s) Supporting Document(s) Progress Note [facility] NBHHXe8aQwACJgCf38/JMMqwMRLki9UgMUpoOZc7RWxfJVIjO6MvEZM4lH0pSTM5HCgQIrQsQeTaQGO0 [facility] AxUzpEDqVgDAGeRxoJJsQvGMcxHazbcQWmVM3VqRU5WVChC38sPWLgOTBlV1BoAZDnQLG+Xq4RYDZblX EuZL0LRhlI3F1nc8eHAi8+rJ8ZXY22b4AGKso6CtvPIAHaRXL4U/HpRCnomooEaoZulfTEri55XTR7LU S4LKa4aRppAuQvsyzc9WxtupqlDjS/j7oQOZldu3t/ 2h1Hl1aNDpBm/6Lqx4y+moses+ze2XZrWx5cGfD/mfxv/yhR+P1N5zT+OprqFTcXEAGTZfNkMwlY5Whdl1 [file] Y98clX+ZTqpA3IF7yd4Ci51Q6mnr/Mónica+w4E3j/UrVTf0zhtpziPOW2xKG6WL/8Dv/51xk0ZKO1ha2Dc [file] ID Date Data Source [id number] 10/07/2020 10:03:57 AM EST [facility] Name Value Range Interpretation Code Description Data Jodie rce(s) Supporting Document(s) Progress Note [facility] OZICWq6wQkOUQrDy90/JTLmxFSSiq3PyUVjqOTf7ZGphBORgU4LtETZ8eQ0uASD9WPsLLqLeUwOuXOF0 lbm [file] AgICAgICAgICAgICAgICAgICAgICAgICAgICAgICAg CFWuRZIgLUBpNSOsDJNuKURoJADeXCDlUUZmMOObCOEiQRAsOXHmDCCjFJMrKJJwBBKlILCiSH7AQLVs ICAgICAgICAgICAgICAgICAgICAgICAgICAgICAgICAgICAgICAgICAgICAgICAgICAgICAgICAgICAg ICAgICAgICAgICAgICAgICAgICAgICAgICAgICAgIC PnSMOzOV5BQDChMNHxTJPmNXJwIWGvWONxAAMjRSBzVUAbLYMzLMDcNXDdLDIdYBAaQHIaCKIoNFAuCV NeVVLbHTCiRKTqHZQwELEiJXEbGHQnPDXnRTTvJCOvBWZnGYPgBVIvJKAxBJTvCK8RRRVlUTQuJQTnKO AgICAgICAgICAgICAgICAgICAgICAgICAgICAgICAg NDUvGECdCKFzWUGxZZQuPKIoDHIiVAJrXBXqTDLzVOZlOVWuEATmHWEyXTLoPCCrLNGhIGYcPYYrMR4H ICAgICAgICAgICAgICAgICAgICAgICAgICAgICAgICAgICAgICAgICAgICAgICAgICAgICAgICAgICAg ICAgICAgICAgICAgICAgICAgICAgICAgICAgICAgIC LcVDUwEFUtZY7EAICgBFFuZXStXXGfZACnFHVsXEGpIZFsNVLkGUJdEFKwFYMdDKUhARLmUGVuVQErUD XxDMHySHNjIAHrBIIoAEDwSBEySRYqHLRlSSTaYZVfNERjZSAvYKSkUIVeSDFePOQnKP7NHOIhPASpIZ AgICAgICAgICAgICAgICAgICAgICAgICAgICAgICAg ICAgICAgICAgICAgICAgICAgICAgICAgICAgICAgICAgICAgICAgICAgICAgICAgICAgICAgICAgICAg BQ6OTQUxWOKwGOZwXKDmLKMaNAYxBLPzTUQtICRjCKCfZPDlMXWqGXBeLBZfQPNnEGRaRJAfRIAjIXSb ICAgICAgICAgICAgICAgICAgICAgICAgICAgICAgIC WmFGNnQYApLRBlXM8HNZJtZKUgFQMhMEDnISHdSPNtZGWcNKDoZKGdITUzHCSqNFNrXIJaMCMwJGShOH CxZUDxLZDkTJOyTBWmXALlSEPrQZDnQVPqZCBpNXMzIESqGXPsFOEvSRQhQQDdGSWpARKtVT0VCE62vM Shl8Y8FHQsGW4rrxs/Ku6VECnquoHlfXJiMA4NKyNu MS7jnx0SXlMxDT8gkm0AWJjOKpNvX3O1fYVxEXJsXZVABhIlR82qKJsqNv28IAxrHJAtJxHeUAo3Rf1E YkDjU9awVTEiUbH8KKGzWoUoERjnDL9Yx4HifMBtPDo+Xj3UGM1ob7KmMHukZTPiKT7jom9MNYmXEtCb J7PwbpG1YYEnPCJzRc0QGNJfXYAlvXGmWLJbMVMIDs IcA1NmuP71GEPMKv1+AEcxwcNiHerAYcEhBAVzw3SxAJh6TE3APYUvVAe4gCNvGKKqP6Gey3WdWj29XZ YwTwqcTuxjgltix43sRGl5YVRRKUApqJDiIV6oTS4eEFEjJDMtAvBzRTHIYX1YTDQjDNVomTFcNQTpPG QBVA1SUZmsFKT8EPWsigXegXPnCFyxGR6AWIBseuTo MTkgMCBSDQo+Jr3SBF3ci5EfHGmiUOBdOQ4fgx6DVXmIUqUmN1G2aINoK8X1PYiyIm8PXCMtXFYmTQxa FPEZAVgtCO4EPH7eosK8SW6JjFLtLEZmUUNhkKPrTNy1A46sqTXqZCxrID9XVIZ+Manuel+Uu0MFSFgUBTa HHQkSmTdGJMDYdCcG3ZcC2RFi2OgP2XeCK60uCpyyb GuYKzfQH7NUS0jFOIgLJPZCK4ZgVJaoH2zlxPfYPYvCIULNiPcG73dlFJdSQIuDCF0ITUqSj7XUETtA7 VfsgCrzBumgdUmNKVqIAQMOG3PWKckpdZjlOIzaPggPD31rIzqMC5EOh3RLgRcYH3vkw9HrCQmBp6WFC SmEb0IIVUbLZByLIEkSRB4ZXMhCcWwDNypWJMnVLAk HYN9VJCkPCNeRO8UPsQpKZGnUVE5JsUyKRQjVSUixk8MSRLnEHEjQCW1HBInLWUgMBWfDHsnAXQrGBKt BJY5QCDwEBGwRU5UAjHvUYUoPDV4XQwzOKPvGHZaab3BDGFwEIZxCOuwFUZnWOZbOXFkFImwTNHjOETl VuNpFHAoXTQgRC7THrSkMIBaHCU7TXDiGUGuDYBcxg 5QKVPbWSImSoZaNlBfLVIrGHOiYZoxBJZeMGY0EAy7NUDwEXIiBR6AWiPaYTAdKCMaPADdFXKsDJMyel 3YNGLcENPiUYD4KyBgRWDnNQYvZGmwWSWuSXW2VNK2KAEmQRHkJY7EEyXsYNYbZUDhDLPcKFJwIYDous 2PTPHoTESxStJ7LqZuHURfTLTuBMqkQYBiKAK4GbXy EBIgFFHzCT7XLiPvDBPjVCG4YRtkSQMoILIhiy4JSTKmFLAtJoV4CDNrAMQdSJKpUEpiDLTbHFL1HWk3 EMZvBTTcNU9QSqVrRIKrOOx1VOkvFAAfXHLpqn0LFAKgGVUbDPwsWwImLSOuHKAgDNi5hkHlrNYtOFi8 RZ0AK7TpwqJzGuCMRg1Oo147LDIcSMYdPq8NU7wrPn 9cZKLcTUCCDb6SGPo1QgOvRoi7HdtbVgc6IMRvHpFeYTDaAjA9FjI1FBLgBER+IDxmZTMyNzhiOGNjNz KkOJN0QkCbSBRnIjclIVhdEvP1Dc9fIRXZUy5+AUdbzYUlvTieCLXWCkE8AUMbFBdvXACFGo0F ID Date Data Source [id number] 10/03/2020 08:47:58 AM EST [facility] Name Value Range Interpretation Code Description Data Jodie rce(s) Supporting Document(s) Progress Note [facility] OMYCCz0iAwAFBaCv88/AESzlSZSql4XuLYekIBw6AIkvIIHmZ8RfMYN5gF5bTQL4CGvMGvMvGcAnZDGf lbm [file] AgICAgICAgICAgICAgICAgICAgICAgICAgICAgICAg ICAgICAgICAgICAgICAgICAgICAgICAgICAgICAgICAgICAgICANCiAgICAgICAgICAgICAgICAgICAg ICAgICAgICAgICAgICAgICAgICAgICAgICAgICAgICAgICAgICAgICAgICAgICAgICAgICAgICAgICAg ICAgICAgICAgICAgICAgICAgICANCiAgICAgICAgIC AgICAgICAgICAgICAgICAgICAgICAgICAgICAgICAgICAgICAgICAgICAgICAgICAgICAgICAgICAgIC AgICAgICAgICAgICAgICAgICAgICAgICAgICAgICANCiAgICAgICAgICAgICAgICAgICAgICAgICAgIC AgICAgICAgICAgICAgICAgICAgICAgICAgICAgICAg ICAgICAgICAgICAgICAgICAgICAgICAgICAgICAgICAgICAgICAgICANCiAgICAgICAgICAgICAgICAg ICAgICAgICAgICAgICAgICAgICAgICAgICAgICAgICAgICAgICAgICAgICAgICAgICAgICAgICAgICAg ICAgICAgICAgICAgICAgICAgICAgICANCiAgICAgIC AgICAgICAgICAgICAgICAgICAgICAgICAgICAgICAgICAgICAgICAgICAgICAgICAgICAgICAgICAgIC AgICAgICAgICAgICAgICAgICAgICAgICAgICAgICAgICANCiAgICAgICAgICAgICAgICAgICAgICAgIC AgICAgICAgICAgICAgICAgICAgICAgICAgICAgICAg ICAgICAgICAgICAgICAgICAgICAgICAgICAgICAgICAgICAgICAgICAgICANCiAgICAgICAgICAgICAg ICAgICAgICAgICAgICAgICAgICAgICAgICAgICAgICAgICAgICAgICAgICAgICAgICAgICAgICAgICAg ICAgICAgICAgICAgICAgICAgICAgICAgICANCiAgIC AgICAgICAgICAgICAgICAgICAgICAgICAgICAgICAgICAgICAgICAgICAgICAgICAgICAgICAgICAgIC AgICAgICAgICAgICAgICAgICAgICAgICAgICAgICAgICAgICANCiAgICAgICAgICAgICAgICAgICAgIC AgICAgICAgICAgICAgICAgICAgICAgICAgICAgICAg ICAgICAgICAgICAgICAgICAgICAgICAgICAgICAgICAgICAgICAgICAgICAgICANCjw/xPIrN5mefYJn zjV3C2reGp6RTg8AZN8xh4SpMYRwPCugmwDjTzuWGmLfXNZvBtaRQxj1BIvtWD1HnUNnU5PmA2KdMMpq RN6JAHMbFROekXGdJYJrQTNzUoB7MVZlOGmwXR6TwC TjMQelLIKtNXOiRxWzXBKjTSVuTHEpJKEaUGNOKMRbONShPnPsDFxkFK6De7RoyBO5HDr+Ft3ZCP5pu6 YtWMdjPFDwTT4pfj1NBBdJQkOmT6KamsL8GFErNQAqXk5AAJZzVBLjnQCvBIPwSKXQZyZtK4FliO55TK ENCj4+FAhjowIcTejPNoNdGIVfe6JcDVn7EX6JXSPs FGf7mDEhULByM3Rsf5IcMc26DAJtHhrcZilhagdfq11nJMw7NMBLZKCndNDzAE0wGG5fQPIrZFAdMyCj FZCYSY1SHOHxUAQrsMUtYMEaXFPXZL4DHZtdGYI8NXBlpzYdtXNhECdyTN7PZJRewpCcLvQpAFZEFNq+ Hz3OCT6jy3EfYZuvUiCzBQ1ysn8SQGgSCrZwB2P0eG YqV9M7GEfoIz6SUGMqPMWzJednDCXLCWupLR1ZNX8dohZ2EH0UrACsRCJdDRFyqNWdRGp0X95wrBTyJZ viWP1DPOY+Manuel+Re2GQKJyYKUyXKThPbCpVURRYnYhX1LtI5VSu9BlQ9LqHA57dZiuvtWtCYcxST0OLF 6gXIDyTNSSGF9YaMIxoX5denGzIQYcMHYVJiCgL07p wZUrYWZzYEZ2CSFqCm2MWVNpU5WwbiBufLsxyaYnIEElRBGMSG4MQAaovoTnwRHvyGomZZ33lUhqOU6R Tp9PJoPsUK0ecn6VeOJrUb2AAPNfFt9UIGCmQZWrQJDyYRM2XGAzWnXtLIitJPItZTDiTTW2OIDyYYWc TG7NNvHqPOSjFlPqZLCkTNIhFLJmel4NXZMoGFVbXI KkHrBvWPYtLQKjZZebAKYtAHFuDSF6RBKwPPRkSQ4DNdJvUJLwKEC5BzAgYKPcRQDkwq6OLNZwONLfES orQQUcFQRsIIIhINyoUNQiNIF6NPWjYFGvNYEeGQ6DKpRmMWUpGHyjUSPgFCFbDVMxjm9FXNVpTUVoNN M7DcSoUAGfDLKyLGezIMJgBOUdYYgcSXQyFIYuUB7B WfSvMSOjUFQzYeWiTLQiXDZkyy7JGZZjMYTrVPGbHRVkSFZoNNUkMKslBFMaAQJ6HvJjLXFbDZZvII0X CyHrYKOhJLY4VIioKQLgMKVkmb4KGYPvPNXxJbs0QFRvJTIiETKgFIbaIHPsFCH9TQQ9UNHhSWUyKG1W AfBpPVZxAQuwMFdfISJaXUKmpd4ZLJQnSVViSEEsTZ FzNKVfENHiQApwPCEqMLU8YIEbHTLmBLPxHR0OMqPjFJKiVZn2BKpjXJWyDVLxxg5JTFLbRZWpANOlMF WjELRbNOIpUZsvUPTbCMRbIcZiOKMaHDIpER2YByHpFBWvQqI2TnWdOBAcXHWuvf3CWDWxOAZuQNkdUw LcXNZmDUCuNBieVATyIXMzAPK5VTZyUVLyJR7ZVvNe UZWfWhV1IJUeLXDdETZvas7IHAJeFMRxNnK4ExCiBAYhPQTkRXwdIITdZADhDunhHFTiQJHwHT5HXaHj YZUaUiT9IFchCUBcCULejn5ALPAqVAKuWHY3ARDjBRZwUYMdBOixWESkIIU0NwPsSOJvUSGxVR1DNcIh XOFkVhYiRpNtFKKoTKQtqz8DnQNneKfpzo5HRMxFXh 2VyCfvVXGaUJewKr6jiAVkEfNnDQXLRf5YnvWsMJUuGGMAITwnMTLpWYy4XsEuRUFtDaVvXiOdBUOqER I4G6IkEsMlWzHcOBbvRbK7CbOiJkDnDqHfHMCoZVQcYwOxTMT6TBZ4SRXiXdEkLAZ+WN5lPAy+Pg0Kc3 OeezQ9qnIdCRcqLBVcYA6XBMQWT9RTNo== ID Date Data Source [id number] 10/01/2020 08:55:00 AM EST [facility] ([facility]) Name Value Range Interpretation Code Description Data Jodie rce(s) Supporting Document(s) Albumin [Mass/volume] in Serum or Plasma 4.1 [facility] ([facility]) Alanine aminotransferase [Enzymatic activity/volume] in Serum or Pl asma 31 [facility] ([facility]) Calcium [Mass/volume] in Serum or Plasma 9.3 [facility] ([facility]) Carbon dioxide, total [Moles/volume] in Serum or Plasma 30 [facility] ([facility]) Chloride [Moles/volume] in Serum or Plasma 103 [facility] ([facility]) Alkaline phosphatase [Enzymatic activity/volume] in Serum or Plasma 7 9 [facility] ([facility]) Potassium [Moles/volume] in Serum or Plasma 3.7 [facility] ([facility]) Protein [Mass/volume] in Serum or Plasma 7.8 [facility] ([facility]) Sodium 138 [facility] Aspartate aminotransferase [Enzymatic activity/volume] in Serum or Plasma 15 [facility] ([facility]) Urea nitrogen [Mass/volume] in Serum or Plasma 9 [facility] ([facility]) Glucose 105 83-110 [facility] Creatinine For GFR 0.69 [facility] ([facility]) ID Date Data Source [facility] Chest, 2 view (PA\\Lat) 10/01/2020 12:00:00 AM EST eCW1 ( Replaced By [facility]) Name Value Range Interpretation Code Description Data Jodie rce(s) Supporting Document(s) [facility] Chest, 2 view (PA\\Lat) eCW 1 (Replaced By [facility]) ID Date Data Source Ser Prot Electro RFX ITS 10/01/2020 12:00:00 AM EST eCW1 ([facility]) Name Value Range Interpretation Code Description Data Jodie rce(s) Supporting Document(s) 59.5 55.8-66.1 ALBUMIN % eCW1 ([facility]) 9.4 7.1-11.8 ZADDF-0-FSPWJPNOX % eCW1 ([facility]) 4.7 2.9-4.9 UYJOS-0-EHBBJGAR % eCW1 ([facility]) 4.7 3.2-6.5 IEEW-2-UOLNXLVEO % eCW1 ([facility]) 6.7 4.7-7.2 JESZ-2-GDVDAIDCH % eCW1 ([facility]) 15.0 11.1-18.8 GAMMA GLOBULIN % eCW1 ([facility]) 0.53 0.28-0.60 KHYP-3-SXSOHMPWV eCW1 ([facility]) 4.70 3.29-5.55 ALBUMIN eCW1 ([facility]) 0.74 0.42-0.99 IOXFA-1-YZKHGKRHP eCW1 ([facility]) 0.37 0.17-0.41 TIJDD-7-YVBTZQMET eCW1 ([facility]) 1.19 0.65-1.58 GAMMA GLOBULINS eCW1 ([facility]) SEE COMMENT SPEP INTERPRETATION FOR RFX eCW1 (Replaced By [facility]) 7.9 6.4-8.2 TOTAL PROTEIN eCW1 (Replaced By [facility]) 0.37 0.19-0.55 TDCQ-7-HOJPTZKLE eCW1 ([facility]) ID Date Data Source RHEUMATOID FACTOR QUANT 10/01/2020 12:00:00 AM EST eCW1 ([facility]) Name Value Range Interpretation Code Description Data Jodie rce(s) Supporting Document(s) < 10.0 <15.0 RHEUMATOID FACTOR QUANT eCW1 ( Replaced By [facility]) ID Date Data Source IMMUNOGLOBULIN G,A,M 10/01/2020 12:00:00 AM EST eCW1 ([facility]) Name Value Range Interpretation Code Description Data Jodie rce(s) Supporting Document(s) 104.0 40-230 IMMUNOGLOBULIN M eCW1 ([facility]) 140.0 70-400 IMMUNOGLOBULIN A eCW1 ([facility]) [phone] IMMUNOGLOBULIN G eCW1 ([facility]) ID Date Data Source CREATININE,RANDOM URINE 10/01/2020 12:00:00 AM EST eCW1 ([facility]) Name Value Range Interpretation Code Description Data Jodie rce(s) Supporting Document(s) 16.7 CREATININE,RANDOM URINE eCW1 ( Replaced By [facility]) ID Date Data Source UA URINALYSIS 10/01/2020 12:00:00 AM EST eCW1 ([facility]) Name Value Range Interpretation Code Description Data Jodie rce(s) Supporting Document(s) UA URINALYSIS eCW1 (Replaced By [facility]) ID Date Data Source TOTAL PROTEIN,RANDOM URINE 10/01/2020 12:00:00 AM EST eCW1 ( Replaced By [facility]) Name Value Range Interpretation Code Description Data Jodie rce(s) Supporting Document(s) < 5.0 0.0-12.0 TOTAL PROTEIN,RANDOM URIN E eCW1 (Replaced By [facility]) ID Date Data Source HEPATITIS C ANTIBODY INDEX 10/01/2020 12:00:00 AM EST eCW1 ( Replaced By [facility]) Name Value Range Interpretation Code Description Data Jodie rce(s) Supporting Document(s) 0.1 <0.8 HEPATITIS C VIRUS RUSTY INDEX eC W1 (Replaced By [facility]) ID Date Data Source HEPATITIS B SURFACE ANTIGEN 10/01/2020 12:00:00 AM EST eCW1 (Replaced By [facility]) Name Value Range Interpretation Code Description Data Jodie rce(s) Supporting Document(s) NEGATIVE NEGATIVE HEPATITIS B SURFACE ANTIG EN eCW1 (Replaced By [facility]) ID Date Data Source C REACTIVE PROTEIN QUANTITATIV (At [facility]) 10/01/2020 12:00 :00 AM EST eCW1 (Replaced By [facility]) Name Value Range Interpretation Code Description Data Jodie rce(s) Supporting Document(s) 0.82 0.00-0.30 C REACTIVE PROTEIN QUANTI TATIV eCW1 (Replaced By [facility]) ID Date Data Source Comprehensive Metabolic Profile (CMP) 10/01/2020 12:00:00 AM EST eCW1 (Replaced By [facility]) Name Value Range Interpretation Code Description Data Jodie rce(s) Supporting Document(s) 105 70-100 GLUCOSE, FASTING eCW1 ([facility]) 138 136-145 SODIUM LEVEL eCW1 ([facility]) > 60.0 >60 GLOMERULAR FILTRATION RATE eCW 1 (Replaced By [facility]) 9 7-18 BLOOD UREA NITROGEN eCW1 ([facility]) 0.69 0.55-1.30 CREATININE FOR GFR eCW1 ([facility]) 3.7 3.5-5.1 POTASSIUM SERUM eCW1 ([facility]) 30 21-32 CARBON DIOXIDE LEVEL eCW1 ([facility]) 103 98-107 CHLORIDE LEVEL eCW1 (Replaced By [facility]) 9.3 8.5-10.1 CALCIUM LEVEL eCW1 (Replaced By [facility]) 0.3 0.2-1.0 BILIRUBIN,TOTAL eCW1 ([facility]) 15 7-37 AST/SGOT eCW1 ([facility]) 79 45-117 ALKALINE PHOSPHATASE eCW1 ([facility]) 31 12-78 ALT/SGPT eCW1 ([facility]) 4.1 3.2-5.2 ALBUMIN eCW1 ([facility]) 7.8 6.4-8.2 TOTAL PROTEIN eCW1 (Replaced By [facility]) 1.1 1.2-2.2 ALBUMIN/GLOBULIN RATIO eCW1 ([facility]) ID Date Data Source [id number] 09/26/2020 08:53:00 AM EST [facility] ([facility]) Name Value Range Interpretation Code Description Data Jodie rce(s) Supporting Document(s) White Blood Count 7.7 5.0-10.0 [facility] ([facility]) Red Blood Count 4.11 4.00-5.40 [facility]) Platelets 304 172-450 [facility]) Hemoglobin 12.4 [facility] ([facility]) Hematocrit 38.3 [facility] ([facility]) ID Date Data Source ESTRADIOL 08/22/2020 10:17:50 AM EDT eCW1 ([facility]) Name Value Range Interpretation Code Description Data Jodie rce(s) Supporting Document(s) 93.5 eCW1 ([facility]) ID Date Data Source FREE T4 & TSH PANEL 08/22/2020 10:17:41 AM EDT eCW1 ([facility]) Name Value Range Interpretation Code Description Data Jodie rce(s) Supporting Document(s) 0.921 eCW1 ([facility]) 0.90 eCW1 ([facility]) ID Date Data Source FSH & LH EVAL 08/22/2020 10:17:35 AM EDT eCW1 ([facility]) Name Value Range Interpretation Code Description Data Jodie rce(s) Supporting Document(s) 3.5 eCW1 ([facility]) 6.7 eCW1 ([facility]) ID Date Data Source TESTOSTERONE FREE & TOTAL 08/22/2020 10:17:27 AM EDT eCW1 ([facility]) Name Value Range Interpretation Code Description Data Jodie rce(s) Supporting Document(s) 3.1 eCW1 ([facility]) 27.0 eCW1 ([facility]) ID Date Data Source CBC - Complete Blood Count 08/22/2020 10:17:20 AM EDT eCW1 ( Replaced By [facility]) Name Value Range Interpretation Code Description Data Jodie rce(s) Supporting Document(s) 42.6 eCW1 ([facility]) 4.50 eCW1 ([facility]) 7.9 eCW1 ([facility]) 13.8 eCW1 ([facility]) 11.9 eCW1 ([facility]) 30.7 eCW1 ([facility]) 32.4 eCW1 ([facility]) 94.7 eCW1 ([facility]) 321 eCW1 ([facility]) ID Date Data Source [id number] 08/22/2020 10:16:50 AM EDT eCW1 ([facility]) Name Value Range Interpretation Code Description Data Jodie rce(s) Supporting Document(s) Hemoglobin A1c/Hemoglobin.total in Blood 5.2 eCW1 (Replaced By [facility]) ID Date Data Source [id number] 07/23/2020 12:00:00 PM EDT [facility] Name Value Range Interpretation Code Description Data Jodie rce(s) Supporting Document(s) SARS coronavirus 2 RNA [facility] This lab was ordered by [facility] and reported by [facility]. ID Date Data Source [id number] 06/18/2020 12:25:[address] [facility] Patient Name: ERYN NAVARRO : 1990 Sex: F Pt Unit #: [id number] Location[facility] Provider: Visit Date/Time: 06/18/20 Primary Insurance: [facility] Secondary Insurance: Self Pay Intake Vital Signs [...] IN PAST YEARS AGO SHE TELLS ME. 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: No working smoke detector in home: [...] Orientation: alert, aw sourav and oriented x3 HENGA Head: normal to inspection and normocephalic Ears: [...] Code(s): N80.9 - Endometriosis, unspecified SNOMED Code(s): 011478690 Category: Medical (3) History of chronic cystitis: Status: Acute Code(s): Z87.448 - Personal history of other diseases of urinary system SNOMED Code(s): 600451162 Category: Medical (4) Pelvic pain: Status: Acute Code(s): R10.2 - Pelvic and perineal pain SNOMED Code(s): 32421865 Category: Medical (5) Educated about management of weight: Status: Acute Comment: has been able to lose on her own;used Phentermine in the past Code(s): Z78.9 - Other specified health status SNOMED Code(s): 362569359 Category: Medical Orders Other Medications: New: phent ermine take 1 tab by mouth daily as directed 37.5 mg PO DAILY 30 tabs 1RF MDD 1 Follow Up: 1 Week (postop) Electronically Signed By: <Electronically signed by Nate Granger II, MD> Date/Time Signed: 06/18/20 1321 Name Value Range Interpretation Code Description Data Jodie rce(s) Supporting Document(s) ID Date Data Source [id number] 05/30/2020 02:35:00 PM EDT [facility] [address] [place] [phone] NAME SEX PT STATUS ACCOUNT NUMBER ERYN NAVARRO LM F REG REF [id number] ORDERING PHYSICIAN LOCATION MEDICAL RECORD NO. Nate Granger II, MD RAD [id number] ATTENDING PHYSICIAN DATE OF DATE OF EXAM/TIME Zabrina Liu RPA 1990 05/30/20 / 1240 TYPE / EXAM Xray Barium enema-SINGLE CONTR REASON FOR EXAM Lower Abdominal Pain COMPARISON: None FINDINGS: Brick Setter Operator radiograph of the abdomen displays an unremarkable [...] Trans Dt/Tm: Trans by: DT Prt Dt/Tm: 1963-2864: Total DLP = 0.00 mGy-cm Fluoroscopy Time (in secs): Name Value Range Interpretation Code Description Data Jodie rce(s) Supporting Document(s) ID Date Data Source [id number] 05/28/2020 11:16:[address] [facility] Patient Name: ERYN NAVARRO LM : 1990 Sex: F Pt Unit #: [id number] Location:[facility] Provider: Visit Date/Time: 05/28/20 Primary Insurance: [facility] Secondary Insurance: Self Pay Intake Vital Signs [...] SEE WHY SHE HAS NOT BEEN CALLED. 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 Code(s): N80.9 - Endometriosis, unspecified SNOMED Code(s): 989479290 Category: Medical Plan - Nate Granger II, MD: SANDIE Additional Comments Additional Comments: given the constant nature of her lower abdominal discomfort and change in bowels will request BaEnema. Orders Follow Up: 3 Weeks Electronically Signed By: <Electronically signed by Nate Granger II, MD> Date/Time Signed: 05/28/20 1345 Name Value Range Interpretation Code Description Data Jodie rce(s) Supporting Document(s) ID Date Data Source [id number] 04/23/2020 01:38:00 PM EDT [facility] [address] [place] [address] [place] [address] [phone] NAME SEX PT STATUS ACCOUNT NUMBER ERYN NAVARRO LM F REG REF [id number] ORDERING PHYSICIAN LOCATION MEDICAL RECORD NO. Nate Granger II, MD [id number] ATTENDING PHYSICIAN DATE OF DATE OF EXAM/TIME [...] 1348 Date Time CC: Alber Ortiz MD; Zarbina Liu Techn: FREST Trans Dt/Tm: Trans by: DT Prt Dt/Tm: 19: Total DLP = 0.00 mGy-cm : Total Radiation Dose = 0.0000 mSv Lifetime Dose: 16.9050 mSv Name Value Range Interpretation Code Description Data Jodie rce(s) Supporting Document(s) ID Date Data Source [id number] 04/02/2020 12:03:[address] [facility] Method of Collection:: Clean Catch Name Value Range Interpretation Code Description Data Jodie rce(s) Supporting Document(s) Color of Urine [facility] Appearance of Urine CLEAR [facility] pH of Urine by Test strip 7.5 5-8 [facility] Specific gravity of Urine by Refractometry 1.007 1.005-1.030 [facility] Leukocyte esterase [Presence] in Urine by Test strip NEGAT JADYN [facility] Nitrite [Presence] in Urine by Test strip NEGATIVE [facility] Protein [Presence] in Urine by Test strip NEGATIVE [facility] Glucose [Mass/volume] in Urine by Automated test strip NEGATIVE NEG ATIVE [facility] Ketones [Presence] in Urine by Test strip NEGATIVE [facility] Urobilinogen [Presence] in Urine 0.2-1 EU/dl [facility] Bilirubin.total [Presence] in Urine by Automated test strip NEGATIVE [facility] Erythrocytes [#/volume] in Urine by Test strip NEGATIVE NEGATIVE [facility] URINE MICROSCOPIC? (CIF) NO [facility] ID Date Data Source [id number] 04/02/2020 10:21:[address] [facility] Patient Name: Eryn Navarro LM : 1990 Sex: F Pt Unit #: [id number] Location:[facility] Provider: Visit Date/Time: 04/02/20 Primary Insurance: [facility] Secondary Insurance: Self Pay Intake Vital Signs [...] PID. SHE ALSO STATES LUPUS.SHE DID SEE [facility] RHEUMATOLOGY. SHE WAS DOING [place] BUT STOPPED IT MONTHS NOW. SHE WONDERS IF SHE SHOULD GO BACK TO IT. SHE WAS TO FOLLOW UP WITH THEM IN FEBRUARY GOT R/S D/T COVID. SHE ALSO STATESTHAT WANTED TO HAVE HER BACK IN AUGUST BUT THAT ALSO GOT CANCELED D/T COVID SHE HAS NO CURRENT APPTPER [facility]. SHE WAS RECENTLY IN ER FOR STOMACH [...] TO CHECK ON THESE ANOMALIES FROM CT. 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: No Is patient in pain?: Yes (STOMACH) Pain scale (1-10): 2 Allergies Sulfa (Lopez lfonamide Antibiotics) Allergy (Severe, Verified 04/02/20 13:54) COULD NOT BREATH SEASONAL ALLERGIES Allergy (Unknown, Verified 04/02/20 13:54) Is last menstrual period known: No Post menopausal: No Patient : No Fall Risk Gait/Transferring:: Normal HIV Testing Offer - ages 13-64 Requirement for HIV testing offer been met?: Declines today. 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: No working smoke detector in home: [...] Code(s): E06.3 - Autoimmune thyroiditis SNOMED Code(s): 87972390 Category: Medical (3) ISRAEL positive: Status: Acute SNOMED Code(s): 045590046 Category: Medical (4) Weight gain, abnormal: Status: Acute Comment: +/- 40 LBS IN 4 MONTHS Code(s): R63.5 - Abnormal weight gain SNOMED Code(s): 472340575 Category: Medical (5) Polycystic ovaries: Status: Chronic Comment: LABS IN THE PAST WERE NOT SUFFICIENT FOR MAKING DIAGNOSIS SNOMED Code(s): 593484338 Category: Medical Orders Other Medications: New: metformin [...] rce(s) Supporting Document(s) ID Date Data Source [id number] 03/19/2020 06:23:00 PM EDT [facility] [address] [place] [address] [phone] NAME SEX PT STATUS ACCOUNT NUMBER Eryn Navarro LM [facility] [id number] ORDERING PHYSICIAN LOCATION MEDICAL RECORD NO. Emiliano Delarosa MD ER [id number] ATTENDING PHYSICIAN DATE OF DATE OF EXAM/TIME [...] rce(s) Supporting Document(s) ID Date Data Source [id number] 03/19/2020 06:18:[address] [facility] Reason for ordering culture: Abnormal fi ndings UAMethod of Collection:: Voided Name Value Range Interpretation Code Description Data Jodie rce(s) Supporting Document(s) Color of Urine [facility] Appearance of Urine CLEAR [facility] pH of Urine by Test strip 7.0 5-8 [facility] Specific gravity of Urine by Refractometry 1.009 1.005-1.030 [facility] Leukocyte esterase [Presence] in Urine by Test strip NEGAT JADYN [facility] Nitrite [Presence] in Urine by Test strip NEGATIVE [facility] Protein [Presence] in Urine by Test strip NEGATIVE [facility] Glucose [Mass/volume] in Urine by Automated test strip NEGATIVE NEG ATIVE [facility] Ketones [Presence] in Urine by Test strip NEGATIVE [facility] Urobilinogen [Presence] in Urine 0.2-1 EU/dl [facility] Bilirubin.total [Presence] in Urine by Automated test strip NEGATIVE [facility] Erythrocytes [#/volume] in Urine by Test strip NEGATIVE NEGATIVE [facility] URINE MICROSCOPIC? (CIF) NO [facility] ID Date Data Source [id number] 03/19/2020 05:39:[address] [facility] @ DID THE CONTROL BAND APPEAR? YES@ DID THE BACKGROUND CLEAR? YES Name Value Range Interpretation Code Description Data Jodie rce(s) Supporting Document(s) Choriogonadotropin [Moles/volume] in Serum or Plasma NEGATIVE NEGAT JADYN [facility] @Reenter manual test result: NEGATIVE@by Irena Laura at 03/19/20 1739. ID Date Data Source [id number] 03/19/2020 05:19:[address] [facility] Name Value Range Interpretation Code Description Data Jodie rce(s) Supporting Document(s) Leukocytes [#/volume] in Blood by Automated count 7.9 10*3/uL 4.45-[address] [facility] Erythrocytes [#/volume] in Blood by Automated count 4.36 10*6/uL 4.20 -5.[address] [facility] Hemoglobin [Moles/volume] in Blood 13.5 g/dL 10.7-15.[address] [facility] Hematocrit [Volume Fraction] of Blood by Automated count 40.2 % 3 7-[address] [facility] Erythrocyte mean corpuscular volume [Ent itic volume] in Cord blood by Automated count 92.2 fL 80-96 N [facility] ital Erythrocyte mean corpuscular hemoglobin [Entitic mass] by Automated count 31.0 pg 27-31 [facility] E[facility]rocyte mean corpuscular hemoglobin concentration [Mass/volume] in Cord blood 33.6 g/dL 33-37 N [facility] ital Erythrocyte distribution width [Entitic volume] by Automated count 12 % 11-[address] [facility] Platelets [#/volume] in Blood by Automated count 282 10*3/uL 130-[address] [facility] Platelet mean volume [Entitic volume] in Blood 9.6 fL 9.1-13.[address] [facility] Neutrophils/100 leukocytes in Blood by Automated count 50.8 % 41- [address] [facility] Neutrophils [#/volume] in Blood by Automated count 4.0 U 1.7-7.[address] [facility] Lymphocytes/100 leukocytes in Blood by Automated count 32.7 % 14- [address] [facility] Lymphocytes [#/volume] in Blood by Automated count 2.6 U 0.6-4.[address] [facility] Monocytes/100 leukocytes in Blood by Automated count 8.1 % 4-[address] [facility] Monocytes [#/volume] in Blood by Automated count 0.6 U 0.2-1.[address] [facility] Eosinophils/100 leukocytes in Blood by Automated count 7.4 % 0-[address] [facility] Eosinophils [#/volume] in Blood by Automated count 0.6 U 0.0-0.[address] [facility] Basophils/100 leukocytes in Blood by Automated count 0.5 % 0.4-[address] [facility] Basophils [#/volume] in Blood by Automated count 0.0 U 0.0-0.[address] [facility] NUCLEATED RED BLOOD CELL 0 % [facility] NUCLEATED RED BLOOD CELL# 0 U [facility] Immature granulocytes [Presence] in Blood by Automated count 0-[address] [facility] Immature granulocytes [#/volume] in Blood by Automated count 0.0 U 0-0.[address] [facility] Manual Differential panel - Blood NO [facility] ID Date Data Source [id number] 03/19/2020 05:38:[address] [facility] Name Value Range Interpretation Code Description Data Jodie rce(s) Supporting Document(s) Urea nitrogen [Mass/volume] in Serum or Plasma 8 mg/dL 9-[address] [facility] Sodium [Moles/volume] in Serum or Plasma 140 mmol/L 132-146 [facility] Potassium [Moles/volume] in Serum or Plasma 3.7 mmol/L 3.5-5.5 [facility] Chloride [Moles/volume] in Serum or Plasma 108 mmol/L 99-109 [facility] Carbon dioxide, total [Moles/volume] in Serum or Plasma 27 mmol/L 20 -[address] [facility] Anion gap in Serum or Plasma 9 mmol/L 8-[address] [facility] Glucose [Mass/volume] in Serum or Plasma 96 mg/dL 74-106 [facility] Creatinine 0.7 mg/dL 0.5-1.1 [facility] Glomerular filtration rate/1.73 sq M.pre dicted [Volume Rate/Area] in Serum or Plasma Greater Than [address] [facility] Alanine aminotransferase [Enzymatic acti vity/volume] in Serum or Plasma by With P-5'-P 49 U/L 10-49 N [facility] ital Aspartate aminotransferase [Enzymatic ac tivity/volume] in Serum or Plasma by With P-5'-P 30 U/L 0-33 N [facility] pital Alkaline phosphatase [Enzymatic activity/volume] in Serum or Plasma 71 U/L 45-[address] [facility] Calcium [Mass/volume] in Serum or Plasma 9.5 mg/dL 8.5-10.[address] [facility] Bilirubin.total [Mass/volume] in Serum or Plasma 0.5 mg/dL 0.3-1.[address] [facility] Albumin [Mass/volume] in Serum or Plasma by Bromocresol purple (BCP) dye binding method 4.0 g/dL 3.2-4.8 N [facility] ital Protein [Mass/volume] in Serum or Plasma 7.4 g/dL 5.7-8.[address] [facility] ID Date Data Source [id number] 03/19/2020 05:38:[address] [facility] Name Value Range Interpretation Code Description Data Jodie rce(s) Supporting Document(s) Amylase [Enzymatic activity/volume] in Serum or Plasma 70 U/L 30- [address] [facility] ID Date Data Source [id number] 03/19/2020 05:38:[address] [facility] Name Value Range Interpretation Code Description Data Jodie rce(s) Supporting Document(s) Lipase [Enzymatic activity/volume] in Serum or Plasma 112 U/L 73-[address] [facility] ID Date Data Source [id number] 03/19/2020 05:03:[address] [facility] ED Physician Documentation NAME: Eryn Navarro BRITTANIE : 1990 AGE: 30 MR#: [id number] SERVICE DATE: 03/19/[address]: Emiliano Delarosa [...] % (Auto) 50.8, Lymph % (Auto) 32.7, Rogers % (Auto) 8.1, Eos % (Auto) 7.4 [...] Appearance Clear, Urine pH 7.0, Ur Specific [place] 1.009,Urine Protein Negative, Urine Ketones Negative, Urine [...] rce(s) Supporting Document(s) ID Date Data Source [id number] 03/07/2020 12:17:[address] [facility] Method of Collection:: Clean Catch Name Value Range Interpretation Code Description Data Jodie rce(s) Supporting Document(s) Color of Urine [facility] Appearance of Urine CLEAR [facility] pH of Urine by Test strip 7.0 5-8 [facility] Specific gravity of Urine by Refractometry 1.003 1.005 -1.030 Abnormal (applies to non-numeric results) [facility] Leukocyte esterase [Presence] in Urine by Test strip NEGAT JADYN [facility] Nitrite [Presence] in Urine by Test strip NEGATIVE [facility] Protein [Presence] in Urine by Test strip NEGATIVE [facility] Glucose [Mass/volume] in Urine by Automated test strip NEGATIVE NEG ATIVE [facility] Ketones [Presence] in Urine by Test strip NEGATIVE [facility] Urobilinogen [Presence] in Urine 0.2-1 EU/dl [facility] Bilirubin.total [Presence] in Urine by Automated test strip NEGATIVE [facility] Erythrocytes [#/volume] in Urine by Test strip NEGATIVE NEGATIVE [facility] URINE MICROSCOPIC? (CIF) NO [facility] ID Date Data Source [id number] 03/07/2020 09:56:[address] [facility] Patient Name: Eryn Navarro Lm : 1990 Sex: F Pt Unit #: [id number] Location:[facility] Provider: Visit Date/Time: 03/07/20 Primary Insurance: [facility] Secondary Insurance: Self Pay Intake Vital Signs [...] the pain is from thator something else. 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 SP DESC: IUD CULTURENO ANAEROBIC ORGANIS MS ISOLATED Name Value Range Interpretation Code Description Data Jodie rce(s) Supporting Document(s) Bacteria identified in Genital specimen by Aerobe culture SP DESC: IUD CULTURE [facility] No N. Gonorrhoaea isolatedFEW Staph Spp. coag neg ID Date Data Source [id number] 02/04/2020 08:17:[address] [facility] SP DESC: IUD CULTURENO ANAEROBIC ORGANIS MS ISOLATED Name Value Range Interpretation Code Description Data Jodie rce(s) Supporting Document(s) ID Date Data Source [id number] 02/01/2020 11:03:[address] [facility] Patient Name: ERYN NAVARRO LM : 1990 Sex: F Pt Unit #: [id number] Location:[facility] Provider: Visit Date/Time: 02/01/20 Primary Insurance: [facility] Secondary Insurance: Self Pay ADDENDUM Labs: 01/22/2020: [...] procedure. IUD removed and replaced with Mirena, [facility] #: [id number], lot #: [id number], exp: 01/2022. Remove by 01/31/2025. 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 Patient Name: ERYN NAVARRO LM : 1990 Sex: F Pt Unit #: [id number] Location:[facility] Provider: Visit Date/Time: 01/29/20 Primary Insurance: [facility] Secondary Insurance: Self Pay Intake Vital Signs [...] on 01/22/2020. Pt's PAP is still pending. 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 Marito Bosch MD [id number] ATTENDING PHYSICIAN DATE OF DATE OF EXAM/TIME [...] rce(s) Supporting Document(s) ID Date Data Source [id number] 01/30/2020 07:47:[address] [facility] LAST MENSTRUAL PERIOD [id number] on Technique: BRUSH-SPATULAPATIENT INFORMATION: IUDPREVIOUS CYTOLOGY: NEGATIVEDATES AND RESULTS: 2018 pap negativePREVIOUS TREATMENT: NONEBody Site: CERVIX Name Value Range Interpretation Code Description Data Jodie rce(s) Supporting Document(s) Microscopic observation [Identifier] in Cervix by Cyto stain.thin pre p [facility] ID Date Data Source [id number] 01/24/2020 06:06:[address] [facility] NegativeNegativePerformed at: [facility] [address] [id number] Director: Shanell Kyle MD, Phone: [phone] @01/22/20 1658: UA W/ MICRO added. RFLXG = UMIC CIF.Method of Collection:: Clean Catch @01/22/20 1728: Urine culture added. RFL XG = CULT.ADD. @01/22/20 1658: UA W/ MICRO added. RFLXG = UMIC CIF.Method of Collection:: Clean Catch Name Value Range Interpretation Code Description Data [facility] rce(s) Supporting Document(s) Trichomonas vaginalis DNA [Presence] in Unspecified specimen by Probe and target amplification method Negative [facility] Performed at: [facility] [address]rera[address] [place] [id number] Director: Shanell Kyle MD, Phone: [phone] Gardnerella vaginalis rRNA [Presence] in Genital specimen by DNA probe Negative [facility] [place] sp rRNA [Presence] in Vaginal fluid by DNA probe N egative [facility] ID Date Data Source [id number] 01/24/2020 06:06:[address] [facility] NegativeNegativePerformed at: [facility] [address] [id number] Director: Shanell Kyle MD, Phone: [phone] @01/22/20 1658: UA W/ MICRO added. RFLXG = UMIC CIF.Method of Collection:: Clean Catch @01/22/20 1728: Urine culture added. RFL XG = CULT.ADD. @01/22/20 1658: UA W/ MICRO added. RFLXG = UMIC CIF.Method of Collection:: Clean Catch Name Value Range Interpretation Code Description Data Jodie rce(s) Supporting Document(s) ID Date Data Source [id number] 01/22/2020 05:28:[address] [facility] NegativeNegativePerformed at: [facility] - [facility] [address] [id number] Director: Shanell Kyle MD, Phone: [phone] @01/22/20 1658: UA W/ MICRO added. RFLXG = UMIC CIF.Method of Collection:: Clean Catch @01/22/20 1728: Urine culture added. RFL XG = CULT.ADD. @01/22/20 1658: UA W/ MICRO added. RFLXG = UMIC CIF.Method of Collection:: Clean Catch Name Value Range Interpretation Code Description Data [facility] rce(s) Supporting Document(s) Color of Urine [facility] Appearance of Urine CLEAR [facility] pH of Urine by Test strip 6.5 5-8 [facility] Specific gravity of Urine by Refractometry 1.006 1.005-1.030 [facility] Leukocyte esterase [Presence] in Urine by Test strip NEGATIVE Abnormal (applies to non-numeric results) [facility] MICRO!!!!A Culture has been added to this specimen per established criteria Nitrite [Presence] in Urine by Test strip NEGATIVE [facility] Protein [Presence] in Urine by Test strip NEGATIVE [facility] Glucose [Mass/volume] in Urine by Automated test strip NEGATIVE NEG ATIVE [facility] Ketones [Presence] in Urine by Test strip NEGATIVE [facility] Urobilinogen [Presence] in Urine 0.2-1 EU/dl [facility] Bilirubin.total [Presence] in Urine by Automated test strip NEGATIVE [facility] Erythrocytes [#/volume] in Urine by Test strip NEGATIVE NEGATIVE [facility] URINE MICROSCOPIC? (CIF) Microscopic Added [facility] ID Date Data Source [id number] 01/23/2020 01:46:[address] [facility] NegativeNegativePerformed at: [facility] or[address] [id number] Director: Shanell Kyle MD, Phone: [phone] @01/22/20 1658: UA W/ MICRO added. RFLXG = UMIC CIF.Method of Collection:: Clean Catch @01/22/20 1728: Urine culture added. RFL XG = CULT.ADD. @01/22/20 1658: UA W/ MICRO added. RFLXG = UMIC CIF.Method of Collection:: Clean Catch Name Value Range Interpretation Code Description Data Jodie rce(s) Supporting Document(s) Bacteria identified in Urine by Culture [facility] ID Date Data Source [id number] 01/22/2020 05:28:[address] [facility] NegativeNegativePerformed at: [facility] [address] [id number] Director: Shanell Kyle MD, Phone: [phone] @01/22/20 1658: UA W/ MICRO added. RFLXG = UMIC CIF.Method of Collection:: Clean Catch @01/22/20 1728: Urine culture added. RFL XG = CULT.ADD. @01/22/20 1658: UA W/ MICRO added. RFLXG = UMIC CIF.Method of Collection:: Clean Catch Name Value Range Interpretation Code Description Data Jodie rce(s) Supporting Document(s) Leukocytes [#/volume] in Urine by Manual count 8-12 /hpf 0-[address] [facility] Cells [Type] in Urine sediment by Light microscopy [facility] Bacteria [Presence] in Urine sediment by Light microscopy NEGATIVE Above high normal [facility] ID Date Data Source [id number] 01/22/2020 02:37:[address] [facility] Patient Name: ERYN NAVARRO LM : 1990 Sex: F Pt Unit #: [id number] Location:[facility] Provider: Visit Date/Time: 01/22/20 Primary Insurance: [facility] Secondary Insurance: Self Pay Intake Vital Signs [...] after that but her sx have returned. 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 For the past 1 week has [...] Unspecified ovarian cyst, left side SNOMED Code(s): 627121282 Category: Medical Plan - Marito Bosch MD: 1. Cystic ovarian mass in adnexa, predominantly in left adnexa into the midline. 2. Rule out ovarian cyst. 3. Pelvic sonogramTV/AB. Orders Other Orders: Orders: PAP w HPV-Genotype if Positive 01/22/20 Z12.4 Follow Up: 1 Week Electronically Signed By: <Electronically signed by Marito Bosch MD> Date/Time Signed: 01/23/20 1076 Name Value Range Interpretation Code Description Data Jodie rce(s) Supporting Document(s) ID Date Data Source [id number] 11/05/2019 01:57:00 PM [facility] [address] [place] [address] [phone] NAME SEX PT STATUS ACCOUNT NUMBER ERYN NAVARRO LM REG REF [id number] ORDERING PHYSICIAN LOCATION MEDICAL RECORD NO. Davide López DO [id number] ATTENDING PHYSICIAN DATE OF DATE OF EXAM/TIME [...] Trans Dt/Tm: Trans by: DT Prt Dt/Tm: [id number]: Total DLP = 0.00 mGy-cm 5795-0519: Total Radiation Dose = 0.0000 mSv Lifetime Dose: 0 mSv Name Value Range Interpretation Code Description Data Jodie rce(s) Supporting Document(s) ID Date Data Source [id number] 11/01/2019 02:10:00 PM [facility] Name Value Range Interpretation Code Description Data Jodie rce(s) Supporting Document(s) Hemoglobin A1c % 5.3 % 4.0-6.[address] [facility] The following ranges may be u sed for interpretation of results: HGBA1C degree of glucose control: Greater than 8%: Action Suggested * Less than 7%: Goal of Diabetic Therapy Less than 6%: NormalFactors such as duration of diabetes, adherence to therapyand the age of the patient should also be considered inassessing the degree of blood glucose control.* High risk of developing halfway complications such asretinopathy, nephropathy, neuropathy, cardiopathy, etc. Some danger of hypoglycemic reaction in Type I diabetics.Some glucose intolerant individuals and "Sub Clinical"diabetics may demonstrate HGBA1C levels in this area. Glucose mean value [Moles/volume] in Blood Estimated f rom glycated hemoglobin 105 mg/dL [facility] An A1C of 7% - the goal of diabetic ther apy - is equivalentto an EAG of 154 mg/dl. ID Date Data Source [id number] 11/01/2019 02:17:00 PM [facility] Name Value Range Interpretation Code Description Data Jodie rce(s) Supporting Document(s) Follitropin [Units/volume] in Serum or Plasma 5.9 [iU]/L [facility] FSH REFERENCE RANGE IU/L Males Ages 13 - 70 yrs 1.4 - 18.1 Normally Menstruating Females Follicular Phase 2.5 - 10.2 Mid-Cycle Peak 3.4 - 33.4 Luteal Phase 1.5 - 9.1 Post-menopausal Females 23.0 - 116.3 Less Than 0.3 ID Date Data Source [id number] 11/02/2019 08:06:00 PM [facility] Name Value Range Interpretation Code Description Data Jodie rce(s) Supporting Document(s) Testosterone 41 ng/dL 8-48 [facility] Free Testosterone (Direct) 8.5 pg/mL 0.0-4.[address] [facility] Performed at: RN - [facility] [id number] [id number] Director: Shanell Kyle MD, Phone: [phone] ID Date Data Source 11/01/2019 02:17:00 PM [facility] Name Value Range Interpretation Code Description Data Jodie rce(s) Supporting Document(s) Lutropin [Units/volume] in Serum or Plasma 7.8 [iU]/L [facility] LH REFERENCE RANGE IU/L Males 20 - 70yrs 1.5 - 9.3 Greater than 70yrs 3.1 - 34.6 Normally Menstruating Females Follicular Phase 1.9 - 12.5 Mid-Cycle Peak 8.7 - 76.3 Luteal Phase 0.5 - 16.9 Postmenopausal Females 15.9 - 54.0 Less Than 0.1 - 1.5 Contraceptives 0.7 - 5.6 Children Less Than 0.1 - 6.0 ID Date Data Source [id number] 11/01/2019 02:17:00 PM [facility] Name Value Range Interpretation Code Description Data Jodie rce(s) Supporting Document(s) Prolactin [Mass/volume] in Serum or Plasma 4.3 ng/mL [facility] PROLACTIN REFERENCE RANGE ng/mL Males 2.1 - 17.7 Females Non 2.8 - 29.2 9.7 - 208.5 Postmenopausal 1.8 - 20.3 ID Date Data Source [id number] 11/01/2019 02:17:00 PM [facility] Name Value Range Interpretation Code Description Data Jodie rce(s) Supporting Document(s) Thyroxine (T4) free [Mass/volume] in Serum or Plasma 0.91 ng/dL 0.89- 1.[address] [facility] ID Date Data Source [id number] 11/01/2019 02:17:00 PM [facility] Name Value Range Interpretation Code Description Data Jodie rce(s) Supporting Document(s) Thyrotropin [Units/volume] in Serum or Plasma by Detec tion limit <= 0.005 mIU/L 0.72 u[iU]/mL 0.35-5.50 [facility] ID Date Data Source [id number] 11/02/2019 08:06:00 PM [facility] [facility] Name Value Range Interpretation Code Description Data Jodie rce(s) Supporting Document(s) Trichomonas vaginalis DNA [Presence] in Unspecified specimen by Probe and target amplification method Negative [facility] Performed at: RN - [facility] [place] [id number] Director: Shanell Kyle MD, Phone: [phone] Gardnerella vaginalis rRNA [Presence] in Genital specimen by DNA probe Negative [facility] [place] sp rRNA [Presence] in Vaginal fluid by DNA probe N egative [facility] ID Date Data Source [id number] 11/01/2019 12:01:00 PM [facility] Patient Name: ERYN NAVARRO LM : 1990 Sex: F Pt Unit #: [id number] Location[facility] Provider: Visit Date/Time: 11/01/19 Primary Insurance: [facility] Secondary Insurance: Self Pay Intake Vital Signs [...] Obtained a urine. 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 Method of Collection:: Clean Catch Name Value Range Interpretation Code Description Data Jodie rce(s) Supporting Document(s) Color of Urine [facility] Appearance of Urine CLEAR [facility] pH of Urine by Test strip 7.0 5-8 [facility] Specific gravity of Urine by Refractometry 1.006 1.005-1.030 [facility] Leukocyte esterase [Presence] in Urine by Test strip NEGAT JADYN [facility] Nitrite [Presence] in Urine by Test strip NEGATIVE [facility] Protein [Presence] in Urine by Test strip NEGATIVE [facility] Glucose [Mass/volume] in Urine by Automated test strip NEGATIVE NEG ATIVE [facility] Ketones [Presence] in Urine by Test strip NEGATIVE [facility] Urobilinogen [Presence] in Urine 0.2-1 EU/dl [facility] Bilirubin.total [Presence] in Urine by Automated test strip NEGATIVE [facility] Erythrocytes [#/volume] in Urine by Test strip NEGATIVE NEGATIVE [facility] URINE MICROSCOPIC? (CIF) NO [facility] Procedure Social History Code Duration Value Status Description Data Source(s ) Smoking 12/09/2020 12:00:00 AM EST Never Smoker completed Never S moker eCW1 (Replaced By [facility]) Alcohol intake 12/04/2020 12:00:00 AM EST Yes completed [facility] Smoking 12/04/2020 12:00:00 AM EST Never smoker completed Never s [facility] 11/17/2020 02:46:00 PM EST No completed No [facility] 11/17/2020 02:46:00 PM EST No completed No [facility] 11/17/2020 02:46:00 PM EST Never smoker completed Never s [facility] Smoking 11/17/2020 02:46:00 PM EST Never smoker completed Never s [facility] Alcohol intake 11/15/2020 12:00:00 AM EST Yes completed [facility] Smoking 11/15/2020 12:00:00 AM EST Never smoker completed Never s [facility] Smoking 10/24/2020 12:00:00 AM EST Patient has never smoked co mpleted Patient has never smoked [facility] ([facility]) Smoking 10/01/2020 12:00:00 AM EST Never Smoker completed Never S moker eCW1 (Replaced By [facility]) Smoking 10/01/2020 12:00:00 AM EST Never Smoker completed Never S moker eCW1 (Replaced By [facility]) Alcohol intake 09/30/2020 12:00:00 AM EST Current non-d petra of alcohol (finding) completed Current non-drinker of alcohol (finding) [facility] Tobacco use and exposure 09/30/2020 12:00:00 AM EST Never used co mpleted Never used [facility] Smoking 09/30/2020 12:00:00 AM EST Never smoker completed Never s [facility] Smoking 09/11/2020 12:00:00 AM EDT Never Smoker completed Never S moker eCW1 (Replaced By [facility]) Smoking 09/11/2020 12:00:00 AM EDT Never Smoker completed Never S moker eCW1 (Replaced By [facility]) Smoking 09/03/2020 12:00:00 AM EDT Never Smoker completed Never S moker eCW1 (Replaced By [facility]) 04/02/2020 11:27:00 AM EDT No completed [facility] 04/02/2020 11:27:00 AM EDT No completed No [facility] 03/19/2020 04:36:00 PM EDT Never smoker completed Never s [facility] Smoking 03/19/2020 04:36:00 PM EDT Never smoker completed Never s [facility] 03/19/2020 04:36:00 PM EDT Never smoker completed Never s [facility] Smoking 03/19/2020 04:36:00 PM EDT Never smoker completed Never s [facility] 03/19/2020 04:36:00 PM EDT Never smoker completed Never s [facility] Smoking 03/19/2020 04:36:00 PM EDT Never smoker completed Never s [facility] 03/19/2020 04:36:00 PM EDT Never smoker completed Never s [facility] Smoking 03/19/2020 04:36:00 PM EDT Never smoker completed Never s [facility] 03/07/2020 10:25:00 AM EDT No completed [facility] 03/07/2020 10:25:00 AM EDT No completed [facility] Vital Signs ID Date Data Source UNK Name Value Range Interpretation Code Description Data Source(s) Diastolic blood pressure 72 mm[Hg] 72 mm[Hg] eCW1 (Replaced By [facility]) Systolic blood pressure 128 mm[Hg] 128 mm[Hg] e CW1 (Replaced By [facility]) Respiratory rate 18 /min 18 /min eCW1 ([facility]) Heart rate 71 /min 71 /min eCW1 ([facility]) Body mass index (BMI) [Ratio] 38.03 kg/m2 38.03 kg/m2 eCW1 (Replaced By [facility]) Body height 64 [in_i] 64 [in_i] eCW1 ([facility]) Body weight 221.6 [lb_av] 221.6 [lb_av] eCW1 ([facility]) Body mass index (BMI) [Ratio] 37.08 kg/m2 37.08 kg/m2 [facility] Body weight 97.977 kg 97.977 kg [facility] Body height 162.6 cm 162.6 cm [facility] Oxygen saturation in Arterial blood by Pulse oximetry 97 % 97 % [facility] Body mass index (BMI) [Ratio] 38.11 kg/m2 38.11 kg/m2 [facility] Body weight 100.699 kg 100.699 kg [facility] Body height 162.6 cm 162.6 cm [facility] Heart rate 72 /min 72 /min [facility] Diastolic blood pressure 90 mm[Hg] 90 mm[Hg] [facility] Systolic blood pressure 130 mm[Hg] 130 mm[Hg] [facility] Diastolic blood pressure--sitting 93 mm[Hg] 93 mm[Hg] [facility] ([facility]) [place], large cuff/Ra Systolic blood pressure--sitting 130 mm[Hg] 130 mm[Hg] [facility] ([facility]) [place], large cuff/Ra Heart rate 70 /min 70 /min [facility] ([facility]) Body mass index (BMI) [Ratio] 37.4 kg/m2 37.4 k g/m2 [facility] ([facility]) Body height 64 [in_i] 64 [in_i] [facility]) 5'4" Body weight 218.00 [lb_av] 218.00 [lb_av] MEDEN T ([facility]) Diastolic blood pressure 70 mm[Hg] 70 mm[Hg] eCW1 (Replaced By [facility]) Systolic blood pressure 132 mm[Hg] 132 mm[Hg] e CW1 (Replaced By [facility]) Body temperature 97.8 [degF] 97.8 [degF] eCW1 ( Replaced By [facility]) Respiratory rate 18 /min 18 /min eCW1 ([facility]) Heart rate 97 /min 97 /min eCW1 ([facility]) Body mass index (BMI) [Ratio] 37.00 kg/m2 37.00 kg/m2 eCW1 (Replaced By [facility]) Body height 64 [in_i] 64 [in_i] eCW1 ([facility]) Body weight 97.7 kg 97.7 kg eCW1 ([facility]) Body weight 215.6 [lb_av] 215.6 [lb_av] eCW1 ([facility]) Diastolic blood pressure 78 mm[Hg] 78 mm[Hg] eCW1 (Replaced By [facility]) Systolic blood pressure 132 mm[Hg] 132 mm[Hg] e CW1 (Replaced By [facility]) Body mass index (BMI) [Ratio] 37.24 kg/m2 37.24 kg/m2 eCW1 (Replaced By [facility]) Body height 64 [in_i] 64 [in_i] eCW1 ([facility]) Body weight 217 [lb_av] 217 [lb_av] eCW1 ([facility]) Diastolic blood pressure 80 mm[Hg] 80 mm[Hg] eCW1 (Replaced By [facility]) Systolic blood pressure 130 mm[Hg] 130 mm[Hg] e CW1 (Replaced By [facility]) Body mass index (BMI) [Ratio] 36.93 kg/m2 36.93 kg/m2 eCW1 (Replaced By [facility]) Body height 64 [in_i] 64 [in_i] eCW1 ([facility]) Body weight 97.61 kg 97.61 kg eCW1 ([facility]) Body weight 215.2 [lb_av] 215.2 [lb_av] eCW1 ([facility]) Diastolic blood pressure 78 mm[Hg] 78 mm[Hg] eCW1 (Replaced By [facility]) Systolic blood pressure 130 mm[Hg] 130 mm[Hg] e CW1 (Replaced By [facility]) Body mass index (BMI) [Ratio] 36.9 kg/m2 36.9 k g/m2 eCW1 (Replaced By [facility]) Body height 64 [in_i] 64 [in_i] eCW1 ([facility]) Body weight 215 [lb_av] 215 [lb_av] eCW1 ([facility]) Diastolic blood pressure 88 mm[Hg] 88 mm[Hg] [place] ([facility]) Systolic blood pressure 136 mm[Hg] 136 mm[Hg] [place] ([facility]) Oxygen saturation in Arterial blood by Pulse oximetry 98 % 98 % [place] ([facility]) Body temperature 97.9 [degF] 97.9 [degF] [facility] ([facility]) Respiratory rate 18 /min 18 /min [place] ([facility]) Heart rate rhythm 1 1 [place] ([facility]) Heart rate 75 /min 75 /min [place] ([facility]) ID Date Data Source [id number] 10/07/2020 10:03:57 AM [facility] Name Value Range Interpretation Code Description Data Source(s) WEIGHT RECORDED 218 lb 218 lb [facility] Body height Measured 64.02 in 64.02 in [facility] Patient Treatment Plan of Care Planned Activity Planned Date Details Description Data Source (s) Aspirin 81 MG Delayed Release Oral Tablet 10/23/2020 12:00:00 AM [facility] Amoxicillin 500 MG Oral Capsule 12/29/2019 12:00:00 AM [facility] ([facility]) Fluconazole 150 MG Oral Tablet [Diflucan] 12/29/2019 12:00:00 AM [facility] ([facility]) Cyclobenzaprine hydrochloride 5 MG Oral Tablet 10/03/2019 12:00:00 AM [facility] Fluconazole 150 MG Oral Tablet [Diflucan] 09/25/2019 12:00:00 AM [facility] ([facility]) Amoxicillin 500 MG Oral Capsule 09/25/2019 12:00:00 AM [facility]) Levonorgestrel 0.503476 MG/HR Drug Implant [facility] Levothyroxine Sodium 0.025 MG Oral Tablet [facility]
== END 2020-12-19 02:33 | disposition left against medical advice (07) ==
LOC: M ED 21:04
DX: Z53.21 Procedure and treatment not carried out due to patient leaving prior to being seen by health care provider (principal)

== ENCOUNTER 2020-12-19 10:26 | Emergency (ER) | payer OTHER ==
[~2020-12-19] VITALS: Ht 162.6 cm; Wt 102.6 kg
[~2020-12-19 10:26] MED LIST changes: +ASPI-1 PO; +TOPI50TA9
--- OUTSIDE RECORDS SUMMARY | 2020-12-19 10:35 | CCD ---
Author Author [facility] Organization [facility] Address Unknown Phone Unavailable Care Team Providers Care Signal Maintainer Helper Name Role Phone Granger II, Luis Miguel [...] Unavailable Breslau, Davide DO Unavailable Unavailable Breslau, Daivde DO Unavailable Unavailable Breslau, Davide DO Unavailable [...] Unavailable Unavailable LYNETTE REED MD Unavailable Unavailable LYNTETE REED MD Unavailable Unavailable LYNETTE REED MD [...] Unavailable LYNETTE REED MD Unavailable Unavailable LYNETTE ERED MD Unavailable Unavailable LYNETTE REED MD Unavailable [...] COLLINS SANCHEZ MD Unavailable Unavailable Simon MARTINEZ CORE MACHINE OPERATOR-OFFICE CLINICIAN-C Unavailable Unava ilable KOPIDLANSKYSimon CORE MACHINE OPERATOR-OFFICE CLINICIAN-C Unavailable Unava ilable KOPIDLRIKKIKYSimon CORE MACHINE OPERATOR-OFFICE CLINICIAN-C Unavailable Unava ilable KOPIDLANSKYSimon CORE MACHINE OPERATOR-OFFICE CLINICIAN-C Unavailable Unava ilable KOPIDLANSKYSimon CORE MACHINE OPERATOR-OFFICE CLINICIAN-C Unavailable Unava ilable KOPIDLANSKYSimon CORE MACHINE OPERATOR-OFFICE CLINICIAN-C Unavailable Unava ilable KOPIDLANSKYSimon CORE MACHINE OPERATOR-OFFICE CLINICIAN-C Unavailable Unava ilable KOPIDLRIKKIKYSimonIE CORE MACHINE OPERATOR-OFFICE CLINICIAN-C Unavailable Unava ilable KOPIDLANSKY, Simon HOLLAND CORE MACHINE OPERATOR-OFFICE CLINICIAN-C Unavailable Unava ilable KOPIDLANSKY, Simon HOLLAND CORE MACHINE OPERATOR-OFFICE CLINICIAN-C Unavailable Unava ilable KOPIDLANSKY, Simon HOLLAND CORE MACHINE OPERATOR-OFFICE CLINICIAN-C Unavailable Unava ilable KOPIDLANSKY, Simon HOLLAND APRN-OFFICE CLINICIAN-C Unavailable Unava ilable KOPIDLANSKY, Simon HOLLAND CORE MACHINE OPERATOR-OFFICE CLINICIAN-C Unavailable Unava ilable KOPIDLANSKY, Simon HOLLAND CORE MACHINE OPERATOR-OFFICE CLINICIAN-C Unavailable Unava ilable KOPIDLANSKY, Simon HOLLAND CORE MACHINE OPERATOR-OFFICE CLINICIAN-C Unavailable Unava ilable KOPIDLANSKY, Simon HOLLAND APRN-OFFICE CLINICIAN-C Unavailable Unava ilable KOPIDLANSKY, Simon HOLLAND CORE MACHINE OPERATOR-OFFICE CLINICIAN-C Unavailable Unava ilable KOPIDLANSKY, Simon HOLLAND APRN-OFFICE CLINICIAN-C Unavailable Unava ilable KOPIDLANSKY, Simon HOLLAND CORE MACHINE OPERATOR-OFFICE CLINICIAN-C Unavailable Unava ilable KOPIDLANSKY, Simon HOLLAND CORE MACHINE OPERATOR-OFFICE CLINICIAN-C Unavailable Unava ilable KOPIDLANSKY, Simon HOLLAND CORE MACHINE OPERATOR-OFFICE CLINICIAN-C Unavailable Unava ilable KOPIDLANSKY, Simon HOLLAND CORE MACHINE OPERATOR-OFFICE CLINICIAN-C Unavailable Unava ilable Granger II, Luis Miguel [...] D Abner PA Unavailable Unavailable Tao, D Anber PA Unavailable Unavailable Tao, D Abner PA [...] is protected by Article 27-F of the [facility] Public Health law. If you continue you may have access to information: Regarding HIV / AIDS; Provided by facilities licensed or operated by the [facility] Office of Mental Health; or Provided by the [facility] Office for People With Developmental Disabilities. If such information is present, then the following [facility] mandated warning applies: This information has been [...] law may result in a fine or long term sentence or both. A general authorization for the release of medical or other information is NOT sufficient authorization for further disc losure. Allergies and Adverse Reactions Type Description Substance Reaction Status Data Source(s ) Propensity to adverse reactions NICKEL nickel sulfate Active [facility] Propensity to adverse reactions adhesives Propensity to adverse reactions rash Active eCW1 ([facility]) Propensity to adverse reactions adhesives Propensity to adverse reactions rash Active eCW ([facility]) Propensity to adverse reactions adhesives Propensity to adverse reactions rash Active [facility] ([facility]) Propensity to adverse reactions adhesives Propensity to ad verse reactions Unknown Active eCW ([facility]) Propensity to adverse reactions adhesives Propensity to ad verse reactions Unknown Active eCW ([facility]) Propensity to adverse reactions adhesives Propensity to ad verse reactions Unknown Active eCW ([facility]) Drug allergy Sulfa (Sulfonamide Antibiotics) Sulfa (Sulfonami de Antibiotics) [facility] BREATH [facility] SEASONAL ALLERGIES SEASONAL ALLERGIES [facility] Family History Family Member Name Family Member Gender Family Member Status Date o f Status Description Data Source(s) Unknown Condition [facility] Unknown Condition [facility] Unknown Condition [facility] Unknown Condition [facility] Unknown Condition [facility] Unknown Condition [facility] Unknown Condition [facility] Unknown Condition [facility] Unknown Condition [facility] Unknown Condition [facility] Condition [facility] Unknown Condition [facility] Unknown Condition [facility] Unknown Condition [facility] Unknown Condition [facility] Unknown Condition [facility] Unknown Condition [facility] Unknown Condition [facility] Unknown Condition [facility] Unknown Condition [facility] Unknown Condition [facility] Unknown Condition [facility] Unknown Condition [facility] Unknown Condition [facility] Unknown Condition [facility] Unknown [facility] Unknown Condition [facility] Unknown Condition [facility] Unknown Condition [facility] Unknown Condition [facility] Unknown Condition [facility] Unknown Condition [facility] Unknown Condition [facility] Encounters Encounter Providers Location Date Indications Data Source(s ) Outpatient Attender: SABINE ERED MD 01/12/2021 12:00:00 A M [facility] Office Visit Attender: MORGAN DOBBS MD Main office - [facility] 12/09/2020 12:30:00 PM EST MEDENT ([facility], ) Outpatient [address] [place] [address], [facility] [address] 12/09/2020 12:00:00 AM EST eCW1 ([facility]) Outpatient Attender: BASIA MULLEN MD [id number] 12/04/2020 12:00:00 AM EST [facility] Outpatient Attender: Chelo Chambers MDAdmitter: Chelo wheeler MD [email or web address] 11/28/2020 08:34:22 AM [facility] Outpatient Attender: ERYN MICHELLE 11/25/2020 07:30:00 AM EST D73.5,E06.3 [facility] D73.5,E06.3 Outpatient Attender: ERYN FISCHER CReferrer: Zabrina CAREY 11/19/2020 08:20:00 AM EST - 11/19/2020 09:50:00 AM EST [facility] Outpatient Attender: BASIA MULLEN MD [email or web address] [id number] 12:00:00 AM EST - 11/12/2020 04:21:28 PM EST [facility] Attender: LUKE CARREON MD Main Office 10/24/2020 07:45:00 AM EST MEDENT ([facility]) Outpatient Attender: SABINE REED MD [id number] 10/08/2020 12:0 0:00 AM EST Systemic lupus erythematosus, unspecified [facility] Systemic lupus erythematosus, unspecifie d Outpatient Attender: SABINE REED MD [id number] 10/01/2020 12:0 0:00 AM EST Systemic lupus erythematosus, unspecified [facility] Systemic lupus erythematosus, unspecifie d Outpatient [address] [facility] [id number] 10/01/2020 12:00:00 AM EST eCW1 [facility] [address] [facility] [place] [address] 09/12/2020 12:00:00 AM EDT eCW1 ([facility]) Postop visit [address] [facility] [place] [address] 09/03/2020 12:00:00 AM EDT eCW1 ([facility]) Unknown [address] [facility] [place] [address] 09/02/2020 12:00:00 AM EDT eCW1 ([facility]) Outpatient Attender: Taryn Ecnarnacion MDReferrer: Nate Olmos rd II 08/20/2020 12:00:00 AM T [facility] Postop visit [address] [facility] [place] [address] 08/15/2020 12:00:00 AM EDT eCW1 ([facility]) Preadmit Attender: Nate Granger II 07/02/2020 0 7:30:00 AM EDT R10.2,N80.9/DIAGNOSTIC LAPAROSCOPY [id number] [facility] R10.2,N80.9/DIAGNOSTIC LAPAROSCOPY [id number] Outpatient Attender: Nate Granger IIReferrer: Zabrina CAREY 06/18/2020 11:48:00 AM EDT - 06/18/2020 12:57:00 PM EDT [facility] Outpatient Attender: Nate Granger II 05/30/2020 0 1:16:00 PM EDT CHANGE IN BOWEL HABITS,R10.2,R19.4 [facility] CHANGE IN BOWEL HABITS,R10.2,R19.4 Outpatient Attender: Nate Granger IIReferrer: Zabrina CAREY 05/28/2020 11:05:00 AM EDT - 05/28/2020 11:51:00 AM EDT [facility] Outpatient Attender: Nate Granger II 04/23/2020 1 1:58:00 AM EDT OVARIAN CYST [facility] OVARIAN CYST Outpatient Attender: Nate Granger II 04/02/2020 11:34:0 0 AM EDT R10.2 [facility] R10.2 Outpatient Attender: Nate Granger IIReferrer: Zabrina CAREY 04/02/2020 10:02:00 AM EDT - 04/02/2020 11:29:00 AM EDT [facility] Emergency Attender: Emiliano Delarosa MD 04/2020 04:29:00 PM EDT - 03/19/2020 06:39:00 PM EDT [facility] Patient discharged. Outpatient Attender: Marito Bosch MD 03/07/2020 12:05:0 0 PM EDT [facility] Outpatient Attender: Marito Bosch MDReferrer: Zabrina CAREY 03/07/2020 09:56:00 AM EDT - 03/07/2020 10:27:00 AM EDT [facility] Outpatient Attender: Marito Bosch MD 02/01/2020 11:30:0 0 AM EDT Z30.432 [facility] Z30.432 Outpatient Attender: Marito Bosch MDReferrer: Zabrina CAREY 02/01/2020 10:55:00 AM EDT - 02/01/2020 11:51:00 AM EDT [facility] Outpatient Attender: Zev Figueroa DOReferrer: Zabrina CAREY 01/29/2020 02:03:00 PM EDT - 01/29/2020 02:42:00 PM EDT [facility] Outpatient Attender: Marito Bosch MD 01/22/2020 0 3:43:00 PM EDT PELVIC PAIN,R10.2,Z12.4 [facility] PELVIC PAIN,R10.2,Z12.4 Outpatient Attender: Marito Bosch MDReferrer: Zabrina CAREY 01/22/2020 02:30:00 PM EDT - 01/22/2020 03:38:00 PM EDT [facility] Outpatient<td ID="encounterTypeDescripti [email or web address]">urgent visit</td><td>Abner Burger PA-C</td><td>[facility]</td><td>12/29/2019</td><td><content ID="[email or web address]">Otitis Media</content></td> Attender: Abner CAREY [facility] 12/29/2019 11:35:00 AM EST - 12/29/2019 11:59:00 PM EST Otitis [facility] [place] ([facility]) Otitis Media CLINIC [id number] 12/27/2019 06:46:29 AM EST [facility] Attender: COLLINS SANCHEZ MDReferrer: Nate Olmos rd II [id number] 12/24/2019 12:00:00 AM EST [facility] Outpatient Attender: Nate Granger II 11/05/2019 1 2:24:00 PM EST PELVIC PAIN [facility] PELVIC PAIN Outpatient Attender: Davide López DO 11/01/2019 12:49:00 PM EST R30.9,R10.2,N89.8,R79.89 [facility] R30.9,R10.2,N89.8,R79.89 Outpatient Attender: Davide Burriserrer: Zabrina CAREY 11/01/2019 11:39:00 AM EST - 11/01/2019 12:38:00 PM EST [facility] Immunizations Vaccine Date Status Description Data Source(s) Pneumococcal conjugate PCV 13 05/07/2020 12:00:00 AM EDT complet ed pneumococcal conjugate PCV 13 [facility] Medications Medication Brand Name Start Date Product Form Dose Route Admi nistrative Instructions Pharmacy Instructions Status Indications Reaction Description Data Source(s) topiramate 25 MG Oral Tablet [Topamax] Topamax 12/09/2020 12:00:00 A M EST active [facility] ([facility]) 25 mg 12/09/2020 12:00:00 [...] 12/09/2020 12:00:00 AM EST ORAL active [facility] ([facility]) Aspirin 81 MG Chewable Tablet Aspirin ([facility]) 81 mg tablet,chewable Aspirin ([facility] Aspirin) 81 mg tablet,chewable 11/19/2020 08:35:43 AM EST 81 MG active [facility] 150 mg 11/19/2020 12:00:00 AM EST [...] AM EST Oral active Take by mouth [facility] Aspirin 81 MG Delayed Release Oral Tablet Aspirin 10/23/2020 1 2:00:00 AM EST ORAL active [facility] ([facility]) Levothyroxine Sodium 0.025 MG Oral Tablet Levothyroxine Sodi um 10/23/2020 12:00:00 AM EST ORAL active M [facility] ([facility]) 800 mg 07/28/2020 12:00:00 AM EDT tablet 30 TAKE ONE TABLET BY MOUTH THREE TIMES A DAY FOR PAIN TAKE ONE TABLET BY MOUTH THREE TIMES A DAY FOR PAIN SO LD: 07/29/2020 [facility] 100 mg 07/28/2020 12:00:00 AM EDT capsule 14 TAKE ONE CAPSULE BY MOUTH EVERY 12 HOURS TAKE ONE CAPSULE BY MOUTH EVERY 12 HOURS SOLD: 07/29/2020 [facility] 5-325 mg 07/28/2020 12:00:00 AM EDT tablet 20 TAKE ONE TABLET BY MOUTH EVERY 4 HOURS NEEDED FOR MILD/MODERATE PAIN (SCORE OF 1-7) MAXIMUM DAILY DOSE = SIX TABLETS TAKE ONE TABLET BY MOUTH EVERY 4 HOURS A S NEEDED FOR MILD/MODERATE PAIN (SCORE OF 1-7) MAXIMUM DAILY DOSE = SIX TABLETS SOLD: 07/29/2020 [facility] Phentermine Hydrochloride 37.5 MG Oral Tablet Phentermine 06/18/2020 01:26:11 PM EDT 37.5 MG [facility] Phentermine Hydrochloride 37.5 MG Oral Tablet Phentermine 06/18/2020 01:04:10 PM EDT 37.5 MG [facility] 37.5 mg 06/18/2020 12:00:00 AM EDT tablet 30 TAKE ONE TABLET BY MOUTH EVERY DAY FOR WEIGHT MANAGEMENT MAXIMUM DAILY DOSE = ONE TABLET TAKE ONE TABLET BY MOUTH EVERY DAY FOR WEIGHT MANAGEMENT MAXIMUM DAILY DOSE = ONE TABLET SOLD: 06/18/2020 [facility] 37.5 mg 06/18/2020 12:00:00 AM EDT [...] 12:59:19 PM E DT 25 MCG active [facility] Levothyroxine Sodium 0.025 MG Oral Table t Levothyroxine (Synthroid) 25 mcg tablet Levothyroxine (Synthroid) 25 mcg tablet 04/02/2020 12:59:19 PM E DT 25 MCG active [facility] Levothyroxine Sodium 0.025 MG Oral Table t Levothyroxine (Synthroid) 25 mcg tablet Levothyroxine (Synthroid) 25 mcg tablet 04/02/2020 12:59:19 PM E DT 25 MCG completed [facility] Cimetidine 800 MG Oral Tablet Cimetidine 04/02/2020 12:58:39 PM EDT 800 MG completed [facility] Cimetidine 800 MG Oral Tablet Cimetidine 04/02/2020 12:58:39 PM EDT 800 MG completed [facility] Cimetidine 800 MG Oral Tablet Cimetidine 04/02/2020 12:58:39 PM EDT 800 MG completed [facility] 24 HR Metformin hydrochloride 750 MG Extended Release Oral T ablet Metformin 04/02/2020 12:57:59 PM EDT 1500 MG active [facility] 24 HR Metformin hydrochloride 750 MG Extended Release Oral T ablet Metformin 04/02/2020 12:57:59 PM EDT 1500 MG completed [facility] 24 HR Metformin hydrochloride 750 MG Extended Release Oral T ablet Metformin 04/02/2020 12:57:59 PM EDT 1500 MG active [facility] 25 mcg 04/02/2020 12:00:00 AM EDT [...] 03/07/2020 10:46:43 AM EDT 150 MG completed [facility] Fluconazole 150 MG Oral Tablet Fluconazole 03/07/2020 10:46:43 AM EDT 150 MG completed [facility] Fluconazole 150 MG Oral Tablet Fluconazole (Diflucan) 150 mg tablet Fluconazole (Diflucan) 150 mg tablet 03/07/2020 10:46:43 AM EDT 150 MG completed [facility] Fluconazole 150 MG Oral Tablet Fluconazole (Diflucan) 150 mg tablet Fluconazole (Diflucan) 150 mg tablet 03/07/2020 10:46:43 AM EDT 150 MG completed [facility] Fluconazole 150 MG Oral Tablet Fluconazole 03/07/2020 10:46:43 AM EDT 150 MG completed [facility] Metronidazole 500 MG Oral Tablet Metronidazole 03/07/2020 10:46:08 AM EDT 500 MG completed [facility] Metronidazole 500 MG Oral Tablet Metronidazole (Flagyl ) 500 mg tablet Metronidazole (Flagyl) 500 mg tablet 03/07/2020 10:46:08 AM EDT 500 MG completed [facility] Metronidazole 500 MG Oral Tablet Metronidazole (Flagyl ) 500 mg tablet Metronidazole (Flagyl) 500 mg tablet 03/07/2020 10:46:08 AM EDT 500 MG completed [facility] Metronidazole 500 MG Oral Tablet Metronidazole (Flagyl ) 500 mg tablet Metronidazole (Flagyl) 500 mg tablet 03/07/2020 10:46:08 AM EDT 500 MG completed [facility] Metronidazole 500 MG Oral Tablet Metronidazole 03/07/2020 10:46:08 AM EDT 500 MG completed [facility] doxycycline hyclate 100 MG Oral Capsule Doxycycline Hyclate Doxycycline Hyclate 03/07/2020 10:45:22 AM EDT 100 MG completed [facility] doxycycline hyclate 100 MG Oral Capsule Doxycycline Hyclate Doxycycline Hyclate 03/07/2020 10:45:22 AM EDT 100 MG completed [facility] doxycycline hyclate 100 MG Oral Capsule Doxycycline Hyclate Doxycycline Hyclate 03/07/2020 10:45:22 AM EDT 100 MG completed [facility] doxycycline hyclate 100 MG Oral Capsule Doxycycline Hyclate Doxycycline Hyclate 03/07/2020 10:45:22 AM EDT 100 MG completed [facility] doxycycline hyclate 100 MG Oral Capsule Doxycycline Hyclate Doxycycline Hyclate 03/07/2020 10:45:22 AM EDT 100 MG [facility] 500 mg 03/07/2020 12:00:00 AM EDT tablet [...] IF NEEDED SOLD: 03/07/2020 [facility] Levonorgestrel 0.690750 MG/HR Drug Implant Levonorgestrel 02/01/2020 11:57:05 AM EDT 20 MCG active [facility] Levonorgestrel 0.787819 MG/HR Drug Impla nt Levonorgestrel (Mirena) 20 mcg/24 hours (5 yrs) 52 mg intrauterine device Levonorgestrel (Mirena) 20 mcg/24 hours (5 yrs) 52 mg intrauterine device 02/01/2020 11:57:05 AM EDT 20 MCG active [facility] Levonorgestrel 0.876207 MG/HR Drug Impla nt Levonorgestrel (Mirena) 20 mcg/24 hours (5 yrs) 52 mg intrauterine device Levonorgestrel (Mirena) 20 mcg/24 hours (5 yrs) 52 mg intrauterine device 02/01/2020 11:57:05 AM EDT 20 MCG active [facility] Levonorgestrel 0.754621 MG/HR Drug Implant Levonorgestrel 02/01/2020 11:57:05 AM EDT 20 MCG active [facility] Levonorgestrel 0.325241 MG/HR Drug Implant Levonorgestrel 02/01/2020 11:57:05 AM EDT completed [facility] Levonorgestrel 0.068581 MG/HR Drug Impla nt Levonorgestrel (Mirena) 20 mcg/24 hours (5 yrs) 52 mg intrauterine device Levonorgestrel (Mirena) 20 mcg/24 hours (5 yrs) 52 mg intrauterine device 02/01/2020 11:57:05 AM EDT 20 MCG completed [facility] meloxicam 15 MG Oral Tablet Meloxicam Meloxicam 02/01/2020 11:54 :25 AM EDT 15 MG active [facility] meloxicam 15 MG Oral Tablet Meloxicam (Mobic) 15 mg ta blet Meloxicam (Mobic) 15 mg tablet 02/01/2020 11:54:25 AM EDT 15 MG completed [facility] meloxicam 15 MG Oral Tablet Meloxicam Meloxicam 02/01/2020 11:54 :25 AM EDT 15 MG active [facility] meloxicam 15 MG Oral Tablet Meloxicam (Mobic) 15 mg ta blet Meloxicam (Mobic) 15 mg tablet 02/01/2020 11:54:25 AM EDT 15 MG completed [facility] meloxicam 15 MG Oral Tablet Meloxicam Meloxicam 02/01/2020 11:54 :25 AM EDT 15 MG active [facility] meloxicam 15 MG Oral Tablet Meloxicam (Mobic) 15 mg ta blet Meloxicam (Mobic) 15 mg tablet 02/01/2020 11:54:25 AM EDT 15 MG completed [facility] Fluconazole 150 MG Oral Tablet Fluconazole (Diflucan) 150 mg tablet Fluconazole (Diflucan) 150 mg tablet 02/01/2020 11:53:42 AM EDT 150 MG completed [facility] Fluconazole 150 MG Oral Tablet Fluconazole 02/01/2020 11:53:42 AM EDT 150 MG completed [facility] Fluconazole 150 MG Oral Tablet Fluconazole 02/01/2020 11:53:42 AM EDT 150 MG completed [facility] Fluconazole 150 MG Oral Tablet Fluconazole 02/01/2020 11:53:42 AM EDT 150 MG completed [facility] Fluconazole 150 MG Oral Tablet Fluconazole (Diflucan) 150 mg tablet Fluconazole (Diflucan) 150 mg tablet 02/01/2020 11:53:42 AM EDT 150 MG completed [facility] Fluconazole 150 MG Oral Tablet Fluconazole (Diflucan) 150 mg tablet Fluconazole (Diflucan) 150 mg tablet 02/01/2020 11:53:42 AM EDT 150 MG completed [facility] doxycycline hyclate 100 MG Oral Tablet Doxycycline Hyclate D oxycycline Hyclate 02/01/2020 11:53:14 AM EDT 100 MG completed [facility] doxycycline hyclate 100 MG Oral Tablet Doxycycline Hyclate D oxycycline Hyclate 02/01/2020 11:53:14 AM EDT 100 MG completed [facility] doxycycline hyclate 100 MG Oral Tablet Doxycycline Hyclate D oxycycline Hyclate 02/01/2020 11:53:14 AM EDT 100 MG completed [facility] doxycycline hyclate 100 MG Oral Tablet Doxycycline Hyclate D oxycycline Hyclate 02/01/2020 11:53:14 AM EDT 100 MG completed [facility] doxycycline hyclate 100 MG Oral Tablet Doxycycline Hyclate D oxycycline Hyclate 02/01/2020 11:53:14 AM EDT 100 MG completed [facility] doxycycline hyclate 100 MG Oral Tablet Doxycycline Hyclate D oxycycline Hyclate 02/01/2020 11:53:14 AM EDT 100 MG completed [facility] 15 mg 02/01/2020 12:00:00 AM EDT [...] 01/24/2020 09:27:00 AM EDT 150 MG completed [facility] Fluconazole 150 MG Oral Tablet Fluconazole (Diflucan) 150 mg tablet Fluconazole (Diflucan) 150 mg tablet 01/24/2020 09:27:00 AM EDT 150 MG completed [facility] Fluconazole 150 MG Oral Tablet Fluconazole 01/24/2020 09:27:00 AM EDT 150 MG completed [facility] Fluconazole 150 MG Oral Tablet Fluconazole 01/24/2020 09:27:00 AM EDT 150 MG active [facility] Fluconazole 150 MG Oral Tablet Fluconazole 01/24/2020 09:27:00 AM EDT 150 MG completed [facility] Fluconazole 150 MG Oral Tablet Fluconazole (Diflucan) 150 mg tablet Fluconazole (Diflucan) 150 mg tablet 01/24/2020 09:27:00 AM EDT 150 MG [facility] 150 MG Oral Tablet Fluconazole 01/24/2020 09:27:00 AM EDT 150 MG completed [facility] Fluconazole 150 MG Oral Tablet Fluconazole 01/24/2020 09:27:00 AM EDT 150 MG active [facility] Ciprofloxacin 500 MG Oral Tablet Ciprofloxacin Hcl Ciproflox acin Hcl 01/24/2020 09:24:50 AM EDT 500 MG completed [facility] Ciprofloxacin 500 MG Oral Tablet Ciprofloxacin Hcl (Ci pro) 500 mg tablet Ciprofloxacin Hcl (Cipro) 500 mg tablet 01/24/2020 09:24:50 AM EDT [address] [facility] Ciprofloxacin 500 MG Oral Tablet Ciprofloxacin Hcl Ciproflox acin Hcl 01/24/2020 09:24:50 AM EDT 500 MG [facility] Ciprofloxacin 500 MG Oral Tablet Ciprofloxacin Hcl Ciproflox acin Hcl 01/24/2020 09:24:50 AM EDT 500 MG active [facility] Ciprofloxacin 500 MG Oral Tablet Ciprofloxacin Hcl Ciproflox acin Hcl 01/24/2020 09:24:50 AM EDT 500 MG [facility] Ciprofloxacin 500 MG Oral Tablet Ciprofloxacin Hcl (Ci pro) 500 mg tablet Ciprofloxacin Hcl (Cipro) 500 mg tablet 01/24/2020 09:24:50 AM EDT [address] [facility] Ciprofloxacin 500 MG Oral Tablet Ciprofloxacin Hcl (Ci pro) 500 mg tablet Ciprofloxacin Hcl (Cipro) 500 mg tablet 01/24/2020 09:24:50 AM EDT [address] [facility] [facility] Ciprofloxacin 500 MG Oral Tablet Ciprofloxacin Hcl Ciproflox acin Hcl 01/24/2020 09:24:50 AM EDT 500 MG active [facility] 500 mg 01/24/2020 12:00:00 AM EDT tablet [...] Multivitamin 01/22/2020 02:45:17 PM EDT 1 TAB [facility] Multivitamin 01/22/2020 02:45:17 PM EDT 1 TAB [facility] Multivitamin 01/22/2020 02:45:17 PM EDT 1 TAB comp [facility] Multivitamin 01/22/2020 02:45:17 PM EDT 1 TAB [facility] Multivitamin 01/22/2020 02:45:17 PM EDT 1 TAB comp [facility] Multivitamin 01/22/2020 02:45:17 PM EDT 1 TAB comp [facility] Multivitamin 01/22/2020 02:45:17 PM EDT 1 TAB [facility] Multivitamin 01/22/2020 02:45:17 PM EDT 1 TAB [facility] Multivitamin 01/22/2020 02:45:17 PM EDT 1 TAB [facility] 5 mg 01/20/2020 12:00:00 AM EST tablet [...] active Amoxicil gurinder 500 MG Oral Capsule [place] ([facility]) Fluconazole 150 MG Oral Tablet [Diflucan] Diflucan 150 MG Oral Tablet Diflucan 150 MG Oral Tablet 12/29/2019 12:00:00 AM EST active Fluconazole 150 MG Oral Tablet [Diflucan] [facility]) Fluconazole 150 MG Oral Tablet Fluconazole 11/05/2019 11:00:50 AM EST 150 MG completed [facility] Fluconazole 150 MG Oral Tablet Fluconazole 11/05/2019 11:00:50 AM EST 150 MG completed [facility] Fluconazole 150 MG Oral Tablet Fluconazole 11/05/2019 11:00:50 AM EST 150 MG completed [facility] Fluconazole 150 MG Oral Tablet Fluconazole 11/05/2019 11:00:50 AM EST 150 MG completed [facility] Fluconazole 150 MG Oral Tablet Fluconazole 11/05/2019 11:00:50 AM EST 150 MG completed [facility] Fluconazole 150 MG Oral Tablet Fluconazole 11/05/2019 11:00:50 AM EST 150 MG completed [facility] Fluconazole 150 MG Oral Tablet Fluconazole 11/05/2019 11:00:50 AM EST 150 MG completed [facility] Fluconazole 150 MG Oral Tablet Fluconazole 11/05/2019 11:00:50 AM EST 150 MG completed [facility] Fluconazole 150 MG Oral Tablet Fluconazole 11/05/2019 11:00:50 AM EST 150 MG completed [facility] 150 mg 11/05/2019 12:00:00 AM EST tablet 1 TAKE 1 TABLET BY MOUTH FOR SINGLE DOSE TAKE 1 TABLET BY MOUTH FOR SINGLE DOSE SOLD: 11/05/2019 [facility] Amoxicillin 875 MG / Clavulanate 125 MG Oral Tablet Am oxicillin-Pot Clavulanate Amoxicillin-Pot Clavulanate 11/01/2019 12:33:30 PM EST 1 TAB [facility] Amoxicillin 875 MG / Clavulanate 125 MG Oral Tablet Am oxicillin-Pot Clavulanate Amoxicillin-Pot Clavulanate 11/01/2019 12:33:30 PM EST 1 TAB [facility] Amoxicillin 875 MG / Clavulanate 125 MG Oral Tablet Am oxicillin-Pot Clavulanate Amoxicillin-Pot Clavulanate 11/01/2019 12:33:30 PM EST 1 TAB [facility] Amoxicillin 875 MG / Clavulanate 125 MG Oral Tablet Am oxicillin-Pot Clavulanate Amoxicillin-Pot Clavulanate 11/01/2019 12:33:30 PM EST 1 TAB [facility] Amoxicillin 875 MG / Clavulanate 125 MG Oral Tablet Amoxicillin-Pot Clavulanate (Augmentin) 875-125 mg tablet Amoxicillin-Pot Clavulanate (Augmentin) 875-125 mg tablet 11/01/2019 12:33:30 PM EST 1 TAB [facility] Amoxicillin 875 MG / Clavulanate 125 MG Oral Tablet Amoxicillin-Pot Clavulanate (Augmentin) 875-125 mg tablet Amoxicillin-Pot Clavulanate (Augmentin) 875-125 mg tablet 11/01/2019 12:33:30 PM EST 1 TAB completed [facility] Amoxicillin 875 MG / Clavulanate 125 MG Oral Tablet Am oxicillin-Pot Clavulanate Amoxicillin-Pot Clavulanate 11/01/2019 12:33:30 PM EST 1 TAB completed [facility] Amoxicillin 875 MG / Clavulanate 125 MG Oral Tablet Amoxicillin-Pot Clavulanate (Augmentin) 875-125 mg tablet Amoxicillin-Pot Clavulanate (Augmentin) 875-125 mg tablet 11/01/2019 12:33:30 PM EST 1 TAB completed [facility] Amoxicillin 875 MG / Clavulanate 125 MG Oral Tablet Am oxicillin-Pot Clavulanate Amoxicillin-Pot Clavulanate 11/01/2019 12:33:30 PM EST 1 TAB completed [facility] Metronidazole 500 MG Oral Tablet Metronidazole 11/01/2019 12:33:17 PM EST 500 MG [facility] Metronidazole 500 MG Oral Tablet Metronidazole 11/01/2019 12:33:17 PM EST 500 MG completed [facility] Metronidazole 500 MG Oral Tablet Metronidazole 11/01/2019 12:33:17 PM EST 500 MG [facility] Metronidazole 500 MG Oral Tablet Metronidazole 11/01/2019 12:33:17 PM EST 500 MG [facility] Metronidazole 500 MG Oral Tablet Metronidazole 11/01/2019 12:33:17 PM EST 500 MG [facility] Metronidazole 500 MG Oral Tablet Metronidazole 11/01/2019 12:33:17 PM EST 500 MG [facility] Metronidazole 500 MG Oral Tablet Metronidazole 11/01/2019 12:33:17 PM EST 500 MG [facility] Metronidazole 500 MG Oral Tablet Metronidazole 11/01/2019 12:33:17 PM EST 500 MG [facility] Metronidazole 500 MG Oral Tablet Metronidazole 11/01/2019 12:33:17 PM EST 500 MG [facility] 875-125 mg 11/01/2019 12:00:00 AM EST tablet 14 TAKE ONE TABLET BY MOUTH TWICE A DAY TAKE ONE TABLET BY MOUTH TWICE A DAY SOLD: 11/01/2019 [facility] 500 mg 11/01/2019 12:00:00 AM EST tablet 14 TAKE ONE TABLET BY MOUTH TWICE A DAY FOR 7 DAYS TAKE ONE TABLET BY MOUTH TWICE A DAY FOR 7 DAYS SOLD: 11/01/2019 [employer] Cyclobenzaprine hydrochloride 5 MG Oral Tablet Cyclobenzaprine HCl 5 MG Oral Tablet (FLEXERIL) Cyclobenzaprine HCl 5 MG Oral Tablet (FLEXERIL) 2018 12:00:00 AM EST 5 mg Oral active Take 1 tablet by mouth nightly as needed for Muscle spasms [facility] Amoxicillin 500 MG Oral Capsule Amoxicillin 500MG Oral Capsule Amoxicillin 500MG Oral Capsule 09/25/2019 12:00:00 AM EST 1 abor lorraine Amoxicillin 500 MG Oral Capsule [place] ([facility]) Fluconazole 150 MG Oral Tablet [Diflucan] Diflucan 150 MG Oral Tablet Diflucan 150MG Oral Tablet 09/25/2019 12:00:00 AM EST aborted Fluconazole 150 MG Oral Tablet [Diflucan] [place] ([facility]) Levothyroxine Sodium 0.025 MG Oral Tablet Levothyroxine 09/06/2019 04:02:49 PM EDT 25 MCG completed [facility] Levothyroxine Sodium 0.025 MG Oral Tablet Levothyroxine 09/06/2019 04:02:49 PM EDT 25 MCG completed [facility] Levothyroxine Sodium 0.025 MG Oral Tablet Levothyroxine 09/06/2019 04:02:49 PM EDT 25 MCG completed [facility] Levothyroxine Sodium 0.025 MG Oral Table t Levothyroxine (Synthroid) 25 mcg tablet Levothyroxine (Synthroid) 25 mcg tablet 09/06/2019 04:02:49 PM E DT 25 MCG completed [facility] Levothyroxine Sodium 0.025 MG Oral Tablet Levothyroxine 09/06/2019 04:02:49 PM EDT 25 MCG completed [facility] Levothyroxine Sodium 0.025 MG Oral Tablet Levothyroxine 09/06/2019 04:02:49 PM EDT 25 MCG completed [facility] Levothyroxine Sodium 0.025 MG Oral Table t Levothyroxine (Synthroid) 25 mcg tablet Levothyroxine (Synthroid) 25 mcg tablet 09/06/2019 04:02:49 PM E DT 25 MCG completed [facility] Levothyroxine Sodium 0.025 MG Oral Table t Levothyroxine (Synthroid) 25 mcg tablet Levothyroxine (Synthroid) 25 mcg tablet 09/06/2019 04:02:49 PM E DT 25 MCG completed [facility] Levothyroxine Sodium 0.025 MG Oral Tablet Levothyroxine 09/06/2019 04:02:49 PM EDT 25 MCG completed [facility] Levonorgestrel 0.049099 MG/HR Drug Implant Levonorgestrel 09/06/2019 02:53:14 PM EDT completed [facility] Levonorgestrel 0.313466 MG/HR Drug Implant Levonorgestrel 09/06/2019 02:53:14 PM EDT completed [facility] Levonorgestrel 0.694202 MG/HR Drug Impla nt Levonorgestrel (Mirena) 20 mcg/24 hours (5 yrs) 52 mg intrauterine device Levonorgestrel (Mirena) 20 mcg/24 hours (5 yrs) 52 mg intrauterine device 09/06/2019 02:53:14 PM EDT completed [facility] Levonorgestrel 0.312132 MG/HR Drug Impla nt Levonorgestrel (Mirena) 20 mcg/24 hours (5 yrs) 52 mg intrauterine device Levonorgestrel (Mirena) 20 mcg/24 hours (5 yrs) 52 mg intrauterine device 09/06/2019 02:53:14 PM EDT completed [facility] Levonorgestrel 0.884264 MG/HR Drug Impla nt Levonorgestrel (Mirena) 20 mcg/24 hours (5 yrs) 52 mg intrauterine device Levonorgestrel (Mirena) 20 mcg/24 hours (5 yrs) 52 mg intrauterine device 09/06/2019 02:53:14 PM EDT completed [facility] Levonorgestrel 0.770568 MG/HR Drug Implant Levonorgestrel 09/06/2019 02:53:14 PM EDT completed [facility] 25 mcg 09/06/2019 12:00:00 AM EDT tablet 30 TAKE ONE TABLET BY MOUTH EVERY DAY TAKE ONE TABLET BY MOUTH EVERY DAY SOLD: 11/05/2019 [facility] Levothyroxine Sodium 0.025 MG Oral Table t levothyroxine (SYNTHROID, LEVOTHROID) 25 MCG tablet levothyroxine (SYNTHROID, LEVOTHROID) 25 MCG tablet 25 ug Oral aborted Take 25 mcg by mouth daily [facility] Levonorgestrel 0.843245 MG/HR Drug Impla nt levonorgestrel (MIRENA, 52 MG,) 20 MCG/24HR IUD levonorgestrel (MIRENA, 52 MG,) 20 MCG/24HR IUD 1 {each} Intrauterine aborted 1 each by Intraut erine route once [facility] Insurance Providers Payer name Policy type / Coverage type Policy ID Covered republican ID Covered republican's relationship to redman Policy Redman Plan Information [facility] [id number] SP [id number] [facility] MEDICAID [id number] [facility] MEDICAID [id number] Kaela [id number] [facility] [id number] SP [id number] [facility]) O [id number] S [id number] [facility] I [id number] Self [id number] [place] PPO [id number] [employer] Other 0 Self 0 [employer] Other 0 Self 0 [facility] U [id number] Self [id number] United[employer] Other 0 Self 0 [employer] Other 0 Self 0 MEDICAID M [id number] Self [id number] EXCELLUS C [id number] Spouse [id number] BCBS [place] O [id number] U 59 MEDICAID W [id number] S [id number] BLUE CHOICE OPTION O [id number] S [id number] BLUE CROSS BLUE SHIELD-PHYSICIAN [id number] 01 [id number] BLUE CROSS BLUE SHIELD-O/P [id number] 01 [id number] BLUE CROSS BLUE SHIELD-CLINIC [id number] Problems, Conditions, and Diagnoses Code Display Name Description Problem Type Effective Dates Data Source(s) R39.82 [id number] Chronic bladder pain Problem 12:00:00 AM EST eC1 ([facility]) Q21.1 Patent foramen ovale with atrial septal aneurysm Patent foramen ovale with atrial septal aneurysm [id number] 11/15/2020 12:00:[address] 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 M32.9 SLE (systemic lupus erythematosus) SLE (systemic lupus erythematosus) [id number] 11/12/2020 12:00:00 AM [facility] E28.2 PCOS (polycystic ovarian syndrome) PCOS (polycys tic ovarian syndrome) [id number] 11/12/2020 12:00:00 AM [facility] Q21.1 Ostium secundum type atrial septal defec t Ostium secundum type atrial septal defect [id number] 10/24/2020 12:00:00 AM [facility] K76.9 Chronic nonalcoholic liver disease Chronic nonal coholic liver disease [id number] 10/24/2020 12:00:00 AM [facility] E66.9 Obesity Obesity [id number] 10/24/2020 12:00:00 AM [facility] [id number] Ostium secundum type atrial septal defec t Ostium secundum type atrial septal defect Problem 10/24/2020 12:00:00 AM EST MEDENT ([facility]) [id number] Obesity Obesity Problem 10/24/2020 12:00:00 AM ES T MEDENT ([facility]) [id number] Dietary management surveillance Dietary manageme nt surveillance Problem 10/24/2020 12:00:00 AM EST [facility] ([facility]) 39503419 Chronic nonalcoholic liver disease Chronic nonal coholic liver disease Problem 10/24/2020 12:00:00 AM EST [facility] ([facility]) M32.9 [id number] Systemic lupus eryth ematosus, unspecified SLE type, unspecified organ involvement status Problem 10/01/2020 12:00:00 AM EST eCW1 ([facility]) E28.2 [id number] PCOS (polycystic ovarian syndrome) Proble m 08/15/2020 12:00:00 AM EDT eCW1 ([facility]) K76.9 Liver disease, unspecified Liver disease, unspecified Diagnosis 11/12/2020 03:27:42 PM EST [facility] E66.9 Obesity, unspecified Obesity, unspecified Diagnosis 11/12/2020 03:27:42 PM EST [facility] M32.9 Systemic lupus erythematosus, unspecifie d Systemic lupus erythematosus, unspecifie Diagnosis 11/12/2020 03:27:42 PM EST [facility] E28.2 Polycystic ovarian syndrome Polycystic ovarian syndrom e Diagnosis 11/12/2020 03:27:42 PM EST [facility] D73.5 Infarction of spleen Infarction of spleen Diagnosis 11/12/2020 03:27:42 PM EST [facility] E06.3 Autoimmune thyroiditis Autoimmune thyroiditis Diagnosi s 11/12/2020 03:27:42 PM EST [facility] E03.8 Other specified hypothyroidism Other specified hypothy roidism Diagnosis 11/12/2020 03:27:42 PM EST [facility] Q21.1 Atrial septal defect Atrial septal defect Diagnosis 11/12/2020 03:27:42 PM EST [facility] K76.0 Fatty (change of) liver, not elsewhere c lassified Fatty (change of) liver, not elsewhere c Diagnosis 11/12/2020 03:27:42 PM EST [facility] Surgeries/Procedures Procedure Description Date Indications Data Source(s) ECG ROUTINE ECG W/LEAST 12 LDS W/I&R POCT AMB EKG Routine 11/12/2020 4:00 PM EST Patent foramen ovale with atrial septal aneurysm 11/12/2020 09:00:00 PM EST Patent foramen ovale with atrial septal aneurysm [facility] Patent foramen ovale with atrial septal aneurysm ECG ROUTINE ECG W/LEAST 12 LDS W/I&R 10/24/2020 12:00: 00 AM EST [place]TH[place] ([facility]) Single contrast barium enema (procedure) 05/30/2020 12 :41:00 PM EDT [facility] Single contrast barium enema (procedure) 05/30/2020 12 :41:00 PM EDT [facility] Pelvic echography (procedure) 04/23/2020 12:30:00 PM E [facility] Pelvic echography (procedure) 04/23/2020 12:30:00 PM E [facility] Pelvic echography (procedure) 04/23/2020 12:30:00 PM E [facility] Computed tomography of abdomen and pelvis with contrast (pro cedure) [facility] contrast (pro cedure) 03/19/2020 05:01:00 PM EDT [facility] l Computed tomography of abdomen and pelvis with contrast (pro cedure) 03/19/2020 [facility] of [facility] and pelvis with contrast (pro cedure) 03/19/2020 [facility] of abdomen and pelvis with contrast (pro cedure) 03/19/2020 05:01:00 PM [facility] Bacterial culture (procedure) 02/01/2020 12:00:00 AM E [facility] Bacteria identification test (procedure) 02/01/2020 12 :00:00 AM [facility] Bacterial culture (procedure) 02/01/2020 12:00:00 AM E [facility] Bacteria identification test (procedure) 02/01/2020 12 :00:00 AM [facility] Bacterial culture (procedure) 02/01/2020 12:00:00 AM E [facility] Bacteria identification test (procedure) 02/01/2020 12 :00:00 AM [facility] Bacterial culture (procedure) 02/01/2020 12:00:00 AM E [facility] Bacteria identification test (procedure) 02/01/2020 12 :00:00 AM EDT [facility] Bacterial culture (procedure) 02/01/2020 12:00:00 AM E [facility] Bacteria identification test (procedure) [facility]01/2020 12:00:00 AM E [facility] Bacteria identification test (procedure) 02/01/2020 12 :00:00 AM EDT [facility] Pelvic echography (procedure) 01/22/2020 06:42:00 PM E [facility] Pelvic echography (procedure) 01/22/2020 06:42:00 PM E [facility] Pelvic echography (procedure) 01/22/2020 06:42:00 PM E [facility] Pelvic echography (procedure) 01/22/2020 06:42:00 PM E [facility] Pelvic echography (procedure) 01/22/2020 06:42:00 PM E [facility] Pelvic echography (procedure) 01/22/2020 06:42:00 PM E [facility] Pelvic echography (procedure) 01/22/2020 06:42:00 PM E [facility] Pelvic echography (procedure) 01/22/2020 06:42:00 PM E [facility] Urine culture (procedure) 01/22[facility]2020 [facility] 01/22/2020 12:00:00 AM [facility] Urine culture (procedure) 01/22/2020 [facility]22[facility]2020 [facility]22[facility]2020 [facility] 01/22/2020 12:00:00 AM [facility] Urine culture (procedure) 01/22/2020 12:00:00 AM [facility] Urine culture (procedure) 01/22/2020 12:00:00 AM [facility] Pelvic echography (procedure) 11/05/2019 01:48:00 PM E [facility] Pelvic echography (procedure) 11/05/2019 01:48:00 PM E [facility] Pelvic echography (procedure) 11/05/2019 01:48:00 PM E [facility] Pelvic echography (procedure) 11/05/2019 01:48:00 PM E [facility] Pelvic echography (procedure) 11/05/2019 01:48:00 PM E [facility] Pelvic echography (procedure) 11/05/2019 01:48:00 PM E [facility] Pelvic echography (procedure) 11/05/2019 01:48:00 PM E [facility] Pelvic echography (procedure) 11/05/2019 01:48:00 PM E [facility] Results ID Date Data Source [id number] 11/25/2020 09:52:00 AM [facility] BR BR BR [facility] BRSEE NOTERESULT: [id number] variant not detectedSEE NOTEINTERPRETATION: This individual is negative (normal) for [id number] variant in the Prothrombin/Factor II gene. Increasedrisk of thrombophilia can be caused by a variety of geneticand non-genetic factors not screened for by this assay.Laboratory testing supervised and results monitored byJuana Panchal, Ph.D., [facility] [place], [facility].The [id number] mutation [[id number]: g.52832O>A (c.*97G>A)] inthe Prothrombin/Factor II gene is the second most commoninherited risk factor for thrombosis occurring inapproximately 2% of Caucasians. Presence of the mutation isassociated with an elevation of prothrombin levels to about30% above normal in heterozygotes and to 70% above normal inhomozygotes.Prothrombin (R92483E) mutations are detected byamplification of their selected [...] your local [facility]' genetic counselor or call [phone]) for assistance with interpretation of theseresults.This test was developed and its analytical performancecharacteristics have been determined by [facility] [place]. It has not beencleared or approved by FDA. This assay has been validatedpursuant to the CLIA regulations and is used for clinicalpurposes.THIS TEST WAS PERFORMED AT:[employer]/[place] [id number] [address] [facility] [address]SSOMAJASON AYON MD,PHD,[facility] Name Value Range Interpretation Code Description Data Jodie rce(s) Supporting Document(s) Leukocytes [#/volume] in Blood by Automated count 8.0 10*3/uL 4.45-10 .71 N [facility] Erythrocytes [#/volume] in Blood by Automated count 4.41 10*6/uL 4.20 -5.40 N [facility] Hemoglobin [Moles/volume] in Blood 13.3 g/dL 10.7-15.4 N [facility] Hematocrit [Volume Fraction] of Blood by Automated count 41.6 % 3 7-47 N [facility] Erythrocyte mean corpuscular volume [Ent itic volume] in Cord blood by Automated count 94.3 fL 80-96 N [facility] Erythrocyte mean corpuscular hemoglobin [Entitic mass] by Automated count 30.2 pg 27-31 N [facility] Erythrocyte mean corpuscular hemoglobin concentration [Mass/volume] in Cord blood 32.0 g/dL 33-37 Below low normal [facility] Erythrocyte distribution width [Entitic volume] by Automated count 12 % 11-15 N [facility] Platelets [#/volume] in Blood by Automated count 305 10*3/uL 130-472 N [facility] Platelet mean volume [Entitic volume] in Blood 10.4 fL 9.1-13.1 N [facility] Neutrophils/100 leukocytes in Blood by Automated count 54.5 % 41- 77 N [facility] Neutrophils [#/volume] in Blood by Automated count 4.4 U 1.7-7.6 N [facility] Lymphocytes/100 leukocytes in Blood by Automated count 32.4 % 14- 46 N [facility] Lymphocytes [#/volume] in Blood by Automated count 2.6 U 0.6-4.6 N [facility] Monocytes/100 leukocytes in Blood by Automated count 6.7 % 4-12 N [facility] Monocytes [#/volume] in Blood by Automated count 0.5 U 0.2-1.2 N [facility] Eosinophils/100 leukocytes in Blood by Automated count 5.7 % 0-7 N [facility] Eosinophils [#/volume] in Blood by Automated count 0.5 U 0.0-0.5 N [facility] Basophils/100 leukocytes in Blood by Automated count 0.5 % 0.4-1 .3 N [facility] Basophils [#/volume] in Blood by Automated count 0.0 U 0.0-0.2 N [facility] NUCLEATED RED BLOOD CELL 0 % [facility] NUCLEATED RED BLOOD CELL# 0 U [facility] Immature granulocytes [Presence] in Blood by Automated count 0-2 N [facility] Immature granulocytes [#/volume] in Blood by Automated count 0.0 U 0-0.1 N [facility] Manual Differential panel - Blood NO [facility] ID Date Data Source [id number] 11/25/2020 10:37:00 AM EST [facility] BRSEE NOTERESULT: [id number] variant not detectedSEE NOTEINTERPRETATION: This individual is negative (normal) for [id number] variant in the Prothrombin/Factor II gene. Increasedrisk of thrombophilia can be caused by a variety of geneticand non-genetic factors not screened for by this assay.Laboratory testing supervised and results monitored Daniela Panchal, Ph.D., [facility] [place], [facility].The [id number] mutation [[id number]: g.92132N>A (c.*97G>A)] inthe Prothrombin/Factor II gene is the second most commoninherited risk factor for thrombosis occurring inapproximately 2% of Caucasians. Presence of the mutation isassociated with an elevation of prothrombin levels to about30% above normal in heterozygotes and to 70% above normal inhomozygotes.Prothrombin (G46538T) mutations are detected byamplification of their selected gene regions by polymerasechain reaction (PCR) and fluorescent probe hybridization tothe targeted region, followed by melting curve analysis witha real time PCR system. Although rare, false positive orfalse negative results may occur. All results should beinterpreted in context of clinical findings, relevanthistory, and other laboratory data.Health care providers, please contact your local [employer]' genetic counselor or call [phone]) for assistance with interpretation of theseresults.This test was developed and its analytical performancecharacteristics have been determined by [facility] [place]. It has not beencleared or approved by FDA. This assay has been validatedpursuant to the CLIA regulations and is used for clinicalpurposes.THIS TEST WAS PERFORMED AT:Pathflow/QReca! [id number] [facility] [place] [address]OEHWIJASON AYON MD,PHD,[facility] Name Value Range Interpretation Code Description Data Jodie rce(s) Supporting Document(s) C reactive protein [Mass/volume] in Serum or Plasma 3.8 mg/L 0.0-5. 0 N [facility] ID Date Data Source [id number] 11/29/2020 04:27:00 PM [facility] NOTERESULT: [id number] variant not detectedSEE NOTEINTERPRETATION: This individual is negative (normal) for [id number] variant in the Prothrombin/Factor II gene. Increasedrisk of thrombophilia can be caused by a variety of geneticand non-genetic factors not screened for by this assay.Laboratory testing supervised and results monitored Daniela Panchal, Ph.D., [facility] [place], [facility].The N61740A mutation [EI515322.1: g.62097T>A (c.*97G>A)] inthe Prothrombin/Factor II gene is the second most commoninherited risk factor for thrombosis occurring inapproximately 2% of Caucasians. Presence of the mutation isassociated with an elevation of prothrombin levels to about30% above normal in heterozygotes and to 70% above normal inhomozygotes.Prothrombin (M16678L) mutations are detected byamplification of their selected gene regions by polymerasechain reaction (PCR) and fluorescent probe hybridization tothe targeted region, followed by melting curve analysis witha real time PCR system. Although rare, false positive orfalse negative results may occur. All results should beinterpreted in context of clinical findings, relevanthistory, and other laboratory data.Health care providers, please contact your local [employer]' genetic counselor or call [phone] for assistance with interpretation of theseresults.This test was developed and its analytical performancecharacteristics have been determined by [facility]. It has not beencleared or approved by FDA. This assay has been validatedpursuant to the CLIA regulations and is used for clinicalpurposes.THIS TEST WAS PERFORMED AT:Pathflow/QReca! [id number] [place] [address]ZBGLKJASON AYON MD,PHD,[facility] Name Value Range Interpretation Code Description Data Jodie rce(s) Supporting Document(s) Cardiolipin IgG Ab in Serum 17 GPL Above high normal [facility] Value Interpretation ----- < or = 14 Negative 15 - 20 Indeterminate 21 - 80 Low to Medium Positive >80 High Positive Cardiolipin IgA Ab in Serum <11 [facility] Value Interpretation ----- < or = 11 Negative 12 - 20 Indeterminate 21 - 80 Low to Medium Positive >80 High Positive Cardiolipin IgM Ab in Serum 13 MPL Above high normal [facility] Value Interpretation ----- < or = 12 Negative 13 - 20 Indeterminate 21 - 80 Low to Medium Positive > 80 High PositiveThe antiphospholipid antibody syndrome (APS) is aclinical-pathologic correlation that includes aclinical event (e.g. thrombosis, loss,thrombocytopenia) and persistent positiveantiphospholipid antibodies(IgM or IgG AWILDA >40 MPL/GPL, IgM or IgG anti-z0NGReqigbircnu or a lupus anticoagulant). Internationalconsensus guidelines for APS suggest waiting at least12 weeks before retesting to confirm antibodypersistence. The [facility] Lupus [facility] immunological classificationcriteria for systemic lupus erythematosus (SLE)include testing for isotype IgA, which has yet to beincorporated into APS criteria. Low levelantiphospholipid antibodies may sometimes be detectedin the setting of infection, drug therapy or aging.THIS TEST WAS PERFORMED AT:[facility]flow[address] [address]VCVETW MERATI,MD ID Date Data Source [id number] 11/25/2020 10:37:00 AM [facility] BRSEE NOTERESULT: [id number] variant not detectedSEE NOTEINTERPRETATION: This individual is negative (normal) for [id number] variant in the Prothrombin/Factor II gene. Increasedrisk of thrombophilia can be caused by a variety of geneticand non-genetic factors not screened for by this assay.Laboratory testing supervised and results monitored byJuana Panchal, Ph.D., [facility] [place], [facility].The F63017H mutation [SY690673.1: g.79924Q>A (c.*97G>A)] inthe Prothrombin/Factor II gene is the second most commoninherited risk factor for thrombosis occurring inapproximately 2% of Caucasians. Presence of the mutation isassociated with an elevation of prothrombin levels to about30% above normal in heterozygotes and to 70% above normal inhomozygotes.Prothrombin (H64287G) mutations are detected byamplification of their selected gene regions by polymerasechain reaction (PCR) and fluorescent probe hybridization tothe targeted region, followed by melting curve analysis witha real time PCR system. Although rare, false positive orfalse negative results may occur. All results should beinterpreted in context of clinical findings, relevanthistory, and other laboratory data.Health care providers, please contact your local [employer] genetic counselor or call [phone]) for assistance with interpretation of theseresults.This test was developed and its analytical performancecharacteristics have been determined by [facility] [place]. It has not beencleared or approved by FDA. This assay has been validatedpursuant to the CLIA regulations and is used for clinicalpurposes.THIS TEST WAS PERFORMED AT:Pathflow/QReca! [id number] [place] [address]GLGGZJASON AYON MD,PHD,[facility] Name Value Range Interpretation Code Description Data Jodie rce(s) Supporting Document(s) Thyrotropin [Units/volume] in Serum or Plasma by Detec tion limit <= 0.005 mIU/L 2.34 u[iU]/mL 0.35-5.50 N [facility] ID Date Data Source [id number] 11/29/2020 04:27:00 PM [facility] NOT[facility]ESULT: [id number] variant not detectedSEE NOTEINTERPRETATION: This individual is negative (normal) for [id number] variant in the Prothrombin/Factor II gene. Increasedrisk of thrombophilia can be caused by a variety of geneticand non-genetic factors not screened for by this assay.Laboratory testing supervised and results monitored byJunaa Panchal, Ph.D., [facility] [place], [facility].The Z85511H mutation [PP229291.1: g.39578G>A (c.*97G>A)] inthe Prothrombin/Factor II gene is the second most commoninherited risk factor for thrombosis occurring inapproximately 2% of Caucasians. Presence of the mutation isassociated with an elevation of prothrombin levels to about30% above normal in heterozygotes and to 70% above normal inhomozygotes.Prothrombin (M14620F) mutations are detected byamplification of their selected gene regions by polymerasechain reaction (PCR) and fluorescent probe hybridization tothe targeted region, followed by melting curve analysis witha real time PCR system. Although rare, false positive orfalse negative results may occur. All results should beinterpreted in context of clinical findings, relevanthistory, and other laboratory data.Health care providers, please contact your local [employer]' genetic counselor or call [phone] for assistance with interpretation of theseresults.This test was developed and its analytical performancecharacteristics have been determined by [facility]. It has not beencleared or approved by FDA. This assay has been validatedpursuant to the CLIA regulations and is used for clinicalpurposes.THIS TEST WAS PERFORMED AT:Pathflow/QReca! [id number] [facility] [address]OLQSVJASON AYON MD,PHD,[facility] Name Value Range Interpretation Code Description Data Jodie rce(s) Supporting Document(s) Protein S [Units/volume] in Platelet poor plasma by Co agulation assay 84 % normal 70-140 [facility] Protein S actual/normal in Platelet poor plasma by Coa gulation assay 97 % normal 50-147 [facility] l THIS TEST WAS PERFORMED AT:[employer] [facility]/QReca! [id number] [place] [address] MD,PHD ID Date Data Source [id number] 11/29/2020 04:27:00 PM EST [facility] NOT[facility]: [id number] variant not detectedSEE NOTEINTERPRETATION: This individual is negative (normal) for [id number] variant in the Prothrombin/Factor II gene. Increasedrisk of thrombophilia can be caused by a variety of geneticand non-genetic factors not screened for by this assay.Laboratory testing supervised and results monitored Daniela Panchal, Ph.D., [facility] [place], [facility].The Y74164R mutation [JT592964.1: g.95980G>A (c.*97G>A)] inthe Prothrombin/Factor II gene is the second most commoninherited risk factor for thrombosis occurring inapproximately 2% of Caucasians. Presence of the mutation isassociated with an elevation of prothrombin levels to about30% above normal in heterozygotes and to 70% above normal inhomozygotes.Prothrombin (V46237O) mutations are detected byamplification of their selected gene regions by polymerasechain reaction (PCR) and fluorescent probe hybridization tothe targeted region, followed by melting curve analysis witha real time PCR system. Although rare, false positive orfalse negative results may occur. All results should beinterpreted in context of clinical findings, relevanthistory, and other laboratory data.Health care providers, please contact your local [employer]' genetic counselor or call [phone] for assistance with interpretation of theseresults.This test was developed and its analytical performancecharacteristics have been determined by [facility]. It has not beencleared or approved by FDA. This assay has been validatedpursuant to the CLIA regulations and is used for clinicalpurposes.THIS TEST WAS PERFORMED AT:Pathflow/QReca! 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..] its analytical performancecharacteristics have been determined by [facility] [place]. It has not beencleared or approved by FDA. This assay has been validatedpursuant to the CLIA regulations and is used for clinicalpurposes.Health care providers, please contact your local [employer] genetic counselor or call [phone] for assistance with interpretation of theseresults.THIS TEST WAS PERFORMED AT:Pathflow/QReca! [id number] [facility] [place] [address]JASON AYON MD,PHD,ONI ID Date Data Source [id number] 11/29/2020 04:27:00 PM [facility] BR [facility] BRSEE NOTERESULT: [id number] variant not detectedSEE NOTEINTERPRETATION: This individual is negative (normal) for zojO22495Q variant in the Prothrombin/Factor II gene. Increasedrisk of thrombophilia can be caused by a variety of geneticand non-genetic factors not screened for by this assay.Laboratory testing supervised and results monitored byJuana Panchal, Ph.D., [facility] [place], [facility].The C23091Y mutation [UK173620.1: g.83182E>A (c.*97G>A)] inthe Prothrombin/Factor II gene is the second most commoninherited risk factor for thrombosis occurring inapproximately 2% of Caucasians. Presence of the mutation isassociated with an elevation of prothrombin levels to about30% above normal in heterozygotes and to 70% above normal inhomozygotes.Prothrombin (A97364P) mutations are detected byamplification of their selected [...] your local [employer]' genetic counselor or call [phone]) for assistance with interpretation of theseresults.This test was developed and its analytical performancecharacteristics have been determined by [facility] [place]. It has not beencleared or approved by FDA. This assay has been validatedpursuant to the CLIA regulations and is used for clinicalpurposes.THIS TEST WAS PERFORMED AT:Pathflow/QReca! [id number] [facility] [place] [address]JEBUUJASON AYON MD,PHD,[facility] Name Value Range Interpretation Code Description Data Jodie rce(s) Supporting Document(s) ID Date Data Source [id number] 11/29/2020 04:27:00 PM [facility] NOT[facility]ESULT: [id number] variant not detectedSEE NOTEINTERPRETATION: This individual is negative (normal) for kqcJ61487P variant in the Prothrombin/Factor II gene. Increasedrisk of thrombophilia can be caused by a variety of geneticand non-genetic factors not screened for by this assay.Laboratory testing supervised and results monitored byJuana Panchal, Ph.D., [facility].The Y32725D mutation [KA240976.1: g.15538U>A (c.*97G>A)] inthe Prothrombin/Factor II gene is the second most commoninherited risk factor for thrombosis occurring inapproximately 2% of Caucasians. Presence of the mutation isassociated with an elevation of prothrombin levels to about30% above normal in heterozygotes and to 70% above normal inhomozygotes.Prothrombin (W22077J) mutations are detected byamplification of their selected gene regions by polymerasechain reaction (PCR) and fluorescent probe hybridization tothe targeted region, followed by melting curve analysis witha real time PCR system. Although rare, false positive orfalse negative results may occur. All results should beinterpreted in context of clinical findings, relevanthistory, and other laboratory data.Health care providers, please contact your local [employer] genetic counselor or call [phone]) for assistance with interpretation of theseresults.This test was developed and its analytical performancecharacteristics have been determined by [facility]. It has not beencleared or approved by FDA. This assay has been validatedpursuant to the CLIA regulations and is used for clinicalpurposes.THIS TEST WAS PERFORMED AT:Pathflow/QReca! [id number] [place] [address]JRWUKJASON AYON MD,PHD,[facility] Name Value Range Interpretation Code Description Data Jodie rce(s) Supporting Document(s) Protein C Ag in Platelet poor plasma 108 % 70-140 [facility] Units: % of normalTHIS TEST WAS PERFORME D AT:Pathflow/QReca! [id number] [place] [address] MD,PHD ID Date Data Source [id number] 11/29/2020 04:27:00 PM EST [facility] BRSEE NOTERESULT: [id number] variant not detectedSEE NOTEINTERPRETATION: This individual is negative (normal) for gtwV05064H variant in the Prothrombin/Factor II gene. Increasedrisk of thrombophilia can be caused by a variety of geneticand non-genetic factors not screened for by this assay.Laboratory testing supervised and results monitored byJuana Panchal, Ph.D., [facility] [place], [facility].The Z10928V mutation [DH939861.1: g.10256E>A (c.*97G>A)] inthe Prothrombin/Factor II gene is the second most commoninherited risk factor for thrombosis occurring inapproximately 2% of Caucasians. Presence of the mutation isassociated with an elevation of prothrombin levels to about30% above normal in heterozygotes and to 70% above normal inhomozygotes.Prothrombin (G31816J) mutations are detected byamplification of their selected gene regions by polymerasechain reaction (PCR) and fluorescent probe hybridization tothe targeted region, followed by melting curve analysis witha real time PCR system. Although rare, false positive orfalse negative results may occur. All results should beinterpreted in context of clinical findings, relevanthistory, and other laboratory data.Health care providers, please contact your local [employer] genetic counselor or call [phone] for assistance with interpretation of theseresults.This test was developed and its analytical performancecharacteristics have been determined by [facility]. It has not beencleared or approved by FDA. This assay has been validatedpursuant to the CLIA regulations and is used for clinicalpurposes.THIS TEST WAS PERFORMED AT:Pathflow/QReca! [id number] [place] [address]FGMKFJASON AYON MD,PHD,[facility] Name Value Range Interpretation Code Description Data Jodie rce(s) Supporting Document(s) Anti-Thrombin III Activity 91 % normal 80-135 [facility] THIS TEST WAS PERFORMED AT:[employer]/QReca! [id number] [place] [address] MD,PHD ID Date Data Source [id number] 11/29/2020 04:27:00 PM [facility] BRSEE NOTERESULT: [id number] variant not detectedSEE NOTEINTERPRETATION: This individual is negative (normal) for rezB44111M variant in the Prothrombin/Factor II gene. Increasedrisk of thrombophilia can be caused by a variety of geneticand non-genetic factors not screened for by this assay.Laboratory testing supervised and results monitored byJuana Panchal, Ph.D., [facility] [place], [facility].The K83178N mutation [NI664113.1: g.54147F>A (c.*97G>A)] inthe Prothrombin/Factor II gene is the second most commoninherited risk factor for thrombosis occurring inapproximately 2% of Caucasians. Presence of the mutation isassociated with an elevation of prothrombin levels to about30% above normal in heterozygotes and to 70% above normal inhomozygotes.Prothrombin (L94576M) mutations are detected byamplification of their selected gene regions by polymerasechain reaction (PCR) and fluorescent probe hybridization tothe targeted region, followed by melting curve analysis witha real time PCR system. Although rare, false positive orfalse negative results may occur. All results should beinterpreted in context of clinical findings, relevanthistory, and other laboratory data.Health care providers, please contact your local [employer]' genetic counselor or call [phone] for assistance with interpretation of theseresults.This test was developed and its analytical performancecharacteristics have been determined by [facility]. It has not beencleared or approved by FDA. This assay has been validatedpursuant to the CLIA regulations and is used for clinicalpurposes.THIS TEST WAS PERFORMED AT:Pathflow/ZAHRA [id number] [place] [address]YRQTNJASON AYON MD,PHD,[facility] Name Value Range Interpretation Code Description Data Jodie rce(s) Supporting Document(s) Fibrinogen [Mass/volume] in Platelet poor plasma by Coagulat ion assay 290 mg/dL 175-425 [facility] THIS TEST WAS PERFORMED AT:[employer] [facility]/ZAHRA [id number] [place] [address] MD,PHD ID Date Data Source [id number] 11/19/2020 08:21:[address] [facility] Patient Name: ERYN NAVARRO LM : 1990 Sex: F Pt Unit #: [id number] Location:[facility] Provider: Visit Date/Time: 11/19/20 Primary Insurance: [facility] Secondary Insurance: Self Pay Intake Vital Signs [...] female presents today s/p hospital discharge from [facility] 09/22/20-09/26/20. Patients discharge diagnosis Splenic Infarct, Patent Foramen Ovale/Interatrial Septal Aneurysm. Rheumatology consult done and holding off on restarting Plaquenil until sees Pulmonology. Patient saw Cardiology and she is to be monitoring BP at home. Patient notes that she checks Bi-weekly 130'sover low 80's per patient. Patient notes Pre Kindergarten Teacher wants her to be referred for possible removal of diseased portion of her spleen. Patient needs referral to Pulmonology. 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 States that she was diagnosed by her vice president. Will check urine today and will treat if infection is present. Will refer to urology for further evaluation. Orders: Referrals: Urology Referral (4) ISRAEL positive: Status: Acute SNOMED Code(s): 116984568 Category: Medical Plan - Eryn Martinez NP: Encouraged patient to continue scheduled follow-up with rheumatology. Discussed with her that condition can affect different organs of the body in different ways. (5) Rosendo's thyroiditis: Status: Acute Code(s): E06.3 - Autoimmune thyroiditis SNOMED Code(s): 48673537 Category: Medical Plan - Eryn Martinez NP: [...] not intractable, without status migrainosus SNOMED Code(s): 6121347 Category: Medical Plan - Eryn Martinez NP: [...] - Systemic lupus erythematosus, unspecified SNOMED Code(s): 34170500 Category: Medical Qualifiers: Systemic lupus erythematosus organ involvement: unspecified Systemic lupus erythematosus type: unspecified Qualified Code(s): M32.9 - Systemic lupus erythematosus, unspecified Orders: Orders: Protein C Antigen 11/19/20 AT3 Anti-Thrombin III Activity 11/19/20 Protein S Antigen, Tot/Free 11/19/20 Referrals: Hematology/Oncology Referral (8) PFO (patent foramen ovale): Status: Acute Code(s): Q21.1 - Atrial septal defect SNOMED Code(s): 445981443 Category: Medical Plan - Eryn Martinez URBAN DESIGN CONSULTANT: Will refer to pulmonology as suggested by discharge instructions. Also encouraged patient to continue scheduled follow-ups with cardiology. Orders: Referrals: Pulmonary Referral (9) Dysuria: Status: Acute Code(s): R30.0 - Dysuria SNOMED Code(s): 02787777 Category: Medical Plan - Eryn Martinez URBAN DESIGN CONSULTANT: Urine in the office is indicative of [...] [place] [address] New Pt Extended Comp Patient Type New [...] Dysuria R30.0 <Electronically signed by Eryn Martinez URBAN DESIGN CONSULTANT> 11/23/20 1401 Name Value Range Interpretation Code Description Data Jodie rce(s) Supporting Document(s) ID Date Data Source [id number] 10/08/2020 03:34:20 PM [facility] Name Value Range Interpretation Code Description Data Jodie rce(s) Supporting Document(s) Progress Note [facility] MFNDUs8hUtARMmDd05/JIEjdOYCst5YiCUiqTHu9UBhxOYHrU1LdHVV9cK6yKNN1YIcBPeOaLkQzAMC5 [facility] FkJqoHDyMtWMKgKohDBrBbTEspQxfglYTsRV6BtVX6MPPyF12dSJQyIFMpS9FeGJItOJT+An0QNAPhqG OwXL1BPreI5E0rl4kZEz0+sL2XOU39a2CTAnz8SgiEVCNiGYO6H/HoYIuipyoMoqAydrADdl14UAL7UA U9FKb8mIlyEoApvipv9EezdaynAkQ/o0aNDVwpz7s/ 4i5Mj2dCMsMj/6Lqx4y+moses+la4ZOrCk9lYmZ/mfxv/yhR+P1N5zT+AfgvKNzRSXRENoPoFjvM7Uuot5 [file] Y98clX+GYigP2PY0iq5Zn96Y3ehy/Mónica+w4E3j/FqOQy5vmvxmsUGQ2cHW8WM/8Dv/84hx2PKI9ob2Xk [file] ID Date Data Source [id number] 10/07/2020 10:03:57 AM EST [facility] Name Value Range Interpretation Code Description Data Jodie rce(s) Supporting Document(s) Progress Note [facility] PIHJHl9fWoQSAwMa13/RVFqoKHWcp0CrJTknBVp7JOcdFHTpV1RfWCG8sY0iFAM9YFpEZhAeDiErSPY1 lbm [file] AgICAgICAgICAgICAgICAgICAgICAgICAgICAgICAg SGUuSJNkDCQuXGJxKCXfIJCqPBYmWWDvIHXfUECcNOQyFELxDQCgECCoJFDgKWQbZYFfFPSpNA1KXYJo ICAgICAgICAgICAgICAgICAgICAgICAgICAgICAgICAgICAgICAgICAgICAgICAgICAgICAgICAgICAg ICAgICAgICAgICAgICAgICAgICAgICAgICAgICAgIC LiSDFqKE0DGRArNCWsBBPgXIBmQSDwJGLiNGQjXUOgLLTtXIVjZTInQEXeLQUlXVQgQRGwKPYtDSSoUJ EiIZFgFLRrSHArDSVdJKMfISWbNZRaLWKpVXQgPGGrHIZsCLRtMTSnIUVnJAAnPT9OVKFnOTUyRCIaOQ AgICAgICAgICAgICAgICAgICAgICAgICAgICAgICAg ETLlAFRdIMAsUHTvCSSuSAWlJZVoPTGtQVRuRKEgDGSsTXFiGNJfYXFtIUUvOJBvUGDtAFFnUWWlNN6K ICAgICAgICAgICAgICAgICAgICAgICAgICAgICAgICAgICAgICAgICAgICAgICAgICAgICAgICAgICAg ICAgICAgICAgICAgICAgICAgICAgICAgICAgICAgIC CwJXUgVAUlTL0WFAJlGGPxVDKqGDNjOHXiLOWcEIFbRNEnVKOuHHQlYGXoMSIuLEZwNWXoIUHjSEKyXY ViUKDjQHFzUOVmGNTiVDArYWZoJOWkLIAbNDOeCQLaILGvMARtKNSoXNUgOGMuMNRsFP3JASLvIWInRU AgICAgICAgICAgICAgICAgICAgICAgICAgICAgICAg ICAgICAgICAgICAgICAgICAgICAgICAgICAgICAgICAgICAgICAgICAgICAgICAgICAgICAgICAgICAg LT5RXKIrXIXaWNIpZRJqSNGlOFOkFEHsDOKkCAKnPXMyOIAjLGVoQVRmEUOkGQZoRPThHUMgWXBzNNNe ICAgICAgICAgICAgICAgICAgICAgICAgICAgICAgIC DhYRZaZBPxNGDsPS7WBMQuXTRbDPSvGKHrTZNlJDGuBUDnVRKlCHAzEROvWZCjUVBcSMAuKNYtYAXcUZ NuROObWJFxWRPsTSEkPZSrFUYnCCUvMTZcQMDaRTUhQODhPYQtIVReXAXbETUuCXPhALZbRF8YDH99bG Cbh9O1TLIeRJ2lxqy/Zi4BMHxlhaVkqJMuFO2ZGfVc KI9uay4BPbMcVF6xcu1RNQoIGnFuX5O9mETpVJIuRATMUdAgE20nMIguVz43VYzuJJXgXkByYSb0Su9Q EwQbT1fuNPQuAcI9YXGgZaBgQKdyHU9Vi2XctSNyIMy+Co1XHY0ly9GuOQynRYGiAN4oyn1DKHmQXxVd F1PbcwX2SWIvLAJdFr7ITUMfMXHgjFIqRPDoXFFBKu SxF3HpmZ82UTKHEm4+SQxilbOvIhpKOwYlXOEac9IlZVf8KV1JWCFoIXt3qSEzHFDtE0Edu3GvGw77FE QzEqvtWuiqfxfsw21qQAq9IMYKSFVfkDInLB7uWV2fXBUiDNNcOjItXDYVOE7KEXFlAPFtwVCsOMSrRT STFT8PXKdaLBP6ZWDwtpPqrBKnAPgkTZ7HMIVgbuOx MTkgMCBSDQo+Lv3NNY2dj2VmTSsiUIGmJA3jbt0CQUxELsXjY7C1iEThO7G8OMzvLk9TAPPoWPGvGEnd MDFHIExeHF0RUV2fqjX4AZ8WnMCzMSCzEFJxyRNgJKw3F77brVAfRIaaPU9TFGW+Manuel+Pe9SXIKvWMOd UWKfUbBlVMGWHxIsH8VdO3WWd8JdD6DfQP28bXfdtj YpJQkjOQ3ONV5mMQYtJBJSLN1EqFSoiZ7lyyToXNNhWSSSFpBkH81fvHMoAFUbSFI8NCYaLa5WLLNtN2 QucfMkdJvropChFHGpUJMKYP2MQUjohzZniVUjnFtgJK22kKivMV0QFo1NMkSmFN2nni6GnXUxIs4MPT DdQk7ULNXnFIHvOVFpPEY0IVTwFgJlFLccBISdDJVk FKT7GQSmDLCoBV7XNwAeJQKhGTD6OjMhZIHmRIFcxf4GFUYyQNNvWOB2IRNxHIWdWEZlKVubCFUmKZDc XJA9QZZjILPdZH8NXnUdWSNsYZI9SLkbFOWfDUDhph8QZJVjBHZjYItdEKBwRVPtGCGdRRglBHJiFCYw RaUyKGEsBBGiNN6DPqEeAFDiRCZ1ARCeGXKnZWPgjr 9LKBBaFUXfVsJkWqObOWAmUMTxNArtLHScLJE7IFo4ZHFcXSIxJJ1NNdLgEWLzQLWoIZIiTLJwEITtqy 7QGZSrNEJnFRO3JaZdSKYuDGMhUPzcRPXsUCG5CFB0ABMqJKMtDE3PFtMlTZMrGMQcMMDxJIVdNXUxka 7AMRSzYAVvDxO5OkYgQOKaVNDdNAwhIEGpJNJ5PeYk REJeTYDwJS1FRpRfCJEtZXJ4DJllGPPzFNCwzo0UWHCoXIIdWyH6BLYnNNBhKOKdJEoiWJQbDSV7DDs6 GSLjWDIsKL9XVlPoSMSwQWn5RLleBEEoUQAvyy2MYXSuZSQjPUlhBkEjJEGyKLIkCKa7tmBqgIAeWQn6 PM8KB6WnkrMvOtDLCj3Pa203HLFlIZIeUr0EM5emLb 8mVAJzEICNLo9YIPb4HdUbBsu7AazlDnn6IMQfXiKjJFJlUwM0OcR9ZTAmIRS+IDxmZTMyNzhiOGNjNz HvZAG9DjCqVTOrFmasCUyiIcZ6Zt9jRHYPGi1+NAawxKBgkCtjEKOARiL5MPKjUDqxESUFVh4H ID Date Data Source [id number] 10/03/2020 08:47:58 AM EST [facility] Name Value Range Interpretation Code Description Data Jodie rce(s) Supporting Document(s) Progress Note [facility] HCQMGk6sZbRWDnMf16/DNYdqMDWiz4RzOYruFFy2SSpyKHOoR8DiGZV5bH0jVAU8GPrUIaBiGjKmWITk lbm [file] AgICAgICAgICAgICAgICAgICAgICAgICAgICAgICAg ICAgICAgICAgICAgICAgICAgICAgICAgICAgICAgICAgICAgICANCiAgICAgICAgICAgICAgICAgICAg ICAgICAgICAgICAgICAgICAgICAgICAgICAgICAgICAgICAgICAgICAgICAgICAgICAgICAgICAgICAg ICAgICAgICAgICAgICAgICAgICANCiAgICAgICAgIC AgICAgICAgICAgICAgICAgICAgICAgICAgICAgICAgICAgICAgICAgICAgICAgICAgICAgICAgICAgIC AgICAgICAgICAgICAgICAgICAgICAgICAgICAgICANCiAgICAgICAgICAgICAgICAgICAgICAgICAgIC AgICAgICAgICAgICAgICAgICAgICAgICAgICAgICAg ICAgICAgICAgICAgICAgICAgICAgICAgICAgICAgICAgICAgICAgICANCiAgICAgICAgICAgICAgICAg ICAgICAgICAgICAgICAgICAgICAgICAgICAgICAgICAgICAgICAgICAgICAgICAgICAgICAgICAgICAg ICAgICAgICAgICAgICAgICAgICAgICANCiAgICAgIC AgICAgICAgICAgICAgICAgICAgICAgICAgICAgICAgICAgICAgICAgICAgICAgICAgICAgICAgICAgIC AgICAgICAgICAgICAgICAgICAgICAgICAgICAgICAgICANCiAgICAgICAgICAgICAgICAgICAgICAgIC AgICAgICAgICAgICAgICAgICAgICAgICAgICAgICAg ICAgICAgICAgICAgICAgICAgICAgICAgICAgICAgICAgICAgICAgICAgICANCiAgICAgICAgICAgICAg ICAgICAgICAgICAgICAgICAgICAgICAgICAgICAgICAgICAgICAgICAgICAgICAgICAgICAgICAgICAg ICAgICAgICAgICAgICAgICAgICAgICAgICANCiAgIC AgICAgICAgICAgICAgICAgICAgICAgICAgICAgICAgICAgICAgICAgICAgICAgICAgICAgICAgICAgIC AgICAgICAgICAgICAgICAgICAgICAgICAgICAgICAgICAgICANCiAgICAgICAgICAgICAgICAgICAgIC AgICAgICAgICAgICAgICAgICAgICAgICAgICAgICAg ICAgICAgICAgICAgICAgICAgICAgICAgICAgICAgICAgICAgICAgICAgICAgICANCjw/dILjB6rslRTh vgT2M3tmUa0WCd1TTP3qd3DaDWYgJZkpboVfHkrWTgHkVFKlWghNJzk4DEmgTN8HwADtC6FhA2DfWCzi PK5NZQYtJEWnyKLvWTDiLDGyJrZ2ZWOuAExsDR2RsJ FbKDafVOBfHZWqDnTyUZLiJBVeRCUkRORlVVBIXBNoIGXjVbYuMNupBV5Do5LvpWU1BMe+Ng5UGD9ae6 CqYJntUGSfFU0jom2MANbKZlXaI2KucdS2GQXkWVQqZy9MFSUnMDNmiEIwCXXdTOUEJwDzI6EjaF35IG ENCj4+VPpdmnWnSsaICfSmSOTaa7ZbVSk8ZX7QPYPs CWs4yUSiFMWvZ8Bdx3XeWa47ICOzBljbJtvkctmel97hRDv1RGIXLEYvrYFrOJ3sCM7kOMPqCRTxEqJg PYYPKA0THFWqQFCoeQDaJEOvKTUTBS8FRJrtQYC4CSHovlHjiKHaIYtnIR0WOFJkhnYaCoBaIDVLNKo+ Wj4CSW7hx8QzMTtcWrQjLS4gjv2GPYeVVbXsR7R6jZ AzE1D8QInaDb7WBXGuYHBjQvccAGYFWSlvUN0VGJ4mcwV7CZ3CkNSbRYCmRXCoxQJjLAb5J15bmHAgIT tkHX1SOSU+Manuel+Oc1FEICjTDRbPFBqYmEyEUOXMaTjO8KcU8JCy6GmV2OnUD99aQuxjtWyJZqwSD4ZDU 9zGREdESIIGY6UlGYkiW5tzhJmEBAnVSHIPgCtO91r sTMaHPAaNEP3HMEdWc8KQBBhJ1SsgqPdmErcyiFtXQIzKVHSHN5CTUdlhdDvlSIqkIeuNE48xKxbMO4W Yd5WRxOzET5wyf9RuUIyCt1TTTNbLf0XKBIpIPMjIOYvMWO5IMJbCpQeSUapOGXnQAMoRVM3JWIiCPEw AK8NYfXmINRoLgKbLXFsCEZrNPOfup6JIQPaZFJsYM UoWxVlDCNgGMKnFLfaSBLrOQGbBTR3TJVvULKiKY5CFtGlCIYaAFI5DdXyFPHdVTRfwn0YECZmHTIlGQ kuHUWrFLLpQRFtNHdtWCGoDBO5WNWuJINnAFJyJR0POdSlBOWdJEvhQJLuSSFfUKDmfx8STHHxZWAnZR H4FwPtBIKfODFiIKevUKDjZNLxYXznIQDsOAJbNA6Q PePmEHWhQBFrNtJpUUZnTDLieu0SFOGoIMMnEXSdUBEyVZDfYCKiYKqyZDKiPHL3OtVhHZKqZUIwTM1X DyYxKXMrQFG2QEvbGBMhVAMrhn8JSSOxOJZkOiu5ZMYcDOJtNBEiXBziOHSoHHG9AVE2HMQrSLGuRB5D BbCkWJMvLLesEQwgWEHbDJVagy1HXNGzPNVrVOMdOJ DoGKZpBFMoKUyuDNZrYLZ5GNHjZTHrBDYeLI5NAdKfJZShKBf3PFccYATdBQYnpz8MMVVtNFAyUALuDQ YlUBTfZHWuBVgrECNvQJEsMcNoBGFaRHSgKA2ZPsMeSWAnWjY9RtPyZIYyYZPsew9BNEJzHVBoHSbqAn UdILSyKQCiXCthGAKkPANfRVF9VDQdCKNqGZ7TRjZp BCNaSxV5RYPqMIEoUTVtgk5IBHCoGHCiIeE6YzDgGXZvSEIkGLdmLVRsOFBtCitpAOXiRESaJF4PGlSn RRMxFqP5TIhkPGDxEPTuhr8ETBTuQQZjWNA5DHSbIJXwSZVdTTmgEFJkYEI8WvZiCLQiENBzGO4ZGsNv GTZqZqIsAbQuTDAbTVLngr2YeLTapLjkhp4QNSrCVh 8OcPzoWKTbICizYr3rrKEmFaZmAMZCTw0MkzUbESAvOHNUVLquUKNiVAk4GbHpTIEsKtZiThZlEIVlFN U7Y1XlDvGgXkXaELovWaE3HbTnIbErOrUpLUKuWKNtKkFqDAI4RDQ7XSLwFcJxTOV+LW9cUPq+Pg0Kc3 WoanL9vhQlYPlaMCBtVS3FELKZQ7CAWq== ID Date Data Source [id number] 10/01/2020 08:55:00 AM EST [facility] ([facility]) Name Value Range Interpretation Code Description Data Jodie rce(s) Supporting Document(s) Albumin [Mass/volume] in Serum or Plasma 4.1 [facility] ([facility]) Alanine aminotransferase [Enzymatic activity/volume] in Serum or Pl asma 31 [facility] ([facility]) Calcium [Mass/volume] in Serum or Plasma 9.3 [facility] ([facility]) Carbon dioxide, total [Moles/volume] in Serum or Plasma 30 [facility] ([facility]) Chloride [Moles/volume] in Serum or Plasma 103 [facility] ([facility]) Alkaline phosphatase [Enzymatic activity/volume] in Serum or Plasma 7 9 [facility] ([facility]) Potassium [Moles/volume] in Serum or Plasma 3.7 [facility] ([facility]) Protein [Mass/volume] in Serum or Plasma 7.8 [facility] ([facility]) Sodium 138 [facility] Aspartate aminotransferase [Enzymatic activity/volume] in Serum or Plasma 15 [facility] ([facility]) Urea nitrogen [Mass/volume] in Serum or Plasma 9 [facility] ([facility]) Glucose 105 83-110 [facility] ([facility] Creatinine For GFR 0.69 [facility] ([facility]) ID Date Data Source [facility] Chest, 2 view (PA\\Lat) 10/01/2020 12:00:00 AM EST eCW1 ( [facility]) Name Value Range Interpretation Code Description Data Jodie rce(s) Supporting Document(s) [facility] Chest, 2 view (PA\\Lat) eCW 1 ([facility]) ID Date Data Source Ser Prot Electro RFX ITS 10/01/2020 12:00:00 AM EST eCW1 ([facility]) Name Value Range Interpretation Code Description Data Jodie rce(s) Supporting Document(s) 59.5 55.8-66.1 ALBUMIN % eCW1 ([facility]) 9.4 7.1-11.8 OQYAT-2-EKNSXFAFA % eCW1 ([facility]) 4.7 2.9-4.9 EQYBR-8-QRGKPNBX % eCW1 ([facility]) 4.7 3.2-6.5 RRVD-1-GJCXREZGR % eCW1 ([facility]) 6.7 4.7-7.2 CFTT-0-ITBWGNJDQ % eCW1 ([facility]) 15.0 11.1-18.8 GAMMA GLOBULIN % eCW1 ([facility]) 0.53 0.28-0.60 VPJS-5-ZWBGTDEUS eCW1 ([facility] access hospital) 4.70 3.29-5.55 ALBUMIN eCW1 ([facility]) 0.74 0.42-0.99 LHUTB-3-VCWKTSOOJ eCW1 ([facility]) 0.37 0.17-0.41 QXKRF-8-JRWRLTEZF eCW1 ([facility]) 1.19 0.65-1.58 GAMMA GLOBULINS eCW1 ([facility]) SEE COMMENT SPEP INTERPRETATION FOR RFX eCW1 ([facility]) 7.9 6.4-8.2 TOTAL PROTEIN eCW1 ([facility]) 0.37 0.19-0.55 BCVR-2-AAIEXSHBD eCW1 ([facility]) ID Date Data Source RHEUMATOID FACTOR QUANT 10/01/2020 12:00:00 AM EST eCW1 ([facility]) Name Value Range Interpretation Code Description Data Jodie rce(s) Supporting Document(s) < 10.0 <15.0 RHEUMATOID FACTOR QUANT eCW1 ( [facility]) ID Date Data Source IMMUNOGLOBULIN G,A,M 10/01/2020 12:00:00 AM EST eCW1 ([facility]) Name Value Range Interpretation Code Description Data Jodie rce(s) Supporting Document(s) 104.0 40-230 IMMUNOGLOBULIN M eCW1 ([facility] hospital) 140.0 70-400 IMMUNOGLOBULIN A eCW1 ([facility] hospital) 3035 127-3717 IMMUNOGLOBULIN G eCW1 ([facility] hospital) ID Date Data Source CREATININE,RANDOM URINE 10/01/2020 12:00:00 AM EST eCW1 ([facility]) Name Value Range Interpretation Code Description Data Jodie rce(s) Supporting Document(s) 16.7 CREATININE,RANDOM URINE eCW1 ( [facility]) ID Date Data Source UA URINALYSIS 10/01/2020 12:00:00 AM EST eCW1 ([facility]) Name Value Range Interpretation Code Description Data Jodie rce(s) Supporting Document(s) UA URINALYSIS eCW1 ([facility]) ID Date Data Source TOTAL PROTEIN,RANDOM URINE 10/01/2020 12:00:00 AM EST eCW1 ( [facility]) Name Value Range Interpretation Code Description Data Jodie rce(s) Supporting Document(s) < 5.0 0.0-12.0 TOTAL PROTEIN,RANDOM URIN E eCW1 ([facility]) ID Date Data Source HEPATITIS C ANTIBODY INDEX 10/01/2020 12:00:00 AM EST eCW1 ( [facility]) Name Value Range Interpretation Code Description Data Jodie rce(s) Supporting Document(s) 0.1 <0.8 HEPATITIS C VIRUS RUSTY INDEX eC W1 ([facility]) ID Date Data Source HEPATITIS B SURFACE ANTIGEN 10/01/2020 12:00:00 AM EST eCW1 ([facility]) Name Value Range Interpretation Code Description Data Jodie rce(s) Supporting Document(s) NEGATIVE NEGATIVE HEPATITIS B SURFACE ANTIG EN eCW1 ([facility]) ID Date Data Source C REACTIVE PROTEIN QUANTITATIV (At [facility]) 10/01/2020 12:00 :00 AM EST eCW1 ([facility]) Name Value Range Interpretation Code Description Data Jodie rce(s) Supporting Document(s) 0.82 0.00-0.30 C REACTIVE PROTEIN QUANTI TATIV eCW1 ([facility]) ID Date Data Source Comprehensive Metabolic Profile (CMP) 10/01/2020 12:00:00 AM EST eCW1 ([facility]) Name Value Range Interpretation Code Description Data Jodie rce(s) Supporting Document(s) 105 70-100 GLUCOSE, FASTING eCW1 ([facility] hospital) 138 136-145 SODIUM LEVEL eCW1 ([facility]) > 60.0 >60 GLOMERULAR FILTRATION RATE eCW 1 ([facility]) 9 7-18 BLOOD UREA NITROGEN eCW1 ([facility]) 0.69 0.55-1.30 CREATININE FOR GFR eCW1 ([facility]) 3.7 3.5-5.1 POTASSIUM SERUM eCW1 ([facility]) 30 21-32 CARBON DIOXIDE LEVEL eCW1 ([facility]) 103 98-107 CHLORIDE LEVEL eCW1 ([facility]) 9.3 8.5-10.1 CALCIUM LEVEL eCW1 ([facility]) 0.3 0.2-1.0 BILIRUBIN,TOTAL eCW1 ([facility]) 15 7-37 AST/SGOT eCW1 ([facility]) 79 45-117 ALKALINE PHOSPHATASE eCW1 ([facility]) 31 12-78 ALT/SGPT eCW1 ([facility]) 4.1 3.2-5.2 ALBUMIN eCW1 ([facility]) 7.8 6.4-8.2 TOTAL PROTEIN eCW1 ([facility]) 1.1 1.2-2.2 ALBUMIN/GLOBULIN RATIO eCW1 ([facility]) ID Date Data Source [id number] 09/26/2020 08:53:00 AM EST [facility] ([facility]) Name Value Range Interpretation Code Description Data Jodie rce(s) Supporting Document(s) White Blood Count 7.7 5.0-10.0 [facility] ([facility]) Red Blood Count 4.11 4.00-5.40 [facility] ([facility]) Platelets 304 172-450 [facility] ([facility] Hemoglobin 12.4 [facility] ([facility]) Hematocrit 38.3 [facility] ([facility]) ID Date Data Source ESTRADIOL 08/22/2020 10:17:50 AM EDT eCW1 ([facility]) Name Value Range Interpretation Code Description Data Jodie rce(s) Supporting Document(s) 93.5 eCW1 ([facility]) ID Date Data Source FREE T4 & TSH PANEL 08/22/2020 10:17:41 AM EDT eCW1 ([facility]) Name Value Range Interpretation Code Description Data Jodie rce(s) Supporting Document(s) 0.921 eCW1 ([facility]) 0.90 eCW1 ([facility]) ID Date Data Source FSH & LH EVAL 08/22/2020 10:17:35 AM EDT eCW1 ([facility]) Name Value Range Interpretation Code Description Data Jodie rce(s) Supporting Document(s) 3.5 eCW1 ([facility]) 6.7 eCW1 ([facility]) ID Date Data Source TESTOSTERONE FREE & TOTAL 08/22/2020 10:17:27 AM EDT eCW1 ([facility]) Name Value Range Interpretation Code Description Data Jodie rce(s) Supporting Document(s) 3.1 eCW1 ([facility]) 27.0 eCW1 ([facility]) ID Date Data Source CBC - Complete Blood Count 08/22/2020 10:17:20 AM EDT eCW1 ( [facility]) Name Value Range Interpretation Code Description Data Jodie rce(s) Supporting Document(s) 42.6 eCW1 ([facility]) 4.50 eCW1 ([facility]) 7.9 eCW1 ([facility]) 13.8 eCW1 ([facility]) 11.9 eCW1 ([facility]) 30.7 eCW1 ([facility]) 32.4 eCW1 ([facility]) 94.7 eCW1 ([facility]) 321 eCW1 ([facility]) ID Date Data Source [id number] 08/22/2020 10:16:50 AM EDT eCW1 ([facility] hospital) Name Value Range Interpretation Code Description Data Jodie rce(s) Supporting Document(s) Hemoglobin A1c/Hemoglobin.total in Blood 5.2 eCW1 ([facility]) ID Date Data Source [id number] 07/23/2020 12:00:00 PM EDT [facility] Name Value Range Interpretation Code Description Data Jodie rce(s) Supporting Document(s) SARS coronavirus 2 RNA [facility] This lab was ordered by [facility] and reported by [facility]. ID Date Data Source [id number] 06/18/2020 12:25:00 PM EDT [facility] Patient Name: ERYN NAVARRO : 1990 Sex: F Pt Unit #: [id number] Location:[facility] Provider: Visit Date/Time: 06/18/20 Primary Insurance: [facility] Secondary Insurance: Self Pay Intake Vital Signs [...] IN PAST YEARS AGO SHE TELLS ME. Steel Cutter Required: No Is patient in pain?: Yes [...] Screening Screening Have you traveled outside of [facility] or [facility] in the last 14 days.: No [...] Yes drive intox or ride w/ intox tow car driver: No working smoke detector in home: [...] Orientation: alert, aw sourav and oriented x3 HENMS Head: normal to inspection and normocephalic Ears: [...] Code(s): N80.9 - Endometriosis, unspecified SNOMED Code(s): 140171139 Category: Medical (3) History of chronic cystitis: Status: Acute Code(s): Z87.448 - Personal history of other diseases of urinary system SNOMED Code(s): 927917041 Category: Medical (4) Pelvic pain: Status: Acute Code(s): R10.2 - Pelvic and perineal pain SNOMED Code(s): 90562340 Category: Medical (5) Educated about management of weight: Status: Acute Comment: has been able to lose on her own;used Phentermine in the past Code(s): Z78.9 - Other specified health status SNOMED Code(s): 249837914 Category: Medical Orders Other Medications: New: phent ermine take 1 tab by mouth daily as directed 37.5 mg PO DAILY 30 tabs 1RF MDD 1 Follow Up: 1 Week (postop) Electronically Signed By: <Electronically signed by Nate Granger II, MD> Date/Time Signed: 06/18/20 1321 Name Value Range Interpretation Code Description Data Jodie rce(s) Supporting Document(s) ID Date Data Source [id number] 05/30/2020 02:35:00 PM EDT [facility] [address] [place] [id number] [phone] NAME SEX PT STATUS ACCOUNT NUMBER ERYN NAVARRO LM F REG REF [id number] ORDERING PHYSICIAN LOCATION MEDICAL RECORD NO. Nate Granger II, MD RAD [id number] ATTENDING PHYSICIAN DATE OF DATE OF EXAM/TIME Zabrina Liu RPA 1990 05/30/20 / 1240 TYPE / EXAM Xray Barium enema-SINGLE CONTR REASON FOR EXAM Lower Abdominal Pain COMPARISON: None FINDINGS: Jewel Cupping Machine Operator radiograph of the abdomen displays an [...] Trans Dt/Tm: Trans by: DT Prt Dt/Tm: 9007-1299: Total DLP = 0.00 mGy-cm Fluoroscopy Time (in secs): Name Value Range Interpretation Code Description Data Jodie rce(s) Supporting Document(s) ID Date Data Source [id number] 05/28/2020 11:16:00 AM EDT [facility] Patient Name: ERYN NAVARRO LM : 1990 Sex: F Pt Unit #: [id number] Location:[facility] Provider: Visit Date/Time: 05/28/20 Primary Insurance: [facility] Secondary Insurance: Self Pay Intake Vital Signs [...] SEE WHY SHE HAS NOT BEEN CALLED. Steel Cutter Required: No Is patient in pain?: No [...] Screening Screening Have you traveled outside of [facility] or [facility] in the last 14 days.: No [...] Yes drive intox or ride w/ intox tow car driver: No working smoke detector in home: [...] judgment good Quality Reporting Sexual Activity Screening ([facility]) Sexually active?: Yes Assessment Plan Assessment Plan (1) Pain in female pelvis: Code(s): R10.2 - Pelvic and perineal pain (2) History of chronic cystitis: Status: Acute Code(s): Z87.448 - Personal history of other diseases of urinary system SNOMED Code(s): 515571222 Category: Medical (3) Endometriosis determined by laparoscopy: Status: Acute Comment: requesting operative report and pathology from surgery with . Code(s): N80.9 - Endometriosis, unspecified SNOMED Code(s): 838978508 Category: Medical Plan - Nate Granger II, MD: SANDIE Additional Comments Additional Comments: given the constant nature of her lower abdominal discomfort and change in bowels will request BaEnema. Orders Follow Up: 3 Weeks Electronically Signed By: <Electronically signed by Nate Granger II, MD> Date/Time Signed: 05/28/20 1345 Name Value Range Interpretation Code Description Data Jodie rce(s) Supporting Document(s) ID Date Data Source [id number] 04/23/2020 01:38:00 PM EDT [facility] [address] [facility] [place] [place] [address] [phone] NAME SEX PT STATUS ACCOUNT NUMBER ERYN NAVARRO LM F REG REF [id number] ORDERING PHYSICIAN LOCATION MEDICAL RECORD NO. Nate Granger II, MD [id number] ATTENDING PHYSICIAN DATE OF DATE OF EXAM/TIME [...] rce(s) Supporting Document(s) ID Date Data Source [id number] 04/02/2020 12:03:00 PM EDT [facility] Method of Collection:: Clean Catch Name Value Range Interpretation Code Description Data Jodie rce(s) Supporting Document(s) Color of Urine [facility] Appearance of Urine CLEAR [facility] pH of Urine by Test strip 7.5 5-8 [facility] Specific gravity of Urine by Refractometry 1.007 1.005-1.030 [facility] Leukocyte esterase [Presence] in Urine by Test strip NEGAT JADYN [facility] Nitrite [Presence] in Urine by Test strip NEGATIVE [facility] Protein [Presence] in Urine by Test strip NEGATIVE [facility] Glucose [Mass/volume] in Urine by Automated test strip NEGATIVE NEG ATIVE [facility] Ketones [Presence] in Urine by Test strip NEGATIVE [facility] Urobilinogen [Presence] in Urine 0.2-1 EU/dl [facility] Bilirubin.total [Presence] in Urine by Automated test strip NEGATIVE [facility] Erythrocytes [#/volume] in Urine by Test strip NEGATIVE NEGATIVE [facility] URINE MICROSCOPIC? (CIF) NO [facility] ID Date Data Source [id number] 04/02/2020 10:21:00 AM EDT [facility] Patient Name: Eryn Navarro LM : 1990 Sex: F Pt Unit #: [id number] Location:[facility] Provider: Visit Date/Time: 04/02/20 Primary Insurance: [facility] Secondary Insurance: Self Pay Intake Vital Signs [...] PID. SHE ALSO STATES LUPUS.SHE DID SEE [facility] RHEUMATOLOGY. SHE WAS DOING [place] BUT STOPPED IT MONTHS NOW. SHE WONDERS IF SHE SHOULD GO BACK TO IT. SHE WAS TO FOLLOW UP WITH THEM IN FEBRUARY GOT R/S D/T COVID. SHE ALSO STATESTHAT WANTED TO HAVE HER BACK IN AUGUST BUT THAT ALSO GOT CANCELED D/T COVID SHE HAS NO CURRENT APPTPER [facility]. SHE WAS RECENTLY IN ER FOR [...] TO CHECK ON THESE ANOMALIES FROM CT. Steel Cutter Required: No Is patient in pain?: Yes [...] Declines today. Pretest education received and acknowledged [facility] Medical History ISRAEL positive (Inactive) Carpal tunnel [...] Yes drive intox or ride w/ intox tow car driver: No working smoke detector in home: [...] Code(s): E06.3 - Autoimmune thyroiditis SNOMED Code(s): 01588171 Category: Medical (3) ISRAEL positive: Status: Acute SNOMED Code(s): 961334465 Category: Medical (4) Weight gain, abnormal: Status: Acute Comment: +/- 40 LBS IN 4 MONTHS Code(s): R63.5 - Abnormal weight gain SNOMED Code(s): 512721943 Category: Medical (5) Polycystic ovaries: Status: Chronic Comment: LABS IN THE PAST WERE NOT SUFFICIENT FOR MAKING DIAGNOSIS SNOMED Code(s): 174341384 Category: Medical Orders Other Medications: New: metformin [...] rce(s) Supporting Document(s) ID Date Data Source [id number] 03/19/2020 06:23:00 PM EDT [facility] [address] [place] [address] [phone] NAME SEX PT STATUS ACCOUNT NUMBER Eryn Navarro LM [facility] [id number] ORDERING PHYSICIAN LOCATION MEDICAL RECORD NO. Emiliano Delarosa MD ER [id number] ATTENDING PHYSICIAN DATE OF DATE OF EXAM/TIME [...] rce(s) Supporting Document(s) ID Date Data Source [id number] 03/19/2020 06:18:00 PM EDT [facility] Reason for ordering culture: Abnormal fi ndings UAMethod of Collection:: Voided Name Value Range Interpretation Code Description Data Jodie rce(s) Supporting Document(s) Color of Urine [facility] Appearance of Urine CLEAR [facility] pH of Urine by Test strip 7.0 5-8 [facility] Specific gravity of Urine by Refractometry 1.009 1.005-1.030 [facility] Leukocyte esterase [Presence] in Urine by Test strip NEGAT JADYN [facility] Nitrite [Presence] in Urine by Test strip NEGATIVE [facility] Protein [Presence] in Urine by Test strip NEGATIVE [facility] Glucose [Mass/volume] in Urine by Automated test strip NEGATIVE NEG ATIVE [facility] Ketones [Presence] in Urine by Test strip NEGATIVE [facility] Urobilinogen [Presence] in Urine 0.2-1 EU/dl [facility] Bilirubin.total [Presence] in Urine by Automated test strip NEGATIVE [facility] Erythrocytes [#/volume] in Urine by Test strip NEGATIVE NEGATIVE [facility] URINE MICROSCOPIC? (CIF) NO [facility] ID Date Data Source [id number] 03/19/2020 05:39:00 PM EDT [facility] @ DID THE CONTROL BAND APPEAR? YES@ DID THE BACKGROUND CLEAR? YES Name Value Range Interpretation Code Description Data Jodie rce(s) Supporting Document(s) Choriogonadotropin [Moles/volume] in Serum or Plasma NEGATIVE NEGAT JADYN [facility] @Reenter manual test result: NEGATIVE@by Irena Laura at 03/19/20 1739. ID Date Data Source [id number] 03/19/2020 05:19:00 PM EDT [facility] Name Value Range Interpretation Code Description Data Jodie rce(s) Supporting Document(s) Leukocytes [#/volume] in Blood by Automated count 7.9 10*3/uL 4.45-10 .71 N [facility] Erythrocytes [#/volume] in Blood by Automated count 4.36 10*6/uL 4.20 -5.40 N [facility] Hemoglobin [Moles/volume] in Blood 13.5 g/dL 10.7-15.4 N [facility] Hematocrit [Volume Fraction] of Blood by Automated count 40.2 % 3 7-47 N [facility] Erythrocyte mean corpuscular volume [Ent itic volume] in Cord blood by Automated count 92.2 fL 80-96 N [facility] ital Erythrocyte mean corpuscular hemoglobin [Entitic mass] by Automated count 31.0 pg 27-31 [facility] E[facility]throcyte mean corpuscular hemoglobin concentration [Mass/volume] in Cord blood 33.6 g/dL 33-37 N [facility] ital Erythrocyte distribution width [Entitic volume] by Automated count 12 % 11-15 N [facility] Platelets [#/volume] in Blood by Automated count 282 10*3/uL 130-472 N [facility] Platelet mean volume [Entitic volume] in Blood 9.6 fL 9.1-13.1 N [facility] Neutrophils/100 leukocytes in Blood by Automated count 50.8 % 41- 77 N [facility] Neutrophils [#/volume] in Blood by Automated count 4.0 U 1.7-7.6 N [facility] Lymphocytes/100 leukocytes in Blood by Automated count 32.7 % 14- 46 N [facility] Lymphocytes [#/volume] in Blood by Automated count 2.6 U 0.6-4.6 N [facility] Monocytes/100 leukocytes in Blood by Automated count 8.1 % 4-12 N [facility] Monocytes [#/volume] in Blood by Automated count 0.6 U 0.2-1.2 N [facility] Eosinophils/100 leukocytes in Blood by Automated count 7.4 % 0-7 Above high normal [facility] Eosinophils [#/volume] in Blood by Automated count 0.6 U 0.0-0.5 Above high normal [facility] Basophils/100 leukocytes in Blood by Automated count 0.5 % 0.4-1 .3 N [facility] Basophils [#/volume] in Blood by Automated count 0.0 U 0.0-0.2 N [facility] NUCLEATED RED BLOOD CELL 0 % [facility] NUCLEATED RED BLOOD CELL# 0 U [facility] Immature granulocytes [Presence] in Blood by Automated count 0-2 N [facility] Immature granulocytes [#/volume] in Blood by Automated count 0.0 U 0-0.1 N [facility] Manual Differential panel - Blood NO [facility] ID Date Data Source [id number] 03/19/2020 05:38:00 PM EDT [facility] Name Value Range Interpretation Code Description Data Jodie rce(s) Supporting Document(s) Urea nitrogen [Mass/volume] in Serum or Plasma 8 mg/dL 9-23 Below low normal [facility] Sodium [Moles/volume] in Serum or Plasma 140 mmol/L 132-146 [facility] Potassium [Moles/volume] in Serum or Plasma 3.7 mmol/L 3.5-5.5 [facility] Chloride [Moles/volume] in Serum or Plasma 108 mmol/L 99-109 [facility] Carbon dioxide, total [Moles/volume] in Serum or Plasma 27 mmol/L 20 -31 N [facility] Anion gap in Serum or Plasma 9 mmol/L 8-16 [facility] Glucose [Mass/volume] in Serum or Plasma 96 mg/dL 74-106 [facility] Creatinine 0.7 mg/dL 0.5-1.1 [facility] Glomerular filtration rate/1.73 sq M.pre dicted [Volume Rate/Area] in Serum or Plasma Greater Than 60 ABOVE 60 [facility] Alanine aminotransferase [Enzymatic acti vity/volume] in Serum or Plasma by With P-5'-P 49 U/L 10-49 N [facility] ital Aspartate aminotransferase [Enzymatic ac tivity/volume] in Serum or Plasma by With P-5'-P 30 U/L 0-33 N [facility] pital Alkaline phosphatase [Enzymatic activity/volume] in Serum or Plasma 71 U/L 45-129 N [facility] Calcium [Mass/volume] in Serum or Plasma 9.5 mg/dL 8.5-10.1 N [facility] Bilirubin.total [Mass/volume] in Serum or Plasma 0.5 mg/dL 0.3-1.2 N [facility] Albumin [Mass/volume] in Serum or Plasma by Bromocresol purple (BCP) dye binding method 4.0 g/dL 3.2-4.8 N [facility] ital Protein [Mass/volume] in Serum or Plasma 7.4 g/dL 5.7-8.2 N [facility] ID Date Data Source [id number] 03/19/2020 05:38:00 PM EDT [facility] Name Value Range Interpretation Code Description Data Jodie rce(s) Supporting Document(s) Amylase [Enzymatic activity/volume] in Serum or Plasma 70 U/L 30- 118 N [facility] ID Date Data Source [id number] 03/19/2020 05:38:00 PM EDT [facility] Name Value Range Interpretation Code Description Data Jodie rce(s) Supporting Document(s) Lipase [Enzymatic activity/volume] in Serum or Plasma 112 U/L 73-3 93 N [facility] ID Date Data Source [id number] 03/19/2020 05:03:00 PM EDT [facility] ED Physician Documentation NAME: Eryn Navarro BRITTANIE : 1990 AGE: 30 MR#: [id number] SERVICE DATE: 03/19/[address]: Emiliano Delarosa MD PRIMARY CARE DR: Zabrina Liu [facility] ROOM#: HPI (Adult, General) General Chief [...] % (Auto) 50.8, Lymph % (Auto) 32.7, [place] % (Auto) 8.1, Eos % (Auto) 7.4 [...] Appearance Clear, Urine pH 7.0, Ur Specific [place] 1.009,Urine Protein Negative, Urine Ketones Negative, Urine [...] rce(s) Supporting Document(s) ID Date Data Source [id number] 03/07/2020 12:17:00 PM EDT [facility] Method of Collection:: Clean Catch Name Value Range Interpretation Code Description Data Jodie rce(s) Supporting Document(s) Color of Urine [facility] Appearance of Urine CLEAR [facility] pH of Urine by Test strip 7.0 5-8 [facility] Specific gravity of Urine by Refractometry 1.003 1.005 -1.030 Abnormal (applies to non-numeric results) [facility] Leukocyte esterase [Presence] in Urine by Test strip NEGAT JADYN [facility] Nitrite [Presence] in Urine by Test strip NEGATIVE [facility] Protein [Presence] in Urine by Test strip NEGATIVE [facility] Glucose [Mass/volume] in Urine by Automated test strip NEGATIVE NEG ATIVE [facility] Ketones [Presence] in Urine by Test strip NEGATIVE [facility] Urobilinogen [Presence] in Urine 0.2-1 EU/dl [facility] Bilirubin.total [Presence] in Urine by Automated test strip NEGATIVE [facility] Erythrocytes [#/volume] in Urine by Test strip NEGATIVE NEGATIVE [facility] URINE MICROSCOPIC? (CIF) NO [facility] ID Date Data Source [id number] 03/07/2020 09:56:00 AM EDT [facility] Patient Name: Eryn Navarro Lm : 1990 Sex: F Pt Unit #: [id number] Location:[facility] Provider: Visit Date/Time: 03/07/20 Primary Insurance: [facility] Secondary Insurance: Self Pay Intake Vital Signs [...] the pain is from thator something else. Steel Cutter Required: No Accompanied by: Self / Same [...] Screening Screening Have you traveled outside of [facility] or [facility] in the last 14 days.: No [...] Yes drive intox or ride w/ intox tow car driver: No working smoke detector in home: [...] - Pelvic and perineal pain SNOMED Code(s): 78035447 Category: Medical Plan - Marito Bosch MD: [...] Female pelvic inflammatory disease, unspecified SNOMED Code(s): 883873738 Category: Medical Orders Other Medications: New: doxycycline [...] rce(s) Supporting Document(s) ID Date Data Source [id number] 02/04/2020 08:17:00 AM EDT [facility] SP DESC: IUD CULTURENO ANAEROBIC ORGANIS MS ISOLATED Name Value Range Interpretation Code Description Data Jodie rce(s) Supporting Document(s) Bacteria identified in Genital specimen by Aerobe culture SP DESC: IUD CULTURE [facility] No N. Gonorrhoaea isolatedFEW Staph Spp. coag neg ID Date Data Source [id number] 02/04/2020 08:17:00 AM EDT [facility] SP DESC: IUD CULTURENO ANAEROBIC ORGANIS MS ISOLATED Name Value Range Interpretation Code Description Data Jodie rce(s) Supporting Document(s) ID Date Data Source [id number] 02/01/2020 11:03:00 AM EDT [facility] Patient Name: ERYN NAVARRO LM : 1990 Sex: F Pt Unit #: [id number] Location:[facility] Provider: Visit Date/Time: 02/01/20 Primary Insurance: [facility] Secondary Insurance: Self Pay ADDENDUM Labs: 01/22/2020: [...] procedure. IUD removed and replaced with Mirena, [facility] #: [id number], lot #: [id number], exp: 01/2022. Remove by 01/31/2025. Steel Cutter Required: No Accompanied by: Self / Same [...] Yes drive intox or ride w/ intox tow car driver: No working smoke detector in home: [...] ectopic 2010, she was told by the DIRECT CARE COUNSELOR at that time, that she had endometriosis, [...] reinsertion of intrauterine contraceptive device SNOMED Code(s): 175144597 Category: Medical Plan - Marito Bosch MD: [...] - Pelvic and perineal pain SNOMED Code(s): 48741355 Category: Medical Plan - Marito Bosch MD: [...] rce(s) Supporting Document(s) ID Date Data Source [id number] 01/29/2020 02:09:00 PM EDT [facility] Patient Name: ERYN NAVARRO LM : 1990 Sex: F Pt Unit #: [id number] Location:[facility] Provider: Visit Date/Time: 01/29/20 Primary Insurance: [facility] Secondary Insurance: Self Pay Intake Vital Signs [...] on 01/22/2020. Pt's PAP is still pending. Steel Cutter Required: No Accompanied by: Self / Same [...] Yes drive intox or ride w/ intox tow car driver: No working smoke detector in home: [...] by Zev Figueroa DO> Date/Time Signed: 01/29/20 0592 Name Value Range Interpretation Code Description Data Jodie rce(s) Supporting Document(s) ID Date Data Source [id number] 01/23/2020 08:09:00 AM EDT [facility] [address] [place] [id number] [phone] NAME SEX PT STATUS ACCOUNT NUMBER ERYN NAVARRO LM REG REF [id number] ORDERING PHYSICIAN LOCATION MEDICAL RECORD NO. Marito Bosch MD [id number] ATTENDING PHYSICIAN DATE OF DATE OF EXAM/TIME [...] rce(s) Supporting Document(s) ID Date Data Source [id number] 01/30/2020 07:47:00 AM EDT [facility] LAST MENSTRUAL PERIOD [id number] on Technique: BRUSH-SPATULAPATIENT INFORMATION: IUDPREVIOUS CYTOLOGY: NEGATIVEDATES AND RESULTS: 2018 pap negativePREVIOUS TREATMENT: NONEBody Site: CERVIX Name Value Range Interpretation Code Description Data Jodie rce(s) Supporting Document(s) Microscopic observation [Identifier] in Cervix by Cyto stain.thin pre p [facility] ID Date Data Source [id number] 01/24/2020 06:06:00 AM EDT [facility] NegativeNegativePerformed at: [facility] [address] [id number] Director: Shanell Kyle MD, Phone: [phone] @01/22/20 1658: UA W/ MICRO added. RFLXG = UMIC CIF.Method of Collection:: Clean Catch @01/22/20 1728: Urine culture added. RFL XG = CULT.ADD. @01/22/20 1658: UA W/ MICRO added. RFLXG = UMIC CIF.Method of Collection:: Clean Catch Name Value Range Interpretation Code Description Data [facility] rce(s) Supporting Document(s) Trichomonas vaginalis DNA [Presence] in Unspecified specimen by Probe and target amplification method Negative [facility] Performed at: [facility] Her[address] [place] [address] [id number] Director: Shanell Kyle MD, Phone: [phone] Gardnerella vaginalis rRNA [Presence] in Genital specimen by DNA probe Negative [facility] Chano sp rRNA [Presence] in Vaginal fluid by DNA probe N egative [facility] ID Date Data Source [id number] 01/24/2020 06:06:00 AM EDT [facility] NegativeNegativePerformed at: [facility] [address] [id number] Director: Shanell Kyle MD, Phone: [phone] @01/22/20 1658: UA W/ MICRO added. RFLXG = UMIC CIF.Method of Collection:: Clean Catch @01/22/20 1728: Urine culture added. RFL XG = CULT.ADD. @01/22/20 1658: UA W/ MICRO added. RFLXG = UMIC CIF.Method of Collection:: Clean Catch Name Value Range Interpretation Code Description Data Jodie rce(s) Supporting Document(s) ID Date Data Source [id number] 01/22/2020 05:28:00 PM EDT [facility] NegativeNegativePerformed at: [facility] - [facility] [address] [id number] Director: Shanell Kyle MD, Phone: [phone] @01/22/20 1658: UA W/ MICRO added. RFLXG = UMIC CIF.Method of Collection:: Clean Catch @01/22/20 1728: Urine culture added. RFL XG = CULT.ADD. @01/22/20 1658: UA W/ MICRO added. RFLXG = UMIC CIF.Method of Collection:: Clean Catch Name Value Range Interpretation Code Description Data [facility] rce(s) Supporting Document(s) Color of Urine [facility] Appearance of Urine CLEAR [facility] pH of Urine by Test strip 6.5 5-8 [facility] Specific gravity of Urine by Refractometry 1.006 1.005-1.030 [facility] Leukocyte esterase [Presence] in Urine by Test strip NEGATIVE Abnormal (applies to non-numeric results) [facility]A Culture has been added to this specimen per established criteria Nitrite [Presence] in Urine by Test strip NEGATIVE [facility] Protein [Presence] in Urine by Test strip NEGATIVE [facility] Glucose [Mass/volume] in Urine by Automated test strip NEGATIVE NEG ATIVE [facility] Ketones [Presence] in Urine by Test strip NEGATIVE [facility] Urobilinogen [Presence] in Urine 0.2-1 EU/dl [facility] Bilirubin.total [Presence] in Urine by Automated test strip NEGATIVE [facility] Erythrocytes [#/volume] in Urine by Test strip NEGATIVE NEGATIVE [facility] URINE MICROSCOPIC? (CIF) Microscopic Added [facility] ID Date Data Source [id number] 01/23/2020 01:46:00 PM EDT [facility] NegativeNegativePerformed at: [facility] [address] [id number] Director: Shanell Kyle MD, Phone: [phone] @01/22/20 1658: UA W/ MICRO added. RFLXG = UMIC CIF.Method of Collection:: Clean Catch @01/22/20 1728: Urine culture added. RFL XG = CULT.ADD. @01/22/20 1658: UA W/ MICRO added. RFLXG = UMIC CIF.Method of Collection:: Clean Catch Name Value Range Interpretation Code Description Data Jodie rce(s) Supporting Document(s) Bacteria identified in Urine by Culture [facility] ID Date Data Source [id number] 01/22/2020 05:28:00 PM EDT [facility] NegativeNegativePerformed at: [facility] [address] [id number] Director: Shanell Kyle MD, Phone: [phone] @01/22/20 1658: UA W/ MICRO added. RFLXG = UMIC CIF.Method of Collection:: Clean Catch @01/22/20 1728: Urine culture added. RFL XG = CULT.ADD. @01/22/20 1658: UA W/ MICRO added. RFLXG = UMIC CIF.Method of Collection:: Clean Catch Name Value Range Interpretation Code Description Data Jodie rce(s) Supporting Document(s) Leukocytes [#/volume] in Urine by Manual count 8-12 /hpf 0-5 Above high normal [facility] Cells [Type] in Urine sediment by Light microscopy [facility] Bacteria [Presence] in Urine sediment by Light microscopy NEGATIVE Above high normal [facility] ID Date Data Source [id number] 01/22/2020 02:37:00 PM EDT [facility] Patient Name: ERYN NAVARRO LM : 1990 Sex: F Pt Unit #: [id number] Location:[facility] Provider: Visit Date/Time: 01/22/20 Primary Insurance: [facility] Secondary Insurance: Self Pay Intake Vital Signs [...] after that but her sx have returned. 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 For the past 1 week has [...] Unspecified ovarian cyst, left side SNOMED Code(s): 061505442 Category: Medical Plan - Marito Bosch MD: 1. Cystic ovarian mass in adnexa, predominantly in left adnexa into the midline. 2. Rule out ovarian cyst. 3. Pelvic sonogramTV/AB. Orders Other Orders: Orders: PAP w HPV-Genotype if Positive 01/22/20 Z12.4 Follow Up: 1 Week Electronically Signed By: <Electronically signed by Marito Bosch MD> Date/Time Signed: 01/23/20 4988 Name Value Range Interpretation Code Description Data Jodie rce(s) Supporting Document(s) ID Date Data Source [id number] 11/05/2019 01:57:00 PM [facility] [address] [place] [address] [phone] NAME SEX PT STATUS ACCOUNT NUMBER ERYN NAVARRO LM REG REF [id number] ORDERING PHYSICIAN LOCATION MEDICAL RECORD NO. Davide López DO [id number] ATTENDING PHYSICIAN DATE OF DATE OF EXAM/TIME [...] Trans Dt/Tm: Trans by: DT Prt Dt/Tm: [id number]: Total DLP = 0.00 mGy-cm 0641-1532: Total Radiation Dose = 0.0000 mSv Lifetime Dose: 0 mSv Name Value Range Interpretation Code Description Data Jodie rce(s) Supporting Document(s) ID Date Data Source [id number] 11/01/2019 02:10:[address] [facility] Name Value Range Interpretation Code Description Data Jodie rce(s) Supporting Document(s) Hemoglobin A1c % 5.3 % 4.0-6.0 N [facility] The following ranges may be u sed for interpretation of results: HGBA1C degree of glucose control: Greater than 8%: Action Suggested * Less than 7%: Goal of Diabetic Therapy Less than 6%: NormalFactors such as duration of diabetes, adherence to therapyand the age of the patient should also be considered inassessing the degree of blood glucose control.* High risk of developing custodial complications such asretinopathy, nephropathy, neuropathy, cardiopathy, etc. Some danger of hypoglycemic reaction in Type I diabetics.Some glucose intolerant individuals and "Sub Clinical"diabetics may demonstrate HGBA1C levels in this area. Glucose mean value [Moles/volume] in Blood Estimated f rom glycated hemoglobin 105 mg/dL [facility] An A1C of 7% - the goal of diabetic ther apy - is equivalentto an EAG of 154 mg/dl. ID Date Data Source [id number] 11/01/2019 02:17:[address] [facility] Name Value Range Interpretation Code Description Data Jodie rce(s) Supporting Document(s) Follitropin [Units/volume] in Serum or Plasma 5.9 [iU]/L [facility] FSH REFERENCE RANGE IU/L Males Ages 13 - 70 yrs 1.4 - 18.1 Normally Menstruating Females Follicular Phase 2.5 - 10.2 Mid-Cycle Peak 3.4 - 33.4 Luteal Phase 1.5 - 9.1 Post-menopausal Females 23.0 - 116.3 Less Than 0.3 ID Date Data Source [id number] 11/02/2019 08:06:[address] [facility] Name Value Range Interpretation Code Description Data Jodie rce(s) Supporting Document(s) Testosterone 41 ng/dL 8-48 [facility] Free Testosterone (Direct) 8.5 pg/mL 0.0-4.2 Above high normal [facility] Performed at: RN - [facility] [id number] [id number] Director: Shanell Kyle MD, Phone: [phone] ID Date Data Source 11/01/2019 02:17:[address] [facility] Name Value Range Interpretation Code Description Data Jodie rce(s) Supporting Document(s) Lutropin [Units/volume] in Serum or Plasma 7.8 [iU]/L [facility] LH REFERENCE RANGE IU/L Males 20 - 70yrs 1.5 - 9.3 Greater than 70yrs 3.1 - 34.6 Normally Menstruating Females Follicular Phase 1.9 - 12.5 Mid-Cycle Peak 8.7 - 76.3 Luteal Phase 0.5 - 16.9 Postmenopausal Females 15.9 - 54.0 Less Than 0.1 - 1.5 Contraceptives 0.7 - 5.6 Children Less Than 0.1 - 6.0 ID Date Data Source [id number] 11/01/2019 02:17:[address] [facility] Name Value Range Interpretation Code Description Data Jodie rce(s) Supporting Document(s) Prolactin [Mass/volume] in Serum or Plasma 4.3 ng/mL [facility] PROLACTIN REFERENCE RANGE ng/mL Males 2.1 - 17.7 Females Non 2.8 - 29.2 9.7 - 208.5 Postmenopausal 1.8 - 20.3 ID Date Data Source [id number] 11/01/2019 02:17:[address] [facility] Name Value Range Interpretation Code Description Data Jodie rce(s) Supporting Document(s) Thyroxine (T4) free [Mass/volume] in Serum or Plasma 0.91 ng/dL 0.89- 1.76 N [facility] ID Date Data Source [id number] 11/01/2019 02:17:[address] [facility] Name Value Range Interpretation Code Description Data Jodie rce(s) Supporting Document(s) Thyrotropin [Units/volume] in Serum or Plasma by Detec tion limit <= 0.005 mIU/L 0.72 u[iU]/mL 0.35-5.50 [facility] ID Date Data Source [id number] 11/02/2019 08:06:[address] [facility] Name Value Range Interpretation Code Description Data Jodie rce(s) Supporting Document(s) Trichomonas vaginalis DNA [Presence] in Unspecified specimen by Probe and target amplification method Negative [facility] Performed at: RN - [facility] [place] [id number] Director: Shanell Kyle MD, Phone: [phone] Gardnerella vaginalis rRNA [Presence] in Genital specimen by DNA probe Negative [facility] Chano sp rRNA [Presence] in Vaginal fluid by DNA probe N egative [facility] ID Date Data Source [id number] 11/01/2019 12:01:[address] [facility] Patient Name: ERYN NAVARRO LM : 1990 Sex: F Pt Unit #: [id number] Location:[facility] Provider: Visit Date/Time: 11/01/19 Primary Insurance: [facility] Secondary Insurance: Self Pay Intake Vital Signs [...] Obtained a urine. 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 Appearance of Urine CLEAR [facility] pH of Urine by Test strip 7.0 5-8 [facility] Specific gravity of Urine by Refractometry 1.006 1.005-1.030 [facility] Leukocyte esterase [Presence] in Urine by Test strip NEGAT JADYN [facility] Nitrite [Presence] in Urine by Test strip NEGATIVE [facility] Protein [Presence] in Urine by Test strip NEGATIVE [facility] Glucose [Mass/volume] in Urine by Automated test strip NEGATIVE NEG ATIVE [facility] Ketones [Presence] in Urine by Test strip NEGATIVE [facility] Urobilinogen [Presence] in Urine 0.2-1 EU/dl [facility] Bilirubin.total [Presence] in Urine by Automated test strip NEGATIVE [facility] Erythrocytes [#/volume] in Urine by Test strip NEGATIVE NEGATIVE [facility] URINE MICROSCOPIC? (CIF) NO [facility] Procedure Social History Code Duration Value Status Description Data Source(s ) Smoking 12/09/2020 12:00:00 AM EST Never Smoker completed Never S moker eCW1 ([facility]) Alcohol intake 12/04/2020 12:00:00 AM EST Yes completed [facility] Smoking 12/04/2020 12:00:00 AM EST Never smoker completed Never s [facility] 11/17/2020 02:46:00 PM EST No completed No [facility] 11/17/2020 02:46:00 PM EST No completed No [facility] 11/17/2020 02:46:00 PM EST Never smoker completed Never s [facility] Smoking 11/17/2020 02:46:00 PM EST Never smoker completed Never s [facility] Alcohol intake 11/15/2020 12:00:00 AM EST Yes completed [facility] Smoking 11/15/2020 12:00:00 AM EST Never smoker completed Never s [facility] Smoking 10/24/2020 12:00:00 AM EST Patient has never smoked co mpleted Patient has never smoked MEDENT ([facility]) Smoking 10/01/2020 12:00:00 AM EST Never Smoker completed Never S moker eCW1 ([facility]) Smoking 10/01/2020 12:00:00 AM EST Never Smoker completed Never S moker eCW1 ([facility]) Alcohol intake 09/30/2020 12:00:00 AM EST Current non-d petra of alcohol (finding) completed Current non-drinker of alcohol (finding) [facility] Tobacco use and exposure 09/30/2020 12:00:00 AM EST Never used co mpleted Never used [facility] Smoking 09/30/2020 12:00:00 AM EST Never smoker completed Never s [facility] Smoking 09/11/2020 12:00:00 AM EDT Never Smoker completed Never S moker eCW1 ([facility]) Smoking 09/11/2020 12:00:00 AM EDT Never Smoker completed Never S moker eCW1 ([facility]) Smoking 09/03/2020 12:00:00 AM EDT Never Smoker completed Never S moker eCW1 ([facility]) 04/02/2020 11:27:00 AM EDT No completed [facility] 04/02/2020 11:27:00 AM EDT No completed No [facility] 03/19/2020 04:36:00 PM EDT Never smoker completed Never s [facility] Smoking 03/19/2020 04:36:00 PM EDT Never smoker completed Never s [facility] 03/19/2020 04:36:00 PM EDT Never smoker completed Never s [facility] Smoking 03/19/2020 04:36:00 PM EDT Never smoker completed Never s [facility] 03/19/2020 04:36:00 PM EDT Never smoker completed Never s [facility] Smoking 03/19/2020 04:36:00 PM EDT Never smoker completed Never s [facility] 03/19/2020 04:36:00 PM EDT Never smoker completed Never s [facility] Smoking 03/19/2020 04:36:00 PM EDT Never smoker completed Never s [facility] 03/07/2020 10:25:00 AM EDT No completed [facility] 03/07/2020 10:25:00 AM EDT No completed [facility] Vital Signs ID Date Data Source UNK Name Value Range Interpretation Code Description Data Source(s) Diastolic blood pressure 72 mm[Hg] 72 mm[Hg] eCW1 ([facility]) Systolic blood pressure 128 mm[Hg] 128 mm[Hg] e CW1 ([facility]) Respiratory rate 18 /min 18 /min eCW1 ([facility]) Heart rate 71 /min 71 /min eCW1 ([facility]) Body mass index (BMI) [Ratio] 38.03 kg/m2 38.03 kg/m2 eCW1 ([facility]) Body height 64 [in_i] 64 [in_i] eCW1 [facility] Body weight 221.6 [lb_av] 221.6 [lb_av] eCW1 ([facility]) Body mass index (BMI) [Ratio] 37.08 kg/m2 37.08 kg/m2 [facility] Body weight 97.977 kg 97.977 kg [facility] Body height 162.6 cm 162.6 cm [facility] Oxygen saturation in Arterial blood by Pulse oximetry 97 % 97 % [facility] Body mass index (BMI) [Ratio] 38.11 kg/m2 38.11 kg/m2 [facility] Body weight 100.699 kg 100.699 kg [facility] Body height 162.6 cm 162.6 cm [facility] Heart rate 72 /min 72 /min [facility] Diastolic blood pressure 90 mm[Hg] 90 mm[Hg] [facility] Systolic blood pressure 130 mm[Hg] 130 mm[Hg] [facility] Diastolic blood pressure--sitting 93 mm[Hg] 93 mm[Hg] MEDENT ([facility]) [place], large cuff/Ra Systolic blood pressure--sitting 130 mm[Hg] 130 mm[Hg] MEDENT ([facility]) [place], large cuff/Ra Heart rate 70 /min 70 /min MED[facility] ([facility]) Body mass index (BMI) [Ratio] 37.4 kg/m2 37.4 k g/m2 MEDENT ([facility]) Body height 64 [in_i] 64 [in_i] [facility] 5'4" Body weight 218.00 [lb_av] 218.00 [lb_av] MEDEN T ([facility]) Diastolic blood pressure 70 mm[Hg] 70 mm[Hg] eCW1 ([facility]) Systolic blood pressure 132 mm[Hg] 132 mm[Hg] e CW1 ([facility]) Body temperature 97.8 [degF] 97.8 [degF] eCW1 ( [facility]) Respiratory rate 18 /min 18 /min eCW1 ([facility]) Heart rate 97 /min 97 /min eCW1 ([facility]) Body mass index (BMI) [Ratio] 37.00 kg/m2 37.00 kg/m2 eCW1 ([facility]) Body height 64 [in_i] 64 [in_i] eCW1 ([facility] Body weight 97.7 kg 97.7 kg eCW1 ([facility] Body weight 215.6 [lb_av] 215.6 [lb_av] eCW1 ([facility]) Diastolic blood pressure 78 mm[Hg] 78 mm[Hg] eCW1 ([facility]) Systolic blood pressure 132 mm[Hg] 132 mm[Hg] e CW1 ([facility]) Body mass index (BMI) [Ratio] 37.24 kg/m2 37.24 kg/m2 eCW1 ([facility]) Body height 64 [in_i] 64 [in_i] eCW1 ([facility] Body weight 217 [lb_av] 217 [lb_av] eCW1 ([facility]) Diastolic blood pressure 80 mm[Hg] 80 mm[Hg] eCW1 ([facility]) Systolic blood pressure 130 mm[Hg] 130 mm[Hg] e CW1 ([facility]) Body mass index (BMI) [Ratio] 36.93 kg/m2 36.93 kg/m2 eCW1 ([facility]) Body height 64 [in_i] 64 [in_i] eCW1 ([facility] Body weight 97.61 kg 97.61 kg eCW1 ([facility] Body weight 215.2 [lb_av] 215.2 [lb_av] eCW1 ([facility]) Diastolic blood pressure 78 mm[Hg] 78 mm[Hg] eCW1 ([facility]) Systolic blood pressure 130 mm[Hg] 130 mm[Hg] e CW1 ([facility]) Body mass index (BMI) [Ratio] 36.9 kg/m2 36.9 k g/m2 eCW1 ([facility]) Body height 64 [in_i] 64 [in_i] eCW1 ([facility]) Body weight 215 [lb_av] 215 [lb_av] eCW1 ([facility]) Diastolic blood pressure 88 mm[Hg] 88 mm[Hg] [place] ([facility]) Systolic blood pressure 136 mm[Hg] 136 mm[Hg] G REENWAY ([facility]) Oxygen saturation in Arterial blood by Pulse oximetry 98 % 98 % [place] ([facility]) Body temperature 97.9 [degF] 97.9 [degF] [facility] ([facility]) Respiratory rate 18 /min 18 /min [place] ([facility]) Heart rate rhythm 1 1 [place]UR[place] Y ([facility]) Heart rate 75 /min 75 /min [place] ([facility]) ID Date Data Source [id number] 10/07/2020 10:03:57 AM [facility] Name Value Range Interpretation Code Description Data Source(s) WEIGHT RECORDED 218 lb 218 lb [facility] Body height Measured 64.02 in 64.02 in [facility] Patient Treatment Plan of Care Planned Activity Planned Date Details Description Data Source (s) Aspirin 81 MG Delayed Release Oral Tablet 10/23/2020 12:00:00 AM [facility] Amoxicillin 500 MG Oral Capsule 12/29/2019 12:00:00 AM [facility] ([facility]) Fluconazole 150 MG Oral Tablet [Diflucan] 12/29/2019 12:00:00 AM [facility] ([facility]) Cyclobenzaprine hydrochloride 5 MG Oral Tablet 10/03/2019 12:00:00 AM [facility] Fluconazole 150 MG Oral Tablet [Diflucan] 09/25/2019 12:00:00 AM [facility] ([facility]) Amoxicillin 500 MG Oral Capsule 09/25/2019 12:00:00 AM [facility]) Levonorgestrel [id number] MG/HR Drug Implant [facility] Levothyroxine Sodium 0.025 MG Oral Tablet [facility]
--- OUTSIDE RECORDS SUMMARY | 2020-12-19 11:28 | CCD ---
Author Author [facility] Organization [facility] Address Unknown Phone Unavailable Care Team Providers Care Code Enforcement Officer Name Role Phone Granger II, Luis Miguel Sullivan M.D. Unavailable Unavailable Granger II, Luis Miguel Sullivan M.D. Unavailable Unavailable Granger II, Luis Miguel Sullivan M.D. Unavailable Unavailable Granger II, Luis Miguel Sullivan M.D. Unavailable Unavailable Granger II, Luis Miguel Sullivan M.D. Unavailable Unavailable Granger II, Luis Miguel Sullivan M.D. Unavailable Unavailable Grnager II, Luis Miguel Sullivan M.D. Unavailable Unavailable [...] COLLINS SANCHEZ MD Unavailable Unavailable Simon MARTINEZ INTERLINE CLERK-COMMERCIAL ILLUSTRATOR-C Unavailable Unava ilable KOPIDLANSKYSimon INTERLINE CLERK-COMMERCIAL ILLUSTRATOR-C Unavailable Unava ilable KOPIDLRIKKIKYSimon INTERLINE CLERK-COMMERCIAL ILLUSTRATOR-C Unavailable Unava ilable KOPIDLANSKYSimon INTERLINE CLERK-COMMERCIAL ILLUSTRATOR-C Unavailable Unava ilable KOPIDLANSKYSimon INTERLINE CLERK-COMMERCIAL ILLUSTRATOR-C Unavailable Unava ilable KOPIDLANSKYSimon INTERLINE CLERK-COMMERCIAL ILLUSTRATOR-C Unavailable Unava ilable KOPIDLANSKYSimon INTERLINE CLERK-COMMERCIAL ILLUSTRATOR-C Unavailable Unava ilable KOPIDLRIKKIKYSimonIE INTERLINE CLERK-COMMERCIAL ILLUSTRATOR-C Unavailable Unava ilable KOPIDLANSKY, Simon HOLLAND INTERLINE CLERK-COMMERCIAL ILLUSTRATOR-C Unavailable Unava ilable KOPIDLANSKY, Simon HOLLAND INTERLINE CLERK-COMMERCIAL ILLUSTRATOR-C Unavailable Unava ilable KOPIDLANSKY, Simon HOLLAND INTERLINE CLERK-COMMERCIAL ILLUSTRATOR-C Unavailable Unava ilable KOPIDLANSKY, Simon HOLLAND APRN-COMMERCIAL ILLUSTRATOR-C Unavailable Unava ilable KOPIDLANSKY, Simon HOLLAND INTERLINE CLERK-COMMERCIAL ILLUSTRATOR-C Unavailable Unava ilable KOPIDLANSKY, Simon HOLLAND INTERLINE CLERK-COMMERCIAL ILLUSTRATOR-C Unavailable Unava ilable KOPIDLANSKY, Simon HOLLAND INTERLINE CLERK-COMMERCIAL ILLUSTRATOR-C Unavailable Unava ilable KOPIDLANSKY, Simon HOLLAND APRN-COMMERCIAL ILLUSTRATOR-C Unavailable Unava ilable KOPIDLANSKY, Simon HOLLAND INTERLINE CLERK-COMMERCIAL ILLUSTRATOR-C Unavailable Unava ilable KOPIDLANSKY, Simon HOLLAND APRN-COMMERCIAL ILLUSTRATOR-C Unavailable Unava ilable KOPIDLANSKY, Simon HOLLAND INTERLINE CLERK-COMMERCIAL ILLUSTRATOR-C Unavailable Unava ilable KOPIDLANSKY, Simon HOLLAND INTERLINE CLERK-COMMERCIAL ILLUSTRATOR-C Unavailable Unava ilable KOPIDLANSKY, Simon HOLLAND INTERLINE CLERK-COMMERCIAL ILLUSTRATOR-C Unavailable Unava ilable KOPIDLANSKY, Simon HOLLAND INTERLINE CLERK-COMMERCIAL ILLUSTRATOR-C Unavailable Unava ilable Granger II, Luis Miguel [...] MD Unavailable Unavailable RINKUMORGAN MD Unavailable Unavailable RINKUOMRGAN MD Unavailable Unavailable RINKUMORGAN MD Unavailable Unavailable [...] Unavailable Unavailable SEBAS, BASIA SOLIS Unavailable Unavailable SBEAS, BASIA SOLIS Unavailable Unavailable SEBAS, BASIA SOLIS [...] Unavailable Unavailable SEBAS, BASIA SOLIS Unavailable Unavailable SBEAS, BASIA SOLIS Unavailable Unavailable SEBAS, BASIA SOLIS Unavailable Unavailable SEBAS, FLOR MD Unavailable Unavailable SEBAS, FLOR MD Unavailable Unavailable SEBAS, FLOR MD Unavailable Unavailable SEBAS, FLOR MD Unavailable Unavailable SEBAS, FLOR MD Unavailable Unavailable SEBAS, FOLR MD Unavailable Unavailable SEBAS, FLOR MD Unavailable [...] Granger II, A Nate M.D. Unavailable Unavailable Grangre II, A Nate M.D. Unavailable Unavailable Granger [...] is protected by Article 27-F of the [facility] Public Health law. If you continue you may have access to information: Regarding HIV / AIDS; Provided by facilities licensed or operated by the [facility] Office of Mental Health; or Provided by the [facility] Office for People With Developmental Disabilities. If such information is present, then the following [facility] mandated warning applies: This information has [...] law may result in a fine or chcf sentence or both. A general authorization for the release of medical or other information is NOT sufficient authorization for further disc losure. Allergies and Adverse Reactions Type Description Substance Reaction Status Data Source(s ) Propensity to adverse reactions NICKEL nickel sulfate Active [facility] Propensity to adverse reactions adhesives Propensity to adverse reactions rash Active eCW1 ([facility]) Propensity to adverse reactions adhesives Propensity to adverse reactions rash Active eCW ([facility]) Propensity to adverse reactions adhesives Propensity to adverse reactions rash Active [facility] ([facility]) Propensity to adverse reactions adhesives Propensity to ad verse reactions Unknown Active eCW (Pending sale to [facility]) Propensity to adverse reactions adhesives Propensity to ad verse reactions Unknown Active eCW (Pending sale to [facility]) Propensity to adverse reactions adhesives Propensity to ad verse reactions Unknown Active eCW (Pending sale to [facility]) Drug allergy Sulfa (Sulfonamide Antibiotics) Sulfa (Sulfonami de Antibiotics) [facility] BREATH [facility] Allergy SEASONAL ALLERGIES SEASONAL ALLERGIES [facility] Family History Family Member Name Family Member Gender Family Member Status Date o f Status Description Data Source(s) Unknown Condition [facility] Unknown Condition [facility] Unknown Condition [facility] Unknown Condition [facility] Unknown Condition [facility] Unknown Condition [facility] Unknown Condition [facility] Unknown Condition [facility] Unknown Condition [facility] Unknown Condition [facility] Unknown Condition [facility] Unknown Condition [facility] Unknown Condition [facility] Unknown [facility] Unknown [facility] Unknown [facility] Unknown [facility] Encounters Encounter Providers Location Date Indications Data Source(s ) Outpatient Attender: SABINE REED MD 01/12/2021 12:00:00 A M [facility] Office Visit Attender: MORGAN DOBBS MD Main office - [facility] 12/09/2020 12:30:00 PM EST MEDENT ([facility], ) Outpatient [address] [place] [address], [facility] [id number] 12/09/2020 12:00:00 AM EST eCW1 ([facility]ending sale to [facility]) Outpatient Attender: BASIA MULLEN MD [id number] 12/04/2020 12:00:00 AM EST [facility] Outpatient Attender: Chelo Chambers MDAdmitter: Chelo wheeler MD [email or web address] 11/28/2020 08:34:22 AM [facility] Outpatient Attender: ERYN MICHELLE 11/25/2020 07:30:00 AM EST D73.5,E06.3 [facility] D73.5,E06.3 Outpatient Attender: ERYN FISCHER CReferrer: Zabrina CAREY 11/19/2020 08:20:00 AM EST - 11/19/2020 09:50:00 AM EST [facility] Outpatient Attender: BASIA MULLEN MD [email or web address] [id number] 12:00:00 AM EST - 11/12/2020 04:21:28 PM EST [facility] Outpatient Attender: LUKE CARREON MD Main Office 10/24/2020 07:45:00 AM EST MEDENT ([facility]) Outpatient Attender: SABINE REED MD [id number] 10/08/2020 12:0 0:00 AM EST Systemic lupus erythematosus, unspecified [facility] Systemic lupus erythematosus, unspecifie d Outpatient Attender: SABINE REED MD [id number] 10/01/2020 12:0 0:00 AM EST Systemic lupus erythematosus, unspecified [facility] Systemic lupus erythematosus, unspecifie d Outpatient [address] [facility] [address] 10/01/2020 12:00:00 AM EST [facility]) [facility] [address] [facility] [address] [address] 09/12/2020 12:00:00 AM EDT [facility]CW1 ([facility]) Postop visit [address] [facility] [address] [address] 09/03/2020 12:00:00 AM EDT eCW1 ([facility]) Unknown [address] [facility] [address] [address] 09/02/2020 12:00:00 AM EDT eCW1 ([facility]) Outpatient Attender: Taryn Encarnacion MDReferrer: Nate Olmos rd II 08/20/2020 12:00:00 AM T [facility] Postop visit [address] [facility] [address] [address] 08/15/2020 12:00:00 AM EDT eCW1 ([facility]) Preadmit Attender: Nate Granger II 07/02/2020 0 7:30:00 AM EDT R10.2,N80.9/DIAGNOSTIC LAPAROSCOPY [id number] [facility] R10.2,N80.9/DIAGNOSTIC LAPAROSCOPY [id number] Outpatient Attender: Nate Granger IIReferrer: Zabrina CAREY 06/18/2020 11:48:00 AM EDT - 06/18/2020 12:57:[address] [facility] Outpatient Attender: Nate Granger II 05/30/2020 0 1:16:00 PM EDT CHANGE IN BOWEL HABITS,R10.2,R19.4 [facility] CHANGE IN BOWEL HABITS,R10.2,R19.4 Outpatient Attender: Nate Granger IIReferrer: Zabrina CAREY 05/28/2020 11:05:00 AM EDT - 05/28/2020 11:51:[address] [facility] Outpatient Attender: Nate Granger II 04/23/2020 1 1:58:00 AM EDT OVARIAN CYST [facility] OVARIAN CYST Outpatient Attender: Nate Granger II 04/02/2020 11:34:0 0 AM EDT R10.2 [facility] R10.2 Outpatient Attender: Nate Granger IIReferrer: Zabrina CAREY 04/02/2020 10:02:00 AM EDT - 04/02/2020 11:29:[address] [facility] Emergency Attender: Emiliano Delarosa MD 04/2020 04:29:00 PM EDT - 03/19/2020 06:39:00 PM EDT [facility] Patient discharged. Outpatient Attender: Marito Bosch MD 03/07/2020 12:05:0 0 PM EDT [facility] Outpatient Attender: Marito Bosch MDReferrer: Zabrina CAREY 03/07/2020 09:56:00 AM EDT - 03/07/2020 10:27:[address] [facility] Outpatient Attender: Marito Bosch MD 02/01/2020 11:30:0 0 AM EDT Z30.432 [facility] Z30.432 Outpatient Attender: Marito Bosch MDReferrer: Zabrina CAREY 02/01/2020 10:55:00 AM EDT - 02/01/2020 11:51:[address] [facility] Outpatient Attender: Zev Figueroa DOReferrer: Zabrina CAREY 01/29/2020 02:03:00 PM EDT - 01/29/2020 02:42:[address] [facility] Outpatient Attender: Marito Bosch MD 01/22/2020 0 3:43:00 PM EDT PELVIC PAIN,R10.2,Z12.4 [facility] PELVIC PAIN,R10.2,Z12.4 Outpatient Attender: Marito Bosch MDReferrer: Zabrina CAREY 01/22/2020 02:30:00 PM EDT - 01/22/2020 03:38:[address] [facility] Outpatient<td ID="encounterTypeDescripti [email or web address]">urgent visit</td><td>Abner Burger PA-C</td><td>[facility]</td><td>12/29/2019</td><td><content ID="[email or web address]">Otitis Media</content></td> Attender: Abner CAREY [facility] 12/29/2019 11:35:00 AM EST - 12/29/2019 11:59:00 PM EST Otitis Media [facility] ([facility]) Otitis Media CLINIC [email or web address] 12/27/2019 06:46:29 AM EST [facility] Attender: COLLINS SANCHEZ MDReferrer: Nate Olmos rd II [email or web address] 12/24/2019 12:00:00 AM EST [facility] Outpatient Attender: Nate Granger II 11/05/2019 1 2:24:00 PM EST PELVIC PAIN [facility] PELVIC PAIN Outpatient Attender: Davide López DO 11/01/2019 12:49:00 PM EST R30.9,R10.2,N89.8,R79.89 [facility] R30.9,R10.2,N89.8,R79.89 Outpatient Attender: Davide Burriserrer: Zabrina CAREY 11/01/2019 11:39:00 AM EST - 11/01/2019 12:38:[address] [facility] Immunizations Vaccine Date Status Description Data Source(s) Pneumococcal conjugate PCV 13 05/07/2020 12:00:00 AM EDT complet ed pneumococcal conjugate PCV 13 [facility] Medications Medication Brand Name Start Date Product Form Dose Route Admi nistrative Instructions Pharmacy Instructions Status Indications Reaction Description Data Source(s) topiramate 25 MG Oral Tablet [Topamax] Topamax 12/09/2020 12:00:00 A M EST active [facility] ([facility]) 25 mg 12/09/2020 [...] 12/09/2020 12:00:00 AM EST ORAL active [facility]ENT ([facility]) Aspirin 81 MG Chewable Tablet Aspirin ([facility]) 81 mg tablet,chewable Aspirin ([facility] Aspirin) 81 mg tablet,chewable 11/19/2020 08:35:43 AM EST 81 MG active [facility] 150 mg 11/19/2020 12:00:00 AM EST [...] AM EST Oral active Take by mouth [facility] Aspirin 81 MG Delayed Release Oral Tablet Aspirin 10/23/2020 1 2:00:00 AM EST ORAL active [facility] ([facility]) Levothyroxine Sodium 0.025 MG Oral Tablet Levothyroxine Sodi um 10/23/2020 12:00:00 AM EST ORAL active M EDENT ([facility]) 800 mg 07/28/2020 12:00:00 AM EDT tablet 30 TAKE ONE TABLET BY MOUTH THREE TIMES A DAY FOR PAIN TAKE ONE TABLET BY MOUTH THREE TIMES A DAY FOR PAIN SO LD: 07/29/2020 [facility] 100 mg 07/28/2020 12:00:00 AM EDT capsule 14 TAKE ONE CAPSULE BY MOUTH EVERY 12 HOURS TAKE ONE CAPSULE BY MOUTH EVERY 12 HOURS SOLD: 07/29/2020 [facility] 5-325 mg 07/28/2020 12:00:00 AM EDT tablet 20 TAKE ONE TABLET BY MOUTH EVERY 4 HOURS NEEDED FOR MILD/MODERATE PAIN (SCORE OF 1-7) MAXIMUM DAILY DOSE = SIX TABLETS TAKE ONE TABLET BY MOUTH EVERY 4 HOURS A S NEEDED FOR MILD/MODERATE PAIN (SCORE OF 1-7) MAXIMUM DAILY DOSE = SIX TABLETS SOLD: 07/29/2020 [facility] Phentermine Hydrochloride 37.5 MG Oral Tablet Phentermine 06/18/2020 01:26:11 PM EDT 37.5 MG [facility] Phentermine Hydrochloride 37.5 MG Oral Tablet Phentermine 06/18/2020 01:04:10 PM EDT 37.5 MG [facility] 37.5 mg 06/18/2020 12:00:00 AM EDT tablet 30 TAKE ONE TABLET BY MOUTH EVERY DAY FOR WEIGHT MANAGEMENT MAXIMUM DAILY DOSE = ONE TABLET TAKE ONE TABLET BY MOUTH EVERY DAY FOR WEIGHT MANAGEMENT MAXIMUM DAILY DOSE = ONE TABLET SOLD: 06/18/2020 [facility] 37.5 mg 06/18/2020 12:00:00 AM EDT [...] 12:59:19 PM E DT 25 MCG active [facility] Levothyroxine Sodium 0.025 MG Oral Table t Levothyroxine (Synthroid) 25 mcg tablet Levothyroxine (Synthroid) 25 mcg tablet 04/02/2020 12:59:19 PM E DT 25 MCG active [facility] Levothyroxine Sodium 0.025 MG Oral Table t Levothyroxine (Synthroid) 25 mcg tablet Levothyroxine (Synthroid) 25 mcg tablet 04/02/2020 12:59:19 PM E DT 25 MCG completed [facility] Cimetidine 800 MG Oral Tablet Cimetidine 04/02/2020 12:58:39 PM EDT 800 MG completed [facility] Cimetidine 800 MG Oral Tablet Cimetidine 04/02/2020 12:58:39 PM EDT 800 MG completed [facility] Cimetidine 800 MG Oral Tablet Cimetidine 04/02/2020 12:58:39 PM EDT 800 MG completed [facility] 24 HR Metformin hydrochloride 750 MG Extended Release Oral T ablet Metformin 04/02/2020 12:57:59 PM EDT 1500 MG active [facility] 24 HR Metformin hydrochloride 750 MG Extended Release Oral T ablet Metformin 04/02/2020 12:57:59 PM EDT 1500 MG completed [facility] 24 HR Metformin hydrochloride 750 MG Extended Release Oral T ablet Metformin 04/02/2020 12:57:59 PM EDT 1500 MG active [facility] 25 mcg 04/02/2020 12:00:00 AM EDT tablet [...] 03/07/2020 10:46:43 AM EDT [address] [facility] Fluconazole 150 MG Oral Tablet Fluconazole 03/07/2020 10:46:43 AM EDT 150 MG completed [facility] Fluconazole 150 MG Oral Tablet Fluconazole (Diflucan) 150 mg tablet Fluconazole (Diflucan) 150 mg tablet 03/07/2020 10:46:43 AM EDT [address] [facility] Fluconazole 150 MG Oral Tablet Fluconazole (Diflucan) 150 mg tablet Fluconazole (Diflucan) 150 mg tablet 03/07/2020 10:46:43 AM EDT 150 MG completed [facility] Fluconazole 150 MG Oral Tablet Fluconazole 03/07/2020 10:46:43 AM EDT 150 MG completed [facility] Metronidazole 500 MG Oral Tablet Metronidazole 03/07/2020 10:46:08 AM EDT 500 MG completed [facility] Metronidazole 500 MG Oral Tablet Metronidazole (Flagyl ) 500 mg tablet Metronidazole (Flagyl) 500 mg tablet 03/07/2020 10:46:08 AM EDT 500 MG completed [facility] Metronidazole 500 MG Oral Tablet Metronidazole (Flagyl ) 500 mg tablet Metronidazole (Flagyl) 500 mg tablet 03/07/2020 10:46:08 AM EDT 500 MG completed [facility] Metronidazole 500 MG Oral Tablet Metronidazole (Flagyl ) 500 mg tablet Metronidazole (Flagyl) 500 mg tablet 03/07/2020 10:46:08 AM EDT 500 MG completed [facility] Metronidazole 500 MG Oral Tablet Metronidazole 03/07/2020 10:46:08 AM EDT 500 MG completed [facility] doxycycline hyclate 100 MG Oral Capsule Doxycycline Hyclate Doxycycline Hyclate 03/07/2020 10:45:22 AM EDT 100 MG completed [facility] doxycycline hyclate 100 MG Oral Capsule Doxycycline Hyclate Doxycycline Hyclate 03/07/2020 10:45:22 AM EDT 100 MG completed [facility] doxycycline hyclate 100 MG Oral Capsule Doxycycline Hyclate Doxycycline Hyclate 03/07/2020 10:45:22 AM EDT 100 MG completed [facility] doxycycline hyclate 100 MG Oral Capsule Doxycycline Hyclate Doxycycline Hyclate 03/07/2020 10:45:22 AM EDT 100 MG completed [facility] doxycycline hyclate 100 MG Oral Capsule Doxycycline Hyclate Doxycycline Hyclate 03/07/2020 10:45:22 AM EDT 100 MG [facility] 500 mg 03/07/2020 12:00:00 AM [...] IF NEEDED SOLD: 03/07/2020 [facility] Levonorgestrel 0.902741 MG/HR Drug Implant Levonorgestrel 02/01/2020 11:57:05 AM EDT 20 MCG active [facility] Levonorgestrel 0.042758 MG/HR Drug Impla nt Levonorgestrel (Mirena) 20 mcg/24 hours (5 yrs) 52 mg intrauterine device Levonorgestrel (Mirena) 20 mcg/24 hours (5 yrs) 52 mg intrauterine device 02/01/2020 11:57:05 AM EDT 20 MCG active [facility] Levonorgestrel 0.453187 MG/HR Drug Impla nt Levonorgestrel (Mirena) 20 mcg/24 hours (5 yrs) 52 mg intrauterine device Levonorgestrel (Mirena) 20 mcg/24 hours (5 yrs) 52 mg intrauterine device 02/01/2020 11:57:05 AM EDT 20 MCG active [facility] Levonorgestrel 0.055354 MG/HR Drug Implant Levonorgestrel 02/01/2020 11:57:05 AM EDT 20 MCG active [facility] Levonorgestrel 0.698389 MG/HR Drug Implant Levonorgestrel 02/01/2020 11:57:05 AM EDT completed [facility] Levonorgestrel 0.889720 MG/HR Drug Impla nt Levonorgestrel (Mirena) 20 mcg/24 hours (5 yrs) 52 mg intrauterine device Levonorgestrel (Mirena) 20 mcg/24 hours (5 yrs) 52 mg intrauterine device 02/01/2020 11:57:05 AM EDT 20 MCG completed [facility] meloxicam 15 MG Oral Tablet Meloxicam Meloxicam 02/01/2020 11:54 :25 AM EDT 15 MG active [facility] meloxicam 15 MG Oral Tablet Meloxicam (Mobic) 15 mg ta blet Meloxicam (Mobic) 15 mg tablet 02/01/2020 11:54:25 AM EDT 15 MG completed [facility] meloxicam 15 MG Oral Tablet Meloxicam Meloxicam 02/01/2020 11:54 :25 AM EDT 15 MG active [facility] meloxicam 15 MG Oral Tablet Meloxicam (Mobic) 15 mg ta blet Meloxicam (Mobic) 15 mg tablet 02/01/2020 11:54:25 AM EDT 15 MG completed [facility] meloxicam 15 MG Oral Tablet Meloxicam Meloxicam 02/01/2020 11:54 :25 AM EDT 15 MG active [facility] meloxicam 15 MG Oral Tablet Meloxicam (Mobic) 15 mg ta blet Meloxicam (Mobic) 15 mg tablet 02/01/2020 11:54:25 AM EDT 15 MG completed [facility] Fluconazole 150 MG Oral Tablet Fluconazole (Diflucan) 150 mg tablet Fluconazole (Diflucan) 150 mg tablet 02/01/2020 11:53:42 AM EDT [address] [facility] Fluconazole 150 MG Oral Tablet Fluconazole 02/01/2020 11:53:42 AM EDT 150 MG completed [facility] Fluconazole 150 MG Oral Tablet Fluconazole 02/01/2020 11:53:42 AM EDT 150 MG completed [facility] Fluconazole 150 MG Oral Tablet Fluconazole 02/01/2020 11:53:42 AM EDT 150 MG completed [facility] Fluconazole 150 MG Oral Tablet Fluconazole (Diflucan) 150 mg tablet Fluconazole (Diflucan) 150 mg tablet 02/01/2020 11:53:42 AM EDT [address] [facility] Fluconazole 150 MG Oral Tablet Fluconazole (Diflucan) 150 mg tablet Fluconazole (Diflucan) 150 mg tablet 02/01/2020 11:53:42 AM EDT [address] [facility] doxycycline hyclate 100 MG Oral Tablet Doxycycline Hyclate D oxycycline Hyclate 02/01/2020 11:53:14 AM EDT 100 MG completed [facility] doxycycline hyclate 100 MG Oral Tablet Doxycycline Hyclate D oxycycline Hyclate 02/01/2020 11:53:14 AM EDT 100 MG completed [facility] doxycycline hyclate 100 MG Oral Tablet Doxycycline Hyclate D oxycycline Hyclate 02/01/2020 11:53:14 AM EDT 100 MG completed [facility] doxycycline hyclate 100 MG Oral Tablet Doxycycline Hyclate D oxycycline Hyclate 02/01/2020 11:53:14 AM EDT 100 MG completed [facility] doxycycline hyclate 100 MG Oral Tablet Doxycycline Hyclate D oxycycline Hyclate 02/01/2020 11:53:14 AM EDT 100 MG completed [facility] doxycycline hyclate 100 MG Oral Tablet Doxycycline Hyclate D oxycycline Hyclate 02/01/2020 11:53:14 AM EDT 100 MG completed [facility] 15 mg 02/01/2020 12:00:00 AM EDT tablet [...] 01/24/2020 09:27:00 AM EDT [address] [facility] Fluconazole 150 MG Oral Tablet Fluconazole (Diflucan) 150 mg tablet Fluconazole (Diflucan) 150 mg tablet 01/24/2020 09:27:00 AM EDT [address] [facility] Fluconazole 150 MG Oral Tablet Fluconazole 01/24/2020 09:27:00 AM EDT 150 MG completed [facility] Fluconazole 150 MG Oral Tablet Fluconazole 01/24/2020 09:27:00 AM EDT 150 MG active [facility] Fluconazole 150 MG Oral Tablet Fluconazole 01/24/2020 09:27:00 AM EDT 150 MG completed [facility] Fluconazole 150 MG Oral Tablet Fluconazole (Diflucan) 150 mg tablet Fluconazole (Diflucan) 150 mg tablet 01/24/2020 09:27:00 AM EDT 150 MG completed [facility] Flu[facility] 150 MG Oral Tablet Fluconazole 01/24/2020 09:27:00 AM EDT 150 MG completed [facility] Fluconazole 150 MG Oral Tablet Fluconazole 01/24/2020 09:27:00 AM EDT 150 MG active [facility] [facility] Ciprofloxacin 500 MG Oral Tablet Ciprofloxacin Hcl Ciproflox acin Hcl 01/24/2020 09:24:50 AM EDT 500 MG completed [facility] Ciprofloxacin 500 MG Oral Tablet Ciprofloxacin Hcl (Ci pro) 500 mg tablet Ciprofloxacin Hcl (Cipro) 500 mg tablet 01/24/2020 09:24:50 AM EDT 50 0 MG completed [facility] Ciprofloxacin 500 MG Oral Tablet Ciprofloxacin Hcl Ciproflox acin Hcl 01/24/2020 09:24:50 AM EDT 500 MG [facility] Ciprofloxacin 500 MG Oral Tablet Ciprofloxacin Hcl Ciproflox acin Hcl 01/24/2020 09:24:50 AM EDT 500 MG active [facility] Ciprofloxacin 500 MG Oral Tablet Ciprofloxacin Hcl Ciproflox acin Hcl 01/24/2020 09:24:50 AM EDT 500 MG [facility] Ciprofloxacin 500 MG Oral Tablet Ciprofloxacin Hcl (Ci pro) 500 mg tablet Ciprofloxacin Hcl (Cipro) 500 mg tablet 01/24/2020 09:24:50 AM EDT 50 0 MG completed [facility] Ciprofloxacin 500 MG Oral Tablet Ciprofloxacin Hcl (Ci pro) 500 mg tablet Ciprofloxacin Hcl (Cipro) 500 mg tablet 01/24/2020 09:24:50 AM EDT 50 0 MG completed [facility] Ciprofloxacin 500 MG Oral Tablet Ciprofloxacin Hcl Ciproflox acin Hcl 01/24/2020 09:24:50 AM EDT 500 MG active [facility] 500 mg 01/24/2020 12:00:00 AM EDT [...] Multivitamin 01/22/2020 02:45:17 PM EDT 1 TAB [facility] Multivitamin 01/22/2020 02:45:17 PM EDT 1 TAB [facility] Multivitamin 01/22/2020 02:45:17 PM EDT 1 TAB comp [facility] Multivitamin 01/22/2020 02:45:17 PM EDT 1 TAB [facility] Multivitamin 01/22/2020 02:45:17 PM EDT 1 TAB comp [facility] Multivitamin 01/22/2020 02:45:17 PM EDT 1 TAB comp [facility] Multivitamin 01/22/2020 02:45:17 PM EDT 1 TAB [facility] Multivitamin 01/22/2020 02:45:17 PM EDT 1 TAB [facility] Multivitamin 01/22/2020 02:45:17 PM EDT 1 TAB [facility] 5 mg 01/20/2020 12:00:00 AM EST tablet [...] active Amoxicil gurinder 500 MG Oral Capsule [place] [facility]) Fluconazole 150 MG Oral Tablet [Diflucan] Diflucan 150 MG Oral Tablet Diflucan 150 MG Oral Tablet 12/29/2019 12:00:00 AM EST active Fluconazole 150 MG Oral Tablet [Diflucan] [facility]) Fluconazole 150 MG Oral Tablet Fluconazole 11/05/2019 11:00:50 AM EST 150 MG completed [facility] Fluconazole 150 MG Oral Tablet Fluconazole 11/05/2019 11:00:50 AM EST 150 MG completed [facility] Fluconazole 150 MG Oral Tablet Fluconazole 11/05/2019 11:00:50 AM EST 150 MG completed [facility] Fluconazole 150 MG Oral Tablet Fluconazole 11/05/2019 11:00:50 AM EST 150 MG completed [facility] Fluconazole 150 MG Oral Tablet Fluconazole 11/05/2019 11:00:50 AM EST 150 MG completed [facility] Fluconazole 150 MG Oral Tablet Fluconazole 11/05/2019 11:00:50 AM EST 150 MG completed [facility] Fluconazole 150 MG Oral Tablet Fluconazole 11/05/2019 11:00:50 AM EST 150 MG completed [facility] Fluconazole 150 MG Oral Tablet Fluconazole 11/05/2019 11:00:50 AM EST 150 MG completed [facility] Fluconazole 150 MG Oral Tablet Fluconazole 11/05/2019 11:00:50 AM EST 150 MG completed [facility] 150 mg 11/05/2019 12:00:00 AM EST tablet 1 TAKE 1 TABLET BY MOUTH FOR SINGLE DOSE TAKE 1 TABLET BY MOUTH FOR SINGLE DOSE SOLD: 11/05/2019 [facility] Amoxicillin 875 MG / Clavulanate 125 MG Oral Tablet Am oxicillin-Pot Clavulanate Amoxicillin-Pot Clavulanate 11/01/2019 12:33:30 PM EST 1 TAB [facility] Amoxicillin 875 MG / Clavulanate 125 MG Oral Tablet Am oxicillin-Pot Clavulanate Amoxicillin-Pot Clavulanate 11/01/2019 12:33:30 PM EST 1 TAB [facility] Amoxicillin 875 MG / Clavulanate 125 MG Oral Tablet Am oxicillin-Pot Clavulanate Amoxicillin-Pot Clavulanate 11/01/2019 12:33:30 PM EST 1 TAB [facility] Amoxicillin 875 MG / Clavulanate 125 MG Oral Tablet Am oxicillin-Pot Clavulanate Amoxicillin-Pot Clavulanate 11/01/2019 12:33:30 PM EST 1 TAB [facility] Amoxicillin 875 MG / Clavulanate 125 MG Oral Tablet Amoxicillin-Pot Clavulanate (Augmentin) 875-125 mg tablet Amoxicillin-Pot Clavulanate (Augmentin) 875-125 mg tablet 11/01/2019 12:33:30 PM EST 1 TAB [facility] Amoxicillin 875 MG / Clavulanate 125 MG Oral Tablet Amoxicillin-Pot Clavulanate (Augmentin) 875-125 mg tablet Amoxicillin-Pot Clavulanate (Augmentin) 875-125 mg tablet 11/01/2019 12:33:30 PM EST 1 TAB completed [facility] Amoxicillin 875 MG / Clavulanate 125 MG Oral Tablet Am oxicillin-Pot Clavulanate Amoxicillin-Pot Clavulanate 11/01/2019 12:33:30 PM EST 1 TAB completed [facility] Amoxicillin 875 MG / Clavulanate 125 MG Oral Tablet Amoxicillin-Pot Clavulanate (Augmentin) 875-125 mg tablet Amoxicillin-Pot Clavulanate (Augmentin) 875-125 mg tablet 11/01/2019 12:33:30 PM EST 1 TAB completed [facility] Amoxicillin 875 MG / Clavulanate 125 MG Oral Tablet Am oxicillin-Pot Clavulanate Amoxicillin-Pot Clavulanate 11/01/2019 12:33:30 PM EST 1 TAB completed [facility] Metronidazole 500 MG Oral Tablet Metronidazole 11/01/2019 12:33:17 PM EST 500 MG [facility] Metronidazole 500 MG Oral Tablet Metronidazole 11/01/2019 12:33:17 PM EST 500 MG completed [facility] Metronidazole 500 MG Oral Tablet Metronidazole 11/01/2019 12:33:17 PM EST 500 MG [facility] Metronidazole 500 MG Oral Tablet Metronidazole 11/01/2019 12:33:17 PM EST 500 MG [facility] Metronidazole 500 MG Oral Tablet Metronidazole 11/01/2019 12:33:17 PM EST 500 MG [facility] Metronidazole 500 MG Oral Tablet Metronidazole 11/01/2019 12:33:17 PM EST 500 MG [facility] Metronidazole 500 MG Oral Tablet Metronidazole 11/01/2019 12:33:17 PM EST 500 MG [facility] Metronidazole 500 MG Oral Tablet Metronidazole 11/01/2019 12:33:17 PM EST 500 MG [facility] Metronidazole 500 MG Oral Tablet Metronidazole 11/01/2019 12:33:17 PM EST 500 MG [facility] 875-125 mg 11/01/2019 12:00:00 AM EST tablet 14 TAKE ONE TABLET BY MOUTH TWICE A DAY TAKE ONE TABLET BY MOUTH TWICE A DAY SOLD: 11/01/2019 [facility] 500 mg 11/01/2019 12:00:00 AM EST tablet 14 TAKE ONE TABLET BY MOUTH TWICE A DAY FOR 7 DAYS TAKE ONE TABLET BY MOUTH TWICE A DAY FOR 7 DAYS SOLD: 11/01/2019 [facility] Cyclobenzaprine hydrochloride 5 MG Oral Tablet Cyclobenzaprine HCl 5 MG Oral Tablet (FLEXERIL) Cyclobenzaprine HCl 5 MG Oral Tablet (FLEXERIL) 2018 12:00:00 AM EST 5 mg Oral active Take 1 tablet by mouth nightly as needed for Muscle spasms [facility] Amoxicillin 500 MG Oral Capsule Amoxicillin 500MG Oral Capsule Amoxicillin 500MG Oral Capsule 09/25/2019 12:00:00 AM EST 1 abor lorraine Amoxicillin 500 MG Oral Capsule [place] ([facility]) Fluconazole 150 MG Oral Tablet [Diflucan] Diflucan 150 MG Oral Tablet Diflucan 150MG Oral Tablet 09/25/2019 12:00:00 AM EST aborted Fluconazole 150 MG Oral Tablet [Diflucan] [place] ([facility]) Levothyroxine Sodium 0.025 MG Oral Tablet Levothyroxine 09/06/2019 04:02:49 PM EDT 25 MCG completed [facility] Levothyroxine Sodium 0.025 MG Oral Tablet Levothyroxine 09/06/2019 04:02:49 PM EDT 25 MCG completed [facility] Levothyroxine Sodium 0.025 MG Oral Tablet Levothyroxine 09/06/2019 04:02:49 PM EDT 25 MCG completed [facility] Levothyroxine Sodium 0.025 MG Oral Table t Levothyroxine (Synthroid) 25 mcg tablet Levothyroxine (Synthroid) 25 mcg tablet 09/06/2019 04:02:49 PM E DT 25 MCG completed [facility] Levothyroxine Sodium 0.025 MG Oral Tablet Levothyroxine 09/06/2019 04:02:49 PM EDT 25 MCG completed [facility] Levothyroxine Sodium 0.025 MG Oral Tablet Levothyroxine 09/06/2019 04:02:49 PM EDT 25 MCG completed [facility] Levothyroxine Sodium 0.025 MG Oral Table t Levothyroxine (Synthroid) 25 mcg tablet Levothyroxine (Synthroid) 25 mcg tablet 09/06/2019 04:02:49 PM E DT 25 MCG completed [facility] Levothyroxine Sodium 0.025 MG Oral Table t Levothyroxine (Synthroid) 25 mcg tablet Levothyroxine (Synthroid) 25 mcg tablet 09/06/2019 04:02:49 PM E DT 25 MCG completed [facility] Levothyroxine Sodium 0.025 MG Oral Tablet Levothyroxine 09/06/2019 04:02:49 PM EDT 25 MCG completed [facility] Levonorgestrel 0.475607 MG/HR Drug Implant Levonorgestrel 09/06/2019 02:53:14 PM EDT completed [facility] Levonorgestrel 0.173023 MG/HR Drug Implant Levonorgestrel 09/06/2019 02:53:14 PM EDT completed [facility] Levonorgestrel 0.705447 MG/HR Drug Impla nt Levonorgestrel (Mirena) 20 mcg/24 hours (5 yrs) 52 mg intrauterine device Levonorgestrel (Mirena) 20 mcg/24 hours (5 yrs) 52 mg intrauterine device 09/06/2019 02:53:14 PM EDT completed [facility] Levonorgestrel 0.985317 MG/HR Drug Impla nt Levonorgestrel (Mirena) 20 mcg/24 hours (5 yrs) 52 mg intrauterine device Levonorgestrel (Mirena) 20 mcg/24 hours (5 yrs) 52 mg intrauterine device 09/06/2019 02:53:14 PM EDT completed [facility] Levonorgestrel 0.331489 MG/HR Drug Impla nt Levonorgestrel (Mirena) 20 mcg/24 hours (5 yrs) 52 mg intrauterine device Levonorgestrel (Mirena) 20 mcg/24 hours (5 yrs) 52 mg intrauterine device 09/06/2019 02:53:14 PM EDT completed [facility] Levonorgestrel 0.389919 MG/HR Drug Implant Levonorgestrel 09/06/2019 02:53:14 PM EDT completed [facility] 25 mcg 09/06/2019 12:00:00 AM EDT tablet 30 TAKE ONE TABLET BY MOUTH EVERY DAY TAKE ONE TABLET BY MOUTH EVERY DAY SOLD: 11/05/2019 [facility] Levothyroxine Sodium 0.025 MG Oral Table t levothyroxine (SYNTHROID, LEVOTHROID) 25 MCG tablet levothyroxine (SYNTHROID, LEVOTHROID) 25 MCG tablet 25 ug Oral aborted Take 25 mcg by mouth daily [facility] Levonorgestrel 0.009907 MG/HR Drug Impla nt levonorgestrel (MIRENA, 52 MG,) 20 MCG/24HR IUD levonorgestrel (MIRENA, 52 MG,) 20 MCG/24HR IUD 1 {each} Intrauterine aborted 1 each by Intraut erine route once [facility] Insurance Providers Payer name Policy type / Coverage type Policy ID Covered democrat ID Covered democrat's relationship to redman Policy Redman Plan Information [facility] [id number] SP [id number] [facility] [id number] SP [id number] [facility] MEDICAID [id number] [facility] MEDICAID [id number] Kaela [id number] [facility](MCA[facility]) O [id number] S [id number] [facility] I [id number] Self [id number] [place] PPO [id number] [employer] Other 0 Self 0 [employer] Other 0 Self 0 [facility] U [id number] Self [id number] [employer] Other 0 Self 0 [employer] Other 0 Self 0 MEDICAID M [id number] Self [id number] EXCELLUS C [id number] Spouse [id number] BCBS [place] O [id number] U 57 MEDICAID [id number] S [id number] BLUE CHOICE OPTION O [id number] S [id number] BLUE CROSS BLUE SHIELD-PHYSICIAN [id number] 01 [id number] BLUE CROSS BLUE SHIELD-O/P [id number] 01 [id number] BLUE CROSS BLUE SHIELD-CLINIC [id number] Problems, Conditions, and Diagnoses Code Display Name Description Problem Type Effective Dates Data Source(s) R39.82 [id number] Chronic bladder pain Problem 12:00:00 AM EST eC1 ([facility]) Q21.1 Patent foramen ovale with atrial septal aneurysm Patent foramen ovale with atrial septal aneurysm [id number] 11/15/2020 12:00:00 AM [facility] D73.5 Splenic infarct Splenic infarct [id number] 11/12/2020 12:0 0:00 AM [facility] 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 [id number] 11/12/2020 12:00:00 AM [facility] M32.9 SLE (systemic lupus erythematosus) SLE (systemic lupus erythematosus) [id number] 11/12/2020 12:00:00 AM [facility] E28.2 PCOS (polycystic ovarian syndrome) PCOS (polycys tic ovarian syndrome) [id number] 11/12/2020 12:00:00 AM [facility] Q21.1 Ostium secundum type atrial septal defec t Ostium secundum type atrial septal defect [id number] 10/24/2020 12:00:00 AM [facility] K76.9 Chronic nonalcoholic liver disease Chronic nonal coholic liver disease [id number] 10/24/2020 12:00:00 AM [facility] E66.9 Obesity Obesity [id number] 10/24/2020 12:00:00 AM [facility] [id number] Ostium secundum type atrial septal defec t Ostium secundum type atrial septal defect Problem 10/24/2020 12:00:00 AM EST [facility] ([facility] [id number] Obesity Obesity Problem 10/24/2020 12:00:00 AM ES T [facility] ([facility]) [id number] Dietary management surveillance Dietary manageme nt surveillance Problem 10/24/2020 12:00:00 AM EST [facility] ([facility] [id number] Chronic nonalcoholic liver disease Chronic nonal coholic liver disease Problem 10/24/2020 12:00:00 AM EST [facility] ([facility] M32.9 [id number] Systemic lupus eryth ematosus, unspecified SLE type, unspecified organ involvement status Problem 10/01/2020 12:00:00 AM EST eCW1 ([facility]) E28.2 [id number] PCOS (polycystic ovarian syndrome) Proble m 08/15/2020 12:00:00 AM EDT eCW1 ([facility]) K76.9 Liver disease, unspecified Liver disease, unspecified Diagnosis 11/12/2020 03:27:42 PM EST [facility] E66.9 Obesity, unspecified Obesity, unspecified Diagnosis 11/12/2020 03:27:42 PM EST [facility] M32.9 Systemic lupus erythematosus, unspecifie d Systemic lupus erythematosus, unspecifie Diagnosis 11/12/2020 03:27:42 PM EST [facility] E28.2 Polycystic ovarian syndrome Polycystic ovarian syndrom e Diagnosis 11/12/2020 03:27:42 PM EST [facility] D73.5 Infarction of spleen Infarction of spleen Diagnosis 11/12/2020 03:27:42 PM EST [facility] E06.3 Autoimmune thyroiditis Autoimmune thyroiditis Diagnosi s 11/12/2020 03:27:42 PM EST [facility] E03.8 Other specified hypothyroidism Other specified hypothy roidism Diagnosis 11/12/2020 03:27:42 PM EST [facility] Q21.1 Atrial septal defect Atrial septal defect Diagnosis 11/12/2020 03:27:42 PM EST [facility] K76.0 Fatty (change of) liver, not elsewhere c lassified Fatty (change of) liver, not elsewhere c Diagnosis 11/12/2020 03:27:42 PM EST [facility] Surgeries/Procedures Procedure Description Date Indications Data Source(s) ECG ROUTINE ECG W/LEAST 12 LDS W/I&R POCT AMB EKG Routine 11/12/2020 4:00 PM EST Patent foramen ovale with atrial septal aneurysm 11/12/2020 09:00:00 PM EST Patent foramen ovale with atrial septal aneurysm [facility] Patent foramen ovale with atrial septal aneurysm ECG ROUTINE ECG W/LEAST 12 LDS W/I&R 10/24/2020 12:00: 00 AM EST [facility] ([facility]) Single contrast barium enema (procedure) 05/30/2020 12 :41:00 PM EDT [facility] Single contrast barium enema (procedure) 05/30/2020 12 :41:00 PM EDT [facility] Pelvic echography (procedure) 04/23/2020 12:30:00 PM E [facility] Pelvic echography (procedure) 04/23/2020 12:30:00 PM E [facility] Pelvic echography (procedure) 04/23/2020 12:30:00 PM E [facility] Computed tomography of abdomen and pelvis with contrast (pro cedure) 03/19/2020 05:01:00 PM EDF [facility] Computed tomography of abdomen and pelvis with contrast (pro cedure) 03/19/2020 05:01:00 PM EDT [facility] Computed tomography of abdomen and pelvis with contrast (pro cedure) 03/19/2020 05:01:00 PM EDF [facility] Computed tomography of abdomen and pelvis with contrast (pro cedure) 03/19/2020 05:01:00 PM EDF [facility] Computed tomography of abdomen and pelvis with contrast (pro cedure) 03/19/2020 05:01:00 PM [facility] Bacterial culture (procedure) 02/01/2020 12:00:00 AM E [facility] Bacteria identification test (procedure) 02/01/2020 12 :00:00 AM [facility] Bacterial culture (procedure) 02/01/2020 12:00:00 AM E [facility] Bacteria identification test (procedure) 02/01/2020 12 :00:00 AM [facility] Bacterial culture (procedure) 02/01/2020 12:00:00 AM E [facility] Bacteria identification test (procedure) 02/01/2020 12 :00:00 AM [facility] Bacterial culture (procedure) 02/01/2020 12:00:00 AM E [facility] Bacteria identification test (procedure) 02/01/2020 12 :00:00 AM EDT [facility] Bacterial culture (procedure) 02/01/2020 12:00:00 AM E [facility] Bacteria identification test (procedure) [facility]/01/2020 12:00:00 AM E [facility] Bacteria identification test (procedure) 02/01/2020 12 :00:00 AM EDT [facility] Pelvic echography (procedure) 01/22/2020 06:42:00 PM E [facility] Pelvic echography (procedure) 01/22/2020 06:42:00 PM E [facility] Pelvic echography (procedure) 01/22/2020 06:42:00 PM E [facility] Pelvic echography (procedure) 01/22/2020 06:42:00 PM E [facility] Pelvic echography (procedure) 01/22/2020 06:42:00 PM E [facility] Pelvic echography (procedure) 01/22/2020 06:42:00 PM E [facility] Pelvic echography (procedure) 01/22/2020 06:42:00 PM E [facility] Pelvic echography (procedure) 01/22/2020 06:42:00 PM E [facility] Urine culture (procedure) [facility]2020 [facility] 01/22/2020 12:00:00 AM [facility] Urine culture (procedure) 01/22/2020 [facility]22[facility]2020 [facility] 01/22/2020 [facility] 01/22/2020 12:00:00 AM [facility] Urine culture (procedure) 01/22/2020 12:00:00 AM [facility] Urine culture (procedure) 01/22/2020 12:00:00 AM [facility] Pelvic echography (procedure) 11/05/2019 01:48:00 PM E [facility] Pelvic echography (procedure) 11/05/2019 01:48:00 PM E [facility] Pelvic echography (procedure) 11/05/2019 01:48:00 PM E [facility] Pelvic echography (procedure) 11/05/2019 01:48:00 PM E [facility] Pelvic echography (procedure) 11/05/2019 01:48:00 PM E [facility] Pelvic echography (procedure) 11/05/2019 01:48:00 PM E [facility] Pelvic echography (procedure) 11/05/2019 01:48:00 PM E [facility] Pelvic echography (procedure) 11/05/2019 01:48:00 PM E [facility] Results ID Date Data Source [id number] 11/25/2020 09:52:00 AM [facility] BRSEE NOTERESULT: [id number] variant not detectedSEE NOTEINTERPRETATION: This individual is negative (normal) for [id number] variant in the Prothrombin/Factor II gene. Increasedrisk of thrombophilia can be caused by a variety of geneticand non-genetic factors not screened for by this assay.Laboratory testing supervised and results monitored byJuana Panchal, Ph.D., [facility], [facility].The [id number] mutation [WA987370.1: g.86411C>A (c.*97G>A)] inthe Prothrombin/Factor II gene is the second most commoninherited risk factor for thrombosis occurring inapproximately 2% of Caucasians. Presence of the mutation isassociated with an elevation of prothrombin levels to about30% above normal in heterozygotes and to 70% above normal inhomozygotes.Prothrombin (L23716G) mutations are detected byamplification of their selected [...] your local [facility]' genetic counselor or call [phone]) for assistance with interpretation of theseresults.This test was developed and its analytical performancecharacteristics have been determined by [facility]. It has not beencleared or approved by FDA. This assay has been validatedpursuant to the CLIA regulations and is used for clinicalpurposes.THIS TEST WAS PERFORMED AT:[employer]/[place] [id number] [facility] [place] [id number] AYON MD,PHD,[facility]I [facility] Name Value Range Interpretation Code Description Data Jodie rce(s) Supporting Document(s) Leukocytes [#/volume] in Blood by Automated count 8.0 10*3/uL 4.45-10 .71 N [facility] Erythrocytes [#/volume] in Blood by Automated count 4.41 10*6/uL 4.20 -5.40 N [facility] Hemoglobin [Moles/volume] in Blood 13.3 g/dL 10.7-15.4 N [facility] Hematocrit [Volume Fraction] of Blood by Automated count 41.6 % 3 7-47 N [facility] Erythrocyte mean corpuscular volume [Ent itic volume] in Cord blood by Automated count 94.3 fL 80-96 N [facility] Erythrocyte mean corpuscular hemoglobin [Entitic mass] by Automated count 30.2 pg 27-[address] [facility] Erythrocyte mean corpuscular hemoglobin concentration [Mass/volume] in Cord blood 32.0 g/dL 33-37 Below low normal [facility] Erythrocyte distribution width [Entitic volume] by Automated count 12 % 11-15 N [facility] Platelets [#/volume] in Blood by Automated count 305 10*3/uL 130-472 N [facility] Platelet mean volume [Entitic volume] in Blood 10.4 fL 9.1-13.1 N [facility] Neutrophils/100 leukocytes in Blood by Automated count 54.5 % 41- 77 N [facility] Neutrophils [#/volume] in Blood by Automated count 4.4 U 1.7-7.6 N [facility] Lymphocytes/100 leukocytes in Blood by Automated count 32.4 % 14- 46 N [facility] Lymphocytes [#/volume] in Blood by Automated count 2.6 U 0.6-4.6 N [facility] Monocytes/100 leukocytes in Blood by Automated count 6.7 % 4-12 N [facility] Monocytes [#/volume] in Blood by Automated count 0.5 U 0.2-1.2 N [facility] Eosinophils/100 leukocytes in Blood by Automated count 5.7 % 0-7 N [facility] Eosinophils [#/volume] in Blood by Automated count 0.5 U 0.0-0.5 N [facility] Basophils/100 leukocytes in Blood by Automated count 0.5 % 0.4-1 .3 N [facility] Basophils [#/volume] in Blood by Automated count 0.0 U 0.0-0.2 N [facility] NUCLEATED RED BLOOD CELL 0 % [facility] NUCLEATED RED BLOOD CELL# 0 U [facility] Immature granulocytes [Presence] in Blood by Automated count 0-2 N [facility] Immature granulocytes [#/volume] in Blood by Automated count 0.0 U 0-0.1 N [facility] Manual Differential panel - Blood NO [facility] [facility] ID Date Data Source [id number] 11/25/2020 10:37:00 AM EST [facility] BRSEE NOTERESULT: [id number] variant not detectedSEE NOTEINTERPRETATION: This individual is negative (normal) for [id number] variant in the Prothrombin/Factor II gene. Increasedrisk of thrombophilia can be caused by a variety of geneticand non-genetic factors not screened for by this assay.Laboratory testing supervised and results monitored Daniela Panchal, Ph.D., [facility], [facility].The I15943G mutation [JI082725.1: g.73692S>A (c.*97G>A)] inthe Prothrombin/Factor II gene is the second most commoninherited risk factor for thrombosis occurring inapproximately 2% of Caucasians. Presence of the mutation isassociated with an elevation of prothrombin levels to about30% above normal in heterozygotes and to 70% above normal inhomozygotes.Prothrombin (D45037D) mutations are detected byamplification of their selected gene regions by polymerasechain reaction (PCR) and fluorescent probe hybridization tothe targeted region, followed by melting curve analysis witha real time PCR system. Although rare, false positive orfalse negative results may occur. All results should beinterpreted in context of clinical findings, relevanthistory, and other laboratory data.Health care providers, please contact your local [employer] genetic counselor or call [phone]) for assistance with interpretation of theseresults.This test was developed and its analytical performancecharacteristics have been determined by [facility] [place]. It has not beencleared or approved by FDA. This assay has been validatedpursuant to the CLIA regulations and is used for clinicalpurposes.THIS TEST WAS PERFORMED AT:[employer]onex [id number] [facility] [place] [address]EEBFRJASON AYON MD,PHD,ONI [facility] Name Value Range Interpretation Code Description Data Jodie rce(s) Supporting Document(s) C reactive protein [Mass/volume] in Serum or Plasma 3.8 mg/L 0.0-5. 0 N [facility] ID Date Data Source [id number] 11/29/2020 04:27:00 [facility]: [id number] variant not detectedSEE NOTEINTERPRETATION: This individual is negative (normal) for [id number] variant in the Prothrombin/Factor II gene. Increasedrisk of thrombophilia can be caused by a variety of geneticand non-genetic factors not screened for by this assay.Laboratory testing supervised and results monitored Daniela Panchal, Ph.D., [facility], [facility].The Q55384J mutation [NU717975.1: g.47939R>A (c.*97G>A)] inthe Prothrombin/Factor II gene is the second most commoninherited risk factor for thrombosis occurring inapproximately 2% of Caucasians. Presence of the mutation isassociated with an elevation of prothrombin levels to about30% above normal in heterozygotes and to 70% above normal inhomozygotes.Prothrombin (M49031P) mutations are detected byamplification of their selected gene regions by polymerasechain reaction (PCR) and fluorescent probe hybridization tothe targeted region, followed by melting curve analysis witha real time PCR system. Although rare, false positive orfalse negative results may occur. All results should beinterpreted in context of clinical findings, relevanthistory, and other laboratory data.Health care providers, please contact your local [employer] genetic counselor or call [phone] for assistance with interpretation of theseresults.This test was developed and its analytical performancecharacteristics have been determined by [facility]. It has not beencleared or approved by FDA. This assay has been validatedpursuant to the CLIA regulations and is used for clinicalpurposes.THIS TEST WAS PERFORMED AT:[employer]/Neuronex [id number] [place] [address]HVPHWJASON AYON MD,PHD,ONI [facility] Name Value Range Interpretation Code Description Data Jodie rce(s) Supporting Document(s) Cardiolipin IgG Ab in Serum 17 GPL Above high normal [facility] Value Interpretation ----- < or = 14 Negative 15 - 20 Indeterminate 21 - 80 Low to Medium Positive >80 High Positive Cardiolipin IgA Ab in Serum <11 [facility] Value Interpretation ----- < or = 11 Negative 12 - 20 Indeterminate 21 - 80 Low to Medium Positive >80 High Positive Cardiolipin IgM Ab in Serum 13 MPL Above high normal [facility] Value Interpretation ----- < or = 12 Negative 13 - 20 Indeterminate 21 - 80 Low to Medium Positive > 80 High PositiveThe antiphospholipid antibody syndrome (APS) is aclinical-pathologic correlation that includes aclinical event (e.g. thrombosis, loss,thrombocytopenia) and persistent positiveantiphospholipid antibodies(IgM or IgG AWILDA >40 MPL/GPL, IgM or IgG anti-c0IZCizkoadorog or a lupus anticoagulant). Internationalconsensus guidelines for APS suggest waiting at least12 weeks before retesting to confirm antibodypersistence. The [facility] Lupus [facility] immunological classificationcriteria for systemic lupus erythematosus (SLE)include testing for isotype IgA, which has yet to beincorporated into APS criteria. Low levelantiphospholipid antibodies may sometimes be detectedin the setting of infection, drug therapy or aging.THIS TEST WAS PERFORMED AT:[employer] [address]KJIAYL MERATI,MD ID Date Data Source [id number] 11/25/2020 10:37:00 AM [facility] BRSEE NOTERESULT: [id number] variant not detectedSEE NOTEINTERPRETATION: This individual is negative (normal) for [id number] variant in the Prothrombin/Factor II gene. Increasedrisk of thrombophilia can be caused by a variety of geneticand non-genetic factors not screened for by this assay.Laboratory testing supervised and results monitored byJuana Panchal, Ph.D., [facility], [facility].The X59522Z mutation [DM753972.1: g.38624F>A (c.*97G>A)] inthe Prothrombin/Factor II gene is the second most commoninherited risk factor for thrombosis occurring inapproximately 2% of Caucasians. Presence of the mutation isassociated with an elevation of prothrombin levels to about30% above normal in heterozygotes and to 70% above normal inhomozygotes.Prothrombin (F69776U) mutations are detected byamplification of their selected gene regions by polymerasechain reaction (PCR) and fluorescent probe hybridization tothe targeted region, followed by melting curve analysis witha real time PCR system. Although rare, false positive orfalse negative results may occur. All results should beinterpreted in context of clinical findings, relevanthistory, and other laboratory data.Health care providers, please contact your local [employer] genetic counselor or call [phone] for assistance with interpretation of theseresults.This test was developed and its analytical performancecharacteristics have been determined by [facility] [place]. It has not beencleared or approved by FDA. This assay has been validatedpursuant to the CLIA regulations and is used for clinicalpurposes.THIS TEST WAS PERFORMED AT:[employer]x [id number] [place] [address]LTMZKJASON AYON MD,PHD,ONI [facility] Name Value Range Interpretation Code Description Data Jodie rce(s) Supporting Document(s) Thyrotropin [Units/volume] in Serum or Plasma by Detec tion limit <= 0.005 mIU/L 2.34 u[iU]/mL 0.35-5.50 N [facility] al ID Date Data Source [id number] 11/29/2020 04:27:00 PM [facility]: [id number] variant not detectedSEE NOTEINTERPRETATION: This individual is negative (normal) for [id number] variant in the Prothrombin/Factor II gene. Increasedrisk of thrombophilia can be caused by a variety of geneticand non-genetic factors not screened for by this assay.Laboratory testing supervised and results monitored byJuana Panchal, Ph.D., [facility], [facility].The K96309Y mutation [SW254586.1: g.29126G>A (c.*97G>A)] inthe Prothrombin/Factor II gene is the second most commoninherited risk factor for thrombosis occurring inapproximately 2% of Caucasians. Presence of the mutation isassociated with an elevation of prothrombin levels to about30% above normal in heterozygotes and to 70% above normal inhomozygotes.Prothrombin (K48972V) mutations are detected byamplification of their selected gene regions by polymerasechain reaction (PCR) and fluorescent probe hybridization tothe targeted region, followed by melting curve analysis witha real time PCR system. Although rare, false positive orfalse negative results may occur. All results should beinterpreted in context of clinical findings, relevanthistory, and other laboratory data.Health care providers, please contact your local [employer] genetic counselor or call [phone] for assistance with interpretation of theseresults.This test was developed and its analytical performancecharacteristics have been determined by [facility]. It has not beencleared or approved by FDA. This assay has been validatedpursuant to the CLIA regulations and is used for clinicalpurposes.THIS TEST WAS PERFORMED AT:[employer]x [id number] [place] [address]WCMBTJASON AYON MD,PHD,ONI [facility] Name Value Range Interpretation Code Description Data Jodie rce(s) Supporting Document(s) Protein S [Units/volume] in Platelet poor plasma by Co agulation assay 84 % normal 70-140 [facility] Protein S actual/normal in Platelet poor plasma by Coa gulation assay 97 % normal 50-147 [facility] l THIS TEST WAS PERFORMED AT:[employer] [facility]/Neuronex [id number] [place] [address] MD,PHD ID Date Data Source [id number] 11/29/2020 04:27:[address] [facility]: [id number] variant not detectedSEE NOTEINTERPRETATION: This individual is negative (normal) for [id number] variant in the Prothrombin/Factor II gene. Increasedrisk of thrombophilia can be caused by a variety of geneticand non-genetic factors not screened for by this assay.Laboratory testing supervised and results monitored Daniela Panchal, Ph.D., [facility], [facility].The A51504P mutation [YM937991.1: g.74063A>A (c.*97G>A)] inthe Prothrombin/Factor II gene is the second most commoninherited risk factor for thrombosis occurring inapproximately 2% of Caucasians. Presence of the mutation isassociated with an elevation of prothrombin levels to about30% above normal in heterozygotes and to 70% above normal inhomozygotes.Prothrombin (Y92162C) mutations are detected byamplification of their selected gene regions by polymerasechain reaction (PCR) and fluorescent probe hybridization tothe targeted region, followed by melting curve analysis witha real time PCR system. Although rare, false positive orfalse negative results may occur. All results should beinterpreted in context of clinical findings, relevanthistory, and other laboratory data.Health care providers, please contact your local [employer] genetic counselor or call [phone] for assistance with interpretation of theseresults.This test was developed and its analytical performancecharacteristics have been determined by [facility]. It has not beencleared or approved by FDA. 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 F5 gene mutations found [Identifier] in Blood or Tissue by Molecular genetics method [facility] INTERPRETATION: This individual is negat jadyn (normal) for theFactor V Leiden (R506Q) variant in the Factor V gene.Increased risk of thrombophilia can be caused by a varietyof genetic and non-genetic factors not screened for by thisassay.Laboratory testing supervised and results monitored by MD Drea, PhD, [facility].MUTATION ANALYSIS:The Factor V Leiden (R506Q) mutation [NM 929947.2: c.1601G>A(p.R534Q)] in the Factor V gene is [...] its analytical performancecharacteristics have been determined by [facility] [place]. It has not beencleared or approved by FDA. This assay has been validatedpursuant to the CLIA regulations and is used for clinicalpurposes.Health care providers, please contact your local [employer] genetic counselor or call [phone]) for assistance with interpretation of theseresults.THIS TEST WAS PERFORMED AT:[employer]/Neuronex [id number] [facility] [place] [address]JASON AYON MD,PHD,ONI ID Date Data Source [id number] 11/29/2020 04:27:00 PM [facility] NOTERESULT: [id number] variant not detectedSEE NOTEINTERPRETATION: This individual is negative (normal) for tjiV84940H variant in the Prothrombin/Factor II gene. Increasedrisk of thrombophilia can be caused by a variety of geneticand non-genetic factors not screened for by this assay.Laboratory testing supervised and results monitored byJuana Panchal, Ph.D., [facility], [facility].The J14332R mutation [BP071295.1: g.35846F>A (c.*97G>A)] inthe Prothrombin/Factor II gene is the second most commoninherited risk factor for thrombosis occurring inapproximately 2% of Caucasians. Presence of the mutation isassociated with an elevation of prothrombin levels to about30% above normal in heterozygotes and to 70% above normal inhomozygotes.Prothrombin (B68601G) mutations are detected byamplification of their selected [...] your local [employer]' genetic counselor or call [phone]) for assistance with interpretation of theseresults.This test was developed and its analytical performancecharacteristics have been determined by [facility] [place]. It has not beencleared or approved by FDA. This assay has been validatedpursuant to the CLIA regulations and is used for clinicalpurposes.THIS TEST WAS PERFORMED AT:[employer]x [id number] [facility] [place] [place] [address]GGPYYJASON AYON MD,PHD,ONI [facility] Name Value Range Interpretation Code Description Data Jodie rce(s) Supporting Document(s) ID Date Data Source [id number] 11/29/2020 04:27:00 PM [facility]: [id number] variant not detectedSEE NOTEINTERPRETATION: This individual is negative (normal) for zebH53620E variant in the Prothrombin/Factor II gene. Increasedrisk of thrombophilia can be caused by a variety of geneticand non-genetic factors not screened for by this assay.Laboratory testing supervised and results monitored byJuana Panchal, Ph.D., [facility].The Z90000V mutation [SD092254.1: g.54667E>A (c.*97G>A)] inthe Prothrombin/Factor II gene is the second most commoninherited risk factor for thrombosis occurring inapproximately 2% of Caucasians. Presence of the mutation isassociated with an elevation of prothrombin levels to about30% above normal in heterozygotes and to 70% above normal inhomozygotes.Prothrombin (J01966T) mutations are detected byamplification of their selected gene regions by polymerasechain reaction (PCR) and fluorescent probe hybridization tothe targeted region, followed by melting curve analysis witha real time PCR system. Although rare, false positive orfalse negative results may occur. All results should beinterpreted in context of clinical findings, relevanthistory, and other laboratory data.Health care providers, please contact your local [employer] genetic counselor or call [phone] for assistance with interpretation of theseresults.This test was developed and its analytical performancecharacteristics have been determined by [facility]. It has not beencleared or approved by FDA. This assay has been validatedpursuant to the CLIA regulations and is used for clinicalpurposes.THIS TEST WAS PERFORMED AT:[employer]/Neuronex [id number] [place] [address]MKVIWJAOSN AYON MD,PHD,ONI [facility] Name Value Range Interpretation Code Description Data Jodie rce(s) Supporting Document(s) Protein C Ag in Platelet poor plasma 108 % 70-140 [facility] Units: % of normalTHIS TEST WAS PERFORME D AT:[employer]/Neuronex [id number] [place] [address] MD,PHD ID Date Data Source [id number] 11/29/2020 04:27:00 PM EST [facility] BRSEE NOTERESULT: [id number] variant not detectedSEE NOTEINTERPRETATION: This individual is negative (normal) for mfhN67738K variant in the Prothrombin/Factor II gene. Increasedrisk of thrombophilia can be caused by a variety of geneticand non-genetic factors not screened for by this assay.Laboratory testing supervised and results monitored byJuana Panchal, Ph.D., [facility], [facility].The B12448Y mutation [EN493041.1: g.81088R>A (c.*97G>A)] inthe Prothrombin/Factor II gene is the second most commoninherited risk factor for thrombosis occurring inapproximately 2% of Caucasians. Presence of the mutation isassociated with an elevation of prothrombin levels to about30% above normal in heterozygotes and to 70% above normal inhomozygotes.Prothrombin (K39843G) mutations are detected byamplification of their selected gene regions by polymerasechain reaction (PCR) and fluorescent probe hybridization tothe targeted region, followed by melting curve analysis witha real time PCR system. Although rare, false positive orfalse negative results may occur. All results should beinterpreted in context of clinical findings, relevanthistory, and other laboratory data.Health care providers, please contact your local [employer] genetic counselor or call [phone] for assistance with interpretation of theseresults.This test was developed and its analytical performancecharacteristics have been determined by [facility]. It has not beencleared or approved by FDA. This assay has been validatedpursuant to the CLIA regulations and is used for clinicalpurposes.THIS TEST WAS PERFORMED AT:[employer]/Neuronex [id number] [place] [address]MRTYMJASON AYON MD,PHD,ONI [facility] Name Value Range Interpretation Code Description Data Jodie rce(s) Supporting Document(s) Anti-Thrombin III Activity 91 % normal 80-135 L [facility] THIS TEST WAS PERFORMED AT:[employer]/Neuronex [id number] [place] [address] MD,PHD ID Date Data Source [id number] 11/29/2020 04:27:[address] [facility] BRSEE NOTERESULT: [id number] variant not detectedSEE NOTEINTERPRETATION: This individual is negative (normal) for ylaN14137A variant in the Prothrombin/Factor II gene. Increasedrisk of thrombophilia can be caused by a variety of geneticand non-genetic factors not screened for by this assay.Laboratory testing supervised and results monitored byJuana Panchal, Ph.D., [facility], [facility].The U16319S mutation [EM610461.1: g.64077K>A (c.*97G>A)] inthe Prothrombin/Factor II gene is the second most commoninherited risk factor for thrombosis occurring inapproximately 2% of Caucasians. Presence of the mutation isassociated with an elevation of prothrombin levels to about30% above normal in heterozygotes and to 70% above normal inhomozygotes.Prothrombin (C68923L) mutations are detected byamplification of their selected gene regions by polymerasechain reaction (PCR) and fluorescent probe hybridization tothe targeted region, followed by melting curve analysis witha real time PCR system. Although rare, false positive orfalse negative results may occur. All results should beinterpreted in context of clinical findings, relevanthistory, and other laboratory data.Health care providers, please contact your local [employer] genetic counselor or call [phone] for assistance with interpretation of theseresults.This test was developed and its analytical performancecharacteristics have been determined by [facility]. It has not beencleared or approved by FDA. This assay has been validatedpursuant to the CLIA regulations and is used for clinicalpurposes.THIS TEST WAS PERFORMED AT:[employer]/ZAHRA [id number] [place] [address]OKVGIJASON AYON MD,PHD,ONI [facility] Name Value Range Interpretation Code Description Data Jodie rce(s) Supporting Document(s) Fibrinogen [Mass/volume] in Platelet poor plasma by Coagulat ion assay 290 mg/dL 175-425 [facility] THIS TEST WAS PERFORMED AT:[employer] [facility]/ZAHRA [id number] [place] [address] MD,PHD ID Date Data Source [id number] 11/19/2020 08:21:00 AM [facility] Patient Name: ERYN NAVARRO LM : 1990 Sex: F Pt Unit #: [id number] Location:[facility] Provider: Visit Date/Time: 11/19/20 [facility] Secondary Insurance: Self Pay Intake Vital Signs [...] female presents today s/p hospital discharge from [facility] 09/22/20-09/26/20. Patients discharge diagnosis Splenic Infarct, Patent Foramen Ovale/Interatrial Septal Aneurysm. Rheumatology consult done and holding off on restarting Plaquenil until sees Pulmonology. Patient saw Cardiology and she is to be monitoring BP at home. Patient notes that she checks Bi-weekly 130'sover low 80's per patient. Patient notes Parliamentary Counsel wants her to be referred for possible removal of diseased portion of her spleen. Patient needs referral to Pulmonology. 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 Please see documentation. (2) Splenic infarct: Status: Acute Comment: admitted [place] 09/22/20,D/C 09/26/20 Code(s): D73.5 - Infarction of spleen SNOMED Code(s): 24619343 Category: Medical Plan - Eryn Martinez NP: [...] other diseases of urinary system SNOMED Code(s): 269196620 Category: Medical Plan - Eryn Martinez NP: Patient reports that she has a history of interstitial cystitis. 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 Will check urine today and will treat if infection is present. Will refer to urology for further evaluation. Orders: Referrals: Urology Referral (4) ISRAEL positive: Status: Acute SNOMED Code(s): 500669598 Category: Medical Plan - Eryn Martinez NP: Encouraged patient to continue scheduled follow-up with rheumatology. Discussed with her that condition can affect different organs of the body in different ways. (5) Rosendo's thyroiditis: Status: Acute Code(s): E06.3 - Autoimmune thyroiditis SNOMED Code(s): 80889077 Category: Medical Plan - Eryn Martinez NP: [...] not intractable, without status migrainosus SNOMED Code(s): 7698810 Category: Medical Plan - Eryn Martinez NP: [...] - Systemic lupus erythematosus, unspecified SNOMED Code(s): 94364081 Category: Medical Qualifiers: Systemic lupus erythematosus organ involvement: unspecified Systemic lupus erythematosus type: unspecified Qualified Code(s): M32.9 - Systemic lupus erythematosus, unspecified Orders: Orders: Protein C Antigen 11/19/20 AT3 Anti-Thrombin III Activity 11/19/20 Protein S Antigen, Tot/Free 11/19/20 Referrals: Hematology/Oncology Referral (8) PFO (patent foramen ovale): Status: Acute Code(s): Q21.1 - Atrial septal defect SNOMED Code(s): 917049190 Category: Medical Plan - Eryn Martinez CELERY CUTTER: Will refer to pulmonology as suggested by discharge instructions. Also encouraged patient to continue scheduled follow-ups with cardiology. Orders: Referrals: Pulmonary Referral (9) Dysuria: Status: Acute Code(s): R30.0 - Dysuria SNOMED Code(s): 64978824 Category: Medical Plan - Eryn Martinez CELERY CUTTER: Urine in the office is indicative of [...] [place] [address] New Pt Extended Comp Patient Type New [...] Dysuria R30.0 <Electronically signed by Eryn Martinez CELERY CUTTER> 11/23/20 1401 Name Value Range Interpretation Code Description Data Jodie rce(s) Supporting Document(s) ID Date Data Source [id number] 10/08/2020 03:34:20 PM [facility] Name Value Range Interpretation Code Description Data Jodie rce(s) Supporting Document(s) Progress Note [facility] THVQWx9mQjSHMhHn13/YFVlfKTQwg4JaHSkeUAx9RAzdZOSeL0CcCNQ8fX3yBRG0QYaKYbCiVyUdWJE4 [facility] ZrLyqYLjXjERWaZgmBLlOqNWshOznbdQAdCG7BrFV3HFAfC48wQHJoEUEiB9VcTNEwYLB+Bc2ABPLxcW AnOJ9AWqzR3V4oc2fIVu8+gM3GDQ15s1HMPxb6ManGRLUqNAR2H/UaEFtbgmjXdqDqnhJPnn75YMT1GF Y7TTo7wHzaReFypnkk4HipxvumMdH/v5aMGTdtp5x/ 4i9In4lKCaIy/6Lqx4y+moses+uj6RCfYt0rBfF/mfxv/yhR+P1N5zT+YijzVZmDECTRNzSjExhW0Xsin0 [file] Y98clX+FJvnS4DO5hd4Ej27D2nya/Mónica+w4E3j/UwUFh3hsdxgyBJU4zMH7EW/8Dv/03pl4XFN4km0Eb [file] AgICAgICAgICAgICAgICAgICAgICAgICAgICAgICAg MGOpDSOkFMGvSEQrSCGrCSNlVEVoXLTaRVBkYIDyKSUqEGBaTQIcPYSdTWAoPS4BBFDkYQUnQZEvAIOz ICAgICAgICAgICAgICAgICAgICAgICAgICAgICAgICAgICAgICAgICAgICAgICAgICAgICAgICAgICAg GGIaWYYyBVPuUNQxIZZxIIPeMZPxCHScGNXwXB1TIS AgICAgICAgICAgICAgICAgICAgICAgICAgICAgICAgICAgICAgICAgICAgICAgICAgICAgICAgICAgIC EeBDRaFQMnMQExJZSaSYAoEDGkLDNyWWPkSVBrEHRuKYElCGZqJO2UIMNcIYOrJCGwPVUsMTHaRJBoAR AgICAgICAgICAgICAgICAgICAgICAgICAgICAgICAg CDHfDBTkOQJgYERjJOJuIBPeXQZbCYAhERNpJDGzQMWoVTBfAYYnYOPqEFAxSNJyVW2YVAWwTMIoDFEx ICAgICAgICAgICAgICAgICAgICAgICAgICAgICAgICAgICAgICAgICAgICAgICAgICAgICAgICAgICAg ICAgICAgICAgICAgICAgICAgICAgICAgICAgICAgIA 0KICAgICAgICAgICAgICAgICAgICAgICAgICAgICAgICAgICAgICAgICAgICAgICAgICAgICAgICAgIC MlXUBjJLKwDGOsAOLeGNAyPTWqAZGvPBUaSHGqDVJaYHNvTRFhWOTqUE6LDEXiTCGxSSJfKVSuKZKtSY AgICAgICAgICAgICAgICAgICAgICAgICAgICAgICAg DGOrWTTnRNMnACJwIADmMCSfIJWlCEDaLNUqYWGsJJOqIIJrPFFuCRUcTOZwFVIzCVHtQB0SNLQgZZYs ICAgICAgICAgICAgICAgICAgICAgICAgICAgICAgICAgICAgICAgICAgICAgICAgICAgICAgICAgICAg ICAgICAgICAgICAgICAgICAgICAgICAgICAgICAgIC HsOX0KDZBtFYMrXVOfNTYvMPSmEKJtNRCjXYUyWTFlZUBaHPXwBBYuPAMbNDGhSKRcKOOtJQWaRGHvAP DtFSZlIWDpWILlZBTrHNQxDIByTFVpSUUyEKDyJZXzEYYrHVEaDVWjDTNyKM2LEVQqGJUmYSYaZRDyGW AgICAgICAgICAgICAgICAgICAgICAgICAgICAgICAg EZGeEPHzOFFkGJTlAWPuRUNlSNTqRSGzYNPxGMWdQPCeNFAaSTBdPXPaQFJgAOTxLMGxNAAgQN5SFM48 gCYau0T2ZKNvIS4mrbd/Zi5LYBpmhpTqnNAqQA0FIsMuZI8ubw3JWwLaPC7nbo4VJUoYLdFlY7F1eAEy UTUvVMSCCtRbO85qUHscGz66XFcnHCCyAnSdZJt2Yg 6VAkOvW2bwCZWaMsL3IXClSlG5UCXaGtZ5QWOmByAzMLPvRCAvNNDkVOADHA0EHlZrT6RtiT91ZVRHBj 4+GTzvayOdUqgUOuYoAPClv0IpZVg2HN3QSYHyAuacm9OiVmSoXYQSIWnmPC5BMFF5HWOwVNMdKw8LKE TyN812wkPfMZ0PXg1INiIyEQ5yiq8AAnZdICDaHuoB Ttn8VCqvDK3FgSZaIXbMem0nfjOzgfDDm2BolvYgbLLBaXUqK1dqmhiqPGPgYH2THMH2CUAnVwD7EvQz NyFuSEG0KUPvGV5dFPfaUE1PKAM8AAzgWFHnTDLuT0uATrElOTTyHeMooShsJY9ZSzUfL3WvljNevUQv MCAwIFINCj4+CBkvbwLrXhwKJtXbPDKxm6NqLKj7CE 2HVHLzGLrvQB2ZQOWgfX2lKRrjWO5NBpYtDURaMDUMPsZsE23ltOXdIPa0C0NkNrHkUMCpGwikRUPjCB wvTmFtZXMgWyBdDQogID4+ID4+XMhvTF4IPOmqcyEgBSEfWr9HDBSxHHQwDM2wFHCpEDPjD6Z4dNyoSC IKKpNmL3vpaaxrPR8aYBWwK554eXcpqqYsAHFdKIHp Sr6AOUVfGHP9MFQozCTxKqqzPIRCIMqfKB1McWRcTTK4mE0zAGwbPBTrAWXwD6aWOpZawDjxXF69qPcl bnVsbCBdDQo+Pk8BTW7hr4OmCDo5bgKkGBwaICQmYAsoAVTuRSIzKGHhTWZ0QBB3MSKTCzRgVRDiFWZi PGqhCWWbICXtdg0FBTUkDGAzNMOgBSMhRBLgRFFrAL cwAEAuSIV7XTX0YUKyIHPzBV0VQdZdONBvBYFoLXeuWXHdPHPiqy0WDDViHXUnKPI7UROiTZUcDMGsYK qsNJYwSUP4Eqw2QQAgUDYsQR5DFgDiILDvVBy2GWRfDOThIPLgdr2OBHZmLDAsKQW0XmUoSUEaYFScBE cbNOFnQHZjFDA8SAQsWMLvJY0YPaDbHGLdGSFaSTSd MUYpISFewl4ZLILcPWXrBRK6HdYcQHKaOLNyYOkbDBFfQGG8AgqmDDQjKTPpUR3MCmZcMBSwRTw6WyRj RFDeDCRvzt7VIOIoFBPfBEXeFIDrJSLzEOZmSZxvAFQfAEJ9XRy6AMKwKWWeYK4FYtAtSBRrSNtcROKf TZNaJWEzxq5WCLFqQXPbUQH3IACzYKDdBJHcSLtoWE LvABKxLxX9PCXqWXRfEK4LXqSqNDMlDpG4FpbmHQNuILCshs1FBFRiMWQuKPweLuNyXWJnQSUyPUzjYG CeGUQmGGN4DZWkNIEpNP9PVaAhAZLkYcE8CHFkEVDaEMDdfz8CJLHkCEVaGmA5JGYaMZOlDFKlBFvjKN KkZIZuMPBeXAYtTHRsEI5HFvHzIJYqHxCuURwmCUVa PGWpjn0WGDYdSPPqJOFrCTCdHXChOHZkCGovOWLsAMP7FcLsLNGiIDQlPH7YOwZyVKOiXuHtSUmpZVOx GEZmcx7UETMgABBaBQdbGtHqBJUgJPXuJOguTLXxIOR2RvtcOAClUOChEY2MDvEyKFAqMuEmQJYaKTMk UURmfi9KVJDbPIGbVzM1HIRfZUHfVVEcYBz5jvEpwX VeUCi6IZ9RJ7SffdOdYaWRMh1Kn114STJjNQMjMx9QI0hnBu3eLPTrDBWTQo6DWVg1QVU9LGDyWTX7WI dbReBfHZEcHQNpFnFlTZa8EsJaTqK+SHufYXlhWxEeXwx9MMW1NWCkSYYbHLC4JPC0RwhmRHXvUF7lUF ANCj4+JIxyyPIfmHelBJZWAmS5EzVxPWabTXPEHw7O ID Date Data Source [id number] 10/07/2020 10:03:57 AM EST [facility] Name Value Range Interpretation Code Description Data Jodie rce(s) Supporting Document(s) Progress Note [facility] ISFTZg9cBhIISpQt27/JMYuqVYHfi3PrSAhbOUh4ODpkSLCxS3VkLIS3uS7pKZT6KTuKVpLlGdEbKJI0 lbm [file] AgICAgICAgICAgICAgICAgICAgICAgICAgICAgICAg DYIlANNjCGZeNLEtDLTsIQLtZEZgJLZlFSEeEQVgYLAuWZLtAURyYVUuBQOkOLQaFIYsGRMrCW2TUQNe ICAgICAgICAgICAgICAgICAgICAgICAgICAgICAgICAgICAgICAgICAgICAgICAgICAgICAgICAgICAg ICAgICAgICAgICAgICAgICAgICAgICAgICAgICAgIC KnADIuTV7SVQDdKRBbCUZdYRBvCBZxZRIpKLZlNYNxXTXkQNTtFGRnOMCtCDQeSISdLEGxIJUrTUMwOL VxHWBcKQMoUZMtYBMjLVBtZZVjOQUlAMPyMUNtWCYiPVKvGDGiPQCxGQCpWBInIV1JDUPgTLUqFIMzRW AgICAgICAgICAgICAgICAgICAgICAgICAgICAgICAg MWQhGDUaPWUnGNVaTSYiSSAfKKBhLHNwCUGdLOBnIRMiZPZqPSHwHFRiOIGuVXBiSMGzNMJkKFCrQJ6P ICAgICAgICAgICAgICAgICAgICAgICAgICAgICAgICAgICAgICAgICAgICAgICAgICAgICAgICAgICAg ICAgICAgICAgICAgICAgICAgICAgICAgICAgICAgIC WsGGCyCXIhLJ0XLPFrFZHgAQOwNIZpRZImRJQeUBVyCUBtLLLjOGRdGSCqCSIqJDUyCOMzBZQcXOEwIE GeCLOsSZKwMZIaPCJhCZTcKTKoJAChTQMeGLGkHIWcMUKiSVEqFIEbUZRlXYKyYGRqKL4DLMUdXFNqVF AgICAgICAgICAgICAgICAgICAgICAgICAgICAgICAg ICAgICAgICAgICAgICAgICAgICAgICAgICAgICAgICAgICAgICAgICAgICAgICAgICAgICAgICAgICAg UE1BRFHuRYJdISCjJUKqZIQwHZZeSOLbFUHtHHNoWYNwXBEaLARgGONlAYRfRJHwZTFzQGKqPEBaLQUn ICAgICAgICAgICAgICAgICAgICAgICAgICAgICAgIC XePDDjWONaRAZeRQ6ULIDrHYQuDMJfLYGgQPUnKJWqQWRtTLNxVHRgZCAqNPVeQVHdDZCjLIKhDSJlPK BvONSrNQFoQRWcPFWsLCHfFFTsRTCaLKYsJBAdZFIzFGBbVAAnJIVcYXQlXHPrIDGmWYKhCO3VBX42gG Nim7J8XVZiWI9fbfw/Nk7IYBzxsvKpnEWuNN7AFvQx IU5exq2BVkQjFC8qhv4WVUdDDyPbK0X1oTUsDUOjFEKOBvUoO49rCAczJa78YSguVVFcRpLnZXh0Wc1C MgZkH8qoRNXzSsC1LHNlVwTbAYevCX2Lt3WrhRPyQIv+Dq9RJA3tr3CbWEiaVVRpEX8xcw3WMSpITfPy A2IhhoB1FWIySGHzMl6XHYQjRAFzdMLiBCAmJCOWRo OwL2KprW25SFUFDv6+TXjvwcCsCcuFQuOaWVYlb5XwASh5PS7VMHKlQTb0mGFxAMNjD7Zou1BhQn68QP WuEzopNbyetgcmo02lAYg3EKIAYFGlwFUfWH7cFK2wDCCbJKNtTwFqNIGADE8GNGLtBXUlgEKkGOFzHJ AYUH6PYFizWUF9EIVnbtIqlESpDAheDJ4FPTLwovPk MTkgMCBSDQo+Rl0PCG3qt3JxBLftJWLsUT9xgp0ZKLzJXpPdJ7O7bNPnP5R0IZkwXx3NSCPxRNFlSJag NTPUQBslXV9TJZ0skbO0XU0LlUQdABNbGNAtvRXtJOr4D88rhCFnYYvsKK1GUIX+Manuel+Iw1PTEHqWOLv JBKqMxEdZJNRTlNsD6VoT2NGs5EjL3HsHM13oAmgnk PyQDegYW4UUD1jMOMzQXNTYR6QyJMaxU0cptHjJHJmWFNPMqWaR66puEGtWWVfGXA1TSWcUu2OIBReR0 WnbmEivLtvxwZwQONmSTBTCY6HVUcopnVutSHngXbpFE98jFnkTS7TXo8VRgUlZP8dwf1FcJToKm3SDX RoOw4TVARjRFIuOVKoIXH9GPLwMfTkNSqqUSQqXEYk CSH2IIOeGPZoGE0YNbVtQOZsJZQ7ViJoOAGfCLEfrw2WZPAtWTPtUEG9OYTcZIUaXSEfHNcoNOYdHPCt RAI1RNEcMNFvQA2BOmJgOJObCHF7ADbjNQNgUDNikv3JTSYuAGMwWRacTEFtFXSlCAKhFCyyUZNdTBLo CfOeOSGlBZBlTQ7QBgCpPCJvWNM8LGSjBVZeNAHxfw 1IDOBzUMLgNrOuXxMiVSFiQQIoWPjqINWhFGO5MPr4OZVqDVAaGU3KIfQlXLEpDQCtVIJpALFbHOMwna 4IWVBnIHUmGUG8IuBcTFDhQBEwLVjlSAGwLJT3BBI3GOGsQBBjIA7GFbFtBXYtXMFfGJDcPZVyLZQsgg 7TQUQjIFOwAxO6XzCrDMEaMKWmUPqgQHJkHNS1VjZa QLWzQWCxZW4SAzEqAQIeIBG4SMnaJOXuGVRgkv2EREJfRUEwXuU8DSEgNNAyMMMgQGhpHGUwPGA0TAs0 JCPuEQZhYT9JUaPaJRYbDOc8UImwQUWaULSszz6FGRUyJJXpYBhdEaSzWQUhNHAvXLt7qiNjvIGzBEm7 YU3SY9MikoEjMzZGTt7Gw301BXVdEWIhSe8NS1loXx 1sVFAyRMPGJn0SCHt4OaAdRtw4McktVtx8BSWyKxXjUBQiVvD8PuC9LCJeYTQ+IDxmZTMyNzhiOGNjNz QaIHG9OzQyPHMyEuciKUvhWhW7Jj6hCYFRGq5+CPbvcSDmdVluICCGYmO9VYBiNQpoBTTIPp6Y ID Date Data Source [id number] 10/03/2020 08:47:[address] [facility] Name Value Range Interpretation Code Description Data Jodie rce(s) Supporting Document(s) Progress Note [facility] SEKBRu1ySnEYGgBt11/UNWrrQXSlc9XhEVugABi5YVdoYFSmQ6ZlSYV1bM5dXYZ6OGiDWxIlNmHeHKCn lbm [file] AgICAgICAgICAgICAgICAgICAgICAgICAgICAgICAg ICAgICAgICAgICAgICAgICAgICAgICAgICAgICAgICAgICAgICANCiAgICAgICAgICAgICAgICAgICAg ICAgICAgICAgICAgICAgICAgICAgICAgICAgICAgICAgICAgICAgICAgICAgICAgICAgICAgICAgICAg ICAgICAgICAgICAgICAgICAgICANCiAgICAgICAgIC AgICAgICAgICAgICAgICAgICAgICAgICAgICAgICAgICAgICAgICAgICAgICAgICAgICAgICAgICAgIC AgICAgICAgICAgICAgICAgICAgICAgICAgICAgICANCiAgICAgICAgICAgICAgICAgICAgICAgICAgIC AgICAgICAgICAgICAgICAgICAgICAgICAgICAgICAg ICAgICAgICAgICAgICAgICAgICAgICAgICAgICAgICAgICAgICAgICANCiAgICAgICAgICAgICAgICAg ICAgICAgICAgICAgICAgICAgICAgICAgICAgICAgICAgICAgICAgICAgICAgICAgICAgICAgICAgICAg ICAgICAgICAgICAgICAgICAgICAgICANCiAgICAgIC AgICAgICAgICAgICAgICAgICAgICAgICAgICAgICAgICAgICAgICAgICAgICAgICAgICAgICAgICAgIC AgICAgICAgICAgICAgICAgICAgICAgICAgICAgICAgICANCiAgICAgICAgICAgICAgICAgICAgICAgIC AgICAgICAgICAgICAgICAgICAgICAgICAgICAgICAg ICAgICAgICAgICAgICAgICAgICAgICAgICAgICAgICAgICAgICAgICAgICANCiAgICAgICAgICAgICAg ICAgICAgICAgICAgICAgICAgICAgICAgICAgICAgICAgICAgICAgICAgICAgICAgICAgICAgICAgICAg ICAgICAgICAgICAgICAgICAgICAgICAgICANCiAgIC AgICAgICAgICAgICAgICAgICAgICAgICAgICAgICAgICAgICAgICAgICAgICAgICAgICAgICAgICAgIC AgICAgICAgICAgICAgICAgICAgICAgICAgICAgICAgICAgICANCiAgICAgICAgICAgICAgICAgICAgIC AgICAgICAgICAgICAgICAgICAgICAgICAgICAgICAg ICAgICAgICAgICAgICAgICAgICAgICAgICAgICAgICAgICAgICAgICAgICAgICANCjw/oTEyB9bmxPXx omU3Q4zaFm1RPq6IOC2zb0GnOROcKWvvbuYgNbmGEoVjISUbPgcQSzm7FYrtXI9TvEIaC2LrW8AzYSao JQ5BFWFsBJLxwECkHEYyNHDiSpJ5QCPbQBvhDV4AgK RlKYmsOBRfHFYxJdThJESdRJWuSMVoQWJnRFZNNAAdMOEnBpTyZXrrNB4Nn8SrrOA8RJm+Cn0KHS0ux5 EgVUggGIPyJV7ahq5QNHgCXzSsB9DfggQ4JFNzIUMiCr2TAGEvOLSwyFSnDMSvUQYXPzSzX4QyfZ76OJ ENCj4+CYtqarHhEocSQnMbAKOmo8TpCEu6LN4EWXMw RGo7bVSxIOFoL8Wln8HrSz40HMOvGiggRcybyetnn19qKLl2GXAZQNMyyYUdUH6dYH0pLZNzOECjDqDz OQGPGF7EOJEiJZYooMBcILKdRWXRAE5QFRgcDDN5HOZxelCqvNUjBNeiBZ2BMNLxrhKdWgBlOHDQOFh+ Ua2LRA9bq9JvCUaoTxZyZJ9rkn7HLMrBFdAqL0B5nN PcH3Y5CMvjKd6DWMCnMBPrFtaeMEJZLGpqKU1FRR9ctwY0QZ5GfAYnQXOlJJLrfKBoWXf2Y65tdWFlOF kdXA3UMKO+Manuel+Bp1AHFAbIMJgAYPaCaNyUIRFUmKbK8ZvG8KGm8UcH3VpPT26sWuovdNcABepDW0KBI 4dYCWqDVDVYA5AwXArvY7rzcHkZKHsDWQTDiSjF01l rDVqRYUyJLB6WNAfBq7TECRqY9KyhdMavDntzqDdPIWcYVGDLD5SSDgzmgEdyBIpgPefKZ32sVzdSF4D Fm1HExKcZZ9bjq5GqGMzWr9OAQBoKu6BRRPvXCImACUgWED5OQObMqUrGEtdRUNvMKJcSGS4FLDkHALf YZ7SUzAtCMPuQhObNVGyYNWlWDUgyb3NAABvTUEcGE MzCyOoGMGfHCWoVQftCRTvYSZgYPA4JGUwTLGaYX1WOwPiTMGwCKJ1KzOqKQZuBNXpju4KCRJiBGCkNE hqRGChDYAiZPOtMNlvWNIjCIE9VFRqQKVyJNIpRU6VQuQfNFLrSIpuEPGgAHXcMUXmtt1YJZCcLFQoTS N4JcIzPKBmRBHhXOpyJBPqRLRdZNdiZUBvNKSlCV7U TcJoFHMiFMRcPaBxUZZlLFThae3FVYYbKCGwREQnLMUiBYWtICWxYZbzAYLcGCN4PfSaRKBwVBUiAF9Y TxCaJPHyXYD2QWfcFPEcCAUxov2UNWOmBBQiZpx2WIRbGOAaIWHeHGcfPPRrYHN7THA6THFqFKToHR3H ErTvREXlJJjuNHpuSMRiBDLyjl2BCZGoZRXfGSYgMA FqTHDiRWVuAYopNHGlBAP8FHRaBRSaANRiDL0FRdOuEPWrADv6NLrrNMLvYKVrai1YNQZrZCMnTZEuOV DgLDWfQUMyQNkhUDXcZJCzDaBqUMNhGUXpJX2PEkRkADWnQiU9OdIaZDWvVBKrcg5ITTPhHVLbYBsmSw EbJHQvPNZdQUvjGLNfIBAmVAB1IXKhKHEvMC5NTuEg SLVeErV6PURwXXObXTRwmw5BSJSmZKNlYcL0KfOeARHbYFDsUAqxKOKnLMGgFbfbKQWeJLXnMO7OOjQw GXVnEvG9PBxcMQAzYOYqez7EFHQrQENgKUU1TEGkHEVeZREaOWgdXLOuLJX7MmTaSUHvMLCzRL1RXmNa JEMzWtSiHlCiYVPjIUGqqd0DqHMgqYywty2OVSuWQd 3XbHnqYIOrCPriLq4vuMAlAeYeQZHOAb8IihZqOSDoRNPUPQkeCAOvUGj8QxJuXDAnNiXfEbYjXVSqAK O9F7LiPmSvWdZeALiaPcI7WjAcOlKyQxRfNQVgNRHlCiRzUWZ0PHK1NTKhJyMpGGT+IX4pOUf+Pg0Kc3 VrvxU7rxHkOVydMONhCE2SKNWYO1JYTc== ID Date Data Source [id number] 10/01/2020 08:55:00 AM EST [facility] ([facility]) Name Value Range Interpretation Code Description Data Jodie rce(s) Supporting Document(s) Albumin [Mass/volume] in Serum or Plasma 4.1 [facility] ([facility]) Alanine aminotransferase [Enzymatic activity/volume] in Serum or Pl asma 31 [facility] ([facility]) Calcium [Mass/volume] in Serum or Plasma 9.3 [facility] ([facility]) Carbon dioxide, total [Moles/volume] in Serum or Plasma 30 [facility] ([facility]) Chloride [Moles/volume] in Serum or Plasma 103 [facility] ([facility]) Alkaline phosphatase [Enzymatic activity/volume] in Serum or Plasma 7 9 [facility] ([facility]) Potassium [Moles/volume] in Serum or Plasma 3.7 [facility] ([facility]) Protein [Mass/volume] in Serum or Plasma 7.8 [facility] ([facility]) Sodium 138 [facility] Aspartate aminotransferase [Enzymatic activity/volume] in Serum or Plasma 15 [facility] ([facility]) Urea nitrogen [Mass/volume] in Serum or Plasma 9 [facility] ([facility]) Glucose 105 83-110 [facility] Creatinine For GFR 0.69 [facility] ([facility]) ID Date Data Source [facility] Chest, 2 view (PA\\Lat) 10/01/2020 12:00:00 AM EST eCW1 ( [facility]) Name Value Range Interpretation Code Description Data Jodie rce(s) Supporting Document(s) [facility] Chest, 2 view (PA\\Lat) eCW 1 ([facility]) ID Date Data Source Ser Prot Electro RFX ITS 10/01/2020 12:00:00 AM EST eCW1 ([facility]) Name Value Range Interpretation Code Description Data Jodie rce(s) Supporting Document(s) 59.5 55.8-66.1 ALBUMIN % eCW1 ([facility]) 9.4 7.1-11.8 JHKQJ-2-DMTVJSART % eCW1 ([facility]) 4.7 2.9-4.9 HQYVV-8-WRZWBEVQ % eCW1 ([facility]) 4.7 3.2-6.5 FUFV-4-IDZRXPTZC % eCW1 ([facility]) 6.7 4.7-7.2 YPPU-4-WXDZFOSIY % eCW1 ([facility]) 15.0 11.1-18.8 GAMMA GLOBULIN % eCW1 ([facility]) 0.53 0.28-0.60 XOZA-6-IXJEZGWWT eCW1 ([facility]) 4.70 3.29-5.55 ALBUMIN eCW1 ([facility]) 0.74 0.42-0.99 MHJRJ-3-PQDSZBBBP eCW1 ([facility]) 0.37 0.17-0.41 NPLNY-2-KCBYJDBCO eCW1 ([facility]) 1.19 0.65-1.58 GAMMA GLOBULINS eCW1 ([facility]) SEE COMMENT SPEP INTERPRETATION FOR RFX eCW1 ([facility]) 7.9 6.4-8.2 TOTAL PROTEIN eCW1 ([facility]) 0.37 0.19-0.55 GFPC-0-AKIGPPUZF eCW1 ([facility]) ID Date Data Source RHEUMATOID FACTOR QUANT 10/01/2020 12:00:00 AM EST eCW1 ([facility]) Name Value Range Interpretation Code Description Data Jodie rce(s) Supporting Document(s) < 10.0 <15.0 RHEUMATOID FACTOR QUANT eCW1 ( [facility]) ID Date Data Source IMMUNOGLOBULIN G,A,M 10/01/2020 12:00:00 AM EST eCW1 ([facility]) Name Value Range Interpretation Code Description Data Jodie rce(s) Supporting Document(s) 104.0 40-230 IMMUNOGLOBULIN M eCW1 ([facility]) 140.0 70-400 IMMUNOGLOBULIN A eCW1 ([facility]) [phone] IMMUNOGLOBULIN G eCW1 ([facility]) ID Date Data Source CREATININE,RANDOM URINE 10/01/2020 12:00:00 AM EST eCW1 ([facility]) Name Value Range Interpretation Code Description Data Jodie rce(s) Supporting Document(s) 16.7 CREATININE,RANDOM URINE eCW1 ( [facility]) ID Date Data Source UA URINALYSIS 10/01/2020 12:00:00 AM EST eCW1 ([facility]) Name Value Range Interpretation Code Description Data Jodie rce(s) Supporting Document(s) UA URINALYSIS eCW1 ([facility]) ID Date Data Source TOTAL PROTEIN,RANDOM URINE 10/01/2020 12:00:00 AM EST eCW1 ( [facility]) Name Value Range Interpretation Code Description Data Jodie rce(s) Supporting Document(s) < 5.0 0.0-12.0 TOTAL PROTEIN,RANDOM URIN E eCW1 ([facility]) ID Date Data Source HEPATITIS C ANTIBODY INDEX 10/01/2020 12:00:00 AM EST eCW1 ( [facility]) Name Value Range Interpretation Code Description Data Jodie rce(s) Supporting Document(s) 0.1 <0.8 HEPATITIS C VIRUS RUSTY INDEX eC W1 ([facility]) ID Date Data Source HEPATITIS B SURFACE ANTIGEN 10/01/2020 12:00:00 AM EST eCW1 ([facility]) Name Value Range Interpretation Code Description Data Jodie rce(s) Supporting Document(s) NEGATIVE NEGATIVE HEPATITIS B SURFACE ANTIG EN eCW1 ([facility]) ID Date Data Source C REACTIVE PROTEIN QUANTITATIV (At [facility]) 10/01/2020 12:00 :00 AM EST eCW1 ([facility]) Name Value Range Interpretation Code Description Data Jodie rce(s) Supporting Document(s) 0.82 0.00-0.30 C REACTIVE PROTEIN QUANTI TATIV eCW1 ([facility]) ID Date Data Source Comprehensive Metabolic Profile (CMP) 10/01/2020 12:00:00 AM EST eCW1 ([facility]) Name Value Range Interpretation Code Description Data Jodie rce(s) Supporting Document(s) 105 70-100 GLUCOSE, FASTING eCW1 ([facility]) 138 136-145 SODIUM LEVEL eCW1 ([facility]) > 60.0 >60 GLOMERULAR FILTRATION RATE eCW 1 ([facility]) 9 7-18 BLOOD UREA NITROGEN eCW1 ([facility] 1928–1983) 0.69 0.55-1.30 CREATININE FOR GFR eCW1 ([facility]) 3.7 3.5-5.1 POTASSIUM SERUM eCW1 ([facility]) 30 21-32 CARBON DIOXIDE LEVEL eCW1 ([facility]) 103 98-107 CHLORIDE LEVEL eCW1 ([facility]) 9.3 8.5-10.1 CALCIUM LEVEL eCW1 ([facility]) 0.3 0.2-1.0 BILIRUBIN,TOTAL eCW1 ([facility]) 15 7-37 AST/SGOT eCW1 ([facility]) 79 45-117 ALKALINE PHOSPHATASE eCW1 ([facility]) 31 12-78 ALT/SGPT eCW1 ([facility]) 4.1 3.2-5.2 ALBUMIN eCW1 ([facility]) 7.8 6.4-8.2 TOTAL PROTEIN eCW1 ([facility]) 1.1 1.2-2.2 ALBUMIN/GLOBULIN RATIO eCW1 ([facility]) ID Date Data Source [id number] 09/26/2020 08:53:00 AM EST MEDENT ([facility]) Name Value Range Interpretation Code Description Data Jodie rce(s) Supporting Document(s) White Blood Count 7.7 5.0-10.0 MEDENT ([facility]) Red Blood Count 4.11 4.00-5.40 [facility] ([facility]) Platelets [phone] MED[facility] ([facility] Hemoglobin 12.4 MEDENT ([facility]) Hematocrit 38.3 MEDENT ([facility]) ID Date Data Source ESTRADIOL 08/22/2020 10:17:50 AM EDT eCW1 ([facility]) Name Value Range Interpretation Code Description Data Jodie rce(s) Supporting Document(s) 93.5 eCW1 ([facility]) ID Date Data Source FREE T4 & TSH PANEL 08/22/2020 10:17:41 AM EDT eCW1 ([facility]) Name Value Range Interpretation Code Description Data Jodie rce(s) Supporting Document(s) 0.921 eCW1 ([facility]) 0.90 eCW1 ([facility]) ID Date Data Source FSH & LH EVAL 08/22/2020 10:17:35 AM EDT eCW1 ([facility]) Name Value Range Interpretation Code Description Data Jodie rce(s) Supporting Document(s) 3.5 eCW1 ([facility]) 6.7 eCW1 ([facility]) ID Date Data Source TESTOSTERONE FREE & TOTAL 08/22/2020 10:17:27 AM EDT eCW1 ([facility]) Name Value Range Interpretation Code Description Data Jodie rce(s) Supporting Document(s) 3.1 eCW1 ([facility]) 27.0 eCW1 ([facility]) ID Date Data Source CBC - Complete Blood Count 08/22/2020 10:17:20 AM EDT eCW1 ( [facility]) Name Value Range Interpretation Code Description Data Jodie rce(s) Supporting Document(s) 42.6 eCW1 ([facility]) 4.50 eCW1 ([facility]) 7.9 eCW1 ([facility]) 13.8 eCW1 ([facility]) 11.9 eCW1 ([facility]) 30.7 eCW1 ([facility]) 32.4 eCW1 ([facility]) 94.7 eCW1 ([facility]) 321 eCW1 ([facility]) ID Date Data Source [id number] 08/22/2020 10:16:50 AM EDT eCW1 ([facility]) Name Value Range Interpretation Code Description Data Jodie rce(s) Supporting Document(s) Hemoglobin A1c/Hemoglobin.total in Blood 5.2 eCW1 ([facility]) ID Date Data Source [id number] 07/23/2020 12:00:00 PM EDT [facility] Name Value Range Interpretation Code Description Data Jodie rce(s) Supporting Document(s) SARS coronavirus 2 RNA [facility] This lab was ordered by [facility] and reported by [facility]. ID Date Data Source [id number] 06/18/2020 12:25:00 PM EDT [facility] Patient Name: ERYN NAVARRO : 1990 Sex: F Pt Unit #: [id number] Location:[facility] Provider: Visit Date/Time: 06/18/20 Primary [facility] Secondary Insurance: Self Pay Intake Vital Signs [...] IN PAST YEARS AGO SHE TELLS ME. 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: No working smoke detector in home: [...] Orientation: alert, aw sourav and oriented x3 HENIL Head: normal to inspection and normocephalic Ears: [...] Code(s): N80.9 - Endometriosis, unspecified SNOMED Code(s): 779602762 Category: Medical (3) History of chronic cystitis: Status: Acute Code(s): Z87.448 - Personal history of other diseases of urinary system SNOMED Code(s): 023650218 Category: Medical (4) Pelvic pain: Status: Acute Code(s): R10.2 - Pelvic and perineal pain SNOMED Code(s): 26815947 Category: Medical (5) Educated about management of weight: Status: Acute Comment: has been able to lose on her own;used Phentermine in the past Code(s): Z78.9 - Other specified health status SNOMED Code(s): 048741875 Category: Medical Orders Other Medications: New: phent ermine take 1 tab by mouth daily as directed 37.5 mg PO DAILY 30 tabs 1RF MDD 1 Follow Up: 1 Week (postop) Electronically Signed By: <Electronically signed by Nate Granger II, MD> Date/Time Signed: 06/18/20 1321 Name Value Range Interpretation Code Description Data Jodie rce(s) Supporting Document(s) ID Date Data Source [id number] 05/30/2020 02:35:00 PM EDT [facility] [address] [place] [id number] [phone] NAME SEX PT STATUS ACCOUNT NUMBER ERYN NAVARRO LM F REG REF [id number] ORDERING PHYSICIAN LOCATION MEDICAL RECORD NO. Nate Granger II, MD RAD [id number] ATTENDING PHYSICIAN DATE OF DATE OF EXAM/TIME Zabrina Liu RPA 1990 05/30/20 / 1240 TYPE / EXAM Xray Barium enema-SINGLE CONTR REASON FOR EXAM Lower Abdominal Pain COMPARISON: None FINDINGS: Bench Mechanic radiograph of the abdomen displays an unremarkable [...] Trans Dt/Tm: Trans by: DT Prt Dt/Tm: 1083-7975: Total DLP = 0.00 mGy-cm Fluoroscopy Time (in secs): Name Value Range Interpretation Code Description Data Jodie rce(s) Supporting Document(s) ID Date Data Source [id number] 05/28/2020 11:16:00 AM EDT [facility] Patient Name: ERYN NAVARRO LM : 1990 Sex: F Pt Unit #: [id number] Location:[facility] Provider: Visit Date/Time: 05/28/20 [facility] Secondary Insurance: Self Pay Intake Vital Signs [...] SEE WHY SHE HAS NOT BEEN CALLED. 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 Code(s): N80.9 - Endometriosis, unspecified SNOMED Code(s): 681937145 Category: Medical Plan - Nate Granger II, MD: SANDIE Additional Comments Additional Comments: given the constant nature of her lower abdominal discomfort and change in bowels will request BaEnema. Orders Follow Up: 3 Weeks Electronically Signed By: <Electronically signed by Nate Granger II, MD> Date/Time Signed: 05/28/20 1345 Name Value Range Interpretation Code Description Data Jodie rce(s) Supporting Document(s) ID Date Data Source [id number] 04/23/2020 01:38:00 PM EDT [facility] [address] [place] [address] [phone] NAME SEX PT STATUS ACCOUNT NUMBER ERYN NAVARRO LM F REG REF [id number] ORDERING PHYSICIAN LOCATION MEDICAL RECORD NO. Nate Granger II, MD [id number] ATTENDING PHYSICIAN DATE OF DATE OF EXAM/TIME [...] rce(s) Supporting Document(s) ID Date Data Source [id number] 04/02/2020 12:03:00 PM EDT [facility] Method of Collection:: Clean Catch Name Value Range Interpretation Code Description Data Jodie rce(s) Supporting Document(s) Color of Urine [facility] Appearance of Urine CLEAR [facility] pH of Urine by Test strip 7.5 5-8 [facility] Specific gravity of Urine by Refractometry 1.007 1.005-1.030 [facility] Leukocyte esterase [Presence] in Urine by Test strip NEGAT JADYN [facility] Nitrite [Presence] in Urine by Test strip NEGATIVE [facility] Protein [Presence] in Urine by Test strip NEGATIVE [facility] Glucose [Mass/volume] in Urine by Automated test strip NEGATIVE NEG ATIVE [facility] Ketones [Presence] in Urine by Test strip NEGATIVE [facility] Urobilinogen [Presence] in Urine 0.2-1 EU/dl [facility] Bilirubin.total [Presence] in Urine by Automated test strip NEGATIVE [facility] Erythrocytes [#/volume] in Urine by Test strip NEGATIVE NEGATIVE [facility] URINE MICROSCOPIC? (CIF) NO [facility] ID Date Data Source [id number] 04/02/2020 10:21:00 AM EDT [facility] Patient Name: Eryn Navarro LM : 1990 Sex: F Pt Unit #: [id number] Location:[facility] Provider: Visit Date/Time: 04/02/20 Primary Insurance: [facility] Secondary Insurance: Self Pay Intake Vital Signs [...] PID. SHE ALSO STATES LUPUS.SHE DID SEE [facility]. SHE WAS DOING [place] BUT STOPPED IT MONTHS NOW. SHE WONDERS IF SHE SHOULD GO BACK TO IT. SHE WAS TO FOLLOW UP WITH THEM IN FEBRUARY GOT R/S D/T COVID. SHE ALSO STATESTHAT WANTED TO HAVE HER BACK IN AUGUST BUT THAT ALSO GOT CANCELED D/T COVID SHE HAS NO CURRENT APPTPER [facility]. SHE WAS RECENTLY IN ER FOR STOMACH [...] TO CHECK ON THESE ANOMALIES FROM CT. 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 Is patient in pain?: Yes [...] today. 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: No working smoke detector in home: [...] Code(s): E06.3 - Autoimmune thyroiditis SNOMED Code(s): 92786332 Category: Medical (3) ISRAEL positive: Status: Acute SNOMED Code(s): 860539537 Category: Medical (4) Weight gain, abnormal: Status: Acute Comment: +/- 40 LBS IN 4 MONTHS Code(s): R63.5 - Abnormal weight gain SNOMED Code(s): 660751195 Category: Medical (5) Polycystic ovaries: Status: Chronic Comment: LABS IN THE PAST WERE NOT SUFFICIENT FOR MAKING DIAGNOSIS SNOMED Code(s): 177742650 Category: Medical Orders Other Medications: New: metformin [...] rce(s) Supporting Document(s) ID Date Data Source [id number] 03/19/2020 06:23:00 PM EDT [facility] [address] [place] [address] [phone] NAME SEX PT STATUS ACCOUNT NUMBER Eryn Navarro LM [facility] [id number] ORDERING PHYSICIAN LOCATION MEDICAL RECORD NO. Emiliano Delarosa MD ER [id number] ATTENDING PHYSICIAN DATE OF DATE OF EXAM/TIME [...] rce(s) Supporting Document(s) ID Date Data Source [id number] 03/19/2020 06:18:00 PM EDT [facility] Reason for ordering culture: Abnormal fi ndings UAMethod of Collection:: Voided Name Value Range Interpretation Code Description Data Jodie rce(s) Supporting Document(s) Color of Urine [facility] Appearance of Urine CLEAR [facility] pH of Urine by Test strip 7.0 5-8 [facility] Specific gravity of Urine by Refractometry 1.009 1.005-1.030 [facility] Leukocyte esterase [Presence] in Urine by Test strip NEGAT JADYN [facility] Nitrite [Presence] in Urine by Test strip NEGATIVE [facility] Protein [Presence] in Urine by Test strip NEGATIVE [facility] Glucose [Mass/volume] in Urine by Automated test strip NEGATIVE NEG ATIVE [facility] Ketones [Presence] in Urine by Test strip NEGATIVE [facility] Urobilinogen [Presence] in Urine 0.2-1 EU/dl [facility] Bilirubin.total [Presence] in Urine by Automated test strip NEGATIVE [facility] Erythrocytes [#/volume] in Urine by Test strip NEGATIVE NEGATIVE [facility] URINE MICROSCOPIC? (CIF) NO [facility] ID Date Data Source [id number] 03/19/2020 05:39:00 PM EDT [facility] @ DID THE CONTROL BAND APPEAR? YES@ DID THE BACKGROUND CLEAR? YES Name Value Range Interpretation Code Description Data Jodie rce(s) Supporting Document(s) Choriogonadotropin [Moles/volume] in Serum or Plasma NEGATIVE NEGAT JADYN [facility] @Reenter manual test result: NEGATIVE@by Irena Laura at 03/19/20 1739. ID Date Data Source [id number] 03/19/2020 05:19:00 PM EDT [facility] Name Value Range Interpretation Code Description Data Jodie rce(s) Supporting Document(s) Leukocytes [#/volume] in Blood by Automated count 7.9 10*3/uL 4.45-10 .71 N [facility] Erythrocytes [#/volume] in Blood by Automated count 4.36 10*6/uL 4.20 -5.40 N [facility] Hemoglobin [Moles/volume] in Blood 13.5 g/dL 10.7-15.4 N [facility] Hematocrit [Volume Fraction] of Blood by Automated count 40.2 % 3 7-47 N [facility] Erythrocyte mean corpuscular volume [Ent itic volume] in Cord blood by Automated count 92.2 fL 80-96 N [facility] ital Erythrocyte mean corpuscular hemoglobin [Entitic mass] by Automated count 31.0 pg 27-31 [facility] E[facility]throcyte mean corpuscular hemoglobin concentration [Mass/volume] in Cord blood 33.6 g/dL 33-37 N [facility] ital Erythrocyte distribution width [Entitic volume] by Automated count 12 % 11-15 N [facility] Platelets [#/volume] in Blood by Automated count 282 10*3/uL 130-472 N [facility] Platelet mean volume [Entitic volume] in Blood 9.6 fL 9.1-13.1 N [facility] Neutrophils/100 leukocytes in Blood by Automated count 50.8 % 41- 77 N [facility] Neutrophils [#/volume] in Blood by Automated count 4.0 U 1.7-7.6 N [facility] Lymphocytes/100 leukocytes in Blood by Automated count 32.7 % 14- 46 N [facility] Lymphocytes [#/volume] in Blood by Automated count 2.6 U 0.6-4.6 N [facility] Monocytes/100 leukocytes in Blood by Automated count 8.1 % 4-12 N [facility] Monocytes [#/volume] in Blood by Automated count 0.6 U 0.2-1.2 N [facility] Eosinophils/100 leukocytes in Blood by Automated count 7.4 % 0-7 Above high normal [facility] Eosinophils [#/volume] in Blood by Automated count 0.6 U 0.0-0.5 Above high normal [facility] Basophils/100 leukocytes in Blood by Automated count 0.5 % 0.4-1 .3 N [facility] Basophils [#/volume] in Blood by Automated count 0.0 U 0.0-0.2 N [facility] NUCLEATED RED BLOOD CELL 0 % [facility] NUCLEATED RED BLOOD CELL# 0 U [facility] Immature granulocytes [Presence] in Blood by Automated count 0-2 N [facility] Immature granulocytes [#/volume] in Blood by Automated count 0.0 U 0-0.1 N [facility] Manual Differential panel - Blood NO [facility] ID Date Data Source [id number] 03/19/2020 05:38:00 PM EDT [facility] Name Value Range Interpretation Code Description Data Jodie rce(s) Supporting Document(s) Urea nitrogen [Mass/volume] in Serum or Plasma 8 mg/dL 9-23 Below low normal [facility] Sodium [Moles/volume] in Serum or Plasma 140 mmol/L 132-146 [facility] Potassium [Moles/volume] in Serum or Plasma 3.7 mmol/L 3.5-5.5 [facility] Chloride [Moles/volume] in Serum or Plasma 108 mmol/L 99-109 [facility] Carbon dioxide, total [Moles/volume] in Serum or Plasma 27 mmol/L 20 -31 N [facility] Anion gap in Serum or Plasma 9 mmol/L 8-16 N [facility] Glucose [Mass/volume] in Serum or Plasma 96 mg/dL 74-106 [facility] Creatinine 0.7 mg/dL 0.5-1.1 [facility] Glomerular filtration rate/1.73 sq M.pre dicted [Volume Rate/Area] in Serum or Plasma Greater Than 60 ABOVE 60 [facility] Alanine aminotransferase [Enzymatic acti vity/volume] in Serum or Plasma by With P-5'-P 49 U/L 10-49 N [facility] ital Aspartate aminotransferase [Enzymatic ac tivity/volume] in Serum or Plasma by With P-5'-P 30 U/L 0-33 N [facility] pital Alkaline phosphatase [Enzymatic activity/volume] in Serum or Plasma 71 U/L 45-129 N [facility] Calcium [Mass/volume] in Serum or Plasma 9.5 mg/dL 8.5-10.1 N [facility] Bilirubin.total [Mass/volume] in Serum or Plasma 0.5 mg/dL 0.3-1.2 N [facility] Albumin [Mass/volume] in Serum or Plasma by Bromocresol purple (BCP) dye binding method 4.0 g/dL 3.2-4.8 N [facility] ital Protein [Mass/volume] in Serum or Plasma 7.4 g/dL 5.7-8.2 N [facility] ID Date Data Source [id number] 03/19/2020 05:38:00 PM EDT [facility] Name Value Range Interpretation Code Description Data Jodie rce(s) Supporting Document(s) Amylase [Enzymatic activity/volume] in Serum or Plasma 70 U/L 30- 118 N [facility] ID Date Data Source [id number] 03/19/2020 05:38:00 PM EDT [facility] Name Value Range Interpretation Code Description Data Jodie rce(s) Supporting Document(s) Lipase [Enzymatic activity/volume] in Serum or Plasma 112 U/L 73-3 93 N [facility] ID Date Data Source [id number] 03/19/2020 05:03:00 PM EDT [facility] ED Physician Documentation NAME: Eryn Navarro BRITTANIE : 1990 AGE: 30 MR#: [id number] SERVICE DATE: 03/19/[address]: Emiliano Delarosa MD PRIMARY CARE DR: Zabrina Liu [facility] ROOM#: HPI (Adult, General) General [...] % (Auto) 50.8, Lymph % (Auto) 32.7, [place] % (Auto) 8.1, Eos % (Auto) 7.4 [...] Appearance Clear, Urine pH 7.0, Ur Specific [place] 1.009,Urine Protein Negative, Urine Ketones Negative, Urine [...] rce(s) Supporting Document(s) ID Date Data Source [id number] 03/07/2020 12:17:00 PM EDT [facility] Method of Collection:: Clean Catch Name Value Range Interpretation Code Description Data Jodie rce(s) Supporting Document(s) Color of Urine [facility] Appearance of Urine CLEAR [facility] pH of Urine by Test strip 7.0 5-8 [facility] Specific gravity of Urine by Refractometry 1.003 1.005 -1.030 Abnormal (applies to non-numeric results) [facility] Leukocyte esterase [Presence] in Urine by Test strip NEGAT JADYN [facility] Nitrite [Presence] in Urine by Test strip NEGATIVE [facility] Protein [Presence] in Urine by Test strip NEGATIVE [facility] Glucose [Mass/volume] in Urine by Automated test strip NEGATIVE NEG ATIVE [facility] Ketones [Presence] in Urine by Test strip NEGATIVE [facility] Urobilinogen [Presence] in Urine 0.2-1 EU/dl [facility] Bilirubin.total [Presence] in Urine by Automated test strip NEGATIVE [facility] Erythrocytes [#/volume] in Urine by Test strip NEGATIVE NEGATIVE [facility] URINE MICROSCOPIC? (CIF) NO [facility] ID Date Data Source [id number] 03/07/2020 09:56:00 AM EDT [facility] Patient Name: Eryn Navarro Lm : 1990 Sex: F Pt Unit #: [id number] Location:[facility] Provider: Visit Date/Time: 03/07/20 Primary [facility]: [facility] Secondary Insurance: Self Pay Intake Vital Signs [...] the pain is from thator something else. 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 working smoke detector in home: [...] - Pelvic and perineal pain SNOMED Code(s): 29782598 Category: Medical Plan - Marito Bosch MD: [...] Female pelvic inflammatory disease, unspecified SNOMED Code(s): 208373307 Category: Medical Orders Other Medications: New: doxycycline [...] rce(s) Supporting Document(s) ID Date Data Source [id number] 02/04/2020 08:17:00 AM EDT [facility] SP DESC: IUD CULTURENO ANAEROBIC ORGANIS MS ISOLATED Name Value Range Interpretation Code Description Data Jodie rce(s) Supporting Document(s) Bacteria identified in Genital specimen by Aerobe culture SP DESC: IUD CULTURE [facility] No N. Gonorrhoaea isolatedFEW Staph Spp. coag neg ID Date Data Source [id number] 02/04/2020 08:17:00 AM EDT [facility] SP DESC: IUD CULTURENO ANAEROBIC ORGANIS MS ISOLATED Name Value Range Interpretation Code Description Data Jodie rce(s) Supporting Document(s) ID Date Data Source [id number] 02/01/2020 11:03:00 AM EDT [facility] Patient Name: ERYN NAVARRO LM : 1990 Sex: F Pt Unit #: [id number] Location:[facility] Provider: Visit Date/Time: 02/01/20 Primary Insurance: [facility] Secondary Insurance: Self Pay ADDENDUM Labs: 01/22/2020: [...] procedure. IUD removed and replaced with Mirena, [facility] #: [id number], lot #: [id number], exp: 01/2022. Remove by 01/31/2025. 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: No working smoke detector in home: [...] ectopic 2010, she was told by the TRANSMITTER OPERATOR at that time, that she had [...] reinsertion of intrauterine contraceptive device SNOMED Code(s): 238428440 Category: Medical Plan - Marito Bosch MD: [...] - Pelvic and perineal pain SNOMED Code(s): 82957575 Category: Medical Plan - Marito Bosch MD: [...] rce(s) Supporting Document(s) ID Date Data Source [id number] 01/29/2020 02:09:00 PM EDT [facility] Patient Name: ERYN NAVARRO LM : 1990 Sex: F Pt Unit #: [id number] Location:[facility] Provider: Visit Date/Time: 01/29/20 Primary [facility]: [facility] Secondary Insurance: Self Pay Intake Vital Signs [...] on 01/22/2020. Pt's PAP is still pending. 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 Marito Bosch MD [id number] ATTENDING PHYSICIAN DATE OF DATE OF EXAM/TIME [...] rce(s) Supporting Document(s) ID Date Data Source [id number] 01/30/2020 07:47:00 AM EDT [facility] LAST MENSTRUAL PERIOD [id number] on Technique: BRUSH-SPATULAPATIENT INFORMATION: IUDPREVIOUS CYTOLOGY: NEGATIVEDATES AND RESULTS: 2018 pap negativePREVIOUS TREATMENT: NONEBody Site: CERVIX Name Value Range Interpretation Code Description Data Jodie rce(s) Supporting Document(s) Microscopic observation [Identifier] in Cervix by Cyto stain.thin pre p [facility] ID Date Data Source [id number] 01/24/2020 06:06:00 AM EDT [facility] NegativeNegativePerformed at: [facility] [address] [id number] Director: Shanell Kyle MD, Phone: [phone] @01/22/20 1658: UA W/ MICRO added. RFLXG = UMIC CIF.Method of Collection:: Clean Catch @01/22/20 1728: Urine culture added. RFL XG = CULT.ADD. @01/22/20 1658: UA W/ MICRO added. RFLXG = UMIC CIF.Method of Collection:: Clean Catch Name Value Range Interpretation Code Description Data [facility] rce(s) Supporting Document(s) Trichomonas vaginalis DNA [Presence] in Unspecified specimen by Probe and target amplification method Negative [facility] Performed at: [facility] [address] [place] [id number] Director: Shanell Kyle MD, Phone: [phone] Gardnerella vaginalis rRNA [Presence] in Genital specimen by DNA probe Negative [facility] [place] sp rRNA [Presence] in Vaginal fluid by DNA probe N egative [facility] ID Date Data Source [id number] 01/24/2020 06:06:00 AM EDT [facility] NegativeNegativePerformed at: [facility] [address] [id number] Director: Shanell Kyle MD, Phone: [phone] @01/22/20 1658: UA W/ MICRO added. RFLXG = UMIC CIF.Method of Collection:: Clean Catch @01/22/20 1728: Urine culture added. RFL XG = CULT.ADD. @01/22/20 1658: UA W/ MICRO added. RFLXG = UMIC CIF.Method of Collection:: Clean Catch Name Value Range Interpretation Code Description Data Jodie rce(s) Supporting Document(s) ID Date Data Source [id number] 01/22/2020 05:28:00 PM EDT [facility] NegativeNegativePerformed at: [facility] - [facility] [address] [id number] Director: Shanell Kyle MD, Phone: [phone] @01/22/20 1658: UA W/ MICRO added. RFLXG = UMIC CIF.Method of Collection:: Clean Catch @01/22/20 1728: Urine culture added. RFL XG = CULT.ADD. @01/22/20 1658: UA W/ MICRO added. RFLXG = UMIC CIF.Method of Collection:: Clean Catch Name Value Range Interpretation Code Description Data [facility] rce(s) Supporting Document(s) Color of Urine [facility] Appearance of Urine CLEAR [facility] pH of Urine by Test strip 6.5 5-8 [facility] Specific gravity of Urine by Refractometry 1.006 1.005-1.030 [facility] Leukocyte esterase [Presence] in Urine by Test strip NEGATIVE Abnormal (applies to non-numeric results) [facility]!!!!A Culture has been added to this specimen per established criteria Nitrite [Presence] in Urine by Test strip NEGATIVE [facility] Protein [Presence] in Urine by Test strip NEGATIVE [facility] Glucose [Mass/volume] in Urine by Automated test strip NEGATIVE NEG ATIVE [facility] Ketones [Presence] in Urine by Test strip NEGATIVE [facility] Urobilinogen [Presence] in Urine 0.2-1 EU/dl [facility] Bilirubin.total [Presence] in Urine by Automated test strip NEGATIVE [facility] Erythrocytes [#/volume] in Urine by Test strip NEGATIVE NEGATIVE [facility] URINE MICROSCOPIC? (CIF) Microscopic Added [facility] ID Date Data Source [id number] 01/23/2020 01:46:00 PM EDT [facility] NegativeNegativePerformed at: [facility] [address] [id number] Director: Shanell Kyle MD, Phone: [phone] @01/22/20 1658: UA W/ MICRO added. RFLXG = UMIC CIF.Method of Collection:: Clean Catch @01/22/20 1728: Urine culture added. RFL XG = CULT.ADD. @01/22/20 1658: UA W/ MICRO added. RFLXG = UMIC CIF.Method of Collection:: Clean Catch Name Value Range Interpretation Code Description Data Jodie rce(s) Supporting Document(s) Bacteria identified in Urine by Culture [facility] ID Date Data Source [id number] 01/22/2020 05:28:00 PM EDT [facility] NegativeNegativePerformed at: [facility] [address] [id number] Director: Shanell Kyle MD, Phone: [phone] @01/22/20 1658: UA W/ MICRO added. RFLXG = UMIC CIF.Method of Collection:: Clean Catch @01/22/20 1728: Urine culture added. RFL XG = CULT.ADD. @01/22/20 1658: UA W/ MICRO added. RFLXG = UMIC CIF.Method of Collection:: Clean Catch Name Value Range Interpretation Code Description Data Jodie rce(s) Supporting Document(s) Leukocytes [#/volume] in Urine by Manual count 8-12 /hpf 0-5 Above high normal [facility] Cells [Type] in Urine sediment by Light microscopy [facility] Bacteria [Presence] in Urine sediment by Light microscopy NEGATIVE Above high normal [facility] ID Date Data Source [id number] 01/22/2020 02:37:00 PM EDT [facility] Patient Name: ERYN NAVARRO LM : 1990 Sex: F Pt Unit #: [id number] Location:[facility] Provider: Visit Date/Time: 01/22/20 Primary Insurance: [facility] Secondary Insurance: Self Pay Intake Vital Signs [...] after that but her sx have returned. 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 For the past 1 week has [...] Unspecified ovarian cyst, left side SNOMED Code(s): 440189623 Category: Medical Plan - Marito Bosch MD: 1. Cystic ovarian mass in adnexa, predominantly in left adnexa into the midline. 2. Rule out ovarian cyst. 3. Pelvic sonogramTV/AB. Orders Other Orders: Orders: PAP w HPV-Genotype if Positive 01/22/20 Z12.4 Follow Up: 1 Week Electronically Signed By: <Electronically signed by Marito Bosch MD> Date/Time Signed: 01/23/20 4877 Name Value Range Interpretation Code Description Data Jodie rce(s) Supporting Document(s) ID Date Data Source [id number] 11/05/2019 01:57:00 PM [facility] [address] [place] [address] [phone] NAME SEX PT STATUS ACCOUNT NUMBER ERYN NAVARRO LM REG REF [id number] ORDERING PHYSICIAN LOCATION MEDICAL RECORD NO. Davide López DO [id number] ATTENDING PHYSICIAN DATE OF DATE OF EXAM/TIME [...] Trans Dt/Tm: Trans by: DT Prt Dt/Tm: 7022-2880: Total DLP = 0.00 mGy-cm 2653-4727: Total Radiation Dose = 0.0000 mSv Lifetime Dose: 0 mSv Name Value Range Interpretation Code Description Data Jodie rce(s) Supporting Document(s) ID Date Data Source [id number] 11/01/2019 02:10:00 PM [facility] Name Value Range Interpretation Code Description Data Jodie rce(s) Supporting Document(s) Hemoglobin A1c % 5.3 % 4.0-6.0 N [facility] The following ranges may be u sed for interpretation of results: HGBA1C degree of glucose control: Greater than 8%: Action Suggested * Less than 7%: Goal of Diabetic Therapy Less than 6%: NormalFactors such as duration of diabetes, adherence to therapyand the age of the patient should also be considered inassessing the degree of blood glucose control.* High risk of developing jail complications such asretinopathy, nephropathy, neuropathy, cardiopathy, etc. Some danger of hypoglycemic reaction in Type I diabetics.Some glucose intolerant individuals and "Sub Clinical"diabetics may demonstrate HGBA1C levels in this area. Glucose mean value [Moles/volume] in Blood Estimated f rom glycated hemoglobin 105 mg/dL [facility] An A1C of 7% - the goal of diabetic ther apy - is equivalentto an EAG of 154 mg/dl. ID Date Data Source [id number] 11/01/2019 02:17:00 PM [facility] Name Value Range Interpretation Code Description Data Jodie rce(s) Supporting Document(s) Follitropin [Units/volume] in Serum or Plasma 5.9 [iU]/L [facility] FSH REFERENCE RANGE IU/L Males Ages 13 - 70 yrs 1.4 - 18.1 Normally Menstruating Females Follicular Phase 2.5 - 10.2 Mid-Cycle Peak 3.4 - 33.4 Luteal Phase 1.5 - 9.1 Post-menopausal Females 23.0 - 116.3 Less Than 0.3 ID Date Data Source [id number] 11/02/2019 08:06:00 PM [facility] Name Value Range Interpretation Code Description Data Jodie rce(s) Supporting Document(s) Testosterone 41 ng/dL 8-48 [facility] Free Testosterone (Direct) 8.5 pg/mL 0.0-4.2 Above high normal [facility] Performed at: RN - [facility] [id number] [id number] Director: Shanell Kyle MD, Phone: [phone] ID Date Data Source 11/01/2019 02:17:00 PM [facility] Name Value Range Interpretation Code Description Data Jodie rce(s) Supporting Document(s) Lutropin [Units/volume] in Serum or Plasma 7.8 [iU]/L [facility] LH REFERENCE RANGE IU/L Males 20 - 70yrs 1.5 - 9.3 Greater than 70yrs 3.1 - 34.6 Normally Menstruating Females Follicular Phase 1.9 - 12.5 Mid-Cycle Peak 8.7 - 76.3 Luteal Phase 0.5 - 16.9 Postmenopausal Females 15.9 - 54.0 Less Than 0.1 - 1.5 Contraceptives 0.7 - 5.6 Children Less Than 0.1 - 6.0 ID Date Data Source [id number] 11/01/2019 02:17:00 PM [facility] Name Value Range Interpretation Code Description Data Jodie rce(s) Supporting Document(s) Prolactin [Mass/volume] in Serum or Plasma 4.3 ng/mL [facility] PROLACTIN REFERENCE RANGE ng/mL Males 2.1 - 17.7 Females Non 2.8 - 29.2 9.7 - 208.5 Postmenopausal 1.8 - 20.3 ID Date Data Source [id number] 11/01/2019 02:17:00 PM [facility] Name Value Range Interpretation Code Description Data Jodie rce(s) Supporting Document(s) Thyroxine (T4) free [Mass/volume] in Serum or Plasma 0.91 ng/dL 0.89- 1.76 N [facility] ID Date Data Source [id number] 11/01/2019 02:17:00 PM [facility] Name Value Range Interpretation Code Description Data Jodie rce(s) Supporting Document(s) Thyrotropin [Units/volume] in Serum or Plasma by Detec tion limit <= 0.005 mIU/L 0.72 u[iU]/mL [facility]35[facility] Date Data Source [id number] 11/02/2019 08:06:00 PM [facility] Name Value Range Interpretation Code Description Data Jodie rce(s) Supporting Document(s) Trichomonas vaginalis DNA [Presence] in Unspecified specimen by Probe and target amplification method Negative [facility] Performed at: RN - [facility] [place] [id number] Director: Shanell Kyle MD, Phone: [phone] Gardnerella vaginalis rRNA [Presence] in Genital specimen by DNA probe Negative [facility] [place] sp rRNA [Presence] in Vaginal fluid by DNA probe N egative [facility] ID Date Data Source [id number] 11/01/2019 12:01:00 PM [facility] Patient Name: ERYN NAVARRO LM : 1990 Sex: F Pt Unit #: [id number] Location:[facility] Provider: Visit Date/Time: 11/01/19 [facility] Secondary Insurance: Self Pay Intake Vital Signs [...] Obtained a urine. 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: No working smoke detector in home: [...] rce(s) Supporting Document(s) ID Date Data Source [id number] 11/01/2019 01:41:00 PM EST [facility] Method of Collection:: Clean Catch Name Value Range Interpretation Code Description Data Jodie rce(s) Supporting Document(s) Color of Urine [facility] Appearance of Urine CLEAR [facility] pH of Urine by Test strip 7.0 5-8 [facility] Specific gravity of Urine by Refractometry 1.006 1.005-1.030 [facility] Leukocyte esterase [Presence] in Urine by Test strip NEGAT JADYN [facility] Nitrite [Presence] in Urine by Test strip NEGATIVE [facility] Protein [Presence] in Urine by Test strip NEGATIVE [facility] Glucose [Mass/volume] in Urine by Automated test strip NEGATIVE NEG ATIVE [facility] Ketones [Presence] in Urine by Test strip NEGATIVE [facility] Urobilinogen [Presence] in Urine 0.2-1 EU/dl [facility] Bilirubin.total [Presence] in Urine by Automated test strip NEGATIVE [facility] Erythrocytes [#/volume] in Urine by Test strip NEGATIVE NEGATIVE [facility] URINE MICROSCOPIC? (CIF) NO [facility] Procedure Social History Code Duration Value Status Description Data Source(s ) Smoking 12/09/2020 12:00:00 AM EST Never Smoker completed Never S moker eCW1 ([facility]) Alcohol intake 12/04/2020 12:00:00 AM EST Yes completed [facility] Smoking 12/04/2020 12:00:00 AM EST Never smoker completed Never s [facility] 11/17/2020 02:46:00 PM EST No completed No [facility] 11/17/2020 02:46:00 PM EST No completed No [facility] 11/17/2020 02:46:00 PM EST Never smoker completed Never s [facility] Smoking 11/17/2020 02:46:00 PM EST Never smoker completed Never s [facility] Alcohol intake 11/15/2020 12:00:00 AM EST Yes completed [facility] Smoking 11/15/2020 12:00:00 AM EST Never smoker completed Never s [facility] Smoking 10/24/2020 12:00:00 AM EST Patient has never smoked co mpleted Patient has never smoked MEDENT ([facility]) Smoking 10/01/2020 12:00:00 AM EST Never Smoker completed Never S moker eCW1 ([facility]) Smoking 10/01/2020 12:00:00 AM EST Never Smoker completed Never S moker eCW1 ([facility]) Alcohol intake 09/30/2020 12:00:00 AM EST Current non-d petra of alcohol (finding) completed Current non-drinker of alcohol (finding) [facility] Tobacco use and exposure 09/30/2020 12:00:00 AM EST Never used co mpleted Never used [facility] Smoking 09/30/2020 12:00:00 AM EST Never smoker completed Never s [facility] Smoking 09/11/2020 12:00:00 AM EDT Never Smoker completed Never S moker eCW1 ([facility]) Smoking 09/11/2020 12:00:00 AM EDT Never Smoker completed Never S moker eCW1 ([facility]) Smoking 09/03/2020 12:00:00 AM EDT Never Smoker completed Never S moker eCW1 ([facility]) 04/02/2020 11:27:00 AM EDT No completed [facility] 04/02/2020 11:27:00 AM EDT No completed No [facility] 03/19/2020 04:36:00 PM EDT Never smoker completed Never s [facility] Smoking 03/19/2020 04:36:00 PM EDT Never smoker completed Never s [facility] 03/19/2020 04:36:00 PM EDT Never smoker completed Never s [facility] Smoking 03/19/2020 04:36:00 PM EDT Never smoker completed Never s [facility] 03/19/2020 04:36:00 PM EDT Never smoker completed Never s [facility] Smoking 03/19/2020 04:36:00 PM EDT Never smoker completed Never s [facility] 03/19/2020 04:36:00 PM EDT Never smoker completed Never s [facility] Smoking 03/19/2020 04:36:00 PM EDT Never smoker completed Never s [facility] 03/07/2020 10:25:00 AM EDT No completed [facility] 03/07/2020 10:25:00 AM EDT No completed [facility] Vital Signs ID Date Data Source UNK Name Value Range Interpretation Code Description Data Source(s) Diastolic blood pressure 72 mm[Hg] 72 mm[Hg] eCW1 ([facility]) Systolic blood pressure 128 mm[Hg] 128 mm[Hg] e CW1 ([facility]) Respiratory rate 18 /min 18 /min eCW1 ([facility]) Heart rate 71 /min 71 /min eCW1 ([facility]) Body mass index (BMI) [Ratio] 38.03 kg/m2 38.03 kg/m2 eCW1 ([facility]) Body height 64 [in_i] 64 [in_i] eCW1 ([facility]) Body weight 221.6 [lb_av] 221.6 [lb_av] eCW1 ([facility]) Body mass index (BMI) [Ratio] 37.08 kg/m2 37.08 kg/m2 [facility] Body weight 97.977 kg 97.977 kg [facility] Body height 162.6 cm 162.6 cm [facility] Oxygen saturation in Arterial blood by Pulse oximetry 97 % 97 % [facility] Body mass index (BMI) [Ratio] 38.11 kg/m2 38.11 kg/m2 [facility] Body weight 100.699 kg 100.699 kg [facility] Body height 162.6 cm 162.6 cm [facility] Heart rate 72 /min 72 /min [facility] Diastolic blood pressure 90 mm[Hg] 90 mm[Hg] [facility] Systolic blood pressure 130 mm[Hg] 130 mm[Hg] [facility] Diastolic blood pressure--sitting 93 mm[Hg] 93 mm[Hg] MEDENT ([facility]) [place], large cuff/Ra Systolic blood pressure--sitting 130 mm[Hg] 130 mm[Hg] MEDENT ([facility]) [place], large cuff/Ra Heart rate 70 /min 70 /min [facility] ([facility]) Body mass index (BMI) [Ratio] 37.4 kg/m2 37.4 k g/m2 [facility] ([facility]) Body height 64 [in_i] 64 [in_i] [facility] ([facility]) 5'4" Body weight 218.00 [lb_av] 218.00 [lb_av] MEDEN T ([facility]) Diastolic blood pressure 70 mm[Hg] 70 mm[Hg] eCW1 ([facility]) Systolic blood pressure 132 mm[Hg] 132 mm[Hg] e CW1 ([facility]) Body temperature 97.8 [degF] 97.8 [degF] eCW1 ( [facility]) Respiratory rate 18 /min 18 /min eCW1 ([facility]) Heart rate 97 /min 97 /min eCW1 ([facility]) Body mass index (BMI) [Ratio] 37.00 kg/m2 37.00 kg/m2 eCW1 ([facility]) Body height 64 [in_i] 64 [in_i] eCW1 ([facility]) Body weight 97.7 kg 97.7 kg eCW1 ([facility]) Body weight 215.6 [lb_av] 215.6 [lb_av] eCW1 ([facility]) Diastolic blood pressure 78 mm[Hg] 78 mm[Hg] eCW1 ([facility]) Systolic blood pressure 132 mm[Hg] 132 mm[Hg] e CW1 ([facility]) Body mass index (BMI) [Ratio] 37.24 kg/m2 37.24 kg/m2 eCW1 ([facility]) Body height 64 [in_i] 64 [in_i] eCW1 ([facility]) Body weight 217 [lb_av] 217 [lb_av] eCW1 ([facility]) Diastolic blood pressure 80 mm[Hg] 80 mm[Hg] eCW1 ([facility]) Systolic blood pressure 130 mm[Hg] 130 mm[Hg] e CW1 ([facility]) Body mass index (BMI) [Ratio] 36.93 kg/m2 36.93 kg/m2 eCW1 ([facility]) Body height 64 [in_i] 64 [in_i] eCW1 ([facility]) Body weight 97.61 kg 97.61 kg eCW1 ([facility]) Body weight 215.2 [lb_av] 215.2 [lb_av] eCW1 ([facility]) Diastolic blood pressure 78 mm[Hg] 78 mm[Hg] eCW1 ([facility]) Systolic blood pressure 130 mm[Hg] 130 mm[Hg] e CW1 ([facility]) Body mass index (BMI) [Ratio] 36.9 kg/m2 36.9 k g/m2 eCW1 ([facility]) Body height 64 [in_i] 64 [in_i] eCW1 ([facility]) Body weight 215 [lb_av] 215 [lb_av] eCW1 ([facility]) Diastolic blood pressure 88 mm[Hg] 88 mm[Hg] [place] ([facility]) Systolic blood pressure 136 mm[Hg] 136 mm[Hg] [place] ([facility]) Oxygen saturation in Arterial blood by Pulse oximetry 98 % 98 % [place] ([facility]) Body temperature 97.9 [degF] 97.9 [degF] [facility] ([facility]) Respiratory rate 18 /min 18 /min [place] ([facility]) Heart rate rhythm 1 1 [place] ([facility]) Heart rate 75 /min 75 /min [place] ([facility]) ID Date Data Source [id number] 10/07/2020 10:03:57 AM [facility] Name Value Range Interpretation Code Description Data Source(s) WEIGHT RECORDED 218 lb 218 lb [facility] Body height Measured 64.02 in 64.02 in [facility] Patient Treatment Plan of Care Planned Activity Planned Date Details Description Data Source (s) Aspirin 81 MG Delayed Release Oral Tablet 10/23/2020 12:00:00 AM [facility] Amoxicillin 500 MG Oral Capsule 12/29/2019 12:00:00 AM [facility] ([facility]) Fluconazole 150 MG Oral Tablet [Diflucan] 12/29/2019 12:00:00 AM [facility] ([facility]) Cyclobenzaprine hydrochloride 5 MG Oral Tablet 10/03/2019 12:00:00 AM [facility] Fluconazole 150 MG Oral Tablet [Diflucan] 09/25/2019 12:00:00 AM [facility] ([facility]) Amoxicillin 500 MG Oral Capsule 09/25/2019 12:00:00 AM [facility]) Levonorgestrel 0.525186 MG/HR Drug Implant [facility] Levothyroxine Sodium 0.025 MG Oral Tablet [facility]
[2020-12-19] MEDS ORDERED: ISOVUE-370 76% 100ML VIAL As Ordered ONE (12:24)
[2020-12-19 12:27] LABS: BASO % 0.4 % (0.0-1.0); EOS # 0.4 10^3/uL (0.0-0.5); EOS % 4.6 % (0.0-3.0); HEMATOCRIT 41.1 % (36.0-47.0); HEMOGLOBIN 13.2 g/dl (12.0-15.5); LYMPH # 2.1 10^3/uL (1.5-5.0); LYMPH % 23.4 % (24.0-44.0); MEAN CORPUSCULAR HEMOGLOBIN 29.7 pg (27.0-33.0); MEAN CORPUSCULAR HGB CONC 32.1 g/dl (32.0-36.5); MEAN CORPUSCULAR VOLUME 92.4 fl (80.0-96.0); MONO # 0.7 10^3/uL (0.0-0.8); MONO % 7.6 % (0.0-5.0); NEUTROPHILS # 5.7 10^3/uL (1.5-8.5); NEUTROPHILS % 63.7 % (36.0-66.0); PLATELET COUNT, AUTOMATED 303 10^3/uL (150-450); RED BLOOD COUNT 4.45 10^6/uL (4.00-5.40); WHITE BLOOD COUNT 8.9 10^3/uL (4.0-10.0)
[2020-12-19] MEDS ORDERED: NS 1,000 ML IV ONE (12:45)
[2020-12-19 12:56] LABS: ALBUMIN 3.7 GM/DL (3.2-5.2); ALT/SGPT 41 U/L (12-78); BILIRUBIN,DIRECT 0.1 MG/DL (0.0-0.2); BILIRUBIN,TOTAL 0.4 MG/DL (0.2-1.0); LIPASE 114 U/L (73-393); TOTAL PROTEIN 6.9 GM/DL (6.4-8.2)
--- NOTE | 2020-12-19 13:00 | REP ---
INDICATION: abdominal pain HX splenic infarc/PFO. COMPARISON: Comparison CT angiography September 24, 2020.. TECHNIQUE: Helical scanning is acquired following the intravenous injection of 100 mL of intravenous Isovue 370. 3 mm axial images are re-formatted. Coronal and sagittal MPR and coronal MIP images are generated. In addition, 3D surface rendered color images are generated and viewed in a rotational format. FINDINGS: Preliminary digital newspaper vendor radiograph demonstrates a normal bowel gas pattern and right upper quadrant clips. There is diffuse fatty infiltration of the liver. There is a 1.2 cm area of increased density in the left lobe of the liver near the capsule on today's study which could be fat sparing or a small hemangioma. It is unchanged from September 24, [address] study. Normal adrenal glands are seen. No abnormalities noted in the pancreas. There is a small 12 mm cyst in the left kidney laterally. No hydronephrosis is seen. The suprarenal and infrarenal abdominal aorta normal in caliber. The inferior mesenteric artery, superior mesenteric artery, and celiac axis are unremarkable and widely patent. Singular nonstenotic bilateral renal arteries are again observed. The common iliac and internal iliac arteries are patent. The proximal external iliac arteries are unremarkable. The splenic artery has a normal appearance. There are granulomatous calcifications in the spleen. The 2 previous wedge-shaped splenic infarcts seen on the September 24, [address] study show retraction and shrinkage with contour indentation at these sites. Somewhat mottled but normal appearing splenic enhancement is seen today. No current infarct is seen. There is a tiny accessory splenule. No retroperitoneal mass or adenopathy is seen. Small and large bowel loops are unremarkable. IMPRESSION: Volume loss and contour indentation now visible at the site of the 2 previously noted splenic infarcts. Consistent with healing. No acute infarction is seen. Fatty infiltration of the liver. Post cholecystectomy. Small cyst left kidney. No visceral artery occlusion or stenosis seen. <Electronically signed by Arsh Cano > 12/19/20 [id number]
[2020-12-19 14:10] LABS: CK-MB VALUE MASS < 1.0 NG/ML (<3.6); CPK CREATINE PHOSPHOKINASE 79 U/L (26-192); MB/CK RELATIVE INDEX 1.27 (< OR =4); TROPONIN I < 0.02 NG/ML (< 0.10)
--- NOTE | 2020-12-19 14:57 | REP ---
INDICATION: abdominal pain\. COMPARISON: Comparison is made with today's CT study of the abdomen.. TECHNIQUE: Complete abdominal sonography. FINDINGS: The gallbladder is surgically absent. Scanning through right upper quadrant the abdomen demonstrates limited penetration of the liver. Liver is at the upper range of normal in size with midclavicular span is 16.4 cm. There is a 1.4 x 1.1 x 1.4 cm hypoechoic area in the left lobe of the liver consistent with the hyperemic focus seen on CT. This is indicative of a small benign hemangioma. No other focal liver lesion is seen. Limited views of pancreas show no abnormality. There is no evidence of ascites. Normal caliber aorta is noted. There are multiple echogenic foci in the spleen consistent with granulomatous calcifications. Spleen is not enlarged measuring 11.4 cm in greatest diameter. Common bile duct is normal measuring 0.5 cm in greatest diameter. Renal cortical echogenicity pattern is normal and renal contours are smooth. There is a cyst in the lower pole left kidney measuring 1.5 cm in greatest diameter. No hydronephrosis is seen. Left renal dimensions are 11.6 x 5.5 x 5.5 cm. Right kidney measures 11.2 x 5.8 x 4.9 cm. IMPRESSION: Status post cholecystectomy. 1.4 cm hemangioma left lobe of the liver. Normal CBD 5 mm. Splenic granulomatous calcifications. 1.5 cm cyst lower pole left kidney. Otherwise negative. <Electronically signed by Arsh Cano > 12/19/20 [id number]
[2020-12-19 15:07] VITALS: BP 128/72
== END 2020-12-19 16:23 | disposition home or self-care (01) ==
LOC: M ED 10:26
DX: D73.5 Infarction of spleen (principal); N28.1 Cyst of kidney, acquired; K76.0 Fatty (change of) liver, not elsewhere classified; Z88.1 Allergy status to other antibiotic agents; Z88.2 Allergy status to sulfonamides; Z91.09 Other allergy status, other than to drugs and biological substances
CPT/HCPCS: 36415; 74175; 76700; 80047; 80076; 82550; 82553; 83605; 83690; 84439; 84443; 84481; 85025; 85379; 96360; 99284; Q9967

== ENCOUNTER 2021-03-18 13:14 | Inpatient (IN) | payer OTHER ==
[~2021-03-18] VITALS: Ht 162.6 cm; Wt 100.3 kg
[~2021-03-18 13:14] MED LIST changes: +APPL300T4 PO; +ASPI-569 PO; -ASPI81TAEC PO; +GING1CAP PO; +RA T500C2 PO
[2021-03-18 13:51] LABS: BASO % 0.3 % (0.0-1.0); EOS # 0.4 10^3/uL (0.0-0.5); EOS % 3.9 % (0.0-3.0); HEMATOCRIT 41.3 % (36.0-47.0); HEMOGLOBIN 13.3 g/dl (12.0-15.5); LYMPH # 2.1 10^3/uL (1.5-5.0); LYMPH % 21.9 % (24.0-44.0); MEAN CORPUSCULAR HEMOGLOBIN 29.6 pg (27.0-33.0); MEAN CORPUSCULAR HGB CONC 32.2 g/dl (32.0-36.5); MEAN CORPUSCULAR VOLUME 91.8 fl (80.0-96.0); MONO # 0.6 10^3/uL (0.0-0.8); MONO % 6.3 % (2.0-8.0); NEUTROPHILS # 6.4 10^3/uL (1.5-8.5); NEUTROPHILS % 67.2 % (36.0-66.0); PLATELET COUNT, AUTOMATED 348 10^3/uL (150-450); WHITE BLOOD COUNT 9.5 10^3/uL (4.0-10.0)
[2021-03-18 14:03] LABS: INR 0.94; PROTHROMBIN TIME 12.8 SECONDS (12.5-14.3)
--- NOTE | 2021-03-18 14:03 | REP ---
INDICATION: CHEST PAIN. COMPARISON: Comparison chest x-ray October 01, 2020. TECHNIQUE: Portable upright AP chest radiograph. FINDINGS: The previously noted granulomatous calcification is again seen in the left lower lobe. Right hemidiaphragm is somewhat elevated and there are clips in right hilar region. There is linear platelike atelectasis in the right perihilar region unchanged. There is no evidence of infiltrate.. No pleural effusion is seen. Heart is not enlarged. Pulmonary vasculature is not increased. IMPRESSION: No active disease. <Electronically signed by Arsh Cano > 03/18/21 [id number]
[2021-03-18 14:27] LABS: ALBUMIN 3.8 GM/DL (3.2-5.2); ALT/SGPT 32 U/L (12-78); BILIRUBIN,DIRECT < 0.1 MG/DL (0.0-0.2); BILIRUBIN,TOTAL 0.5 MG/DL (0.2-1.0); BLOOD UREA NITROGEN 6 MG/DL (7-18); CALCIUM LEVEL 9.8 MG/DL (8.5-10.1); CARBON DIOXIDE LEVEL 27 MEQ/L (21-32); CHLORIDE LEVEL 106 MEQ/L (98-107); CK-MB VALUE MASS < 1.0 NG/ML (<3.6); CPK CREATINE PHOSPHOKINASE 84 U/L (26-192); CREATININE FOR GFR 0.78 MG/DL (0.55-1.30); GLOMERULAR FILTRATION RATE > 60.0 (>60); GLUCOSE, FASTING 103 MG/DL (70-100); LIPASE 109 U/L (73-393); MB/CK RELATIVE INDEX 1.19 (< OR =4); POTASSIUM SERUM 4.2 MEQ/L (3.5-5.1); SODIUM LEVEL 140 MEQ/L (136-145); TOTAL PROTEIN 7.2 GM/DL (6.4-8.2); TROPONIN I < 0.02 NG/ML (< 0.10)
[2021-03-18] MEDS ORDERED: ISOVUE-370 76% 100ML VIAL As Ordered ONE (14:55)
--- NOTE | 2021-03-18 15:26 | REP ---
INDICATION: ro pe pleuritic cp COMPARISON: 10/14/2020 TECHNIQUE: CT angiography chest after the intravenous administration of 75 cc Isovue 370. Attention pulmonary arteries FINDINGS: There is excellent visualization of the pulmonary arterial vasculature. No focal filling defects are present that would be considered consistent with acute pulmonary emboli. Limited evaluation of the thoracic aorta shows no abnormality. There is no mediastinal or hilar adenopathy. There is a small right pleural effusion. There is no pericardial effusion. The imaged upper abdomen and imaged osseous structures are within normal limits. Evaluation of the lung adler shows patchy right basilar opacities abutting the pleural effusion. Old calcified granulomas are noted status quo. IMPRESSION: 1. There is no evidence of a pulmonary embolus. 2. There is a small right pleural effusion with patchy right lower lobe opacities secondary to the subsegmental atelectasis and/or developing pneumonia. Follow-up to resolution is suggested. 3. Other findings as described above. <Electronically signed by Alexx Chao > 03/18/21 [id number]
[2021-03-18] MEDS ORDERED: methylPREDNISolone 125MG 2ML VIAL IV ONE (15:50)
[2021-03-18] MEDS: COMBIVENT RESPIMAT 100-20MCG INHALER 4GM INH SCH ×3 (16:10→16:30)
[2021-03-18 17:01] LABS: C REACTIVE PROTEIN QUANTITATIV 0.72 MG/DL (0.00-0.30); FERRITIN 61 NG/ML (8-252); LDH LACTATE DEHYDROGENASE 266 U/L (84-246); MAGNESIUM LEVEL 1.9 MG/DL (1.8-2.4)
--- NOTE | 2021-03-18 17:02 | HPEPDOC ---
General Date of Admission 03/18/21 Date of Service: March 18, 2021 Chief Complaint The patient is a 31-year-old female admitted with a reason for visit of Cheat Pain. Source: Patient Exam Limitations: No limitations History of Present Illness Patient is 31 years old female with past history of Rosendo thyroiditis, splenic infarct, lupus, recent open heart surgery for PFO closure presented hospital with increased shortness of breath for 1 day. Patient stated that since yesterday she has been having cough and increased shortness of breath especially on exertion. She denies fever, chills, nausea, vomiting. Also she reported chest tightness. In ER patient was found to have hypoxia on exertion with oxygen saturation of 88% patient does not have leukocytosis. CT showed There is a small right pleural effusion with patchy right lower lobe opacities secondary to the subsegmental atelectasis and/or developing pneumonia. No pulmonary emboli. Home Medications Scheduled Aspirin (Aspirin) 325 Mg Tablet, 325 MG PO DAILY, (Reported) Cider Vinegar (Apple Cider Vinegar) 300 Mg Tablet, 300 MG PO DAILY, (Reported) Muriel Root (Muriel Root) 550 Mg Capsule, 1,100 MG PO DAILY, (Reported) Turmeric Root Extract (Turmeric) 500 Mg Capsule, 500 MG PO DAILY, (Reported) Allergies Coded Allergies: Sulfa (Sulfonamide Antibiotics) (Verified Allergy, Intermediate, CHILD, 03/16/21) anaph nickel (Verified Allergy, Intermediate, hives and rash, 03/16/21) ENVIROMENTAL (Verified Allergy, Unknown, 03/16/21) adhesive (Verified Adverse Reaction, Mild, SURGICAL GLUE- ITCHING, 03/16/21) Past Medical History Medical History Rosendo thyroiditis, splenic infarct, lupus Surgical History open heart surgery for PFO closure Family History I personally reviewed family history and found not pertinent Social History * Smoker: Denies Alcohol: Denies Drugs: denies A-FIB/CHADSVASC A-FIB History Current/History of A-Fib/PAF?: No Current PO Anticoag Therapy: No Review of Systems Constitutional: Denies: Chills, Fever Eyes: Denies: Pain ENT: Denies: Head Aches Skin: Denies: Rash, Lesions Pulmonary: Reports: Dyspnea Cardiovascular: Denies: Chest Pain, Palpitations Gastrointestinal: Denies: Nausea Genitourinary: Denies: Dysuria Hematologic: Denies: Bruising Endocrine: Denies: Polydipsia Musculoskeletal: Denies: Neck Pain Neurological: Denies: Weakness Psych: Reports: Mood Normal Physical Examination General Exam: Positive: Alert, Cooperative Eye Exam: Positive: PERRLA ENT Exam: Positive: Atraumatic Neck Exam: Positive: Supple; Negative: JVD Chest Exam: Positive: Diminished Heart Exam: Positive: Rate Normal Telemetry: Positive: No significant arrhythmia Extremity Exam: Negative: Clubbing Skin Exam: Positive: Nl turgor and temperature Neuro Exam: Positive: Normal Gait, Strength at 5/5 X4 ext Psych Exam: Positive: Mental status NL Vital Signs Vital Signs Date Time Temp Pulse Resp B/P (MAP) Pulse Ox O2 Delivery O2 Flow Rate FiO2 03/18/21 16:00 97 18 127/84 (98) 99 03/18/21 13:45 98.0 Room Air Laboratory Data Labs 24H Laboratory Tests 2 03/18/21 13:41: Immature Granulocyte % (Auto) 0.4, Neutrophils (%) (Auto) 67.2H, Lymphocytes (%) (Auto) 21.9L, Monocytes (%) (Auto) 6.3, Eosinophils (%) (Auto) 3.9H, Basophils (%) (Auto) 0.3, Neutrophils # (Auto) 6.4, Lymphocytes # (Auto) 2.1, Monocytes # (Auto) 0.6, Eosinophils # (Auto) 0.4, Basophils # (Auto) 0.0, Nucleated Red Blood Cells % (auto) 0.0, Prothrombin Time 12.8, Prothromb Time International Ratio 0.94, Fibrinogen 276, Anion Gap 7L, Glomerular Filtration Rate > 60.0, Calcium Level 9.8, Total Bilirubin 0.5, Direct Bilirubin < 0.1, Aspartate Amino Transf (AST/SGOT) 24, Alanine Aminotransferase (ALT/SGPT) 32, Alkaline Phosphatase 65, Total Creatine Kinase 84, Creatine Kinase MB < 1.0, Creatine Kinase MB Relative Index 1.19, Troponin I < 0.02, Total Protein 7.2, Albumin 3.8, Albumin/Globulin Ratio 1.1L, Lipase 109 CBC/BMP Laboratory Tests 03/18/21 13:41 Microbiology Microbiology 03/18/21 Respiratory Virus Panel (PCR) ([facility]) - Final, Complete SARS-CoV-2 (COVID 19) Assessment/Plan Patient is 31 years old female with past history of Rosendo thyroiditis, splenic infarct, lupus, recent open heart surgery for PFO closure presented hospital with increased shortness of breath for 1 day. Patient stated that since yesterday she has been having cough and increased shortness of breath especially on exertion. She denies fever, chills, nausea, vomiting. Also she reported chest tightness. In ER patient was found to have hypoxia on exertion with oxygen saturation of 88% patient does not have leukocytosis. CT showed There is a small right pleural effusion with patchy right lower lobe opacities secondary to the subsegmental atelectasis and/or developing pneumonia. No pulmonary emboli. Problems (1) COVID-19 Status: Acute Problem Text: CTA negative for pulmonary embolus Labs according to Covid protocol Procalcitonin Remdesevir Iv, dexamethasone IV (2) Pneumonia Status: Chronic Problem Text: Secondary to COVID 19 see above Plan / VTE VTE Prophylaxis Ordered?: Yes LAVERN WU DO March 18, 2021 17:02
[2021-03-18] MEDS ORDERED: ALBUTEROL 90 MCG/ACT 8GM HFA INHALER INH PRN (19:00)
[2021-03-18 20:11] VITALS: BP 137/91
--- NOTE | 2021-03-18 20:32 | ECGEPIP ---
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
[2021-03-18 20:38] LABS: APPEARANCE, URINE CLEAR (CLEAR); BACTERIA, URINE AUTO NEGATIVE (NEGATIVE); BILIRUBIN, URINE AUTO NEGATIVE (NEGATIVE); BLOOD, URINE BLOOD NEGATIVE (NEGATIVE); COLOR, URINE YELLOW (YELLOW); GLUCOSE, URINE (UA) AUTO NEGATIVE (NEGATIVE); KETONE, URINE AUTO NEGATIVE (NEGATIVE); LEUKOCYTE ESTERASE, URINE AUTO NEGATIVE (NEGATIVE); MUCUS, URINE SMALL (NEGATIVE); NITRITE, URINE AUTO NEGATIVE (NEGATIVE); PROTEIN, URINE AUTO NEGATIVE (NEGATIVE); RBC, URINE AUTO 1 /HPF (0-3); SPECIFIC GRAVITY URINE AUTO 1.021 (1.002-1.035); SQUAMOUS EPITHELIAL CELL UR AU 0 /HPF (0-6); UROBILINOGEN, URINE AUTO 0.2 mg/dL (0.0-2.0); WBC, URINE AUTO 1 /HPF (0-3)
[2021-03-18] MEDS ORDERED: REMDESIVIR 200 MG in NS 250 ML IV ONE (21:00)
[2021-03-18] MEDS ORDERED: SODIUM CHLORIDE 0.9% INJ 10 ML SYR IV ONE (23:00)
[2021-03-19 04:17] VITALS: BP 116/70
[2021-03-19 07:28] LABS: BASO % 0.1 % (0.0-1.0); EOS % 0.1 % (0.0-3.0); HEMOGLOBIN 13.5 g/dl (12.0-15.5); LYMPH # 1.1 10^3/uL (1.5-5.0); LYMPH % 13.5 % (24.0-44.0); MEAN CORPUSCULAR HEMOGLOBIN 30.1 pg (27.0-33.0); MEAN CORPUSCULAR HGB CONC 32.9 g/dl (32.0-36.5); MEAN CORPUSCULAR VOLUME 91.3 fl (80.0-96.0); MONO # 0.2 10^3/uL (0.0-0.8); MONO % 2.3 % (2.0-8.0); NEUTROPHILS # 6.9 10^3/uL (1.5-8.5); NEUTROPHILS % 83.5 % (36.0-66.0); PLATELET COUNT, AUTOMATED 379 10^3/uL (150-450); RED BLOOD COUNT 4.49 10^6/uL (4.00-5.40); WHITE BLOOD COUNT 8.3 10^3/uL (4.0-10.0)
[2021-03-19 07:52] LABS: ALBUMIN 3.8 GM/DL (3.2-5.2); ALT/SGPT 27 U/L (12-78); BILIRUBIN,DIRECT 0.1 MG/DL (0.0-0.2); BILIRUBIN,TOTAL 0.4 MG/DL (0.2-1.0); BLOOD UREA NITROGEN 10 MG/DL (7-18); CALCIUM LEVEL 9.3 MG/DL (8.5-10.1); CARBON DIOXIDE LEVEL 25 MEQ/L (21-32); CHLORIDE LEVEL 107 MEQ/L (98-107); CREATININE FOR GFR 0.57 MG/DL (0.55-1.30); GLOMERULAR FILTRATION RATE > 60.0 (>60); GLUCOSE, FASTING 133 MG/DL (70-100); POTASSIUM SERUM 4.2 MEQ/L (3.5-5.1); SODIUM LEVEL 140 MEQ/L (136-145); TOTAL PROTEIN 7.1 GM/DL (6.4-8.2)
[2021-03-19] MEDS ORDERED: dexameTHASONE 4 MG/ML 1ML VIAL (J1100 PER 1MG) IV SCH (09:00)
[2021-03-19] MEDS ORDERED: ASPIRIN 325 MG TAB PO SCH (09:00)
[2021-03-19] MEDS ORDERED: ENOXAPARIN 40MG/0.4ML SYRINGE (J1650 PER 10MG) SC SCH (09:00)
[2021-03-19] MEDS ORDERED: PRED20TA PO (09:57)
--- NOTE | 2021-03-19 14:46 | DS.PDOC ---
Discharge Summary General Date of Admission March 18, 2021 at 16:32 Date of Discharge 03/19/21 Discharge Summary PROCEDURES PERFORMED DURING STAY: [None]. ADMITTING DIAGNOSES: COVID-19 Community acquired pneumonia DISCHARGE DIAGNOSES: COVID-19 Community acquired pneumonia COMPLICATIONS/CHIEF COMPLAINT: Covid+. HISTORY OF PRESENT ILLNESS: Patient is 31 years old female with past history of Rosendo thyroiditis, splenic infarct, lupus, recent open heart surgery for PFO closure presented hospital with increased shortness of breath for 1 day. Patient stated that since yesterday she has been having cough and increased shortness of breath espec ially on exertion. She denies fever, chills, nausea, vomiting. Also she reported chest tightness. In ER patient was found to have hypoxia on exertion with oxygen saturation of 88% patient does not have leukocytosis. CT showed There is a small right pleural effusion with patchy right lower lobe opacities secondary to the subsegmental atelectasis and/or developing pneumonia. No pulmonary emboli. HOSPITAL COURSE: During hospital stay following issues addressed (1) COVID-19 CTA negative for pulmonary embolus Labs according to Covid protocol Procalcitonin negative Patient received treatment with Remdesevir Iv, dexamethasone IV (2) Pneumonia Secondary to COVID 19 see above DISCHARGE MEDICATIONS: Please see below. ALLERGIES: Please see below. PHYSICAL EXAMINATION ON DISCHARGE: VITAL SIGNS: Please see below. General Exam: Positive: Alert, Cooperative Eye Exam: Positive: PERRLA ENT Exam: Positive: Atraumatic Neck Exam: Positive: Supple; Negative: JVD Chest Exam: Positive: Diminished Heart Exam: Positive: Rate Normal Telemetry: Positive: No significant arrhythmia Extremity Exam: Negative: Clubbing Skin Exam: Positive: Nl turgor and temperature Neuro Exam: Positive: Normal Gait, Strength at 5/5 X4 ext Psych Exam: Positive: Mental status NL LABORATORY DATA: Please see below. IMAGING: See above PROGNOSIS: Fair ACTIVITY: [As tolerated]. DIET: Regular DISPOSITION: 01 Home, Self-Care. DISCHARGE INSTRUCTIONS: Follow-up with PCP in the outpatient settings ITEMS TO FOLLOWUP ON ON OUTPATIENT: carantine for 2 weeks DISCHARGE CONDITION: [Stable]. TIME SPENT ON DISCHARGE: 30 minutes. Vital Signs/I&Os Vital Signs Date Time Temp Pulse Resp B/P (MAP) Pulse Ox O2 Delivery O2 Flow Rate FiO2 03/19/21 04:17 98.0 105 18 116/70 (85) 96 Room Air I&O- Last 24 Hours up to 6 AM 03/19/21 06:00 Intake Total 1250 ml Output Total 650 ml Balance 600 ml Laboratory Data Labs 24H Laboratory Tests 2 03/18/21 17:15: Lactic Acid Level 1.5, Procalcitonin <0.05 03/18/21 20:23: Urine Color YELLOW, Urine Appearance CLEAR, Urine pH 6.0, Urine Specific [place] 1.021, Urine Protein NEGATIVE, Urine Glucose (Auto)(UA) NEGATIVE, Urine Ketones (Auto) NEGATIVE, Urine Blood NEGATIVE, Urine Nitrite NEGATIVE, Urine Bilirubin NEGATIVE, Urine Urobilinogen 0.2, Urine Leukocyte Esterase (Auto) NEGATIVE, Urine WBC (Auto) 1, Urine RBC (Auto) 1, Urine Hyaline Casts (Auto) 0, Urine Bacteria (Auto) NEGATIVE, Urine Squamous Epithelial Cells 0, Urine Mucus (Auto) SMALL, Urine Sperm (Auto) 03/19/21 07:09: Immature Granulocyte % (Auto) 0.5, Neutrophils (%) (Auto) 83.5H, Lymphocytes (%) (Auto) 13.5L, Monocytes (%) (Auto) 2.3, Eosinophils (%) (Auto) 0.1, Basophils (%) (Auto) 0.1, Neutrophils # (Auto) 6.9, Lymphocytes # (Auto) 1.1L, Monocytes # (Auto) 0.2, Eosinophils # (Auto) 0.0, Basophils # (Auto) 0.0, Nucleated Red Blood Cells % (auto) 0.0, Anion Gap 8, Glomerular Filtration Rate > 60.0, Calcium Level 9.3, Magnesium Level 2.0, Total Bilirubin 0.4, Direct Bilirubin 0.1, Aspartate Amino Transf (AST/SGOT) 14, Alanine Aminotransferase (ALT/SGPT) 27, Alkaline Phosphatase 64, Total Protein 7.1, Albumin 3.8, Albumin/Globulin Ratio 1.2 CBC/BMP Laboratory Tests 03/19/21 07:09 Microbiology Microbiology 03/18/21 Blood Culture, Received Pending 03/18/21 Blood Culture, Received Pending 03/18/21 Respiratory Virus Panel (PCR) ([facility]) - Final, Complete SARS-CoV-2 (COVID 19) Discharge Medications Scheduled Aspirin (Aspirin) 325 Mg Tablet, 325 MG PO DAILY, (Reported) Cider Vinegar (Apple Cider Vinegar) 300 Mg Tablet, 300 MG PO DAILY, (Reported) Muriel Root (Muriel Root) 550 Mg Capsule, 1,100 MG PO DAILY, (Reported) Prednisone (Prednisone) 20 Mg Tablet, 20 MG PO BID Turmeric Root Extract (Turmeric) 500 Mg Capsule, 500 MG PO DAILY, (Reported) Allergies Coded Allergies: Sulfa (Sulfonamide Antibiotics) (Verified Allergy, Intermediate, CHILD, 03/16/21) anaph nickel (Verified Allergy, Intermediate, hives and rash, 03/16/21) ENVIROMENTAL (Verified Allergy, Unknown, 03/16/21) adhesive (Verified Adverse Reaction, Mild, SURGICAL GLUE- ITCHING, 03/16/21) LAVERN WU DO March 19, 2021 14:46
[2021-03-19] MEDS ORDERED: REMDESIVIR 100 MG in NS 250 ML IV SCH (21:00)
[2021-03-19] MEDS ORDERED: SODIUM CHLORIDE 0.9% INJ 10 ML SYR IV SCH (22:00)
== END 2021-03-19 13:35 | disposition home or self-care (01) | DRG 137 ==
LOC: M ED 13:14 → M 4MAIN 16:32 → ENRESERV 16:53
PROVIDERS: ADMIT Internal Medicine; ATTEND Internal Medicine
PROC: 3E0333Z Introduction of Anti-inflammatory into Peripheral Vein, Percutaneous Approach (ICD-10-PCS; principal; 2021-03-18)
PROC: XW033E5 Introduction of Remdesivir Anti-infective into Peripheral Vein, Percutaneous Approach, New Technology Group 5 (ICD-10-PCS; 2021-03-19)
DX: U07.1 COVID-19 (principal); J12.82 Pneumonia due to coronavirus disease 2019; E06.3 Autoimmune thyroiditis; D73.5 Infarction of spleen; M32.9 Systemic lupus erythematosus, unspecified; Z88.2 Allergy status to sulfonamides; Z91.040 Latex allergy status; Z91.048 Other nonmedicinal substance allergy status; Z79.82 Long term (current) use of aspirin; Z79.899 Other long term (current) drug therapy

== ENCOUNTER 2021-03-30 17:42 | Emergency (ER) | payer OTHER ==
[~2021-03-30] VITALS: Ht 162.6 cm; Wt 97.7 kg
[~2021-03-30 17:42] MED LIST changes: +PRED20TA PO
[2021-03-30 18:24] LABS: BASO % 0.3 % (0.0-1.0); EOS # 0.3 10^3/uL (0.0-0.5); EOS % 2.3 % (0.0-3.0); HEMATOCRIT 41.3 % (36.0-47.0); HEMOGLOBIN 13.5 g/dl (12.0-15.5); LYMPH # 1.9 10^3/uL (1.5-5.0); LYMPH % 13.6 % (24.0-44.0); MEAN CORPUSCULAR HEMOGLOBIN 30.8 pg (27.0-33.0); MEAN CORPUSCULAR HGB CONC 32.7 g/dl (32.0-36.5); MEAN CORPUSCULAR VOLUME 94.1 fl (80.0-96.0); MONO # 1.2 10^3/uL (0.0-0.8); MONO % 8.9 % (2.0-8.0); NEUTROPHILS # 10.2 10^3/uL (1.5-8.5); NEUTROPHILS % 74.4 % (36.0-66.0); PLATELET COUNT, AUTOMATED 350 10^3/uL (150-450); RED BLOOD COUNT 4.39 10^6/uL (4.00-5.40); WHITE BLOOD COUNT 13.7 10^3/uL (4.0-10.0)
[2021-03-30] MEDS ORDERED: ISOVUE-370 76% 100ML VIAL As Ordered ONE (18:25)
[2021-03-30 18:34] LABS: INR 0.94; PROTHROMBIN TIME 12.8 SECONDS (12.5-14.3)
[2021-03-30 18:35] LABS: PARTIAL THROMBOPLASTIN TIME 26.7 SECONDS (24.2-38.5)
[2021-03-30 18:54] LABS: ALBUMIN 3.5 GM/DL (3.2-5.2); BILIRUBIN,DIRECT 0.1 MG/DL (0.0-0.2); BILIRUBIN,TOTAL 0.6 MG/DL (0.2-1.0); FREE T4 0.8 NG/DL (0.76-1.46); THYROID STIMULATING HORMONE 0.54 uIU/ML (0.358-3.740)
[2021-03-30] MEDS ORDERED: LEVO25TA5 PO (18:58)
--- NOTE | 2021-03-30 19:07 | REP ---
INDICATION: CHEST PAIN. COMPARISON: 03/18/2021 FINDINGS: The technique utilized in obtaining the radiograph has magnified the cardiac silhouette and accentuated the interstitial markings. The superior mediastinal structures are midline. The cardiac silhouette is unremarkable in size, shape, and position. The diaphragmatic surfaces of the lungs are regular, and the costophrenic angles are clear. The pulmonary adler are unchanged. There is a nodule in the left lower lobe. This was present on an older chest radiograph of 10/01/2020. The imaged osseous structures are intact. IMPRESSION: There is no acute cardiopulmonary disease. <Electronically signed by Alexx Chao > 03/30/21 [id number]
--- NOTE | 2021-03-30 20:03 | REPVR ---
PROCEDURE INFORMATION: Exam: CTA Chest With Contrast Exam date and time: 03/30/2021 6:46 PM Age: 31 years old Clinical indication: Pain; Other: Left sided cp; Sp hyster; RO pe TECHNIQUE: Imaging protocol: Computed tomographic angiography of the chest with contrast. 3D rendering (Not supervised by radiologist): MIP and/or 3D reconstructed images were created by the technologist. Radiation optimization: All CT scans at this facility use at least one of these dose optimization techniques: automated exposure control; mA and/or kV adjustment per patient size (includes targeted exams where dose is matched to clinical indication); or iterative reconstruction. Contrast material: ISOVUE 370; Contrast volume: 75 ml; Contrast route: INTRAVENOUS (IV); COMPARISON: CT ANGIO CHEST 03/18/2021 3:02 PM FINDINGS: Pulmonary arteries: Normal. No pulmonary emboli. Aorta: Unremarkable. No aortic aneurysm. No aortic dissection. Lungs: See "Pleural spaces" finding. Pleural spaces: Small right pleural effusion with atelectasis at the right lung base. Calcified granulomas in the right lower lobe. Heart: Unremarkable. No cardiomegaly. No pericardial effusion. Lymph nodes: Unremarkable. No enlarged lymph nodes. Bones/joints: Unremarkable. No acute fracture. Soft tissues: Unremarkable. IMPRESSION: No pulmonary embolism. Electronically signed by: Jalen Booth On 03/30/2021 20:03:29 PM
[2021-03-30 20:30] VITALS: BP 110/68
[2021-03-30] MEDS ORDERED: NAPR-837 PO (20:59)
[2021-03-30] MEDS ORDERED: NAPROXEN 250 MG TAB PO ONE (21:00)
--- NOTE | 2021-03-31 06:02 | ECGEPIP ---
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
== END 2021-03-30 21:18 | disposition home or self-care (01) ==
LOC: M ED 17:42
DX: R09.1 Pleurisy (principal); I45.19 Other right bundle-branch block; Z86.16 Personal history of COVID-19; G43.909 Migraine, unspecified, not intractable, without status migrainosus; J30.89 Other allergic rhinitis; Z79.82 Long term (current) use of aspirin; Z79.899 Other long term (current) drug therapy; Z88.2 Allergy status to sulfonamides; Z91.89 Other specified personal risk factors, not elsewhere classified
CPT/HCPCS: 71045; 71275; 80047; 80076; 83605; 83690; 84439; 84443; 85025; 85610; 85730; 87040; 93005; 93041; 94760; 99285; Q9967

== ENCOUNTER → 2021-04-25 | Outpatient (CLI) | payer OTHER ==
[~2021-04-25] MED LIST changes: +CVS1CAP2 PO; +NAPR-837 PO
== END ==
LOC: M LABSMTC 10:34
PROVIDERS: ATTEND Anesthesiology
DX: Z01.818 Encounter for other preprocedural examination (principal); Z11.52 Encounter for screening for COVID-19

== ENCOUNTER 2021-04-30 11:20 | Day surgery (SDC) | payer OTHER ==
[~2021-04-30] VITALS: Ht 162.6 cm; Wt 98.3 kg
[~2021-04-30 11:20] MED LIST changes: +LR 1,000 ML IV ONE; +ceFAZolin SOD 2 GM in IV 1 EA IV ONE
[2021-04-30] MEDS ORDERED: fentaNYL 100 MCG/2 ML INJECTION (J3010) As Ordered ONE (15:19)
[2021-04-30] MEDS ORDERED: LIDOCAINE 2% 100MG/5ML SDV (FOR ANES.) As Ordered ONE (15:19)
[2021-04-30] MEDS ORDERED: MIDAZOLAM INJ 2MG/2ML VIAL (J2250 PER 1MG) As Ordered ONE (15:19)
[2021-04-30] MEDS ORDERED: propofoL 200 MG/20 ML VIAL As Ordered ONE ×2 (15:19→15:20)
[2021-04-30] MEDS ORDERED: ONDANSETRON 4MG/2ML VIAL As Ordered ONE (15:20)
[2021-04-30] MEDS ORDERED: dexameTHASONE 4 MG/ML 1ML VIAL (J1100 PER 1MG) As Ordered ONE (15:20)
[2021-04-30] MEDS ORDERED: CONRAY-60 60% 50ML VIAL (Q9961) As Ordered ONE (15:33)
[2021-04-30] MEDS ORDERED: ACETAMINOPHEN 1000MG 100ML IV BTL (OFIRMEV) (J0131 PER 10MG) As Ordered ONE (15:44)
--- NOTE | 2021-04-30 16:32 | REP ---
INDICATION: FLUORO GUIDANCE. COMPARISON: None. TECHNIQUE: Multiple C-arm views abdomen and pelvis using a C-arm. FINDINGS: Contrast partially opacifies the bilateral pelvocaliceal systems and ureters. Bilateral ureteral stents are placed. The proximal ends of the each stent are coiled in the region of the bilateral renal pelves. The distal ends are coiled in the region of the urinary bladder. IMPRESSION: 16 seconds of fluoroscopy time was utilized. <Electronically signed by Tyrell Blake > 04/30/21 [id number]
[2021-04-30] MEDS ORDERED: OXYC1TAB23 PO (16:34)
[2021-04-30] MEDS ORDERED: OXYB5TAB10 PO (16:34)
[2021-04-30] MEDS ORDERED: oxyBUTYnin 5 MG TAB PO PRN (16:55)
[2021-04-30] MEDS ORDERED: PERCOCET 5MG/325MG TAB PO PRN ×2 (16:55)
[2021-04-30] MEDS ORDERED: fentaNYL 100 MCG/2 ML INJECTION (J3010) IV PRN (16:55)
[2021-04-30] MEDS ORDERED: ONDANSETRON 4MG/2ML VIAL IV PRN (16:55)
[2021-04-30] MEDS ORDERED: LR 1,000 ML IV SCH (16:55)
[2021-04-30] MEDS ORDERED: METOCLOPRAMIDE INJ 10MG/2ML VIAL (J2765 PER 1) IV PRN (16:55)
[2021-04-30 18:45] VITALS: BP 137/64
--- NOTE | 2021-05-01 09:59 | RO ---
OPERATIVE NOTE DATE OF OPERATION: 04/30/2021 PREOPERATIVE DIAGNOSIS: Bilateral ureteroceles. POSTOPERATIVE DIAGNOSIS: Bilateral ureteroceles. PROCEDURES: 1. Cystoscopy. 2. Incision of bilateral ureteroceles. 3. Bilateral retrograde pyelogram with intraoperative interpretation of images. 4. Bilateral ureteral stent placement. SURGEON: Brock Geiegr MD. ALTERATIONS WORKROOM CLERK: None. ANESTHESIA: General. OPERATIVE INDICATIONS: This is a 31-year-old female who was found to have what appeared to be obstructing bilateral ureteroceles. She was brought to the operating room today for treatment. DESCRIPTION OF PROCEDURE: The patient was brought to the operating room and general anesthesia was induced. Prophylactic antibiotics were infused. She was then placed in the dorsal lithotomy position, prepped, and draped in the usual sterile fashion. At this point, a resectoscope was inserted into the urethral meatus and advanced to the bladder. The bladder had no abnormalities other than the bilateral ureteroceles. I then utilized a Brain knife to incise both ureteral orifices until they were widely patent. The decision was made at this point to place bilateral ureteral stents. Bilateral retrograde pyelograms were performed and were notable for bilateral hydronephrosis, mild bilateral hydroureteronephrosis nephrosis with no extravasation and no filling defects. At this point, a guidewire was placed and bilateral ureteral 7-[place]kin[place] x 22-32 cm JJ ureteral stents were placed. Once the wire was removed, there were adequate curls of the stents in the renal pelvises as well as in the bladder. The bladder was emptied of all fluids. This marked the conclusion of the procedure. The patient was taken out of the dorsal lithotomy position, awakened from anesthesia, and transferred to the recovery room in stable condition. ESTIMATED BLOOD LOSS: 5 mL. COMPLICATIONS: None. SPECIMEN: None. PLAN: The patient will follow up in the Urology Clinic in approximately 3-4 weeks for stent removal.
== END 2021-04-30 19:00 | disposition home or self-care (01) ==
LOC: M SDC 11:20
PROVIDERS: ATTEND Urology
DX: N28.89 Other specified disorders of kidney and ureter (principal); N13.30 Unspecified hydronephrosis; E06.1 Subacute thyroiditis; M32.9 Systemic lupus erythematosus, unspecified; R06.02 Shortness of breath; R91.8 Other nonspecific abnormal finding of lung field; Z86.16 Personal history of COVID-19; Z86.718 Personal history of other venous thrombosis and embolism; Z87.440 Personal history of urinary (tract) infections; Z88.2 Allergy status to sulfonamides; Z90.710 Acquired absence of both cervix and uterus; Z91.048 Other nonmedicinal substance allergy status; Z91.09 Other allergy status, other than to drugs and biological substances
CPT/HCPCS: 52290; 52332; 74420; C1769; C2617; J0131; J0690; J1100; J2250; J2405; J2765; J3010; Q9961

== ENCOUNTER → 2021-06-17 | Outpatient (CLI) | payer OTHER ==
[~2021-06-17] MED LIST changes: -LR 1,000 ML IV ONE; +OXYB5TAB10 PO; +OXYC1TAB23 PO; -ceFAZolin SOD 2 GM in IV 1 EA IV ONE
--- NOTE | 2021-06-17 14:20 | REP ---
INDICATION: OTHER SPECIFIED DISORDERS OF KIDNEY AND URETER. COMPARISON: 12/19/2020. TECHNIQUE: Real-time sonographic evaluation of the kidneys is performed. FINDINGS: Renal cortical echogenicity pattern is normal bilaterally and contours are smooth. There is no hydronephrosis bilaterally. In the mid right kidney there is a probable cyst 1.6 x 1.1 x 1.7 cm. In the mid left kidney there is a probable cyst measuring 1.2 x 1.3 x 1.2 cm. The right kidney measures 10.9 x 5.7 x 4.6 cm. Left renal dimensions are 11.0 x 5.3 x 6.3 cm. The urinary bladder is unremarkable. Ureteral jets are not visualized in the urinary bladder with Doppler color evaluation. IMPRESSION: No hydronephrosis. Probable cyst in the mid aspect of each kidney, 1.7 cm maximally on the right and 1.3 cm maximally on the left. <Electronically signed by Tyrell Blake > 06/17/21 [id number]
== END ==
LOC: M RAD 11:13
PROVIDERS: ATTEND Urology
DX: N28.89 Other specified disorders of kidney and ureter (principal)

== ENCOUNTER → 2023-01-28 | Outpatient (CLI) | payer OTHER ==
[~2023-01-28] MED LIST changes: +TOPI-254; -TOPI50TA9
[2023-01-28 13:58] LABS: LUTEINIZING HORMONE 4.5 mIU/ML
[2023-01-28 14:00] LABS: FOLLICLE STIMULATING HORMONE 5.2 mIU/ML
[2023-01-29 21:07] LABS: TESTOSTERONE FREE (DIRECT) 4.8 pg/mL (0.0-4.2)
== END ==
LOC: M PLALAB 10:29
PROVIDERS: ATTEND Obstetrics & Gynecology
DX: N95.1 Menopausal and female climacteric states (principal); L68.0 Hirsutism

== ENCOUNTER → 2023-02-16 | Outpatient (CLI) | payer OTHER | LOC: M WHC 09:16 | PROVIDERS: ATTEND Obstetrics & Gynecology | DX: N63.11 Unspecified lump in the right breast, upper outer quadrant (principal) ==

== ENCOUNTER → 2023-08-17 | Outpatient (CLI) | payer OTHER | LOC: M WHC 09:30 | PROVIDERS: ATTEND Obstetrics & Gynecology | DX: N63.10 Unspecified lump in the right breast, unspecified quadrant (principal) ==

== ENCOUNTER → 2024-09-20 | Outpatient (REF) | payer OTHER ==
[~2024-09-20] MED LIST changes: -CYCL5TAB PO; +CYCL5TAB4 PO; -OXYB5TAB10 PO; +OXYB5TAB14 PO; +TOPI-21; -TOPI-254
== END ==
LOC: M SFHCDERM 17:47
PROVIDERS: ATTEND Physician Assistant
DX: C44.311 Basal cell carcinoma of skin of nose (principal)

== ENCOUNTER → 2024-10-17 | Outpatient (CLI) | payer OTHER | LOC: M WHC 12:35 | PROVIDERS: ATTEND Obstetrics & Gynecology | DX: R92.8 Other abnormal and inconclusive findings on diagnostic imaging of breast (principal) ==

== ENCOUNTER → 2024-12-18 | Outpatient (REF) | payer OTHER | LOC: M SFHCDERM 17:12 | PROVIDERS: ATTEND Dermatology | DX: T14.90XD Injury, unspecified, subsequent encounter (principal) ==

== ENCOUNTER 2025-01-18 10:11 | Emergency (ER) | payer OTHER ==
[~2025-01-18] VITALS: Ht 162.6 cm; Wt 97.5 kg
[2025-01-18 11:56] VITALS: BP 147/92; TEMP 98.4; O2SAT 99
[2025-01-18] MEDS: ACETAMINOPHEN 500 MG TAB PO ONE (12:36)
== END 2025-01-18 12:43 | disposition home or self-care (01) ==
LOC: M ED 10:11 → EDBD 10:11 → M ED 12:43
DX: S06.0X0A Concussion without loss of consciousness, initial encounter (principal); S19.9XXA Unspecified injury of neck, initial encounter; Y92.9 Unspecified place or not applicable; Y93.9 Activity, unspecified; Y99.9 Unspecified external cause status; W00.0XXA Fall on same level due to ice and snow, initial encounter; E28.2 Polycystic ovarian syndrome; E06.3 Autoimmune thyroiditis; Z88.2 Allergy status to sulfonamides; Z91.048 Other nonmedicinal substance allergy status; Z91.09 Other allergy status, other than to drugs and biological substances; Z79.1 Long term (current) use of non-steroidal anti-inflammatories (NSAID); Z79.899 Other long term (current) drug therapy